=== PATIENT | female | born 1950 | race Caucasian/White ===

== ENCOUNTER 2018-09-15 10:05 | Emergency (ER) | payer MEDICARE, SELFPAY ==
[2018-09-15 10:14] VITALS: BP 125/70; PULSE 77; RESP 16; TEMP 36.6; O2SAT 98
--- NOTE | 2018-09-15 10:24 | W.ED.GENAD ---
Discharge Plan Discharge Details Chief Complaint: Nausea/Vomit/Diar Primary Care Provider: Allison Morgan ED Provider: Jony Pina Home Meds and New Rx's Prescriptions: New Cepacol Sorethroat-Cough 5-7.5 mg lozenge 1 fracisco PO Q4H PRN (Reason: cough) Qty: 16 RF: 3 benzonatate [Tessalon Perles] 100 mg capsule 100 mg PO TID PRN (Reason: cough) Qty: 21 RF: 1 Continued triamcinolone acetonide 15 GM cream 15 gm Topical PRN RF: 0 albuterol sulfate [ProAir HFA] 200 PUFF HFA aerosol inhaler 1 puff Inhalation PRN PRNRF: 0 ropinirole [Requip] 0.5 MG tablet 3 mg PO HS RF: 0 ibandronate [Boniva] 150 MG tablet 1 cap PO DIRECTED RF: 0 fluticasone propion-salmeterol [Advair Diskus] 1 EACH blister with device 1 puff Inhalation BID RF: 0 ranitidine HCl [Zantac] 150 MG tablet 150 mg PO BID RF: 0 hyoscyamine sulfate 0.125 mg Tablet 1 tab PO Q6H PRNRF: 0 ferrous sulfate 325 mg (65 mg iron) Tablet 1 tab PO DAILY RF: 0 fluoxetine 20 mg Tablet 1 tab PO DAILY RF: 0 esomeprazole magnesium 40 mg Capsule,Delayed Release(Dr/Ec) 1 cap PO BID RF: 0 oxybutynin chloride 5 mg Tablet Extended Release 24hr 1 tab PO DAILY RF: 0 clobetasol 0.05 % Ointment 1 applic topical DAILY RF: 0 Discharge Instructions Additional Instructions: Please follow-up with Allison Morgan in clinic for recheck in the next 1-2 weeks time. Continue regular medications. May continue Tessalon 3 times daily as needed for cough. Please begin a trial of Cepacol lozenges as needed for cough. May use Benadryl 25 mg at bedtime to aid in sleep. Return if you develop a fever, increased coughing or difficulty breathing, or any other acute concern. Medical Decision Making 68yof presents from home with complaint of 2 mo's intermittent nausea & cough. She is primarily concerned about the spasmodic cough which is been persistent over 6-8 weeks time. She has not had fever, chills, production of sputum. Is minimally improved with her home inhaler [place] ARGENTINA Morgan [place] [facility] [place] Devi Rosa. History of GERD, IBS and functional bowel disorder. Records reviewed including colonoscopy July 31, 2018 normal with the exception of diverticulosis. GERD most recently controlled with Nexium 40 mg twice daily and Zantac 300 mg nightly. Recent trial of antispasmodic Levsin. Medication trials include MiraLAX as needed and Metamucil. She has had unremarkable EGD in the past and unremarkable Olmos pH study in 2018. Patients most recent medication trial with minimal improvement with tessalon and reglan. Stopped the latter due to side effects. Arrives with normal vital signs. She really is mostly concerned about the persistence of her cough. Does not appear to be infectious. Screening chest x-ray obtained without acute findings. Patient given inhaled saline nebulizer. I will add Cepacol lozenges and trial Benadryl at night. Given her history of GERD I would avoid systemic steroids at this time. She is to follow-up with primary care at [facility]. She understands return precautions. HPI General Mode of arrival: ambulatory. Date/Time Provider Initiated Documentation: 09/15/18 10:06. Limitations to Documentation: no limitations. History of Present Illness 68 year old F presents to the emergency department with the chief complaint of 2 mo's cough and nausea, Quality is described as other, Patient reports no radiation. Patient started experiencing this month(s) and it has been intermittent. No relieving factors improve symptom(s), No exacerbating factors reported . Patient did receive the following treatments prior to arrival, other (tessalon/reglan - stopped reglan due to side effects) Related Data Home Medications Medication Instructions Recorded Confirmed albuterol sulfate [ProAir HFA] 1 puff INHALATION PRN PRN 12/10/12 09/15/18 ropinirole [Requip] 3 mg PO HS 09/18/13 02/04/17 triamcinolone acetonide 15 gm TOPICAL PRN script 01/25/14 09/15/18 ibandronate [Boniva] 1 cap PO DIRECTED 12/04/15 09/15/18 fluticasone propion-salmeterol 1 puff INHALATION BID 02/04/17 09/15/18 [Advair Diskus] ranitidine HCl [Zantac] 150 mg PO BID 02/04/17 09/15/18 benzonatate [Tessalon Perles] 100 mg PO TID PRN #21 cap 09/15/18 clobetasol 1 applic TOPICAL DAILY 09/15/18 09/15/18 dextromethorphan-benzocaine 1 fracisco PO Q4H PRN #16 each 09/15/18 [Cepacol Sorethroat-Cough] esomeprazole magnesium 1 cap PO BID 09/15/18 09/15/18 ferrous sulfate 1 tab PO DAILY 09/15/18 09/15/18 fluoxetine 1 tab PO DAILY 09/15/18 09/15/18 hyoscyamine sulfate 1 tab PO Q6H PRN 09/15/18 09/15/18 oxybutynin chloride 1 tab PO DAILY 09/15/18 09/15/18 Previous Rx's Medication Instructions Recorded benzonatate [Tessalon Perles] 100 mg PO TID PRN #21 cap 09/15/18 dextromethorphan-benzocaine 1 fracisco PO Q4H PRN #16 each 09/15/18 [Cepacol Sorethroat-Cough] Allergies Allergy/AdvReac Type Severity Reaction Status Date / Time codeine [Codeine] AdvReac Intermediate Nausea, Unverified 09/15/18 10:19 Vomiting General Stated Complaint: Nausea/Vomit/Diar YULI: 3 Review of Systems Review of Systems 8 systems reviewed and otherwise neg PFSH Medical History Arthritis Asthma GERD (gastroesophageal reflux disease) Hyperlipidemia Osteopenia Surgical History Cholecystectomy Extraction of cataract eye surgery Social History Smoking and Tabacco status: Never Exam Narrative Exam Narrative: GEN: awake, alert, oriented 3. Pleasant, well groomed, interactive. HEAD: Normocephalic, atraumatic ENT: Mucous membranes moist, oropharynx unremarkable, External ear exam unremarkable EYES: PERRL, EOMI NECK: Full ROM, no GIOVANA, no menigismus CHEST/RESP: Nontender, clear to auscultation bilateral, no wheeze/rhonchi/rales CARDIOVASCULAR: RRR, no murmur, rub dana. 2+ Rad pulse bilateral ABDOMEN: Soft, nontender, no mass. +Bowel sounds EXT: Full ROM, no edema, no rash Neuro: Grossly normal neurologic exam, conversant, interactive. Psych: Speech fluent, thoughts congruent, affect normal Course Vital Signs Temperature 36.6 C 09/15/18 10:14 Pulse 77 09/15/18 10:14 Respiratory Rate 16 09/15/18 10:14 Blood Pressure 125/70 09/15/18 10:14 Pulse Oximetry 98 09/15/18 10:14 Temperature 36.6 C 09/15/18 10:14 Temperature Source Temporal Artery Scan 09/15/18 10:14 Pulse 77 09/15/18 10:14 Respiratory Rate 16 09/15/18 10:14 Blood Pressure 125/70 09/15/18 10:14 Blood Pressure Position Sitting 09/15/18 10:14 Pulse Oximetry 98 09/15/18 10:14 Oxygen Delivery Method Room Air 09/15/18 10:14 Oxygen Flow Rate 0 09/15/18 10:14 Pain Level 0 09/15/18 10:14
--- NOTE | 2018-09-15 10:27 | ED.GENADUL_ITS ---
Discharge Plan Discharge Details Chief Complaint: Nausea/Vomit/Diar Primary Care Provider: Allison Morgan ED Provider: Jony Pina Home Meds and New Rx's Prescriptions: New Cepacol Sorethroat-Cough 5-7.5 mg lozenge 1 fracisco PO Q4H PRN (Reason: cough) Qty: 16 RF: 3 benzonatate [Tessalon Perles] 100 mg capsule 100 mg PO TID PRN (Reason: cough) Qty: 21 RF: 1 Continued triamcinolone acetonide 15 GM cream 15 gm Topical PRN RF: 0 albuterol sulfate [ProAir HFA] 200 PUFF HFA aerosol inhaler 1 puff Inhalation PRN PRNRF: 0 ropinirole [Requip] 0.5 MG tablet 3 mg PO HS RF: 0 ibandronate [Boniva] 150 MG tablet 1 cap PO DIRECTED RF: 0 fluticasone propion-salmeterol [Advair Diskus] 1 EACH blister with device 1 puff Inhalation BID RF: 0 ranitidine HCl [Zantac] 150 MG tablet 150 mg PO BID RF: 0 hyoscyamine sulfate 0.125 mg Tablet 1 tab PO Q6H PRNRF: 0 ferrous sulfate 325 mg (65 mg iron) Tablet 1 tab PO DAILY RF: 0 fluoxetine 20 mg Tablet 1 tab PO DAILY RF: 0 esomeprazole magnesium 40 mg Capsule,Delayed Release(Dr/Ec) 1 cap PO BID RF: 0 oxybutynin chloride 5 mg Tablet Extended Release 24hr 1 tab PO DAILY RF: 0 clobetasol 0.05 % Ointment 1 applic topical DAILY RF: 0 Discharge Instructions Additional Instructions: Please follow-up with Allison Morgan in clinic for recheck in the next 1-2 weeks time. Continue regular medications. May continue Tessalon 3 times daily as needed for cough. Please begin a trial of Cepacol lozenges as needed for cough. May use Benadryl 25 mg at bedtime to aid in sleep. Return if you develop a fever, increased coughing or difficulty breathing, or any other acute concern. Medical Decision Making 68yof presents from home with complaint of 2 mo's intermittent nausea & cough. She is primarily concerned about the spasmodic cough which is been persistent over 6-8 weeks time. She has not had fever, chills, production of sputum. Is minimally improved with her home inhaler Followed by ARGENTINA Morgan at [facility] [place] Dr. Devi Rosa. History of GERD, IBS and functional bowel disorder. Records reviewed including colonoscopy July 31, 2018 normal with the exception of diverticulosis. GERD most recently controlled with Nexium 40 mg twice daily and Zantac 300 mg nightly. Recent trial of antispasmodic Levsin. Medication trials include MiraLAX as needed and Metamucil. She has had unremarkable EGD in the past and unremarkable Olmos pH study in 2018. Patients most recent medication trial with minimal improvement with tessalon and reglan. Stopped the latter due to side effects. Arrives with normal vital signs. She really is mostly concerned about the persistence of her cough. Does not appear to be infectious. Screening chest x- ray obtained without acute findings. Patient given inhaled saline nebulizer. I will add Cepacol lozenges and trial Benadryl at night. Given her history of GERD I would avoid systemic steroids at this time. She is to follow-up with primary care at [facility]. She understands return precautions. HPI General Mode of arrival: ambulatory . Date/Time Provider Initiated Documentation: 09/15/18 10:06 . Limitations to Documentation: no limitations . History of Present Illness 68 year old F presents to the emergency department with the chief complaint of 2 mo's cough and nausea, Quality is described as other, Patient reports no radiation. Patient started experiencing this month(s) and it has been intermittent. No relieving factors improve symptom(s), No exacerbating factors reported . Patient did receive the following treatments prior to arrival, other (tessalon/reglan - stopped reglan due to side effects) Related Data Home Medications Medication Instructions Recorded Confirmed albuterol sulfate [ProAir HFA] 1 puff INHALATION PRN PRN 12/10/12 09/15/18 ropinirole [Requip] 3 mg PO HS 09/18/13 02/04/17 triamcinolone acetonide 15 gm TOPICAL PRN script 01/25/14 09/15/18 ibandronate [Boniva] 1 cap PO DIRECTED 12/04/15 09/15/18 fluticasone propion-salmeterol 1 puff INHALATION BID 02/04/17 09/15/18 [Advair Diskus] ranitidine HCl [Zantac] 150 mg PO BID 02/04/17 09/15/18 benzonatate [Tessalon Perles] 100 mg PO TID PRN #21 cap 09/15/18 clobetasol 1 applic TOPICAL DAILY 09/15/18 09/15/18 dextromethorphan-benzocaine 1 fracisco PO Q4H PRN #16 each 09/15/18 [Cepacol Sorethroat-Cough] esomeprazole magnesium 1 cap PO BID 09/15/18 09/15/18 ferrous sulfate 1 tab PO DAILY 09/15/18 09/15/18 fluoxetine 1 tab PO DAILY 09/15/18 09/15/18 hyoscyamine sulfate 1 tab PO Q6H PRN 09/15/18 09/15/18 oxybutynin chloride 1 tab PO DAILY 09/15/18 09/15/18 Previous Rx's Medication Instructions Recorded benzonatate [Tessalon Perles] 100 mg PO TID PRN #21 cap 09/15/18 dextromethorphan-benzocaine 1 fracisco PO Q4H PRN #16 each 09/15/18 [Cepacol Sorethroat-Cough] Allergies Allergy/AdvReac Type Severity Reaction Status Date / Time codeine [Codeine] AdvReac Intermediate Nausea, Unverified 09/15/18 10:19 Vomiting General Stated Complaint: Nausea/Vomit/Diar YULI: 3 Review of Systems Review of Systems 8 systems reviewed and otherwise neg PFSH Medical History Arthritis Asthma GERD (gastroesophageal reflux disease) Hyperlipidemia Osteopenia Surgical History Cholecystectomy Extraction of cataract eye surgery Social History Smoking and Tabacco status: Never Exam Narrative Exam Narrative: GEN: awake, alert, oriented 3. Pleasant, well groomed, interactive. HEAD: Normocephalic, atraumatic ENT: Mucous membranes moist, oropharynx unremarkable, External ear exam unremarkable EYES: PERRL, EOMI NECK: Full ROM, no GIOVANA, no menigismus CHEST/RESP: Nontender, clear to auscultation bilateral, no wheeze/rhonchi/rales CARDIOVASCULAR: RRR, no murmur, rub dana. 2+ Rad pulse bilateral ABDOMEN: Soft, nontender, no mass. +Bowel sounds EXT: Full ROM, no edema, no rash Neuro: Grossly normal neurologic exam, conversant, interactive. Psych: Speech fluent, thoughts congruent, affect normal Course Vital Signs Temperature 36.6 C 09/15/18 10:14 Pulse 77 09/15/18 10:14 Respiratory Rate 16 09/15/18 10:14 Blood Pressure 125/70 09/15/18 10:14 Pulse Oximetry 98 09/15/18 10:14 Temperature 36.6 C 09/15/18 10:14 Temperature Source Temporal Artery Scan 09/15/18 10:14 Pulse 77 09/15/18 10:14 Respiratory Rate 16 09/15/18 10:14 Blood Pressure 125/70 09/15/18 10:14 Blood Pressure Position Sitting 09/15/18 10:14 Pulse Oximetry 98 09/15/18 10:14 Oxygen Delivery Method Room Air 09/15/18 10:14 Oxygen Flow Rate 0 09/15/18 10:14 Pain Level 0 09/15/18 10:14
--- NOTE | 2018-09-15 10:47 | DI.RAD_ITS ---
SYMPTOMS/DIAGNOSIS: PERSISTENT COUGH X 2 MONTHS PA AND LATERAL CHEST: Comparison 05/05/16. The heart is normal in size. The lungs are clear. The mediastinal structures and pleura appear intact. CONCLUSION: Normal chest.
[2018-09-15] MEDS: Benzonatate 100 MG CAP 200 MG PO (11:25)
--- NOTE | 2018-09-15 11:44 | NUR.NOTE ---
Return from xray at 1140. Up to BR, normal void per patient. Dr Pina in to review plans for pending dischargeNursing Note:
[2018-09-15 11:55] VITALS: BP 125/70; PULSE 94; RESP 15; TEMP 36.8; O2SAT 94
== END 2018-09-15 11:56 | disposition home or self-care (01) ==
PROVIDERS: Emergency Provider Emergency Medicine; PCP Nurse Practitioner
DX: R05 Cough (principal); R11.0 Nausea
CPT/HCPCS: 99283; 71046

== ENCOUNTER 2018-12-12 12:18 | Emergency (ER) | payer MEDICARE, SELFPAY ==
[2018-12-12 12:22] VITALS: BP 126/64; PULSE 79; RESP 18; TEMP 36.3; O2SAT 96
--- NOTE | 2018-12-12 13:16 | W.ED.GENAD ---
Discharge Plan Disposition Patient Disposition: HOME Condition: Good Discharge Details Chief Complaint: RashLesion Clinical Impression: Cellulitis of leg without foot, right Primary Care Provider: Allison Morgan ED Provider: Beny Chinchilla Home Meds and New Rx's Prescriptions: New cephalexin [Keflex] 500 mg capsule 500 mg PO QID 7 Days Qty: 28 RF: 0 Continued albuterol sulfate [ProAir HFA] 200 PUFF HFA aerosol inhaler 1 puff Inhalation PRN PRNRF: 0 ropinirole [Requip] 0.5 MG tablet 3 mg PO HS RF: 0 ibandronate [Boniva] 150 MG tablet 1 cap PO DIRECTED RF: 0 fluticasone propion-salmeterol [Advair Diskus] 1 EACH blister with device 1 puff Inhalation BID RF: 0 ranitidine HCl [Zantac] 150 MG tablet 150 mg PO BID RF: 0 ferrous sulfate 325 mg (65 mg iron) Tablet 1 tab PO DAILY RF: 0 fluoxetine 20 mg Tablet 1 tab PO DAILY RF: 0 esomeprazole magnesium 40 mg Capsule,Delayed Release(Dr/Ec) 1 cap PO BID RF: 0 oxybutynin chloride 5 mg Tablet Extended Release 24hr 1 tab PO DAILY RF: 0 Cepacol Sorethroat-Cough 5-7.5 mg lozenge 1 fracisco PO Q4H PRN (Reason: cough) Qty: 16 RF: 3 Medical Decision Making No constitutional symptoms, lesion most consistent with cellulitis. No calf tenderness or leg swelling to suspect DVT. No joint involvement, no recent trauma to suspect fracture, dislocation, joint injury PTC\\\etc. HPI Patient presents with red tender area right anterior lower leg x1.5 days. No fever, chills, lethargy, arthralgias, joint swelling, calf pain, history of DVT or PE. No recent immobilization or trauma/surgery. No history of recurrent skin infections. No recent strenuous exercise or injury which patient can account for to attribute for current symptoms. General Date/Time Provider Initiated Documentation: 12/12/18 13:13. Related Data Home Medications Medication Instructions Recorded Confirmed albuterol sulfate [ProAir HFA] 1 puff INHALATION PRN PRN 12/10/12 12/12/18 ropinirole [Requip] 3 mg PO HS 09/18/13 12/12/18 ibandronate [Boniva] 1 cap PO DIRECTED 12/04/15 12/12/18 fluticasone propion-salmeterol 1 puff INHALATION BID 02/04/17 12/12/18 [Advair Diskus] ranitidine HCl [Zantac] 150 mg PO BID 02/04/17 12/12/18 Cepacol Sorethroat-Cough 1 fracisco PO Q4H PRN #16 each 09/15/18 12/12/18 esomeprazole magnesium 1 cap PO BID 09/15/18 12/12/18 ferrous sulfate 1 tab PO DAILY 09/15/18 12/12/18 fluoxetine 1 tab PO DAILY 09/15/18 12/12/18 oxybutynin chloride 1 tab PO DAILY 09/15/18 12/12/18 cephalexin [Keflex] 500 mg PO QID 7 Days #28 cap 12/12/18 Previous Rx's Medication Instructions Recorded Cepacol Sorethroat-Cough 1 fracisco PO Q4H PRN #16 each 09/15/18 cephalexin [Keflex] 500 mg PO QID 7 Days #28 cap 12/12/18 Allergies Allergy/AdvReac Type Severity Reaction Status Date / Time codeine [Codeine] AdvReac Intermediate Nausea, Unverified 09/15/18 10:19 Vomiting General Stated Complaint: RashLesion YULI: 5 Review of Systems Constitutional Denies chills, Denies fatigue, Denies fever(s) and Denies lethargy Eyes Denies loss of vision ENT Denies nasal congestion and Denies sore throat Cardiovascular Denies chest pain and Denies dyspnea Respiratory Denies cough and Denies dyspnea Gastrointestinal Denies abdominal pain, Denies nausea and Denies vomiting Musculoskeletal Denies back pain, Denies muscle weakness and Denies numbness Integumentary/Breasts Denies rash Neurologic Denies focal weakness, Denies loss of vision and Denies numbness Endocrine Denies fatigue Hematologic/Lymphatic Denies easy bruising [facility] Medical History Arthritis Asthma GERD (gastroesophageal reflux disease) Hyperlipidemia Osteopenia Surgical History Cholecystectomy Extraction of cataract eye surgery Social History Smoking/Tobacco Use Status: Never Alcohol Intake: never Drug use: Never Substance use type: does not use Do you feel safe in your relationship?: Yes Exam Const General: cooperative and comfortable HENMT Head: normal to inspection Ears: hearing grossly normal bilaterally Mouth: moist mucous membranes Eyes Conjunctivae: conjunctivae normal Sclera: sclerae normal EOM: EOM intact bilaterally Neck Neck: trachea midline Resp Effort & Inspection: normal respiratory effort and able to speak in complete sentences Auscultation: clear to auscultation bilaterally Cardio Rate: regular rate Rhythm: regular rhythm Heart Sounds: no murmurs Skin Full body images: 1. 12 cm x 2 cm erythematous tender warm patch, no blistering, no induration, no central clearing Neuro General: alert, awake, tone normal and moves all extremities Speech: speech normal Gait: normal gait Extrem General: normal to inspection Psych Appearance: grossly normal Mental Status: mental status grossly normal Course Vital Signs Temperature 36.3 C L 12/12/18 12:22 Pulse 79 12/12/18 12:22 Respiratory Rate 18 12/12/18 12:22 Blood Pressure 126/64 12/12/18 12:22 Pulse Oximetry 96 12/12/18 12:22 Temperature 36.3 C L 12/12/18 12:22 Temperature Source Temporal Artery Scan 12/12/18 12:22 Pulse 79 12/12/18 12:22 Respiratory Rate 18 12/12/18 12:22 Respiratory Effort 12/12/18 12:22 Blood Pressure 126/64 12/12/18 12:22 Blood Pressure Position Sitting 12/12/18 12:22 Pulse Oximetry 96 12/12/18 12:22 Oxygen Delivery Method Room Air 12/12/18 12:22 Oxygen Flow Rate 0 12/12/18 12:22
== END 2018-12-12 13:38 | disposition home or self-care (01) ==
PROVIDERS: Emergency Provider Physician Assistant Medical; PCP Nurse Practitioner
DX: L03.115 Cellulitis of right lower limb (principal)
CPT/HCPCS: 99283

== ENCOUNTER 2019-01-06 19:48 | Emergency (ER) | payer MEDICARE, SELFPAY ==
[2019-01-06 19:50] VITALS: BP 126/70; PULSE 84; RESP 16; TEMP 36.3; O2SAT 96
[2019-01-06 20:07] LABS: Bilirubin Negative (Negative); Blood Large (Negative); Clarity Cloudy (Clear); Glucose Negative (Negative); Ketones 15 mg/dL (Negative); Leukocyte Esterase Large (Negative); Nitrite Negative (Negative); Urobilinogen 0.2 EU/dL (Up TO 0.2); pH 6.5 (5-8)
[2019-01-06 20:16] LABS: Bacteria Many HPF (Negative); C & S Indicated? Yes
--- NOTE | 2019-01-06 20:16 | ED.GENADUL_ITS ---
Discharge Plan Disposition Patient Disposition: HOME Condition: Good Discharge Details Chief Complaint: Urinary Clinical Impression: UTI (urinary tract infection) Primary Care Provider: Allison Morgan ED Provider: David Leigh Walker Meds and New Rx's Prescriptions: New sulfamethoxazole-trimethoprim [Bactrim DS] 800-160 mg tablet 1 tab PO BID Qty: 12 RF: 0 ondansetron 4 mg tablet,disintegrating 4 mg PO TID-QID PRN (Reason: nausea and vomiting) Qty: 10 RF: 0 Continued albuterol sulfate [ProAir HFA] 200 PUFF HFA aerosol inhaler 1 puff Inhalation PRN PRNRF: 0 ropinirole [Requip] 0.5 MG tablet 3 mg PO HS RF: 0 ibandronate [Boniva] 150 MG tablet 1 cap PO DIRECTED RF: 0 fluticasone propion-salmeterol [Advair Diskus] 1 EACH blister with device 1 puff Inhalation BID RF: 0 ranitidine HCl [Zantac] 150 MG tablet 150 mg PO BID RF: 0 ferrous sulfate 325 mg (65 mg iron) Tablet 1 tab PO DAILY RF: 0 fluoxetine 20 mg Tablet 1 tab PO DAILY RF: 0 esomeprazole magnesium 40 mg Capsule,Delayed Release(Dr/Ec) 1 cap PO BID RF: 0 oxybutynin chloride 5 mg Tablet Extended Release 24hr 1 tab PO DAILY RF: 0 phenazopyridine 100 mg tablet 100 mg PO TID RF: 0 Discharge Instructions Instructions: Urinary Tract Infection in Women (ED) Additional Instructions: The urine does appear infected again. CT scan reveals no kidney stone. Because you were just recently on an antibiotic, we will treat for 1 week. You may take the Pyridium for 2 days. You may use the ondansetron as needed for nausea/vomiting. Follow-up with your primary care at the end of next week to be sure your urine infection has cleared. Return to ED if you develop fever, chills, abdominal pain, persistent vomiting, back or flank pain. Referrals: Allison Morgan [Primary Care Provider] - Discharge Data Discharge Date/Time-TO BE ENTERED AT DEPARTURE: 01/06/19 20:04 Medical Decision Making Patient presenting with urinary complaints. She looks well. She has no fever. She has normal vitals. She has no CVAT but is complaining of lower back d iscomfort right greater than left. Urine is positive for blood and leukocyte esterase. On micro it is reported too many to count red cells and white cells as well as rober-like bacteria. Urine culture from [facility] which was done last month was E. coli pretty much sensitive to everything except amoxicillin and Augmentin. Because of her complaint of back pain with recurrent symptoms so quickly from treatment of UTI, I did elect to get a stone study. This is negative with no evidence of stone. We will treat patient as UTI, however, given recent treatment with antibiotics, we will go ahead and treat with Bactrim for 1 week. She has Pyridium from previous infection that she may take. This did cause nausea last time, so I will also give her Zofran. We will have her follow-up with primary care next week when antibiotic is completed to be sure infection is cleared. Return to ED for fever, chills, abdominal pain, vomiting,\flank pain. Medical Records Medical records reviewed: Yes I reviewed the patient's medical records. Imaging Data Radiologic Study: Imaging: CT Scan Radiologist's impression: EXAM: CT Abdomen and Pelvis Without Contrast EXAM DATE/TIME: 01/06/2019 8:52 PM CLINICAL HISTORY: 68 years old, female; Abdominal pain; Prior surgery; Surgery date: 6+ months; Surgery type: Gallbladder surgery years ago. ; Patient HX: Right sided flank pain x3 hours ago, with UTI. No recent kidney stones no gross hematuria. TECHNIQUE: Imaging protocol: Axial computed tomography images of the abdomen and pelvis without contrast. Coronal and sagittal reformatted images were created and reviewed. Radiation optimization: All CT scans at this facility use at least one of these dose optimization techniques: automated exposure control; mA and/or kV adjustment per patient size (includes targeted exams where dose is matched to clinical indication); or iterative reconstruction. COMPARISON: CT ABD PELVIS WITH CONTRAST 12/05/2015 12:44 AM FINDINGS: Mediastinum: Small hiatal hernia. Liver: Normal. No mass. Gallbladder and bile ducts: Status post cholecystectomy. Pancreas: Normal. No ductal dilation. Spleen: Incidental note made of accessory splenic ossicle. Adrenals: Normal. No mass. Kidneys and ureters: Left renal cyst. Stomach and bowel: Gastric distention noted with fluid material. Appendix: Appendix well seen, within normal limits. Intraperitoneal space: Normal. No free air. No significant fluid collection. Vasculature: Mild atherosclerotic change present in the vasculature. Lymph nodes: Normal. No enlarged lymph nodes. Bladder: Bladder not well distended. Reproductive: Uterine fibroid. Bones/joints: No acute fracture. No dislocation. Soft tissues: Unremarkable. IMPRESSION: No acute abnormality seen to account for symptoms. COMMENT: Preliminary interpretation is based on receipt of 312 image(s). A final report will be issued subsequently. Dictated and Authenticated by: Cheryl Castillo MD. Lab Data Lab results reviewed: Yes I reviewed the patient's lab results. HPI General Mode of arrival: ambulatory . Date/Time Provider Initiated Documentation: 01/06/19 20:03 . Limitations to Documentation: no limitations . Information obtained by: patient, RN notes reviewed and old records reviewed . HPI Narrative: Patient presents to ED with complaints of urinary urgency, frequency, dysuria. Patient was treated for UTI that was diagnosed on the . She was given Keflex. Symptoms did seem to resolve. Today's symptoms have returned. She has urgency, frequency, dysuria. She denies fevers or chills. She denies abdominal pain, nausea, vomiting. She has some low back pain but it seems to be bilateral. She denies flank pain. She denies colic. Related Data Home Medications Medication Instructions Recorded Confirmed albuterol sulfate [ProAir HFA] 1 puff INHALATION PRN PRN 12/10/12 01/06/19 ropinirole [Requip] 3 mg PO HS 09/18/13 01/06/19 ibandronate [Boniva] 1 cap PO DIRECTED 12/04/15 01/06/19 fluticasone propion-salmeterol 1 puff INHALATION BID 02/04/17 01/06/19 [Advair Diskus] ranitidine HCl [Zantac] 150 mg PO BID 02/04/17 01/06/19 esomeprazole magnesium 1 cap PO BID 09/15/18 01/06/19 ferrous sulfate 1 tab PO DAILY 09/15/18 01/06/19 fluoxetine 1 tab PO DAILY 09/15/18 01/06/19 oxybutynin chloride 1 tab PO DAILY 09/15/18 01/06/19 ondansetron 4 mg PO TID-QID PRN #10 tab 01/06/19 phenazopyridine 100 mg PO TID 01/06/19 01/06/19 sulfamethoxazole-trimethoprim 1 tab PO BID #12 tab 01/06/19 [Bactrim DS] Previous Rx's Medication Instructions Recorded ondansetron 4 mg PO TID-QID PRN #10 tab 01/06/19 sulfamethoxazole-trimethoprim 1 tab PO BID #12 tab 01/06/19 [Bactrim DS] Allergies Allergy/AdvReac Type Severity Reaction Status Date / Time codeine [Codeine] AdvReac Intermediate Nausea, Unverified 01/06/19 19:55 Vomiting General Stated Complaint: Urinary YULI: 4 Review of Systems Review of Systems As documented in HPI otherwise negative as below. Const: no fever, chills, weakness Resp: no cough, SOB, pleuritic pain CV: no CP, diaphoresis, edema, syncope GI: no abdominal pain, nausea, vomiting, diarrhea Neuro: no headache, numbness, focal weakness, confusion PFSH Medical History UTI (urinary tract infection) (Acute) Arthritis (Chronic) Asthma (Chronic) GERD (gastroesophageal reflux disease) (Chronic) Hyperlipidemia (Chronic) Osteopenia (Chronic) Surgical History Cholecystectomy (Chronic) eye surgery (Chronic) Extraction of cataract (Inactive) Social History Smoking/Tobacco Use Status: Never Alcohol Intake: never Drug use: Never Substance use type: does not use Do you feel safe in your relationship?: Yes Additional Social history: pt is not alone to assess privately Exam Narrative Exam Narrative: Vitals: Afebrile with normal vitals. Const: WDWN elderly female in NAD. HEENT: NC/AT. Normal facial exam. Eyes: Normal conjunctiva and sclera. Neck: Supple. Trachea midline. Lungs: Normal respiratory effort. Lungs are clear. Cor: RRR without murmur/gallop. Good radial pulses. GI: Soft. NT/ND. No guarding or rebound. Back: No CVAT. Neuro: A+O x 3. CN grossly in tact. Good strength and no focal deficit. Ext: No C/C/E. No deformity or tenderness. Skin: Warm and dry without rash. Course Vital Signs Temperature 97.3 F L 01/06/19 19:50 Pulse 84 01/06/19 19:50 Respiratory Rate 16 01/06/19 19:50 Blood Pressure 126/70 01/06/19 19:50 Pulse Oximetry 96 01/06/19 19:50 Temperature 97.3 F L 01/06/19 19:50 Temperature Source Skin 01/06/19 19:50 Pulse 84 01/06/19 19:50 Respiratory Rate 16 01/06/19 19:50 Respiratory Effort Non-Labored 01/06/19 19:53 Blood Pressure 126/70 01/06/19 19:50 Pulse Oximetry 96 01/06/19 19:50 Pain Level 8 01/06/19 19:56 Lab/Test Results Lab/Test Results: Laboratory Tests Range/Units 01/06/19 20:00 Urine Color (Yellow) Yellow Urine Clarity (Clear) Cloudy Urine pH (5-8) 6.5 Ur Specific [place] (1.005-1.025) 1.020 Urine Protein (Negative) mg/dL 30 H Urine Ketones (Negative) mg/dL 15 H Urine Blood (Negative) Large H Urine Nitrite (Negative) Negative Urine Bilirubin (Negative) Negative Urine Urobilinogen (Up TO 0.2) EU/dL 0.2 Ur Leukocyte Esterase (Negative) Large H Urine Glucose (Negative) mg/dL Negative
--- NOTE | 2019-01-06 20:51 | DI.CT_ITS ---
SYMPTOM/DIAGNOSIS: BACK PAIN WITH UTI, EVAL FOR STONE NONCONTRAST CT ABDOMEN AND PELVIS: Comparison is made with 05 Dec 2015. The patient is status post cholecystectomy. There is no biliary dilatation. The spleen, pancreas, adrenals and right kidney are unremarkable. There is a small low density area in the mid left kidney consistent with a cyst, seen on the previous exam. There is no urinary tract calculus. The urinary bladder is unremarkable and mildly distended. The uterus shows a few fibroids. The ovaries are normal in size. There is no free air, free fluid or bowel dilatation. The appendix appears normal. The aorta is normal in diameter. IMPRESSION: No evidence of urinary tract calculi, hydronephrosis or other acute abnormality.
--- NOTE | 2019-01-06 21:31 | DI.VRAD_ITS ---
EXAM: CT Abdomen and Pelvis Without Contrast EXAM DATE/TIME: 01/06/2019 8:52 PM CLINICAL HISTORY: 68 years old, female; Abdominal pain; Prior surgery; Surgery date: 6+ months; Surgery type: Gallbladder surgery years ago. ; Patient HX: Right sided flank pain x3 hours ago, with UTI. No recent kidney stones no gross hematuria. TECHNIQUE: Imaging protocol: Axial computed tomography images of the abdomen and pelvis without contrast. Coronal and sagittal reformatted images were created and reviewed. Radiation optimization: All CT scans at this facility use at least one of these dose optimization techniques: automated exposure control; mA and/or kV adjustment per patient size (includes targeted exams where dose is matched to clinical indication); or iterative reconstruction. COMPARISON: CT ABD PELVIS WITH CONTRAST 12/05/2015 12:44 AM FINDINGS: Mediastinum: Small hiatal hernia. Liver: Normal. No mass. Gallbladder and bile ducts: Status post cholecystectomy. Pancreas: Normal. No ductal dilation. Spleen: Incidental note made of accessory splenic ossicle. Adrenals: Normal. No mass. Kidneys and ureters: Left renal cyst. Stomach and bowel: Gastric distention noted with fluid material. Appendix: Appendix well seen, within normal limits. Intraperitoneal space: Normal. No free air. No significant fluid collection. Vasculature: Mild atherosclerotic change present in the vasculature. Lymph nodes: Normal. No enlarged lymph nodes. Bladder: Bladder not well distended. Reproductive: Uterine fibroid. Bones/joints: No acute fracture. No dislocation. Soft tissues: Unremarkable. IMPRESSION: No acute abnormality seen to account for symptoms. COMMENT: Preliminary interpretation is based on receipt of 312 image(s). A final report will be issued subsequently. Dictated and Authenticated by: Cheryl Castillo MD. Ordering:PAUL Hernandez MD
[2019-01-06] MEDS: Ondansetron O.D.T. 4 MG TABEF PO ×2 (21:57)
[2019-01-06] MEDS: Sulfameth/Trimeth DS TAB 1 TAB PO ×2 (21:58→21:59)
[2019-01-06 22:01] VITALS: BP 127/66; PULSE 82; RESP 16; O2SAT 95
== END 2019-01-06 20:04 | disposition home or self-care (01) ==
PROVIDERS: Emergency Provider Emergency Medicine; PCP Nurse Practitioner
DX: N39.0 Urinary tract infection, site not specified (principal); R10.31 Right lower quadrant pain; R11.0 Nausea; Z87.440 Personal history of urinary (tract) infections
CPT/HCPCS: 87077; 99284; 74176; 81003; 81015; 87086; 87186

== ENCOUNTER 2019-12-18 18:45 | Emergency (ER) | payer MEDICARE, SELFPAY ==
[2019-12-18 18:56] VITALS: BP 143/71; PULSE 73; RESP 16; TEMP 36.7; O2SAT 98
--- NOTE | 2019-12-18 19:00 | DI.CT_ITS ---
EXAM: CT CERVICAL SPINE WO CLINICAL HISTORY: Fall, neck pain. TECHNIQUE: Imaging Protocol: Axial computed tomography images with coronal and sagittal reformatted images were created and reviewed CONTRAST MATERIAL: Intravenous: Omnipaque 350 Contrast volume:structured data in ml Contrast route:I V - Oral: yes / no COMPARISON: CT HEAD AND CSPINE W/O CONTRAST from 12/04/2015 FINDINGS: Bones: No fracture or dislocations are seen. The alignment of the cervical spine is normal including the cervicovertebral junction and cervicothoracic junction. Degenerative disc changes and facet degenerative changes are seen. Soft Tissues: The soft tissues of the neck are unremarkable. No large disk herniations are identified . No pneumothorax is seen at the lung apices. IMPRESSION: Degenerative changes. No acute abnormality.. RADIATION DOSE DELIVERED: 290.07mGy.cm Total DLP DATA REPOSITORY: All CT scans at this facility are submitted to the National Radiology Data Registry (NRDR) Dose Index Registry (DIR) with the [employer] (ACR). RADIATION OPTIMIZATION: All CT scans at this facility use at least one of these dose optimization te chniques: automated exposure control; mA and/or kV adjustment per patient size (includes targeted exa ms where dose is matched to clinical indication); or iterative reconstruction.
[2019-12-18 19:33] LABS: Abs Immature Grans 0.07 k/cumm (0.0-0.09); Absolute Basophil Count 0.07 k/cumm (0.0-0.2); Absolute Eosinophil Count 0.66 k/cumm (0.0-0.7); Absolute Lymphocyte Count 2.59 k/cumm (1.2-3.4); Absolute Monocyte Count 1.62 k/cumm (0.11-0.7); Basophils % 0.6; Eosinophils % 5.8; HCT 40.8 % (36.0-46.0); HGB 13.7 g/dL (12.0-15.5); Immature Grans % 0.6 %; Lymphocytes % 22.9; Mean Corp. HGB Concentration 33.6 g/dL (32.0-36.0); Mean Corpuscular Hemoglobin 29.7 pg (27.0-33.0); Mean Corpuscular Volume 88.5 fL (80-95); Mean Platelet Volume 10.1 fL (8.0-11.0); Monocytes % 14.3; Neutrophils % 55.8; Platelet Count 331 x1000/uL (130-400); RBC 4.61 m/cumm (4.00-5.20); RBC Distribution Width 12.9 % (11.7-14.6)
[2019-12-18 19:34] LABS: Absolute Neutrophil Count 6.31 k/cumm (1.2-6.7)
[2019-12-18 19:47] LABS: Diff Comment Agrees w/ Instrument
[2019-12-18 19:48] LABS: ALT 47 U/L (14-59); AST 20 U/L (15-37); Albumin 3.4 g/dL (3.4-5.0); Alkaline Phosphatase 94 U/L (46-116); Anion Gap 8.7 mmol/L (3-11); BUN 20 mg/dL (7-18); Bilirubin, Total 0.5 mg/dL (0.2-1.0); CO2 26.3 mmol/L (21.0-32.0); CREATININE 1.02 mg/dL (0.55-1.02); Chloride 106 mmol/L (98-107); Estimated GFR 53.42 (mL/min/1.73m2); Glucose 117 mg/dL (74-106); Potassium 3.7 mmol/L (3.5-5.1); RBC Morphology Normal; Sodium 141 mmol/L (136-145); Total Protein 6.6 g/dL (6.4-8.2)
[2019-12-18 19:49] LABS: Troponin I < 0.05 ng/mL (<0.06)
--- NOTE | 2019-12-18 19:49 | NUR.NOTE ---
Nursing Note: cervical collar applied at 1900 per provider request. Ice pack also applied to left neck.
--- NOTE | 2019-12-18 19:57 | ED.GENADUL_ITS ---
Discharge Plan Disposition Patient Disposition: HOME Condition: Stable Discharge Details Chief Complaint: Nk/Back Pain Clinical Impression: Neck pain Primary Care Provider: Allison Morgan ED Provider: Thong Patricia Home Meds and New Rx's Prescriptions: New cyclobenzaprine 5 mg tablet 5 mg PO TID PRN (Reason: muscle spasm) Qty: 10 RF: 0 Continued albuterol sulfate [ProAir HFA] 200 PUFF HFA aerosol inhaler 1 puff Inhalation PRN PRNRF: 0 ropinirole [Requip] 0.5 MG tablet 3 mg PO HS RF: 0 ibandronate [Boniva] 150 MG tablet 1 cap PO DIRECTED RF: 0 fluticasone propion-salmeterol [Advair Diskus] 1 EACH blister with device 1 puff Inhalation BID RF: 0 ranitidine HCl [Zantac] 150 MG tablet 150 mg PO BID RF: 0 ferrous sulfate 325 mg (65 mg iron) Tablet 1 tab PO DAILY RF: 0 fluoxetine 20 mg Tablet 1 tab PO DAILY RF: 0 esomeprazole magnesium 40 mg Capsule,Delayed Release(Dr/Ec) 1 cap PO BID RF: 0 oxybutynin chloride 5 mg Tablet Extended Release 24hr 1 tab PO DAILY RF: 0 Discharge Instructions Instructions: Neck Pain (ED) Additional Instructions: At this time your blood work, EKG, CT imaging of your neck all reveal no obvious emergent process. Cool and/or warm compresses every 2 hours for 20 minutes. Gentle stretching as tolerated. Flexeril as directed, may cause drowsiness. Ovul-eho-tjysxph medications such as Tylenol and/or Motrin as directed for discomfort. Please watch for new or worsening symptoms and return to the ER for any concerns. I do recommend following up with your primary care provider on Friday as already scheduled. If symptoms persist additional medication may be required or possible outpatient physical therapy. Medical Decision Making This is a 69-year-old female with a history of arthritis, asthma, GERD, hyperlipidemia. She presents with a couple day history of left-sided and posterior neck pain. The pain is worse with movement. It is not described as a searing or burning pain. She denies any radiation of her pain. Pain is worse now today after falling and striking her head. Clinically she appears well, nontoxic. She does have muscular reproducible discomfort to palpation, worse with ipsilateral movement. She has diffuse discomfort to the lateral posterior aspect but no midline bony point tenderness. No obvious head trauma. I do believe given her fall and increased pain, placing her into a c-collar and obtaining CT imaging of her C-spine is perfectly reasonable. Do not believe that a CTA is indicated as I believe that a carotid dissection is extremely low suspicion. Given the symptoms have been present for the past couple of days, I believe that a CBC, CMP, EKG, single troponin is reasonable for cardiac rule out although again extremely low suspicion. Patient is agreeable to this. Patient placed in a c-collar. Initial laboratory values reveal a WBC of 11.3 hemoglobin 13.7 hematocrit 40.8 platelet 331. Electrolytes unremarkable. Creatinine 1.02, estimated GFR 53.42. Troponin is less than 0.05. Patient requests medication for discomfort, reports that the c-collar has made symptoms worse. She was given p.o. Motrin. CT resulted with no evidence of acute abnormality, CT removed. Patient reports that the c-collar made her discomfort worse. She was given IV Toradol and Valium. Upon reevaluation she reports some relief of her symptoms although not resolved completely. She appears well, nontoxic. She remains neurologically intact. Discussed our options, she reports that she has follow- up with her primary care provider on Friday and would like to be discharged. She will take [id number] Tylenol and/or Motrin as directed for her discomfort and I will provide her a short-term prescription for Flexeril. We discussed the importance of gentle stretching, cool and/or warm compresses, and upon reevaluation on Friday if no improvement then additional studies may be indicated, even outpatient physical therapy. Patient comfortable this plan and has no additional questions or concerns. Medical Records Medical records reviewed: Yes I reviewed the patient's medical records. Imaging Data Radiologic Study: Attestation: I personally reviewed and interpreted this imaging study as follows: Imaging: CT Scan Radiologist's impression: Cervical spine and head CT without contrast read by virtual radiology as no evidence of acute bony abnormality. Diffused degenerative disc and facet disease. Lab Data Lab results reviewed: Yes I reviewed the patient's lab results. Lab results narrative: Laboratory Tests Range/Units 12/18/19 12/18/19 19:25 19:25 WBC (4.4-10.8) k/cumm 11.30 H RBC (4.00-5.20) m/cumm 4.61 Hgb (12.0-15.5) g/dL 13.7 Hct (36.0-46.0) % 40.8 MCV (80-95) fL 88.5 MCH (27.0-33.0) pg 29.7 MCHC (32.0-36.0) g/dL 33.6 RDW (11.7-14.6) % 12.9 Plt Count (130-400) x1000/uL 331 MPV (8.0-11.0) fL 10.1 Immature Gran % % 0.6 Neutrophils % 55.8 Lymphocytes % 22.9 Monocytes % 14.3 Eosinophils % 5.8 Basophils % 0.6 Absolute Neutrophils (1.2-6.7) k/cumm 6.31 Absolute Lymphocytes (1.2-3.4) k/cumm 2.59 Absolute Monocytes (0.11-0.7) k/cumm 1.62 H Absolute Eosinophils (0.0-0.7) k/cumm 0.66 Absolute Basophils (0.0-0.2) k/cumm 0.07 Differential Comment Agrees w/ instrument RBC Morphology Normal Sodium (136-145) mmol/L 141 Potassium (3.5-5.1) mmol/L 3.7 Chloride (98-107) mmol/L 106 Carbon Dioxide (21.0-32.0) mmol/L 26.3 Anion Gap (3-11) mmol/L 8.7 BUN (7-18) mg/dL 20 H Creatinine (0.55-1.02) mg/dL 1.02 Estimated GFR/1.73 m2 (mL/min/1.73m2) 53.42 Glucose (74-106) mg/dL 117 H Calcium (8.5-10.1) mg/dL 9.0 Total Bilirubin (0.2-1.0) mg/dL 0.5 AST (15-37) U/L 20 ALT (14-59) U/L 47 Alkaline Phosphatase (46-116) U/L 94 Troponin I (<0.06) ng/mL < 0.05 Total Protein (6.4-8.2) g/dL 6.6 Albumin (3.4-5.0) g/dL 3.4 ECG Data Attestation: I personally reviewed and interpreted this ECG (s) as follows: Interpretation: EKG performed at 1917, reviewed and interpreted with Dr. Lua. Sinus rhythm, ventricular rate of 75. No STEMI HPI General Mode of arrival: ambulatory . Date/Time Provider Initiated Documentation: 12/18/19 18:56 . Limitations to Documentation: no limitations . Information obtained by: patient . HPI Narrative: This is a 69-year-old female with a history of GERD, hyperlipidemia, osteopenia, asthma presenting to the ER with mild left-sided/posterior neck pain that is been ongoing for the past 2-3 days. She denies any obvious initial trauma but reports that it felt like a pulled muscle, thought as though she may have overdone it. She took hfqk-qmw-[id number] medication with some moderate relief. She woke up this morning feeling as though she slept awkwardly and had increased neck discomfort. Around dinner tonight she was walking her dog, had a mechanical fall, falling backward. Denies any LOC. She now reports increased neck discomfort as well as posterior head discomfort. Pain is moderate at rest, increases with movement. She denies any radiation of the pain into her chest, down her arm, shoulder, into her back. She denies any chest pain, shortness of breath whatsoever. She denies numbness, tingling, weakness, abdominal pain, nausea, vomiting. Related Data Home Medications Medication Instructions Recorded Confirmed albuterol sulfate [ProAir HFA] 1 puff INHALATION PRN PRN 12/10/12 12/18/19 ropinirole [Requip] 3 mg PO HS 09/18/13 12/18/19 ibandronate [Boniva] 1 cap PO DIRECTED 12/04/15 12/18/19 fluticasone propion-salmeterol 1 puff INHALATION BID 02/04/17 12/18/19 [Advair Diskus] ranitidine HCl [Zantac] 150 mg PO BID 02/04/17 12/18/19 esomeprazole magnesium 1 cap PO BID 09/15/18 12/18/19 ferrous sulfate 1 tab PO DAILY 09/15/18 12/18/19 fluoxetine 1 tab PO DAILY 09/15/18 12/18/19 oxybutynin chloride 1 tab PO DAILY 09/15/18 12/18/19 cyclobenzaprine 5 mg PO TID PRN #10 tab 12/18/19 Previous Rx's Medication Instructions Recorded cyclobenzaprine 5 mg PO TID PRN #10 tab 12/18/19 Allergies Allergy/AdvReac Type Severity Reaction Status Date / Time codeine [Codeine] AdvReac Intermediate Nausea, Unverified 12/18/19 21:17 Vomiting General Stated Complaint: Nk/Back Pain YULI: 4 Review of Systems Constitutional Constitutional: Denies fatigue, Denies fever(s), Reports headache(s) and Denies weakness Eyes Eyes: Denies change in vision ENT Ears, Nose, Mouth, and Throat: Reports headache(s) and Reports neck pain Cardiovascular Cardiovascular: Denies chest pain and Denies dyspnea Respiratory Respiratory: Denies cough and Denies dyspnea Gastrointestinal Gastrointestinal: Denies abdominal pain, Denies nausea and Denies vomiting Genitourinary Genitourinary: Denies dysuria Musculoskeletal Musculoskeletal: Reports neck pain, Denies numbness and Denies tingling Integumentary/Breasts Skin/Breast: Denies rash Neurologic Neurologic: Reports headache(s), Denies numbness, Denies tingling and Denies weakness Endocrine Endocrine: Denies fatigue PFSH Medical History Arthritis (Chronic) Asthma (Chronic) GERD (gastroesophageal reflux disease) (Chronic) Hyperlipidemia (Chronic) Osteopenia (Chronic) UTI (urinary tract infection) (Acute) Surgical History Cholecystectomy (Chronic) Extraction of cataract (Inactive) eye surgery (Chronic) macular surgery and cataracts Social History Smoking/Tobacco Use Status: Never Alcohol Intake: never Drug use: Never Substance use type: does not use Do you feel safe at home: Yes Do you feel safe in your relationship?: Yes Exam Const General: cooperative, healthy appearing, comfortable and no acute distress Orientation: alert, awake and oriented x3 HENMT Head: normal to inspection, normocephalic and atraumatic Mouth: moist mucous membranes Eyes Conjunctivae: conjunctivae normal Neck Neck: normal visual inspection, full ROM, no lymphadenopathy, no meningeal signs, trachea midline, supple, tender (Left paravertebral and sternocleidomastoid) and other (Increases discomfort with ipsilateral movement) Chest Chest: normal inspection of the chest and normal palpation of entire chest wall Resp Effort & Inspection: normal respiratory effort and able to speak in complete sentences Auscultation: clear to auscultation bilaterally Cardio Rate: regular rate Rhythm: regular rhythm GI Palpation: soft, no pulsatile masses and nontender Back/Spine/Pelvis Back: No back tenderness Skin General skin exam: no rashes or lesions noted Neuro General: patient alert, patient awake, moves all extremities and no focal motor deficits Cranial Nerves: CN's II-XI intact bilaterally Cognition: normal cognition Speech: speech normal Gait: normal gait Motor: muscle tone normal throughout and strength 5/5 throughout Sensory Exam: no sensory deficits noted Extrem General: normal to inspection, full ROM, capillary refill normal, no pedal edema and no calf tenderness Psych Appearance: grossly normal Mental Status: mental status grossly normal Course Vital Signs Vital signs: Vital Signs Temperature 36.7 C 12/18/19 18:56 Pulse 73 12/18/19 18:56 Respiratory Rate 16 12/18/19 18:56 Blood Pressure 143/71 H 12/18/19 18:56 Pulse Oximetry 98 12/18/19 18:56 Temperature 36.7 C 12/18/19 18:56 Temperature Source Tympanic 12/18/19 18:56 Pulse 73 12/18/19 18:56 Respiratory Rate 16 12/18/19 18:56 Respiratory Effort Non-Labored 12/18/19 18:58 Blood Pressure 143/71 H 12/18/19 18:56 Blood Pressure Position Sitting 12/18/19 18:56 Pulse Oximetry 98 12/18/19 18:56 Oxygen Delivery Method Room Air 12/18/19 18:56 Oxygen Flow Rate 0 12/18/19 18:56 Pain Level 7 12/18/19 18:56 Lab/Test Results Lab/Test Results: Laboratory Tests Range/Units 12/18/19 12/18/19 19:25 19:25 WBC (4.4-10.8) k/cumm 11.30 H RBC (4.00-5.20) m/cumm 4.61 Hgb (12.0-15.5) g/dL 13.7 Hct (36.0-46.0) % 40.8 MCV (80-95) fL 88.5 MCH (27.0-33.0) pg 29.7 MCHC (32.0-36.0) g/dL 33.6 RDW (11.7-14.6) % 12.9 Plt Count (130-400) x1000/uL 331 MPV (8.0-11.0) fL 10.1 Immature Gran % % 0.6 Neutrophils % 55.8 Lymphocytes % 22.9 Monocytes % 14.3 Eosinophils % 5.8 Basophils % 0.6 Absolute Neutrophils (1.2-6.7) k/cumm 6.31 Absolute Lymphocytes (1.2-3.4) k/cumm 2.59 Absolute Monocytes (0.11-0.7) k/cumm 1.62 H Absolute Eosinophils (0.0-0.7) k/cumm 0.66 Absolute Basophils (0.0-0.2) k/cumm 0.07 Differential Comment Agrees w/ instrument RBC Morphology Normal Sodium (136-145) mmol/L 141 Potassium (3.5-5.1) mmol/L 3.7 Chloride (98-107) mmol/L 106 Carbon Dioxide (21.0-32.0) mmol/L 26.3 Anion Gap (3-11) mmol/L 8.7 BUN (7-18) mg/dL 20 H Creatinine (0.55-1.02) mg/dL 1.02 Estimated GFR/1.73 m2 (mL/min/1.73m2) 53.42 Glucose (74-106) mg/dL 117 H Calcium (8.5-10.1) mg/dL 9.0 Total Bilirubin (0.2-1.0) mg/dL 0.5 AST (15-37) U/L 20 ALT (14-59) U/L 47 Alkaline Phosphatase (46-116) U/L 94 Troponin I (<0.06) ng/mL < 0.05 Total Protein (6.4-8.2) g/dL 6.6 Albumin (3.4-5.0) g/dL 3.4
[2019-12-18] MEDS: Ibuprofen 800 MG TAB PO (20:00)
--- NOTE | 2019-12-18 20:52 | DI.VRAD_ITS ---
PROCEDURE INFORMATION: Exam: CT Cervical Spine Without Contrast Exam date and time: 12/18/2019 7:10 PM Age: 69 years old Clinical indication: Pain and injury or trauma; Initial encounter; Blunt trauma; Patient HX: Fall, neck pain TECHNIQUE: Imaging protocol: Computed tomography images of the cervical spine without contrast. COMPARISON: CT HEAD AND CSPINE W/O CONTRAST 12/04/2015 9:34 PM FINDINGS: Diffuse degenerative disc and facet disease. No focal subluxation. No fracture is present. No radiopaque foreign body is identified. Parasinous soft tissues unremarkable. Lung apices within normal limits. IMPRESSION: No evidence of acute bony abnormality. Dictated and Authenticated by: Jonas Nino MD. Ordering:ARTHUR Benito MD
[2019-12-18] MEDS: diazePAM 10 MG/2 ML SYR 5 MG IVP (21:24)
[2019-12-18] MEDS: Ketorolac 15 MG/ML VIAL IM (21:25)
[2019-12-18 22:13] VITALS: BP 123/72; PULSE 69; RESP 17; TEMP 36.8; O2SAT 95
[2019-12-18 22:35] VITALS: BP 123/72; PULSE 69; RESP 17; TEMP 36.8; O2SAT 95
== END 2019-12-18 22:35 | disposition home or self-care (01) ==
PROVIDERS: Emergency Provider Physician Assistant; PCP Nurse Practitioner
DX: M54.2 Cervicalgia (principal); W19.XXXA Unspecified fall, initial encounter; Y93.K1 Activity, walking an animal
CPT/HCPCS: 36415; 80053; 93005; 96372; 96374; 99285; 72125; 84484; 85025; 93010; 99284; J1885; J3360; L0172

== ENCOUNTER 2021-12-27 20:07 | Observation (INO) | payer MEDICARE, SELFPAY ==
[2021-12-27] VITALS (34 sets, daily range): BP systolic 96–124; BP diastolic 53–87; PULSE 57–92; RESP 12–29; TEMP 36.8; O2SAT 94–98
--- NOTE | 2021-12-27 20:00 | RT.EKG_ITS ---
APPROVED REPORT Exam: Resting ECG Reason for Exam: syncopal episode Patient Location: E HR:76 bpm ECG Measurements Heart Rate 76 AXIS WY 158 P 47 QRSd 81 QRS 18 QT 399 T 17 QTc 451 Conclusion Sinus rhythm...normal P axis, V-rate 60- 99
--- NOTE | 2021-12-27 20:15 | DI.CT_ITS ---
Exam(s) CT HEAD WO EXAM: CT HEAD WO CLINICAL HISTORY: headache, syncope. TECHNIQUE: Imaging Protocol: Axial computed tomography images with coronal and sagittal reformatted images were created and reviewed COMPARISON: CT HEAD AND CSPINE W/O CONTRAST from 12/04/2015 FINDINGS: Ventricles and Extra axial spaces: Normal in size and morphology for the patient's age. Hemorrhage: None. Cerebral parenchyma: No acute territorial infarct. Midline shift: None. Brainstem/Cerebellum: Normal. Calvarium: Normal. Visualized Paranasal sinuses/Mastoids: Clear. Soft Tissues: There may be a small scalp hematoma overlying the posterior right parietal bone. IMPRESSION: No acute intracranial process. RADIATION DOSE DELIVERED: 686.52mGy.cm Total DLP DATA REPOSITORY: All CT scans at this facility are submitted to the National Radiology Data Registry (NRDR) Dose Index Registry (DIR) with the [employer] ([employer]). RADIATION OPTIMIZATION: All CT scans at this facility use at least one of these dose optimization te chniques: automated exposure control; mA and/or kV adjustment per patient size (includes targeted exa ms where dose is matched to clinical indication); or iterative reconstruction.
--- NOTE | 2021-12-27 20:15 | DI.CT_ITS ---
Exam(s) CT ABDOMEN PELVIS WO EXAM: CT ABDOMEN PELVIS WO CLINICAL HISTORY: RLQ pain, syncope. TECHNIQUE: Imaging Protocol: Axial computed tomography images with coronal and sagittal reformatted images were created and reviewed. COMPARISON: No exams were available for comparison FINDINGS: ABDOMEN: Lung Bases: Normal where visualized. There is a small hiatal hernia. Liver: Normal density. No measurable mass. Gallbladder and biliary tract: Status post cholecystectomy. No biliary ductal dilatation. Pancreas: Normal density, no abnormal calcifications or inflammatory process. Spleen: Normal. Kidneys: Normal size, contour and axis.No radiodense stones or obstructive uropathy. There is a stabl e left renal cyst. Adrenal glands: No mass is seen. Lymph nodes: Within normal limits. Abdominal Aorta: Abdominal portion non-dilated. Atherosclerosis. PELVIS: Bladder:Symmetric distention, no gross wall thickening. Bowel: There is no evidence of bowel obstruction. There is mild wall thickening seen in the ascendin g colon and proximal transverse colon. No evidence of appendicitis. There is a large amount of stoo l in the colon but no bowel wall thickening. Peritoneal cavity: No ascites, collection or mesenteric inflammatory response. No free air. Reproductive organs: Within normal limits. Bones: Within normal limits. Soft Tissues: Within normal limits. IMPRESSION: Possible are mild inflammatory infectious colitis involving the ascending and proximal transverse col ons. RADIATION DOSE DELIVERED: 845.42mGy.cm Total DLP DATA REPOSITORY: All CT scans at this facility are submitted to the National Radiology Data Registry (NRDR) Dose Index Registry (DIR) with the [employer] ([employer]). RADIATION OPTIMIZATION: All CT scans at this facility use at least one of these dose optimization te chniques: automated exposure control; mA and/or kV adjustment per patient size (includes targeted exa ms where dose is matched to clinical indication); or iterative reconstruction.
--- NOTE | 2021-12-27 20:22 | DI.RAD_ITS ---
Exam(s) XR CHEST 1V IN DI DEPT EXAM: XR CHEST 1V IN DI DEPT CLINICAL HISTORY: syncope TECHNIQUE: 2D digital imaging was performed of the chest. One image was obtained. An AP view was ob tained. COMPARISON: CR PORTABLE CHEST ONE VIEW from 05/05/2016 FINDINGS: MEDIASTINUM: Normal. The tracheal deviation appears stable compared to prior examinations particularl y examination from 05/05/2016. HEART: Normal. PULMONARY VASCULATURE: Normal. LUNGS: Clear. PLEURAL SPACE: No pleural effusion or pneumothorax. BONE:Within normal limits for the patient's age. OTHER FINDINGS:Normal. IMPRESSION: No acute pulmonary findings. DATA REPOSITORY: RADIATION DOSE DELIVERED:
--- NOTE | 2021-12-27 20:28 | W.ED.GENAD ---
Discharge Plan Disposition Patient Disposition: [facility] INPATIENT Condition: Stable Discharge Details Clinical Impression: AMS (altered mental status) Admit Date/Time: 12/27/21 23:36 Admit Provider: Nathan Isaac Attending Provider: Nathan Isaac Primary Care Provider: Allison Morgan ED Provider: Deya Chu Discharge Data Discharge Date/Time-TO BE ENTERED AT DEPARTURE: 12/28/21 04:03 Medical Decision Making Patient initially described a story of a syncopal event, however upon arrival of her he does report possible seizure-like activity without tonic-clonic activity which lasted approximately 1 minute She was confused per her after the event but was able to answer some questions Upon arrival in the emergency department she had fluid speech was cognitively intact with a nonfocal neurological exam, tired in appearance CT of her head does not show acute abnormality Chest x-ray did not show acute abnormality per radiology interpretation my review Diagnostic labs are within normal limits, very mild hypokalemia at 3.4, mag within normal limits Denies any illicit drug use and does not appear to be under the influence of any mood altering substances Denies any new medications or history of similar symptoms in the past I did order CT abdomen and pelvis that she did have some abdominal discomfort and her initial presentation concerning Think she benefit from overnight admission for observation given her alteration in mental status with subsequent resolution of symptoms and upon reassessment, she alert and oriented and is at her cognitive baseline per her , patient is conversant and appropriate with nonfocal neurological exam Dr. Isaac will admit patient for observation status at this time She was given a loading dose Keppra 500 mg IV She is full CODE STATUS, confirmed Medical Records Medical records reviewed: Yes I reviewed the patient's medical records. Lab Data Lab results reviewed: Yes I reviewed the patient's lab results. HPI General Date/Time Provider Initiated Documentation: 12/27/21 20:11. HPI Narrative: This 71-year-old female with history of COPD presents with report of syncope versus seizure with alteration mental status. Patient reportedly was watching TV when she experienced some nausea followed by a syncopal event or alteration in mental status. Has been states that she was unresponsive for approximately a minute. There is some tremulousness but denies obvious seizure-like activity. She was alert and oriented when she awoke. She denies any shortness of breath or chest pain prior to episode. She states she had an episode approximately 2 years ago but was not assessed at that time. She denies any known seizure history. She denies any any known injuries. She has no pain complaints at this time. She denies any specifically denies any chest pain or calf pain or swelling. Denies prior history of coagulopathy. Denies any falls or injuries. Feels weak and tired at this time. Related Data Home Medications Medication Instructions Recorded Confirmed albuterol sulfate 90 mcg/actuation 1 puff inhalation PRN PRN 12/10/12 12/28/21 aerosol inhaler (ProAir HFA) fluticasone 250 mcg-salmeterol 50 1 puff inhalation BID 02/04/17 12/28/21 mcg/dose blistr powdr for inhalation (Advair Diskus) esomeprazole magnesium 40 mg 1 cap PO BID 09/15/18 12/28/21 capsule,delayed release fluoxetine 20 mg tablet 1 tab PO DAILY 09/15/18 12/28/21 atorvastatin 20 mg tablet 20 mg PO DAILY 12/28/21 12/28/21 baclofen 10 mg tablet 10 mg PO BID 12/28/21 12/29/21 famotidine 40 mg tablet 40 mg PO BID 12/28/21 12/28/21 ropinirole 1 mg tablet 3 tab PO HS 12/29/21 12/29/21 solifenacin 5 mg tablet 2 tab PO DAILY 12/29/21 12/29/21 tolterodine 2 mg tablet 1 tab PO BID 12/29/21 12/29/21 Allergies Allergy/AdvReac Type Severity Reaction Status Date / Time codeine [Codeine] AdvReac Intermediate Nausea, Unverified 12/18/19 21:17 Vomiting General Stated Complaint: Seizure YULI: 2 Review of Systems All systems reviewed & are unremarkable except as noted in HPI and below PFSH All Active Problems (Updated 12/30/21 @ 00:03 by JUSTYN ANDERSON) Abnormal abdominal CT scan (Acute) Convulsive syncope (Acute) Depression (Chronic) Restless leg syndrome (Chronic) Seizure (Acute) Medical History (Updated 12/30/21 @ 00:03 by JUSTYN ANDERSON) Arthritis Asthma GERD (gastroesophageal reflux disease) Hyperlipidemia Osteopenia UTI (urinary tract infection) Surgical History Cholecystectomy Extraction of cataract eye surgery macular surgery and cataracts Social History Smoking/Tobacco Use Status: Never Smoking risk assessment performed?: Yes Alcohol Intake: never Drug use: Never Substance use type: does not use Do you feel safe at home: Yes Do you feel safe in your relationship?: Yes Exam Const General: cooperative and no acute distress HENMT Head: normal to inspection Other: Moist mucous membranes, no hemotympanum No evidence of intraoral trauma Eyes Pupils: PERRL Resp Effort & Inspection: normal respiratory effort Auscultation: clear to auscultation bilaterally Cardio Rate: regular rate Rhythm: regular rhythm Heart Sounds: no murmurs GI Inspection: normal to inspection Auscultation: normal bowel sounds Skin Other: Pallor Neuro General: patient alert, patient oriented x3 and CN's II-XI intact bilaterally Cranial Nerves: CN's II-XI intact bilaterally and tongue midline Cognition: normal cognition Speech: other (slowed speech) Motor: strength 5/5 throughout Sensory Exam: no sensory deficits noted Other: Negative pronator drift, negative [id number] Extrem General: normal to inspection Other: Distal pulses intact Course Vital Signs Vital signs: Vital Signs Temperature 36.8 C 12/27/21 20:08 Pulse 76 12/27/21 20:08 Respiratory Rate 16 12/27/21 20:08 Blood Pressure 124/58 L 12/27/21 20:08 Pulse Oximetry 97 12/27/21 20:08 Temperature 36.8 C 12/27/21 20:08 Temperature Source Oral 12/27/21 20:08 Pulse 76 12/27/21 20:08 Respiratory Rate 16 12/27/21 20:08 Respiratory Effort 12/27/21 20:16 Respiratory Depth Normal 12/27/21 20:16 Respiratory Pattern Normal 12/27/21 20:16 Blood Pressure 124/58 L 12/27/21 20:08 Blood Pressure Position Supine 12/27/21 20:08 Pulse Oximetry 97 12/27/21 20:08 Oxygen Delivery Method Room Air 12/27/21 20:08 Oxygen Flow Rate 0 12/27/21 20:08 Pain Level 0 12/27/21 20:08 PAWSS Have you Been Recently Intoxicated or Drunk Within the Last 30 days?: No Have you Ever Experienced Previous Episodes of Alcohol Withdrawal?: No Have you ever Experienced Withdrawal Seizures?: No Have you ever Experienced Delirium Tremens(DT)s?: No Have you ever undergone Alcohol Rehabilitation Treatment (i.e, inpt ot outpatient treatment programs)?: No Have you ever Experienced Blackouts?: No Have you ever Combined Alcohol with other Downers within the last 90 days?: No Have you ever Combined Alcohol with any other Substance of Abuse during the last 90 days?: No Positive Blood Alcohol level on Presentation? [PCS.BAL]: No Evidence of Increased Autonomic Activity (i.e. HR>120, tremor, sweating, agitation, nausea)?: No Result: 0
[2021-12-27 20:54] LABS: Abs Immature Grans 0.07 10^3/uL (0.0-0.06); Absolute Eosinophil Count 0.33 10^3/uL (0.0-0.7); Absolute Lymphocyte Count 2.57 10^3/uL (1.2-3.4); Absolute Monocyte Count 1.56 10^3/uL (0.1-0.8); Absolute Neutrophil Count 5.73 10^3/uL (1.2-6.7); Eosinophils % 3.2; HCT 38.9 % (36.0-46.0); HGB 13.4 g/dL (11.2-15.7); Immature Grans % 0.7; Lymphocytes % 24.8; MCH 30.5 pg (27.0-33.0); MCHC 34.4 % (32.0-36.0); MCV 88 fL (80-95); MPV 10.7 fL (8.0-11.0); Monocytes % 15.1; Neutrophils % 55.2; Platelet Count 271 10^3/uL (130-400); RDW 12.5 % (11.7-14.6); WBC 10.36 10^3/uL (4.4-10.8)
[2021-12-27 21:03] LABS: ALT 41 U/L (14-59); AST 22 U/L (15-37); Albumin 3.4 g/dL (3.4-5.0); Alkaline Phosphatase 80 U/L (46-116); Anion Gap 8.3 mmol/L (3-11); BUN 17 mg/dL (7-18); Bilirubin, Total 0.5 mg/dL (0.2-1.0); CO2 25.7 mmol/L (21.0-32.0); CREATININE 0.9 mg/dL (0.55-1.02); Calcium 8.6 mg/dL (8.5-10.1); Chloride 103 mmol/L (98-107); Glucose 122 mg/dL (74-106); Lipase 39 U/L (73-393); Potassium 3.4 mmol/L (3.5-5.1); Sodium 137 mmol/L (136-145); Total Protein 6.3 g/dL (6.4-8.2); Troponin I < 50 ng/L (<or=60)
[2021-12-27] MEDS: Lactated Ringers 1,000 ML 1000 ML IV (21:08)
[2021-12-27 21:20] LABS: Diff Comment Diff Reviewed; FREE T4 0.89 ng/dL (0.76-1.46); RBC Morphology Normal
[2021-12-27 21:29] LABS: Bilirubin Negative (Negative); Blood Negative (Negative); Clarity Clear (Clear); Glucose Negative (Negative); Ketones Negative (Negative); Leukocyte Esterase Negative (Negative); Nitrite Negative (Negative); Specific Gravity >= 1.030 (1.005-1.025); Urobilinogen 0.2 EU/dL (Up TO 0.2); pH 5.5 (5-8)
--- NOTE | 2021-12-27 22:32 | DI.VRAD_ITS ---
PROCEDURE INFORMATION: Exam: CT Head Without Contrast Exam date and time: 12/27/2021 9:51 PM Age: 71 years old Clinical indication: Syncope and collapse TECHNIQUE: Imaging protocol: Computed tomography of the head without contrast. Radiation optimization: All CT scans at this facility use at least one of these dose optimization techniques: automated exposure control; mA and/or kV adjustment per patient size (includes targeted exams where dose is matched to clinical indication); or iterative reconstruction. COMPARISON: CT HEAD AND CSPINE W/O CONTRAST 12/04/2015 9:34 PM FINDINGS: Brain: There is no significant cerebral atrophy present. There is no significant white matter disease present. There is no evidence of intracranial hemorrhage. There is no evidence of acute intracranial injury or other pathologic process. Cerebral ventricles: The ventricular system is normal in caliber and are seen in the midline. Paranasal sinuses: There is no evidence of fluid levels, mucoperiosteal thickening, or opacification to suggest acute or chronic sinusitis. Mastoid air cells: Sclerosis and soft tissue density seen within the mastoid air cells consistent with chronic or remote mastoiditis. No evidence of air-fluid levels to suggest acute mastoiditis. The mastoid aircells are normal. Orbital cavities: There is no evidence of retro-bulbar hemorrhage. There is no evidence of globe or lens injury. Bones/joints: The orbits are normal without evidence of fracture. The bony cranium shows no evidence of injury or other acute pathologic processes. Soft tissues: There is probable small scalp hematoma present on image 81 series 7 within the posterior parietal region. Other findings: There is no evidence of an acute ischemic event. No evidence of an acute intracranial abnormality. IMPRESSION: 1. There is probable small scalp hematoma present on image 81 series 7 within the posterior parietal region. 2. No evidence of an acute intracranial abnormality. Dictated and Authenticated by: Isaiah Su MD. Ordering:YOLANDA Flak MD
[2021-12-27 23:13] LABS: Magnesium 2.3 mg/dL (1.8-2.4)
--- NOTE | 2021-12-27 23:32 | HPE_ITS ---
Date of service: 12/27/21 Time of Service: 23:32 Assessment and Plan Assessment and plan (1) Seizure: Start date: 12/27/21 Status: Acute Assessment and plan: This is a 71-year-old lady who had a possible seizure at home and prolonged altered mental status after her event. She was wanting to get up to go the bathroom with a full bladder and this could have been a vasovagal event though she appears to have a prolonged episode of altered mental status. She appeared postictal to the ED physician. This cleared before coming to the medical surgical floor. Patient will have MRI and neurological consultation having been given a loading dose of Keppra with this to be determined whether she continues on treatment for possible seizure disorder. Hopefully EEG can be accomplished. She is at baseline presently. (2) Restless leg syndrome: Status: Chronic Assessment and plan: Continue outpatient medical therapy. (3) Depression: Status: Chronic Assessment and plan: Continue outpatient medical therapy. History of Present Illness History of Present Illness Chief Complaint: Possible seizure Narrative: This is a 71-year-old female patient who was brought to the emergency room after her witnessed a possible seizure-like activity at home which was not tonic-clonic but lasted for a minute with the patient confused after the event. She was sitting in her chair and had some symptoms of nausea and felt that that she needed to urinate. The ED physician reported that the patient did go to the bathroom but did not urinate and was found confused which lasted until she came to the ED when the patient was became more familiar with her surroundings. She does not have any incontinence of urine or stool. It is possible she was having vagal symptoms with a full bladder but she did not urinate or lose her bladder control. Because of her alteration mental status and possibility of seizure activity with imaging unrevealing other than some abnormal chest x-ray and CT of the abdomen findings that were not pertinent to her presentation, the patient was admitted after being loaded with Keppra 1000 mg IV. Hopefully the patient can be seen by neurology and MRI of the brain can be accomplished to further assess her episode. She has of history of head trauma recently. She appears to have no focal neurological complaints. Review of Systems Narrative: 13 point review of systems otherwise unrevealing or stable. Patient lives with her and is functioning well at home. [facility] All Active Problems (Updated 12/28/21 @ 20:32 by Nathan Isaac) Discharge planning issues (Acute) DVT prophylaxis (Acute) Convulsive syncope (Acute) Depression (Chronic) Restless leg syndrome (Chronic) Seizure (Acute) Medical History (Updated 12/28/21 @ 20:32 by Nathan Isaac) Arthritis Asthma GERD (gastroesophageal reflux disease) Hyperlipidemia Osteopenia UTI (urinary tract infection) Surgical History Cholecystectomy Extraction of cataract eye surgery macular surgery and cataracts Social History Smoking/Tobacco Use Status: Never Smoking risk assessment performed?: Yes Alcohol Intake: never Drug use: Never Substance use type: does not use Do you feel safe at home: Yes Do you feel safe in your relationship?: Yes Meds Allergies and Home Medications Allergies Allergy/AdvReac Type Severity Reaction Status Date / Time codeine [Codeine] AdvReac Intermediate Nausea, Unverified 12/18/19 21:17 Vomiting Home Medications Medication Instructions Recorded Confirmed Type albuterol sulfate 90 mcg/actuation 1 puff inhalation PRN PRN 12/10/12 12/28/21 History aerosol inhaler (ProAir HFA) ropinirole 0.5 mg tablet (Requip) 3 mg PO HS 09/18/13 12/28/21 History fluticasone 250 mcg-salmeterol 50 1 puff inhalation BID 02/04/17 12/28/21 History mcg/dose blistr powdr for inhalation (Advair Diskus) esomeprazole magnesium 40 mg 1 cap PO BID 09/15/18 12/28/21 History capsule,delayed release fluoxetine 20 mg tablet 1 tab PO DAILY 09/15/18 12/28/21 History cyclobenzaprine 5 mg tablet 5 mg PO TID PRN muscle spasm #10 12/18/19 12/28/21 Rx tabs atorvastatin 20 mg tablet 20 mg PO DAILY 12/28/21 12/28/21 History baclofen 10 mg tablet 10 mg 12/28/21 History famotidine 40 mg tablet 40 mg PO BID 12/28/21 12/28/21 History Exam Narrative Exam Narrative: General: Patient appears appropriate for age, alert and oriented to person, pl du and time. She is in no acute distress. She is lying in bed with the head at a 45 degree angle. HEENT: Normocephalic, eyes with pupils equal and reactive to light symmetrically, extraocular movement intact and sclera anicteric. Oropharynx with moist mucosa. Neck: Supple without JVD or bruits. Back: Kyphotic with no CVA tenderness. Lungs: Fair aeration with bronchovesicular breath sounds diffusely and no focalizing rales or rhonchi. No expiratory wheeze. Heart: Regular rate and rhythm with no appreciable murmur or gallop. Breast: Exam deferred. Abdomen: Scaphoid contour, soft and nontender to palpation with no palpable hepatosplenomegaly. No guarding or rebound. Bowel sounds positive in all quadrants. Genitalia/rectal: Exam deferred. Extremities: Without clubbing, cyanosis or pitting edema. Skin: Pale, warm and dry with no rashes. Fair turgor. Neuro: Cranial nerves II through XII grossly intact, no focalizing motor deficits and no tremor. Psych: Normal affect and mood, no abnormal thought processes manifested. Remote and recent memory appear to be grossly intact. Patient does not have recollection of her event or being in the bathroom. She remembers being in her chair and then in the ED. Results Imaging Imaging Studies: Exam: CT Head Without Contrast Exam date and time: 12/27/2021 9:51 PM Age: 71 years old Clinical indication: Syncope and collapse TECHNIQUE: Imaging protocol: Computed tomography of the head without contrast. Radiation optimization: All CT scans at this facility use at least one of these dose optimization techniques: automated exposure control; mA and/or kV adjustment per patient size (includes targeted exams where dose is matched to clinical indication); or iterative reconstruction. COMPARISON: CT HEAD AND CSPINE W/O CONTRAST 12/04/2015 9:34 PM FINDINGS: Brain: There is no significant cerebral atrophy present. There is no significant white matter disease present. There is no evidence of intracranial hemorrhage. There is no evidence of acute intracranial injury or other pathologic process. Cerebral ventricles: The ventricular system is normal in caliber and are seen in the midline. Paranasal sinuses: There is no evidence of fluid levels, mucoperiosteal thickening, or opacification to suggest acute or chronic sinusitis. Mastoid air cells: Sclerosis and soft tissue density seen within the mastoid air cells consistent with chronic or remote mastoiditis. No evidence of air-fluid levels to suggest acute mastoiditis. The mastoid aircells are normal. Orbital cavities: There is no evidence of retro-bulbar hemorrhage. There is no evidence of globe or lens injury. Bones/joints: The orbits are normal without evidence of fracture. The bony cranium shows no evidence of injury or other acute pathologic processes. Soft tissues: There is probable small scalp hematoma present on image 81 series 7 within the posterior parietal region. Other findings: There is no evidence of an acute ischemic event. No evidence of an acute intracranial abnormality. IMPRESSION: 1. There is probable small scalp hematoma present on image 81 series 7 within the posterior parietal region. 2. No evidence of an acute intracranial abnormality. Dictated and Authenticated by: Isaiah Su MD. Exam: CT Abdomen And Pelvis Without Contrast Exam date and time: 12/27/2021 9:53 PM Age: 71 years old Clinical indication: Other: Syncope; Abdominal pain; Generalized; Additional info: Syncope, abd pain TECHNIQUE: Imaging protocol: Computed tomography of the abdomen and pelvis without contrast. Radiation optimization: All CT scans at this facility use at least one of these dose optimization techniques: automated exposure control; mA and/or kV adjustment per patient size (includes targeted exams where dose is matched to clinical indication); or iterative reconstruction. COMPARISON: CT renal colic wo 01/06/2019 9:05 PM FINDINGS: Heart: Diminished attenuation of the cardiac chambers in comparison to the myocardium which can be seen with anemia. Correlate clinically. No coronary artery calcifications. Liver: There is diffuse decrease in hepatic parenchymal density, consistent with mild fatty infiltration. No mass. Gallbladder and bile ducts: The patient is status post cholecystectomy. No biliary ductal dilatation. Pancreas: Normal. No ductal dilation. Spleen: Normal. No splenomegaly. Adrenal glands: Normal. No mass. Kidneys and ureters: Simple 1.5 cm cyst in interpolar left kidney. No hydronephrosis. Stomach and bowel: Minimal gastric distension. No dilated loops of small bowel. Distal sigmoid and rectal portions of colon minimally distended with stool. Colon otherwise normal in caliber. At least minimal colonic wall thickening is demonstrated in distal ascending and proximal transverse portions and there is fat stranding about distal ascending colon. There is a large amount of stool in the colon. Appendix: No evidence of appendicitis. Intraperitoneal space: Unremarkable. No free air. No significant fluid collection. Vasculature: Unremarkable. No abdominal aortic aneurysm. Lymph nodes: Unremarkable. No enlarged lymph nodes. Urinary bladder: Unremarkable as visualized. Reproductive: Unremarkable as visualized. Bones/joints: The spine demonstrates mild degenerative changes at multiple levels. Soft tissues: Unremarkable. IMPRESSION: 1. Possible localized colitis involving ascending and transverse portions. 2. There is a large amount of stool in the colon. 3. Anemia suspected. Dictated and Authenticated by: Michael Silvestre MD. Exam: XR Chest Exam date and time: 12/27/2021 9:59 PM Age: 71 years old Clinical indication: Other: Syncope TECHNIQUE: Imaging protocol: Radiologic exam of the chest. Views: 1 view. COMPARISON: CR XR CHEST 2V PA LATERAL 09/15/2018 11:25 AM FINDINGS: Lungs: Tracheal deviation to the right at level of transverse aorta is more pronounced. No consolidation. Pleural spaces: Unremarkable. No pleural effusion. No pneumothorax. Heart/Mediastinum: Unremarkable. No cardiomegaly. Bones/joints: Degenerative changes. IMPRESSION: Tracheal deviation to the right is more pronounced in may be entirely due to uncoiling and dilatation of thoracic aorta. Other etiologies cannot be excluded contributing to the abnormality. Consider further evaluation with CT of the chest. Dictated and Authenticated by: Michael Silvestre MD. Labs Result diagrams: 12/28/21 06:28 12/28/21 06:28 Labs: Laboratory Results - last 24 hr 12/27/21 12/27/21 12/27/21 20:30 20:30 20:30 WBC 10.36 RBC 4.40 Hgb 13.4 Hct 38.9 MCV 88 MCH 30.5 MCHC 34.4 RDW 12.5 Plt Count 271 MPV 10.7 Immature Gran % 0.7 Neutrophils % 55.2 Lymphocytes % 24.8 Monocytes % 15.1 Eosinophils % 3.2 Basophils % 1.0 Nucleated RBC % 0.0 Absolute Neutrophils 5.73 Absolute Lymphocytes 2.57 Absolute Monocytes 1.56 H Absolute Eosinophils 0.33 Absolute Basophils 0.10 RBC Morphology Normal Sodium 137 Potassium 3.4 L Chloride 103 Carbon Dioxide 25.7 Anion Gap 8.3 BUN 17 Creatinine 0.9 Estimated GFR/1.73 m2 >= 60.00 Glucose 122 H Calcium 8.6 Magnesium 2.3 Total Bilirubin 0.5 AST 22 ALT 41 Alkaline Phosphatase 80 Troponin I < 50 Total Protein 6.3 L Albumin 3.4 Lipase 39 TSH 6.10 H Free T4 0.89 Urine Color Urine Clarity Urine pH Ur Specific [place] Urine Protein Urine Ketones Urine Blood Urine Nitrite Urine Bilirubin Urine Urobilinogen Ur Leukocyte Esterase Urine Glucose 12/27/21 21:20 WBC RBC Hgb Hct MCV MCH MCHC RDW Plt Count MPV Immature Gran % Neutrophils % Lymphocytes % Monocytes % Eosinophils % Basophils % Nucleated RBC % Absolute Neutrophils Absolute Lymphocytes Absolute Monocytes Absolute Eosinophils Absolute Basophils RBC Morphology Sodium Potassium Chloride Carbon Dioxide Anion Gap BUN Creatinine Estimated GFR/1.73 m2 Glucose Calcium Magnesium Total Bilirubin AST ALT Alkaline Phosphatase Troponin I Total Protein Albumin Lipase TSH Free T4 Urine Color Yellow Urine Clarity Clear Urine pH 5.5 Ur Specific [place] >= 1.030 H Urine Protein Negative Urine Ketones Negative Urine Blood Negative Urine Nitrite Negative Urine Bilirubin Negative Urine Urobilinogen 0.2 Ur Leukocyte Esterase Negative Urine Glucose Negative Last Vital Signs Temp 36.8 C 12/27/21 20:08 Pulse 57 L 12/27/21 23:22 Resp 17 12/27/21 23:22 BP 119/69 12/27/21 23:22 Pulse Ox 98 12/27/21 23:22 PAWSS Have you Been Recently Intoxicated or Drunk Within the Last 30 days?: No Have you Ever Experienced Previous Episodes of Alcohol Withdrawal?: No Have you ever Experienced Withdrawal Seizures?: No Have you ever Experienced Delirium Tremens(DT)s?: No Have you ever undergone Alcohol Rehabilitation Treatment (i.e, inpt ot ou tpatient treatment programs)?: No Have you ever Experienced Blackouts?: No Have you ever Combined Alcohol with other Downers within the last 90 days?: No Have you ever Combined Alcohol with any other Substance of Abuse during the last 90 days?: No Positive Blood Alcohol level on Presentation? [PCS.BAL]: No Evidence of Increased Autonomic Activity (i.e. HR>120, tremor, sweating, agitation, nausea)?: No Result: 0
--- NOTE | 2021-12-27 23:43 | DI.VRAD_ITS ---
PROCEDURE INFORMATION: Exam: CT Abdomen And Pelvis Without Contrast Exam date and time: 12/27/2021 9:53 PM Age: 71 years old Clinical indication: Other: Syncope; Abdominal pain; Generalized; Additional info: Syncope, abd pain TECHNIQUE: Imaging protocol: Computed tomography of the abdomen and pelvis without contrast. Radiation optimization: All CT scans at this facility use at least one of these dose optimization techniques: automated exposure control; mA and/or kV adjustment per patient size (includes targeted exams where dose is matched to clinical indication); or iterative reconstruction. COMPARISON: CT renal colic wo 01/06/2019 9:05 PM FINDINGS: Heart: Diminished attenuation of the cardiac chambers in comparison to the myocardium which can be seen with anemia. Correlate clinically. No coronary artery calcifications. Liver: There is diffuse decrease in hepatic parenchymal density, consistent with mild fatty infiltration. No mass. Gallbladder and bile ducts: The patient is status post cholecystectomy. No biliary ductal dilatation. Pancreas: Normal. No ductal dilation. Spleen: Normal. No splenomegaly. Adrenal glands: Normal. No mass. Kidneys and ureters: Simple 1.5 cm cyst in interpolar left kidney. No hydronephrosis. Stomach and bowel: Minimal gastric distension. No dilated loops of small bowel. Distal sigmoid and rectal portions of colon minimally distended with stool. Colon otherwise normal in caliber. At least minimal colonic wall thickening is demonstrated in distal ascending and proximal transverse portions and there is fat stranding about distal ascending colon. There is a large amount of stool in the colon. Appendix: No evidence of appendicitis. Intraperitoneal space: Unremarkable. No free air. No significant fluid collection. Vasculature: Unremarkable. No abdominal aortic aneurysm. Lymph nodes: Unremarkable. No enlarged lymph nodes. Urinary bladder: Unremarkable as visualized. Reproductive: Unremarkable as visualized. Bones/joints: The spine demonstrates mild degenerative changes at multiple levels. Soft tissues: Unremarkable. IMPRESSION: 1. Possible localized colitis involving ascending and transverse portions. 2. There is a large amount of stool in the colon. 3. Anemia suspected. Dictated and Authenticated by: Michael Silvestre MD. Ordering:YOLANDA Falk MD
--- NOTE | 2021-12-27 23:45 | DI.VRAD_ITS ---
PROCEDURE INFORMATION: Exam: XR Chest Exam date and time: 12/27/2021 9:59 PM Age: 71 years old Clinical indication: Other: Syncope TECHNIQUE: Imaging protocol: Radiologic exam of the chest. Views: 1 view. COMPARISON: CR XR CHEST 2V PA LATERAL 09/15/2018 11:25 AM FINDINGS: Lungs: Tracheal deviation to the right at level of transverse aorta is more pronounced. No consolidation. Pleural spaces: Unremarkable. No pleural effusion. No pneumothorax. Heart/Mediastinum: Unremarkable. No cardiomegaly. Bones/joints: Degenerative changes. IMPRESSION: Tracheal deviation to the right is more pronounced in may be entirely due to uncoiling and dilatation of thoracic aorta. Other etiologies cannot be excluded contributing to the abnormality. Consider further evaluation with CT of the chest. Dictated and Authenticated by: Michael Silvestre MD. Ordering:YOLANDA Falk MD
[2021-12-27 23:52] LABS: Source Nasal/Nares
[2021-12-28] VITALS (8 sets, daily range): BP systolic 102–119; BP diastolic 65–76; PULSE 54–71; RESP 12–16; TEMP 35.6–37.3; O2SAT 96–97
--- NOTE | 2021-12-28 | DI.MRI_ITS ---
Exam(s) MR BRAIN WO/W EXAM: MR BRAIN WO/W CLINICAL HISTORY: ?seizure TECHNIQUE: Multiplanar multisequence MRI of the brain was performed. CONTRAST MATERIAL: IV Contrast: 12 mL of Dotarem contrast administered. COMPARISON: CT CT HEAD WO from 12/27/2021 FINDINGS: VENTRICLES AND EXTRA AXIAL SPACES: Normal in size and morphology for the patient's age. HEMORRHAGE: None. CEREBRAL PARENCHYMA: No focus of restricted diffusion to suggest acute infarct. No space-occupying le pato identified. There are few foci of hyperintense signal in the white matter likely reflecting smal l vessel ischemic disease. MIDLINE SHIFT: None. BRAINSTEM/CEREBELLUM: Normal. CALVARIUM: Normal. ENHANCEMENT: No suspicious enhancement identified. VISUALIZED PARANASAL SINUSES/MASTOIDS: Clear. [employer] [place]: Normal flow void. PITUITARY GLAND: Unremarkable. OTHER FINDINGS: IMPRESSION: 1. No evidence of an intracranial mass, enhancing lesion or acute infarct. 2. A few foci of hyperintense signal seen in the white matter likely reflecting small vessel ischemic disease. DATA REPOSITORY:
--- NOTE | 2021-12-28 00:02 | ED.PROG_ITS ---
Date of service: 12/28/21 Time of Service: 00:[address] abd/pelvis and xray of the chest reports returned after provider left, ct abd/pelvis shows possible colitis and xray shows right tracheal deviation. She denies dyspnea, chest pain or abdominal pain now or diarrhea. Discussed with hospitalist who is going to hold on further imaging at this point until day radiologist reads images. Discharge Plan Disposition Patient Disposition: [facility] INPATIENT Discharge Details Clinical Impression: AMS (altered mental status) Primary Care Provider: Allison Morgan ED Provider: Deya Chu Home Meds and New Rx's Prescriptions: No Action albuterol sulfate [ProAir HFA] 200 PUFF HFA aerosol inhaler 1 puff Inhalation PRN PRN ropinirole [Requip] 0.5 MG tablet 3 mg PO HS ibandronate [Boniva] 150 MG tablet 1 cap PO DIRECTED Label Comments: MONTHLY fluticasone propion-salmeterol [Advair Diskus] 1 EACH blister with device 1 puff Inhalation BID ranitidine HCl [Zantac] 150 MG tablet 150 mg PO BID ferrous sulfate 325 mg (65 mg iron) Tablet 1 tab PO DAILY fluoxetine 20 mg Tablet 1 tab PO DAILY esomeprazole magnesium 40 mg Capsule,Delayed Release(Dr/Ec) 1 cap PO BID oxybutynin chloride 5 mg Tablet Extended Release 24hr 1 tab PO DAILY cyclobenzaprine 5 mg tablet 5 mg PO TID PRN (Reason: muscle spasm) Qty: 10 0RF
[2021-12-28 00:10] LABS: Troponin I < 50 ng/L (<or=60)
[2021-12-28 00:42] LABS: COVID-19 PCR Negative (Negative)
[2021-12-28] MEDS: levETIRAcetam 500 MG in Normal Saline 100 ML 400 MG IVPB (03:28)
--- OUTSIDE RECORDS SUMMARY | 2021-12-28 04:07 | XMS_ITS | Encounter Summary ---
:1950 Author Organization [facility] Address 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 [address] [facility] [place] [place] [address] [place] [address] Referral ID Status Reason Start Date Expiration Date Visits V isits Requested Authorized [id number] Closed Evaluate and 01/03/2021 07/02/2021 10 10 Treat Reason for Visit Reason Comments Back Pain x 2 weeks, left lower back Encounter Details Date Type Department Care Team Description 01/03/2021 Office Visit Internal Medicine at [facility] trochanter[address] Azael Link MD pain syndrome of left [address] [facility] [place] [address] GENERAL INTERNAL [phone] [place] [id number] Social History Tobacco Use Types Packs/Day Years Used Date Never Smoker Smokeless Tobacco: Never Used Alcohol Use Standard Drinks/Week Comments Yes 0 (1 standard drink = 0.6 oz pure alcoho l) wine 2 times a month Alcohol Habits Answer Date Recorded How often do you have a drink containing alcohol? Not asked How many drinks containing alcohol do you have on Not asked a typical day when you are drinking? How often do you have six or more drinks on one Not asked occasion? Comment: wine 2 times a month 10/13/2020 Sex Assigned at Date Recorded Not on file documented as of this encounter Last Filed Vital Signs Vital Sign Reading Time Taken Comments Blood Pressure 116/67 01/03/2021 1:17 PM EDT Pulse 80 01/03/2021 1:17 PM EDT Temperature - - Respiratory Rate 14 01/03/2021 1:17 PM EDT Oxygen Saturation 99% 01/03/2021 1:17 PM EDT Inhaled Oxygen Concentration - - Weight 58.1 kg (128 lb) 01/03/2021 1:17 PM EDT Height 154.9 cm (5' 0.98) 01/03/2021 1:17 PM EDT repor reta Body Mass Index 24.2 01/03/2021 1:17 PM EDT documented in this encounter Patient Instructions Patient InstructionsAzael Beard MD - 01/03/2021 1:30 PM EDT Images from the original note were not included. Please work with physical therapy to address your symptoms, and the exercises below may be helpful as well. Please let us know if your pain is not improving within 1-2 weeks. Patient Education Trochanteric Bursitis: Exercises Introduction Here are some examples of exercises for you to try. The exercises may be suggested for a condition or for rehabilitation. Start each exercise slowly. Ease off the exercises if you start to have pain. You will be told when to start these exercises and which ones will work best for you. How to do the exercises Hamstring wall stretch 1. Lie on your back in a doorway, with your good leg through the open door. 2. Slide your affected leg up the wall to straighten your knee. You should feel a gentle stretch down the back of your leg. 3. Hold the stretch for at least 1 minute to begin. Then try to lengthen the time you hold the stretch to as long as 6 minutes. 4. Repeat 2 to 4 times. 5. If you do not have a place to do this exercise in a doorway, there is another way to do it: 6. Lie on your back, and bend the knee of your affected leg. 7. Loop a towel under the ball and toes of that foot, and hold the ends of the towel in your hands. 8. Straighten your knee, and slowly pull back on the towel. You should feel a gentle stretch down the back of your leg. 9. Hold the stretch for 15 to 30 seconds. Or even better, hold the stretch for 1 minute if you can. 10. Repeat 2 to 4 times. 1. Do not arch your back. 2. Do not bend either knee. 3. Keep one heel touching the floor and the other heel touching the wall. Do not point your toes. Straight-leg raises to the outside 1. Lie on your side, with your affected leg on top. 2. Tighten the front thigh muscles of your top leg to keep your knee straight. 3. Keep your hip and your leg straight in line with the rest of your body, and keep your knee pointing forward. Do not drop your hip back. 4. Lift your top leg straight up toward the ceiling, about 12 inches off the floor. Hold for about 6seconds, then slowly lower your leg. 5. Repeat 8 to 12 times. Clamshell 1. Lie on your side, with your affected leg on top and your head propped on a pillow. Keep your feetand knees together and your knees bent. 2. Raise your top knee, but keep your feet together. Do not let your hips roll back. Your legs should open up like a clamshell. 3. Hold for 6 seconds. 4. Slowly lower your knee back down. Rest for 10 seconds. 5. Repeat 8 to 12 times. Standing quadriceps stretch 1. If you are not steady on your feet, hold on to a chair, counter, or wall. You can also lie on your stomach or your side to do this exercise. 2. Bend the knee of the leg you want to stretch, and reach behind you to grab the front of your footor ankle with the hand on the same side. For example, if you are stretching your right leg, use yourright hand. 3. Keeping your knees next to each other, pull your foot toward your buttock until you feel a gentlestretch across the front of your hip and down the front of your thigh. Your knee should be pointed directly to the ground, and not out to the side. 4. Hold the stretch for 15 to 30 seconds. 5. Repeat 2 to 4 times. Piriformis stretch 1. Lie on your back with your legs straight. 2. Lift your affected leg and bend your knee. With your opposite hand, reach across your body, and then gently pull your knee toward your opposite shoulder. 3. Hold the stretch for 15 to 30 seconds. 4. Repeat 2 to 4 times. Double [id number] 1. Lie on your back with your knees bent and your feet flat on the floor. You can put a small pillowunder your head and neck if it is more comfortable. 2. Bring both knees to your chest. 3. Keep your lower back pressed to the floor. Hold for 15 to 30 seconds. 4. Relax, and lower your knees to the starting position. 5. Repeat 2 to 4 times. Follow-up care is a camacho part of your treatment and safety. Be sure to make and go to all appointments, and call your doctor if you are having problems. It's also a good idea to know your test results and keep a list of the medicines you take. Where can you learn more? Visit our Mobile[employer] information library at [email or web address] You can also view health information on [employer], your personal patient account. Log in or sign up today. Enter N503 in the search box to learn more about Trochanteric Bursitis: Exercises. Current as of: May 22, 2020?Content Version: 12.9 ?? [id number] [employer]. Care instructions adapted under license by [facility]. If you have questions about a medical condition or this instruction, always ask your healthcare professional. [employer] disclaims any warranty or liability for your use of this information. documented in this encounter Progress Notes Lorri Moran MD - 01/03/2021 1:30 PM EDT I have seen the patient in person and reviewed the resident's above history and I agree with the details as written. The assessment and plan were formulated in discussion with me and I agree with them as documented. Pertinent History: Pt is a 70 yo female who presents with lateral hip pain which has been progressively getting worse. 4/10 at rest, but can increase to 10/10. Greatest with pressure (lying on that side at night), changing from sitting to standing position. No change with activity. No improvement withibuprofen. No radiation. No f/c/sweats, + fatigue. Similar issue in the past and received an injection. Pertinent Exam: 116/67 80, No spinal tenderness. Tender in an area extending from lateral pelvic brim inferiorly to and including the greater trochanter with the greatest area of pain just below the pelvic brim. There is full ROM at hip with minimal pain with abduction and adduction across body. Strength is intact. Major issues addressed: L Lateral hip pain c/w trochanteric pain syndrome extending beyond the bursaitself. We considered injection, but given pain superior to bursa decided to focus on PT. If no improvement consider XRAY to r/o bony abnormality or injection. Azael Beard MD - 01/03/2021 1:30 PM EDT Images from the original note were not included. Subjective: Patient ID: Elida Montez is a 70 y.o. female. HPI Chief Complaint Patient presents with ??? Back Pain x 2 weeks, left lower back Mrs. Montez is a 70yo F h/o neck pain, lumbar radiculopathy and incidental renal mass, presenting with 2 weeks of left lateral hip pain localized superior to the greater trochanter. Pain was initiallymild, and thought maybe she strained it, but it has progressed to be more severe so she is here hoping for some pain relief. Pain is like a tear. She denies radiation, denies numbness/tingling/weakness in LLE. Relieved withrest, aggravated with sitting for a while, getting up from sitting position, as well as bending overat the hip, and can be up to 10/10 pain. 4/10 pain while sitting at rest. Not relieved by ibuprofen or tylenol. She reports being more fatigued lately but denies fevers, chills, weight loss. Cant lay on that side without severe pain, wakes her up at night when she puts pressure on that side. She reports she has a history of similar pain on lateral hip that was relieved with steroid injection. Also reports history of shoulder bursitis. 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 She denies other concerns at this time. Objective: BP 116/67 (BP Location (NBP): Left arm, Patient Position: Sitting, BP Cuff Sizes: Adult (25-34 cm)) Pulse 80 Resp 14 Ht 154.9 cm (5' 0.98) Comment: reported Wt 58.1 kg (128 lb) SpO2 99% BMI 24.20 kg/m?? Patient reported measures: Pain: Physical Health: Fall: PHQ-9 QUESTIONNAIRE SCORE ONLY (AMB) 11/03/2017 PHQ - 9 Score (Clinic) 3 (Minimal Depression) Some recent data might be hidden Wt Readings from Last 3 Encounters: 01/03/21 58.1 kg (128 lb) 11/23/20 56.2 kg (124 lb) 10/13/20 56.2 kg (124 lb) Physical Exam Constitutional: Appearance: Normal appearance. HENT: Head: Normocephalic and atraumatic. Musculoskeletal: Left hip: Tenderness present. No deformity, lacerations or crepitus. Normal range of motion. Normalstrength. Legs: Comments: Strength symmetrical. Pain reproduced on DAVIE Negative straight leg raise Neurological: General: No focal deficit present. Mental Status: She is alert and oriented to person, place, and time. Psychiatric: Mood and Affect: Mood normal. Behavior: Behavior normal. Judgment: Judgment normal. Assessment and Plan: Mrs. Montez is a 70yo F h/o radiculopathy who presents with acute left lateral hip pain consistent with greater trochanteric pain syndrome. No preceding trauma, no red flag symptoms, no radiation of her pain. Reviewed prior repeat imaging of kidney mass showing no growth over 2 years so unlikely to represent mets. #Greater trochanteric pain syndrome -PT referral sent to [place] -Provided pt handout on exercises for GTPS and advised to avoid activities that aggravate pain -Considered steroid injection, though her pain is not localized to the bursa, so benefit unclear -She will let us know if she does not improve over the next 1-2 weeks, at which point we could consider imaging and/or steroid injection. documented in this encounter Plan of Treatment Scheduled Referrals Name Type Priority Associated Diagnoses Order S chedule Referral to Outpatient Referral Routine Greater trochanteric Ordered: Physical Therapy pain syndrome of left lower extremity documented as of this encounter Visit Diagnoses Diagnosis Greater trochanteric pain syndrome of le ft lower extremity documented in this encounter Care Teams Last Turner Relationship Specialty Start Date End Date Allison Granados APRN PCP - General 04/22/14 06/27/[address] [facility] [address] [place] [address] documented as of this encounter
--- OUTSIDE RECORDS SUMMARY | 2021-12-28 04:07 | XMS_ITS | Encounter Summary ---
:1950 Author Organization [facility] [place] [address] Care Team Providers Name Role Phone Allison Granados APRN Primary Care Provider [phone] Reason for Visit Reason Onset Date Comments Medication Refill 12/28/2020 Encounter Details Date Type Department Care Team Description 12/28/2020 Refill Internal Medicine at [place] Allison Murphy, [facility] DR Gutierrez [facility] [place] [address] RD [phone] [place], [place] [address] (Wo rk) Social History Tobacco Use Types Packs/Day Years [...] on file documented as of this encounter Plan of Treatment Not on filedocumented as of this encounter Visit Diagnoses Not on filedocumented in this encounter Care Teams Cdl A Driver Relationship Specialty Start Date End Date Allison Granados APRN PCP - General 04/22/14 06/27/[address] [facility] [place] [address] documented as of this encounter
--- OUTSIDE RECORDS SUMMARY | 2021-12-28 04:07 | XMS_ITS | Clinical Summary ---
:1950 Author Organization [facility] [place] [address] Care Team Providers Name Role Phone Kerwin Pineda Primary Care Provider Allergies Active Allergy Reactions Severity Noted Date Comments Codeine Nausea And Vomiting 03/04/2014 Unclassified Drug 09/04/2018 Seasonal Medications Medication Sig Dispensed Refills Start Date End Date Status hyoscyamine (LEVSIN) Take 1 tablet by 30 tablet 5 03/06/2018 Active 0.125 mg mouth every 6 TabletIndications: LLQ hours as needed abdominal pain for Cramping. albuteroL (Ventolin Inhale 2 puffs 1 Inhaler 3 10/26/2020 Active HFA) 90 mcg/actuation into the lungs HFA Aerosol Inhaler every 6 hours as needed for Wheezing. Use with spacer atorvastatin (Lipitor) Take 1 tablet by 90 tablet 3 11/23/2020 Active 20 mg Tablet mouth daily. fluticasone propionate 1 spray by Each 16 g 12 12/28/2020 Active (FLONASE) 50 Nare route mcg/actuation [place], daily. Suspension UNABLE TO FIND Take 1 capsule by mouth daily. Neuriva Plus 0 Active Probiotic powder ascorbic acid, vitamin Take 500 mg by 0 Active C, (VITAMIN C) 500 mg mouth daily. Tablet, Chewable famotidine (Pepcid) 40 Take 1 tablet by 180 tablet 3 1 Active mg Tablet mouth 2 times daily. fluticasone Inhale 1 puff 1 each 12 06/13/2021 Act noel propion-salmeteroL into the lungs (ADVAIR) 500-50 every 12 hours. mcg/dose Disk with DeviceIndications: Mild intermittent asthma, unspecified whether complicated baclofen (Lioresal) 10 Take 1 tablet by 180 tablet 3 2 Active mg Tablet mouth 2 times daily. esomeprazole (NexIUM) Take 1 capsule 180 capsule 3 08/03/2021 Active 40 mg Capsule, Delayed by mouth 2 times Release(E.C.) daily. cyclobenzaprine Take 1 tablet by 14 tablet 0 09/13/2021 Active (Flexeril) 10 mg mouth nightly as TabletIndications: needed for Acute right-sided low Muscle spasms. back pain without sciatica solifenacin (VESICARE) Take 2 tablets 180 tablet 3 09/19/2021 Active 5 mg by mouth daily. TabletIndications: Urinary frequency tolterodine (DETROL) 2 Take 1 tablet by 180 tablet 3 2 Active mg Tablet mouth 2 times daily. rOPINIRole (Requip) 1 Take 3 tablets 270 tablet 3 10/26/2021 Active mg Tablet by mouth nightly. FLUoxetine (PROzac) 20 Take 1 tablet by 90 tablet 3 10/26/2021 Active mg Tablet mouth daily. Active Problems Problem Noted Date Shabana infection, esophageal 03/25/2019 Hiatal hernia 03/25/2019 Gastroesophageal reflux 08/26/2016 Elevated TSH 08/15/2016 Overview: - possible Hashimotto's, recommended at least yearly TSH checks. IBS (irritable bowel syndrome) 11/03/2015 Urinary frequency 11/03/2015 Restless leg syndrome 01/24/2015 Overview: - doing well on requip. Iron stores were low, will replace Low ferritin level 01/24/2015 Age-related osteoporosis without current pathological fracture 10/05/2014 Pain in limb (LEG) 07/14/2014 Overview: Bilateral radiates UP from soles to back Asthma 05/03/2014 Health care maintenance 05/03/2014 Overview: Pap- last done 08/03/10 Colonoscopy- done 12/29/08 Mammogram- 11/12/12 Tdap- 09/16/08 Pneumovax- 08/12/2006, 09/15/13 Prevnar- 10/05/14 Neck pain 04/21/2014 Renal mass 03/23/2014 Radiculopathy of lumbar region 03/04/2014 Encounters Date Type Specialty Care Team Description 10/26/2021 Refill Internal Medicine Nathan Peguero MD from Last 3 Months Immunizations Name Administration Dates Next Due Influenza PF, Split (High Dose) 05/14/2021, 04/04/2016, 04/07 Influenza Vaccine PF, Quadrivalent 04/25/2017, 04/06/2012 Influenza Vaccine, Quadrivalent, 04/13/2020 Adjuvanted Influenza, Trivalent, Adjuvanted 05/27/2019, 05/18/2018 Moderna Covid-19 (Provider Network Mgr) Vaccine 100mcg 06/08/2021, 2020, 08/31/2020 Pneumococcal Conjugate (13 Valent) 10/05/2014 Pneumococcal Polyvalent 23 09/15/2013 Td Vaccine, Absorbed, PF, Adult 10/09/2018 Tdap Vaccine 09/16/2008 Zoster Vaccine, Live 10/05/2012 Family History Medical History Relation Comments Hypertension Brother Coronary Artery Disease Father age 67 Cancer Maternal Aunt 1 Cancer Maternal Aunt 2 Esophageal Cancer Maternal Grandfather Coronary Artery Disease Maternal Grandmother Asthma Mother Cerebrovascular Accident Mother Coronary Artery Disease Mother Gallbladder Disease Mother Hyperlipidemia Mother Lung Cancer Paternal Uncle Other Sister myasthenia gravis Type 2 Diabetes Neg Hx Relation Status Comments Brother Father Maternal Aunt 1 Maternal Aunt 2 Maternal Grandfather Maternal Grandmother Mother Paternal Uncle Sister Social History Tobacco Use Types Packs/Day Years [...] Assigned at Date Recorded Not on file Last Filed Vital Signs Vital Sign Reading Time Taken Comments Blood Pressure 115/66 09/13/2021 10:31 AM EST Pulse 61 09/13/2021 10:31 AM EST Temperature 37 ??C (98.6 ??F) 06/13/2021 8:58 AM EST Respiratory Rate 14 01/03/2021 1:17 PM EDT Oxygen Saturation 100% 09/13/2021 10:31 AM EST Inhaled Oxygen Concentration - - Weight 60.8 kg (134 lb) 09/13/2021 10:31 AM EST Height 153.3 cm (5' 0.35) 09/13/2021 10:31 AM EST repo rted Body Mass Index 25.86 09/13/2021 10:31 AM EST Plan of Treatment Health Maintenance Due Date Last Done Comments Zoster vaccine (2 of 3) 11/30/2012 10/05/2012 Covid-19 Vaccine (4 - Booster for 10/07/2021 06/08/2021, , Moderna series) 08/31/2020 Breast Cancer screening 03/02/2023 03/02/2021, 04/25/2017, 03/06/2015, Additional history exists Colonoscopy 07/31/2028 07/31/2018, 07/31/2018, 12/29/2008 (Report in [facility]) Tetanus vaccine 10/09/2028 10/09/2018, 09/16/2008 Tdap adult Completed 09/16/2008 Pneumoccocal Vaccine: 65+ Completed 10/05/2014, 09/15/2013 Hepatitis C Screening Completed 11/24/2014 Bone Density Scan Completed 05/25/2018, 10/06/2014 Influenza (Flu) vaccine Completed 05/14/2021, 04/13/2020, 05/27/2019, Additional history exists Insurance Payer Benefit Plan / Subscriber ID Effective Phone Address T ype Group Dates MEDICARE MEDICARE PART A [id number] 2013-Prese [phone] [facility] [id number] AETNA MEDICARE AETNA MEDICARE [id number] 2014-Pres [address] [address] [place] [address] Advance Directives Documents on File Type Date Recorded Patient Group Home Supervisor Explanati on Advance Directives and 08/15/2020 9:01 AM ADVANCED DIRECTIVE Living Will Care Teams Exchange Specialist Relationship Specialty Start Date End Date Kerwin Pineda PA PCP - General Internal Medicine 06/28/21 [facility] [place] [address]
--- OUTSIDE RECORDS SUMMARY | 2021-12-28 04:07 | XMS_ITS | Encounter Summary ---
:1950 Author Organization [facility] Address [address] [place] [address] Care Team Providers Name Role Phone RobertaAllison shannon Koffi CM Primary Care Provider [phone] Reason for Visit Reason Comments Follow-up Stomach problems - ongoing Other Red and painful line along l ower abdomen Encounter Details Date Type Department Care Team Description 11/23/2020 Office Visit Internal Medicine at [facility] [place]; [facility] W, SOILA Elevated cholesterol [address] [place] [address] GENERAL INTERNAL [phone] [place], [place] [address] (Wo rk) Social History Tobacco [...] Sign Reading Time Taken Comments Blood Pressure 113/57 11/23/2020 1:45 PM EDT Pulse 62 11/23/2020 1:45 PM EDT Temperature 36.8 ??C (98.2 ??F) 11/23/2020 1:45 PM EDT Respiratory Rate - - Oxygen Saturation 99% 11/23/2020 1:45 PM EDT Inhaled Oxygen - - Concentration Weight 56.2 kg (124 lb) 11/23/2020 1:45 PM EDT Height 154.9 cm (5' 1) 11/23/2020 1:45 PM Approx - pat ient EDT reported Body Mass Index 23.43 11/23/2020 1:45 PM EDT documented in this encounter Progress Notes Any Julienne M - 11/23/2020 2:00 PM EDT Images from the original note were not included. PCP: Allison Granados APRN Chief Complaint Patient presents with ??? Follow-up Stomach problems - ongoing ??? Other Red and painful line along lower abdomen SUBJECTIVE: Elida Montez is a 70 y.o. female who presents for follow up on GERD and an abdominal skin concern. She has a past medical history of asthma, GERD, osteoporosis, restless leg syndrome, elevated TSH, and hiatal hernia. 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 GERD: She has been taking esomeprazole 40 mg BID and famotidine 40 mg BID for GERD and does not feelshe has had improvement in her symptoms. She is vomiting small amounts of food a few times per week and is having indigestion every day. She is a creature of habit and tends to eat the same foods anddrinks and is unable to identify triggers. She has not been able to see GI yet because the provider only sees patients one morning per week and she cannot find someone to fill in for her at work. Asthma: She feels her asthma is well-controlled since she started Advair BID for prevention. She uses her albuterol rescue inhaler PRN for acute symptoms, having to use it 2-3 days per week. She rarelyneeds to use the albuterol more than one time in one day. She has rare SOB with exertion. Triggers are freshly cut grass, smoke, pollen. Colitis: She has been having diarrhea/constipation with colitis recently. Metamucil is usually beneficial for her and she just restarted this regimen and believes she will feel better soon. : She has been having urge incontinence and oxybutynin was decreased at her last visit to 2 mg daily. She does not feel the decreased dose has changed her symptoms. She was also having dry mouth, which is also not improved on the lower dose. Skin: She is concerned about a painful skin irritation on her lower abdomen that is painful to the touch. This started three days ago and she has been putting Vaseline on it but that has not helped. Depression: she is stable on fluoxetine 20 mg, which was added after her mother and she was having situational depression. She states she was struggling with strong reactions to her family and this has subsided. Her son was in a motorcycle accident in [place] and she recently travelled tosee him as he was hospitalized due to injuries from the accident. She received both COVID vaccines and did not have s/e Cholesterol: Recent lipid panel shows elevated total cholesterol and LDL cholesterol. The 10-year ASCVD risk score (Og PATTI Jr., et al., 2013) is: 9.9% Values used to calculate the score: Age: 70 years Sex: Female Is Non- : No Diabetic: No Tobacco smoker: No Systolic Blood Pressure: 113 mmHg Is BP treated: No HDL Cholesterol: 47 mg/dL Total Cholesterol: 249 mg/dL Review of Systems Constitutional: Negative. Negative for activity change, fatigue and unexpected weight change. HENT: Positive for postnasal drip and trouble swallowing. Negative for sore throat and voice change.Dental problem: has dentures. Eyes: Positive for visual disturbance. Negative for pain. Cardiovascular: Negative. Gastrointestinal: Positive for constipation, diarrhea, nausea and vomiting. Genitourinary: Negative for decreased urine volume, frequency, vaginal discharge and vaginal pain. Musculoskeletal: Positive for myalgias (she has been working on the garage). Neurological: Positive for headaches. Psychiatric/Behavioral: Positive for dysphoric mood. Allergies Allergen Reactions ??? Codeine Nausea And Vomiting ??? Unable To Find [Unclassified Drug] Seasonal Current Outpatient Medications Medication Sig Dispense Refill ??? rOPINIRole (Requip) 1 mg Tablet Take 3 tablets by mouth nightly. 270 tablet 3 ??? FLUoxetine (PROzac) 20 mg Tablet Take 1 tablet by mouth daily. 90 tablet 3 ??? albuteroL (Ventolin HFA) 90 mcg/actuation HFA Aerosol Inhaler Inhale 2 puffs into the lungs every 6 hours as needed for Wheezing. Use with spacer 1 Inhaler 3 ??? oxybutynin XL (Ditropan-XL) 5 mg Tablet Extended Rel 24 hr Take 2 tablets by mouth daily. 180 tablet 3 ??? baclofen (Lioresal) 10 mg Tablet Take 1 tablet by mouth 2 times daily. 180 tablet 3 ??? esomeprazole (NexIUM) 40 mg Capsule, Delayed Release(E.C.) Take 1 capsule by mouth 2 times daily. 180 capsule 3 ??? famotidine (Pepcid) 40 mg Tablet Take 1 tablet by mouth 2 times daily. 180 tablet 3 ??? cyclobenzaprine (Flexeril) 10 mg Tablet Take 1 tablet by mouth 3 times daily as needed for Muscle spasms. 30 tablet 0 ??? fluticasone propion-salmeteroL (Advair Diskus) 250-50 mcg/dose Disk with Device Inhale 1 puff into the lungs 2 times daily. 3 Inhaler 3 ??? fluticasone propionate (FLONASE) 50 mcg/actuation [place], Suspension 1 spray by Each Nare route daily. 16 g 12 ??? hyoscyamine (LEVSIN) 0.125 mg Tablet Take 1 tablet by mouth every 6 hours as needed for Cramping. 30 tablet 5 No current facility-administered medications for this visit. Patient Active Problem List Diagnosis Code ??? Radiculopathy of lumbar region M54.16 ??? Renal mass N28.89 ??? Neck pain M54.2 ??? Asthma J45.909 ??? Health care maintenance Z00.00 ??? Pain in limb (LEG) M79.609 ??? Age-related osteoporosis without current pathological fracture M81.0 ??? Restless leg syndrome G25.81 ??? Low ferritin level R79.0 ??? IBS (irritable bowel syndrome) K58.9 ??? Urinary frequency R35.0 ??? Elevated TSH R79.89 ??? Gastroesophageal reflux K21.9 ??? Shabana infection, esophageal B37.81 ??? Hiatal hernia K44.9 OBJECTIVE: Vitals: 11/23/20 1345 BP: 113/57 BP Location (NBP): Left arm Patient Position: Sitting BP Cuff Sizes: Adult (25-34 cm) Pulse: 62 Temp: 36.8 ??C (98.2 ??F) TempSrc: Temporal SpO2: 99% Weight: 56.2 kg (124 lb) Height: 154.9 cm (5' 1) PHYSICAL EXAM: Physical Exam Vitals reviewed. Constitutional: Appearance: Normal appearance. She is well-developed, well-groomed and normal weight. HENT: Head: Normocephalic and atraumatic. Cardiovascular: Rate and Rhythm: Normal rate and regular rhythm. Pulses: Normal pulses. Heart sounds: Normal heart sounds. Pulmonary: Effort: Pulmonary effort is normal. Breath sounds: Normal breath sounds. Abdominal: General: Abdomen is flat. Musculoskeletal: Right lower leg: No edema. Left lower leg: No edema. Skin: General: Skin is warm and dry. Findings: Rash present. Neurological: Mental Status: She is alert and oriented to person, place, and time. Psychiatric: Behavior: Behavior is cooperative. ASSESSMENT & PLAN: Elida was seen today for GERD follow-up and skin concern. Diagnoses and all orders for this visit: Intertrigo Thin longitudinal reddened irritation on abdomen is suspected to be intertrigo in early stage. Recommendations provided to keep the lower abdomen dry, including using a rolled washcloth to keep the skin from folding. Rx as noted by Allison Granados APRN Elevated cholesterol - atorvastatin (Lipitor) 20 mg Tablet; Take 1 tablet by mouth daily. 10-year ASCVD risk score completed and result is greater than 7.5 and therefore cholesterol controlling medication is recommended. Other orders - oxybutynin XL (Ditropan-XL) 5 mg Tablet Extended Rel 24 hr; Take 1 tablet by mouth daily. She has been on oxybutynin XL 10 mg without increasing symptoms. Will decrease to 5 mg to provide the least necessary dose required for her. If she has an increase in symptoms, she should call the office. - level 2 mask and goggles were worn during the entire visit and gloves were worn during physical exam. Allison Granados APRN - 11/23/2020 2:00 PM EDT Images from the original note were not included. PCP: Allison Granados APRN Chief Complaint Patient presents with ??? Follow-up Stomach problems - ongoing ??? Other Red and painful line along lower abdomen SUBJECTIVE: Elida Montez is a 70 y.o. female who presents for ongoing GERD. She is eating and drinking the same things. She has increased acid reflux after eating and occasional vomiting. Her asthma is doing fine. She is using albuterol more with allergies. She did restart metamucil for increased IBS and it ishelping. She has been under a lot of stress with her son who had a motorcycle accident recently. HLD- she is willing to start statin. The 10-year ASCVD risk score (Ogjack ARMSTRONG Jr., et al., 2013) is: 9.9% Values used to calculate the score: Age: 70 years Sex: Female Is Non- : No Diabetic: No Tobacco smoker: No Systolic Blood Pressure: 113 mmHg Is BP treated: No HDL Cholesterol: 47 mg/dL Total Cholesterol: 249 mg/dL Review of Systems Constitutional: Negative for fever. Cardiovascular: Negative for chest pain and palpitations. Gastrointestinal: Positive for abdominal pain (GERD). Psychiatric/Behavioral: The patient is nervous/anxious. Allergies Allergen Reactions ??? Codeine Nausea And Vomiting ??? Unable To Find [Unclassified Drug] Seasonal Current Outpatient Medications Medication Sig Dispense Refill ??? rOPINIRole (Requip) 1 mg Tablet Take 3 tablets by mouth nightly. 270 tablet 3 ??? FLUoxetine (PROzac) 20 mg Tablet Take 1 tablet by mouth daily. 90 tablet 3 ??? albuteroL (Ventolin HFA) 90 mcg/actuation HFA Aerosol Inhaler Inhale 2 puffs into the lungs every 6 hours as needed for Wheezing. Use with spacer 1 Inhaler 3 ??? oxybutynin XL (Ditropan-XL) 5 mg Tablet Extended Rel 24 hr Take 2 tablets by mouth daily. 180 tablet 3 ??? baclofen (Lioresal) 10 mg Tablet Take 1 tablet by mouth 2 times daily. 180 tablet 3 ??? esomeprazole (NexIUM) 40 mg Capsule, Delayed Release(E.C.) Take 1 capsule by mouth 2 times daily. 180 capsule 3 ??? famotidine (Pepcid) 40 mg Tablet Take 1 tablet by mouth 2 times daily. 180 tablet 3 ??? cyclobenzaprine (Flexeril) 10 mg Tablet Take 1 tablet by mouth 3 times daily as needed for Muscle spasms. 30 tablet 0 ??? fluticasone propion-salmeteroL (Advair Diskus) 250-50 mcg/dose Disk with Device Inhale 1 puff into the lungs 2 times daily. 3 Inhaler 3 ??? fluticasone propionate (FLONASE) 50 mcg/actuation [place], Suspension 1 spray by Each Nare route daily. 16 g 12 ??? hyoscyamine (LEVSIN) 0.125 mg Tablet Take 1 tablet by mouth every 6 hours as needed for Cramping. 30 tablet 5 No current facility-administered medications for this visit. Patient Active Problem List Diagnosis Code ??? Radiculopathy of lumbar region M54.16 ??? Renal mass N28.89 ??? Neck pain M54.2 ??? Asthma J45.909 ??? Health care maintenance Z00.00 ??? Pain in limb (LEG) M79.609 ??? Age-related osteoporosis without current pathological fracture M81.0 ??? Restless leg syndrome G25.81 ??? Low ferritin level R79.0 ??? IBS (irritable bowel syndrome) K58.9 ??? Urinary frequency R35.0 ??? Elevated TSH R79.89 ??? Gastroesophageal reflux K21.9 ??? Shabana infection, esophageal B37.81 ??? Hiatal hernia K44.9 OBJECTIVE: Vitals: 11/23/20 1345 BP: 113/57 BP Location (NBP): Left arm Patient Position: Sitting BP Cuff Sizes: Adult (25-34 cm) Pulse: 62 Temp: 36.8 ??C (98.2 ??F) TempSrc: Temporal SpO2: 99% Weight: 56.2 kg (124 lb) Height: 154.9 cm (5' 1) PHYSICAL EXAM: Physical Exam Vitals reviewed. Constitutional: General: She is not in acute distress. Appearance: She is well-developed. HENT: Head: Normocephalic and atraumatic. Eyes: General: No scleral icterus. Conjunctiva/sclera: Conjunctivae normal. Cardiovascular: Rate and Rhythm: Normal rate and regular rhythm. Heart sounds: Normal heart sounds. No murmur heard. Pulmonary: Effort: Pulmonary effort is normal. Breath sounds: Normal breath sounds. No wheezing or rales. Chest: Chest wall: No tenderness. Skin: General: Skin is warm and dry. Neurological: Mental Status: She is alert and oriented to person, place, and time. Psychiatric: Behavior: Behavior normal. Thought Content: Thought content normal. Judgment: Judgment normal. ASSESSMENT & PLAN: Elida was seen today for follow-up and other. Diagnoses and all orders for this visit: Intertrigo Elevated cholesterol - reviewed the prior labs and recommended starting statin. She is in agreement with the plan. - atorvastatin (Lipitor) 20 mg Tablet; Take 1 tablet by mouth daily. OAB - will decrease dose to 5 mg daily and see how she does with it. - oxybutynin XL (Ditropan-XL) 5 mg Tablet Extended Rel 24 hr; Take 1 tablet by mouth daily. RLS- doing well on requip GERD- ongoing chronic problem for her. Continue on nexium and pepcid Intertrigo - will treat with clotrimazole cream - level 2 mask, and face shield were worn during the entire visit and gloves were worn during physical exam. documented in this encounter Plan of Treatment Not on filedocumented as of this encounter Visit Diagnoses Diagnosis Intertrigo Other specified erythematous condition Elevated cholesterol Pure hypercholesterolemia documented in this encounter Care Teams Transfer Engineer Relationship Specialty Start Date End Date Allison Granados APRN PCP - General 04/22/14 06/27/[address] [facility] [address] [place] [address] documented as of this encounter
--- OUTSIDE RECORDS SUMMARY | 2021-12-28 04:07 | XMS_ITS | Encounter Summary ---
:1950 Author Organization [facility] [place] [address] Care Team Providers Name Role Phone Allison Granados APRN Primary Care Provider [phone] Reason for Visit Reason Comments Triage Covid 19 test Encounter Details Date Type Department Care Team Description 03/01/2020 Telephone Public Health Avi Sparrow [facility]ria [facility] (Covid 19 test) [place] [address] Social History Tobacco Use Types Packs/Day Years Used Date Never Smoker Smokeless Tobacco: Never Used Alcohol Use Standard Drinks/Week Comments Yes 0 (1 standard drink = 0.6 oz pure alcoho l) 1 glass of wine/month Alcohol Habits Answer Date Recorded How often do you have a drink containing alcohol? Not asked How many drinks containing alcohol do you have on Not asked a typical day when you are drinking? How often do you have six or more drinks on one Not asked occasion? Comment: 1 glass of wine/month 04/02/2017 Sex Assigned at Date Recorded Not on file documented as of this encounter Miscellaneous Notes Telephone Encounter - Avi Buenrostro RN - 03/01/2020 12:00 PM EDT High Threat Infection Intake Questions Nurse Triage Assessment Review of Pertinent Systems & Pertinent positive/negative findings (e.g. Skin, Neurological, Respiratory, Cardiac, GI, , and Musculoskeletal):Received call from Primary Care to schedule Covid testing for sore throat, cough, wheeze, chest tightness When did your symptoms start? 02/23 People with any of these acute symptoms may have COVID-19: Detail of symptoms: Cough: Yes, productive: no, purulent sputum: no, blood no Shortness of Breath: No Fever: No Check all that apply: [] Fatigue [] Muscle or Body Aches [] Headache [] New loss of taste or smell [] Sore Throat [x] Congestion or runny nose [] Nausea or vomiting [] Diarrhea Pediatrics: [] Retractions/belly breathing [] Skin/Lip color changes [] Wheezing [] Stridor [] Eating/Drinking normally [] Voiding normally Employee or household member at [employer]? no Have you been in contact with anyone suspected or confirmed to have COVID-19 in the past 14 days? No Any travel in the past 14 days? No If so, Where: n/a Date of departure: Date of Return: TESTING CRITERIA: Asymptomatic patients: Criteria for testing- member of or healthcare worker at a custodial/halfway, group home facility or terminal operations supervisor care facility (LTCF), and all first responders. Pre procedural patients requiring admission or determined high risk by provider. * patient or employee returning to college/boarding school, airline travel requirement, or camp participation. Symptomatic Patients: People with COVID-19 have had a wide range of symptoms reported - ranging from mild symptoms to severe illness. Symptoms may appear 2-14 days after exposure to the virus. Consider testing if these symptoms cannot otherwise be explained. Plan/Disposition: If ordering test, ordering PCP: Allison Granados Date, time and location of test: 03/01 1235 If sending for testing ask the following: First test for Covid-19: yes If not first covid test: date of previous test, type of test (molecular, antigen, antibody, or unknown), and result of previous test: n/a Employed in healthcare: no Symptomatic as defined by CDC: yes Resides in congregate care setting: no : no Name of Triage Guideline/Protocol used: Utilized High Threat Infection Screening for Covid 19 Hotline as directed by incident command and infectious disease based on CDC guidelines, [facility] of Health and Human Services, and [facility] policy. Patient/Responsible alliance party voices an understanding of advice: yes Patient/Responsible alliance party intends to comply with actions/disposition: yes All Patients - If YES to exposure and NO to symptoms - Proceed with Quarantine Instructions If NO to symptoms/exposure - Proceed with Nurse Triage - Proceed with appropriate instructions based on Triage protocol If YES to symptoms - Proceed with testing protocol - Proceed with Isolation instructions Important instructions for patient when scheduling for testing: -No dogs allowed in car unless in kennel or behind gated section, due to risk to the clinical staff. -Follow quarantine/isolation instructions (pamphlets available to hand out at testing location Education/Instructions: Isolation Instructions: 1. Stay home from work, school, and away from other public places. If you must go out, avoid using any kind of public transportation, ridesharing, or taxis. 2. Monitor your symptoms carefully. If your symptoms get worse, call your healthcare provider immediately. 3. Get rest and stay hydrated. 4. If you have a medical appointment, call the healthcare provider ahead of time and tell them that you have or may have COVID-19. 5. For medical emergencies, call 911 and notify the dispatch personnel that you have or may have COVID-19. 6. Cover your cough and sneezes. 7. Wash your hands often with soap and water for at least 20 seconds or clean your hands with an alcohol-based hand tierce filler that contains at least 60% alcohol. 8. As much as possible, stay in a specific room and away from other people in your home. Also, you should use a separate bathroom, if available. If you need to be around other people in or outside of the home, wear a facemask. 9. Avoid sharing personal items with other people in your household, like dishes, towels, and bedding 10. Clean all surfaces that are touched often, like counters, tabletops, and doorknobs. Use household cleaning sprays or wipes according to the label instructions. 11. You can use acetaminophen or ibuprofen as directed for fever. Emergency Warning Signs: If you develop emergency warning signs for COVID-19 get medical attention immediately. Emergency warning signs include: ??? Difficulty breathing or shortness of breath ??? Persistent pain or pressure in the chest ??? New confusion or inability to arouse ??? Bluish lips or face This list is not all inclusive. Please consult your medical provider for any other symptoms that aresevere or concerning. Helpful definitions Close contact is described as: Being within approximately 6 feet (2 meters) of a COVID-19 case for a prolonged period of time; close contact can occur while caring for, living with, visiting, or sharing healthcare waiting area or room with a COVID-19 case. OR Having direct Contact with infectious secretions of a COVID-19 case (e.g., being coughed on) Fever Definition: 100.0 F or higher Additional information: ??? Recommend CDC website for helpful information on self-care and quarantine at home o https://www.cdc.gov/ and choose more information on Covid-19 *May test at [facility] only. 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
--- OUTSIDE RECORDS SUMMARY | 2021-12-28 04:07 | XMS_ITS | Encounter Summary ---
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
--- OUTSIDE RECORDS SUMMARY | 2021-12-28 04:07 | XMS_ITS | Encounter Summary ---
:1950 Author Organization [facility] [place] [address] Care Team Providers Name Role Phone Kerwin Pineda Primary Care Provider Reason for Visit Reason Onset Date Comments Medication Refill 09/21/2021 Encounter Details Date Type Department Care Team Description 09/21/2021 Refill Internal Medicine at [place] Kerwin Bajwa PA Urinary frequency [facility] DR Gutierrez [facility] [place] [address] [place] [address] [phone] Social History Tobacco Use Types Packs/Day Years [...] this encounter Miscellaneous Notes Telephone Encounter - Corin Benoit RN - 09/25/2021 1:38 PM EDTSummary: [facility] B and are trying to fill it again todayooke the problem is not with th prescription, but with the supply chain. They have been unable to get the Vesicare in. They have the prescription.and are trying to order it again today. Telephone Encounter - Laura Zuniga - 09/25/2021 12:58 PM EDT Patient has been out of medication for over a week and needs her new prescription soon as possible. Telephone Encounter - Sasha Zuniga - 09/21/2021 10:14 AM EDT Patient called in for refill of vesicare. Patient stated pharmacy has in stock just waiting for to sign off on. 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
--- OUTSIDE RECORDS SUMMARY | 2021-12-28 04:07 | XMS_ITS | Encounter Summary ---
:1950 Author Organization [facility] [place] [address] Care Team Providers Name Role Phone Allison Granados APRN Primary Care Provider [phone] Encounter Details Date Type Department Care Team Description 10/13/2020 Hospital Encounter Gastroenterology at [place] [facility] [place] [address] [facility] [phone] DR GASTROENTEROLOGY [place], [place] [address] (Wo rk) Social History Tobacco [...] Sign Reading Time Taken Comments Blood Pressure 106/62 10/13/2020 2:10 PM EDT Pulse 82 10/13/2020 1:35 PM EDT Temperature 36.6 ??C (97.9 ??F) 10/13/2020 11:59 AM EDT Respiratory Rate 17 10/13/2020 2:10 PM EDT Oxygen Saturation 95% 10/13/2020 2:10 PM EDT Inhaled Oxygen Concentration - - Weight 56.2 kg (124 lb) 10/13/2020 11:59 AM EDT Height 154.9 cm (5' 1) 10/13/2020 11:59 AM EDT Body Mass Index 23.43 10/13/2020 11:59 AM EDT documented in this encounter Discharge Instructions Discharge InstructionsJuan Najera RN - 10/13/2020 1:44 PM EDT Upper GI Endoscopy: What to Expect at Home Your Recovery You will be able to go home after your doctor or nurse checks to make sure you are not having any problems. You may have to stay overnight if you had treatment during the test. You may have a sore throat for a day or two after the test. This care sheet gives you a general idea about what to expect after the test. How can you care for yourself at home? Activity Rest when you feel tired. ?? You can do your normal activities when it feels okay to do so. Diet ?? Follow your doctor's directions for eating. ?? Unless your doctor has told you not to, drink plenty of fluids. This helps to replace the fluidsthat were lost during the prep. ?? Do not drink alcohol. Medicines ?? Your doctor will tell you if and when you can restart your medicines. He or she will also give you instructions about taking any new medicines. ?? If you take blood thinners, such as warfarin (Coumadin), clopidogrel (Plavix), or aspirin, be sure to talk to your doctor. He or she will tell you if and when to start taking those medicines again.Make sure that you understand exactly what your doctor wants you to do. ?? If polyps were removed or a biopsy was done during the test, your doctor may tell you not to take aspirin or other anti-inflammatory medicines for a few days. These include ibuprofen (Advil, Motrin) and naproxen (Aleve). ?? If you have a sore throat the day after the procedure, use an shrg-niq-zdkpieg spray to numb yourthroat. Sucking on throat lozenges and gargling with warm salt water may also help relieve your symptoms. Other instructions ?? For your safety, do not drive or operate machinery until the medicine wears off and you can think clearly. Your doctor may tell you not to drive or operate machinery until the day after your test. ?? Do not sign legal documents or make major decisions until the medicine wears off and you can think clearly. The anesthesia can make it hard for you to fully understand what you are agreeing to. Additional Information for Sedation Patients For patients who received sedation: ?? You may have received medications before and/or during your procedure which effects your judgement and reaction time. ?? Do not drive, operate machinery, drink alcoholic beverages or make important decisions for 24 hours. ?? Be careful on stairs as you may be unsteady on your feet. ?? You may eat a regular diet as tolerated. ?? Do not smoke if you are alone. ?? IV site: Slight redness or tenderness is normal, you can use a warm compress if you would like. If tenderness and/or redness increase or if foul drainage occurs, please contact your Doctor. Please call [phone] before 8pm Mon-Fri with problems, questions or concerns. If you call after 8pm or on weekends, call the Hospital at [phone] and ask to speak to the Admitting Interviewer price economist and the glass furnace operator will contact that person for you. When should you call for help? Call [phone] anytime you think you may need emergency care. For example, call if: ?? You passed out (lost consciousness). ?? You pass maroon or bloody stools. ?? You have trouble breathing. Call your doctor now or seek immediate medical care if: ?? You have pain that does not get better after you take pain medicine. ?? You are sick to your stomach or cannot drink fluids. ?? You have new or worse belly pain. ?? You have blood in your stools. ?? You have a fever. ?? You cannot pass stools or gas. Watch closely for changes in your health, and be sure to contact your doctor if you have any problems. Where can you learn more? [email or web address] View your After Visit Summary and more online at [email or web address] If you would like to provide feedback about your hospital experience, please call the Office of Patient and Family Relations at . If you have received this After Visit Summary in error, please immediately return it in person to the department, or notify the [facility] Privacy Office by calling toll free at between the hours of 8AM and 5PM to arrange for our retrieval of the documents at no cost to you. Content Version: 12.2 ?? [id number] [employer]. Care instructions adapted under license by [facility]. If you have questions about a medical condition or this instruction, always ask your healthcare professional. [employer] disclaims any warranty or liability for your use of this information. documented in this encounter Medications at Time of Discharge Medication Sig Dispensed Refills Start Date End Date hyoscyamine (LEVSIN) 0.125 Take 1 tablet by 30 tablet 5 mg TabletIndications: LLQ mouth every 6 abdominal pain hours as needed for Cramping. oxybutynin XL Take 2 tablets by 180 tablet 3 08/07/202011/05 (Ditropan-XL) 5 mg Tablet mouth daily. Extended Rel 24 hr baclofen (Lioresal) 10 mg Take 1 tablet by 180 tablet 3 07/0708/03/2021 Tablet mouth 2 times daily. esomeprazole (NexIUM) 40 Take 1 capsule by 180 capsule 3 04/202008/03/2021 mg Capsule, Delayed mouth 2 times Release(E.C.) daily. albuteroL (Ventolin HFA) Inhale 2 puffs 1 Inhaler 3 020 10/26/2020 90 mcg/actuation HFA into the lungs Aerosol Inhaler every 6 hours as needed for Wheezing. Use with spacer famotidine (Pepcid) 40 mg Take 1 tablet by 180 tablet 3 04/0705/17/2021 Tablet mouth 2 times daily. cyclobenzaprine (Flexeril) Take 1 tablet by 30 tablet 0 09/13/2021 10 mg Tablet mouth 3 times daily as needed for Muscle spasms. rOPINIRole (Requip) 1 mg Take 3 tablets by 270 tablet 3 10/0610/26/2020 Tablet mouth nightly. fluticasone Inhale 1 puff 3 Inhaler 3 10/29/2019 12/28/2020 propion-salmeteroL (Advair into the lungs 2 Diskus) 250-50 mcg/dose times daily. Disk with Device FLUoxetine (PROzac) 20 mg Take 1 tablet by 90 tablet 3 10/0610/26/2020 Tablet mouth daily. fluticasone propionate 1 spray by Each 16 g 12 01/29/20 19 12/28/2020 (FLONASE) 50 mcg/actuation Nare route daily. [place], Suspension documented as of this encounter H&P Notes Amarilys Pérez MD - 10/13/2020 1:16 PM EDT Patient Name: Elida Montez Patient Age: 70 y.o. Birthdate: 1950 Admit date: 10/13/2020 Attending Physician: Juancarlos Talbot MD Gastroenterology and Hepatology Pre-Procedure History and Physical Exam Procedure: EGD: Indication: GERD Patient Active Problem List Diagnosis Code ??? [...] infection, esophageal B37.81 ??? Hiatal hernia K44.9 EXAM: HEENT: Airway examined, oropharynx clear Mallampati Score: II (soft palate, uvula, fauces visible) LUNGS: Clear to auscultation HEART: Regular rate and rhythm, normal S1, S2 ABDOMEN: Normal bowel sounds, soft, non tender, non distended, A/P Proceed with the planned endoscopic procedure. ASA 2 - Patient with mild systemic disease with no functional limitations Sedation Plan: moderate (conscious sedation) Risks and benefits of the procedure explained to the patient. Consent signed. documented in this encounter Plan of Treatment Not on filedocumented as of this encounter Procedures Procedure Name Priority Date/Time Associated Diagnosis Comme nts SPECIMEN TO Routine 10/13/2020 1:33 PM Results f or this PATHOLOGY EDT procedure are i n the results section. SURGICAL PATHOLOGY Routine 10/13/2020 1:30 PM Res ults for this REPORT EDT procedure are i n the results section. EGD WITH BIOPSY 10/13/2020 1:14 PM History of GERD and (WRVU 2.49) EDT eosinophilic esophagitis, symptoms have not improved in 2 months, last egd 2018. UPPER GI ENDOSCOPY Routine 10/13/2020 12:53 Resul ts for this PM EDT procedure are i n the results section. documented in this encounter Results Specimen to Pathology (10/13/2020 1:33 PM EDT) Specimen Anatomical Collection Method Collection Time Receive d Time (Source) Location / / Volume Laterality AP Specimen 10/13/2020 1:33 PM 1:33 EDT PM EDT Narrative [facility] - 10/13/2020 1:33 PM EDT Specimen requisition ordered. ??Separate Pathology report to follow Amarilys Pérez MD PATHOLOGY/CYTOLOGY ORDERABLE S Performing Organization Address City/State/ZIP [place] [address] Surgical Pathology Report (10/13/2020 1:30 PM EDT) Component Value Ref Test Analysis Performed At [facility] Range Method Time Signature Surgical [id number] ? Location: 4T; EA11; A [facility] Report The signing pathologist has (i) examined the relevant preparation(s) for the [facility] specimen(s) and (ii) rendered or confirmed the diagnosis(es) . HOSPITAL LABORATORY . ?Surgic al Pathology DIAGNOSIS Esophagus, ??biopsy: - Squamous mucosa negative for diagnostic abnormality. Electronically signed by: ?Dawit Garcia MD Verified: ??10/19/2020 14:52 ??Pathologist Performed at: ??-[place] [facility], [place], [place] SPECIMEN(S) SUBMITTED A - esophagus, biopsy (Multiple) CLINICAL INFORMATION Dysphagia SPECIMEN PROCESSING A - Labeled/Fixative: Esophagus, formalin. Quantity/Size: Fragments, 0.2-0.3 cm. Tissue Description: Soft, zepeda-white tissues. Sections/Processing: Submitted en toto ??in 1 cassette labeled A1. ??pps Specimen (Source) Anatomical Collection Method Collection Time Re ceived Time Location / / Volume Laterality 10/13/2020 1:30 PM EDT Amarilys Pérez MD PATHOLOGY/CYTOLOGY ORDERABLE S Performing Organization Address City/State/ZIP [place] [address] [facility] [address] UPPER GI ENDOSCOPY (10/13/2020 12:53 PM EDT) Component Value Ref Test Analysis Performed At [facility] gist Range Method Time Signature UPPER GI [facility]ATION ENDOSCOPY Endoscopy Procedure Date: 10/13/2020 12:53 PM ? Patient Name: Elida Montez ? Date of : 1950 ? Age: 70 ? Order #: [id number] ? Instrument Name: [id number] ? Procedure: ? Upper GI endoscopy Indications: ? Dysphagia, Heartburn Providers: ? Amarilys Pérez MD, Darien Broderick ? Adrianne Chan MD: ?Allison Granados Medicines: ? Midazolam 2 mg IV, Fentanyl 100 ? micrograms IV, Benzocaine spr ay Complications: ? No immediate complications. Procedure: ? Pre-Anesthesia Assessment: ? - Prior to the procedure, a H istory ? and Physical was performed, a nd ? patient medications and aller gies ? were reviewed. The patient's ? tolerance of previous anesthe terrell was ? also reviewed. The risks and benefits ? of the procedure and the jose tion ? options and risks were discus sed with ? the patient. All questions we re ? answered, and informed consen t was ? obtained. Prior Anticoagulant s: The ? patient has taken no previous ? anticoagulant or antiplatelet agents. ? ASA Grade Assessment: II - A patient ? with mild systemic disease. A fter ? reviewing the risks and benef its, the ? patient was deemed in satisfa ctory ? condition to undergo the proc edure. ? The procedure, indications, b enefits, ? risks and alternatives were e xplained ? to the patient. Specifically ? discussed were potential ? complications including, but not ? limited to, bleeding, perfora tion, ? infection, missing a cancer, and ? adverse medication reactions. The ? Endoscope was introduced thro ugh the ? mouth, and advanced to the se cond ? part of duodenum. The patient ? tolerated the procedure well. The ? upper GI endoscopy was accomp lished ? without difficulty. The patie nt ? tolerated the procedure well. ? Findings: ? Esophagogastric landmarks were identified: the Z-line ? was found at 35 cm, the upper extent of the gastric ? folds was found at 36 cm and the site of hiatal ? narrowing was found at 36 cm from the incisors. ? The examined esophagus was normal. Biopsies were ? taken with a cold forceps for histology. Estimated ? blood loss: none. ? The entire examined stomach was normal. ? The examined duodenum was normal. ? Moderate Sedation: ? I was present during the intraservice time as ? documented by the sedation RN. Impression: ?- Esophagogastric landmarks ? identified. ? - Normal esophagus. Biopsied. ? - Normal stomach. ? - Normal examined duodenum. Recommendation: ?- Await pathology results. ? - Return to referring physici an. ? Attending Participation: ? I personally performed the entire procedure. ? Amarilys Pérez MD Amarilys Pérez MD 10/13/2020 1:35:35 PM This report has been signed electronically. Number of Addenda: 0 Note Initiated On: 10/13/2020 12:53 PM Specimen (Source) Anatomical Collection Method Collection Time Re ceived Time Location / / Volume Laterality 10/13/2020 12:53 PM EDT Allison Granados VEGETABLE HARVEST MACHINE OPERATOR GENERAL SURGICAL ORDERABLES Performing Organization Address City/State/ZIP Code Phon e Number [facility] documented in this encounter Visit Diagnoses Not on filedocumented in this encounter Administered Medications Inactive Administered Medications - up to 3 most recent administrations Medication Order MAR Action Action Date Dose Rate Site lactated ringers infusion New Bag 10/13/2020 12:12 PM 100 mL/hr 100 mL/hr 100 mL/hr, Intravenous, EDT CONTINUOUS, Starting on Fri10/13/20 at 1215, Until Fri10/13/20 at 1420, Endoscopy (Day of Procedure) documented in this encounter Active and Recently Administered Medications Times are shown in EDT. Continuous Medication Order 10/11/2020 10/12/2020 10/13/2020 lactated ringers infusion (CANCELED) 1212 (New Bag - Provider: Candie Houston RN) 100 mL/hr, at 100 mL/hr, Intravenous, CO NTINUOUS, Starting Fri10/13/20 at 1215, Until Fri10/13/20 at 1420, Endo (Day of Procedure) PRN Medication Order 10/11/2020 10/12/2020 10/13/2020 benzocaine (Hurricane One) Mucosal spray 20% (restricted to ginger-procedural use) (CANCELED) 1324 (Given - Provid er: Darien Chan RN) ONCE PRN, Starting Fri10/13/20 at 1324, U ntil Fri10/13/20 at 1647, Intra-Operative (Intra-Procedure) fentaNYL (pf) (50 mcg/mL) multi-dose injection (CANCELED) 1320 (Given - Provider: Darien Chan, JENI)1323 (Given - Provider: Darien Chan RN) ONCE PRN, Starting Fri10/13/20 at 1320, U ntil Fri10/13/20 at 1647, Intra-Operative (Intra-Procedure), Routine midazolam (pf) (Versed) (1 mg/mL) multi-dose injection (CANCELED ) 1323 (Given - Provider: Darien Chan, RN)1420 (Given - Provider: Darien Chan, JENI) ONCE PRN, Starting Fri10/13/20 at 1420, U ntil Fri10/13/20 at 1647, Intra-Operative (Intra-Procedure), Routine documented in this encounter Care Teams Configuration Developer Relationship Specialty Start Date End Date Allison Granados APRN PCP - General 04/22/14 06/27/[address] [facility] [address] [place] [address] documented as of this encounter
--- OUTSIDE RECORDS SUMMARY | 2021-12-28 04:07 | XMS_ITS | Encounter Summary ---
:1950 Author Organization [facility] [place] [address] Care Team Providers Name Role Phone Allison Granados APRN Primary Care Provider [phone] Reason for Visit Reason Onset Date Comments Triage 03/01/2020 Encounter Details Date Type Department Care Team Description 03/01/2020 Telephone Internal Medicine at [facility] JamilaandiVíctor Triage [address] [place] [address] Social History Tobacco Use Types Packs/Day Years [...] this encounter Miscellaneous Notes Telephone Encounter - Pilar Vo RN - 03/01/2020 11:49 AM EDT Phoned [facility], provided verbal order for testing from Allison Telephone Encounter - Pilar Vo RN - 03/01/2020 11:30 AM EDT Caller:patient Learning Needs Assessment Reviewed: No Subjective Patient presents with: Triage Objective/Assessment Symptom onset: past week Location: n/a Duration: n/a Characteristics: symptoms started with a sore throat, over past week patient has developed a cough, tightness in her chest, and a wheeze, no travel or exposure to persons dx or suspected of having covid Aggravating factors: none noted Relieving factors: uses her inhaler, no positive effect noted, tried robitussin with no positive effect Pertinent Past Medical History: Past Medical History: Diagnosis Date ??? Asthma ??? GERD (gastroesophageal reflux disease) Plan Intervention/Plan/ Follow Up: Waiting for permission to order covid testing from PCP, pt prefers to have testing at [facility] to get results back quicker Telephone Encounter - Víctor Sims - 03/01/2020 10:53 AM EDT Message: Pt calling states she has been coughing and wheezing a little tightness in her chest. Please call pt back Ask caller their first and last name and relationship to the patient: Elida Best time to call back: any Ok to leave a message: yes Ok to send [facility] message: n Offered Appointment: gladys GARVIN/Nurse/Color Room Attendant contacted via: Message: y Call: n Pager: n documented in this encounter Plan of Treatment Not on filedocumented as of this encounter Visit Diagnoses Not on filedocumented in this encounter Care Teams Freight Adjuster Relationship Specialty Start Date End Date Allison Granados APRN PCP - General 04/22/14 06/27/21 [facility] [address] R[address] [facility] [address] documented as of this encounter
--- OUTSIDE RECORDS SUMMARY | 2021-12-28 04:07 | XMS_ITS | Encounter Summary ---
:1950 Author Organization [facility] Address [place] [id number] Care Team Providers Name Role Phone Kerwin Pineda Primary Care Provider Reason for Visit Reason Onset Date Comments Medication Refill 09/19/2021 Encounter Details Date Type Department Care Team Description 09/19/2021 Refill Internal Medicine at [place] Kerwin Bajwa PA Urinary frequency [facility] DR Gutierrez [facility] [place] [address] [place] [address] [phone] Social History Tobacco Use Types Packs/Day Years [...] this encounter Miscellaneous Notes Telephone Encounter - Katherine Jarvis - 09/19/2021 2:41 PM EDT Patient stated she is out of medication. Patient stated she would also like this written as dispensing 60 tablets instead of 30 tablets for a 30 day supply instead of 15. Please call to advise. documented in this encounter Plan of Treatment Not on filedocumented as of this encounter Visit Diagnoses Diagnosis Urinary frequency documented in this encounter Care Teams Biomedical Equipment Tech Relationship Specialty Start Date End Date Kerwin Pineda PA PCP - General Internal Medicine 06/28/[address] [facility] [place] [address] documented as of this encounter
--- OUTSIDE RECORDS SUMMARY | 2021-12-28 04:07 | XMS_ITS | Encounter Summary ---
:1950 Author Organization [facility] [address] Care Team Providers Name Role Phone Allison Hector APRN Primary Care Provider [phone] Encounter Details Date Type Department Care Team Description 08/11/2020 Hospital Encounter Ultrasound at [facility] [place] Allison Hector History of thyroid [facility] SOILA Rain nodule [facility] [id number] GENERAL INTERNAL [phone] [place], [place] [address] Social History Tobacco Use Types Packs/Day Years [...] on file documented as of this encounter Medications at Time of Discharge [...] 12/28/2020 (FLONASE) 50 mcg/actuation Nare route daily. [place], Suspension documented as of this encounter Plan of Treatment Not on filedocumented as of this encounter Procedures Procedure Name Priority Date/Time Associated Diagnosis Comme nts US THYROID SOFT Routine 08/11/2020 1:13 PM History of thyroid Results for this TISSUE EST nodule procedure are i n the results section. documented in this encounter Results US Thyroid Soft Tissue (08/11/2020 1:13 PM EST) Anatomical Region Laterality Modality Pelvis Ultrasound Specimen (Source) Anatomical Collection Method Collection Time Re ceived Time Location / / Volume Laterality 08/11/2020 1:13 PM EST Impressions 08/11/2020 1:26 PM EST [employer] TI- RADS Thyroid Nodule Criteria TR1 Score (0 points) - Benign (No FNA) TR2 Score (2 points) - Not suspicious ( No FNA) TR3 Score (3 points) - Mildly suspiciou s (FNA if > 2.5 cm, Follow if > 1.5 cm) TR4 Score (4-6 points) - Moderately jose ramon picious (FNA if > 1.5 cm, Follow if > 1 cm) TR5 Score (7 points or more) - Highly s uspicious (FNA if ??> 1 cm, Follow if > 0.5 cm) Follow up ultrasound recommendations as suming no growth are as follows: TR3: At 1,3 and 5 years TR4: At 1,2,3 and 5 years TR5: At 1,2,3,4,5 years Imaging can stop at 5 years if there is no change in size, as stability over that time span reliably indicates that a nodule has a benign behavior Biopsy of no more than 2 nodules with t he most suspicious criteria is recommended (not necessarily the largest). ??Journal of [employer] 2017;14:587-595 Right Nodule #2 TI-RADS score: 3. Due to size under 1.5 cm, no specific follow-up recommendation. All of the remaining nodules are less t salazar 1 cm in long axis, below TI-Rads scoring threshold, no aggressive features, no specific follow-up recomme ndations. ? Marco Farrell, Staff Peng villegas Electronically Signed Final Report ?? 01:25 pm Narrative 08/11/2020 1:26 PM EST Thyroid ? (Signed Final 08/11/2020 01:25 pm) PATIENT INFO: ID #: ? [id number] ?: ??[birth year] (69 yrs)(F) Name: ? ELIDA iLnk ALLEGRA ?Visit Date: 08/11/2020 01:13 pm PERFORMED BY: Performed By: ? Angel Lloyd RDMS Attending: ?Bud DARDEN, Giuliano schwartz Referred By: ?ALLISON HECTOR Location: ? [place] SERVICE(S) PROVIDED: ??LIZET JOHNS - [id number] INDICATIONS: ??history thyroid nodule, recommended r epeat ??u/s, last was in 2018. COMPARISON: Ultrasound: Thyroid 08/20/17 RIGHT LOBE: ??Date ? L(cm) ? AP(cm) ? TV(cm) ??08/11/20 ? 3.1 ? 1.7 ?1.6 ??08/20/ ? 3.7 ? 1.5 ?1.5 ??16 ? 3.5 ? 1.7 ?1.8 -------- Lesions: -------- ??# ?Date ?Location ?Description ??1 ?08/11/20 ?Mid Lobe ?Solid or almost completely ? solid (2) Hyperechoic or ? isoechoic (1) Wider-than- ? tall (0) Smooth (0 points) ? None or large comet tail ? artifacts (0) ??1 ?18 ?Mid Lobe ?Solid or almost completely ? solid (2) Hyperechoic or ? isoechoic (1) Wider-than- ? tall (0) Smooth (0 points) ? None or large comet tail ? artifacts (0) ??1 ?12/05/16 ?Mid Lobe ?Iso- to hypoechoic, well ? circumscribed, peripheral ? vascularity ??2 ?02/05/21 ?Superior Lobe ? Solid or almost completely ? solid (2), Hyperechoic or ? isoechoic (1), Wider-than- ? tall (0), ill-defined (0 ? points) None or large ? comet tail artifacts (0), ??2 ?06/10/16 ?Upper pole ?Hypoechoic, solid, non ? vascular, no ca++ -------- Lesions: -------- ??# ?? Date ? L(cm) ? AP(cm) ? TV(cm) ?Vol(ml) ?% Chg ??1 ?? 08/11/20 ?? 0.7 ? 0.5 ?0.6 ? 0.0951 ??1 ?? 08/20/17 ?? 0.7 ? 0.6 ?0.6 ? 0.1 ??1 ?? 06/10/16 ?? 0.5 ? 0.5 ?0.6 ??2 ?? 08/11/20 ?? 1.4 ? 0.5 ?0.7 ? 0.2813 ??2 ?? 06/10/16 ?? 1.1 ? 0.8 ?0.8 Comment: ?Multiple nodules seen lar gest 2 measured. LEFT LOBE: ??Date ? L(cm) ? AP(cm) ? TV(cm) ??08/11/20 ? 3.4 ? 1.9 ?1.7 ??08/20/17 ? 3.6 ? 1.8 ?1.5 ??06/10/16 ? 3.1 ? 1.9 ?1.5 -------- Lesions: -------- ??# ?Date ?Location ?Description ??1 ?08/11/20 ?Mid Lobe ?Solid or almost completely ? solid (2), Hyperechoic or ? isoechoic (1), Wider-than- ? tall (0), Smooth (0 points), ? None or large comet tail ? artifacts (0), ??1 ?02/14/18 ?Mid Lobe ?Mixed cystic and solid (1) ? Hyperechoic or isoechoic ? (1) Omfzh-dkfz-ktyi (0) ? Smooth (0 points) None or ? large comet tail artifacts (0) ??1 ?12/05/16 ?Mid Lobe ?Well-circumscribed, solid ? with cystic components, ? peripheral vascularity ??2 ?02/05/21 ?Inferior Lobe ? Spongiform (0), ? Hyperechoic or isoechoic ? (1), Vmmmg-rexu-mxhk (0), ? Smooth (0 points), None ? or large comet tail artifacts ? (0), ??2 ?02/14/18 ?Mid Lobe ?Solid or almost completely ? solid (2) Very hypoechoic ? (3) Cihpu-bhvr-oeuv (0) ? Smooth (0 points) None or ? large comet tail artifacts (0) ??2 ?06/10/16 ?Lower Lobe ?Sponge like, vascular ??3 ?06/10/16 ?Lower Lobe ?Hypoechoic -------- Lesions: -------- ??# ?? Date ? L(cm) ? AP(cm) ? TV(cm) ?Vol(ml) ?% Chg ??1 ?? 08/11/20 ?? 1.3 ? 1.2 ?1.2 ? 0.9803 ??1 ?? 08/20/17 ?? 1.4 ? 1.1 ?1.1 ? 0.9 ??1 ?? 06/10/16 ?? 1.4 ? 1.0 ?1.5 ??2 ?? 08/11/20 ?? 0.5 ? 0.3 ?0.4 ? 0.0325 ??2 ?? 08/20/17 ?? 0.5 ? 0.4 ?0.4 ??2 ?? 06/10/16 ?? 0.5 ? 0.3 ?0.4 ??3 ?? 06/10/16 ?? 0.5 ? 0.3 ?0.6 Comment: ?Multiple nodules seen lar gest 2 measured. -------- ISTHMUS: -------- Measurement: ?0.3 ??cm Comment: ?Normal texture LYMPH NODES: Lateral neck: ??Examination of bilatera l levels II an V does not reveal any masses or morphologically ab normal lymph nodes. Procedure Note Marco Farrell MD - 08/11/2020Format ting of this note might be different from the original. Thyroid (Signed Final 08/11/2020 01:25 pm) PATIENT INFO: ID #: [id number] : [birth year] (69 y rs)(F) Name: ELIDA DINH Visit Date: 08/11 01:13 pm PERFORMED BY: Performed By: Angel Lloyd RDMS Attending: Marco Farrell MD Referred By: ALLISON HECTOR Location: [place] SERVICE(S) PROVIDED: [employer] - TI-RADS - [id number] INDICATIONS: history thyroid nodule, recommended rep [facility] u/s, last was in 2017. COMPARISON: Ultrasound: Thyroid 08/20/17 RIGHT LOBE: Date L(cm) AP(cm) TV(cm) 08/11/20 3.1 1.7 1.6 08/20/17 3.7 1.5 1.5 06/10/16 3.5 1.7 1.8 -------- Lesions: -------- # Date Location Description 1 08/11/20 Mid Lobe Solid or almost com pletely solid (2) Hyperechoic or isoechoic (1) Wider-than- tall (0) Smooth (0 points) None or large comet tail artifacts (0) 1 08/20/17 Mid Lobe Solid or almost com pletely solid (2) Hyperechoic or isoechoic (1) Wider-than- tall (0) Smooth (0 points) None or large comet tail artifacts (0) 1 06/10/16 Mid Lobe Iso- to hypoechoic, well circumscribed, peripheral vascularity 2 08/11/20 Superior Lobe Solid or almos t completely solid (2), Hyperechoic or isoechoic (1), Wider-than- tall (0), ill-defined (0 points) None or large comet tail artifacts (0), 2 06/10/16 Upper pole Hypoechoic, solid , non vascular, no ca++ -------- Lesions: -------- # Date L(cm) AP(cm) TV(cm) Vol(ml) % Ch g 1 08/11/20 0.7 0.5 0.6 0.0951 1 08/20/17 0.7 0.6 0.6 0.1 1 06/10/16 0.5 0.5 0.6 2 08/11/20 1.4 0.5 0.7 0.2813 2 06/10/16 1.1 0.8 0.8 Comment: Multiple nodules seen largest 2 measured. LEFT LOBE: Date L(cm) AP(cm) TV(cm) 08/11/20 3.4 1.9 1.7 08/20/17 3.6 1.8 1.5 06/10/16 3.1 1.9 1.5 -------- Lesions: -------- # Date Location Description 1 08/11/20 Mid Lobe Solid or almost com pletely solid (2), Hyperechoic or isoechoic (1), Wider-than- tall (0), Smooth (0 points), None or large comet tail artifacts (0), 1 08/20/17 Mid Lobe Mixed cystic and so lid (1) Hyperechoic or isoechoic (1) Zqmlm-ckfe-rgbn (0) Smooth (0 points) None or large comet tail artifacts (0) 1 06/10/16 Mid Lobe Well-circumscribed, solid with cystic components, peripheral vascularity 2 08/11/20 Inferior Lobe Spongiform (0) , Hyperechoic or isoechoic (1), Gfqnb-rvru-vfbi (0), Smooth (0 points), None or large comet tail artifacts (0), 2 08/20/17 Mid Lobe Solid or almost com pletely solid (2) Very hypoechoic (3) Aoutz-sldd-dwxq (0) Smooth (0 points) None or large comet tail artifacts (0) 2 06/10/16 Lower Lobe Sponge like, vasc ular 3 06/10/16 Lower Lobe Hypoechoic -------- Lesions: -------- # Date L(cm) AP(cm) TV(cm) Vol(ml) % Ch g 1 08/11/20 1.3 1.2 1.2 0.9803 1 08/20/17 1.4 1.1 1.1 0.9 1 06/10/16 1.4 1.0 1.5 2 08/11/20 0.5 0.3 0.4 0.0325 2 08/20/17 0.5 0.4 0.4 2 06/10/16 0.5 0.3 0.4 3 06/10/16 0.5 0.3 0.6 Comment: Multiple nodules seen largest 2 measured. -------- ISTHMUS: -------- Measurement: 0.3 cm Comment: Normal texture LYMPH NODES: Lateral neck: Examination of bilateral levels II an V does not reveal any masses or morphologically ab normal lymph nodes. IMPRESSION [employer] TI- RADS Thyroid Nodule Criteria TR1 Score (0 points) - Benign (No FNA) TR2 Score (2 points) - Not suspicious ( No FNA) TR3 Score (3 points) - Mildly suspiciou s (FNA if > 2.5 cm, Follow if > 1.5 cm) TR4 Score (4-6 points) - Moderately jose ramon picious (FNA if > 1.5 cm, Follow if > 1 cm) TR5 Score (7 points or more) - Highly s uspicious (FNA if > 1 cm, Follow if > 0.5 cm) Follow up ultrasound recommendations as suming no growth are as follows: TR3: At 1,3 and 5 years TR4: At 1,2,3 and 5 years TR5: At 1,2,3,4,5 years Imaging can stop at 5 years if there is no change in size, as stability over that time span reliably indicates that a nodule has a benign behavior Biopsy of no more than 2 nodules with t he most suspicious criteria is recommended (not necessarily the largest). [employer] of [employer] 2017;14:587-595 Right Nodule #2 TI-RADS score: 3. Due to size under 1.5 cm, no specific follow-up recommendation. All of the remaining nodules are less t salazar 1 cm in long axis, below TI-Rads scoring threshold, no aggressive features, no specific follow-up recomme ndations. Marco Farrell, Staff Physician Electronically Signed Final Report 08/11 01:25 pm Allison Hector APRN IMG US GEN ORDERABLES documented in this encounter Visit Diagnoses Diagnosis History of thyroid nodule Personal history of other endocrine, met abolic, and immunity disorders documented in this encounter Care Teams Senior Microsoft Net Developer Relationship Specialty Start Date End Date Allison Hector APRN PCP - General 04/22/14 06/27/[address] [facility] [place] [address] documented as of this encounter
--- OUTSIDE RECORDS SUMMARY | 2021-12-28 04:07 | XMS_ITS | Encounter Summary ---
:1950 Author Organization [place] [address] Care Team Providers Name Role Phone Allison Granados APRN Primary Care Provider [phone] Encounter Details Date Type Department Care Team Description 08/22/2020 Telephone Gastroenterology at [facility] Carol Ann Calvillo, [place] [phone] Social History Tobacco Use Types Packs/Day [...] this encounter Miscellaneous Notes Telephone Encounter - Carol Ann Calvillo - 08/22/2020 8:17 AM EST Elida Link Tc [id number] Diagnosis/Indication: History of GERD and eosinophilic esophagitis, symptoms have not improved in 2 months, last egd 2019. 1. Do you take any Blood Thinners? No 2. Do you have a Pacemaker or Defibrillator device? No 3. Are you a diabetic? No 4. Do you have any Allergies to Eggs, Latex or Medications? Yes: In chart 5. Do you take any Oral Iron Supplements (Including multi-vitamins)? No 6. Do you have a history of three or more abdominal surgeries? No 7. Have you had a problem with sedation or anesthesia? No 8. Do you have a c-pap machine or oxygen tank? Neither 9. Do you take prescription narcotic pain medications, including suboxone or methodone? No 10. Do you have a preference regarding the gender of your provider? No Preference 11. Is there any other information you would like to give us to aid in scheduling? No 12. Say to patient: You must have a responsible democrat who will drive you to your procedure, stay on campus for the entire duration of your procedure, and drive you home from your procedure? *Please Verify the height and weight, and adjust if height and/or weight have changed* Estimated body mass index is 24.59 kg/m?? as calculated from the following: Height as of 08/07/20: 153.7 cm (5' 0.5). Weight as of 08/07/20: 58.1 kg (128 lb). *Delete if not needed* Height: 5'1 Weight: 128 BMI: 24.59 Age:69 y.o. documented in this encounter Plan of Treatment Not on filedocumented as of this encounter Visit Diagnoses Not on filedocumented in this encounter Care Teams Financial Advisor Relationship Specialty Start Date End Date Allison Granados APRN PCP - General 04/22/14 06/27/[address] [facility] [address] ROD INTERNAL [facility] [place] [address] documented as of this encounter
--- OUTSIDE RECORDS SUMMARY | 2021-12-28 04:07 | XMS_ITS | Encounter Summary ---
:1950 Author Organization [facility] [place] [address] Care Team Providers Name Role Phone Kerwin Pineda Primary Care Provider Reason for Visit Reason Onset Date Comments Medication Refill 10/26/2021 Encounter Details Date Type Department Care Team Description 10/26/2021 Refill Internal Medicine at [place] Nathan Peguero MD [facility] DR Gutierrez [facility] [place] [address] RD [phone] [place], [place] [address] (Wo rk) Social History Tobacco [...] on filedocumented in this encounter Care Teams Feather Washer Relationship Specialty Start Date End Date Kerwin Pineda PA PCP - General Internal Medicine 06/28/21 [facility] [place] [address] documented as of this encounter
--- OUTSIDE RECORDS SUMMARY | 2021-12-28 04:07 | XMS_ITS | Encounter Summary ---
:1950 Author Organization [facility] [address] Care Team Providers Name Role Phone Allison Granados APRN Primary Care Provider [phone] Reason for Visit Reason Onset Date Comments Medication Problem 10/29/2019 Encounter Details Date Type Department Care Team Description 10/29[facility] [address] [place] [address] Social History Tobacco Use Types [...] this encounter Miscellaneous Notes Telephone Encounter - Allison Granados APRN - 10/29/2019 4:43 PM EDT I am fine with the change. Telephone Encounter - Poly Wood - 10/29/2019 4:12 PM EDT Pharmacy or caller: [facility] Medication: FLUoxetine (PROzac) 20 mg Tablet Message: [facility] is calling they would like to prescribe the capsule instead of the tablet as it is a lot less expensive. Please advise Did you contact your pharmacy?: n/a documented in this encounter Plan of Treatment Not on filedocumented as of this encounter Visit Diagnoses Not on filedocumented in this encounter Care Teams Silk Weaver Relationship Specialty Start Date End Date Allison Granados APRN PCP - General 04/22/14 06/27/[address] [facility] [place] [address] documented as of this encounter
--- OUTSIDE RECORDS SUMMARY | 2021-12-28 04:07 | XMS_ITS | Encounter Summary ---
:1950 Author Organization [place] [address] Care Team Providers Name Role Phone Kerwin Pineda Primary Care Provider Reason for Referral Physical Therapy (Routine) - Closed Specialty Diagnoses / Procedures Referred By Contact Refer red To Contact Physical Therapy Diagnoses Acute right-sided low back pain without sciatica Kerwin Pineda, Physi amina Therapy, CANDELARIO [facility] [address] [facility] INTERNAL MEDICINE [address] [address] Referral ID Status Reason Start Date Expiration Date Visits V isits Requested Authorized [id number] Closed Evaluate and 09/13/2021 03/12/2022 10 10 Treat Reason for Visit Reason Comments Back Pain Low back pain, for over a we ek Encounter Details Date Type Department Care Team Description 09/13/2021 Office Visit Internal Medicine at Kerwin Pineda [place] right-sided low [address] CANDELARIO Koch back pain without [address] [facility] sciatica [address] Lawson [facility] INTERNAL MEDICINE [phone] [place], [place] [address] Social History Tobacco Use Types [...] Pulse 61 09/13/2021 10:31 AM EST Temperature - - Respiratory Rate - - Oxygen Saturation 100% 09/13/2021 10:31 AM EST Inhaled Oxygen Concentration - - Weight 60.8 kg (134 lb) 09/13/2021 10:31 AM EST Height 153.3 cm (5' 0.35) 09/13/2021 10:31 AM EST repo rted Body Mass Index 25.86 09/13/2021 10:31 AM EST documented in this encounter Progress Notes Kerwin Pineda PA - 09/13/2021 10:20 AM EST Elida Montez is here today to discuss: Chief Complaint Patient presents with ??? Back Pain Low back pain, for over a week Reports sudden LBP about 1 week ago. Does not recall what she was doing or when it was but denies any injury, trauma, or falls. LOP is currently 5/10 at rest, but a 10/10 with movement, especially standing from seating position.Pain localized to right sided lumbar area, just above iliac crest. No LE weakness or pain. Does report intermittent tingling throughout right legs x several weeks. She has tried topical lidocaine, OTC pain pills unsure if aspirin or Tylenol. Takes ibuprofen 400mg qhs prn for left thumb arthritis. She has a chronic LBP with 2014 YULI at left L4-L5. DEXA in 2018 with T score -2.4. Does not take any supplemental Ca or Vit D. Has been on Nexium 40mg bid plus Pepcid 40mg bid for at least 5 years. Tolerated Flexeril in the past for cervical pain, which resolved with PT. Patient Active Problem List Diagnosis Date Noted ??? Asthma 05/03/2014 ??? Renal mass 03/23/2014 ??? Restless leg syndrome 01/24/2015 ??? Low ferritin level 01/24/2015 ??? Age-related osteoporosis without current pathological fracture 10/05/2014 ??? Health care maintenance 05/03/2014 ??? Pain in limb (LEG) 07/14/2014 ??? Neck pain 04/21/2014 ??? Radiculopathy of lumbar region 03/04/2014 ??? Shabana infection, esophageal 03/25/2019 ??? Hiatal hernia 03/25/2019 ??? Gastroesophageal reflux 08/26/2016 ??? Elevated TSH 08/15/2016 ??? IBS (irritable bowel syndrome) 11/03/2015 ??? Urinary frequency 11/03/2015 Medications 06/13/21 0931 Medication Sig Taking? baclofen (Lioresal) 10 mg Tablet Take 1 tablet by mouth 2 times daily. Yes esomeprazole (NexIUM) 40 mg Capsule, Delayed Release(E.C.) Take 1 capsule by mouth 2 times daily. Yes fluticasone propion-salmeteroL (ADVAIR) 500-50 mcg/dose Disk with Device Inhale 1 puff into the lungs every 12 hours. Yes solifenacin (VESICARE) 5 mg Tablet Take 2 tablets by mouth daily. Yes famotidine (Pepcid) 40 mg Tablet Take 1 tablet by mouth 2 times daily. Yes UNABLE TO FIND Take 1 capsule by mouth daily. Neuriva Plus Probiotic powder Yes ascorbic acid, vitamin C, (VITAMIN C) 500 mg Tablet, Chewable Take 500 mg by mouth daily. Yes fluticasone propionate (FLONASE) 50 mcg/actuation [place], Suspension 1 spray by Each Nare route daily. Yes atorvastatin (Lipitor) 20 mg Tablet Take 1 tablet by mouth daily. Yes rOPINIRole (Requip) 1 mg Tablet Take 3 tablets by mouth nightly. Yes FLUoxetine (PROzac) 20 mg Tablet Take 1 tablet by mouth daily. Yes albuteroL (Ventolin HFA) 90 mcg/actuation HFA Aerosol Inhaler Inhale 2 puffs into the lungs every 6 hours as needed for Wheezing. Use with spacer Yes cyclobenzaprine (Flexeril) 10 mg Tablet Take 1 tablet by mouth 3 times daily as needed for Muscle spasms. Yes hyoscyamine (LEVSIN) 0.125 mg Tablet Take 1 tablet by mouth every 6 hours as needed for Cramping. Yes PE BP 115/66 (BP Location (NBP): Left arm, Patient Position: Sitting, BP Cuff Sizes: Adult (25-34 cm)) Pulse 61 Ht 153.3 cm (5' 0.35) Comment: reported Wt 60.8 kg (134 lb) SpO2 100% BMI 25.86 kg/m?? Gen: pleasant and comfortable. Speech is articulate. Heart: RRR, no MRG Chest: CTAB, no wheezes MSK: paraspinal muscle tenderness on right lumbar area superior to iliac crest, no significant bony tenderness. Ext: No pedal edema Neuro: CN II - XII intact Gait: no assistive device. Adequate clearance of feet during swing phase, stable balance on level surfaces and with change of direction. Lab Results Component Value Date WBC 7.4 08/07/2020 HGB 14.4 08/07/2020 HCT 45.0 08/07/2020 MCV 91.5 08/07/2020 PLATELET 290 08/07/2020 Chemistry Component Value Date/Time NA 139 08/07/2020 1018 K 4.3 08/07/2020 1018 CL 105 08/07/2020 1018 CO2 28 08/07/2020 1018 BUN 15 08/07/2020 1018 CREATININE 0.66 (L) 08/07/2020 1018 Component Value Date/Time CALCIUM 9.1 08/07/2020 1018 ALKPHOS 97 08/07/2020 1018 AST 26 08/07/2020 1018 ALT 34 (H) 08/07/2020 1018 BILITOT 0.9 08/07/2020 1018 Lab Results Component Value Date CHLPL 249 08/07/2020 HDL 47 08/07/2020 CHOLHDL 5.3 08/07/2020 TRIG 136 08/07/2020 LDLCHOL 175 08/07/2020 Lab Results Component Value Date TSH 1.66 08/07/2020 ASSESSMENT/PLAN I discussed the following diagnosis/diagnoses and differential diagnoses in detail with Ms. Montez,including treatment options and she agrees with the plan outlined below. All chronic problems listedin H&P are stable unless otherwise noted below. 1. Acute right-sided low back pain without sciatica - There is a concern for OP considering last DEXA Tscore -2.4 and pt is on high dose PPI plus high dose H2 x 5+ yrs, however compression fracture seems unlikely given the area of pain. Will r/o compression fx with XR and refer to PT if negative. - XR Lumbar Spine 2 Or 3 Views (Generic); Future - Referral to Physical Therapy - cyclobenzaprine (Flexeril) 10 mg Tablet; Take 1 tablet by mouth nightly as needed for Muscle spasms. Dispense: 14 tablet; Refill: 0 - Ms. Montez was given the necessary information on her condition and instructed to return to clinic if symptoms continue or worsen and to follow-up with CANDELARIO Oswald for chronic management as needed. - An After Visit Summary was either printed and given to the patient or provided via the patient portal at the patient's request. No future appointments. documented in this encounter Plan of Treatment Scheduled Referrals Name Type Priority Associated Diagnoses Order S chedule Referral to Outpatient Referral Routine Acute right-sided Ord ered: Physical Therapy low back pain 09/13/2021 without sciatica documented as of this encounter Results XR Lumbar Spine 2 Or 3 Views (Generic) (09/13/2021 12:13 PM EST) Anatomical Region Laterality Modality L-spine N/A Digital Radiography Specimen (Source) Anatomical Location Collection Method / Collectio n Time Received Time / Laterality Volume Impressions 09/13/2021 2:28 PM EST No focal vertebral body height loss. Minimal degenerative disc disease of the lower lumbar spine. Facet arthropathy of the lower lumbar spine. I have personally reviewed the image(s) and the resident's interpretation and agree with the findings, Julienne Linda MD at 09/13/2021 2:28 PM Thank you for letting us participate in the care of this patient. ??If you are a health care provider and have any questi ons regarding this report, please contact the number below. ??For patients who have questions please contact the health nurse healthcare manager that requested your imaging first. ? Narrative 09/13/2021 2:28 PM EST EXAMINATION: XR LUMBAR SPINE 2 OR 3 VIEWS (GENERIC) CLINICAL HISTORY: acute right sided lumb ar pain, last T-score -2.4 (as entered by ordering provider in the order requis ition) TECHNIQUE: AP and lateral views of the lumbar spine COMPARISON: MR L-spine 03/18/2014 FINDINGS: There are 5 nonrib bearing vertebral bod ies with small ribs arising from T12. 3 mm anterolisthesis of L5 on S1. Vertebra l body heights are maintained. Minimal disc height loss at L4-5 and L5-S1 is si milar when compared to 2014. Lumbar lordosis is maintained. Facet arthropath y at L4-5 and L5-S1. Neural foramina are preserved. Partially visualized anterior bridging o steophyte at T10-T11. Vascular calcifications. Moderate amount of stool burden. Surgical clips in the right upper quadrant. Procedure Note Julienne Linda MD - 09/13/2021Formattin g of this note might be different from the original. EXAMINATION: XR LUMBAR SPINE 2 OR 3 VIEW S (GENERIC) CLINICAL HISTORY: acute right sided lumb ar pain, last T-score -2.4 (as entered by ordering provider in the order requis ition) TECHNIQUE: AP and lateral views of the lumbar spine COMPARISON: MR L-spine 03/18/2014 FINDINGS: There are 5 nonrib bearing vertebral bod ies with small ribs arising from T12. 3 mm anterolisthesis of L5 on S1. Vertebra l body heights are maintained. Minimal disc height loss at L4-5 and L5-S1 is si milar when compared to 2014. Lumbar lordosis is maintained. Facet arthropath y at L4-5 and L5-S1. Neural foramina are preserved. Partially visualized anterior bridging o steophyte at T10-T11. Vascular calcifications. Moderate amount of stool burden. Surgical clips in the right upper quadrant. IMPRESSION No focal vertebral body height loss. Min imal degenerative disc disease of the lower lumbar spine. Facet arthropathy of the lower lumbar spine. I have personally reviewed the image(s) and the resident's interpretation and agree with the findings, Julienne Linda MD at 09/13/2021 2:28 PM Thank you for letting us participate in the care of this patient. If you are a health care provider and have any questi ons regarding this report, please contact the number below. For patients w ho have questions please contact the health nurse healthcare manager that requested your imaging first. Rodolfo Lucia MD IMG DX ORDERABLES documented in this encounter Visit Diagnoses Diagnosis Acute right-sided low back pain without sciatica Acute right-sided low back pain without sciatica documented in this encounter Care Teams Senior Medical Technologist Relationship Specialty Start Date End Date Kerwin Pineda PA PCP - General Internal Medicine 06/28/[address] [facility] [place] [place] [address] documented as of this encounter
--- OUTSIDE RECORDS SUMMARY | 2021-12-28 04:07 | XMS_ITS | Encounter Summary ---
:1950 Author Organization [facility] [place] [address] Care Team Providers Name Role Phone Allison Granados APRN Primary Care Provider [phone] Encounter Details Date Type Department Care Team Description 03/01/2020 Public [facility] Public [facility] COVID-[place] [address] Social History Tobacco Use Types Packs/Day [...] Name Priority Date/Time Associated Diagnosis Comme nts COVID-19 PCR STAT 03/01/2020 3:03 PM COVID-19 ruled out Res ults for this EDT procedure are i n the results section . documented in this encounter Results COVID-19 PCR (03/01/2020 3:03 PM EDT) [facility] Method Time Signature SARS-CoV-2 Not Detected Not Detected [facility] Comment: This result should be interpreted in com bination with the clinical observations, patient history and epidem iological information. For testing of asymptomatic individuals, assay performa nce characteristics and clinical utility have not been evaluated. Testing for SARS-CoV-2 (Severe acute respiratory syndrome coronavirus 2, form erly known as 2019 novel coronavirus or 2019-nCoV) to aid in the diagnosis of CO VID-19 is performed using the [employer] RealTime SARS-CoV-2 as authorized by the FDA Emergency Use Authorization (EUA). This EUA assay is intended for In-vitro Diagnostic (IVD) use with respiratory specimens such as nasopharyngeal swabs c ollected from individuals during the acute phase of infection. This assay is performed based on the instructions for use provided by the [employer] and additional guidance provided by CDC and FDA. Testing is performed in the [facility] within the Department of Path ology and Laboratory Medicine at [facility], cert ified under the Clinical Laboratory Improvement Amendments of 1988 (CLIA), 4 2 U.S.C. section 263a, to perform high complexity tests. Assay performance has been verified according to clinical laboratory regulatory requirements. Test results are provided above. A resul t of Not Detected indicates that the viral RNA target is not present but does not preclude SARS-CoV-2 infection. False negative results may occur if a sp ecimen is improperly collected, transported or handled; if amplification inhibitors are present; or if inadequate numbers of viral particles ar e present in the specimen. A result of Detected suggests a current or recent infection and the patient is presumed to be infected. As required or requested by public health authorities, positive specimens may be sent for additional rajani ting. Positive and negative predictive values for this test are highly dependen t on disease prevalence. A result of Invalid indicates that neither the vir al RNA targets nor the internal control target was detected. An invalid result s uggests the presence of inhibitors. Recollection is recommended in the case of an invalid result. CDC COVID-19 criteria for testing on hum an specimens and clinical management guidance information are available at th e CDC Coronavirus Disease 2019 (COVID-19) webpage under Information fo r Healthcare Professionals (https://www.cdc.gov/coronavirus/2019-nc ov/hcp/index.html) Additional information about this and ot her EUA tests can be found in provider and patient fact sheets at the following FDA website: https://www.fda.gov/medical-devices/btevywnqf-liwcocklbt-ozgbznd-devices/emergen xu-eax-fpatkycqfwgdjw#lxhsa64bvc SARS-Cov-2 RNA Source [employer] Sw[employer] [facility] Specimen (Source) Anatomical Collection Method Collection Time Re ceived Time Location / / Volume Laterality Nasopharyngeal swab 03/01/2020 3:03 03/01 (specimen) PM EDT 3:03 PM EDT Comment: Symptoms->Fever / Respiratory S ymptoms Resulting Agency Comment Spec In Lab Allison Granados APRN MICROBIOLOGY - GENERAL ORDER SOURAV Performing Organization Address City/State/[place] [address] documented in this encounter Visit Diagnoses Diagnosis COVID-19 ruled out documented in this encounter Care Teams Expense Clerk Relationship Specialty Start Date End Date Allison Granados APRN PCP - General 04/22/14 06/27/[address] [facility] [address] [place] [address] documented as of this encounter
--- OUTSIDE RECORDS SUMMARY | 2021-12-28 04:07 | XMS_ITS | Encounter Summary ---
:1950 Author Organization [facility] [place] [address] Care Team Providers Name Role Phone Allison Granados APRN Primary Care Provider [phone] Encounter Details Date Type Department Care Team Description 09/23/2019 Orders Only Internal Medicine at [place] RobertaCarl shannon, Road CERTIFIED MEDICATION AIDE [address] [facility] [place] [address] [facility] [address] [phone] [place], [place] [address] (Wo rk) Social History Tobacco [...] on filedocumented in this encounter Care Teams Burner Operator Relationship Specialty Start Date End Date Allison Granados APRN PCP - General 04/22/14 06/27/[address] [facility] [address] [place] [address] documented as of this encounter
--- OUTSIDE RECORDS SUMMARY | 2021-12-28 04:07 | XMS_ITS | Encounter Summary ---
:1950 Author Organization [facility] [place] [address] Care Team Providers Name Role Phone Kerwin Pineda Primary Care Provider Reason for Visit Reason Onset Date Comments Prior Authorization 09/21/2021 Solifenacin Succinat e 5MG tablets Encounter Details Date Type Department Care Team Description 09/21/2021 Telephone Internal Medicine at Jeannette Springer CMA Diana or Authorization [facility] (Solifenacin Succinate [address] [facility] 5MG ta blets/) [place], [place] [id number] Social History Tobacco Use Types Packs/Day Years [...] this encounter Miscellaneous Notes Telephone Encounter - Jeannette Springer CMA - 09/21/2021 8:07 AM EDT Medication Prior Authorization for Primary Care Approved: Solifenacin Succinate 5MG tablets Start Date: 08/22/2021 End Date: 09/21/2022 Case/Reference #: [id number] See Approval Letter in scanned documents. Additional Notes: Telephone Encounter - Jeannette Springer CMA - 09/21/2021 8:00 AM EDT Medication Prior Authorization Request received via: Pharmacy Patient: Elida Montez Patient : 1950 Insurance Company: [employer] Sent via: [employer] Ereves: [id number] Physician: CANDELARIO Oswald Medication Requested: solifenacin (VESICARE) 5 mg Tablet Frequency/Sig: take 2 tablets by mouth daily Disp: 180 Refills: 3 Currently taking: yes If yes, how lon06/2021 Diagnosis for this medication: Urinary frequency (R35.0) Prior medications trialed in this patient: Medication: oxybutynin Approx Dates: [id number] Outcome/Adverse Reactions: inadequate response Medication: mirabegron Approx Dates: 2015 Outcome/Adverse Reactions: inadequate response Additional Notes: documented in this encounter Plan of Treatment Not on filedocumented as of this encounter Visit Diagnoses Not on filedocumented in this encounter Care Teams Refueling Ramp Supervisor Relationship Specialty Start Date End Date Kerwin Pineda PA PCP - General Internal Medicine 06/28/21 [facility] [place] [address] documented as of this encounter
--- OUTSIDE RECORDS SUMMARY | 2021-12-28 04:07 | XMS_ITS | Encounter Summary ---
:1950 Author Organization [facility] [place] [address] Care Team Providers Name Role Phone Allison Granados APRN Primary Care Provider [phone] Reason for Visit Reason Onset Date Comments Results 03/02/2020 Encounter Details Date Type Department Care Team Description 03/02/2020 Telephone [facility] Lida Mckeon, [place] [address] Social History Tobacco Use Types Packs/Day [...] this encounter Miscellaneous Notes Telephone Encounter - Lida Grissom RN - 03/02/2020 8:23 AM EDT Telephone call to pt to inform pt of NEGATIVE Covid-19 test results. Pt verbalizes understanding and will contact healthcare provider if any concerns or requires furthercare. documented in this encounter Plan of Treatment Not on filedocumented as of this encounter Visit Diagnoses Not on filedocumented in this encounter Care Teams Tare Worker Relationship Specialty Start Date End Date Allison Granados APRN PCP - General 04/22/14 06/27/[address] [facility] [address] [place] [address] documented as of this encounter
--- OUTSIDE RECORDS SUMMARY | 2021-12-28 04:07 | XMS_ITS | Encounter Summary ---
:1950 Author Organization [facility] Address [address] [place] [address] Care Team Providers Name Role Phone Allison Granados APRN Primary Care Provider [phone] Reason for Visit Reason Comments Follow-up New concern - pain in right axillary area - chintan when she lays down at night Encounter Details Date Type Department Care Team Description 02/28/2021 Office Visit Internal Medicine Allison Granados tenderness in female; at [address] SOILA Rain Restless leg syndrome; [address] [facility] Gastroesophage al reflux disease, unspecified whether esophagitis present [place] [address] GENERAL INTERNAL [phone] [facility] [place], [place] [address] Social History Tobacco Use Types [...] Sign Reading Time Taken Comments Blood Pressure 104/56 02/28/2021 10:49 AM EDT Pulse 83 02/28/2021 10:49 AM EDT Temperature 36.8 ??C (98.3 ??F) 02/28/2021 10:49 AM EDT Respiratory Rate - - Oxygen Saturation 98% 02/28/2021 10:49 AM EDT Inhaled Oxygen - - Concentration Weight 59.1 kg (130 lb 3.2 02/28/2021 10:49 oz) AM EDT Height 154.9 cm (5' 1) 02/28/2021 10:49 approx - patie nt AM EDT reported Body Mass Index 24.6 02/28/2021 10:49 AM EDT documented in this encounter Progress Notes Allison Granados APRN - 02/28/2021 11:00 AM EDT Images from the original note were not included. PCP: Allison Granados APRN Chief Complaint Patient presents with ??? Follow-up New concern - pain in right axillary area - chintan when she lays down at night SUBJECTIVE: Elida Montez is a 70 y.o. female who presents for pain in her right arm pit lateral breast. She reports that she noticed a pain with lying on her right side or when she presses on the area. She is not aware of any injury to the area. She denies any breast changes, no breast discharge or skin lesions. - she has noticed more sweats. She will wake with hair sweaty. She does have AC. She has not had anyunexplained weight loss. GERD- it has its moments. She reports that she will vomit at times. She will have intermittent vomiting she will feel alright. She was seen by Dr. Rosa in the past. She is on nexium and famotidine. Colitis- it has its moments RLS- doing well on requip. Sometimes she has to take them earlier in the day, but they work for her. Mood- doing alright on the prozac. Review of Systems Constitutional: Positive for diaphoresis. Negative for chills and fever. Allergies Allergen Reactions ??? Codeine Nausea And Vomiting ??? Unable To Find [Unclassified Drug] Seasonal Current Outpatient Medications Medication Sig Dispense Refill ??? UNABLE TO FIND Take 1 capsule by mouth daily. Neuriva Plus Probiotic powder ??? ascorbic acid, vitamin C, (VITAMIN C) 500 mg Tablet, Chewable Take 500 mg by mouth daily. ??? fluticasone propionate (FLONASE) 50 mcg/actuation [place], Suspension 1 spray by Each Nare route daily. 16 g 12 ??? fluticasone propion-salmeteroL (Advair Diskus) 250-50 mcg/dose Disk with Device Inhale 1 puff into the lungs 2 times daily. 3 Inhaler 3 ??? atorvastatin (Lipitor) 20 mg Tablet Take 1 tablet by mouth daily. 90 tablet 3 ??? oxybutynin XL (Ditropan-XL) 5 mg Tablet Extended Rel 24 hr Take 1 tablet by mouth daily. 180 tablet 3 ??? rOPINIRole (Requip) 1 mg Tablet Take 3 tablets by mouth nightly. 270 tablet 3 ??? FLUoxetine (PROzac) 20 mg Tablet Take 1 tablet by mouth daily. 90 tablet 3 ??? albuteroL (Ventolin HFA) 90 mcg/actuation HFA Aerosol Inhaler Inhale 2 puffs into the lungs every 6 hours as needed for Wheezing. Use with spacer 1 Inhaler 3 ??? baclofen (Lioresal) 10 mg Tablet [...] for Muscle spasms. 30 tablet 0 ??? hyoscyamine (LEVSIN) 0.125 mg Tablet Take [...] B37.81 ??? Hiatal hernia K44.9 OBJECTIVE: Vitals: 02/28/21 1049 BP: 104/56 BP Location (NBP): Left arm Patient Position: Sitting BP Cuff Sizes: Adult (25-34 cm) Pulse: 83 Temp: 36.8 ??C (98.3 ??F) TempSrc: Oral SpO2: 98% Weight: 59.1 kg (130 lb 3.2 oz) Height: 154.9 cm (5' 1) PHYSICAL EXAM: Physical Exam Constitutional: Appearance: She is well-developed. HENT: Head: Normocephalic and atraumatic. Eyes: General: No scleral icterus. Conjunctiva/sclera: Conjunctivae normal. Pulmonary: Effort: Pulmonary effort is normal. Chest: Breasts: No discharge from either breast. Breasts are symmetrical. Right: Tenderness present. Left: Tenderness present. Skin: General: Skin is warm and dry. Neurological: Mental Status: She is alert and oriented to person, place, and time. Psychiatric: Behavior: Behavior normal. Thought Content: Thought content normal. Judgment: Judgment normal. ASSESSMENT & PLAN: Elida was seen today for follow-up . Diagnoses and all orders for this visit: Breast tenderness in female - Mammo Diagnostic CAD and Ernesto Bilateral; Future - US Breast Limited Bilat; Future Restless leg syndrome - doing well, continue on requip Gastroesophageal reflux disease, unspecified whether esophagitis present - continue on current medications, recommend follow up with GI if continues documented in this encounter Plan of Treatment Not on filedocumented as of this encounter Results US Breast Limited Bilat (03/02/2021 9:40 AM EDT) Anatomical Region Laterality Modality Breast Bilateral Mammography Specimen (Source) Anatomical Location Collection Method / Collectio n Time Received Time / Laterality Volume Impressions 03/02/2021 9:54 AM EDT No mammographic or directed ultrasound evidence of malignancy with attention to the 2 areas of focal tenderness in the r ight breast. Incidental benign simple cyst left upper outer quadrant. Advise c linical follow-up and continue annual mammographic screening. BI-RADS Category 2: Benign Findings * ??Regular screening mammograms startin g between age 40 and 50 reduces the risk of from breast cancer. * ??All screening tests have both risks and benefits. These risks and benefits should be assessed for each individual p atient through discussion with their provider to determine their preferred br east cancer screening schedule. * ??Women should report any breast johnson es to a health care provider right away. * ??Some women, because of their family history, a genetic tendency, or other factors, should be screened with annual breast MRI as well as with mammograms. (The number of women who fall into this category is very small). Patients and health care providers should discuss the history of each patient to decide if earlier screening and/or breast MRI are appropriate. * ??Screening should continue as long as a woman is in good health and is expected to live 10 years or longer. * ??Screening mammography may not detect 10-15% of breast cancers. Thank you for letting us participate in the care of this patient. ??If you are a health care provider and have any questi ons regarding this report, please contact the number below. ??For patients who have questions please contact the health personal care home administrator that requested your imaging first. ? Electronically signed by: Shirin johns MD, [facility] ([phone]), at 03/02/2021 9:54 AM Narrative 03/02/2021 9:54 AM EDT EXAMINATION: MAMMO DIAGNOSTIC CAD AND ERNESTO BILATERAL, US ??BREAST LIMITED BILATERAL CLINICAL HISTORY: Tenderness in right br east, on exam she had focal tenderness at 4 oclock about 3 cm from nipple on le ft side. TECHNIQUE: CC and MLO views were obtained of each b reast. 2-D and 3- D tomosynthesis images were obtained. Computer aided detection was used. Directed ultrasound was performed bilaterally. Additional diagno stic imaging was performed of the right lower inner quadrant using spot compress ion CC and spot compression true lateral views. COMPARISON: This study was compared with prior image s. FINDINGS: The breasts are heterogeneously dense, w hich may obscure small masses. There is a circumscribed mass in the left upper o uter quadrant middle third measuring 1.2 cm. Diffuse bilateral calcifications are identified. There is no developing asymmetry. Bilateral ultrasound: Directed ultrasoun d of the right breast 4:00 radian 3 cm from the nipple and 6:00 radian 1 cm fro m the nipple demonstrate no evidence of discrete solid lesion, abnormal acoustic al shadowing, or cyst. Directed ultrasound of the mammographic lesion in the left upper outer quadrant depicts an anechoic well-circumscribed mass with posterior enhancement consistent with a benign simple cyst. This is at the 1:00 radian 5 cm from the nipple measuring 0.9 cm. Allison Granados APRN [place] MAMMO ORDERABLES Mammo Diagnostic CAD and Ernesto Bilateral (03/02/2021 9:05 AM EDT) Anatomical Region Laterality Modality Breast Bilateral Mammography Specimen (Source) Anatomical Location Collection Method / Collectio n Time Received Time / Laterality Volume Impressions 03/02/2021 9:54 AM EDT No mammographic or directed ultrasound evidence of malignancy with attention to the 2 areas of focal tenderness in the r ight breast. Incidental benign simple cyst left upper outer quadrant. Advise c linical follow-up and continue annual mammographic screening. BI-RADS Category 2: Benign Findings * ??Regular screening mammograms startin g between age 40 and 50 reduces the risk of from breast cancer. * ??All screening tests have both risks and benefits. These risks and benefits should be assessed for each individual p atient through discussion with their provider to determine their preferred br east cancer screening schedule. * ??Women should report any breast johnson es to a health care provider right away. * ??Some women, because of their family history, a genetic tendency, or other factors, should be screened with annual breast MRI as well as with mammograms. (The number of women who fall into this category is very small). Patients and health care providers should discuss the history of each patient to decide if earlier screening and/or breast MRI are appropriate. * ??Screening should continue as long as a woman is in good health and is expected to live 10 years or longer. * ??Screening mammography may not detect 10-15% of breast cancers. Thank you for letting us participate in the care of this patient. ??If you are a health care provider and have any questi ons regarding this report, please contact the number below. ??For patients who have questions please contact the health personal care home administrator that requested your imaging first. ? Electronically signed by: Shirin johns MD, [facility] ([phone]), at 03/02/2021 9:54 AM Narrative 03/02/2021 9:54 AM EDT EXAMINATION: MAMMO DIAGNOSTIC CAD AND ERNESTO BILATERAL, US ??BREAST LIMITED BILATERAL CLINICAL HISTORY: Tenderness in right br east, on exam she had focal tenderness at 4 oclock about 3 cm from nipple on le ft side. TECHNIQUE: CC and MLO views were obtained of each b reast. 2-D and 3- D tomosynthesis images were obtained. Computer aided detection was used. Directed ultrasound was performed bilaterally. Additional diagno stic imaging was performed of the right lower inner quadrant using spot compress ion CC and spot compression true lateral views. COMPARISON: This study was compared with prior image s. FINDINGS: The breasts are heterogeneously dense, w hich may obscure small masses. There is a circumscribed mass in the left upper o uter quadrant middle third measuring 1.2 cm. Diffuse bilateral calcifications are identified. There is no developing asymmetry. Bilateral ultrasound: Directed ultrasoun d of the right breast 4:00 radian 3 cm from the nipple and 6:00 radian 1 cm fro m the nipple demonstrate no evidence of discrete solid lesion, abnormal acoustic al shadowing, or cyst. Directed ultrasound of the mammographic lesion in the left upper outer quadrant depicts an anechoic well-circumscribed mass with posterior enhancement consistent with a benign simple cyst. This is at the 1:00 radian 5 cm from the nipple measuring 0.9 cm. Allison Granados APRN IMG MAMMO ORDERABLES documented in this encounter Visit Diagnoses Diagnosis Breast tenderness in female Mastodynia Restless leg syndrome Restless legs syndrome (RLS) Gastroesophageal reflux disease, unspeci fied whether esophagitis present Breast tenderness in female Mastodynia Breast tenderness in female Mastodynia documented in this encounter Care Teams [employer] Relationship Specialty Start Date End Date Allison Granados, SOILA PCP - General 04/22/14 06/27/[address] [facility] [place] [address] documented as of this encounter
--- OUTSIDE RECORDS SUMMARY | 2021-12-28 04:07 | XMS_ITS | Encounter Summary ---
:1950 Author Organization [facility] Address [address] [place] [address] Care Team Providers Name Role Phone Allison Granados APRN Primary Care Provider [phone] Reason for Referral Physical Therapy (Routine) - Closed Specialty Diagnoses / Procedures Referred By Contact Refer red To Contact Diagnoses Cervical strain, acute, subsequent encounter Alilson Granados Physical [facility], [facility] [address] [facility] [place] [address] [place] [address] Referral ID Status Reason Start Date Expiration Date Visits V isits Requested Authorized [id number] Closed Evaluate and 12/20/2019 06/17/2020 10 10 Treat Reason for Visit Reason Comments Gastroesophageal Reflux F/u on Gerd and restless leg s. Neck issue. Encounter Details Date Type Department Care Team Description 12/20/2019 Office Visit Internal Medicine at Allison Granados rain of neck muscle, initial encounter; Renny Rain APRN Cervical strain, acute, subsequent encou nter [address] [place] [address] GENERAL INTERNAL [phone] [place] [address] (Wo rk) Social History Tobacco Use [...] Sign Reading Time Taken Comments Blood Pressure 126/69 12/20/2019 1:25 PM EDT Pulse 60 12/20/2019 1:25 PM EDT Temperature 36.7 ??C (98.1 ??F) 12/20/2019 1:25 PM EDT Respiratory Rate 18 12/20/2019 1:25 PM EDT Oxygen Saturation 100% 12/20/2019 1:25 PM EDT Inhaled Oxygen Concentration - - Weight 59 kg (130 lb) 12/20/2019 1:25 PM EDT Height - - Body Mass Index 25.18 09/02/2019 8:49 AM EST documented in this encounter Patient Instructions Patient InstructionsAllison Granados APRN - 12/20/2019 1:30 PM EDT Images from the original note were not included. For the neck pain, I recommend tylenol 1000 mg every 8 hours. I recommend heat to the area for 15 minutes at a time 2-3 times per day. Patient Education Neck Strain: Care Instructions Your Care Instructions You have strained the muscles and ligaments in your neck. A sudden, awkward movement can strain the neck. This often occurs with falls or car accidents or during certain sports. Everyday activities like working on a computer or sleeping can also cause neck strain if they force you to hold your neck inan awkward position for a long time. It is common for neck pain to get worse for a day or two after an injury, but it should start to feel better after that. You may have more pain and stiffness for several days before it gets better. This is expected. It may take a few weeks or longer for it to heal completely. Good home treatment can help you get better faster and avoid future neck problems. Follow-up care is a camacho part of your treatment and safety. Be sure to make and go to all appointments, and call your doctor if you are having problems. It's also a good idea to know your test results and keep a list of the medicines you take. How can you care for yourself at home? ?? If you were given a neck brace (cervical collar) to limit neck motion, wear it as instructed for as many days as your doctor tells you to. Do not wear it longer than you were told to. Wearing a brace for too long can make neck stiffness worse and weaken the neck muscles. ?? You can try using heat or ice to see if it helps. ? Try using a heating pad on a low or medium setting for 15 to 20 minutes every 2 to 3 hours. Try a warm shower in place of one session with the heating pad. You can also buy single-use heat wraps thatlast up to 8 hours. ? You can also try an ice pack for 10 to 15 minutes every 2 to 3 hours. ?? Take pain medicines exactly as directed. ? If the doctor gave you a prescription medicine for pain, take it as prescribed. ? If you are not taking a prescription pain medicine, ask your doctor if you can take an fjts-suw-qylizzw medicine. ?? Gently rub the area to relieve pain and help with blood flow. Do not massage the area if it hurtsto do so. ?? Do not do anything that makes the pain worse. Take it easy for a couple of days. You can do your usual activities if they do not hurt your neck or put it at risk for more stress or injury. ?? Try sleeping on a special neck pillow. Place it under your neck, not under your head. Placing a tightly rolled-up towel under your neck while you sleep will also work. If you use a neck pillow or rolled towel, do not use your regular pillow at the same time. ?? To prevent future neck pain, do exercises to stretch and strengthen your neck and back. Learn howto use good posture, safe lifting techniques, and proper body mechanics. When should you call for help? [id number] anytime you think you may need emergency care. For example, call if: ?? You are unable to move an arm or a leg at all. Call your doctor now or seek immediate medical care if: ?? You have new or worse symptoms in your arms, legs, chest, belly, or buttocks. Symptoms may include: ? Numbness or tingling. ? Weakness. ? Pain. ?? You lose bladder or bowel control. Watch closely for changes in your health, and be sure to contact your doctor if: ?? You are not getting better as expected. Where can you learn more? Visit our [employer] information library at [email or web address] You can also view health information on [employer], your personal patient account. Log in or sign up today. Enter M253 in the search box to learn more about Neck Strain: Care Instructions. Current as of: September 06, 2019?Content Version: 12.5 ?? [employer]. Care instructions adapted under license by [facility]. If you have questions about a medical condition or this instruction, always ask your healthcare professional. [employer] disclaims any warranty or liability for your use of this information. Patient Education Neck Strain or Sprain: Rehab Exercises Introduction Here are some examples of exercises for you to try. The exercises may be suggested for a condition or for rehabilitation. Start each exercise slowly. Ease off the exercises if you start to have pain. You will be told when to start these exercises and which ones will work best for you. How to do the exercises Neck rotation 1. Sit in a firm chair, or stand up straight. 2. Keeping your chin level, turn your head to the right, and hold for 15 to 30 seconds. 3. Turn your head to the left and hold for 15 to 30 seconds. 4. Repeat 2 to 4 times to each side. Neck stretches 1. Look straight ahead, and tip your right ear to your right shoulder. Do not let your left shoulderrise up as you tip your head to the right. 2. Hold for 15 to 30 seconds. 3. Tilt your head to the left. Do not let your right shoulder rise up as you tip your head to the left. 4. Hold for 15 to 30 seconds. 5. Repeat 2 to 4 times to each side. Forward neck flexion 1. Sit in a firm chair, or stand up straight. 2. Bend your head forward. 3. Hold for 15 to 30 seconds. 4. Repeat 2 to 4 times. Lateral (side) bend strengthening 1. With your right hand, place your first two fingers on your right sikhism. 2. Start to bend your head to the side while using gentle pressure from your fingers to keep your head from bending. 3. Hold for about 6 seconds. 4. Repeat 8 to 12 times. 5. Switch hands and repeat the same exercise on your left side. Forward bend strengthening 1. Place your first two fingers of either hand on your forehead. 2. Start to bend your head forward while using gentle pressure from your fingers to keep your head from bending. 3. Hold for about 6 seconds. 4. Repeat 8 to 12 times. Neutral position strengthening 1. Using one hand, place your fingertips on the back of your head at the top of your neck. 2. Start to bend your head backward while using gentle pressure from your fingers to keep your head from bending. 3. Hold for about 6 seconds. 4. Repeat 8 to 12 times. Chin tuck 1. Lie on the floor with a rolled-up towel under your neck. Your head should be touching the floor. 2. Slowly bring your chin toward your chest. 3. Hold for a count of 6, and then relax for up to 10 seconds. 4. Repeat 8 to 12 times. Follow-up care is a camacho part of your treatment and safety. Be sure to make and go to all appointments, and call your doctor if you are having problems. It's also a good idea to know your test results and keep a list of the medicines you take. Where can you learn more? Visit our health information library at [email or web address] You can also view health information on Ye[employer], your personal patient account. Log in or sign up today. Enter M679 in the search box to learn more about Neck Strain or Sprain: Rehab Exercises. Current as of: September 06, 2019?Content Version: 12.5 ?? [employer]. Care instructions adapted under license by [facility]. If you have questions about a medical condition or this instruction, always ask your healthcare professional. [employer] disclaims any warranty or liability for your use of this information. documented in this encounter Progress Notes Allison Granados APRN - 12/20/2019 1:30 PM EDT PCP: Allison Granados APRN Chief Complaint Patient presents with ??? Gastroesophageal Reflux F/u on Gerd and restless legs. Neck issue. SUBJECTIVE: Elida Montez is a 69 y.o. female with history of asthma, anxiety, RLS, IBS, and GERD who presentsfor follow up on RLS and GERD. She also has a question about ongoing neck pain. Neck pain- started about a week ago. She was seen at [facility] on 12/18/2019 for ongoing radiating neck pain on the left side. She reports that it hurts to move her neck up or down or side to side. No known injury or trauma. She reports that she had CT done in the ED and it was negative. She did fall at home, but that was after the pain had already been bad. She has been taking the flexeril that she was given in the ED and that did not seem to help. No radiation of symptoms down his arm. She has tried iceand heat to the area. It is not getting better. Leg pain- along achilles and will go to bottom of her foot. She thinks that it will make her RLS in that leg worse. She has not tried treatment. Not worse with getting out of a chair or walking around. Review of Systems Constitutional: Negative for chills and fever. Respiratory: Positive for cough (chronic, related to allergies). Negative for shortness of breath. Cardiovascular: Negative for chest pain and palpitations. Musculoskeletal: Positive for myalgias and neck pain. Negative for gait problem. Allergies Allergen Reactions ??? Codeine Nausea And Vomiting ??? Unable To Find [Unclassified Drug] Seasonal Current Outpatient Medications Medication Sig Dispense Refill ??? rOPINIRole (Requip) 1 mg Tablet Take 3 tablets by mouth nightly. 270 tablet 3 ??? fluticasone propion-salmeteroL (Advair Diskus) 250-50 mcg/dose Disk with Device Inhale 1 puff into the lungs 2 times daily. 3 Inhaler 3 ??? FLUoxetine (PROzac) 20 mg Tablet Take 1 tablet by mouth daily. 90 tablet 3 ??? albuterol (Ventolin HFA) 90 mcg/actuation HFA Aerosol Inhaler Inhale 2 puffs into the lungs every 6 hours as needed for Wheezing. Use with spacer 1 Inhaler 3 ??? famotidine (Pepcid) 40 mg Tablet Take 1 tablet by mouth 2 times daily. (Patient taking differently: Take 40 mg by mouth daily.) 60 tablet 3 ??? baclofen (LIORESAL) 10 mg Tablet Take 1 tablet by mouth 2 times daily. 180 tablet 3 ??? oxybutynin (DITROPAN-XL) 5 mg Tablet Extended Rel 24 hr Take 2 tablets by mouth daily. 180 tablet 3 ??? fluticasone propionate (FLONASE) 50 mcg/actuation Willard, Suspension 1 spray by Each Nare route [...] B37.81 ??? Hiatal hernia K44.9 OBJECTIVE: Vitals: 12/20/19 1325 BP: 126/69 BP Location (NBP): Left arm Patient Position: Sitting BP Cuff Sizes: Adult (25-34 cm) Pulse: 60 Resp: 18 Temp: 36.7 ??C (98.1 ??F) TempSrc: Temporal SpO2: 100% Weight: 59 kg (130 lb) PHYSICAL EXAM: Physical Exam Vitals signs reviewed. Constitutional: General: She is not in acute distress. Appearance: She is well-developed. HENT: Head: Normocephalic and atraumatic. Eyes: Conjunctiva/sclera: Conjunctivae normal. Cardiovascular: Rate and Rhythm: Normal rate and regular rhythm. Heart sounds: Normal heart sounds. No murmur. Pulmonary: Effort: Pulmonary effort is normal. Breath sounds: Normal breath sounds. No wheezing or rales. Chest: Chest wall: No tenderness. Musculoskeletal: Cervical back: She exhibits decreased range of motion, tenderness and pain. She exhibits no bony tenderness. Left lower leg: She exhibits no tenderness, no bony tenderness and no swelling. Comments: No achilles tenderness or bursa tenderness. Skin: General: Skin is warm and dry. Neurological: Mental Status: She is alert and oriented to person, place, and time. Psychiatric: Behavior: Behavior normal. Thought Content: Thought content normal. Judgment: Judgment normal. ASSESSMENT & PLAN: Elida was seen today for gastroesophageal reflux. Diagnoses and all orders for this visit: Strain of neck muscle, initial encounter - referral to PT Cervical strain, acute, subsequent encounter - Referral to Physical Therapy - cyclobenzaprine (Flexeril) 10 mg Tablet; Take 1 tablet by mouth 3 times daily as needed for Musclespasms. - for the leg pain, discussed stretching and exercises. documented in this encounter Plan of Treatment Scheduled Referrals Name Type Priority Associated Diagnoses Order S chedule Referral to Outpatient Referral Routine Cervical strain, Orde red: Physical Therapy acute, subsequent 2019 encounter documented as of this encounter Visit Diagnoses Diagnosis Strain of neck muscle, initial encounter documented in this encounter Care Teams Community Service Coordinator Relationship Specialty Start Date End Date Allison Granados APRN PCP - General 04/22/14 06/27/21 [facility] [place] [address] documented as of this encounter
--- OUTSIDE RECORDS SUMMARY | 2021-12-28 04:07 | XMS_ITS | Encounter Summary ---
:1950 Author Organization [facility] [place] [address] Care Team Providers Name Role Phone Allison Granados APRN Primary Care Provider [phone] Reason for Visit Reason Comments Annual Wellness Visit Other runny nose and sneezing, ? d ue to allergies or her asthma Encounter Details Date Type Department Care Team Description 06/13/2021 Office Visit Internal Medicine at [facility] for annual wellness exam in Medicare patient; Renny Teague APRN Age-related osteoporosis without current pathological fracture; [address] [facility] Gastroesophage al reflux disease, unspecified whether esophagitis present; [facility] Mild intermittent asthma, unspecified wh ether complicated; [place] [address] GERIATRIC Urinary frequency [phone] [place], [place] [id number] Social History Tobacco Use Types Packs/Day Years [...] Sign Reading Time Taken Comments Blood Pressure 122/73 06/13/2021 8:58 AM EST Pulse 66 06/13/2021 8:58 AM EST Temperature 37 ??C (98.6 ??F) 06/13/2021 8:58 AM EST Respiratory Rate - - Oxygen Saturation 100% 06/13/2021 8:58 AM EST Inhaled Oxygen Concentration - - Weight 60.1 kg (132 lb 9.6 oz) 06/13/2021 8:58 AM EST Height 153.3 cm (5' 0.35) 06/13/2021 8:58 AM EST Body Mass Index 25.59 06/13/2021 8:58 AM EST documented in this encounter Patient Instructions Patient InstructionsHelen Tatum APRN - 06/13/2021 9:00 AM EST It as good to meet you! Today we discussed changing two medicines - Advair for your asthma/breathing - starting a new dose of the medicine. Same instructions - one pufftwice a day. Make sure to rinse your mouth afterward at least if not brusing! And then for urinary frequency/dribbling - STOP the Ditropan (oxybutnin). Start the Vesicare tablet the next day. Let me know how it's helping after about two to three weeks. documented in this encounter Progress Notes Helen Tatum APRN - 06/13/2021 9:00 AM EST MEDICARE ANNUAL WELLNESS VISIT Ms. Elida Montez, a 70 y.o. female, presents today for a Medicare Annual Wellness Visit. CURRENT PROVIDERS & SUPPLIERS REGULARLY INVOLVED IN PROVIDING MEDICAL CARE Patient Care Team: Allison Granados APRN (Inactive) as PCP - General [x] Ms. Montez did not identify any Suppliers of Medical Equipment. Patient seen today as interim PCP, with several concerns discussed as follow: Left breast - cyst is still painful to touch, but not waking up in pain with it. Sleep is disturbed - 5 hours of sleep a night. Been like this for a long time. Has as a hard time staying asleep, denies frequent urination at night. R thumb - pain with movement, is still able to do her needlecraft GERD - not vomiting as much. Pressure in middle of chest x months, but she thinks this is related toher asthma acting up. Asthma - using Advair daily as prescribed. Going outside seems to trigger feeling more SOB, is usingalbuterol daily and has been for months. Agrees to increase in Advair to see if this helps overall symptoms. Urinary leakage - with walking, sneezing. Oxybutnin doesn't really help. Constipation - takes Miralax TID and this seems to control it. Family hx - mom with osteoporosis. 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 Her client lives with Elida in her home. Likes to quilt, is very good. PROBLEM LIST, MEDICAL, SURGICAL & FAMILY HISTORY Patient Active Problem List Diagnosis Code ??? [...] infection, esophageal B37.81 ??? Hiatal hernia K44.9 Past Medical History: Diagnosis Date ??? Asthma ??? GERD (gastroesophageal reflux disease) Past Surgical History: Procedure Laterality Date ??? CATARACT REMOVAL ??? CHOLECYSTECTOMY, LAPAROSCOPIC ??? EYE SURGERY macular hole ??? PRO COLONOSCOPY, DIAGNOSTIC N/A 07/31/2018 COLONOSCOPY, DIAGNOSTIC performed by Isaiah Cee MD at [facility] ??? PRO UPPER GI ENDOSCOPY, BIOPSY N/A 03/02/2019 EGD WITH BIOPSY (WRVU 2.49) performed by Tariq Lindo MD at [facility] ??? PRO UPPER GI ENDOSCOPY, BIOPSY N/A 10/13/2020 EGD WITH BIOPSY (WRVU 2.49) performed by Amarilys Pérez MD at [facility] ??? PRO UPPER GI ENDOSCOPY, DIAGNOSTIC N/A 12/25/2015 EGD, UPPER GI ENDOSCOPY performed by Jeff Schneider MD at [facility] ??? TONSILLECTOMY AND ADENOIDECTOMY Family History Relation Problem Age of Onset ??? Brother Hypertension ??? Father Coronary Artery Disease age 67 ??? Maternal Aunt Cancer ??? Maternal Aunt Cancer ??? Maternal Grandfather Esophageal Cancer ??? Maternal Grandmother Coronary Artery Disease ??? Mother Asthma Cerebrovascular Accident Coronary Artery Disease Gallbladder Disease Hyperlipidemia ??? Neg Hx Type 2 Diabetes ??? Paternal Uncle Lung Cancer ??? Sister Other myasthenia gravis MEDICATIONS, SUPPLEMENTS & ALLERGIES Medications 06/13/21 0931 Medication Sig Taking? famotidine (Pepcid) 40 mg Tablet Take 1 tablet by mouth 2 times daily. Yes UNABLE TO FIND Take 1 capsule by mouth daily. Neuriva Plus Probiotic powder Yes ascorbic acid, vitamin C, (VITAMIN C) 500 mg Tablet, Chewable Take 500 mg by mouth daily. Yes fluticasone propionate (FLONASE) 50 mcg/actuation [place], Suspension 1 spray by Each Nare route [...] needed for Wheezing. Use with spacer Yes baclofen (Lioresal) 10 mg Tablet Take 1 tablet by mouth 2 times daily. Yes esomeprazole (NexIUM) 40 mg Capsule, Delayed Release(E.C.) Take 1 capsule by mouth 2 times daily. Yes cyclobenzaprine (Flexeril) 10 mg Tablet Take 1 tablet by mouth 3 times daily as needed for Muscle spasms. Yes hyoscyamine (LEVSIN) 0.125 mg Tablet Take 1 tablet by mouth every 6 hours as needed for Cramping. Yes fluticasone propion-salmeteroL (ADVAIR) 500-50 mcg/dose Disk with Device Inhale 1 puff into the lungs every 12 hours. solifenacin (VESICARE) 5 mg Tablet Take 2 tablets by mouth daily. Allergies Allergen Reactions ??? Codeine Nausea And Vomiting ??? Unable To Find [Unclassified Drug] Seasonal [x] Ms. Montez did not identify any supplements, including calcium and vitamins. ADVANCE DIRECTIVES Advance Directives (Y or N): Y HEALTH RISK ASSESSMENT (HRA) myD-H Annual Wellness Visit Responses 06/13/2021 Health in general Good Quality of life Very Good Physical health Good Mental health Good Satisfaction with social activities Very Good Ability to carry out social activities Very Good Ability to carry out physical activities Completely Bothered by emotional problems Rarely Rate of fatigue Moderate Rate of pain 4 PROMIS-10 Physical Health Score 44.9 PROMIS-10 Mental Health Score 50.8 Hearing Loss Yes Activity - low level (Bathing, Dressing, Eating, Mobility, Using toilet, Grooming) No, I do not havedifficulty with these activities Activity - high level (Laundry, Housekeeping, Banking, Shopping, Use phone, Food Prep, Transportation, Taking meds) No, I do not have difficulty with these activities Fallen in last year No Difficulties with balance or walking No Injured as a result of a fall No Walkways free of cords/clutter Yes Smoke detectors in house Yes Difficulty walking 1/4 mile No or some difficulties Difficulty climbing a flight of stairs No or some difficulties Involuntarily lost > 10 pounds No Feel everything is an effort/could not get going Rarely or sometimes (2 times or less/week) Physical activity level Regular physical activity (at least 2-4 hours per week) Disability Score (FiND) 0 (Robust) Little interest or pleasure Not at all Down, depressed, hopeless Not at all Feel lonely or isolated Rarely Have money for everyday living Yes Confident in managing health problems Very confident Confident filling medical forms Extremely Medication finances No Smoking Status Never Drinking frequency Monthly or less Drinks per day 0 drinks 6+ drinks on one occasion Never Audit-C Score 1 (Low Risk) 10 mins of vigorous physical activity 7 days Time spent on vigorous physical activity 30 minutes 10 mins of moderate physical activity - Time spent on moderate physical activity 30 minutes Eat Fruit 1 - 3 times per day Eat Vegetables 1 - 3 times per day Wear Seatbelt Always Tooth or Mouth Problems No Urinary Incontinence Yes Sexually active Yes Live Alone No School Some college or technical school Employment Status Currently working Hours per week 40 or more hours Combined Household Income $20,000 to less than $25,000 # People Supported 3 Who is taking survey I am (patient) VITAL SIGNS Visit Vitals BP 122/73 (BP Location (NBP): Left arm, Patient Position: Sitting, BP Cuff Sizes: Adult (25-34 cm)) Pulse 66 Temp 37 ??C (98.6 ??F) (Oral) Ht 153.3 cm (5' 0.35) Wt 60.1 kg (132 lb 9.6 oz) SpO2 100% BMI 25.59 kg/m?? PHYSICAL: General: Alert, Ox person,situation, place, time female in NAD, appropriately groomed and dressed. HEENT: AT/NC. EOMI, sclerae clear and free of exudate. No lymphadenopathy. MMM, edentulous. No lesions. HEART: RRR, no murmurs/rubs. LUNGS: Good inspiratory effort, no rales/crackles. Lungs sounds clear. Abdomen: Soft, NT, +BS : Deferred. Extremities: No edema. Able to [id number] in <3 seconds. Skin: soft, moist, intact. Left auricle of ear with 1 cm round lesion, fluctuant, most like burn. Psych: Calm and cooperative. NEURO: RETAIL SERVICE REPRESENTATIVE 2-12 grossly intact, no tremor DEPRESSION SCREENING PHQ9 Questionnaires Data (Clinic and Pt Entered): last 4 values of depression scores No flowsheet data found. PHQ-9 QUESTIONNAIRE SCORE ONLY (Clinic) 10/30/2015 11/03/2015 12/13/2015 11/03/2017 PHQ - 9 Score (Clinic) 0 (No Depression) 0 (No Depression) 0 (No Depression) 3 (Minimal Depression) Some recent data might be hidden * A score of 5 or greater indicates a need for referral. MOBILITY ASSESSMENT [x] Ms. Montez did not identify any mobility issues in the Health Risk Assessment. [] Ms. Montez did identify a mobility issues in the Health Risk Assessment. HEARING ASSESSMENT [x] Ms. Montez passed the whisper voice test or finger rub test. [] Ms. Montez did not pass the whisper voice test of finger rub test. MENTAL STATUS ASSESSMENT - did not assess, good fount of distant and recent history with insight into medical and social/psychological needs with low suspicion for cognitive impairment. SCREENING SCHEDULE & IMMUNIZATIONS Health Maintenance Topic Date Due ??? Zoster vaccine (2 of 3) 11/30/2012 ??? Breast Cancer screening 03/02/2023 ??? Colonoscopy 07/31/2028 ??? Tetanus vaccine 10/09/2028 ??? Pneumo vaccine (65+) Completed ??? Bone Density Scan Completed ??? Hepatitis C Screening Completed ??? Influenza (Flu) vaccine Completed ??? Covid-19 Vaccine Completed ??? Tdap adult Completed Popular services typically covered by Medicare Part B for patients 65 and older (may be more frequent in high risk patients) Vaccinations Hepatitis B (series) Influenza (yearly) Pneumococcal (one of each) Screening Abdominal Aortic Aneurysm* Alcohol misuse* Bone density (q 2 years)* Cardiovascular - Lipids (q 5 years) Cardiovascular - Behavioral therapy (q year) Cervical & vaginal cancer (women q 2 years) Colorectal cancer - Colonoscopy (q 10 years) Depression (q year) Diabetes (q 6 months)*^ Diabetes self-management training*^ Hep C - [id number] (once) HIV (once)* Lung cancer (q year)* Mammograms (q year) Nutritional therapy services* Obesity screening & counseling - BMI > 30* Prostate-Specific Antigen (q year) Sexually transmitted infections (q year)* Tobacco use cessation counseling (8 visits / 12 months) https://www.medicare.gov/coverage/zpqemxtrrp-jgn-unbcufdyq-services.html * Restrictions may apply ^ Part B deductible and 20% co-pay may apply Ms. Montez was seen today for a Medicare Annual Wellness Visit. In conclusion, we discussed the followin. Encounter for annual wellness exam in Medicare patient see above for Wellness comments. 2. Age-related osteoporosis without current pathological fracture - discussed needing to repeat DXA in October 2021. Completed Boniva in 10/2019, last DX 05/2018 on chart review. 3. Gastroesophageal reflux disease, unspecified whether esophagitis present - hx of hiatal hernia, needs to continue on PPI. 4. Mild intermittent asthma, unspecified whether complicated - will Increase Advair to high dose. Ifineffective, would repeat PFT and perhaps pulm referral. - fluticasone propion-salmeteroL (ADVAIR) 500-50 mcg/dose Disk with Device; Inhale 1 puff into the lungs every 12 hours. Dispense: 1 each; Refill: 12 5. Urinary frequency - will do trial of Vesicare, stop oxybutnin. Patient agreed to plan, update in a month. - solifenacin (VESICARE) 5 mg Tablet; Take 2 tablets by mouth daily. Dispense: 30 tablet; Refill: 3 ? [x] A copy of the Risk Factors and Personalized Health Advice, Assessment and Plan and Health Maintenance List was copied to the patient's After Visit Summary. documented in this encounter Plan of Treatment Not on filedocumented as of this encounter Visit Diagnoses Diagnosis Encounter for annual wellness exam in [place] [facility] patient Age-related osteoporosis without current pathological fracture Senile osteoporosis Gastroesophageal reflux disease, unspeci fied whether esophagitis present Mild intermittent asthma, unspecified wh ether complicated Urinary frequency documented in this encounter Care Teams Flat Lock Operator Relationship Specialty Start Date End Date Allison Garnados APRN PCP - General 04/22/14 06/27/[address] [facility] [address] [place] [address] documented as of this encounter
--- OUTSIDE RECORDS SUMMARY | 2021-12-28 04:07 | XMS_ITS | Encounter Summary ---
:1950 Author Organization [facility] [place] [address] Care Team Providers Name Role Phone Allison Granados APRN Primary Care Provider [phone] Encounter Details Date Type Department Care Team Description 03/02/2021 [place] [facility] [place] Granados Breast tenderness [facility] [place] Rain in female [address] [place], [place] [address] GENERAL INTERNAL [phone] [place], [place] [address] Social History Tobacco Use Types [...] Sig Dispensed Refills Start Date End Date UNABLE TO FIND Take 1 capsule by mouth daily. Neuriva Plus 0 Probiotic powder ascorbic acid, vitamin C, Take 500 mg by 0 (VITAMIN C) 500 mg mouth daily. Tablet, Chewable fluticasone propionate 1 spray by Each 16 g 12 12/29/19 21 (FLONASE) 50 Nare route daily. mcg/actuation [place], Suspension atorvastatin (Lipitor) 20 Take 1 tablet by 90 tablet 3 11/05 mg Tablet mouth daily. albuteroL (Ventolin HFA) Inhale 2 puffs 1 Inhaler 3 021 90 mcg/actuation HFA into the lungs Aerosol Inhaler every 6 hours as needed for Wheezing. Use with spacer hyoscyamine (LEVSIN) Take 1 tablet by 30 tablet 5 8 0.125 mg mouth every 6 TabletIndications: LLQ hours as needed abdominal pain for Cramping. fluticasone Inhale 1 puff into 3 Inhaler 3 12/28/202006/13 propion-salmeteroL the lungs 2 times (Advair Diskus) 250-50 daily. mcg/dose Disk with Device oxybutynin XL Take 1 tablet by 180 tablet 3 11/23/202006/13 (Ditropan-XL) 5 mg Tablet mouth daily. Extended Rel 24 hr rOPINIRole (Requip) 1 mg Take 3 tablets by 270 tablet 3 10/0610/26/2021 Tablet mouth nightly. FLUoxetine (PROzac) 20 mg Take 1 tablet by 90 tablet 3 10/0610/26/2021 Tablet mouth daily. baclofen (Lioresal) 10 mg Take 1 tablet by 180 tablet 3 07/0708/03/2021 Tablet mouth 2 times daily. esomeprazole (NexIUM) 40 Take 1 capsule by 180 capsule 3 04/202008/03/2021 mg Capsule, Delayed mouth 2 times Release(E.C.) daily. famotidine (Pepcid) 40 mg Take 1 tablet by 180 tablet 3 04/0705/17/2021 Tablet mouth 2 times daily. cyclobenzaprine Take 1 tablet by 30 tablet 0 12/20/201904/2022 (Flexeril) 10 mg Tablet mouth 3 times daily as needed for Muscle spasms. documented as of this encounter Plan of Treatment Not on filedocumented as of this encounter Procedures Procedure Name Priority Date/Time Associated Diagnosis Comme nts MAMMO BREAST US Routine 03/02/2021 9:40 AM Breast tenderness i n Results for this LIMITED BILATERAL EDT female procedure are in the results section. documented in this encounter Results US Breast Limited Bilat [...] with their provider to determine their preferred [facility] cancer screening schedule. * ??Women should report [...] who have questions please contact the health residential caregiver that requested your imaging first. ? Narrative 03/02/2021 9:54 AM EDT EXAMINATION: MAMMO DIAGNOSTIC CAD AND JIHAN BILATERAL, US ??BREAST LIMITED BILATERAL CLINICAL HISTORY: [...] Diagnoses Diagnosis Breast tenderness in female Mastodynia documented in this encounter Care Teams Conveyor Feeder Relationship Specialty Start Date End Date Allison Granados APRN PCP - General 04/22/14 06/27/21 [facility] [place] [address] documented as of this encounter
--- OUTSIDE RECORDS SUMMARY | 2021-12-28 04:07 | XMS_ITS | Encounter Summary ---
:1950 Author Organization [facility] [place] [address] Care Team Providers Name Role Phone Kerwin Pineda Primary Care Provider Reason for Visit Reason Onset Date Comments Medication Refill 01/25/2021 Encounter Details Date Type Department Care Team Description 01/25/2021 Refill Internal Medicine at [facility] [address] Gutierrez [place] [facility] [place] [address] RD [phone] [place], [place] [address] (Wo rk) Social History Tobacco [...] on filedocumented in this encounter Care Teams Drafter Geological Relationship Specialty Start Date End Date Kerwin Pineda PA PCP - General Internal Medicine 06/28/21 [facility] [place] [address] documented as of this encounter
--- OUTSIDE RECORDS SUMMARY | 2021-12-28 04:07 | XMS_ITS | Encounter Summary ---
:1950 Author Organization [facility] [place] [address] Care Team Providers Name Role Phone Allison Granados APRN Primary Care Provider [phone] Reason for Visit Reason Onset Date Comments Medication Refill 04/29/2020 Encounter Details Date Type Department Care Team Description 04/29/2020 Refill Internal Medicine at [place] Allison Murphy, CORE SETTER [address] [facility] DR Gutierrez [facility] [place] [address] RD [phone] [place], [place] [address] (Wo rk) Social History Tobacco [...] on filedocumented in this encounter Care Teams Industrial Tractor Driver Relationship Specialty Start Date End Date Allison Granados, SOILA PCP - General 04/22/14 06/27/[address] [facility] [address] [place] [address] documented as of this encounter
--- OUTSIDE RECORDS SUMMARY | 2021-12-28 04:07 | XMS_ITS | Encounter Summary ---
:1950 Author Organization [facility] [place] [address] Care Team Providers Name Role Phone Allison Hector APRN Primary Care Provider [phone] Reason for Referral Consultation (Routine) - Closed Specialty Diagnoses / Procedures Referred By Contact Refer red To Contact Gastroenterology Diagnoses Gastroesophageal reflux disease, unspecified whether esophagitis present Allison Hector [facility] Endoscopy [address] [place], [place] [phone] [facility] [place] [address] Referral ID Status Reason Start Date Expiration Date Visits V isits Requested Authorized [id number] Closed Test Only 08/07/2020 08/07/2021 1 1 Reason for Visit Reason Comments Other Dry throat with occasional r eally thick mucus that she coughs up; no improvement in acid reflux/a silvina indigestion Encounter Details Date Type Department Care Team Description 08/07/2020 Office Visit Internal Medicine Allison Hector oesophageal reflux disease, unspecified whether esophagitis present; at [facility] SOILA Rain Low ferritin level; [address] [facility] Elevated TSH; [facility] History of thyroid nodule; [place] [address] GENERAL INTERNAL Restless leg syndrome; [phone] Screening for diabetes mellitus; [place], [place] [address] Screening cholesterol level Social History Tobacco Use Types Packs/Day Years [...] Sign Reading Time Taken Comments Blood Pressure 126/59 08/07/2020 9:05 AM EST Pulse 51 08/07/2020 9:05 AM EST Temperature 36.3 ??C (97.3 ??F) 08/07/2020 9:05 AM EST Respiratory Rate - - Oxygen Saturation 100% 08/07/2020 9:05 AM EST Inhaled Oxygen - - Concentration Weight 58.1 kg (128 lb) 08/07/2020 9:05 AM EST Height 153.7 cm (5' 0.5) 08/07/2020 9:05 AM approx - p atient EST reported Body Mass Index 24.59 08/07/2020 9:05 AM EST documented in this encounter Patient Instructions Patient InstructionsLaAllison jackson APRN - 08/07/2020 9:30 AM EST Thank you for visiting the [facility] today. Here's a summary of what we discussed : - please decrease oxybutynin to 10 mg daily from 15 mg daily to see if the dry mouth improves. documented in this encounter Progress Notes Allison Hector APRN - 08/07/2020 9:30 AM EST PCP: Allison Hector APRN Chief Complaint Patient presents with ??? Other Dry throat with occasional really thick mucus that she coughs up; no improvement in acid reflux/acid indigestion SUBJECTIVE: Elida Dinh is a 69 y.o. female who presents for follow up on GERD and food getting stuck in herthroat. She reports that about twice a week she feels that food gets stuck in her upper esophagus. She gets lots of indegestion, and at times it feels worse and she will vomit. It is not always after eating. She was treated for eosinophilic esophagitis after her last visit and she did not feel that ithelps. She will cough at times and have thick mucus. She has had dry mouth as well. Review of Systems Constitutional: Negative for chills and fever. HENT: Positive for trouble swallowing. Respiratory: Negative for cough and shortness of breath. Gastrointestinal: Positive for abdominal distention and abdominal pain. Allergies Allergen Reactions ??? Codeine Nausea And Vomiting ??? Unable To Find [Unclassified Drug] Seasonal Current Outpatient Medications Medication Sig Dispense Refill ??? baclofen (Lioresal) 10 mg Tablet Take 1 tablet by mouth 2 times daily. 180 tablet 3 ??? esomeprazole (NexIUM) 40 mg Capsule, Delayed Release(E.C.) Take 1 capsule by mouth 2 times daily. 180 capsule 3 ??? albuteroL (Ventolin HFA) 90 mcg/actuation HFA Aerosol Inhaler Inhale 2 puffs into the lungs every 6 hours as needed for Wheezing. Use with spacer 1 Inhaler 3 ??? oxybutynin XL (Ditropan-XL) 5 mg Tablet Extended Rel 24 hr Take 3 tablets by mouth daily. 180 tablet 3 ??? famotidine (Pepcid) 40 mg Tablet Take 1 tablet by mouth 2 times daily. 180 tablet 3 ??? cyclobenzaprine (Flexeril) 10 mg Tablet Take 1 tablet by mouth 3 times daily as needed for Muscle spasms. 30 tablet 0 ??? rOPINIRole (Requip) 1 mg Tablet Take 3 tablets by mouth nightly. 270 tablet 3 ??? fluticasone propion-salmeteroL (Advair Diskus) 250-50 mcg/dose Disk with Device Inhale 1 puff into the lungs 2 times daily. 3 Inhaler 3 ??? FLUoxetine (PROzac) 20 mg Tablet Take 1 tablet by mouth daily. 90 tablet 3 ??? fluticasone propionate (FLONASE) 50 mcg/actuation [place], Suspension 1 spray by Each Nare route [...] B37.81 ??? Hiatal hernia K44.9 OBJECTIVE: Vitals: 08/07/20 0905 BP: 126/59 BP Location (NBP): Left arm Patient Position: Sitting BP Cuff Sizes: Adult (25-34 cm) Pulse: 51 Temp: 36.3 ??C (97.3 ??F) TempSrc: Oral SpO2: 100% Weight: 58.1 kg (128 lb) Height: 153.7 cm (5' 0.5) PHYSICAL EXAM: Physical Exam Constitutional: Appearance: She is well-developed. HENT: Head: Normocephalic and atraumatic. Eyes: Conjunctiva/sclera: Conjunctivae normal. Cardiovascular: Rate and Rhythm: Normal rate and regular rhythm. Heart sounds: Normal heart sounds. Pulmonary: Effort: Pulmonary effort is normal. Breath sounds: Normal breath sounds. Abdominal: General: Bowel sounds are normal. There is no distension. Palpations: Abdomen is soft. There is no mass. Tenderness: There is no abdominal tenderness. There is no guarding or rebound. Skin: General: Skin is warm and dry. Findings: No rash. Psychiatric: Behavior: Behavior normal. Thought Content: Thought content normal. Judgment: Judgment normal. ASSESSMENT & PLAN: Elida was seen today for other. Diagnoses and all orders for this visit: Gastroesophageal reflux disease, unspecified whether esophagitis present - REFERRAL TO ENDOSCOPY PROCEDURE - difficulty with swallowing at times. Will do repeat endoscopy and continue on PPI at this time. Low ferritin level - Ferritin; Future - Ferritin Elevated TSH - TSH; Future - TSH History of thyroid nodule - US Thyroid Soft Tissue; Future - TSH; Future - TSH - review of chart shows that she is due for repeat u/s, will check labs today as well. Restless leg syndrome - CBC (with Diff); Future - Vitamin B12; Future - Ferritin; Future - Ferritin - Vitamin B12 - CBC (with Diff) - Hemogram - Differential, Automated - will recheck labs today, continue on requip Screening for diabetes mellitus - CMP w/fasting Glucose; Future - CMP w/fasting Glucose Screening cholesterol level - Lipid Panel (Reflex Direct LDL); Future - Lipid Panel (Reflex Direct LDL) Other orders- she was having some dry mouth, will have her decrease ditropan to see if symptoms improve - oxybutynin XL (Ditropan-XL) 5 mg Tablet Extended Rel 24 hr; Take 2 tablets by mouth daily. - level 2 mask, and face shield were worn during the entire visit and gloves were worn during physical exam. documented in this encounter Plan of Treatment Scheduled Referrals Name Type Priority Associated Diagnoses Order S chedule REFERRAL TO Outpatient Routine Gastroesophageal reflux Orde red: ENDOSCOPY Referral disease, unspecified 021 PROCEDURE whether esophagitis present documented as of this encounter Procedures Procedure Name Priority Date/Time Associated Diagnosis Comme nts HC FERRITIN, SERUM Routine 08/07/2020 4:55 PM Restless leg Res ults for this EST syndrome procedure are in Low ferritin level the resul ts section. HC VITAMIN B12 SERUM Routine 08/07/2020 4:55 PM Restless leg R esults for this EST syndrome procedure are i n the results section. CMP W/FASTING GLUCOSE Routine 08/07/2020 10:18 Screening for R esults for this AM EST diabetes mellitus procedure are in the results section. HEMOGRAM Routine 08/07/2020 10:18 Restless leg Results for this AM EST syndrome procedure are i n the results section. DIFFERENTIAL, Routine 08/07/2020 10:18 Restless leg Results fo r this AUTOMATED AM EST syndrome procedure are i n the results section. HC CBC,PLT & AUTO Routine 08/07/2020 10:18 Restless leg DIFF AM EST syndrome HC VENIPUNCTURE Routine 08/07/2020 10:18 Elevated TSH Results for this AM EST History of thyroid procedure are in nodule the results section. LIPID PANEL (REFLEX Routine 08/07/2020 10:18 Screening Resu lts for this DIRECT LDL) AM EST cholesterol level procedure are in the results section. documented in this encounter Results US Thyroid Soft Tissue (08/11/2020 1:13 PM EST) Anatomical Region Laterality Modality Pelvis Ultrasound Specimen (Source) Anatomical Collection Method Collection Time Re ceived Time Location / / Volume Laterality 08/11/2020 1:13 PM EST Impressions 08/11/2020 1:26 PM EST [employer] TI- RADS Thyroid Nodule [...] recommended (not necessarily the largest). ??Journal of [employer] 2017;14:587-595 Right Nodule [...] 01:25 pm) PATIENT INFO: ID #: ? [id number] ?: ??[birth year] (69 yrs)(F) Name: ? ELIDA Link ALLEGRA ?Visit Date: 08/11/2020 01:13 pm PERFORMED BY: Performed By: ? Angel Lloyd RDMS Attending: ?Giuliano Farrell MD Referred By: ?ALLISON HECTOR Location: ? [place] SERVICE(S) PROVIDED: ??UTHYRD - TI-RADS - [id number] ?[id number] INDICATIONS: ??history thyroid nodule, recommended r epeat ??u/s, last was in 2018. COMPARISON: Ultrasound: Thyroid 08/20/17 RIGHT LOBE: ??Date ? L(cm) ? AP(cm) ? TV(cm) ??08/11/20 ? 3.1 ? 1.7 ?1.6 ??08/20/17 ? 3.7 ? 1.5 ?1.5 ??06/10/16 ? 3.5 ? 1.7 ?1.8 -------- Lesions: -------- ??# ?Date ?Location ?Description ??1 ?08/11/20 ?Mid Lobe ?Solid or almost completely ? solid (2) Hyperechoic or ? isoechoic (1) Wider-than- ? tall (0) Smooth (0 points) ? None or large comet tail ? artifacts (0) ??1 ?02/14/18 ?Mid Lobe ?Solid or almost completely ? solid (2) Hyperechoic or ? isoechoic (1) Wider-than- ? tall (0) Smooth (0 points) ? None or large comet tail ? artifacts (0) ??1 ?12/05/16 ?Mid Lobe ?Iso- to hypoechoic, well ? circumscribed, peripheral ? vascularity ??2 ?08/11/20 ?Superior Lobe ? Solid or almost completely [...] (1) ? Hyperechoic or isoechoic ? (1) Ggprp-jsai-trpm (0) ? Smooth (0 points) None or ? large comet tail artifacts (0) ??1 ?12/05/16 ?Mid Lobe ?Well-circumscribed, solid ? with cystic components, ? peripheral vascularity ??2 ?02//21 ?Inferior Lobe ? Spongiform (0), ? Hyperechoic or isoechoic ? (1), Wbila-woih-fupz (0), ? Smooth (0 points), None ? or large comet tail artifacts ? (0), ??2 ?02/14/18 ?Mid Lobe ?Solid or almost completely ? solid (2) Very hypoechoic ? (3) Ecomf-gkyy-kqzl (0) ? Smooth (0 points) None or [...] 08/11/2020 01:25 pm) PATIENT INFO: ID #: [id number] : [birth year] (69 y rs)(F) Name: ELIDA DINH Visit Date: 08/11 01:13 pm PERFORMED BY: Performed By: Angel Lloyd RDMS Attending: Marco Farrell MD Referred By: ALLISON HECTOR Location: [place] SERVICE(S) PROVIDED: UTHYRD - TI-RADS - [id number] INDICATIONS: history thyroid nodule, recommended rep eat u/s, last was in 2017. COMPARISON: Ultrasound: [...] so lid (1) Hyperechoic or isoechoic (1) Wxzzx-vzlr-zwlu (0) Smooth (0 points) None or large comet tail artifacts (0) 1 06/10/16 Mid Lobe Well-circumscribed, solid with cystic components, peripheral vascularity 2 08/11/20 Inferior Lobe Spongiform (0) , Hyperechoic or isoechoic (1), Ktact-kfjc-kglw (0), Smooth (0 points), None or large comet tail artifacts (0), 2 08/20/17 Mid Lobe Solid or almost com pletely solid (2) Very hypoechoic (3) Lwbef-nchj-gbmi (0) Smooth (0 points) None or large [...] or morphologically ab normal lymph nodes. IMPRESSION [employer] TI- RADS Thyroid Nodule [...] recommended (not necessarily the largest). Journal [employer] 2017;14:587-595 Right Nodule [...] Allison Hector APRN IMG US GEN ORDERABLES Ferritin (08/07/2020 4:55 PM EST) athologist Signature Ferritin 249 30 - 400 [facility] ng/mL [facility] Comment: Pediatric reference ranges not verified at [facility], interpret with caution. Reference ranges for females greater celine n 50 years of age approach values for men, i.e., 30-400 ng/mL. Specimen Anatomical Collection Method Collection Time Receive d Time (Source) Location / / Volume Laterality Blood specimen 08/07/2020 4:55 PM 021 7:09 (specimen) EST PM EST Resulting Agency Comment Spec In Lab Allison Hector APRN CHEMISTRY ORDERABLES Performing Organization Address City/[facility]/ZIP Code Phon e Number [address] Vitamin B12 (08/07/2020 4:55 PM EST) P athologist Signature Vitamin B-12 463 232 - 1,245 [facility] Specimen Anatomical Collection Method Collection Time Receive d Time (Source) Location / / Volume Laterality Blood specimen 08/07/2020 4:55 PM 021 7:09 (specimen) EST PM EST Resulting Agency Comment Spec In Lab Allison Hector APRN CHEMISTRY ORDERABLES Performing Organization Address City/[facility]/ZIP [facility] [place] Ph[place] Number [address] (ABNORMAL) Differential, Automated (08/07/2020 10:18 AM EST) Patholo gist Method Time Signature Neutrophils % 46.8 % [facility] LABORATORY Neutr Abs (ANC) 3.46 1.70 - [facility] 6.10 [facility] x10(3)/[facility] LABORATORY Lymphocytes % 30.8 % [facility]ORY Lymphocytes Abs 2.3 0.9 - 3.2 [facility] x10(3)/[facility] LABORATORY Monocytes % 13.3 % [facility] LABOR[facility]ORY Monocyte Abs 1.0 (H) 0.3 - 0.9 [facility] x10(3)/[facility] LABORATORY Eosinophils % 7.2 % [facility] LABORATORY Eosinophils Abs 0.5 (H) 0.0 - 0.4 [facility] x10(3)/[facility] LABORATORY Basophils % 1.4 % [facility] Basophils Abs 0.1 0.0 - 0.1 [facility] x10(3)/[facility] LABORATORY Immature Gran % 0.50 % [facility] Comment: Immature granulocytes(IG's)percentage an d absolute count will include metamyelocytes, myelocytes, and promyelo cytes. Blood smears from CBCs yielding IG's will be scanned manually for concor dance. If this scan disagrees with the automated IG or if promyelocytes are not ed, a manual differential will be performed. Zena Gran Abs 0.04 0.00 - 0.04 x10(3)/[facility] MAR Y [facility] LABORATORY Specimen Anatomical Collection Method Collection Time Receive d Time (Source) Location / / Volume Laterality Blood specimen 08/07/2020 10:18 7:08 (specimen) AM EST PM EST Resulting Agency Comment Spec In Lab Allison Hector APRN HEMATOLOGY ORDERABLES Performing Organization Address City/State/ZIP [place] [address] Hemogram (08/07/2020 10:18 AM EST) P athologist Signature WBC 7.4 4.0 - 9.5 [facility] x10(3)/[facility] LABORATORY RBC 4.92 4.00 - [place] CORKY 5.21 [facility] x10(6)/[facility] LABORATORY Hemoglobin 14.4 11.7 - [facility] 15.5 gm/dL [facility] Hematocrit 45.0 35.7 - [facility] CORKY 45.8 % [facility] LABORATORY MCV 91.5 82.6 - [facility] 94.4 [facility] LABORATORY MCH 29.3 27.1 - [place] 32.0 pg [facility] MCHC 32.0 31.7 - [facility] 35.0 gm/dL [facility] Platelets 290 145 - 357 [facility] x10(3)/[facility] RDWSD 44.4 37.0 - [facility] CORKY 46.0 [facility] RDWCV 13.2 11.5 - [facility] CORKY 14.1 % [facility] LABORATORY MPV 10.6 7.6 - 12.9 [facility] LABORATORY nRBC % Auto 0.0 % [facility] LABORATORY nRBC Abs Auto 0.000 0.000 - [facility] 0.000 [facility] x10(3)/[facility] LABORATORY Specimen Anatomical Collection Method Collection Time Receive d Time (Source) Location / / Volume Laterality Blood specimen 08/07/2020 10:18 1 7:08 (specimen) AM EST PM EST Resulting Agency Comment Spec In Lab Allison Hector [place] HEMATOLOGY ORDERABLES Performing Organization Address City/[facility]/ZIP Code Phon e Number [address] TSH (08/07/2020 10:18 AM EST) P athologist Signature TSH 1.66 0.27 - 4.20 [facility] mcIU/mL [facility] Specimen Anatomical Collection Method Collection Time Receive d Time (Source) Location / / Volume Laterality Blood specimen 08/07/2020 10:18 1 7:08 (specimen) AM EST PM EST Resulting Agency Comment Spec In Lab Allison Rain Roberta [place] CHEMISTRY ORDERABLES Performing Organization Address City/[facility]/ZIP Code Phon e Number [address] Lipid Panel (Reflex Direct LDL) (08/07/2020 10:18 AM EST) P athologist Signature Chol, Total 249 mg/dL [facility] Comment: Lower Risk: <200 mg/dL Average Risk: 200-239 mg/dL Higher Risk: >xb=903 mg/dL Triglycerides 136 mg/dL [facility] Comment: Average Risk/Lower Risk: <150 mg/dL Borderline High Risk: 150-199 mg/dL High Risk: 200-499 mg/dL Very High Risk: >tf=740 mg/dL HDL 47 mg/dL [facility] Comment: Males: ?? Higher Risk: <40 mg/dL Females: ?? HIgher Risk: <50 mg/dL LDL Cholesterol 175 mg/dL [facility] Comment: Lowest Risk: <100 mg/dL Lower Risk: 100-129 mg/dL Borderline High Risk: 130-159 mg/dL High Risk: 160-189 mg/dL Very High Risk: >ck=873 mg/dL Chol/HDL Ratio 5.3 ratio [facility] Lipid Interpretation See Note [facility] Comment: Lipid management should be guided by a p atient? s ASCVD risk, goals and preferences. ACC/AHA Guidelines recommend high intens ity statin if clinical ASCVD or LDL greater than or equal to 190 mg/dL. [email or web address] Adults aged 40-75 with LDL 70-189 mg/dL should have their 10 year ASCVD risk estimated with the ACC/AHA ASCVD risk es timator http://tools.acc.org/GXBQM-Zkul-Mozwmqwn r/ Statin should be discussed if risk great er than or equal to 7.5% in non-diabetics. With diabetes, moderate i ntensity statin is recommended if risk less than 7.5%, high intensity if risk g reater than or equal to 7.5%. Annual lipid monitoring on statins is no t necessary. Evaluate secondary causes of Triglycerid es greater than 500 mg/dL or LDL greater than 190 mg/dL: See table 6 of A CC/AHA Guideline. Lifestyle modification is a critical com ponent of ASCVD risk reduction. Specimen Anatomical Collection Method Collection Time Receive d Time (Source) Location / / Volume Laterality Blood specimen 08/07/2020 10:18 7:08 (specimen) AM EST PM EST Resulting Agency Comment Spec In Lab Allison Hector APRN CHEMISTRY ORDERABLES Performing Organization Address City/State/ZIP [place] [address] (ABNORMAL) CMP w/fasting Glucose (08/07/2020 10:18 AM EST) athologist Signature Glucose 94 65 - 99 [facility] Fasting mg/dL [facility] Comment: ?Fasting* Glucose Interpretive C riteria Normal ?65-99 mg/dL Impaired Fasting glucose ?100-125 mg/dL Consistent with Diabetes Mellitus ? >or= 126 mg/dL *Fasting is defined as no caloric intake for at least 8 hours In the absence of unequivocal hypergly cemia a plasma glucose value of >or= 126 mg/dL should be repeated on a subseq uent day. Diagnosis and Classification of Diabetes Mellitus, Position Statement from the [place] [employer]. ??Diabete s Care, Volume 33, Supplement 1, Jul 2009 BUN 15 8 - 18 mg/dL [facility] Creatinine 0.66 (L) 0.70 - 1.20 mg/dL [facility] Sodium 139 135 - 145 mmol/L [facility] Potassium 4.3 3.5 - 5.0 mmol/L [facility] Comment: Please note: ??Patients with WBC >100,00 0 may have falsely elevated Potassium levels. ??For accurate Potassium quantif ication in these patients send serum separator tube (gold top) for subsequent determinations. ??Contact the Clinical Chemistry Laboratory if there are any qu estions. Chloride 105 98 - 107 mmol/L [facility] CO2 28 22 - 31 mmol/L [facility] Anion Gap 6 5 - 15 mmol/L [facility] Calcium 9.1 8.5 - 10.5 mg/dL [facility] Total Protein 6.8 6.1 - 8.0 gm/dL [facility] Albumin 4.6 3.2 - 5.2 gm/dL [facility] AST 26 0 - 30 unit/L [facility] ALT 34 (H) 0 - 30 unit/L [facility] Alk Phos 97 35 - 105 unit/L [facility] Total Bilirubin 0.9 0.2 - 1.3 mg/dL [facility] Estimated GFR 89 >=60 mL/min/1.73 m?? [facility] Comment: This patient? s estimated glomerular filtration rate (eGFR) is between 89 mL/min/1.73 m2 (patients with less muscl e mass) and 103 mL/min/1.73 m2 (patients with more muscle mass) as dete rmined by the CKD-EPI equation. Assessment of eGFR is not appropriate wh en creatinine concentrations are rapidly changing. For clinical decisions where creatinine clearance will affect therapy, a 24-hour urine creatinine kristian maxime may be advised. Assignment of CKD stage 1 ? 5 for patients with an eGFR near the transition point between stages may be based on cli nical assessment of muscle mass and symptoms in addition to eGFR. Specimen Anatomical Collection Method Collection Time Receive d Time (Source) Location / / Volume Laterality Blood specimen 08/07/2020 10:18 7:08 (specimen) AM EST PM EST Resulting Agency Comment Spec In Lab Allison Hector APRN CHEMISTRY ORDERABLES Performing Organization Address City/State/ZIP [place] [address] documented in this encounter Visit Diagnoses Diagnosis Gastroesophageal reflux disease, unspeci fied whether esophagitis present Low ferritin level Other nonspecific findings on examinatio n of blood Elevated TSH Other abnormal blood chemistry History of thyroid nodule Personal history of other endocrine, met abolic, and immunity disorders Restless leg syndrome Restless legs syndrome (RLS) Screening for diabetes mellitus Screening cholesterol level Screening for lipoid disorders History of thyroid nodule Personal history of other endocrine, met abolic, and immunity disorders documented in this encounter Care Teams Hand Washer Relationship Specialty Start Date End Date Allison Hector APRN PCP - General 04/22/14 06/27/[address] [facility] [address] [place] [address] documented as of this encounter
--- OUTSIDE RECORDS SUMMARY | 2021-12-28 04:07 | XMS_ITS | Encounter Summary ---
:1950 Author Organization [place] [address] Care Team Providers Name Role Phone Allison Granados APRN Primary Care Provider Reason for Referral Consultation (Routine) - Closed Specialty Diagnoses / Procedures Referred By Contact Refer red To Contact Gastroenterology Diagnoses Gastroesophageal reflux disease, unspecified whether esophagitis present Allison Granados [facility] 4t CIVIL ENGINEERING SPECIALIST [facility] INTERNAL [place], [place] [phone] [facility] [place] [address] Referral ID Status Reason Start Date Expiration Date Visits V isits Requested Authorized [id number] Closed Test Only 06/05/2020 06/05/2021 1 1 Reason for Visit Reason Comments Annual Wellness Visit Same concerns as always (art hritic pain has been getting worse) Encounter Details Date Type Department Care Team Description 06/05/2020 Office Visit Internal Medicine Allison Granados Medic are annual wellness visit, subsequent (Primary Dx); at [address] [place] Encounter for screening mammogram for br east cancer; [facility] [place] [facility] reflux disease, unspecified whether esophagitis present; [facility] [place] [address] GENERAL INTERNAL [phone] [place], [place] [address] Social History Tobacco Use Types Packs/Day [...] Sign Reading Time Taken Comments Blood Pressure 123/75 06/05/2020 9:49 AM EST Pulse 60 06/05/2020 9:49 AM EST Temperature 36.1 ??C (97 ??F) 06/05/2020 9:49 AM EST Respiratory Rate - - Oxygen Saturation 99% 06/05/2020 9:49 AM EST Inhaled Oxygen Concentration - - Weight 59.5 kg (131 lb 3.2 oz) 06/05/2020 9:49 AM EST Height 152.9 cm (5' 0.2) 06/05/2020 9:49 AM EST Body Mass Index 25.46 06/05/2020 9:49 AM EST documented in this encounter Progress Notes Katy Conrad Y - 06/05/2020 10:00 AM EST Established Patient Visit Internal Medicine - [facility] Subjective: Elida Montez is a pleasant 69 y.o. female who presents for her annual wellness exam. Elida statesthat she has been struggling more recently with GERD and regurgitation of her food. She states that she sometimes has a single episode of vomiting immediately after eating, but that this can occur after any food. She denies noticing blood in her vomit, and states that the contents appears to be what she just consumed. She does not notice bad breath or regurgitation of old food contents. She denies any burning or pain, but often feels as though she is gagging. She also describes some difficulty swallowing, occasional globus, and feeling as though food is getting stuck in upper throat, which causes her to choke. She also describes an occasional cough that appears to be worse at night. At present, she is taking famotidine and alkaseltzer for these symptoms, but only experiences some relief. Elida notes episodes abdominal pain that occur a few times a week and last anywhere from 1-2 hours, consistent with her history of IBS. She experiences some relief with bowel movements (both constipation and diarrhea) or taking hyoscyamine if necessary. She also notes that her asthma seems to be worse this year, and notes that she takes her home advairand uses albuterol as needed. However, she has recently needed to use albuterol a few times per day and requires a refill. She also states that her long-standing incontinence has been worse over the past few months. She experiences loss of urine ears pad when she coughs, sneezes, or walks, and also describes feeling urgency. She states that she now requires daily use of a pad, which was not previously the case. She takes oxybutynin twice per day as prescribed, but feels that it is not providing as much relief. Review of Systems: (Pertinent positives indicated with a +) Gen - no fevers, no chills, no sweats, no weight loss, +fatigue Eyes - no new vision changes HEENT - as documented above Neck - right sided swelling in submandibular area Heart - no chest pain nor palpitations Lungs - , no hemoptysis, nor pleuritic pain GI - as documented above - no dysuria, +worsening incontinence Skin - no rashes, no itching, no hives, nor suspicious lesions Past Medical History: Past Medical History: Diagnosis Date ??? Asthma ??? GERD (gastroesophageal reflux disease) Medications Reviewed and Updated: Current Outpatient Medications: ??? famotidine (Pepcid) 40 mg Tablet, Take 1 tablet by mouth 2 times daily., Disp: 180 tablet, Rfl: 3 ??? cyclobenzaprine (Flexeril) 10 mg Tablet, Take 1 tablet by mouth 3 times daily as needed for Muscle spasms., Disp: 30 tablet, Rfl: 0 ??? rOPINIRole (Requip) 1 mg Tablet, Take 3 tablets by mouth nightly., Disp: 270 tablet, Rfl: 3 ??? fluticasone propion-salmeteroL (Advair Diskus) 250-50 mcg/dose Disk with Device, Inhale 1 puff into the lungs 2 times daily., Disp: 3 Inhaler, Rfl: 3 ??? FLUoxetine (PROzac) 20 mg Tablet, Take 1 tablet by mouth daily., Disp: 90 tablet, Rfl: 3 ??? albuterol (Ventolin HFA) 90 mcg/actuation HFA Aerosol Inhaler, Inhale 2 puffs into the lungs every 6 hours as needed for Wheezing. Use with spacer, Disp: 1 Inhaler, Rfl: 3 ??? baclofen (LIORESAL) 10 mg Tablet, Take 1 tablet by mouth 2 times daily., Disp: 180 tablet, Rfl: 3 ??? oxybutynin (DITROPAN-XL) 5 mg Tablet Extended Rel 24 hr, Take 2 tablets by mouth daily., Disp: 180 tablet, Rfl: 3 ??? fluticasone propionate (FLONASE) 50 mcg/actuation [place], Suspension, 1 spray by Each Nare route daily., Disp: 16 g, Rfl: 12 ??? hyoscyamine (LEVSIN) 0.125 mg Tablet, Take 1 tablet by mouth every 6 hours as needed for Cramping., Disp: 30 tablet, Rfl: 5 Allergies: Allergies Allergen Reactions ??? Codeine Nausea And Vomiting ??? Unable To Find [Unclassified Drug] Seasonal Family History: Family History Problem Relation Age of Onset ??? Cerebrovascular Accident Mother ??? Coronary Artery Disease Mother ??? Asthma Mother ??? Gallbladder Disease Mother ??? Hyperlipidemia Mother ??? Coronary Artery Disease Father age 67 ??? Hypertension Brother ??? Cancer Maternal Aunt ??? Coronary Artery Disease Maternal Grandmother ??? Other Sister myasthenia gravis ??? Lung Cancer Paternal Uncle ??? Cancer Maternal Aunt ??? Esophageal Cancer Maternal Grandfather ??? Type 2 Diabetes Neg Hx Social History: Social History Tobacco Use ??? Smoking status: Never Smoker ??? Smokeless tobacco: Never Used Substance Use Topics ??? Alcohol use: Yes Comment: 1 glass of wine/month ??? Drug use: No Social History Social History Narrative She lives with her . Son and granddaughter lives next door. 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 She has a sister with history of Myasthenia Gravis. She lives in [place], [place]. Objective: BP 123/75 (BP Location (NBP): Left arm, Patient Position: Sitting, BP Cuff Sizes: Adult (25-34 cm)) Pulse 60 Temp 36.1 ??C (97 ??F) (Temporal) Ht 152.9 cm (5' 0.2) Wt 59.5 kg (131 lb 3.2 oz) SpO2 99% BMI 25.46 kg/m?? Wt Readings from Last 3 Encounters: 06/05/20 59.5 kg (131 lb 3.2 oz) 12/20/19 59 kg (130 lb) 09/02/19 56.2 kg (123 lb 14.4 oz) Physical Examination General - No acute distress, alert, cooperative,conversing without difficulty, appears stated age Skin - Warm and dry, without lesions or rashes Head - normocephalic, atraumatic Ears - No pain with external palpation of the ears. Ext canals clear, no lesions, discharge, or masses. TM landmarks well-visualized. Nose - No sinus tenderness to palpation. Oropharynx - Moist and pink mucous membranes. No oral lesions. Posterior pharynx showed no exudate, no erythema. Lymphadenopathy - No cervical or supraclavicular lymphadenopathy. Lungs - Clear to auscultation, without wheezes, rales, rhonchi, or dullness. Heart - RR, S1,S2, no murmur, gallop or rub. No S3, S4. Abdomen/GI - Soft, no lesions. Normoactive bowel sounds. Mild tenderness to palpation of periumbilical and RUQ area. No hsm or masses. Extremities - No clubbing, cyanosis or edema. 5/5 strength in upper and lower extremities. Labs and Other Studies: Lab Results Component Value Date WBC 7.6 07/14/2019 HGB 14.4 07/14/2019 HCT 43.5 07/14/2019 MCV 90.6 07/14/2019 PLATELET 282 07/14/2019 Lab Results Component Value Date NA 138 07/14/2019 K 4.3 07/14/2019 CL 104 07/14/2019 CO2 21 (L) 07/14/2019 BUN 18 07/14/2019 CREATININE 0.69 (L) 07/14/2019 GLUCOSE 81 07/14/2019 GLUCFASTING 93 05/13/2016 CALCIUM 8.9 07/14/2019 ESTGFR 88 07/14/2019 No results found for: HA1C Invalid input(s): THYROIDSTIMULATINGHORMONE Lipid Panel Lab Results Component Value Date CHLPL 195 05/13/2016 HDL 46 05/13/2016 CHOLHDL 4.2 05/13/2016 TRIG 94 05/13/2016 LDLCHOL 130 (H) 05/13/2016 Assessment & Plan: Elida Montez is a very pleasant 69 y.o. female who returns to clinic today. We prioritized and discussed the following issues: #Asthma -- Continue advair + albuterol (refill ordered) -- Return to clinic in 2 months to reassess symptom control with consideration of adding Spiriva #GERD --Add Nexium --Continue famotidine --EGD + follow up with Dr. Rosa in gastroenterology #IBS --Continue hyoscyamine as need #Incontinence --Increase oxybutynin to 15 mg daily # Healthcare Maintenance: --MMG ordered Health Maintenance Summary Breast Cancer screening Overdue 04/25/2019 Done 04/25/2017 MAMMO DIGITAL BILATERAL SCREENING WITH CAD AND TOMOSYNTHESIS Patient has more history with this topic... Advance Directive Overdue 09/12/2003 Zoster vaccine Postponed 05/27/2021 Originally 11/30/2012. Patient Declined Done 10/05/2012 Imm Admin: Zoster Vaccine, Live Tetanus vaccine Next Due 10/09/2028 Done 10/09/2018 Imm Admin: Td Vaccine, Absorbed, PF, Adult Patient has more history with this topic... Colonoscopy Next Due 07/31/2028 Done 07/31/2018 COLONOSCOPY Patient has more history with this topic... Tdap adult This plan is no longer active. Done 09/16/2008 Imm Admin: Tdap Vaccine Pneumo vaccine (65+) This plan is no longer active. Done 10/05/2014 Imm Admin: Pneumococcal Conjugate (13 Valent) Patient has more history with this topic... Hepatitis C Screening This plan is no longer active. Done 11/24/2014 HEPATITIS C ANTIBODY Hepatitis C Ab Bone Density Scan This plan is no longer active. Done 05/25/2018 DXA CENTRAL-SPINE, HIP, AND/OR WHOLE BODY (GENERIC) Patient has more history with this topic... Influenza (Flu) vaccine This plan is no longer active. Done 04/13/2020 Imm Admin: Influenza Vaccine, Quadrivalent, Adjuvanted Patient has more history with this topic... Katy Conrad Medical Student RobertaAllison, CIVIL ENGINEERING SPECIALIST - 06/05/2020 10:00 AM EST Subjective: Patient ID: Elida Montez is a 69 y.o. female presents today for annual wellness exam. Self assessment of Health Status: She reports that she is doing well. Hernia- in her Right upper abdomen. She will get intermittent pain. It can be quite bothersome for her. GERD- she will have occasional vomiting after food. It occur just after eating and she will get abdominal cramping associated with it. She reports that sometimes it can even be soup. She will usually only have one episode. She denies any blood in the vomit. She has not noticed that certain foods bother it. She denies any burning or pain. She will at time choke and gag on her food. She is on pepcid. She does have an occasional cough at night. She will also use casey seltzers at time. She has history of IBS and will get occasional abdominal pain. It is improved with bowel movements or taking the levsin. Asthma- she has advair and albuterol. It seems a little worse this year. She has to use the albuterol daily now. She feels that it is more than her baseline. RLS- she is on requip 3 mg nightly; doing alright on the requip and that helps . Anxiety- she is on prozac. Urinary incontinence- she has been on oxybutynin and it is not working as well. She has needed to wear a pad every day. She has a lot of stress incontinence. Other providers: Dr. Rosa, Suppliers: none Memory issues (mini-cog score no cocnern): no Advanced directives: Health Risk Assessment (HRA): (all responses reviewed including blank responses) Annual Wellness Visit Responses: myD-H Annual Wellness Visit Responses 06/05/2020 Health in general Good Quality of life Very Good Physical health Good Mental health Good Satisfaction with social activities Good Ability to carry out social activities Very Good Ability to carry out physical activities Completely Bothered by emotional problems Never Rate of fatigue Moderate Rate of pain [...] Injured as a result of a fall - Walkways free of cords/clutter Yes Smoke detectors [...] Not at all Feel lonely or isolated Never Have money for everyday living Yes Confident in managing health problems Very confident Confident filling medical forms Extremely Medication finances No Smoking Status Never Drinking frequency Monthly or less Drinks per day 0 drinks 6+ drinks on one occasion - Audit-C Score Incomplete 10 mins of vigorous physical activity 7 days Time spent on vigorous physical activity 40 minutes 10 mins of moderate physical activity 7 days Time spent on moderate physical activity 30 minutes Eat Fruit 1 - 3 times per day Eat Vegetables 1 - 3 times per day Wear Seatbelt Always Tooth or Mouth Problems No Urinary Incontinence Yes Sexually active Yes Live Alone No School Some college or technical school Employment Status Currently working Hours per week 40 or more hours Combined Household Income $25,000 to less than $35,000 # People Supported 3 Who is taking survey I am (patient) Past/Family/Social History/Medications and Allergies reviewed and/or documented below. (If using opioids or at risk for OUD, the benefits of using other, non-opioid pain therapies was discussed.) Objective: BP 123/75 (BP Location (NBP): Left arm, Patient Position: Sitting, BP Cuff Sizes: Adult (25-34 cm)) Pulse 60 Temp 36.1 ??C (97 ??F) (Temporal) Ht 152.9 cm (5' 0.2) Wt 59.5 kg (131 lb 3.2 oz) SpO2 99% BMI 25.46 kg/m?? Wt Readings from Last 3 Encounters: 06/05/20 59.5 kg (131 lb 3.2 oz) 12/20/19 59 kg (130 lb) 09/02/19 56.2 kg (123 lb 14.4 oz) Hearing assessment (whisper test, rubbing fingers); normal with masks on Physical Exam Vitals signs reviewed. Constitutional: Appearance: She is well-developed. HENT: Head: Normocephalic and atraumatic. Right Ear: Tympanic membrane, ear canal and external ear normal. Left Ear: Tympanic membrane, ear canal and external ear normal. Eyes: General: Right eye: No discharge. Left eye: No discharge. Conjunctiva/sclera: Conjunctivae normal. Pupils: Pupils are equal, round, and reactive to light. Neck: Musculoskeletal: Normal range of motion and neck supple. Thyroid: No thyromegaly. Cardiovascular: Rate and Rhythm: Normal rate and regular rhythm. Heart sounds: Normal heart sounds. No murmur. No friction rub. Pulmonary: Effort: Pulmonary effort is normal. Breath sounds: Normal breath sounds. No wheezing or rales. Chest: Chest wall: No tenderness. Abdominal: General: Bowel sounds are normal. There is no distension. Palpations: Abdomen is soft. There is no mass. Tenderness: There is no abdominal tenderness. There is no guarding or rebound. Musculoskeletal: Normal range of motion. Lymphadenopathy: Cervical: No cervical adenopathy. Skin: General: Skin is warm and dry. Findings: No rash. Neurological: Mental Status: She is alert and oriented to person, place, and time. Cranial Nerves: No cranial nerve deficit. Coordination: Coordination normal. Deep Tendon Reflexes: Reflexes normal. Psychiatric: Behavior: Behavior normal. Thought Content: Thought content normal. Judgment: Judgment normal. Assessment and Plan: Assessment/Plan: Elida was seen today for annual wellness visit. Diagnoses and all orders for this visit: Medicare annual wellness visit, subsequent - pleasant 69 year old female doing well overall. Encounter for screening mammogram for breast cancer - Mammo Screening Cad and Ernesto Bilateral; Future Gastroesophageal reflux disease, unspecified whether esophagitis present - Referral to Gastroenterology - will have her get EGD with ongoing symptoms and follow up with Dr. Rosa. - esomeprazole (NexIUM) 40 mg Capsule, Delayed Release(E.C.); Take 1 capsule by mouth 2 times daily. Restless leg syndrome - controlled with medications Other orders - albuteroL (Ventolin HFA) 90 mcg/actuation HFA Aerosol Inhaler; Inhale 2 puffs into the lungs every6 hours as needed for Wheezing. Use with spacer Urinary incontinence- will increase to 3 tablets daily to see if helps. - oxybutynin XL (Ditropan-XL) 5 mg Tablet Extended Rel 24 hr; Take 3 tablets by mouth daily. Ms. Montez was seen today for exam. In conclusion, we discussed the followin. SCREENING SCHEDULE & IMMUNIZATIONS - Health Maintenance Topic Date Due ??? Advance Directive 09/12/2003 ??? Breast Cancer screening 04/25/2019 ??? Zoster vaccine (2 of 3) 05/27/2021 (Originally 11/30/2012) ??? Colonoscopy 07/31/2028 ??? Tetanus vaccine 10/09/2028 ??? Pneumo vaccine (65+) Completed ??? Bone Density Scan Completed ??? Hepatitis C Screening Completed ??? Influenza (Flu) vaccine Completed ??? Tdap adult Completed 2. RISK FACTORS (including any positives from HRA) and 3. PERSONALIZED HEALTH ADVICE - [x] A copy of the Risk Factors and Personalized Health Advice and Health Maintenance List was copiedto the patient's After Visit Summary. documented in this encounter Plan of Treatment Scheduled Referrals Name Type Priority Associated Diagnoses Order S chedule Referral to Outpatient Routine Gastroesophageal Ordered: Gastroenterology Referral reflux disease, 06/05/20 20 unspecified whether esophagitis present documented as of this encounter Visit Diagnoses Diagnosis Medicare annual wellness visit, subseque nt - Primary Routine general medical examination at a health care facility Encounter for screening mammogram for br east cancer Gastroesophageal reflux disease, unspeci fied whether esophagitis present Restless leg syndrome Restless legs syndrome (RLS) documented in this encounter Care Teams Radio Division Lieutenant Relationship Specialty Start Date End Date Allison Granados APRN PCP - General 04/22/14 06/27/[address] [facility] [address] GENERAL INTERNAL [address] [place] [address] documented as of this encounter
--- OUTSIDE RECORDS SUMMARY | 2021-12-28 04:07 | XMS_ITS | Encounter Summary ---
:1950 Author Organization [facility] [place] [address] Care Team Providers Name Role Phone Allison Granados APRN Primary Care Provider [phone] Reason for Visit Reason Comments Gastroesophageal Reflux Encounter Details Date Type Department Care Team Description 10/15/2019 TH Visit Internal Medicine Allison Granados oesophageal reflux disease, esophagitis presence not specified; (TeleHealth) at [facility] [place] Monie infection, esophageal [address] [address] GENERAL INTERNAL [phone] [facility], [place] [address] Social History Tobacco Use Types [...] on file documented as of this encounter Progress Notes Allison Granados APRN - 10/15/2019 8:00 AM EDT PCP: Allison Granados APRN Chief Complaint Patient presents with ??? Gastroesophageal Reflux TELEPHONE VISIT- Given the ongoing COVID-19 public [facility] emergency, this visit was done as a Telephone visit. The patient gave verbal consent for the visit. The exam findings were based on the telephone conversation with the patient during the visit. Total Time: 25 minutes SUBJECTIVE: Elida Montez is a 69 y.o. female who has this visit scheduled as follow up. She was last seen in August and she was having ongoing stomach pain, nausea and vomiting with eating. She had been on zantac and nexium. She was treated last fall for esophageal monie infection with nystatin orally. We changed it to fluconazole and her symptoms had improved as of last month. RLS- she has started to notice more in the early afternoon. GERD- had to switch to famotidine, and it did help. She did the course of the fluconazole and felt alot better. She reports that with switch to the famotidine it is worse again. Asthma- She is doing the advair and flonase. She is rinsing her mouth out after taking it. Osteoporosis- on boniva, due to complete course in October 2019 Review of Systems Constitutional: Negative for chills and fever. Respiratory: Positive for cough (with her esophageal problems. ) and shortness of breath. Cardiovascular: Negative for chest pain, palpitations and leg swelling. Allergies Allergen Reactions ??? Codeine Nausea And Vomiting ??? Unable To Find [Unclassified Drug] Seasonal Current Outpatient Medications Medication Sig Dispense Refill ??? famotidine (Pepcid) 40 mg Tablet Take 1 tablet by mouth 2 times daily. 60 tablet 3 ??? fluconazole (Diflucan) 100 mg Tablet Take 1 tablet by mouth daily. 200 mg the first day and [id number] mg daily for another 9 days. 11 tablet 0 ??? baclofen (LIORESAL) 10 mg Tablet Take 1 tablet by mouth 2 times daily. 180 tablet 3 ??? oxybutynin (DITROPAN-XL) 5 mg Tablet Extended Rel 24 hr Take 2 tablets by mouth daily. 180 tablet 3 ??? esomeprazole (NEXIUM) 40 mg Capsule, Delayed Release(E.C.) Take 1 capsule by mouth 2 times daily(before meals). 180 capsule 3 ??? albuterol (VENTOLIN HFA) 90 mcg/actuation HFA Aerosol Inhaler Inhale 2 puffs into the lungs every 6 hours as needed for Wheezing. Use with spacer 54 Inhaler 3 ??? fluticasone propionate (FLONASE) 50 mcg/actuation [place], Suspension 1 spray by Each Nare route daily. 16 g 12 ??? ferrous sulfate 325 mg (65 mg iron) Tablet, Delayed Release (E.C.) Take 1 tablet by mouth daily.90 tablet 3 ??? rOPINIRole (REQUIP) 1 mg Tablet Take 3 tablets by mouth nightly. 270 tablet 3 ??? fluticasone-salmeterol (ADVAIR DISKUS) 250-50 mcg/dose Disk with Device Inhale 1 puff into the lungs 2 times daily. 3 Inhaler 3 ??? FLUoxetine (PROZAC) 20 mg Tablet Take 1 tablet by mouth daily. 90 tablet 3 ??? hyoscyamine (LEVSIN) 0.125 mg Tablet Take 1 tablet by mouth every 6 hours as needed for Cramping. 30 tablet 5 ??? clobetasol (TEMOVATE) 0.05 % Ointment Apply scant amount topically to vulva daily as instructed until next appointment in 6-8 weeks. 15 g 0 No current facility-administered medications for this visit. [...] TSH R79.89 ??? Gastroesophageal reflux K21.9 ??? Monie infection, esophageal B37.81 ??? Hiatal hernia K44.9 OBJECTIVE: There were no vitals filed for this visit. PHYSICAL EXAM: Physical Exam Neurological: Mental Status: She is alert. Psychiatric: Mood and Affect: Mood normal. Thought Content: Thought content normal. ASSESSMENT & PLAN: Elida was seen today for gastroesophageal reflux. Diagnoses and all orders for this visit: Gastroesophageal reflux disease, esophagitis presence not specified - unclear if worsening symptoms are related to the GERd getting worse because of change to famotidine from ranitidine or if the esophageal monie is returning. - she will try to get famotidine 40 mg BID and see if insurance covers it. If it does not, then willstop med and see if there is worsening of symptoms. If symptoms are worse or not improving on 40 mg BID, will restart the fluconazole - she is in agreement with the plan RLS- she will trial taking medication earlier. I did warn that it may wear off during the night. Shewill monitor her symptoms. - f/u in about 2 months with in clinic visit and labs. Monie infection, esophageal Other orders - famotidine (Pepcid) 40 mg Tablet; Take 1 tablet by mouth 2 times daily. documented in this encounter Plan of Treatment Not on filedocumented as of this encounter Visit Diagnoses Diagnosis Gastroesophageal reflux disease, esophag itis presence not specified Monie infection, esophageal Candidiasis of the esophagus documented in this encounter Care Teams Desizing Machine Operator Head End Relationship Specialty Start Date End Date Allison Granados APRN PCP - General 04/22/14 06/27/[address] [facility] [place] [address] documented as of this encounter
--- OUTSIDE RECORDS SUMMARY | 2021-12-28 04:07 | XMS_ITS | Encounter Summary ---
:1950 Author Organization [facility] [place] [address] Care Team Providers Name Role Phone Kerwin Pineda Primary Care Provider Reason for Visit Reason Onset Date Comments Medication Refill 08/03/2021 Encounter Details Date Type Department Care Team Description 08/03/2021 Refill Internal Medicine at [place] Kerwin Bajwa PA [facility] DR Gutierrez [facility] [place] [address] [place] [address] [phone] (Wo rk) Social History Tobacco Use Types [...] on filedocumented in this encounter Care Teams Loom Cleaner Relationship Specialty Start Date End Date Kerwin Pineda PA PCP - General Internal Medicine 06/28/21 [facility] [place] [address] documented as of this encounter
--- OUTSIDE RECORDS SUMMARY | 2021-12-28 04:07 | XMS_ITS | Encounter Summary ---
:1950 Author Organization [facility] [place] [address] Care Team Providers Name Role Phone Allison Granados APRN Primary Care Provider [phone] Encounter Details Date Type Department Care Team Description 01/01/2021 Telephone Internal Medicine at [facility] Nguyen Le[address] [place] [address] Social History Tobacco Use Types [...] this encounter Miscellaneous Notes Telephone Encounter - Nguyen Lehman - 01/01/2021 11:51 AM EDT Appointment on 02-23-21 with Roberta has been bumped. Left Message for patient to call back to reschedule. Please transfer patient to exit office secretary to aid in scheduling no PSC can schedule yes, please documented in this encounter Plan of Treatment Not on filedocumented as of this encounter Visit Diagnoses Not on filedocumented in this encounter Care Teams Java Jsf Developer Relationship Specialty Start Date End Date Allison Granados APRN PCP - General 04/22/14 06/27/[address] [facility] [address] [place]OD [place] [address] documented as of this encounter
--- OUTSIDE RECORDS SUMMARY | 2021-12-28 04:07 | XMS_ITS | Encounter Summary ---
:1950 Author Organization [place] [address] Care Team Providers Name Role Phone Allison Granados APRN Primary Care Provider [phone] Reason for Visit Reason Onset Date Comments Medication Refill 07/20/2020 Encounter Details Date Type Department Care Team Description 07/20/2020 Refill Internal Medicine at [place] Lucio Montes De Oca MD [facility] DR Gutierrez [facility] Cass shiva [facility] [place] [address] RD [phone] [place], [place] [address] (Wo rk) Social History Tobacco [...] on filedocumented in this encounter Care Teams Rod Piler Relationship Specialty Start Date End Date Allison Granados APRN PCP - General 04/22/14 06/27/[address] [facility] [place] [address] documented as of this encounter
--- OUTSIDE RECORDS SUMMARY | 2021-12-28 04:07 | XMS_ITS | Encounter Summary ---
:1950 Author Organization [facility] [address] Care Team Providers Name Role Phone Kerwin Pineda Primary Care Provider Reason for Visit Reason Onset Date Comments Medication Refill 05/17/2021 Encounter Details Date Type Department Care Team Description 05/17/2021 Refill Internal Medicine at [facility], [facility] DR Gutierrez [facility] [place] [address] RD [phone] [place], [place] [address] (Wo rk) Social History Tobacco [...] on filedocumented in this encounter Care Teams Log Check Scaler Relationship Specialty Start Date End Date Kerwin Pnieda PA PCP - General Internal Medicine 06/28/21 [facility] [place] [address] documented as of this encounter
--- OUTSIDE RECORDS SUMMARY | 2021-12-28 04:07 | XMS_ITS | Encounter Summary ---
:1950 Author Organization [facility] [address] Care Team Providers Name Role Phone Kerwin Pineda Primary Care Provider Reason for Visit Reason Onset Date Comments Medication Refill 10/29/2019 Encounter Details Date Type Department Care Team Description 10/29/2019 Refill Internal Medicine at [facility], [facility] DR Gutierrez [facility] [place] [address] RD [phone] [place], [place] [address] (Wo rk) Social History Tobacco [...] on filedocumented in this encounter Care Teams Health Coach Relationship Specialty Start Date End Date Kerwin Pineda PA PCP - General Internal Medicine 06/28/21 [facility] [place] [address] documented as of this encounter
--- OUTSIDE RECORDS SUMMARY | 2021-12-28 04:07 | XMS_ITS | Encounter Summary ---
:1950 Author Organization [facility] [address] Care Team Providers Name Role Phone Allison Granados APRN Primary Care Provider [phone] Encounter Details Date Type Department Care Team Description 10/13/2020 [place] [facility] [place] Amarilys Pérez, EGD WITH BIOPSY ([facility] Marilyn espinal MD 2.49) [place] [address] [facility] [phone] [place], [place] [address] Social History Tobacco Use Types [...] Sign Reading Time Taken Comments Blood Pressure 128/76 10/13/2020 1:30 PM EDT Pulse 70 10/13/2020 1:30 PM EDT Temperature 36.6 ??C (97.9 ??F) 10/13/2020 11:59 AM EDT Respiratory Rate 17 10/13/2020 1:30 PM EDT Oxygen Saturation 96% 10/13/2020 1:30 PM EDT Inhaled Oxygen Concentration - - [...] the day after the procedure, use an qhhd-ckk-uhlauts spray to numb yourthroat. Sucking on throat [...] occurs, please contact your Doctor. Please call [phone] before 8pm Mon-Fri with problems, questions or concerns. If you call after 8pm or on weekends, call the Hospital at [phone] and ask to speak to the Pharmacy Intake Coordinator industrial organizational psychologist and the substation operator helper will contact that person for you. When should you call for help? Call [phone] anytime you think you may need emergency [...] After Visit Summary and more online at [email or web address] If you would like to provide [...] cost to you. Content Version: 12.2 ?? [id number] [employer]. Care instructions adapted under license by [facility]. If you have questions about a medical condition or this instruction, always ask your healthcare professional. [employer] disclaims any warranty or liability for your [...] 12/28/2020 (FLONASE) 50 mcg/actuation Nare route daily. Fleming, Suspension documented as of this encounter H&P [...] 1:33 PM 1:33 EDT PM EDT Narrative [facility] - 10/13/2020 1:33 PM EDT Specimen requisition ordered. ??Separate Pathology report to follow Amarilys Pérez MD PATHOLOGY/CYTOLOGY ORDERABLE S Performing Organization Address City/State/[place] [address] Surgical Pathology Report (10/13/2020 1:30 PM EDT) Component Value Ref Test Analysis Performed At [facility] gist Range Method Time Signature Surgical [id number] ? Location: 4T; EA11; [facility] Report The signing pathologist has (i) examined the relevant preparation(s) for the MEMORIAL specimen(s) and (ii) rendered or confirmed the diagnosis(es) . HOSPITAL LABORATORY . ?Surgic al Pathology DIAGNOSIS Esophagus, ??biopsy: - Squamous mucosa negative for diagnostic abnormality. Electronically signed by: ?Dawit Garcia MD Verified: ??10/19/2020 14:52 ??Pathologist Performed at: ??-[facility] Dept. [place]ology, [place], [place] SPECIMEN(S) SUBMITTED A - esophagus, biopsy [...] Organization Address City/State/[place] [address] [facility] [address] UPPER GI ENDOSCOPY (10/13/2020 12:53 PM EDT) Component Value Ref Test Analysis Performed At [facility] gist Range Method Time Signature UPPER GI [facility] ENDOSCOPY Endoscopy Procedure Date: 10/13/2020 12:53 PM ? Patient Name: [place] Montez ? Date of : 1950 ? Age: 70 ? Order #: [id number] ? Instrument Name: [id number] ? Procedure: ? Upper GI endoscopy Indications: ? Dysphagia, Heartburn Providers: ? Amarilys Pérez MD, Darien Broderick ? Adrianne Chan MD: ?Allison Grnaados Medicines: ? Midazolam 2 mg IV, Fentanyl [...] Laterality 10/13/2020 12:53 PM EDT Allison Granados PARTITION ASSEMBLY MACHINE OPERATOR GENERAL SURGICAL ORDERABLES Performing Organization Address City/State/ZIP Code Phon e Number [place] documented in this encounter Visit Diagnoses Not on filedocumented in this encounter Administered Medications Inactive Administered Medications - up to 3 most recent administrations Medication Order MAR Action Action Date Dose Rate Site benzocaine (Hurricane One) Given 10/13/2020 1:24 PM EDT 1 spray Mucosal spray 20% (restricted to ginger-procedural use) ONCE PRN, Starting on Fri10/13/20 at 1324, Until Fri10/13/20 at 1647, Intra-Operative (Intra-Procedure) fentaNYL (pf) (50 mcg/mL) multi-dose Given 10/13/2020 1:23 PM ED T 50 mcg injection ONCE PRN, Starting on Fri10/13/20 at 1320, Until Fri10/13/20 at 1647, Intra-Operative (Intra-Procedure), Routine Given 10/13/2020 1:20 PM EDT 50 mcg lactated ringers infusion New Bag 10/13/2020 12:12 PM EDT 100 mL/hr 100 mL/hr 100 mL/hr, Intravenous, CONTINUOUS, Starting on Fri10/13/20 at 1215, Until Fri10/13/20 at 1420, Endoscopy (Day of Procedure) midazolam (pf) (Versed) (1 mg/mL) multi-dose Given 10/13/2020 2: 20 PM EDT 1 mg injection ONCE PRN, Starting on Fri10/13/20 at 1420, Until Fri10/13/20 at 1647, Intra-Operative (Intra-Procedure), Routine Given 10/13/2020 1:23 PM EDT 1 mg documented in this encounter Active and Recently [...] injection (CANCELED) 1320 (Given - Provider: Darien Chan RN)1323 (Given - Provider: Darien Chan RN) ONCE PRN, Starting Fri10/13/20 at 1320, U ntil Fri10/13/20 at 1647, Intra-Operative (Intra-Procedure), Routine midazolam (pf) (Versed) (1 mg/mL) multi-dose injection (CANCELED ) 1323 (Given - Provider: Darien Chan RN)1420 (Given - Provider: Dairen Chan RN) ONCE PRN, Starting Fri10/13/20 at 1420, U ntil Fri10/13/20 at 1647, Intra-Operative (Intra-Procedure), Routine documented in this encounter Care Teams Plant Taxonomy Teacher Relationship Specialty Start Date End Date Allison Granados APRN PCP - General 04/22/14 06/27/[address] [facility] [place] [address] documented as of this encounter
--- OUTSIDE RECORDS SUMMARY | 2021-12-28 04:07 | XMS_ITS | Encounter Summary ---
:1950 Author Organization [facility] [place] [address] Care Team Providers Name Role Phone Kerwin Pineda Primary Care Provider Encounter Details Date Type Department Care Team Description 09/13/2021 Hospital Encounter [place] [facility] Rodolfo Lucia Acute right-sided [facility] Dr Tiny MD low back pain [facility] sciatic a [id number] [place] [phone] [place] [address] Social History Tobacco Use Types Packs/Day Years [...] Sig Dispensed Refills Start Date End Date cyclobenzaprine Take 1 tablet by 14 tablet 0 09/13/2021 (Flexeril) 10 mg mouth nightly as TabletIndications: Acute needed for Muscle right-sided low back pain spasms. without sciatica baclofen (Lioresal) 10 mg Take 1 tablet by 180 tablet 3 07/08 Tablet mouth 2 times daily. esomeprazole (NexIUM) 40 Take 1 capsule by 180 capsule 3 mg Capsule, Delayed mouth 2 times Release(E.C.) daily. fluticasone Inhale 1 puff into 1 each 12 06/13/2021 propion-salmeteroL the lungs every 12 (ADVAIR) 500-50 mcg/dose hours. Disk with DeviceIndications: Mild intermittent asthma, unspecified whether complicated famotidine (Pepcid) 40 mg Take 1 tablet by 180 tablet 3 05/07 Tablet mouth 2 times daily. UNABLE TO FIND Take 1 capsule by mouth daily. Neuriva Plus 0 Probiotic powder ascorbic acid, vitamin C, Take 500 mg by 0 (VITAMIN C) 500 mg mouth daily. Tablet, Chewable fluticasone propionate 1 spray by Each 16 g 12 12/29/19 21 (FLONASE) 50 Nare route daily. mcg/actuation [place], Suspension atorvastatin (Lipitor) 20 Take 1 tablet [...] hours as needed abdominal pain for Cramping. solifenacin (VESICARE) 5 Take 2 tablets by 30 tablet 3 02/202109/19/2021 mg TabletIndications: mouth daily. Urinary frequency rOPINIRole (Requip) 1 mg Take 3 tablets by 270 tablet 3 10/0610/26/2021 Tablet mouth nightly. FLUoxetine (PROzac) 20 mg Take 1 tablet by 90 tablet 3 10/0610/26/2021 Tablet mouth daily. documented as of this encounter Plan of Treatment Not on filedocumented as of this encounter Procedures Procedure Name Priority Date/Time Associated Diagnosis Comme nts XR LUMBAR SPINE 2 Routine 09/13/2021 12:13 PM Acute right-side d Results for this OR 3 VIEWS EST low back pain procedure are in without sciatica the results section. documented in this encounter Results XR Lumbar Spine 2 [...] questions please contact the health personal care worker that requested your imaging first. ? Narrative [...] L5-S1 is si milar when compared to 2013. Lumbar lordosis is maintained. Facet arthropath y [...] L5-S1 is si milar when compared to 2013. Lumbar lordosis is maintained. Facet arthropath y [...] ho have questions please contact the health personal care worker that requested your imaging first. Electronically signed by: Nikolay Da Silva, [facility] ([phone]), at 09/13/2021 2:28 PM Rodolfo Lucia MD IMG DX ORDERABLES documented in this encounter Visit Diagnoses Diagnosis Acute right-sided low back pain without sciatica documented in this encounter Care Teams Precision Lens Centerer And Edger Relationship Specialty Start Date End Date Kerwin Pineda PA PCP - General Internal Medicine 06/28/21 [facility] [place] [address] documented as of this encounter
--- OUTSIDE RECORDS SUMMARY | 2021-12-28 04:07 | XMS_ITS | Encounter Summary ---
:1950 Author Organization [facility] [place] [address] Care Team Providers Name Role Phone Allison Granados APRN Primary Care Provider [phone] Reason for Visit Reason Onset Date Comments Prior Authorization 10/16/2020 Oxybutynin Chloride ER 5mg tablets Encounter Details Date Type Department Care Team Description 10/16/2020 Telephone Internal Medicine at Jeannette [place] CMA Diana or Authorization [facility] (Oxybutynin Chloride ER [address] [facility] 5mg ta blets) [place], [place] [id number] Social History Tobacco Use Types Packs/Day Years [...] Telephone Encounter - Jeannette [place] CMA - 10/16/2020 8:10 AM EDT Received PA request for this medication, however this medication is covered under patient insurance.PA no longer needed Medication Prior Authorization for Primary [place] [address] Request received via: CMM Patient: [place] Monte[place] Patient : 1950 Insurance Company: [employer] Sent via: CM Reeves: [id number] Physician: Allison Granados APRN NPI: [id number] Medication Requested: oxybutynin XL (Ditropan-XL) 5 mg Tablet Extended Rel 24 hr Frequency/Sig: Take 2 tablets by mouth daily Disp: 180 Refills: 3 Currently taking: yes If yes, how lon11/2015 Diagnosis for this medication: Urge incontinence (N39.41) Prior medications trialed in this patient: Additional Notes: documented in this encounter Plan of Treatment Not on filedocumented as of this encounter Visit Diagnoses Not on filedocumented in this encounter Care Teams Alkylation Operator Relationship Specialty Start Date End Date Allison Granados APRN PCP - General 04/22/14 06/27/21 [facility] [address] [place]OD [place] [address] documented as of this encounter
--- OUTSIDE RECORDS SUMMARY | 2021-12-28 04:07 | XMS_ITS | Encounter Summary ---
:1950 Author Organization [facility] [place] [address] Care Team Providers Name Role Phone Allison Granados APRN Primary Care Provider [phone] Encounter Details Date Type Department Care Team Description 03/02/2021 Hospital Encounter Mammography at [facility] Allison Granados Breast tenderness [facility] SOILA Rain in female [address] [place], [place] CENTER [address] GENERAL INTERNAL [phone] MED[place], [place] [address] Social History Tobacco Use Types [...] 21 (FLONASE) 50 Nare route daily. mcg/actuation [place], Suspension atorvastatin (Lipitor) 20 Take 1 tablet [...] encounter Procedures Procedure Name Priority Date/Time Associated Comments Diagnosis MAMMO DIAGNOSTIC CAD Routine 03/02/2021 9:05 AM Breast tendern ess Results for this AND ERNESTO BILATERAL EDT in female procedure are in the results section. documented in this encounter Results Mammo Diagnostic CAD and Ernesto Bilateral (03/02/2021 [...] with their provider to determine their preferred [facility] cancer screening schedule. * ??Women [...] who have questions please contact the health physician primary care sports medicine that requested your imaging first. ? Narrative [...] Mastodynia documented in this encounter Care Teams Form Setter Metal Road Forms Relationship Specialty Start Date End Date Allison Granados APRN PCP - General 04/22/14 06/27/[address] [facility] [place] [address] documented as of this encounter
--- OUTSIDE RECORDS SUMMARY | 2021-12-28 04:08 | XMS_ITS | Encounter Summary ---
:1950 Author Organization [place] [address] Care Team Providers Name Role Phone Allison Granados APRN Primary Care Provider [phone] Reason for Visit Reason Comments Other Encounter Details Date Type Department Care Team Description 01/11/2019 Telephone Internal Medicine at [facility] Frances Rodriguez Other [address] [place] [address] Social History Tobacco Use Types Packs/Day [...] Telephone Encounter - [place] Vo RN - 01/11/2019 1:09 PM EDT Phoned patient, stated this weekend was tough with nausea, stomach ache, and burning with urination,is feeling better today, has abx until Friday, will reach out to clinic if sx start to worsen Telephone Encounter - Frances Rodriguez - 01/11/2019 8:19 AM EDT Message: Patient calling stating that she is calling to let Allison Granados APRN know how she isdoing after her antibiotics were changed for her bladder infection. Patient says that this past weekend Was bad but feels better this morning Ask caller their first and last name and relationship to the patient: Elida Montez - Patient Best time to call back: any Ok to leave a message: yes Ok to send my- message: no Offered Appointment: MA/Nurse/Pateros contacted via: Message: yes Call: no Pager: no documented in this encounter Plan of Treatment Not on filedocumented as of this encounter Visit Diagnoses Not on filedocumented in this encounter Care Teams De Alcoholizer Relationship Specialty Start Date End Date Allison Granados APRN PCP - General 04/22/14 06/27/21 [facility] [address] [place] [address] documented as of this encounter
--- OUTSIDE RECORDS SUMMARY | 2021-12-28 04:08 | XMS_ITS | Encounter Summary ---
:1950 Author Organization [facility] [place] [address] Care Team Providers Name Role Phone Kerwin Pineda Primary Care Provider Reason for Visit Reason Onset Date Comments Medication Refill 05/26/2019 Encounter Details Date Type Department Care Team Description 05/26/2019 Refill [facility] Allison , [facility] DR Gutierrez [facility] [place] [address] RD [phone] [place], [place] [address] (Wo rk) Social History Tobacco [...] on filedocumented in this encounter Care Teams Wetland Scientist Relationship Specialty Start Date End Date Kerwin Pineda PA PCP - General Internal Medicine 06/28/21 [facility] [place] [address] documented as of this encounter
--- OUTSIDE RECORDS SUMMARY | 2021-12-28 04:08 | XMS_ITS | Encounter Summary ---
:1950 Author Organization [facility] [place] [address] Care Team Providers Name Role Phone Allison Granados APRN Primary Care Provider [phone] Reason for Visit Reason Comments Emesis After eating. Encounter Details Date Type Department Care Team Description 08/26/2019 Office Visit Internal Medicine Allison Granados da infection, esophageal (Primary Dx); at [facility] SOILA Rain Gastroesophageal reflux disease, esophag itis presence not specified [address] [place] [address] [place] [address] GENERAL INTERNAL [phone] [place], [place] [address] Social History Tobacco Use Types [...] Sign Reading Time Taken Comments Blood Pressure 125/68 08/26/2019 3:07 PM EST Pulse 61 08/26/2019 3:07 PM EST Temperature 36.7 ??C (98.1 ??F) 08/26/2019 3:07 PM EST Respiratory Rate 16 08/26/2019 3:07 PM EST Oxygen Saturation 98% 08/26/2019 3:07 PM EST Inhaled Oxygen Concentration - - Weight 56.5 kg (124 lb 9.6 oz) 08/26/2019 3:07 PM EST Height 153.5 cm (5' 0.43) 08/26/2019 3:07 PM EST Body Mass Index 23.99 08/26/2019 3:07 PM EST documented in this encounter Progress Notes Allison Granados APRN - 08/26/2019 3:30 PM EST PCP: Allison Granados APRN Chief Complaint Patient presents with ??? Emesis After eating. SUBJECTIVE: Elida Montez is a 68 y.o. female who presents for ongoing stomach pain and nausea and vomiting after eating. She has long history of GI promblems, and is on zantac and nexium. Her last endoscopy wasin February of 2019. She is followed by Dr. Rosa in GI and was last seen in April of 2019. A 4mo f/u was recommended. - She reports that for the last few weeks she has been vomiting. She is not eating much at a time. It does not matter what she eats. She will get stomach pain in the morning on an empty stomach. She feels that she is having GERD symptoms again. She is on the nexium and ranitidine. Wt Readings from Last 3 Encounters: 08/26/19 56.5 kg (124 lb 9.6 oz) 07/14/19 56.9 kg (125 lb 6.4 oz) 05/27/19 58 kg (127 lb 12.8 oz) Review of Systems Constitutional: Positive for fatigue. Negative for chills and fever. HENT: Positive for ear pain (the other day, not today) and sore throat. Negative for trouble swallowing. Respiratory: Negative for cough and shortness of breath. Gastrointestinal: Positive for abdominal distention, abdominal pain, diarrhea (on occasion), nausea and vomiting. Negative for blood in stool. Allergies Allergen Reactions ??? Codeine Nausea And Vomiting ??? Unable To Find [Unclassified Drug] Seasonal Current Outpatient Medications Medication Sig Dispense Refill ??? baclofen (LIORESAL) 10 mg Tablet Take 1 tablet by mouth 2 times daily. 180 tablet 3 ??? oxybutynin (DITROPAN-XL) 5 mg Tablet Extended Rel 24 hr Take 2 tablets by mouth daily. 180 tablet 3 ??? esomeprazole (NEXIUM) 40 mg Capsule, Delayed Release(E.C.) Take 1 capsule by mouth 2 times daily(before meals). 180 capsule 3 ??? ranitidine (ZANTAC) 150 mg Capsule Take 2 capsules by mouth 2 times daily. Take after breakfast and before bed. 180 capsule 3 ??? albuterol (VENTOLIN HFA) 90 mcg/actuation HFA Aerosol Inhaler Inhale 2 puffs into the lungs every 6 hours as needed for Wheezing. Use with spacer 54 Inhaler 3 ??? nystatin (MYCOSTATIN) 100,000 unit/mL Suspension Take 5 mLs by mouth 4 times daily. Swish and swallow. Continue for 48 hours after resolution symptoms or up to 7-14 days 473 mL 2 ??? fluticasone propionate (FLONASE) 50 mcg/actuation [place], Suspension 1 spray by Each Nare route daily. 16 g 12 ??? ferrous sulfate 325 mg (65 mg iron) Tablet, Delayed Release (E.C.) Take 1 tablet by mouth daily.90 tablet 3 ??? ibandronate (BONIVA) 150 mg Tablet Take 1 tablet by mouth every 30 days. Take in AM with full glass of water, on an empty stomach. Do not lie down for 30 min. 3 tablet 3 ??? rOPINIRole (REQUIP) 1 mg [...] B37.81 ??? Hiatal hernia K44.9 OBJECTIVE: Vitals: 08/26/19 1507 BP: 125/68 BP Location (NBP): Left arm Patient Position: Sitting BP Cuff Sizes: Adult (25-34 cm) Pulse: 61 Resp: 16 Temp: 36.7 ??C (98.1 ??F) TempSrc: Oral SpO2: 98% Weight: 56.5 kg (124 lb 9.6 oz) Height: 153.5 cm (5' 0.43) PHYSICAL EXAM: Physical Exam Vitals signs reviewed. Constitutional: Appearance: She is well-developed. HENT: Head: Normocephalic and atraumatic. Eyes: General: No scleral icterus. Conjunctiva/sclera: Conjunctivae normal. Pulmonary: Effort: Pulmonary effort is normal. Abdominal: Tenderness: There is abdominal tenderness. Skin: General: Skin is warm and dry. Neurological: Mental Status: She is alert and oriented to person, place, and time. Psychiatric: Behavior: Behavior normal. Thought Content: Thought content normal. Judgment: Judgment normal. ASSESSMENT & PLAN: Elida was seen today for emesis. Diagnoses and all orders for this visit: Shabana infection, esophageal Gastroesophageal reflux disease, esophagitis presence not specified - given ongoing symptoms, and that she did not have resolution after treatment with nystatin, will do fluconazole to see if symptoms improved. She feels symptoms in her esophagus more than stomach. - f/u with GI in about a week. - fluconazole (Diflucan) 100 mg Tablet; Take 1 tablet by mouth daily. 200 mg the first day and then 100 mg daily for another 9 days. documented in this encounter Plan of Treatment Not on filedocumented as of this encounter Visit Diagnoses Diagnosis Shabana infection, esophageal - Primary Candidiasis of the esophagus Gastroesophageal reflux disease, esophag itis presence not specified documented in this encounter Care Teams City Comptroller Relationship Specialty Start Date End Date Allison Granados APRN PCP - General 04/22/14 06/27/21 [facility] [place] [address] documented as of this encounter
--- OUTSIDE RECORDS SUMMARY | 2021-12-28 04:08 | XMS_ITS | Encounter Summary ---
:1950 Author Organization [facility] [place] [address] Care Team Providers Name Role Phone Allison Granados APRN Primary Care Provider [phone] Encounter Details Date Type Department Care Team Description 12/28/2018 Telephone Internal Medicine at [facility] Pilar Vo, RN [address] [place] [address] Social History Tobacco Use Types [...] this encounter Miscellaneous Notes Telephone Encounter - Weslye Vo, RN - 12/28/2018 8:49 AM EDT Phoned patient, relayed message, she stated she is feeling better, symptoms of UTI are gone, states her stomach is a little upset, will watch to see how she feels and get in touch with clinic if worsens Telephone Encounter - Wesley Vo, RN - 12/28/2018 8:49 AM EDT ----- Message from Zayda Vanegas MD sent at 12/28/2018 7:58 AM EDT ----- Please let Elida know that her urine grew E coli, and is sensitive to Bactrim. I hope she's feeling better! Thanks ----- Message ----- From: Esteban, Lab In [facility] Sent: 12/26/2018 3:34 PM To: Zayda Vanegas MD documented in this encounter Plan of Treatment Not on filedocumented as of this encounter Visit Diagnoses Not on filedocumented in this encounter Care Teams [employer] District Supervisor Relationship Specialty Start Date End Date Allison Granados APRN PCP - General 04/22/14 06/27/[address] [facility] [place] [address] documented as of this encounter
--- OUTSIDE RECORDS SUMMARY | 2021-12-28 04:08 | XMS_ITS | Encounter Summary ---
:1950 Author Organization [facility] [place] [address] Care Team Providers Name Role Phone Allison Granados APRN Primary Care Provider [phone] Encounter Details Date Type Department Care Team Description 03/02/2019 Hospital Encounter Gastroenterology at [facility] Tariq Lindo, [facility] [place] [address] [facility] [phone] [facility] [place], [place] [address] Social History Tobacco Use Types [...] Sign Reading Time Taken Comments Blood Pressure 119/63 03/02/2019 6:40 PM EDT Pulse 106 03/02/2019 6:15 PM EDT Temperature 36.5 ??C (97.7 ??F) 03/02/2019 3:53 PM EDT Respiratory Rate 18 03/02/2019 6:40 PM EDT Oxygen Saturation 93% 03/02/2019 6:40 PM EDT Inhaled Oxygen Concentration - - Weight 53.5 kg (118 lb) 03/02/2019 3:53 PM EDT Height 152.4 cm (5') 03/02/2019 3:53 PM EDT Body Mass Index 23.05 03/02/2019 3:53 PM EDT documented in this encounter Discharge Instructions Discharge InstructionsJackie Renner RN - 03/02/2019 6:29 PM EDT Images from the original note were not included. Upper GI Endoscopy: What to Expect at Home Your Recovery After you have an endoscopy, you will stay at the hospital or clinic for 1 to 2 hours. This will allow the medicine to wear off. You will be able to go home [...] you care for yourself at home? Activity ?? Rest as much as you need to after you go home. ?? You should be able to go back to your usual activities the day after the test. Diet ?? Follow your doctor's directions for eating after the test. ?? Drink plenty of fluids (unless your doctor has told you not to). Medications ?? If you have a sore throat the day after the test, use an [id number] spray to numb your throat. Follow-up care is a camacho part of your treatment and safety. Be sure to make and go to all appointments, and call your doctor if you are having problems. It's also a good idea to know your test results and keep a list of the medicines you take. When should you call for help? Call 911 anytime you think you may need emergency care. For example, call if: ? You passed out (loses consciousness). ? You have trouble breathing. ? You pass maroon or bloody stools. ??Call your doctor now or seek immediate medical care if: ? You have pain that does not get better after your take pain medicine. ? You have new or worse belly pain. ? You have blood in your stools. ? You are sick to your stomach and cannot keep fluids down. ? You have a fever. ? You cannot pass stools or gas. ??Watch closely for changes in your health, and be sure to contact your doctor if: ? Your throat still hurts after a day or two. ? You do not get better as expected. Where can you learn more? Visit our health information library at [email or web address]. You can also view health information on [employer], your personal patient account. Log in or sign up today. Enter J454 in the search box to learn more about Upper GI Endoscopy: What to Expect at Home. Current as of: May 13, 2018 Content Version: 12.1 ?? [id number] delicious. Care instructions adapted under license by [facility]. If you have questions about a medical condition or this instruction, always ask your healthcare professional. [employer] disclaims any warranty or liability for your use of this information. Please call [phone] before 8pm Mon-Fri with problems, questions or concerns. If you call after 8pm or on weekends, call the Hospital at [phone] and ask to speak to the Electron Beam Machine Welder Setter regional rehabilitation director and the wood drill operator will contact that person for you. documented in this encounter Medications at Time of Discharge Medication Sig Dispensed Refills Start Date End Date hyoscyamine (LEVSIN) Take 1 tablet by 30 tablet 5 8 0.125 mg mouth every 6 hours TabletIndications: LLQ as needed for abdominal pain Cramping. fluticasone propionate 1 spray by Each 16 g 12 01/29/20 19 12/28/2020 (FLONASE) 50 Nare route daily. mcg/actuation [place], Suspension ferrous sulfate 325 mg Take 1 tablet by 90 tablet 3 019 12/20/2019 (65 mg iron) Tablet, mouth daily. Delayed Release (E.C.) ibandronate (BONIVA) 150 Take 1 tablet by 3 tablet 3 11/1010/15/2019 mg Tablet mouth every 30 days. Take in AM with full glass of water, on an empty stomach. Do not lie down for 30 min. rOPINIRole (REQUIP) 1 mg Take 3 tablets by 270 tablet 3 08/201810/29/2019 Tablet mouth nightly. fluticasone-salmeterol Inhale 1 puff into 3 Inhaler 3 10/1210/29/2019 (ADVAIR DISKUS) 250-50 the lungs 2 times mcg/dose Disk with daily. Device FLUoxetine (PROZAC) 20 Take 1 tablet by 90 tablet 3 019 10/29/2019 mg Tablet mouth daily. ranitidine (ZANTAC) 150 Take 1 capsule by 180 capsule 3 08/0804/15/2019 mg Capsule mouth 2 times daily. Take before dinner every night. oxybutynin (DITROPAN-XL) Take 1 tablet by 90 tablet 3 07/1405/27/2019 5 mg Tablet Extended Rel mouth daily. 24 hr VENTOLIN HFA 90 INHALE TWO PUFFS BY 18 Inhaler 3 04/13/2018 04/10/2019 mcg/actuation HFA MOUTH EVERY 6 HOURS Aerosol Inhaler NEEDED FOR WHEEZING. USE WITH SPACER esomeprazole (NEXIUM) 40 Take 1 capsule by 180 capsule 3 02/201804/10/2019 mg Capsule, Delayed mouth 2 times daily Release(E.C.)Indications (before meals). : Gastroesophageal reflux disease, esophagitis presence not specified clobetasol (TEMOVATE) Apply scant amount 15 g 0 201612/20/2019 0.05 % Ointment topically to vulva daily as instructed until next appointment in 6-8 weeks. documented as of this encounter H&P Notes Tariq Lindo MD - 03/02/2019 4:14 PM EDT Gastroenterology and Hepatology Pre-Procedure History and Physical Exam Procedure: EGD: Indication: Persistent nausea, and epigastric pain Patient Active Problem List Diagnosis Code ??? [...] Elevated TSH R79.89 ??? Gastroesophageal reflux K21.9 EXAM: HEENT: Airway examined, oropharynx clear Mallampati [...] Associated Diagnosis Comme nts SPECIMEN TO Routine 03/02/2019 6:15 PM Results f or this PATHOLOGY EDT procedure are i n the results section. SPECIMEN TO Routine 03/02/2019 6:15 PM Results f or this PATHOLOGY EDT procedure are i n the results section. SPECIMEN TO Routine 03/02/2019 6:15 PM Results f or this PATHOLOGY EDT procedure are i n the results section. SURGICAL PATHOLOGY Routine 03/02/2019 6:10 PM Res ults for this REPORT EDT procedure are i n the results section. EGD WITH BIOPSY 03/02/2019 5:52 PM dyspepsia / acid (WRVU 2.49) EDT reflux proclear UPPER GI ENDOSCOPY Routine 03/02/2019 5:47 PM Res ults for this EDT procedure are i n the results section. documented in this encounter Results Specimen to Pathology (03/02/2019 6:15 PM EDT) Specimen Anatomical Collection Method Collection Time Receive d Time (Source) Location / / Volume Laterality AP Specimen 03/02/2019 6:15 PM 9 6:44 EDT PM EDT Narrative [facility] - 03/02/2019 6:44 PM EDT Specimen requisition ordered. ??Separate Pathology report to follow Resulting Agency Comment Spec In Lab L Julio Lindo MD PATHOLOGY/CYTOLOGY ORDERABLE S Performing Organization Address [facility]/[place] [address] Specimen to Pathology (03/02/2019 6:15 PM EDT) Specimen Anatomical Collection Method Collection Time Receive d Time (Source) Location / / Volume Laterality AP Specimen 03/02/2019 6:15 PM 9 6:44 EDT PM EDT Narrative [facility] - 03/02/2019 6:44 PM EDT Specimen requisition ordered. ??Separate Pathology report to follow Resulting Agency Comment Spec In Lab L Julio Lindo MD PATHOLOGY/CYTOLOGY ORDERABLE S Performing Organization Address [facility] [place] [address] Specimen to Pathology (03/02/2019 6:15 PM EDT) Specimen Anatomical Collection Method Collection Time Receive d Time (Source) Location / / Volume Laterality AP Specimen 03/02/2019 6:15 PM 9 6:44 EDT PM EDT Narrative [facility] - 03/02/2019 6:44 PM EDT Specimen requisition ordered. ??Separate Pathology report to follow Resulting Agency Comment Spec In Lab L Julio Lindo MD PATHOLOGY/CYTOLOGY ORDERABLE S Performing Organization Address City/[facility] [place] [address] Surgical Pathology Report (03/02/2019 6:10 PM EDT) Component Value Ref Test Analysis Performed At Patholo gist Range Method Time Signature Surgical [id number] ? Location: 4T; EA10; A DIXIE Pathology CORKY Report The signing pathologist has (i) examined the relevant preparation(s) for the [facility] specimen(s) and (ii) rendered or confirmed the diagnosis(es) . HOSPITAL LABORATORY . ?Surgic al Pathology DIAGNOSIS A - Distal esophagus, ?? biopsy: Esophageal squamous mucosa within normal limits. B - Proximal esophagus, ?? biopsy: Esophageal squamous mucosa with bacterial and fu ngal colonization in detached squamous cells. GMS and PAS stains are posit noel for fungal hyphae and spores, consistent with Shabana organism. C - Gastric fundus, ??polypectomy: Gastric fundic gland polyp with foveolar hyperplasia. Electronically signed by: ??Blanka Branham MD Verified: ??03/09/2019 ?Pathologist Performed at: ??-[facility] Dept. of Pathology, [place], [place] ADDITIONAL STUDIES GMS and PAS stains CLINICAL INFORMATION Specimen Submitted: A - Distal esophagus B - Proximal esophagus C - Polyp gastric fundus Clinical History and Diagnosis: 68 year-old female, history of dyspepsia and dysphagia SPECIMEN PROCESSING A - Labeled/Fixative: Distal esophagus, formalin. Quantity/Size: Four, ranging from 0.2-0.5 cm. Tissue Description: Soft, zepeda-pink and translucent tissues. Sections/Processing: Submitted en toto ??in 1 cassette labeled A1. B - Labeled/Fixative: Proximal esophagus, formalin. Quantity/Size: Five, ranging from 0.3-0.6 cm. Tissue Description: Soft, zepeda-red and translucent tissues. Sections/Processing: Submitted en toto ??in 1 cassette labeled B1. C - Labeled/Fixative: Polyp gastric fundus, formalin. Quantity/Size: Three, ranging from 0.2-0.5 cm. Tissue Description: Soft, zepeda-pink and hemorrhagic polypoid tissue. Sections/Processing: Submitted en toto ??in 1 cassette labeled C1. ??apb Specimen (Source) Anatomical Collection Method Collection Time Re ceived Time Location / / Volume Laterality 03/02/2019 6:10 PM EDT L Julio Lindo MD PATHOLOGY/CYTOLOGY ORDERABLE S Performing Organization Address City/State/[place]IP [place] [address] UPPER GI ENDOSCOPY (03/02/2019 5:47 PM EDT) Component Value Ref Test Analysis Performed At [facility] Range Method Time Signature UPPER GI [facility] ENDOSCOPY Endoscopy Procedure Date: 03/02/2019 5:47 PM ? Patient Name: Elida Montez ? Date of : 1950 ? Age: 68 ? Order #: [id number] ? Instrument Name: [id number] ? Procedure: ? Upper GI endoscopy Indications: ? Dyspepsia, Dysphagia Providers: ? Laura Lindo MD, Olga Sharif ? Pamela Valle, ? Retail Security Professional Referring MD: ?Devi Amaya ? MD Shelley Medicines: ? Midazolam 3 mg IV, Fentanyl 100 ? micrograms IV Complications: ? No immediate complications. Procedure: ? Pre-Anesthesia Assessment: ? - Prior to the procedure, a H istory ? and Physical was performed, a nd ? patient medications and aller gies ? were reviewed. The patient is ? competent. The risks and bene fits of ? the procedure and the sedatio n ? options and risks were discus sed with ? the patient. All questions we re ? answered and informed consent was ? obtained. Patient identificat ion and ? proposed procedure were verif ied by ? the physician in the pre-proc edure ? area in the endoscopy suite. Mental ? Status Examination: alert and ? oriented. Airway Examination: normal ? oropharyngeal airway and neck ? mobility. Respiratory Examina tion: ? clear to auscultation. CV ? Examination: normal. ASA Grad e ? Assessment: II - A patient wi th mild ? systemic disease. After revie wing the ? risks and benefits, the patie nt was ? deemed in satisfactory condit ion to ? undergo the procedure. The an esthesia ? plan was to use moderate jose tion / ? analgesia (conscious sedation ). ? Immediately prior to administ ration ? of medications, the patient w as ? re-assessed for adequacy to r eceive ? sedatives. The heart rate, ? respiratory rate, oxygen satu rations, ? blood pressure, adequacy of p ulmonary ? ventilation, and response to care ? were monitored throughout the ? procedure. The physical statu s of the ? patient was re-assessed after the ? procedure. ? The procedure, indications, b enefits, ? risks and alternatives were e xplained ? to the patient. Specifically ? discussed were potential ? complications including, but not ? limited to, bleeding, perfora tion, ? infection, missing a cancer, and ? adverse medication reactions. The ? Endoscope was introduced thro [facility] the ? mouth, and advanced to the ird part ? of duodenum. The patient tole rated ? the procedure well. The upper GI ? endoscopy was accomplished wi out ? difficulty. ? Findings: ? A 2 cm hiatal hernia was found. The proximal extent ? of the gastric folds (end of tubular esophagus) was ? 35 cm from the incisors. The hiatal narrowing was 37 ? cm from the incisors. The Z-line was 35 cm from the ? incisors. Biopsies were obtained from the proximal ? and distal esophagus with cold forceps for histology ? to rule out eosinophilic esophagitis. ? A single 4 mm sessile polyp was found in the gastric ? fundus. The polyp was removed with a cold biopsy ? forceps. Resection and retrieval were complete. ? The examined duodenum was normal. ? Moderate Sedation: ? I was present during the intraservice time as ? documented by the sedation RN. Impression: ?- Etiology for pain and dysphagia not ? seen on this exam. ? - Small hiatal hernia. ? - Biopsies taken to evaluate for ? eosinophilic esophagitis. ? - A single gastric polyp. Res ected ? and retrieved. ? - Normal examined duodenum. Recommendation: ?- Await pathology. ? - Follow-up with Ms. Granados and ? Shelley. ? Attending Participation: ? I personally performed the entire procedure. ? L. Julio Lindo MD 03/02/2019 6:22:03 PM Number of Addenda: 0 Note Initiated On: 03/02/2019 5:47 PM Specimen (Source) Anatomical Collection Method Collection Time Re ceived Time Location / / Volume Laterality 03/02/2019 5:47 PM EDT Allison Granados DYNAMOMETER REPAIRER GENERAL SURGICAL ORDERABLES Performing Organization Address City/State/ZIP Code Phon e Number [employer] documented in this encounter Visit Diagnoses Not on filedocumented in this encounter Active and Recently Administered Medications Times are shown in EDT. PRN Medication Order 02/28/2019 03/01/2019 03/02/2019 fentaNYL 50 mcg/mL multi-dose injection (CANCELED) 1753 (Given - Provider: Olga Valle, RN)1757 (Given - Provider: Olga Valle, RN)180 (Given - Provider: Olga Valle, RN) ONCE PRN, Starting Fri03/02/19 at 1754, Until Fri03/02/19 at 2054, Intra- Operative (Intra-Procedure), Routine midazolam (PF) (VERSED) multi-dose injection (CANCELED) 1753 (Given - Provider: Olga Valle RN)1757 (Given - Provider: Olga Valle, RN)1802 (Given - Provider: Olga Valle, RN) ONCE PRN, Starting Fri03/02/19 at 1754, Until Fri03/02/19 at 2054, Intra- Operative (Intra-Procedure), Routine documented in this encounter Care Teams Forest Officer Relationship Specialty Start Date End Date Allison Granados APRN PCP - General 04/22/14 06/27/[address] [facility] [address] [place] [address] documented as of this encounter
--- OUTSIDE RECORDS SUMMARY | 2021-12-28 04:08 | XMS_ITS | Encounter Summary ---
:1950 Author Organization [facility] Address [address] [place] [address] Care Team Providers Name Role Phone Roberta, Allison Rain APRN Primary Care Provider [phone] Reason for Visit Reason Comments URI for 2 weeks Cough coughing up green and yellow mucus Shortness of Breath Other chest feels tight Arm Pain on and off yesterday and thi s a.m. 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 sinusitis [address] [place] [address] GENERAL INTERNAL [phone] [place], [place] [address] (Wo rk) Social History Tobacco [...] Sign Reading Time Taken Comments Blood Pressure 117/62 08/04/2018 9:26 AM EST Pulse 70 08/04/2018 9:26 AM EST Temperature 36.6 ??C (97.9 ??F) 08/04/2018 9:26 AM EST Respiratory Rate - - Oxygen Saturation 99% 08/04/2018 9:26 AM EST Inhaled Oxygen Concentration - - Weight 53.5 kg (118 lb) 08/04/2018 9:26 AM EST Height 165.1 cm (5' 5) 08/04/2018 9:26 AM EST reported Body Mass Index 19.64 08/04/2018 9:26 AM EST documented in this encounter Progress Notes Allison Granados APRN - 08/04/2018 9:30 AM EST PCP: Allison Granados APRN Chief Complaint Patient presents with ??? URI for 2 weeks ??? Cough coughing up green and yellow mucus ??? Shortness of Breath ??? Other chest feels tight ??? Arm Pain on and off yesterday and this a.m. SUBJECTIVE: Elida Montez is a 67 y.o. female who presents for URI for about 2 weeks. She has been coughing upa lot of yellow sputum. She has chest tightness with taking deep breath and has sinus congestion. She has been using her inhalers every day and the do help. Review of Systems Constitutional: Positive for fatigue. Negative for chills, diaphoresis and fever. HENT: Positive for congestion, ear pain, rhinorrhea, sinus pressure and voice change. Negative for sore throat. Respiratory: Positive for cough and shortness of breath. Negative for wheezing. Cardiovascular: Negative for chest pain and palpitations. Gastrointestinal: Negative for abdominal pain, diarrhea and vomiting. Skin: Negative for rash. Neurological: Negative for light-headedness and headaches. Hematological: Negative for adenopathy. Allergies Allergen Reactions ??? Codeine Nausea And Vomiting Current Outpatient Medications Medication Sig Dispense Refill ??? oxybutynin (DITROPAN-XL) 5 mg Tablet Extended Rel 24 hr Take 1 tablet by mouth daily. 90 tablet 3 ??? VENTOLIN HFA 90 mcg/actuation HFA Aerosol Inhaler INHALE TWO PUFFS BY MOUTH EVERY 6 HOURS NEEDED FOR WHEEZING. USE WITH SPACER 18 Inhaler 3 ??? esomeprazole (NEXIUM) 40 mg Capsule, Delayed Release(E.C.) Take 1 capsule by mouth 2 times daily(before meals). 180 capsule 3 ??? FLUoxetine (PROZAC) 20 mg Tablet Take 1 tablet by mouth daily. 90 tablet 1 ??? hyoscyamine (LEVSIN) 0.125 mg Tablet Take 1 tablet by mouth every 6 hours as needed for Cramping. 30 tablet 5 ??? rOPINIRole (REQUIP) 1 mg Tablet Take 3 tablets by mouth nightly. 180 tablet 3 ??? ibandronate (BONIVA) 150 mg Tablet TAKE ONE TABLET BY MOUTH EVERY 30 DAYS , TAKE IN THE MORNING WITH A FULL GLASS OF WATER ON AN EMPTY STOMACH, DO NOT LIE DOWN FOR 30 MINUTES 3 tablet 3 ??? fluticasone-salmeterol (ADVAIR DISKUS) 250-50 mcg/dose Disk with Device Inhale 1 puff into the lungs 2 times daily. 3 Inhaler 3 ??? UNABLE TO FIND Over the counter, Simethicone 125mg. antigas softgels PRN ??? ranitidine (ZANTAC) 150 mg Capsule Take 1 capsule by mouth 2 times daily. Take before dinner every night. (Patient taking differently: Take 150 mg by mouth nightly. Take before dinner every night.)180 capsule 3 ??? triamcinolone (KENALOG) 0.1 % Ointment Apply scant amount topically to affected area daily untilsymptoms resolve. Then decrease to every other day, then 1-2 times/ week. 15 g 0 ??? clobetasol (TEMOVATE) 0.05 % Ointment Apply scant amount topically to vulva daily as instructed until next appointment in 6-8 weeks. 15 g 0 ??? ferrous sulfate 325 mg (65 mg iron) Tablet, Delayed Release (E.C.) Take 1 tablet by mouth daily.(Patient not taking: Reported on 08/04/2018) 90 tablet 3 No current facility-administered medications for this visit. [...] Elevated TSH R79.89 ??? Gastroesophageal reflux K21.9 OBJECTIVE: Vitals: 08/04/18 0926 BP: 117/62 BP Location (NBP): Right arm Patient Position: Sitting BP Cuff Sizes: Adult (25-34 cm) Pulse: 70 Temp: 36.6 ??C (97.9 ??F) TempSrc: Oral SpO2: 99% Weight: 53.5 kg (118 lb) Height: 165.1 cm (5' 5) PF: 260 L/min PHYSICAL EXAM: Physical Exam Constitutional: She is oriented to person, place, and time. She appears well- developed and well-nourished. HENT: Head: Normocephalic and atraumatic. Right Ear: Tympanic membrane, external ear and ear canal normal. Left Ear: Tympanic membrane, external ear and ear canal normal. Nose: Right sinus exhibits maxillary sinus tenderness. Right sinus exhibits no frontal sinus tenderness. Left sinus exhibits no maxillary sinus tenderness and no frontal sinus tenderness. Mouth/Throat: Oropharynx is clear and moist. Eyes: Pupils are equal, round, and reactive to light. Conjunctivae are normal. Cardiovascular: Normal rate, regular rhythm and normal heart sounds. Pulmonary/Chest: Effort normal and breath sounds normal. No respiratory distress. She has no wheezes. She has no rales. Lymphadenopathy: She has no cervical adenopathy. Neurological: She is alert and oriented to person, place, and time. Skin: Skin is warm and dry. Psychiatric: She has a normal mood and affect. ASSESSMENT & PLAN: Elida was seen today for uri, cough, shortness of breath, other and arm pain. Diagnoses and all orders for this visit: Acute bacterial sinusitis - amoxicillin-clavulanate (AUGMENTIN) 875-125 mg Tablet; Take 1 tablet by mouth 2 times daily for 7 days. - continue with inhalers every 4 hours as needed for asthma exacerbation as well. documented in this encounter Plan of Treatment Not on filedocumented as of this encounter Visit Diagnoses Diagnosis Acute bacterial sinusitis Acute sinusitis, unspecified documented in this encounter Care Teams Warehouse Engineer Relationship Specialty Start Date End Date Allison Granados APRN PCP - General 04/22/14 06/27/21 [facility] [address] [place] [address] documented as of this encounter
--- OUTSIDE RECORDS SUMMARY | 2021-12-28 04:08 | XMS_ITS | Encounter Summary ---
:1950 Author Organization [facility] Address [address] [place] [address] Care Team Providers Name Role Phone Allison Granados ACCOUNTING POLICY CONSULTANT Primary Care Provider [phone] Reason for Visit Reason Comments Cough ED followup Encounter Details Date Type Department Care Team Description 11/02/2018 Office Visit Internal Medicine at RobertaAllison, Cough, persistent [address] ACCOUNTING POLICY CONSULTANT [address] [place] [address] GENERAL INTERNAL [phone] [place], [place] [address] (Wo rk) Social History Tobacco [...] Sign Reading Time Taken Comments Blood Pressure 115/68 11/02/2018 10:48 AM EDT Pulse 64 11/02/2018 10:48 AM EDT Temperature 36.8 ??C (98.2 ??F) 11/02/2018 10:48 AM EDT Respiratory Rate - - Oxygen Saturation 99% 11/02/2018 10:48 AM EDT Inhaled Oxygen Concentration - - Weight - - Height 152.4 cm (5') 11/02/2018 10:48 AM EDT reported Body Mass Index - - documented in this encounter Progress Notes Allison Granados APRN - 11/02/2018 11:00 AM EDT PCP: Allison Granados APRN Chief Complaint Patient presents with ??? Cough ED followup SUBJECTIVE: Elida Montez is a 68 y.o. female who presents for follow up on her cough. She reports that the cough had gotten better and then the allergies made it worse again. Hand tremors - still comes and goes. She is trying not to notice it. She reports that she has not lost strentgth in her hands. Wt Readings from Last 3 Encounters: 10/09/18 54.2 kg (119 lb 6.4 oz) 09/25/18 51.7 kg (114 lb) 09/04/18 52.3 kg (115 lb 3.2 oz) Review of Systems Constitutional: Negative for activity change, fatigue and fever. Respiratory: Negative for cough, chest tightness and shortness of breath. Cardiovascular: Negative for chest pain, palpitations and leg swelling. Neurological: Negative for dizziness, light-headedness and headaches. Allergies Allergen Reactions ??? Codeine Nausea And Vomiting ??? Unable To Find [Unclassified Drug] Seasonal Current Outpatient Medications Medication Sig Dispense Refill ??? fluticasone-salmeterol (ADVAIR DISKUS) 250-50 mcg/dose Disk with Device Inhale 1 puff into the lungs 2 times daily. 3 Inhaler 3 ??? FLUoxetine (PROZAC) 20 mg Tablet Take 1 tablet by mouth daily. 90 tablet 3 ??? ranitidine (ZANTAC) 150 mg Capsule Take 1 capsule by mouth 2 times daily. Take before dinner every night. 180 capsule 3 ??? oxybutynin (DITROPAN-XL) 5 mg Tablet [...] times daily(before meals). 180 capsule 3 ??? hyoscyamine (LEVSIN) 0.125 mg Tablet [...] FOR 30 MINUTES 3 tablet 3 ??? UNABLE TO FIND Over the counter, Simethicone 125mg. antigas softgels PRN ??? ferrous sulfate 325 mg (65 mg iron) Tablet, Delayed Release (E.C.) Take 1 tablet by mouth daily.90 tablet 3 ??? triamcinolone (KENALOG) 0.1 % Ointment Apply scant amount topically to affected area daily untilsymptoms resolve. Then decrease to every other day, then 1-2 times/ week. 15 g 0 ??? clobetasol (TEMOVATE) 0.05 % Ointment Apply scant amount topically to vulva daily as instructed until next appointment in 6-8 weeks. 15 g 0 ??? azithromycin (ZITHROMAX) 250 mg Tablet Day 1: Take 2 tablets daily, Day 2 - 5: Take one tablet daily (Patient not taking: Reported on 11/02/2018) 6 tablet 0 ??? benzonatate (TESSALON) 100 mg Capsule Take 1 capsule by mouth 3 times daily as needed for Cough.(Patient not taking: Reported on 11/02/2018) 30 tablet 0 No current facility-administered medications for this [...] R79.89 ??? Gastroesophageal reflux K21.9 OBJECTIVE: Vitals: 11/02/18 1048 BP: 115/68 BP Location (NBP): Left arm Patient Position: Sitting BP Cuff Sizes: Adult (25-34 cm) Pulse: 64 Temp: 36.8 ??C (98.2 ??F) TempSrc: Oral SpO2: 99% Height: 152.4 cm (5') PHYSICAL EXAM: Physical Exam Constitutional: She is oriented to person, place, and time. She appears well- developed and well-nourished. No distress. HENT: Head: Normocephalic and atraumatic. Eyes: Conjunctivae are normal. Cardiovascular: Normal rate, regular rhythm and normal heart sounds. No murmur heard. Pulmonary/Chest: Effort normal and breath sounds normal. She has no wheezes. She has no rales. She exhibits no tenderness. Neurological: She is alert and oriented to person, place, and time. Skin: Skin is warm and dry. Psychiatric: She has a normal mood and affect. Her behavior is normal. Judgment and thought content normal. Vitals reviewed. ASSESSMENT & PLAN: Elida was seen today for cough. Diagnoses and all orders for this visit: Cough, persistent - improved, doing well at this time. documented in this encounter Plan of Treatment Not on filedocumented as of this encounter Visit Diagnoses Diagnosis Cough, persistent Cough documented in this encounter Care Teams Air Conditioning Technician Relationship Specialty Start Date End Date Allison Granados APRN PCP - General 04/22/14 06/27/[address] [facility] [address] [place] [address] documented as of this encounter
--- OUTSIDE RECORDS SUMMARY | 2021-12-28 04:08 | XMS_ITS | Encounter Summary ---
:1950 Author Organization [facility] [place] [address] Care Team Providers Name Role Phone Allison Granados APRN Primary Care Provider [phone] Reason for Visit Reason Onset Date Comments Triage 07/12/2019 Encounter Details Date Type Department Care Team Description 07/12/2019 [facility]phone [facility] Triage [address] [place] [address] Social History Tobacco Use Types [...] this encounter Miscellaneous Notes Telephone Encounter - Meche Schmitz RN - 07/12/2019 9:27 AM EST Elida states that she is very tired and my stomach's been bothering me too. She denies fever, nausea, vomiting. She has no problem waiting until Friday to see VL. Scheduled at 11:15 07/14/19 Telephone Encounter - Julienne Morales - 07/12/2019 8:53 AM EST Message: Pt called stating she is fatigued and is not feeling well and would like to be seen today or tomorrow by Allison Granados APRN only. This agent was unable to find an appt with pcp until Friday. Please call pt back to discuss symptoms. Ask caller their first and last name and relationship to the patient: Pt Best time to call back: any Ok to leave a message: yes Ok to send my- message: no Offered Appointment: MA/Nurse/[place] contacted via: Message: y Call: n Pager: n documented in this encounter Plan of Treatment Not on filedocumented as of this encounter Visit Diagnoses Not on filedocumented in this encounter Care Teams Bulk Sealer Operator Relationship Specialty Start Date End Date Allison Granados APRN PCP - General 04/22/14 06/27/21 [facility] [address] [place] [address] documented as of this encounter
--- OUTSIDE RECORDS SUMMARY | 2021-12-28 04:08 | XMS_ITS | Encounter Summary ---
:1950 Author Organization [facility] [place] [address] Care Team Providers Name Role Phone Allison Granados APRN Primary Care Provider [phone] Reason for Referral Diagnostic Test (Routine) - Closed Specialty Diagnoses / Procedures Referred By Contact Refer red To Contact Radiology Diagnoses New daily persistent headache Darien Woodruff DO [facility] Rad Ct Scan Procedures CT Head wo Contrast (Generic) [facility] [address] Doty [address] [address] Referral ID Status Reason Start Date Expiration Date Visits V isits Requested Authorized [id number] Closed Specialty 06/17/2018 06/17/2019 1 1 Service Requested Reason for Visit Diagnostic Test (Routine) - Closed Specialty Diagnoses / Procedures Referred By Contact Refer red To Contact Radiology Diagnoses New daily persistent headache Darien Woodruff DO [facility] Rad Ct Scan Procedures CT Head wo Contrast (Generic) [facility] [address] Doty [address] [address] Referral ID Status Reason Start Date Expiration Date Visits V isits Requested Authorized [id number] Closed Specialty 06/17/2018 06/17/2019 1 1 Service Requested Encounter Details Date Type Department Care Team Description 06/19/[address] Scan at [facility] Lorri Moran, New daily persistent [address] [facility] [address] [facility] [id number] GENERAL INTERNAL [phone] MED-LYME [place], [place] [address] Social History Tobacco Use Types [...] LLQ as needed for abdominal pain Cramping. VENTOLIN HFA 90 INHALE TWO PUFFS BY 18 Inhaler 3 04/13/2018 04/10/2019 mcg/actuation HFA MOUTH EVERY 6 HOURS Aerosol Inhaler NEEDED FOR WHEEZING. USE WITH SPACER esomeprazole (NEXIUM) 40 Take 1 capsule by 180 capsule 3 02/201804/10/2019 mg Capsule, Delayed mouth 2 times daily Release(E.C.)Indications (before meals). : Gastroesophageal reflux disease, esophagitis presence not specified FLUoxetine (PROZAC) 20 Take 1 tablet by 90 tablet 1 018 10/12/2018 mg Tablet mouth daily. rOPINIRole (REQUIP) 1 mg Take 3 tablets by 180 tablet 3 02/0511/05/2018 Tablet mouth nightly. ibandronate (BONIVA) 150 TAKE ONE TABLET BY 3 tablet 3 11/10/2018 mg Tablet MOUTH EVERY 30 DAYS , TAKE IN THE MORNING WITH A FULL GLASS OF WATER ON AN EMPTY STOMACH, DO NOT LIE DOWN FOR 30 MINUTES fluticasone-salmeterol Inhale 1 puff into 3 Inhaler 3 09/2910/12/2018 (ADVAIR DISKUS) 250-50 the lungs 2 times mcg/dose Disk with daily. Device UNABLE TO FIND Over the counter, 0 Simethicone 125mg. antigas softgels PRN oxybutynin (DITROPAN-XL) Take 1 tablet by 90 tablet 3 07/0807/14/2018 5 mg Tablet Extended Rel mouth daily. 24 hr ferrous sulfate 325 mg Take 1 tablet by 90 tablet 3 017 01/05/2019 (65 mg iron) Tablet, mouth daily. Delayed Release (E.C.) ranitidine (ZANTAC) 150 Take 1 capsule by 180 capsule 3 06/0609/02/2018 mg Capsule mouth 2 times daily. Take before dinner every night. triamcinolone (KENALOG) Apply scant amount 15 g 0 09/0 11/201612/25/2018 0.1 % Ointment topically to affected area daily until symptoms resolve. Then decrease to every other day, then 1-2 times/ week. clobetasol (TEMOVATE) Apply scant amount 15 g 0 201612/20/2019 0.05 % Ointment topically to vulva daily as instructed until next appointment in 6-8 weeks. documented as of this encounter Plan of Treatment Not on filedocumented as of this encounter Procedures Procedure Name Priority Date/Time Associated Diagnosis Comme nts CT HEAD WO CONTRAST Routine 06/19/2018 8:25 AM New daily persi stent Results for this (GENERIC) EST headache procedure are i n the results section. documented in this encounter Results CT Head wo Contrast (Generic) (06/19/2018 8:25 AM EST) Anatomical Region Laterality Modality Head Computed Tomography Specimen (Source) Anatomical Location Collection Method / Collectio n Time Received Time / Laterality Volume Impressions 06/19/2018 10:40 AM EST No hemorrhage or other acute intracranial abnormalities. I have personally reviewed the image(s) and the residents interpretation and agree with the findings, Quita Guerrier at 06/19/2018 10:40 AM Narrative 06/19/2018 10:40 AM EST EXAMINATION: CT HEAD WO CONTRAST (GENERIC) CLINICAL HISTORY: 67 yr old female with new persistant and severe occipital head pain s/p a recent fall with trauma to th e occiptal region TECHNIQUE: CT head performed without intravenous co ntrast administration. COMPARISON: MRI brain 05/06/2003 FINDINGS: No mass, hemorrhage, acute infarction. N ormal gross-white differentiation. Normal ventricles. Imaged portions of the Sinuses are clear . Normal osseous and soft tissue structures. Procedure Note Quita Guerrier MD - 06/19/2018Formatt ing of this note might be different from the original. EXAMINATION: CT HEAD WO CONTRAST (GENERI C) CLINICAL HISTORY: 67 yr old female with new persistant and severe occipital head pain s/p a recent fall with trauma to th e occiptal region TECHNIQUE: CT head performed without intravenous co ntrast administration. COMPARISON: MRI brain 05/06/2003 FINDINGS: No mass, hemorrhage, acute infarction. N ormal gross-white differentiation. Normal ventricles. Imaged portions of the Sinuses are clear . Normal osseous and soft tissue structures. IMPRESSION No hemorrhage or other acute intracrania l abnormalities. I have personally reviewed the image(s) and the residents interpretation and agree with the findings, Quita Guerrier at 06/19/2018 10:40 AM Lorri Moran MD IMG CT ORDERABLES documented in this encounter Visit Diagnoses Diagnosis New daily persistent headache documented in this encounter Care Teams Sales Project Coordinator Relationship Specialty Start Date End Date Allison Granados APRN PCP - General 04/22/14 06/27/[address] [facility] [address] ROD INTERNAL [facility] [facility] [place] [address] documented as of this encounter
--- OUTSIDE RECORDS SUMMARY | 2021-12-28 04:08 | XMS_ITS | Encounter Summary ---
:1950 Author Organization [facility] Address [address] [place] [address] Care Team Providers Name Role Phone Allison Granados SOILA Primary Care Provider [phone] Reason for Visit Reason Comments Fatigue BEEN FEELING VERY TIRED Encounter Details Date Type Department Care Team Description 07/14/2019 Office Visit Internal Medicine at Roberta Allison Fa larryue, unspecified [address], SOILA type (Primary Dx) [address] [place] [address] GENERAL INTERNAL [phone] MED-[place], [place] [address] (Wo rk) Social History Tobacco [...] Sign Reading Time Taken Comments Blood Pressure 119/66 07/14/2019 11:22 AM EST Pulse 57 07/14/2019 11:22 AM EST Temperature 36.9 ??C (98.4 ??F) 07/14/2019 11:22 AM EST Respiratory Rate - - Oxygen Saturation 99% 07/14/2019 11:22 AM EST Inhaled Oxygen Concentration - - Weight 56.9 kg (125 lb 6.4 oz) 07/14/2019 11:22 AM EST Height 153.3 cm (5' 0.35) 07/14/2019 11:22 AM EST REPO RTED Body Mass Index 24.2 07/14/2019 11:22 AM EST documented in this encounter Progress Notes Allison Granados APRN - 07/14/2019 11:30 AM EST PCP: Allison Granados APRN Chief Complaint Patient presents with ??? Fatigue BEEN FEELING VERY TIRED SUBJECTIVE: Elida Montez is a 68 y.o. female who presents for fatigue and tiredness that has been ongoing. She is waking up in the night. She has a lot of stomach issues that wake her up. Wt Readings from Last 3 Encounters: 07/14/19 56.9 kg (125 lb 6.4 oz) 05/27/19 58 kg (127 lb 12.8 oz) 04/15/19 57.3 kg (126 lb 6.4 oz) Review of Systems Constitutional: Positive for fatigue. Negative for chills, diaphoresis and fever. HENT: Negative for rhinorrhea, sinus pressure, sinus pain, sore throat and voice change. Respiratory: Positive for cough and chest tightness (asthma). Negative for shortness of breath. Gastrointestinal: Positive for abdominal distention, abdominal pain (worse recently) and nausea. Negative for diarrhea and vomiting. Neurological: Positive for headaches (occasional but not worse). Negative for dizziness, weakness and light-headedness. Allergies Allergen Reactions ??? Codeine Nausea And [...] 2 ??? fluticasone propionate (FLONASE) 50 mcg/actuation [place], Suspension 1 spray by Each Nare route [...] B37.81 ??? Hiatal hernia K44.9 OBJECTIVE: Vitals: 07/14/19 1122 BP: 119/66 BP Location (NBP): Left arm Patient Position: Sitting BP Cuff Sizes: Adult (25-34 cm) Pulse: 57 Temp: 36.9 ??C (98.4 ??F) TempSrc: Oral SpO2: 99% Weight: 56.9 kg (125 lb 6.4 oz) Height: 153.3 cm (5' 0.35) PHYSICAL EXAM: Physical Exam Vitals signs reviewed. [...] & PLAN: Elida was seen today for fatigue. Diagnoses and all orders for this visit: Fatigue, unspecified type - CBC (with Diff); Future - Comprehensive metabolic panel (non-fasting); Future - Lactate Dehydrogenase; Future - TSH; Future - TSH - Lactate Dehydrogenase - Comprehensive metabolic panel (non-fasting) - CBC (with Diff) - Hemogram - Differential, Automated - will do labs to look for underlying cause of fatigue. If negative, will not recommend further testing at this time. documented in this encounter Plan of Treatment Not on filedocumented as of this encounter Procedures Procedure Name Priority Date/Time Associated Comments Diagnosis HEMOGRAM Routine 07/14/2019 12:06 Fatigue, Results for this PM EST unspecified type procedure a re in the results section. DIFFERENTIAL, Routine 07/14/2019 12:06 Fatigue, Results fo r this AUTOMATED PM EST unspecified type procedure a re in the results section. HC CBC,PLT & AUTO DIFF Routine 07/14/2019 12:06 Fatigue, PM EST unspecified type HC VENIPUNCTURE Routine 07/14/2019 12:06 Fatigue, Results for this PM EST unspecified type procedure a re in the results section. HC LACTIC Routine 07/14/2019 12:06 Fatigue, Results for this DEHYDROGENASE PM EST unspecified type procedure are in the results section. COMPREHENSIVE Routine 07/14/2019 12:06 Fatigue, Results fo r this METABOLIC PANEL PM EST unspecified type procedur e are in (NON-FASTING) the results section. documented in this encounter Results (ABNORMAL) Differential, Automated (07/14/2019 12:06 PM EST) [facility] gist Method Time Signature Neutrophils % 54.1 % [facility] Neutr Abs (ANC) 4.12 1.70 - [facility] 6.10 [facility] x10(3)/[facility] LABORATORY Lymphocytes % 23.6 % [facility] Lymphocytes Abs 1.8 0.9 - 3.2 [facility] x10(3)/[facility] LABORATORY Monocytes % 15.2 % [facility] Monocyte Abs 1.2 (H) 0.3 - 0.9 [facility] x10(3)/[facility] LABORATORY Eosinophils % 4.9 % [facility] Eosinophils Abs 0.4 0.0 - 0.4 [facility] x10(3)/[facility] LABORATORY Basophils % 1.4 % [facility] Basophils Abs 0.1 0.0 - 0.1 [facility] x10(3)/[facility] LABORATORY Immature Gran % 0.80 % [facility] Comment: Immature granulocytes(IG's)percentage an d absolute count will include metamyelocytes, myelocytes, and promyelo cytes. Blood smears from CBCs yielding IG's will be scanned manually for jeanne wolff. If this scan disagrees with the automated IG or if promyelocytes are not ed, a manual differential will be performed. Zena Gran Abs 0.06 (H) 0.00 - 0.04 x10(3)/[facility] LABORATORY Specimen Anatomical Collection Method Collection Time Receive d Time (Source) Location / / Volume Laterality Blood specimen 07/14/2019 12:06 0 7:36 (specimen) PM EST PM EST Resulting Agency Comment Spec In Lab Allison Granados LAND DEGRADATION ANALYST HEMATOLOGY ORDERABLES Performing Organization Address City/State/[place] [address] Hemogram (07/14/2019 12:06 PM EST) P athologist Signature WBC 7.6 4.0 - 9.5 [facility] x10(3)/[facility] LABORATORY RBC 4.80 4.00 - [facility] 5.21 [facility] x10(6)/[facility] LABORATORY Hemoglobin 14.4 11.7 - [facility] 15.5 gm/dL [facility] LABORATORY Hematocrit 43.5 35.7 - [facility] 45.8 % [facility]AT[facility] MCV 90.6 82.6 - [facility]4 [facility] MCH 30.0 27.1 - [facility] 32.0 pg [facility] LABORATORY MCHC 33.1 31.7 - [facility] 35.0 gm/dL [facility] Platelets 282 145 - 357 [facility] x10(3)/[facility] LABORATORY RDWSD 41.5 37.0 - [facility] 46.0 [facility] LABORATORY RDWCV 12.5 11.5 - [facility] 14.1 % [facility] LABORATORY MPV 10.5 7.6 - 12.9 [facility] LABORATORY nRBC % Auto 0.0 % [facility] nRBC Abs Auto 0.000 0.000 - [facility] 0.000 [facility] x10(3)/[facility] LABORATORY Specimen Anatomical Collection Method Collection Time Receive d Time (Source) Location / / Volume Laterality Blood specimen 07/14/2019 12:06 0 7:36 (specimen) PM EST PM EST Resulting Agency Comment Spec In Lab Allison Granados APRN HEMATOLOGY ORDERABLES Performing Organization Address City/[facility]/[place] [address] TSH (07/14/2019 12:06 PM EST) P athologist Signature TSH 2.08 0.27 - 4.20 [facility] mcIU/mL [facility] Specimen Anatomical Collection Method Collection Time Receive d Time (Source) Location / / Volume Laterality Blood specimen 07/14/2019 12:06 0 8:06 (specimen) PM EST PM EST Resulting Agency Comment Spec In Lab Allison Granados APRN CHEMISTRY ORDERABLES Performing Organization Address City/[facility]/[place] [address] Lactate Dehydrogenase (07/14/2019 12:06 PM EST) athologist Signature LDH 182 110 - 220 [facility] unit/L [facility] Specimen Anatomical Collection Method Collection Time Receive d Time (Source) Location / / Volume Laterality Blood specimen 07/14/2019 12:06 0 8:06 (specimen) PM EST PM EST Resulting Agency Comment Spec In Lab Allison Granados APRN CHEMISTRY ORDERABLES Performing Organization Address City/[facility]/ZIP [facility] [place] [address] (ABNORMAL) Comprehensive metabolic panel (non-fasting) (07/14/2019 12:06 PM EST) athologist Signature Glucose Lvl 81 65 - 199 [facility] mg/dL [facility] Comment: Diabetes: >=200 mg/dL plus symp toms BUN 18 8 - 18 mg/dL [facility] Creatinine 0.69 (L) 0.70 - 1.20 mg/dL [facility] Sodium 138 135 - 145 mmol/L [facility] Potassium 4.3 3.5 - 5.0 mmol/L [facility] Comment: Please note: ??Patients with WBC >100,00 0 may have falsely elevated Potassium levels. ??For accurate Potassium quantif ication in these patients send serum separator tube (gold top) for subsequent determinations. ??Contact the Clinical Chemistry Laboratory if there are any qu estions. Chloride 104 98 - 107 mmol/L [facility] CO2 21 (L) 22 - 31 mmol/L [facility] Anion Gap 13 5 - 15 mmol/L [facility] Calcium 8.9 8.5 - 10.5 mg/dL [facility] Total Protein 6.8 6.1 - 8.0 gm/dL [facility] Albumin 4.3 3.2 - 5.2 gm/dL [facility] AST 18 0 - 30 unit/L [facility] ALT 22 0 - 30 unit/L [facility] Alk Phos 66 35 - 105 unit/L [facility] Total Bilirubin 0.9 0.2 - 1.3 mg/dL [facility] Estimated GFR 88 >=60 mL/min/1.73 m?? [facility] Comment: The eGFR was calculated using the CKD-EP I equation. As with all creatinine based estimates of kidney function, eGFR values calculated with the CKD-EPI equation are not accurate in patients wi th acute kidney failure, extremes of body mass or the acutely ill. http://[employer]/[facility] [place] eGFR 102 >=60 mL/min/1.73 m?? [facility] Comment: The eGFR was calculated using the CKD-EP I equation. As with all creatinine based estimates of kidney function, eGFR values calculated with the CKD-EPI equation are not accurate in patients wi th acute kidney failure, extremes of body mass or the acutely ill. http://[employer]/[facility] [place] Specimen Anatomical Collection Method Collection Time Receive d Time (Source) Location / / Volume Laterality Blood specimen 07/14/2019 12:06 0 8:06 (specimen) PM EST PM EST Resulting Agency Comment Spec In Lab Allison Granados APRN CHEMISTRY ORDERABLES Performing Organization Address City/State/[place] [address] documented in this encounter Visit Diagnoses Diagnosis Fatigue, unspecified type - Primary documented in this encounter Care Teams Job Change Crew Member Relationship Specialty Start Date End Date Allison Granados APRN PCP - General 04/22/14 06/27/[address] [facility] [place] [address] documented as of this encounter
--- OUTSIDE RECORDS SUMMARY | 2021-12-28 04:08 | XMS_ITS | Encounter Summary ---
:1950 Author Organization [facility] [place] [address] Care Team Providers Name Role Phone Allison Granados APRN Primary Care Provider [phone] Encounter Details Date Type Department Care Team Description 06/24/2018 Telephone Cardiology Darien Woodruff DO [facility] [place] [address] GENERAL INTERNAL MEDICINE [phone] [place], [place] [address] (Wo rk) Social History Tobacco [...] this encounter Miscellaneous Notes Telephone Encounter - Darien Woodruff DO - 06/24/2018 1:37 PM EST Discussed imaging results with patient today. She reports that DAVIS have slowly improved and that she denies any DAVIS at all today. Will continue to watch for now and she will call the clinic if anything changes. Darien Woodruff DO 06/24/18 1:38 PM documented in this encounter Plan of Treatment Not on filedocumented as of this encounter Visit Diagnoses Not on filedocumented in this encounter Care Teams Upholstery Repairer Relationship Specialty Start Date End Date Allison Granados, WORKPLACE TRAINER AND ASSESSOR PCP - General 04/22/14 06/27/21 [facility] [place] [address] documented as of this encounter
--- OUTSIDE RECORDS SUMMARY | 2021-12-28 04:08 | XMS_ITS | Encounter Summary ---
:1950 Author Organization [facility] [place] [address] Care Team Providers Name Role Phone Allison Granados APRN Primary Care Provider [phone] Reason for Visit Reason Onset Date Comments Prior Authorization 10/12/2018 FLUoxetine HCl 20MG tablets Encounter Details Date Type Department Care Team Description 10/12/2018 Telephone Internal Medicine at Doris Villarreal Pr ior Authorization [facility] (FLUoxetine HCl 20MG [address] tablets) [place] [address] Social History Tobacco Use Types Packs/Day Years [...] this encounter Miscellaneous Notes Telephone Encounter - Doris Villarreal CMA - 10/13/2018 12:47 PM EDT Medication Prior Authorization for Primary Care Approved: Fluoxetine Start Date: 10/12/18 End Date: 10/13/2019 Case/Reference #: [id number] Telephone Encounter - Doris Villarreal CMA - 10/12/2018 2:59 PM EDT Medication Prior Authorization for Primary [place] [address] Request received via: Whatever Patient: Elida Montez Patient : 1950 Subscriber Insurance: [employer] Phone #: Sent via: Whatever Reeves/Fax#: [id number] Physician: Allison Granados APRN Medication Requested: FLUoxetine (PROZAC) 20 mg Tablet Frequency/Sig: Take 1 tablet by mouth daily. Disp.: 90 Refills: 3 Currently taking: yes If yes, how lon Diagnosis for this medication: Adjustment disorder with mixed anxiety and depressed mood F43.23 Prior medications trialed in this patient: Medication: amitriptyline 10 mg Approx Dates: 2014 Outcome/Adverse Reactions: inadequate response Additional Information: documented in this encounter Plan of Treatment Not on filedocumented as of this encounter Visit Diagnoses Not on filedocumented in this encounter Care Teams Tire Trimmer Hand Relationship Specialty Start Date End Date Allison Granados APRN PCP - General 04/22/14 06/27/[address] [facility] [address] [place] [address] documented as of this encounter
--- OUTSIDE RECORDS SUMMARY | 2021-12-28 04:08 | XMS_ITS | Encounter Summary ---
:1950 Author Organization [facility] [place] [address] Care Team Providers Name Role Phone Allison Granados APRN Primary Care Provider [phone] Reason for Visit Reason Onset Date Comments Other 12/24/2018 Encounter Details Date Type Department Care Team Description 12/24/2018 Telephone Internal Medicine at [facility] CarmenJulienne Other [address] [place] [id number] Social History Tobacco Use Types Packs/Day [...] this encounter Miscellaneous Notes Telephone Encounter - CarmenEthel genaonory Henry - 12/24/2018 4:02 PM EDT Message: Pt called stating she had sent a myD-H message earlier about possibly having a UTI. Pt stated she has scheduled an appt for tomorrow at 1:45. Please call pt with any questions. Ask caller their first and last name and relationship to the patient: Pt Best time to call back: any Ok to leave a message: yes Ok to send my- message: no Offered Appointment: MA/Nurse contacted via: Message: y Call: n Pager: n documented in this encounter Plan of Treatment Not on filedocumented as of this encounter Visit Diagnoses Not on filedocumented in this encounter Care Teams Granular Operator Relationship Specialty Start Date End Date Allison Granados APRN PCP - General 04/22/14 06/27/21 [facility] [place] [address] documented as of this encounter
--- OUTSIDE RECORDS SUMMARY | 2021-12-28 04:08 | XMS_ITS | Encounter Summary ---
:1950 Author Organization [facility] [place] [address] Care Team Providers Name Role Phone Allison Granados APRN Primary Care Provider [phone] Reason for Referral Diagnostic Test (Routine) - Closed Specialty Diagnoses / Procedures Referred By Contact Refer red To Contact Radiology Diagnoses New daily persistent headache Darien Woodruff DO [facility] Rad Ct Scan Procedures CT Head wo Contrast (Generic) [facility] [place] [address] [place] [address] Referral ID Status Reason Start Date Expiration Date Visits V isits Requested Authorized [id number] Closed Specialty 06/17/2018 06/17/2019 1 1 Service Requested Reason for Visit Reason Comments Hip Pain Hip, head, and neck pain. Encounter Details Date Type Department Care Team Description 06/17/2018 Office Visit Internal Medicine at Darien Woodruff Trochanteric bursitis of right hip; Renny Franks, New daily persistent headache [address] [place] [address] GENERAL INTERNAL [phone] [place] [address] (Wo rk) Social History Tobacco Use Types [...] Sign Reading Time Taken Comments Blood Pressure 116/61 06/17/2018 2:18 PM EST Pulse 68 06/17/2018 2:18 PM EST Temperature 36.9 ??C (98.4 ??F) 06/17/2018 2:18 PM EST Respiratory Rate 16 06/17/2018 2:18 PM EST Oxygen Saturation 99% 06/17/2018 2:18 PM EST Inhaled Oxygen Concentration - - Weight 53.5 kg (118 lb) 06/17/2018 2:18 PM EST Height - - Body Mass Index 22.6 05/18/2018 8:18 AM EST documented in this encounter Patient Instructions Patient InstructionsDarien Woodruff DO - 06/17/2018 2:30 PM EST Images from the original note were not included. Patient Education Trochanteric Bursitis: Exercises Your Care Instructions Here are some examples of typical rehabilitation exercises for your condition. Start each exercise slowly. Ease off the exercise if you start to have pain. Your doctor or physical therapist will tell you when you can start these exercises and which ones will work best for you. How to do the exercises Hamstring wall stretch 1. Lie on your back in a doorway, with your good leg through the open door. 2. Slide your affected leg up the wall to straighten your knee. You should feel a gentle stretch down the back of your leg. 1. Do not arch your back. 2. Do not bend either knee. 3. Keep one heel touching the floor and the other heel touching the wall. Do not point your toes. 3. Hold the stretch for at least [...] can. 10. Repeat 2 to 4 times. Straight-leg raises to the outside 1. Lie [...] 4. Repeat 2 to 4 times. Double [id number] 1. Lie on your back with your [...] more? Visit our health information library at [email or web address]. You can also view health information on [employer], your personal patient account. Log in or sign up today. Enter N503 in the search box to learn more about Trochanteric Bursitis: Exercises. Current as of: June 04, 2017 Content Version: 11.7 ?? [id number] [employer]. Care instructions adapted under license by [employer] [facility]. If you have questions about a medical condition or this instruction, always ask your healthcare professional. [employer] disclaims any warranty or liability for your use of this information. Patient Education Iliotibial Band Syndrome: Exercises Your Care Instructions Here are some examples of typical rehabilitation exercises for your condition. Start each exercise slowly. Ease off the exercise if you start to have pain. Your doctor or physical therapist will tell you when you can start these exercises and which ones will work best for you. How to do the exercises Iliotibial band stretch 11. Lean sideways against a wall. If you are not steady on your feet, hold on to a chair or counter. 12. Stand on the leg with the affected hip, with that leg close to the wall. Then cross your other leg in front of it. 13. Let your affected hip drop out to the side of your body and against the wall. Then lean away from your affected hip until you feel a stretch. 14. Hold the stretch for 15 to 30 seconds. 15. Repeat 2 to 4 times. Piriformis stretch 6. Lie on your back with your legs straight. 7. Lift your affected leg and bend your knee. With your opposite hand, reach across your body, and then gently pull your knee toward your opposite shoulder. 8. Hold the stretch for 15 to 30 seconds. 9. Repeat 2 to 4 times. Hamstring wall stretch 6. Lie on your back in a doorway, with your good leg through the open door. 7. Slide your affected leg up the wall to straighten your knee. You should feel a gentle stretch down the back of your leg. 1. Do not arch your back. 2. Do not bend either knee. 3. Keep one heel touching the floor and the other heel touching the wall. Do not point your toes. 8. Hold the stretch for at least 1 minute to begin. Then try to lengthen the time you hold the stretch to as long as 6 minutes. 9. Repeat 2 to 4 times. 10. If you do not have a place to do this exercise in a doorway, there is another way to do it: 11. Lie on your back, and bend the knee of your affected leg. 12. Loop a towel under the ball and toes of that foot, and hold the ends of the towel in your hands. 13. Straighten your knee, and slowly pull back on the towel. You should feel a gentle stretch down the back of your leg. 14. Hold the stretch for 15 to 30 seconds. Or even better, hold the stretch for 1 minute if you can. 15. Repeat 2 to 4 times. Follow-up care [...] more? Visit our health information library at [email or web address]. You can also view health information on [employer], your personal patient account. Log in or sign up today. Enter P252 in the search box to learn more about Iliotibial Band Syndrome: Exercises. Current as of: June 04, 2017 Content Version: 11.7 ?? [id number] [employer]. Care instructions adapted under license by [facility]. If you have questions about a medical condition or this instruction, always ask your healthcare professional. [employer] disclaims any warranty or liability for your use of this information. documented in this encounter Progress Notes Dairen Woodruff DO - 06/17/2018 2:30 PM EST ESTABLISHED PATIENT VISIT I. HISTORY a. Reason(s) for Visit: Elida Montez 67 y.o. female who presents today due to complaint(s) of: Chief Complaint Patient presents with ??? Hip Pain Hip, head, and neck pain. b. History of Present Illness: Elida Montez is a 67 yr old female with a PMHx significant for chronic lumbar and neck pain, osteoporosis, RLS, IBS who presents for acute visit complaining of hip pain and head pain. Hip pain: - chronic issue that has acutely worsened - point tenderness on the lateral aspect of the leg near the hip joint that radiates down to about midway on the lateral aspect - she reports that it has been keeping her up at night - she takes about 400 mg of aleve everyday - reports that he has had a shot in the hip before with good relief Head pain: - occipital head pain, not a headache - has been going on for months, but worsened recently, and now she experiences it almost everyday - hard to describe the pain, but she has intermittent bursts of pretty severe pain - did have a fall about 8-10months ago and had a bump in that same region that resolved - only thing that seems to help the pain is when she pushes on it with her hand, but she denies any tenderness in the area c. Review of Systems: Constitutional - no fevers, chills, night sweats, change in appetite, weight loss or gain, fatigue HEENT - No headaches, no difficulty swallowing, changes in hearing/vision, no nasal congestion/postnasal drip Respiratory - no SOB, orthopnea, PND, wheeze, cough Cardiovascular - no CP, palpitations, edema Gastrointestinal - No abdominal pain, nausea, vomiting, GERD, constipation, diarrhea, blood in stool - no new difficulty urinating, incontinence, dysuria, frequency or urgency Musculoskeletal - no new weakness, arthralgias, myalgias or gait disturbance Skin - no new rashes d. PMH Patient Active Problem List Diagnosis ??? Asthma ??? Renal mass ??? Restless leg syndrome - doing well on requip. Iron stores were low, will replace ??? Low ferritin level ??? Age-related osteoporosis without current pathological fracture ??? Health care maintenance Pap- last done 08/03/10 Colonoscopy- done 12/29/08 Mammogram- 11/12/12 Tdap- 09/16/08 Pneumovax- 08/12/2006, 09/15/13 Prevnar- 10/05/14 ??? Pain in limb (LEG) Bilateral radiates UP from soles to back ??? Neck pain ??? Radiculopathy of lumbar region ??? Gastroesophageal reflux ??? Elevated TSH - possible Hashimotto's, recommended at least yearly TSH checks. ??? IBS (irritable bowel syndrome) ??? Urinary frequency Soc: Social History Tobacco Use ??? Smoking status: Never Smoker ??? Smokeless tobacco: Never Used Substance Use Topics ??? Alcohol use: Yes Comment: 1 glass of wine/month II. PHYSICAL EXAM: BP 116/61 (BP Location (NBP): Left arm, Patient Position: Sitting, BP Cuff Sizes: Adult (25-34 cm)) Pulse 68 Temp 36.9 ??C (98.4 ??F) (Oral) Resp 16 Wt 53.5 kg (118 lb) SpO2 99% BMI 22.60 kg/m?? General - No acute distress, conversing without difficulty. HEENT - NCAT, oropharynx nonerythematous and without lesions. No tenderness to palpation of the occipital region, or cervical spine Eyes - PERRLA, EOMI. No scleral icterus Neck - No lymphadenopathy, supple, no masses Lungs - Clear to auscultation B/L, no wheezing, crackles or rhonci. Heart - RRR, normal S1/S2, no murmur, gallop or rub. Abdomen/GI - Soft, nontender, normal active bowel sounds, neg hsm or masses. Extremities - No clubbing, cyanosis or edema. Pulses intact. Neuro- AAOx3, CN2-12 grossly intact b/l, muscle strength in biceps, triceps, deltoids, hands, hips, quads intact b/l, 2/4 patellar DTRs b/l III. ASSESSMENT/PLAN:Elida Montez 67 y.o. female presenting with hip and head pain. Hip pain is concerning for right trochanteric bursitis with point tenderness to palpation in the region. Now s/p injection to the point of maximum tenderness, with patient reporting some relief in her symptoms afterthe procedure. Patient also likely has a component of right IT band tendinitis as a cause of some ofher pain. Also encouraged and gave the some exercises and stretches to perform targeting these issues. The patients other primary concern of occipital headaches does raise some red flags. She has never had headaches in the past and now presents with worsening, persistent daily headaches s/p a traumatic fall with hitting her head months ago. She also reports that the pain is so bad that it sometimes wakes her a night. These symptoms are alarming enough to warrant imaging to rule out intracranial processes, such as a chronic subdural hematoma. With order a CT head w/o contrast today. 1. Trochanteric bursitis of right hip - s/p methylPREDNISolone acetate (DEPO-Medrol) injection 40 mg; Inject 1 mL into the articular spaceonce. - encouraged exercises and conservative therapies 2. New daily persistent headache - CT Head wo Contrast (Generic); Future Meds reconciled Darien Woodruff DO 06/17/18 6:49 PM Lorri Moran MD - 06/17/2018 2:30 PM EST I have seen the patient and reviewed the resident's above history and I agree with the details as written. The assessment and plan were formulated in discussion with me and I agree with them as documented. Pertinent History: Pt is a 67 yo female with h/o restless leg, neck pain and osteoporosis. Here today with 1. R Hip pain - radiates down the lateral leg. Keeps her up at night. Using 400 mg of aleve. Has gotten shot in the past that has helped in the past. 2. Head pain - x many months, acutely worse. Now occurring almost everyday. back of head, radiates up back of head. Pressure seems to help. No new neurologic symptoms. No change in visions or hearing. Fell in her bathroom, hitting back of head. This was about 8 months ago but she doesn't know if that is when Pertinent Exam: 116/61 Normal neuro exam per Dr. Woodruff. Discreet tenderness over the greater trochanter and extending down lateral leg PROCEDURE NOTE: The patient was informed of the benefits from injection as well as the risks which include, but are not limited to, increased pain, infection, bleeding, increase in blood sugars, and steroid flare. After verbal consent, a time-out was conducted just before the start of the procedure to verify the correct patient and procedure, procedure location, and all relevant critical information. The R greater trochanter was cleansed using povidone-iodine swabs x 3. Using a 21-gauge needle the lateral R hip wasentered and 40mg of depomedrol and 2 ml of lidocaine was injected without complication. Pt had improvement of the pain and tolerated the procedure well. Post injection instructions were discussed. Major issues addressed: Head pain - unusual, do worry about chronic sub dural so will proceed with CT scan of head. Trochanteric bursitis - s/p injection. Given instructions for exercise program. documented in this encounter Plan of Treatment Not on filedocumented as of this encounter Results CT Head wo Contrast [...] documented in this encounter Visit Diagnoses Diagnosis Trochanteric bursitis of right hip Enthesopathy of hip region New daily persistent headache New daily persistent headache documented in this encounter Administered Medications Inactive Administered Medications - up to 3 most recent administrations Medication Order MAR Action Action Date Dose Rate Site methylPREDNISolone acetate Given 06/17/2018 4:24 PM EST 40 mg (DEPO-Medrol) injection 40 mg 40 mg, Intra-articular, ONCE, 1 dose, On Fri06/17/18 at 1645, Routine documented in this encounter Care Teams Foot And Ankle Surgeon Relationship Specialty Start Date End Date Allison Granados APRN PCP - General 04/22/14 06/27/[address] [facility] [place] [address] documented as of this encounter
--- OUTSIDE RECORDS SUMMARY | 2021-12-28 04:08 | XMS_ITS | Encounter Summary ---
:1950 Author Organization [facility] Address [address] [place] [address] Care Team Providers Name Role Phone Allison Granados APRN Primary Care Provider [phone] Reason for Visit Reason Comments Asthma followup Encounter Details Date Type Department Care Team Description 10/09/2018 Office Visit Internal Medicine at Allison Granados ld intermittent asthma, unspecified whether complicated; Renny Rain APRN Tremor [address] [address] GENERAL INTERNAL [phone] [place], [place] [address] Social History Tobacco Use Types [...] Sign Reading Time Taken Comments Blood Pressure 114/66 10/09/2018 7:50 AM EDT Pulse 62 10/09/2018 7:50 AM EDT Temperature - - Respiratory Rate - - Oxygen Saturation 99% 10/09/2018 7:50 AM EDT Inhaled Oxygen Concentration - - Weight 54.2 kg (119 lb 6.4 oz) 10/09/2018 7:50 AM EDT Height 152.4 cm (5') 10/09/2018 7:50 AM EDT reported Body Mass Index 23.32 10/09/2018 7:50 AM EDT documented in this encounter Progress Notes Allison Granados APRN - 10/09/2018 8:00 AM EDT PCP: Allison Granados APRN Chief Complaint Patient presents with ??? Asthma followup SUBJECTIVE: Elida Montez is a 68 y.o. female who presents for follow up on asthma. She reports that the breathing is better and she is not needing the rescue inhaler anymore. She has a little more energy as well. Tremor- her has noticed it when she is on the computer. She notices it in both hands and it lasts for short period of time and then resolves on own. Review of Systems Constitutional: Negative for activity change, fatigue and fever. Respiratory: Negative for cough, chest tightness and shortness of breath. Cardiovascular: Negative for chest pain, palpitations and leg swelling. Neurological: Positive for headaches. Negative for dizziness and light-headedness. Allergies Allergen Reactions ??? Codeine Nausea And Vomiting ??? Unable To Find [Unclassified Drug] Seasonal Current Outpatient Medications Medication Sig Dispense Refill ??? ranitidine (ZANTAC) 150 mg Capsule Take [...] tablet daily (Patient not taking: Reported on 10/09/2018) 6 tablet 0 ??? metoclopramide (REGLAN) 5 mg Tablet Take 1 tablet by mouth 4 times daily. Take with meals and atbedtime. (Patient not taking: Reported on 10/09/2018) 50 tablet 1 ??? benzonatate (TESSALON) 100 mg Capsule Take 1 capsule by mouth 3 times daily as needed for Cough.(Patient not taking: Reported on 10/09/2018) 30 tablet 0 No current facility-administered medications [...] R79.89 ??? Gastroesophageal reflux K21.9 OBJECTIVE: Vitals: 10/09/18 0750 BP: 114/66 BP Location (NBP): Left arm Patient Position: Sitting BP Cuff Sizes: Adult (25-34 cm) Pulse: 62 SpO2: 99% Weight: 54.2 kg (119 lb 6.4 oz) Height: 152.4 cm (5') PF: 250 L/min PHYSICAL EXAM: Physical Exam Constitutional: She [...] and oriented to person, place, and time. She has normal strength. No cranial nerve deficit or sensory deficit. Coordination and gait normal. No cog wheeling noted. Skin: Skin is warm and dry. Psychiatric: She has a normal mood and affect. Her behavior is normal. Judgment and thought content normal. Vitals reviewed. ASSESSMENT & PLAN: Elida was seen today for asthma. Diagnoses and all orders for this visit: Mild intermittent asthma, unspecified whether complicated - doing much better, will have her continue with the advair and albuterol prn Tremor - unable to reproduce in office no other symptoms. She will monitor for the next month and document when it occurs. Will discuss at her f/u in november. Other orders - Td vaccine preservative free greater than or equal to 7yo IM documented in this encounter Plan of Treatment Not on filedocumented as of this encounter Visit Diagnoses Diagnosis Mild intermittent asthma, unspecified wh ether complicated Tremor Abnormal involuntary movements documented in this encounter Care Teams Learning Consultant Relationship Specialty Start Date End Date Allison Granados, SOILA PCP - General 04/22/14 06/27/[address] [facility] [address] [place] [address] documented as of this encounter
--- OUTSIDE RECORDS SUMMARY | 2021-12-28 04:08 | XMS_ITS | Encounter Summary ---
:1950 Author Organization [facility] [place] [address] Care Team Providers Name Role Phone Allison Granados APRN Primary Care Provider [phone] Encounter Details Date Type Department Care Team Description 07/31/2018 Hospital Encounter Gastroenterology at [facility] Isaiah Cee, [facility] [place] [address] [facility] [phone] [facility] [place] [place] [address] Social History Tobacco Use Types [...] Sign Reading Time Taken Comments Blood Pressure 101/61 07/31/2018 10:30 AM EST Pulse 78 07/31/2018 10:00 AM EST Temperature 38.9 ??C (102.1 ??F) 07/31/2018 10:20 AM EST Respiratory Rate 16 07/31/2018 10:10 AM EST Oxygen Saturation 94% 07/31/2018 10:30 AM EST Inhaled Oxygen Concentration - - Weight 53.1 kg (117 lb) 07/31/2018 8:45 AM EST Height 153.7 cm (5' 0.5) 07/31/2018 8:45 AM EST Body Mass Index 22.47 07/31/2018 8:45 AM EST documented in this encounter Discharge Instructions Discharge InstructionsLucy Bojorquez RN - 07/31/2018 10:13 AM EST Colonoscopy What to expect after the procedure You may feel a little more gassy or bloated than usual. This is normal. You should expect the return of normal bowel function in the 2 to 3 days. Activity Because of the sedation that you received your judgement and reaction time are effected ?? Go home and rest quietly for the remainder of the day. You may resume your normal activities tomorrow. ?? Change from one position to the next slowly. You may lose your balance unexpectedly ?? Be careful on stairs, as you may be unsteady on your feet FOR THE NEXT 24 HRS ?? DO NOT DRIVE OR OPERATE ANY MACHINERY ?? DO NOT DRINK ALCOHOLIC BEVERAGES ?? DO NOT SIGN LEGAL DOCUMENTS ?? If you are a smoker: DO NOT SMOKE WHILE YOU ARE ALONE Diet ?? Start by eating small portions of foods that ordinarily will not upset your stomach . Avoid gas producing foods for the next few days ?? Be gentle with what you choose to start with ?? Drink plenty of fluids ( unless your doctor has told you not to). IV SITE-- slight redness, or tenderness is normal. You can use warm compresses if you become concerned. If the tenderness +/or redness increases or foul drainage and a red streak occurs, please contact your PCP immediately When shoud you call for help? Call 911 anytime you think you may need emergency care. For example If you pass out ( loss of consciousness) If you pass maroon or bloody stools If you have severe belly pain Call your doctor now or seek immediate medical care If your stools are black and tarlike If your stools have streaks of blood, but you did not have a biopsy or any polyps removed If you have belly pain, or your belly is swollen and firm If you vomit If you have a fever If you are very dizzy Watch closely for changes in your health, and be sure to contact your doctor if you have any problems Your doctor will let you know when you will need your next colonoscopy. The results of your test andyour risk for colorectal cancer will help your doctor decide how often you need to be checked. Friday-Friday Same Day Endo [phone] 7a-8p Otherwise contact [phone] and ask to speak to the lead game designer director of convention services Follow up care is a camacho part of your treatment and safety. Be sure to make and go to all appointments, and call your doctor if you are having problems. Discharge instructions reviewed with patient who expresses understanding documented in this encounter Medications at Time of Discharge Medication Sig Dispensed Refills Start Date End Date hyoscyamine (LEVSIN) Take 1 tablet by 30 tablet 5 8 0.125 mg mouth every 6 hours TabletIndications: LLQ as needed for abdominal pain Cramping. oxybutynin (DITROPAN-XL) Take 1 tablet by 90 [...] counter, 0 Simethicone 125mg. antigas softgels PRN ferrous sulfate 325 mg Take 1 tablet by 90 tablet 3 017 01/05/2019 (65 mg iron) Tablet, mouth daily. Delayed Release (E.C.) ranitidine (ZANTAC) 150 Take 1 capsule by 180 capsule 3 06/0609/02/2018 mg Capsule mouth 2 times daily. Take before dinner every night. triamcinolone (KENALOG) Apply scant amount 15 g 0 11/201612/25/2018 0.1 % Ointment topically to affected area daily until symptoms resolve. Then decrease to every other day, then 1-2 times/ week. clobetasol (TEMOVATE) Apply scant amount 15 g 0 201612/20/2019 0.05 % Ointment topically to vulva daily as instructed until next appointment in 6-8 weeks. documented as of this encounter H&P Notes Isaiah Cee MD - 07/31/2018 9:32 AM EST Gastroenterology and Hepatology Pre-Procedure History and Physical Exam Procedure: Colonoscopy: Indication: screen Patient Active Problem List Diagnosis Code ??? [...] Procedure Name Priority Date/Time Associated Comments Diagnosis COLONOSCOPY, 07/31/2018 9:17 AM crc screening DIAGNOSTIC EST COLONOSCOPY Routine 07/31/2018 9:13 AM Results f or this EST procedure are i n the results section. documented in this encounter Results COLONOSCOPY (07/31/2018 9:13 AM EST) [facility] Method Time Signature COLONOSCOPY [facility] PROVATION Endoscopy Procedure Date: 07/31/2018 9:13 AM ? Patient Name: Elida Montez ? Date of : 1950 ? Age: 67 ? Order #: [id number] ? Instrument Name: [id number] ? Procedure: ? Colonoscopy Indications: ? Screening for colorectal malignant ? neoplasm Providers: ? Isaiah Cee MD, Mary Grace Sotelo, ? Sharon Justin, ? Alliance Director Referring MD: ?Allison Granados Medicines: ? Midazolam 4 mg IV, Fentanyl 200 ? micrograms IV Complications: ? No immediate complications. Procedure: ? The procedure, indications, benefi ts, ? risks and alternatives were e xplained ? to the patient. Specifically ? discussed were potential ? complications including, but not ? limited to, bleeding, perfora tion, ? infection, missing a cancer, and ? adverse medication reactions. The ? patient was placed in the lef t ? lateral decubitus position, a nd a ? digital rectal exam was perfo rmed. ? The Colonoscope was inserted in the ? anus and under direct visuali zation, ? advanced to the terminal ileu m. ? Careful inspection was made a s the ? colonoscope was withdrawn. Th e ? colonoscopy was performed wit riya ? difficulty. The patient roselyn ated the ? procedure well. The quality o f the ? bowel preparation was evaluat ed using ? the BBPS ([place] Bowel Prepar ation ? Scale) with scores of: Right Colon = ? 3, Transverse Colon = 3 and L eft ? Colon = 3 (entire mucosa seen well ? with no residual staining, sm all ? fragments of stool or opaque liquid). ? The total BBPS score equals 9 . Scope ? withdrawal time was 10 minute s. ? Findings: ? The perianal and digital rectal examinations were ? normal. ? A few small-mouthed diverticula were found in the ? sigmoid colon. ? The terminal ileum appeared normal. ? Internal hemorrhoids were found during retroflexion. ? The hemorrhoids were small. ? Moderate Sedation: ? I was present during the intraservice time as ? documented by the sedation RN. Impression: ?- Diverticulosis in the sigmoid co chela. ? - The examined portion of the ileum ? was normal. ? - Internal hemorrhoids. ? - No specimens collected. Recommendation: ?- Repeat colonoscopy in 10 years for ? surveillance. ? Attending Participation: ? I personally performed the entire procedure. ? Isaiah Cee MD 07/31/2018 10:11:49 AM This report has been signed electronically. Number of Addenda: 0 Note Initiated On: 07/31/2018 9:13 AM Specimen (Source) Anatomical Collection Method Collection Time Re ceived Time Location / / Volume Laterality 07/31/2018 9:13 AM EST Allison Granados BOTANY PROFESSOR GENERAL SURGICAL ORDERABLES Performing Organization Address City/State/ZIP Code Phon e Number PROVATION documented in this encounter Visit Diagnoses Not on filedocumented in this encounter Administered Medications Inactive Administered Medications - up to 3 most recent administrations Medication Order MAR Action Action Date Dose Rate Site lactated Ringers infusion New Bag 07/31/2018 9:08 AM EST 100 mL/hr 100 mL/hr 100 mL/hr, Intravenous, CONTINUOUS, Starting on Fri07/31/18 at 0900, Until Fri07/31/18 at 1051, Endoscopy (Day of Procedure) documented in this encounter Active and Recently Administered Medications Times are shown in EST. Continuous Medication Order 07/29/2018 07/30/2018 07/31/2018 lactated Ringers infusion (CANCELED) 0908 (New Bag - Provider: Sanjuanita Thrasher RN) 100 mL/hr, at 100 mL/hr, Intravenous, CO NTINUOUS, Starting Fri07/31/18 at 0900, Until Fri07/31/18 at 1051, Endo (Day of Procedure) PRN Medication Order 07/29/2018 07/30/2018 07/31/2018 fentaNYL 50 mcg/mL multi-dose injection (CANCELED) 0935 (Given - Provider: Mary Grace Sotelo RN)0938 (Given - Provider: Mary Grace Sotelo RN)0945 (Given - Provider: Mary Grace Sotelo RN)0949 (Given - Provider: Mary Grace Sotelo RN)0952 (Given - Provider: Mary rGace Sotelo RN) ONCE PRN, Starting Fri07/31/18 at 0935, Until Fri07/31/18 at 1259, Intra- Operative (Intra-Procedure), Routine midazolam (PF) (VERSED) multi-dose injection (CANCELED) 0935 (Given - Provider: Mary Grace Sotelo RN)0938 (Given - Provider: Mary Grace Sotelo RN)0945 (Given - Provider: Mary Grace Sotelo RN)0948 (Given - Provider: Mary Grace Sotelo RN)0953 (Given - Provider: Mary Grace Sotelo RN) ONCE PRN, Starting Fri07/31/18 at 0935, Until Fri07/31/18 at 1259, Intra- Operative (Intra-Procedure), Routine documented in this encounter Care Teams Tricot Knitting Machine Operator Relationship Specialty Start Date End Date Allison Granados APRN PCP - General 04/22/14 06/27/[address] [facility] [address] [place] [address] documented as of this encounter
--- OUTSIDE RECORDS SUMMARY | 2021-12-28 04:08 | XMS_ITS | Encounter Summary ---
:1950 Author Organization [facility] [place] [address] Care Team Providers Name Role Phone Allison Granados APRN Primary Care Provider [phone] Reason for Visit Reason Onset Date Comments Medication Refill 01/05/2019 Encounter Details Date Type Department Care Team Description 01/05/2019 Refill Internal Medicine at [place] Allison Murphy [facility] DR Gutierrez [facility] [place] [address] RD [phone] [place], [place] [address] (Wo rk) Social History Tobacco [...] on filedocumented in this encounter Care Teams Master Coastal Waters Relationship Specialty Start Date End Date Allison Granados, SOILA PCP - General 04/22/14 06/27/21 [facility] [address] [place] [address] documented as of this encounter
--- OUTSIDE RECORDS SUMMARY | 2021-12-28 04:08 | XMS_ITS | Encounter Summary ---
:1950 Author Organization [facility] [place] [address] Care Team Providers Name Role Phone Allison Granados APRN Primary Care Provider [phone] Reason for Visit Reason Onset Date Comments Prior Authorization 05/28/2019 Oxybutynin Encounter Details Date Type Department Care Team Description 05/28/2019 Telephone Internal Medicine at Doris Villarreal Pr ior Authorization [facility] (Oxybutynin) [address] [place], [place] [id number] Social History Tobacco Use Types Packs/Day Years [...] Telephone Encounter - Doris Villarreal CMA - 05/28/2019 8:30 AM EST Medication Prior Authorization for Primary [place] [address] Approved: Oxybutynin Start Date: 05/28/19 End Date: 05/27/2020 Case/Reference #: [id number] See Approval Letter in scanned documents. Telephone Encounter - Doris Villarreal CMA - 05/28/2019 7:39 AM EST Medication Prior Authorization for Primary [place] [address] Request received via: CM Patient: Elida Montez Patient : 1950 Insurance Company: [email or web address] Sent via: [facility] Reeves: [id number] Physician: Allison Granados APRN Medication Requested: oxybutynin (DITROPAN-XL) 5 mg Tablet Extended Rel 24 hr Frequency/Sig: Take 2 tablets by mouth daily. Disp: 180 Refills: 3 Currently taking: yes If yes, how lon Diagnosis for this medication: Urinary frequency R35.0 documented in this encounter Plan of Treatment Not on filedocumented as of this encounter Visit Diagnoses Not on filedocumented in this encounter Care Teams Wafer Cutter Relationship Specialty Start Date End Date Allison Granados APRN PCP - General 04/22/14 06/27/21 [facility] [address] ROD INTERNAL [place] [address] documented as of this encounter
--- OUTSIDE RECORDS SUMMARY | 2021-12-28 04:08 | XMS_ITS | Encounter Summary ---
:1950 Author Organization [facility] [place] [address] Care Team Providers Name Role Phone Allison Granados APRN Primary Care Provider [phone] Encounter Details Date Type Department Care Team Description 02/24/2019 Telephone Gastroenterology at [facility] [place] [address] Social History Tobacco Use Types Packs/Day [...] this encounter Miscellaneous Notes Telephone Encounter - Jo Ann Cordova - 02/24/2019 10:35 AM EDT Julissa Montez [id number] Diagnosis: dyspepsia / acid reflux 1. Have you ever had an EGD before? [] YES [] NO If Yes, Date of Last EGD: 12/25/2015 If yes, did you have any problems with the procedure? [] YES [x] NO Explain: What type of sedation was used: IV sedation 2. Do you take any Blood Thinners? [] YES [x] NO If Yes, type: 3. Do you have a Pacemaker or Defibrillator device? [] YES [x] NO If Yes send [employer] message to [employer] DEVICE CHECK 4. Are you a diabetic? [] YES [x] NO If yes, controlled by meds or diet? 5. Do you have any Allergies to Eggs, Latex or Medications? [] YES [x] NO If Yes, what: 6. Do you take any Oral Iron Supplements (Including multi vitamins)? [x] YES [] NO 7. Do you have a history of three or more abdominal surgeries? [] YES [x] NO 8. Have you had a problem with sedation or anesthesia? [] YES [x] NO 9. Do you have a c-pap machine or oxygen tank? [] C-PAP [] Oxygen [x] NO 10. Do you take prescription narcotic pain medications? [] YES [x] NO 11. You must have a responsible democrat stay at the facility during your procedure and drive you home? [x] YES 12. Is there any other information you would like to give us to aid in scheduling? See case Height: Weight: BMI: ____ Age:68 y.o. documented in this encounter Plan of Treatment Not on filedocumented as of this encounter Visit Diagnoses Not on filedocumented in this encounter Care Teams Bioinformatics Analyst Relationship Specialty Start Date End Date Allison Granados APRN PCP - General 04/22/14 06/27/21 [facility] [place] [address] documented as of this encounter
--- OUTSIDE RECORDS SUMMARY | 2021-12-28 04:08 | XMS_ITS | Encounter Summary ---
:1950 Author Organization [facility] Address [address] [address] Care Team Providers Name Role Phone Allison Granados APRN Primary Care Provider [phone] Reason for Visit Reason Comments Cough Several months/ chest feels tight some pain Encounter Details Date Type Department Care Team Description 09/25/2018 Office Visit Internal Medicine at Allison Granados derate persistent [facility] WSOILA asthma with acute [address] [facility] [address] [place] [address] GENERAL INTERNAL [phone] [place], [place] [address] Social History Tobacco Use Types [...] Sign Reading Time Taken Comments Blood Pressure 123/66 09/25/2018 1:15 PM EDT Pulse 83 09/25/2018 1:15 PM EDT Temperature 36.7 ??C (98.1 ??F) 09/25/2018 1:15 PM EDT Respiratory Rate - - Oxygen Saturation 97% 09/25/2018 1:15 PM EDT Inhaled Oxygen Concentration - - Weight 51.7 kg (114 lb) 09/25/2018 1:15 PM EDT Height 152.4 cm (5') 09/25/2018 1:15 PM EDT Body Mass Index 22.26 09/25/2018 1:15 PM EDT documented in this encounter Progress Notes Allison Granados APRN - 09/25/2018 1:30 PM EDT PCP: Allison Granados APRN Chief Complaint Patient presents with ??? Cough Several months/ chest feels tight some pain SUBJECTIVE: Elida Montez is a 68 y.o. female who presents for chronic cough that has been ongoing for severalmonths and for chest tightness. Her reports that the cough is worse at night and that at times she starts to feel better andthen gets worse again. Today is the first day that she has been wheezing. She feels that most of hersymptoms are in her chest. Review of Systems Constitutional: Negative for chills and fatigue. HENT: Positive for congestion. Negative for ear pain, rhinorrhea, sinus pressure and sore throat. Respiratory: Positive for cough, chest tightness, shortness of breath and wheezing. Cardiovascular: Negative for chest pain and palpitations. Gastrointestinal: Positive for nausea. Negative for abdominal pain, diarrhea and vomiting. Skin: Negative for rash. Wt Readings from Last 3 Encounters: 09/25/18 51.7 kg (114 lb) 09/04/18 52.3 kg (115 lb 3.2 oz) 08/19/18 53.8 kg (118 lb 9.6 oz) Allergies Allergen Reactions ??? Codeine Nausea And Vomiting ??? Unable To Find [Unclassified Drug] Seasonal Current Outpatient Medications Medication Sig Dispense Refill ??? metoclopramide (REGLAN) 5 mg Tablet Take 1 tablet by mouth 4 times daily. Take with meals and atbedtime. 50 tablet 1 ??? ranitidine (ZANTAC) 150 mg Capsule Take 1 capsule by mouth 2 times daily. Take before dinner every night. 180 capsule 3 ??? benzonatate (TESSALON) 100 mg Capsule Take 1 capsule by mouth 3 times daily as needed for Cough.30 tablet 0 ??? oxybutynin (DITROPAN-XL) 5 mg Tablet Extended [...] R79.89 ??? Gastroesophageal reflux K21.9 OBJECTIVE: Vitals: 09/25/18 1315 BP: 123/66 Pulse: 83 Temp: 36.7 ??C (98.1 ??F) TempSrc: Oral SpO2: 97% Weight: 51.7 kg (114 lb) Height: 152.4 cm (5') PHYSICAL EXAM: Physical Exam Constitutional: She is oriented to person, place, and time. She appears well- developed and well-nourished. No distress. HENT: Head: Normocephalic and atraumatic. Eyes: Conjunctivae are normal. Cardiovascular: Normal rate, regular rhythm and normal heart sounds. No murmur heard. Pulmonary/Chest: Effort normal. She has wheezes. She has no rales. She exhibits no tenderness. Genitourinary: Rectal exam shows guaiac positive stool. Neurological: She is alert and oriented to person, place, and time. Skin: Skin is warm and dry. Psychiatric: She has a normal mood and affect. Her behavior is normal. Judgment and thought content normal. Vitals reviewed. ASSESSMENT & PLAN: Elida was seen today for cough. Diagnoses and all orders for this visit: Moderate persistent asthma with acute exacerbation - albuterol (PROVENTIL) nebulizer solution 2.5 mg - will give neb treatment in clinic today and treat with zpak and with prednisone - will have follow up in about 10-14 days for chronic cough. Consider PFTs and Chest CT if not improving. documented in this encounter Plan of Treatment Not on filedocumented as of this encounter Visit Diagnoses Diagnosis Moderate persistent asthma with acute ex acerbation documented in this encounter Administered Medications Inactive Administered Medications - up to 3 most recent administrations Medication Order MAR Action Action Date Dose Rate Site albuterol (PROVENTIL) nebulizer Given 09/25/2018 1:36 PM EDT 2.5 mg solution 2.5 mg 2.5 mg, Nebulization, ONCE, 1 dose, On Fri09/25/18 at 1400, Routine documented in this encounter Care Teams Production Broacher Relationship Specialty Start Date End Date Allison Granados, RESOURCE CONSERVATION MANAGER PCP - General 04/22/14 06/27/[address] [facility] [place] [address] documented as of this encounter
--- OUTSIDE RECORDS SUMMARY | 2021-12-28 04:08 | XMS_ITS | Encounter Summary ---
:1950 Author Organization [facility] [place] [address] Care Team Providers Name Role Phone Roberta Allison Rain APRN Primary Care Provider [phone] Reason for Visit Reason Onset Date Comments Medication Refill 04/10/2019 Encounter Details Date Type Department Care Team Description 04/10/2019 Refill Gastroenterology at [facility], Gastroesophageal reflux [facility] Marilyn Henry [place], [place] [address] [facility] presence not specified [phone] [place] [address] Social History Tobacco Use Types Packs/Day Years [...] specified documented in this encounter Care Teams Technical Director Relationship Specialty Start Date End Date Allison Granados APRN PCP - General 04/22/14 06/27/21 [facility] [address] ROD INTERNAL [facility] [place] [address] documented as of this encounter
--- OUTSIDE RECORDS SUMMARY | 2021-12-28 04:08 | XMS_ITS | Encounter Summary ---
:1950 Author Organization [facility] [place] [address] Care Team Providers Name Role Phone Allison Granados APRN Primary Care Provider [phone] Encounter Details Date Type Department Care Team Description 04/15/2019 Office Visit Gastroenterology at [facility] [place], Gastroesophageal reflux dise ase, esophagitis presence not specified; One [facility] Marilyn Henry MD Nausea without vomiting; [place] [address] One [facility] Dysphagia, unspecified type [phone] [place] [address] Social History Tobacco Use Types Packs/Day Years [...] Sign Reading Time Taken Comments Blood Pressure 123/65 04/15/2019 10:40 AM EDT Pulse 64 04/15/2019 10:40 AM EDT Temperature - - Respiratory Rate - - Oxygen Saturation - - Inhaled Oxygen Concentration - - Weight 57.3 kg (126 lb 6.4 oz) 04/15/2019 10:40 AM EDT Height 152.4 cm (5') 04/15/2019 10:40 AM EDT Body Mass Index 24.69 04/15/2019 10:40 AM EDT documented in this encounter Patient Instructions Patient InstructionsDevi Rosa MD - 04/15/2019 10:30 AM EDT Thank you for coming in to see me today. I would like to help improve your feelings of acid reflux. Here is the plan we developed together: 1. Baclofen 5 mg twice daily with meals for presumed non-acid reflux. You should try this for at least 4 weeks and we can increase the dose to 10 mg twice daily if needed.??Potential side effects couldinclude somnolence, headache, dizziness, fatigue and ??weakness. ?? 2. Continue Nexium 40 mg twice daily, before breakfast and before dinner. 3. Increase ranitidine 300 mg to twice daily, after breakfast and before bed. 4. We can consider doing further testing: ph/impedance testing while on medications. 5. Return to see me in 4 month. documented in this encounter Progress Notes Devi Rosa MD - 04/15/2019 10:30 AM EDT Gastroenterology & Hepatology Follow-up Note Patient Active Problem List Diagnosis Code ??? [...] infection, esophageal B37.81 ??? Hiatal hernia K44.9 LAST VISIT: 09/04/2018 HISTORY OF PRESENT ILLNESS Elida Montez is a 68 y.o. female with??GERD, functional bowel disorder predominantly constipation, and h/o vomiting/regurgitation who presents for follow-up visit. At her visit 7 months ago, we discussed: Continue nexium 40 mg BID Continue zantac 300 mg QHS. Trial of metochlopramide 5 mg QAC, QHS x 1 month. Continue Miralax every morning. Continue Levsin as needed. If persistent vomiting or associated epigastric pain, consider EGD. RTC 6-9 months unless vomiting worsens. Interval history: She tried metochlopramide but this was limited by leg pains. Currently: She has going reflux with regurgitation of fluid up into throat that feels like pressure.No burning. Ivory seltzer and gingerale help. Sleeping poorly due to symptoms, got a new inclined pillow. Has daily breakthrough symptoms. Occasional dysphagia, no food impactions. Being treated for esophageal candidiasis. Gained a little weight. Occasional vomiting, about 1/x month. Taking Miralax, moves bowels easily once per day. Asthma under control. Medication trials: Nexium 40 mg BID??- no improvement in dysphagia, controls GERD Zantac??300 mg QHS - no??improvement??in dysphagia, controls GERD Miralax PRN - helped constipation Metamucil - results in once daily BM Reglan 5 mg QAC, QHS - caused leg pain ?? Testing: Colonoscopy in 2008 was normal. EGD 12/2015 - normal, z line 35 cm Stress echo 02/2016 normal Cardiac enzymes 08/2016 negative HREM showed 100% failed swallow 09/2017 - ineffective esophageal motility [place] pH study on meds 09/2017 - minimal acid exposure, no symptoms [place] pH study off meds 11/2017 - pathologic acid reflux, assoc between regurgitation and acid??reflux??events in supine position CT A/P 01/23/18 no sigmoid diverticulosis or diverticulitis Colonoscopy 07/2018 - diverticulosis, otherwise normal EGD 02/2019 - hiatal hernia, gastric polyp, monie, no EoE Abd US 04/2019 - normal liver, s/p felipe MEDICATIONS Current Outpatient Medications on File Prior to Visit Medication Sig Dispense Refill ??? albuterol (VENTOLIN HFA) 90 mcg/actuation HFA [...] 2 ??? fluticasone propionate (FLONASE) 50 mcg/actuation [place], Suspension 1 spray by Each Nare route [...] by mouth daily. 90 tablet 3 ??? esomeprazole (NEXIUM) 40 mg [...] 15 g 0 No current facility-administered medications on file prior to visit. Medical, surgical, family, and social histories reviewed. Medications and allergies reviewed. PHYSICAL EXAM: There were no vitals filed for this visit. Wt Readings from Last 3 Encounters: 03/25/19 57.4 kg (126 lb 9.6 oz) 03/02/19 53.5 kg (118 lb) 01/28/19 55.3 kg (122 lb) GEN: Thin, alert, cooperative. Pleasant. In NAD HEENT: No oropharyngeal lesions. Neck supple. No masses. Thyroid symmetric LUNGS: CTAB CARD: RRR without m/g/r ABD: Non-distended. Active BS. Soft. Benign. No masses. No HSM. EXT: No C/C/E NEURO: Grossly intact ASSESSMENT AND PLAN Elida Montez is a 68 y.o. with??GERD, functional bowel disorder predominantly constipation, and h/o vomiting/regurgitation who presents for follow-up of her symptoms. She has ongoing, daily, breakthrough sensation of regurgitation and pressure in her throat despite twice daily Nexium and H2 blockerat night. I do wonder about non-acic reflux contributing. Of note, she has had HREM with ineffectiveesophageal motility precluding surgery (miryam fundoplication). We discussed the following recommendations that were printed out for the patient: 1. Trial of baclofen 5 mg twice daily with meals for presumed non-acid reflux. You should try this for at least 4 weeks and we can increase the dose to 10 mg twice daily if needed.??Potential side effects could include somnolence, headache, dizziness, fatigue and ??weakness. ??Please let us know if this is something you would like to try. 2. Continue Nexium 40 mg BID (before breakfast and before dinner) 3. Increase ranitidine 300 mg to BID (after breakfast and at bedtime) 4. If not improvement, recommend Ph/impedance while on medications 5. Consider trial of Gaviscon and TCA for visceral hypersensitivity and functional heartburn. 6. Continue MIralax once daily. 7. Return 4 months. All of the patient's questions were answered. Devi Rosa MD high speed operator Section of Gastroenterology [place] [address] documented in this encounter Plan of Treatment Not on filedocumented as of this encounter Visit Diagnoses Diagnosis Gastroesophageal reflux disease, esophag itis presence not specified Nausea without vomiting Dysphagia, unspecified type documented in this encounter Care Teams Blunger Machine Operator Relationship Specialty Start Date End Date Allison Granados APRN PCP - General 04/22/14 06/27/[address] [facility] [place] [address] documented as of this encounter
--- OUTSIDE RECORDS SUMMARY | 2021-12-28 04:08 | XMS_ITS | Encounter Summary ---
:1950 Author Organization [facility] [place] [address] Care Team Providers Name Role Phone Allison Granados APRN Primary Care Provider [phone] Encounter Details Date Type Department Care Team Description 08/19/2018 Telephone Internal Medicine at [facility] Meche Schmitz RN [address] [place] [id number] Social History Tobacco Use Types Packs/Day [...] Telephone Encounter - Meche Schmitz RN - 08/19/2018 10:21 AM EST I called and spoke to Elida after reading her F?rsat Bu F?rsat message. She reports having started to feel better after antibiotics, but cough has returned. Now, she reports vomiting up phlegm and cough and wheezing persist. I explained that I recommend that she come in so her lungs can be evaluated. [place], but has agreed to this POC. documented in this encounter Plan of Treatment Not on filedocumented as of this encounter Visit Diagnoses Not on filedocumented in this encounter Care Teams Body Shop Manager Relationship Specialty Start Date End Date Allison Granados, EDUCATIONAL COORDINATOR PCP - General 04/22/14 06/27/[address] [facility] [place] [address] documented as of this encounter
--- OUTSIDE RECORDS SUMMARY | 2021-12-28 04:08 | XMS_ITS | Encounter Summary ---
:1950 Author Organization [facility] [place] [address] Care Team Providers Name Role Phone Allison Granados APRN Primary Care Provider [phone] Reason for Referral Consultation (Routine) - Closed Specialty Diagnoses / Procedures Referred By Contact Refer red To Contact Gastroenterology Diagnoses Globus sensation Allison Grandaos, [facility] 4t BINDERY MACHINE TENDER [place], [place] [phone] [place] [address] Referral ID Status Reason Start Date Expiration Date Visits V isits Requested Authorized [id number] Closed Test Only 01/28/2019 01/28/2020 1 1 Reason for Visit Reason Comments Other alot of phlegm and mucus in throat at night , feels like it is stuck in her throat Dizziness has had episodes of feeling very dizzy Wrist Pain right wrist Encounter Details Date Type Department Care Team Description 01/28/2019 Office Visit Internal Medicine at Allison Granados, Globus sensation [address] BINDERY MACHINE TENDER [address] [facility] [place] [address] [phone] [place] [address] (Wo rk) Social History Tobacco Use [...] Sign Reading Time Taken Comments Blood Pressure 124/73 01/28/2019 1:59 PM EDT Pulse 75 01/28/2019 1:59 PM EDT Temperature - - Respiratory Rate - - Oxygen Saturation - - Inhaled Oxygen Concentration - - Weight 55.3 kg (122 lb) 01/28/2019 1:47 PM EDT Height 152.4 cm (5') 01/28/2019 1:47 PM EDT reported Body Mass Index 23.83 01/28/2019 1:47 PM EDT documented in this encounter Progress Devorah Pham - 01/28/2019 2:00 PM EDT HPI: Elida Montez is a 68 y.o. female presenting with worsening sensation of stuff stuck in my throat. This has been true at baseline for some time but has acutely worsened over the past few days. The sensation is worse at night and has made lying flat difficult but has a similar feeling to lesser degree during th day. She sometimes has difficulty swallowing but says it is not impacting her ability to eat and has not had any weight loss. She does not avoid any foods and has not choked on any foods or had any regurgitation. When she does swallow (saliva or food) she gets a globus sensation, and feels like things get stuck. No chest pain, or burning. No sensation reflux. Continuing to take ranitidine and esomeprazole. She denies a stuffy nose or postnasal drip. No ear pain or fullness, no sinus pain or pressure, and no sore throat. Had endoscopy in 2016 that was normal. Had esophageal manometry in 2018 showing normal LES but abnormal motility in the body of the esophagus. 100% of swallows were failed meeting criteria for absent contractility, which is a major disorder for peristalsis. The differential includes connective tissue (including scleroderma) and systemic diseases (including diabetes, myxedema, and multiple sclerosis). Even with a normal IRP, achalasia still needs to be considered. Had a 24 hr pH impedence study which was pathologic for acid reflux. The SAP was significant for regurgitation indicating that this symptom is secondary to acid reflux events. Physical: BP 124/73 (BP Location (NBP): Right arm, Patient Position: Standing, BP Cuff Sizes: Adult (25-34 cm)) Pulse 75 Ht 152.4 cm (5') Comment: reported Wt 55.3 kg (122 lb) BMI 23.83 kg/m?? HEENT: Nares: pink without inflammation, or discharge. Throat: no erythema, no exudates. Neck: no palpable lymphadenopathy, tenderness to palpation along mid anterior cervical chains bilaterally. Cardiac: RRR, no murmurs rubs or gallops Resp: clear to auscultation bilaterally. No wheezing, crackles or rhonchi Assessment and Plan: Elida Montez is a 68 y.o. with history of known GERD and esophageal dysmotility presents with complaints of several days of worsening globus likely secondary to rhinitis and postnasal drip. Althoughendoscopy was normal in 2016, given her age and history of GERD and allergies would benefit from endoscopy to rule out stricture, eosinophilic esophagitis, or obstructive mass. -Encouraged use of saline nasal spray or Mary Kate pot -Flonase - Referral to GI for EGD *This visit was performed under the supervision of Allison Pink [facility] Medical Student Allison Granados APRN - 01/28/2019 2:00 PM EDT PCP: Allison Granados APRN Chief Complaint Patient presents with ??? Other alot of phlegm and mucus in throat at night , feels like it is stuck in her throat ??? Dizziness has had episodes of feeling very dizzy ??? Wrist Pain right wrist SUBJECTIVE: Elida Montez is a 68 y.o. female who presents for a lot of phlegm and mucous in her throat. She feels that there is a sensation of something stuck in her throat. She feels it is worse at night and it sometimes makes it feel like it is difficult to swallow. She denies any PND, or ear pain or fullness. She has had EGD done in 2016. She has had ph study that was negative. Review of Systems Constitutional: Negative for activity change, fatigue and fever. HENT: Positive for trouble swallowing (sensation). Negative for congestion, postnasal drip, rhinorrhea, sinus pressure and sore throat. Respiratory: Negative for cough, chest tightness and shortness of breath. Cardiovascular: Negative for chest pain, palpitations and leg swelling. Gastrointestinal: Negative for abdominal distention, abdominal pain, nausea and vomiting. Neurological: Negative for dizziness, light-headedness and headaches. Allergies Allergen Reactions ??? Codeine Nausea And Vomiting ??? Unable To Find [Unclassified Drug] Seasonal Current Outpatient Medications Medication Sig Dispense Refill ??? ferrous sulfate 325 mg (65 mg [...] instructed until next appointment in 6-8 weeks. (Patient not taking: Reported on 01/28/2019) 15 g 0 No current facility-administered medications [...] R79.89 ??? Gastroesophageal reflux K21.9 OBJECTIVE: Vitals: 01/28/19 1347 01/28/19 1356 01/28/19 1359 BP: 129/70 129/74 124/73 BP Location (NBP): Right arm Right arm Right arm Patient Position: Lying Standing Standing BP Cuff Sizes: Adult (25-34 cm) Adult (25-34 cm) Adult (25-34 cm) Pulse: 68 77 75 Weight: 55.3 kg (122 lb) Height: 152.4 cm (5') PHYSICAL EXAM: Physical Exam Constitutional: She is oriented to person, place, and time. She appears well- developed and well-nourished. HENT: Head: Normocephalic and atraumatic. Right Ear: Tympanic membrane, external ear and ear canal normal. Left Ear: Tympanic membrane, external ear and ear canal normal. Nose: Nose normal. Right sinus exhibits no maxillary sinus tenderness and no frontal sinus tenderness. Left sinus exhibits [...] & PLAN: Elida was seen today for other, dizziness and wrist pain. Diagnoses and all orders for this visit: Globus sensation - Referral to Gastroenterology - concern for stricture or esphagitis, will do egd for further evaluation. Recommend trial of flonase as well to see if that will help her symptoms. - she is to continue on nexium and ranitidine. Other orders - fluticasone propionate (FLONASE) 50 mcg/actuation [place], Suspension; 1 spray by Each Nare route daily. documented in this encounter Plan of Treatment Scheduled Referrals Name Type Priority Associated Order Schedule Diagnoses Referral to Outpatient Routine Globus sensation Ordered: Gastroenterology Referral 01/28/2019 documented as of this encounter Visit Diagnoses Diagnosis Globus sensation Gastrointestinal malfunction arising fro m mental factors documented in this encounter Care Teams Ball Assembler Relationship Specialty Start Date End Date Allison Granados APRN PCP - General 04/22/14 06/27/[address] [facility] [place] [address] documented as of this encounter
--- OUTSIDE RECORDS SUMMARY | 2021-12-28 04:08 | XMS_ITS | Encounter Summary ---
:1950 Author Organization [facility] [place] [address] Care Team Providers Name Role Phone Allison Granados APRN Primary Care Provider [phone] Encounter Details Date Type Department Care Team Description 09/02/2019 Office Visit Gastroenterology at [facility], Gastroesophageal reflux dise ase, esophagitis presence not specified; One [facility] Marilyn Henry MD Monie esophagitis; [place] [address] One [facility] Constipation, unspecified co nstipation type [phone] [place] [address] Social History Tobacco Use Types Packs/Day Years [...] Sign Reading Time Taken Comments Blood Pressure 122/71 09/02/2019 8:49 AM EST Pulse 56 09/02/2019 8:49 AM EST Temperature - - Respiratory Rate - - Oxygen Saturation - - Inhaled Oxygen Concentration - - Weight 56.2 kg (123 lb 14.4 oz) 09/02/2019 8:49 AM EST Height 153 cm (5' 0.25) 09/02/2019 8:49 AM EST Body Mass Index 24 09/02/2019 8:49 AM EST documented in this encounter Patient Instructions Patient InstructionsDevi Rosa MD - 09/02/2019 8:30 AM EST Thank you for coming in to see me today. I think you are doing very well. Here is the plan we developed together: Nexium 40 mg twice daily. Ranitidine 300 mg twice daily. Baclofen 10 mg twice daily. Metamucil two teaspoons at night. Hyosyacmine as needed. Defer impedance testing - will order if symptoms recur. Consider trial of Gaviscon and TCA for visceral hypersensitivity and functional heartburn. Return to clinic in 6 months. documented in this encounter Progress Notes Devi Rosa MD - 09/02/2019 8:30 AM EST Gastroenterology & Hepatology Follow-up Note Patient Active [...] B37.81 ??? Hiatal hernia K44.9 LAST VISIT: 04/24/2019 HISTORY OF PRESENT ILLNESS Elida Montez is a 68 y.o. female who with??GERD, functional bowel disorder predominantly constipation, and h/o vomiting/regurgitation who presents for follow-up visit. At her last visit, she was having breakthrough sensation of regurgitation and pressure in her throat despite twice daily Nexium andH2 chato at night. I wondered about non-acic reflux contributing. Of note, she has had HREM with ineffective esophageal motility precluding surgery (miryam fundoplication). We discussed: 1. Trial of baclofen 5 mg twice [...] MIralax once daily. 7. Return 4 months. The last three weeks, she was having increased regurgitation of half of her food associated chest pain. She was given a 9 day prescription for fluconazole and feels much better already. H/o monie on EGD in 02/2019. Taking baclofen 10 mg BID. Thinks this made a big difference overall sicne her last visit with me. No side effects. Had a day of constipation that responded to Metamucil - 2 teaspoons at night. Miralax didn't help. Some minor transient cramping with BMs that resolves spontaneously. Using levsin very infrequently. Medication trials: Nexium 40 mg BID??- no improvement in dysphagia, controls GERD Zantac??300 mg QHS - no??improvement??in dysphagia, controls GERD Miralax PRN -??helped constipation Metamucil - results in once daily BM Reglan 5 mg QAC, QHS - caused leg pain Fluconazole - helped regurgitation and esophageal symptoms a lot Baclofen 10 mg BID - helped a lot ?? Testing: Colonoscopy in 2008 was normal. [...] US 04/2019 - normal liver, s/p felipe ?? MEDICATIONS Current Outpatient Medications on File Prior to Visit Medication Sig Dispense Refill ??? fluconazole (Diflucan) 100 mg Tablet Take 1 tablet by mouth daily. 200 mg the first day and ozdn201 mg daily for another 9 days. 11 [...] 2 ??? fluticasone propionate (FLONASE) 50 mcg/actuation [place], Suspension 1 spray by Each Nare route [...] reviewed. Medications and allergies reviewed. PHYSICAL EXAM: Most Recent Vitals: 09/02/19 0849 BP: 122/71 Pulse: 56 Wt Readings from Last 3 Encounters: 09/02/19 56.2 kg (123 lb 14.4 oz) 08/26/19 56.5 kg (124 lb 9.6 oz) 07/14/19 56.9 kg (125 lb 6.4 oz) GEN: Alert, cooperative. Pleasant. In NAD EXT: No C/C/E NEURO: Grossly intact ASSESSMENT AND PLAN Elida Montez is a 68 y.o. with??GERD, functional bowel disorder predominantly constipation, h/o cnadida esophagitis and h/o vomiting/regurgitation who presents for follow-up visit. She is doing verywell overall with recent course of empiric fluconazole and increased dose of baclofen. We discussed the following recommendations that were printed out for the patient: Continue Nexium 40 mg twice daily. Continue Ranitidine 300 mg twice daily. Continue Baclofen 10 mg twice daily. Metamucil two teaspoons at night. Hold Miralax. Hyosyacmine as needed. Defer impedance testing - will order if esophageal symptoms recur (can do without clinic visit) and consider repeat EGD as well. Consider trial of Gaviscon and TCA for visceral hypersensitivity and functional heartburn. Return to clinic in 6 months. All of the patient's questions were answered. Devi Rosa MD speech pathology supervisor Section of Gastroenterology [place] [address] documented in this encounter Plan of Treatment Not on filedocumented as of this encounter Visit Diagnoses Diagnosis Gastroesophageal reflux disease, esophag itis presence not specified Monie esophagitis Candidiasis of the esophagus Constipation, unspecified constipation t ype documented in this encounter Care Teams Network Support Manager Relationship Specialty Start Date End Date Allison Granados, SOILA PCP - General 04/22/14 06/27/[address] [facility] [address] ROD INTERNAL [facility] [place] [address] documented as of this encounter
--- OUTSIDE RECORDS SUMMARY | 2021-12-28 04:08 | XMS_ITS | Encounter Summary ---
:1950 Author Organization [facility] Address [place] [address] Care Team Providers Name Role Phone Allison Granados APRN Primary Care Provider [phone] Reason for Visit Reason Comments Emesis mucus only Cough Encounter Details Date Type Department Care Team Description 08/19/2018 Office Visit Internal Medicine at [facility] upper quadrant pain; Renny Franks MD Chest pain, unspecified type; [address] [facility] Cough, [place] [address] GENERAL INTERNAL [phone] MEDICINE [place] [id number] (Wo rk) Social History Tobacco Use Types [...] Sign Reading Time Taken Comments Blood Pressure 110/68 08/19/2018 1:36 PM EST Pulse 83 08/19/2018 1:36 PM EST Temperature 36.6 ??C (97.8 ??F) 08/19/2018 1:36 PM EST Respiratory Rate - - Oxygen Saturation 98% 08/19/2018 1:36 PM EST Inhaled Oxygen Concentration - - Weight 53.8 kg (118 lb 9.6 oz) 08/19/2018 1:36 PM EST Height 165.1 cm (5' 5) 08/19/2018 1:36 PM EST Body Mass Index 19.74 08/19/2018 1:36 PM EST documented in this encounter Patient Instructions Patient InstructionsTere Salazar MD - 08/19/2018 2:00 PM EST - We will check your labs today and I will get back to you if there are any notable problems - You can treat you abdominal symptoms with Pepto-Bismol, akil tea, other agents you might find helpful - I called in Tessalon Pearles to help with your cough. You can take these with Robitussin or NyQuil - Please call or go to the ED if you have fevers with or without chills/body aches, and any worsening or concerning symptoms documented in this encounter Progress Notes Tere Salazar MD - 08/19/2018 2:00 PM EST ESTABLISHED PATIENT VISIT I. HISTORY a. Reason(s) for Visit: Elida Montez 67 y.o. female with a history of asthma who presents today due to complaint(s) of: Chief Complaint Patient presents with ??? Emesis mucus only ??? Cough b. History of Present Illness: She was first seen for her symptoms 08/04/2018. At that time, she had two weeks of URI symptoms preceding her visit with cough productive of yellow sputum, sinus pressure, shortness of breath, and chesttightness. She was given a 7-day course of Augmentin and continued her home inhalers. She reports feeling a little better after completing antibiotics (around 2/4), but then things wentcrazy a few days later. Her cough got worse than it was to begin with. Last night, she developed pains all across her belly with gas. She also vomited up what looks like mucus - yellowish brown, white- twice last night without blood, bile, or food; this was not preceded by nausea but she felt like the sputum was choking the back of her throat. There was nothing else in the vomitus. She is taking Robitussin and NyQuil for the cough, but this hasn't been much help. She also has chest discomfort fromepigastrium upward without sensation of burning or reflux. This feels a little different than her reflux pain in that its more annoying. She has sicks contacts at home - her had the same cough but is doing better. No other major exposures. Of note she had a colonoscopy 07/2018 significant for diverticulosis. cDavie ROS (positives in bold): Constitutional - fevers, chills (T 97F), body aches, fatigue Cardiovascular - chest pain, palpitations, angina Respiratory - SOB, EDWARDS, wheeze, cough, sputum production HEENT - diffculty swallowing, hearing, ears plugged (worse on right), sore throat, nasal congestion or postnasal drip Gastrointestinal - abdominal pain, gas, nausea, vomiting, GERD, constipation, diarrhea, blood in stool, dark tarry stools Genitourinary - urinary frequency, urgency, burning, hematuria Musculoskeletal - joint swelling or redness Integument - rashes Neurological - headaches, vision changes d. PMH Patient Active Problem List Diagnosis [...] glass of wine/month II. PHYSICAL EXAM: BP 110/68 Pulse 83 Temp 36.6 ??C (97.8 ??F) (Oral) Ht 165.1 cm (5' 5) Wt 53.8 kg (118 lb 9.6 oz) SpO2 98% BMI 19.74 kg/m?? General: alert, oriented, in no acute distress, fatigued-appearing but not toxic HEENNT: atraumatic, normocephalic, sclera non-icteric, conjunctiva pink, PERRL, EOMI, canals clear, TMs with normal light reflex, no rhinorrhea, neck supple without LAD, oropharynx clear without exudate, moist mucous membranes Cardiovascular: RRR, normal S1/S2, no murmurs/rubs/gallps Lungs: chest symmetric, normal effort, CTABL Abdomen: +BS, soft, non-distended, no organomegaly, no rebound or guarding, mild TTP in left upper quadrant Extremities: no ROBERTO EKG: sinus rhythm without signs of acute ischemic changes III. ASSESSMENT/PLAN:Elida Montez 67 y.o. female presenting with epigastric abdominal pain, vomiting, and cough. It is unclear if all these symptoms are related or if the GI symptoms and cough are separate issues. Differential includes viral illness, peptic ulcer disease, diverticulitis, cardiac ischemia. EKG not concerning for an acute process. We will start with labs and treat symptoms while following closely. Diagnoses and all orders for this visit: Left upper quadrant pain - CBC - Complete metabolic panel - Pepto-Bismol or other soothing agent - Rest, fluids - Discussed return precautions - Will check in by phone on Friday Cough, persistent - Tessalon Pearles - Continue Robitussin or NyQuil Zayda Vanegas MD - 08/19/2018 2:00 PM EST The case was discussed at the time of the visit or immediately after the visit. The assessment and plan were formulated in discussion with me and I agree with them as documented. I have reviewed the history, physical exam, assessment and plan with the resident. Major issues discussed today: 67 year old woman with a history of asthma, osteoporosis, GERD, IBS, and RLS, here for evaluation of cough and vomiting. Seen in clinic on 08/04 with a cough, sinus pressure, dyspnea and chest tightness--this was thought to represent a combined asthma exacerbation and bacterial pneumonia, and she was prescribed a 7-day course of Augmentin. She reports that the Augmentin resulted in good improvement in symptoms; however, in the last few days she has developed a recurrent cough, as well as new non-bloody emesis (occurring twice in the last day), in addition to new epigastric discomfort, new increased flatulence and new R ear fullness. No associated fevers, night sweats, diarrhea, blood in stools, tenesmus, or weight loss. Colonoscopy performed at the end of July was unremarkable with the exception of diverticulosis, with a plan to repeat in 10 years. No sick contacts beyond her , who had a cough similar to hers at the end of July. Vitals: 08/19/18 1336 BP: 110/68 Pulse: 83 Temp: 36.6 ??C (97.8 ??F) TempSrc: Oral SpO2: 98% Weight: 53.8 kg (118 lb 9.6 oz) Height: 165.1 cm (5' 5) Per Dr Salazar, non-toxic but mildly fatigued appearing elderly woman in no acute distress Unremarkable HEENT, cardiac and pulmonary exams Abdominal exam notable for mild TTP in the LUQ without associated rigidity, rebound or guarding, +normal active bowel sounds, no appreciated masses or hepatosplenomegaly Plan: New epigastric discomfort and vomiting of unclear etiology--differential diagnosis is broad and includes viral illness, PUD, cardiac etiology. EKG today without obvious ischemic changes, not appreciably changed from prior. Will obtain CBC and CMP to further evaluate. Otherwise, encourage fluids,rest, bland diet, use of PeptoBismol as needed and benzonatate for cough suppression. Dr Salazar will check in by phone on Friday (in 48 hours) to assess whether symptoms are improving. documented in this encounter Plan of Treatment Not on filedocumented as of this encounter Procedures Procedure Name Priority Date/Time Associated Comments Diagnosis EKG 12-LEAD Routine 08/19/2018 4:24 PM Chest pain, Results f or this EST unspecified type procedure a re in the results section. HEMOGRAM Routine 08/19/2018 3:46 PM Left upper quadrant Re sults for this EST pain procedure are in Cough, persistent the result s section. DIFFERENTIAL, Routine 08/19/2018 3:46 PM Left upper quadrant R esults for this AUTOMATED EST pain procedure are in Cough, persistent the result s section. CBC (WITH DIFF) Routine 08/19/2018 3:46 PM Left upper quadrant EST pain Cough, persistent COMPREHENSIVE Routine 08/19/2018 3:46 PM Left upper quadrant R esults for this METABOLIC PANEL EST pain procedure ar e in (NON-FASTING) the results section. documented in this encounter Results EKG 12 Lead (08/19/2018 4:24 PM EST) [facility] StyleUp Method Time Signature Ventricular rate 71 BPM MUSE SYSTEM Atrial Rate 71 BPM MUSE SYSTEM P-R Interval 128 ms MUSE SYSTEM QRS Duration 76 ms MUSE SYSTEM Q-T Interval 398 ms MUSE SYSTEM QTC Calculated 432 ms MUSE SYSTEM (Bezet) Calculated P [place] 50 degrees MUSE SYSTEM Calculated R [place] 23 degrees MUSE SYSTEM Calculated T [place] 22 degrees MUSE SYSTEM INTERPRETATION Normal sinus rhythm MUSE SYSTEM Normal ECG No previous ECGs available Confirmed by MD TORRES, TRAV ([id number]) on 08/20/2018 8:36:32 AM Specimen Anatomical Collection Method Collection Time Receive d Time (Source) Location / / Volume Laterality 08/19/2018 4:24 PM 9 8:36 EST AM EST Zayda Vanegas MD ECG ORDERABLES Performing Organization Address City/State/ZIP Code Phon e Number MUSE SYSTEM (ABNORMAL) Differential, Automated (08/19/2018 3:46 PM EST) [facility] StyleUp Method Time Signature Neutrophils % 60.7 % [facility] Neutr Abs (ANC) 4.58 1.70 - [facility] 6.10 [facility] x10(3)/[facility] LABORATORY Lymphocytes % 15.4 % [facility] Lymphocytes Abs 1.2 0.9 - 3.2 [facility] x10(3)/[facility] LABORATORY Monocytes % 18.6 % [facility] Monocyte Abs 1.4 (H) 0.3 - 0.9 [facility] x10(3)/[facility] LABORATORY Eosinophils % 3.2 % [facility] Eosinophils Abs 0.2 0.0 - 0.4 [facility] x10(3)/[facility]ORATORY Basophils % 1.3 % [facility] Basophils Abs 0.1 0.0 - 0.1 [facility] x10(3)/[facility] LABORATORY Immature Gran % 0.80 % [facility] Comment: Immature granulocytes(IG's)percentage an d absolute count will include metamyelocytes, myelocytes, and promyelo cytes. Blood smears from CBCs yielding IG's will be scanned manually for concor dance. If this scan disagrees with the automated IG or if promyelocytes are not ed, a manual differential will be performed. Zena Gran Abs 0.06 (H) 0.00 - 0.04 x10(3)/[facility] LABORATORY Specimen Anatomical Collection Method Collection Time Receive d Time (Source) Location / / Volume Laterality Blood specimen 08/19/2018 3:46 PM 019 7:04 (specimen) EST PM EST Resulting Agency Comment Spec In Lab [facility] MD HEMATOLOGY ORDERABLES Performing Organization Address City/State/[place] [address] (ABNORMAL) Hemogram (08/19/2018 3:46 PM EST) Analysis Performed At Patho logist Time Signature WBC 7.5 4.0 - 9.5 [facility] x10(3)/[facility] LABORATORY RBC 5.04 4.00 - [facility] 5.21 [facility] x10(6)/[facility] LABORATORY Hemoglobin 15.1 11.7 - [facility] 15.5 gm/dL [facility] Hematocrit 45.9 (H) 35.7 - [facility] 45.8 % [facility] MCV 91.1 82.6 - [facility] 94.4 [facility] LABORATORY MCH 30.0 27.1 - [facility] 32.0 pg [facility] MCHC 32.9 31.7 - [facility] 35.0 gm/dL [facility] Platelets 335 145 - 357 [facility] x10(3)/[facility] LABORATORY RDWSD 44.1 37.0 - DIXIE CORKY 46.0 [facility] LABORATORY RDWCV 13.1 11.5 - [facility] 14.1 % [facility] MPV 10.3 7.6 - 12.9 [facility] LABORATORY nRBC % Auto 0.0 % [facility] nRBC Abs Auto 0.000 0.000 - [facility] 0.000 [facility] x10(3)/[facility] LABORATORY Specimen Anatomical Collection Method Collection Time Receive d Time (Source) Location / / Volume Laterality Blood specimen 08/19/2018 3:46 PM 019 7:04 (specimen) EST PM EST Resulting Agency Comment Spec In Lab Tere Salazar MD HEMATOLOGY ORDERABLES Performing Organization Address City/State/[place] [address] (ABNORMAL) Comprehensive metabolic panel (non-fasting) (08/19/2018 3:46 PM EST) P athologist Signature Glucose Lvl 91 65 - 199 [facility] mg/dL [facility] Comment: Diabetes: >=200 mg/dL plus symp toms BUN 14 8 - 18 mg/dL [facility] Creatinine 0.66 (L) 0.70 - 1.20 mg/dL [facility] Sodium 143 135 - 145 mmol/L [facility] Potassium 4.3 3.5 - 5.0 mmol/L [facility] Comment: Please note: ??Patients with WBC >100,00 0 may have falsely elevated Potassium levels. ??For accurate Potassium quantif ication in these patients send serum separator tube (gold top) for subsequent determinations. ??Contact the Clinical Chemistry Laboratory if there are any qu estions. Chloride 105 98 - 107 mmol/L [facility] CO2 25 22 - 31 mmol/L [facility] Anion Gap 13 5 - 15 mmol/L [facility] Calcium 9.1 8.5 - 10.5 mg/dL [facility] Total Protein 7.4 6.1 - 8.0 gm/dL [facility] Albumin 4.5 3.2 - 5.2 gm/dL [facility] AST 25 0 - 30 unit/L [facility] ALT 28 0 - 30 unit/L [facility] Alk Phos 79 40 - 104 unit/L [facility] Total Bilirubin 0.5 0.2 - 1.3 mg/dL [facility] Estimated GFR 90 >=60 mL/min/1.73 m?? [facility] Comment: The eGFR was calculated using the CKD-EP I equation. As with all creatinine based estimates of kidney function, eGFR values calculated with the CKD-EPI equation are not accurate in patients wi th acute kidney failure, extremes of body mass or the acutely ill. [email or web address] eGFR 104 >=60 mL/min/1.73 m?? [facility] Comment: The eGFR was calculated using the CKD-EP I equation. As with all creatinine based estimates of kidney function, eGFR values calculated with the CKD-EPI equation are not accurate in patients wi th acute kidney failure, extremes of body mass or the acutely ill. [email or web address] Specimen Anatomical Collection Method Collection Time Receive d Time (Source) Location / / Volume Laterality Blood specimen 08/19/2018 3:46 PM 019 7:04 (specimen) EST PM EST Resulting Agency Comment Spec In Lab Zayda Vanegas MD CHEMISTRY ORDERABLES Performing Organization Address City/State/[place] [address] documented in this encounter Visit Diagnoses Diagnosis Left upper quadrant pain Abdominal pain, left upper quadrant Chest pain, unspecified type Cough, persistent Cough documented in this encounter Care Teams Television Maintenance Man Relationship Specialty Start Date End Date Allison Granados APRN PCP - General 04/22/14 06/27/21 [facility] [address] [place] [place] [address] documented as of this encounter
--- OUTSIDE RECORDS SUMMARY | 2021-12-28 04:08 | XMS_ITS | Encounter Summary ---
:1950 Author Organization [facility] Address [facility] [place] [address] Care Team Providers Name Role Phone Allison Granados APRN Primary Care Provider [phone] Reason for Visit Reason Comments Dysuria started yesterday Encounter Details Date Type Department Care Team Description 12/25/2018 Office Visit Internal Medicine at [place], Eliecer Zuleta; Renny Teague MD Acute cystitis with hematuria [address] [address] [place] [address] [place] [address] [phone] Social History Tobacco Use Types Packs/Day Years [...] Sign Reading Time Taken Comments Blood Pressure 111/63 12/25/2018 1:36 PM EDT Pulse 93 12/25/2018 1:36 PM EDT Temperature 37.5 ??C (99.5 ??F) 12/25/2018 1:36 PM EDT Respiratory Rate - - Oxygen Saturation 98% 12/25/2018 1:36 PM EDT Inhaled Oxygen Concentration - - Weight 54.2 kg (119 lb 6.4 oz) 12/25/2018 1:36 PM EDT Height 152.4 cm (5') 12/25/2018 1:36 PM EDT reported Body Mass Index 23.32 12/25/2018 1:36 PM EDT documented in this encounter Patient Instructions Patient InstructionsCulvZayda johns MD - 12/25/2018 2:00 PM EDT Images from the original note were not included. Urine culture sent to confirm the infection--if the antibiotic does not cover your particular infection, we will call you Friday and send a new prescription Bactrim and pyridium sent to your pharmacy Seek urgent re-evaluation if you develop new fevers, chills or flank pain that would suggest inadequate treatment and spread to the kidneys Patient Education Urinary Tract Infection in Women: Care Instructions Your Care Instructions A urinary tract infection, or UTI, is a general term for an infection anywhere between the kidneys and the urethra (where urine comes out). Most UTIs are bladder infections. They often cause pain or burning when you urinate. UTIs are caused by bacteria and can be cured with antibiotics. Be sure to complete your treatment sothat the infection goes away. Follow-up care is a camacho part of your treatment and safety. Be sure to make and go to all appointments, and call your doctor if you are having problems. It's also a good idea to know your test results and keep a list of the medicines you take. How can you care for yourself at home? ?? Take your antibiotics as directed. Do not stop taking them just because you feel better. You needto take the full course of antibiotics. ?? Drink extra water and other fluids for the next day or two. This may help wash out the bacteria that are causing the infection. (If you have kidney, heart, or liver disease and have to limit fluids,talk with your doctor before you increase your fluid intake.) ?? Avoid drinks that are carbonated or have caffeine. They can irritate the bladder. ?? Urinate often. Try to empty your bladder each time. ?? To relieve pain, take a hot bath or lay a heating pad set on low over your lower belly or genitalarea. Never go to sleep with a heating pad in place. To prevent UTIs ?? Drink plenty of water each day. This helps you urinate often, which clears bacteria from your system. (If you have kidney, heart, or liver disease and have to limit fluids, talk with your doctor before you increase your fluid intake.) ?? Urinate when you need to. ?? Urinate right after you have sex. ?? Change sanitary pads often. ?? Avoid douches, bubble baths, feminine hygiene sprays, and other feminine hygiene products that have deodorants. ?? After going to the bathroom, wipe from front to back. When should you call for help? Call your doctor now or seek immediate medical care if: ? Symptoms such as fever, chills, nausea, or vomiting get worse or appear for the first time. ? You have new pain in your back just below your rib cage. This is called flank pain. ? There is new blood or pus in your urine. ? You have any problems with your antibiotic medicine. ??Watch closely for changes in your health, and be sure to contact your doctor if: ? You are not getting better after taking an antibiotic for 2 days. ? Your symptoms go away but then come back. Where can you learn more? Visit our health information library at [email or web address]. You can also view health information on [email or web address], your personal patient account. Log in or sign up today. Enter K848 in the search box to learn more about Urinary Tract Infection in Women: Care Instructions. Current as of: June 24, 2018 Content Version: 12.1 ?? [id number] [employer]. Care instructions adapted under license by [facility]. If you have questions about a medical condition or this instruction, always ask your healthcare professional. [employer] disclaims any warranty or liability for your use of this information. documented in this encounter Progress Notes Zayda Vanegas MD - 12/25/2018 2:00 PM EDT ESTABLISHED PATIENT - ACUTE VISIT Chief Complaint Patient presents with ??? Dysuria started yesterday Elida Montez is a 68 y.o. female patient of [facility] with a history of asthma, GERD, IBS, RLS and osteoporosis who presents for acute visit with concern for UTI. She reports that yesterday she noted pain with urination, along with associated urgency, frequency. She is not sure if she noted scant blood in her urine yesterday. No fevers or chills, night sweats, fatigue or back pain. She reports her last UTI was many years ago. No history of nephrolithiasis. Chart review reveals normal renal function. No known drug allergies. POC UA in clinic today is positive for leukocytes, protein, nitrite and blood. ROS: Constitutional - no fevers, chills, fatigue Gastrointestinal - +suprapubic pressure, no nausea or vomiting Skin - no new rashes Current Outpatient Medications on File Prior to Visit Medication Sig Dispense Refill ??? ibandronate (BONIVA) 150 mg Tablet Take [...] needed for Cramping. 30 tablet 5 ??? ferrous sulfate 325 mg (65 mg iron) Tablet, Delayed Release (E.C.) Take 1 tablet by mouth daily.90 tablet 3 ??? clobetasol (TEMOVATE) 0.05 % Ointment Apply scant amount topically to vulva daily as instructed until next appointment in 6-8 weeks. 15 g 0 ??? [DISCONTINUED] azithromycin (ZITHROMAX) 250 mg Tablet Day 1: Take 2 tablets daily, Day 2 - 5: Take one tablet daily (Patient not taking: Reported on 12/25/2018) 6 tablet 0 ??? [DISCONTINUED] benzonatate (TESSALON) 100 mg Capsule Take 1 capsule by mouth 3 times daily as needed for Cough. (Patient not taking: Reported on 12/25/2018) 30 tablet 0 ??? [DISCONTINUED] UNABLE TO FIND Over the counter, Simethicone 125mg. antigas softgels PRN ??? [DISCONTINUED] triamcinolone (KENALOG) 0.1 % Ointment Apply scant amount topically to affected area daily until symptoms resolve. Then decrease to every other day, then 1-2 times/ week. (Patient not taking: Reported on 12/25/2018) 15 g 0 No current facility-administered medications on file prior to visit. Patient Active Problem List Diagnosis Code [...] Elevated TSH R79.89 ??? Gastroesophageal reflux K21.9 Physical Exam: Vitals: 12/25/18 1336 BP: 111/63 Pulse: 93 Temp: 37.5 ??C (99.5 ??F) TempSrc: Oral SpO2: 98% Weight: 54.2 kg (119 lb 6.4 oz) Height: 152.4 cm (5') General: Pleasant, conversant, well-appearing elderly woman in no acute distress HEENT: NC/AT, EOMI, PERRL, sclera anicteric, MMM Abd: Soft, non-distended, normal active bowel sounds, no appreciated masses or hepatosplenomegaly, +mild suprapubic tenderness to deep palpation Back: No CVA tenderness Ext: Warm, well-perfused, no edema Neuro: Alert and oriented x 4, CN II - XII grossly intact, no focal deficits Assessment and Plan: Elida Montez is a 68 y.o. female patient of Allison Granados with a history of asthma, GERD, IBS, RLS and osteoporosis who presents for acute visit with concern for UTI, after developing dysuria, urgency, frequency and suprapubic fullness yesterday, without associated fevers, chills, night sweats, fatigue or flank pain. Exam today is notable for mild suprapubic tenderness without CVA tenderness, andPOC UA is consistent with UTI. We agreed to treat empirically with a 3-day course of Bactrim, and will await urine cultures to confirm adequate antibiotic coverage. She was agreeable to a prescription for pyridium for symptom relief. An educational handout on UTIs was provided, and return precautions were discussed--she will seek urgent re-evaluation if she develops new fevers, chills, persistent urinary symptoms, or new flank pain despite antibiotic therapy. Follow up with PCP Allison Granados as needed. documented in this encounter Miscellaneous Notes Addendum Note - Zayda Vanegas MD - 12/25/2018 2:00 PM EDT Addended by: ZAYDA VANEGAS on: 12/25/2018 02:02 PM Modules accepted: Level of Service documented in this encounter Plan of Treatment Not on filedocumented as of this encounter Procedures Procedure Name Priority Date/Time Associated Diagnosis Comme nts URINE CULTURE Routine 12/25/2018 2:02 PM Dysuria Results for this EDT procedure are i n the results section. POCT URINE DIPSTICK Routine 12/25/2018 1:35 PM Dysuria Re sults for this EDT procedure are i n the results section. documented in this encounter Results (ABNORMAL) Urine culture Clean Catch Urine (12/25/2018 2:02 PM EDT) [facility] Method Time Signature Urine Culture 50,000-99,000 DIXIE cfu/ml [facility] (A) [facility] Organism Escherichia DIXIE coli (A) [facility] Specimen (Source) Anatomical Collection Method Collection Time Re ceived Time Location / / Volume Laterality Urine specimen 12/25/2018 2:02 12/25/2018 7:05 obtained by clean PM EDT PM EDT catch procedure (specimen) Resulting Agency Comment Spec In Lab Organism Antibiotic Method Susceptibility Escherichia coli Amikacin [facility] METHOD Sensitive Escherichia coli Ampicillin [facility] METHOD Resistant Escherichia coli Ampicillin + Sulbactam [facility] METHOD Interme diate Escherichia coli Aztreonam [facility] METHOD Sensitive Escherichia coli Cefazolin [facility] METHOD Sensitive Escherichia coli Cefepime [facility]CROSCAN METHOD <=4: Sensitive Escherichia coli Ceftazidime [facility]CROS[facility] METHOD <=1: Sensitive Escherichia coli Ceftriaxone [facility] METHOD Sensitive Escherichia coli Cefuroxime [facility]CR[facility] METHOD Sensitive Escherichia coli Ciprofloxacin [facility] METHOD Sensitive Escherichia coli Ertapenem [facility] METHOD Sensitive Escherichia coli Gentamicin [facility] METHOD Sensitive Escherichia coli Levofloxacin [facility] METHOD Sensitive Escherichia coli Meropenem [facility]CR[facility] METHOD <=1: Sensitive Escherichia coli Nitrofurantoin [facility] METHOD Sensitive Escherichia coli Piperacillin/Tazobactam [facility] METHOD <=16: Sensitive Escherichia coli Tetracycline MICROS[facility] METHOD Sensitive Escherichia coli Tobramycin [facility] METHOD Sensitive Escherichia coli Trimethoprim/Sulfa [facility] METHOD Sensitive Zayda Vanegas MD MICROBIOLOGY - GENERAL ORDER SOURAV Performing Organization Address City/State/[place] [address] POCT urine dipstick (12/25/2018 1:35 PM EDT) [facility] Method Time Signature POC Sp Mcbain 1.010 1.002 - 1.030 POC pH, UA 6 5.0 - 8.5 POC Leuk, UA ++ Negative - Negative POC Nitrite, pos Negative - UA Negative POC Protein, 30 Negative - UA Negative mg/dL POC Glucose, norm Normal - UA Normal mg/dL POC Ketone, UA neg Negative - Negative POC Urobil, UA norm 0.2 - 1.0 mg/dL POC Bili, UA neg Negative - Negative POC Blood, UA about 50 Negative - Negative aaron/uL Specimen (Source) Anatomical Collection Method Collection Time Re ceived Time Location / / Volume Laterality 12/25/2018 1:35 PM EDT Zayda Vanegas MD POINT OF CARE TEST ORDERABLE S documented in this encounter Visit Diagnoses Diagnosis Dysuria Acute cystitis with hematuria Acute cystitis documented in this encounter Care Teams Bag Bailer Relationship Specialty Start Date End Date Allison Granados APRN PCP - General 04/22/14 06/27/[address] [facility] [place] [address] documented as of this encounter
--- OUTSIDE RECORDS SUMMARY | 2021-12-28 04:08 | XMS_ITS | Encounter Summary ---
:1950 Author Organization [facility] [place] [address] Care Team Providers Name Role Phone Allison Hector APRN Primary Care Provider [phone] Encounter Details Date Type Department Care Team Description 04/08/2019 Hospital Encounter Ultrasound at [facility] Allison Hector, [place] [address] [facility], [place] [address] (Wo rk) Social History Tobacco [...] LLQ as needed for abdominal pain Cramping. nystatin (MYCOSTATIN) Take 5 mLs by mouth 473 mL 2 03/2510/15/2019 100,000 unit/mL 4 times daily. Suspension Swish and swallow. Continue for 48 hours after resolution symptoms or up to 7-14 days fluticasone propionate 1 spray by Each 16 g 12 01/29/20 19 12/28/2020 (FLONASE) 50 Nare route daily. mcg/actuation Webster, Suspension ferrous sulfate 325 mg Take 1 [...] Priority Date/Time Associated Diagnosis Comme nts US ABDOMEN LIMITED Routine 04/08/2019 8:31 AM RUQ pain Res ults for this EDT procedure are i n the results section. documented in this encounter Results US Abdomen Limited (04/08/2019 8:31 AM EDT) Anatomical Region Laterality Modality Abdomen Ultrasound Specimen (Source) Anatomical Collection Method Collection Time Re ceived Time Location / / Volume Laterality 04/08/2019 8:32 AM EDT Impressions 04/08/2019 8:49 AM EDT 1. The liver is normal in size and echo genicity. No focal hepatic mass is seen. 2. Patient is status post cholecystecto my. No biliary ductal dilatation. Thank you for letting us participate in the care of this patient. For questions regarding this report, please contact t he number below. Electronically signed by: Isaiah ramirez [facility] [place] ([phone]), at 8:41 AM ? Isaiah Conn, Staff Physician Electronically Signed Final Report ?? 08:48 am Narrative 04/08/2019 8:49 AM EDT Abdominal ? (Signed Final 04/08/2019 08:48 am) PATIENT INFO: ID #: ? [id number] ?: ??[birth year] (68 yrs) Name: ? JAGRUTITiny DINH ?Visit Date: 04/08/2019 08:32 am PERFORMED BY: Performed By: ? Angel Lloyd RDMS Attending: ?Senia DARDEN, Eric Faust Referred By: ?ALLISON HECTOR Location: ? [place] SERVICE(S) PROVIDED: ??UABDLIM - Abdominal Limited Survey [place] ? [id number] ??Organ or Quadrant - [id number] INDICATIONS: ??ruq pain, palpable liver COMPARISON: Ultrasound: Abdomen Limited 11/24/14, C T - Abdomen Pelvis 01/23/18 ------ LIVER: ------ Right Lobe Length: ?? 14.1 ?? cm Echogenicity/Echotexture: ?? Normal Portal Veins: ?Hepatopetal Comment: ?No focal mass seen. GALLBLADDER: Comment: ?Surgically Absent BILIARY TRACT: Intrahepatic Ducts: ?? Normal Extrahepatic Ducts: ?? Normal Common Duct Size: ? 4.0 ? mm --------- PANCREAS: --------- Head: ? Poorly visua lized due to overlying bowel Tail: ? Not visualiz ed, obscured by overlying ? bowel Body: ? Poorly visua lized due to overlying bowel RIGHT KIDNEY: Size (cm) ?L: ??9.8 Cortical Thickness: ?Normal Cortical Echogenicity: ?? Normal Hydronephrosis: ?No sonogr aphic evidence Comment: ?Lower pole partially obsc ured by bowel gas ------ AORTA: ------ Measurements (cm): Proximal ? AP: ?? 2.5 Comment: ?Normal in caliber where v isualized. ---- IVC: ---- Normal in caliber where visualized. FLUID COLLECTIONS: No ascites in the imaged RUQ & RLQ. Procedure Note Isaiah Conn MD - 04/08/2019Format ting of this note might be different from the original. Abdominal (Signed Final 04/08/2019 08:4 8 am) PATIENT INFO: ID #: [id number] : [birth year] (68 y rs) Name: JAGRUTI DINH Visit Date: 04/08 08:32 am PERFORMED BY: Performed By: Angel Lloyd RDMS Attending: Isaiah Conn MD Referred By: ALLISON HECTOR Location: [place] SERVICE(S) PROVIDED: UABDLIM - Abdominal Limited Survey [facility] [address] Organ or Quadrant - [id number] INDICATIONS: ruq pain, palpable liver COMPARISON: Ultrasound: Abdomen Limited 11/24/14, C T - Abdomen Pelvis 01/23/18 ------ LIVER: ------ Right Lobe Length: 14.1 cm Echogenicity/Echotexture: Normal Portal Veins: Hepatopetal Comment: No focal mass seen. GALLBLADDER: Comment: Surgically Absent BILIARY TRACT: Intrahepatic Ducts: Normal Extrahepatic Ducts: Normal Common Duct Size: 4.0 mm --------- PANCREAS: --------- Head: Poorly visualized due to overlyin g bowel Tail: Not visualized, obscured by overl pedro bowel Body: Poorly visualized due to overlyin g bowel RIGHT KIDNEY: Size (cm) L: 9.8 Cortical Thickness: Normal Cortical Echogenicity: Normal Hydronephrosis: No sonographic evidence Comment: Lower pole partially obscured by bowel gas ------ AORTA: ------ Measurements (cm): Proximal AP: 2.5 Comment: Normal in caliber where visual ized. ---- IVC: ---- Normal in caliber where visualized. FLUID COLLECTIONS: No ascites in the imaged RUQ & RLQ. IMPRESSION 1. The liver is normal in size and echo genicity. No focal hepatic mass is seen. 2. Patient is status post cholecystecto my. No biliary ductal dilatation. Thank you for letting us participate in the care of this patient. For questions regarding this report, please contact ashley cherry number below. Electronically signed by: Isaiah ramirez, [facility] [place] ([phone]), at 8:41 AM Isaiah Conn, Staff Physician Electronically Signed Final Report 04/08 08:48 am Allison Hector APRN IMG US GEN ORDERABLES documented in this encounter Visit Diagnoses Diagnosis RUQ pain Abdominal pain, right upper quadrant documented in this encounter Care Teams Bakery Decorator Relationship Specialty Start Date End Date Allison Hector APRN PCP - General 04/22/14 06/27/[address] [facility] [place] [address] documented as of this encounter
--- OUTSIDE RECORDS SUMMARY | 2021-12-28 04:08 | XMS_ITS | Encounter Summary ---
:1950 Author Organization [facility] [place] [address] Care Team Providers Name Role Phone Allison Granados APRN Primary Care Provider [phone] Encounter Details Date Type Department Care Team Description 07/31/2018 Surgery [place] [facility] Isaiah Cee, COLONOSCOPY, [facility] Marilyn [place] [address] [facility] [phone] DR GASTROENTEROLOGY [place], [place] [address] Social History Tobacco Use Types [...] to be checked. Friday-Friday Same Day Endo [phone] Otherwise contact [phone] and ask to speak to the hearing specialist household personal assistant Follow up care is a camacho part [...] TAKE ONE TABLET BY 3 tablet 3 05/ 11/10/2018 mg Tablet MOUTH EVERY 30 DAYS [...] encounter Results COLONOSCOPY (07/31/2018 9:13 AM EST) [facility] Method Time Signature COLONOSCOPY [facility] Endoscopy Procedure Date: 07/31/2018 9:13 AM ? Patient Name: Elida Montez ? Date of : 1950 ? Age: 67 ? Order #: [id number] ? Instrument Name: [id number] ? Procedure: ? Colonoscopy Indications: ? Screening for colorectal malignant ? neoplasm Providers: ? Isaiah Cee MD, Mary Grace Sotelo, ? Sharon Justin, ? Night Guard Referring MD: ?Allison Granados Medicines: ? Midazolam [...] was evaluat ed using ? the BBPS ([place] Bowel Prepar ation ? Scale) with scores [...] Laterality 07/31/2018 9:13 AM EST Allison Granados [facility] ORDERABLES Performing Organization Address City/State/ZIP Code Phon e Number [place] documented in this encounter Visit Diagnoses Not on filedocumented in this encounter Administered Medications Inactive Administered Medications - up to 3 most recent administrations Medication Order MAR Action Action Date Dose Rate Site fentaNYL 50 mcg/mL multi-dose Given 07/31/2018 9:52 AM EST 25 mc g injection ONCE PRN, Starting on Fri07/31/18 at 0935, Until Fri07/31/18 at 1259, Intra-Operative (Intra-Procedure), Routine Given 07/31/2018 9:49 AM EST 25 mcg Given 07/31/2018 9:45 AM EST 50 mcg lactated Ringers infusion New Bag 07/31/2018 9:08 AM EST 100 mL/hr 100 mL/hr 100 mL/hr, Intravenous, CONTINUOUS, Starting on Fri07/31/18 at 0900, Until Fri07/31/18 at 1051, Endoscopy (Day of Procedure) midazolam (PF) (VERSED) multi-dose injec tion Given 07/31/2018 9:53 AM EST 0.5 mg ONCE PRN, Starting on Fri07/31/18 at 0935, Until Fri07/31/18 at 1259, Intra-Operative (Intra-Procedure), Routine Given 07/31/2018 9:48 AM EST 0.5 mg Given 07/31/2018 9:45 AM EST 1 mg documented in this encounter Active [...] Grace Sotelo RN)0952 (Given - Provider: Mary Grace Sotelo RN) [...] Routine documented in this encounter Care Teams Spiral Binder Relationship Specialty Start Date End Date Allison Granados APRN PCP - General 04/22/14 06/27/[address] [facility] [address] [place] [address] documented as of this encounter
--- OUTSIDE RECORDS SUMMARY | 2021-12-28 04:08 | XMS_ITS | Encounter Summary ---
:1950 Author Organization [facility] [place] [address] Care Team Providers Name Role Phone Allison Granados APRN Primary Care Provider [phone] Reason for Visit Reason Onset Date Comments Medication Refill 09/02/2018 Encounter Details Date Type Department Care Team Description 09/02/2018 Refill Internal Medicine at [place] Allison Murphy [facility] DR Gutierrez [facility] [place] [address] RD [phone] [place], [place] [address] (Wo rk) Social History Tobacco [...] on filedocumented in this encounter Care Teams Lpn Home Health Relationship Specialty Start Date End Date Allison Granados, SOILA PCP - General 04/22/14 06/27/21 [facility] [address] [place] [address] documented as of this encounter
--- OUTSIDE RECORDS SUMMARY | 2021-12-28 04:08 | XMS_ITS | Encounter Summary ---
:1950 Author Organization [facility] [place] [address] Care Team Providers Name Role Phone Allison Granados APRN Primary Care Provider [phone] Reason for Visit Reason Onset Date Comments Triage 08/23/2019 Encounter Details Date Type Department Care Team Description 08/23/2019 Telephone Internal Medicine at [facility] Mirta Nancy Triage [address] [place] [address] Social History Tobacco Use Types [...] Telephone Encounter - Pilar Vo RN - 08/23/2019 8:58 AM EST Caller: patient Learning Needs Assessment Reviewed: No Subjective Abdominal pain Objective/Assessment Symptom onset: few weeks ago Location: LLQ Duration: occurs almost daily, lasts roughly 1/2 hour Characteristics: cramps either in morning or afternoon, usually once daily, can double her over in pain, goes away when she sits down and relaxes, located on LLQ, vomits after eating, roughly 10 minutes after eating, not every time, but thinks it is increasing in frequency, denies weight loss, is ableto keep liquids down, patient is having daily BM, normal stools, no distention, no pain with palpation, no rebound pain Aggravating factors: eating- uncertain if specific foods Relieving factors: resting Timin minutes after eating Severity: can double her over with pain Pertinent Past Medical History: Past Medical History: Diagnosis Date ??? Asthma ??? GERD (gastroesophageal reflux disease) Plan Intervention/Plan/ Follow Up: Pt scheduled to see Allison on Telephone Encounter - Nancy Kirby - 08/23/2019 8:33 AM EST Message: pt called to set up an appt with Charlie Akbar vomiting with stomach ain after she eats. I tried scheduling pt a SD, but she declined seeing someone other than Allison. Pt is scheduled for . Please call back to discuss symptoms and to see if pt should be seen sooner. Ask caller their first and last name and relationship to the patient: self Best time to call back: any Ok to leave a message: Ok to send [facility] message: Offered Appointment: MA/Nurse/Tutoring Manager contacted via: Message: y Call: n Pager: n documented in this encounter Plan of Treatment Not on filedocumented as of this encounter Visit Diagnoses Not on filedocumented in this encounter Care Teams Bulk Intake Worker Relationship Specialty Start Date End Date Allison Granados APRN PCP - General 04/22/14 06/27/[address] [facility] [address] [place] [address] documented as of this encounter
--- OUTSIDE RECORDS SUMMARY | 2021-12-28 04:08 | XMS_ITS | Encounter Summary ---
:1950 Author Organization [facility] [place] [address] Care Team Providers Name Role Phone Allison Granados APRN Primary Care Provider [phone] Reason for Visit Reason Onset Date Comments Medication Refill 11/10/2018 Encounter Details Date Type Department Care Team Description 11/10/2018 Refill Internal Medicine at [place] Allison Murphy [facility] DR Gutierrez [facility] [place] [address] RD [phone] [place], [place] [address] (Wo rk) Social History Tobacco [...] on filedocumented in this encounter Care Teams Hardness Tester Relationship Specialty Start Date End Date Allison Granados, SOILA PCP - General 04/22/14 06/27/21 [facility] [address] [place] [address] documented as of this encounter
--- OUTSIDE RECORDS SUMMARY | 2021-12-28 04:08 | XMS_ITS | Encounter Summary ---
:1950 Author Organization [facility] [place] [address] Care Team Providers Name Role Phone Allison Granados APRN Primary Care Provider [phone] Reason for Visit Reason Onset Date Comments Medication Refill 07/14/2018 Encounter Details Date Type Department Care Team Description 07/14/2018 Refill Obstetrics and Gynecology at [facility] Marilyn [facility] [place] [address] OBSTETRICS & GYNECOLOGY [phone] [place], [place] [address] (Wo rk) Social History Tobacco [...] on filedocumented in this encounter Care Teams Diamond Powder Technician Relationship Specialty Start Date End Date Allison Granados APRN PCP - General 04/22/14 06/27/[address] [facility] [place] [address] documented as of this encounter
--- OUTSIDE RECORDS SUMMARY | 2021-12-28 04:08 | XMS_ITS | Encounter Summary ---
:1950 Author Organization [facility] [place] [address] Care Team Providers Name Role Phone Allison Granados APRN Primary Care Provider [phone] Reason for Visit Reason Onset Date Comments Medication Refill 10/12/2018 Encounter Details Date Type Department Care Team Description 10/12/2018 Refill Internal Medicine at [place] Allison Murphy [facility] DR [facility]ierrez [facility] [place] [address] RD [phone] [place], [place] [address] (Wo rk) Social History Tobacco [...] on filedocumented in this encounter Care Teams Hr Business Partner Consultant Relationship Specialty Start Date End Date Allison Granados, SOILA PCP - General 04/22/14 06/27/21 [facility] [address] [place] [address] documented as of this encounter
--- OUTSIDE RECORDS SUMMARY | 2021-12-28 04:08 | XMS_ITS | Encounter Summary ---
:1950 Author Organization [facility] [place] [address] Care Team Providers Name Role Phone Allison Granados APRN Primary Care Provider [phone] Reason for Visit Reason Onset Date Comments Medication Refill 11/05/2018 Encounter Details Date Type Department Care Team Description 11/05/2018 Refill Internal Medicine at [place] Allison Murphy [facility] DR Gutierrez [facility] [place] [address] RD [phone] [place], [place] [address] (Wo rk) Social History Tobacco [...] on filedocumented in this encounter Care Teams Occupational Therapist Assistant Relationship Specialty Start Date End Date Allison Granados, SOILA PCP - General 04/22/14 06/27/[address] [facility] [address] [place] [address] documented as of this encounter
--- OUTSIDE RECORDS SUMMARY | 2021-12-28 04:08 | XMS_ITS | Encounter Summary ---
:1950 Author Organization [facility] [place] [address] Care Team Providers Name Role Phone Allison Granados APRN Primary Care Provider [phone] Reason for Visit Reason Onset Date Comments Appointment 01/08/2019 ER f/u Encounter Details Date Type Department Care Team Description 01/08/2019 Refill Internal Medicine at [facility] Kely Polo [address] [place], [place] [id number] Social History Tobacco Use Types Packs/Day Years [...] encounter Miscellaneous Notes Telephone Encounter - Corin Mclean RN - 01/08/2019 10:35 AM EDT Results reviewed with Allison. She changed antibiotic to Macrobid x 7 days. Patient informed. Orderpended. Advised to obtain OTC Azo for symptoms, and to call back Friday with update especially if she isn't feeling better and she agreed. Telephone Encounter - Corin Mclean RN - 01/08/2019 9:04 AM EDT Patient reports she went to [facility] ED for UTI sx. She had been experiencing pelvic pressure, fatigue, nausea/vomiting, fever. She states she was given scripts for Bactrim x 7 days, Pyridium, andzofran. Today she feels slightly better, but states the sx return unless she takes the pyridium. Shewas given 4 day supply of Bactrim due to insurance coverage plus 2 tabs at ED, total 5 days' worth of antibiotic. She has taken 4 doses thus far. She states the CT scan was negative for stones. She hasn't rechecked for fever today, but is sweating a lot and still feels slightly nauseous at times. Informed patient that this appeals writer will get results from ED visit and review with Allison this morning, and call her back with further instructions. TC to [facility] for ED notes and culture results. Telephone Encounter - Kely Polo - 01/08/2019 8:48 AM EDT Please call patient to discuss Emergency Room Follow Up Reason for the Emergency Room visit: UTI Name of the facility where patient was seen: [facility] Symptomatic now: Other information: Caller and Relationship (if other than patient): self Best time to call back: any Okay to leave a message: y Okay to send my- message: n Nurse contacted via: Message: y Call: n Pager: n documented in this encounter Plan of Treatment Not on filedocumented as of this encounter Visit Diagnoses Not on filedocumented in this encounter Care Teams Nuclear Control Room Operator Relationship Specialty Start Date End Date Roberta, Allison W, R[place] STAR PCP - General 04/22/14 06/27/21 [facility] [address] [place] [address] documented as of this encounter
--- OUTSIDE RECORDS SUMMARY | 2021-12-28 04:08 | XMS_ITS | Encounter Summary ---
:1950 Author Organization [place] [address] Care Team Providers Name Role Phone Allison Granados APRN Primary Care Provider [phone] Reason for Visit Reason Onset Date Comments Medication Refill 04/10/2019 Encounter Details Date Type Department Care Team Description 04/10/2019 Refill Internal Medicine at [place] Allison Murphy, [facility] DR Gutierrez [facility] [place] [address] RD [phone] [place], [place] [address] (Wo rk) Social History Tobacco [...] on filedocumented in this encounter Care Teams Brusher Hand Relationship Specialty Start Date End Date Allison Granados, SOILA PCP - General 04/22/14 06/27/[address] [facility] [address] [address] documented as of this encounter
--- OUTSIDE RECORDS SUMMARY | 2021-12-28 04:08 | XMS_ITS | Encounter Summary ---
:1950 Author Organization [place] [place] [address] Care Team Providers Name Role Phone Allison Granados APRN Primary Care Provider [phone] Encounter Details Date Type Department Care Team Description 08/21/2018 Telephone Internal Medicine at [place] Tere Nieves MD [facility] DR Gutierrez [facility] [place] [address] [phone] Social History Tobacco Use Types Packs/Day Years [...] this encounter Miscellaneous Notes Telephone Encounter - Tere Salazar MD - 08/21/2018 11:47 AM EST TC to patient to check in. Still has a cough but abdominal pain a little better without vomiting. Having soft BMs after eating. Offered an appointment, but she is planning on seeing GI earlier than previously scheduled. She will schedule with us if she has any questions or concerns. documented in this encounter Plan of Treatment Not on filedocumented as of this encounter Visit Diagnoses Not on filedocumented in this encounter Care Teams Diagrammer Relationship Specialty Start Date End Date Allison Granados, SOILA PCP - General 04/22/14 06/27/[address] [facility] [place] [address] documented as of this encounter
--- OUTSIDE RECORDS SUMMARY | 2021-12-28 04:08 | XMS_ITS | Encounter Summary ---
:1950 Author Organization [facility] [place] [address] Care Team Providers Name Role Phone Roberta Allison Rain APRN Primary Care Provider [phone] Encounter Details Date Type Department Care Team Description 09/04/2018 Office Visit [place] [facility] [place], Vomiting, intractability of vomiting not specified, presence of nausea not specified, unspecified vomiting type; [facility] Marilyn Henry MD Gastroesophageal reflux disease, esophag itis presence not specified; [place] [address] [facility] Constipation, unspecified co nstipation type [phone] [place] [address] Social History Tobacco Use Types Packs/Day Years [...] Sign Reading Time Taken Comments Blood Pressure 133/69 09/04/2018 10:51 AM EST Pulse 67 09/04/2018 10:51 AM EST Temperature - - Respiratory Rate - - Oxygen Saturation - - Inhaled Oxygen Concentration - - Weight 52.3 kg (115 lb 3.2 oz) 09/04/2018 10:51 AM EST Height 153.7 cm (5' 0.5) 09/04/2018 10:51 AM EST Body Mass Index 22.13 09/04/2018 10:51 AM EST documented in this encounter Patient Instructions Patient InstructionsDevi Rosa MD - 09/04/2018 11:00 AM EST Thank you for coming in to see me today. I think you have regurgitation related to possible slowing down of the stomach (gastroparesis), possibly related to your recent illness/cold. Here is the planwe developed together: Continue nexium 40 mg twice daily Continue zantact 300 mg at night Trial of metochlopramide 5 mg with meals and at bedtime (4 times per day) x 1-2 months. I counseled the patient on possible side effects including but not limited to allergic reaction, headache, tardive dyskinesia and other neurologic side effects especially while taking Prozac. Please stop taking if you develop any of these and to call me. Continue Miralax every morning. Continue Levsin as needed for the lower abdominal cramping. If you continue to have vomiting and any new pain in the upper stomach, we could consider a repeat endoscopy. ?? documented in this encounter Progress Notes Devi Rosa MD - 09/04/2018 11:00 AM EST Gastroenterology & Hepatology Follow-up Note [...] Elevated TSH R79.89 ??? Gastroesophageal reflux K21.9 LAST VISIT: 02/2018 HISTORY OF PRESENT ILLNESS Elida Montez is a 67 y.o. female with GERD and functional bowel disorder predominantly constipation who presents for follow-up visit to discuss new vomiting. At last visit her symptoms of GERD were not completely controlled on Nexium and Zantac. She was also having LLQ pain which I thought was due to spasming. Her constipation had improved with MiraLax. I recommended: 1. Trial of anti-spasmotic, Levsin PRN for LLQ cramping. 2. Take both doses of Zantac at bedtime 3. Screening colonoscopy next year Colonoscopy 07/31/2018 showed diverticulosis otherwise normal. Overall her GERD has been well controlled on Nexium 40 mg BID and Zantac 300 mg QHS such that she can lay flat at night. Since her colonoscopy, she has had more frequent vomiting. Sees food or yellow thick liquid. Happensafter walking the dog or while playing a game. Not usually nauseous. Will sit up straight in bed afterward. Happens 3-4 times per week. Had a head cold that started around the same time for which she received 7 days of Augmentin. Cold is better now. Heartburn and swallowing under control. Occasional globus sensation. Having regular BM with Miralax once daily. LLQ pain improves with Levsin. Only using once in a while Medication trials: Nexium 40 mg BID - no improvement in dysphagia Zantac 300 mg QHS - no improvement in dysphagia Miralax PRN - helped constipation Metamucil - results in once daily BM ?? Testing: Colonoscopy in 2008 was normal. EGD 12/2015 - normal, z line 35 cm Stress echo 02/2016 normal Cardiac enzymes 08/2016 negative HREM showed 100% failed swallow 09/2017 - ineffective esophageal motility [place] pH study on meds 09/2017 - minimal acid exposure, no symptoms [place] pH study off meds 11/2017 - pathologic acid reflux, assoc between regurgitation and acid refluxevents in supine position CT A/P 01/23/18 no sigmoid diverticulosis or diverticulitis Colonoscopy 07/2018 - diverticulosis, otherwise normal ?? MEDICATIONS Current Outpatient Medications on File Prior to Visit Medication Sig Dispense Refill ??? ranitidine (ZANTAC) [...] allergies reviewed. PHYSICAL EXAM: Most Recent Vitals: 09/04/18 1051 BP: 133/69 Pulse: 67 Wt Readings from Last 3 Encounters: 09/04/18 52.3 kg (115 lb 3.2 oz) 08/19/18 53.8 kg (118 lb 9.6 oz) 08/04/18 53.5 kg (118 lb) GEN: Alert, cooperative. Pleasant. In NAD HEENT: No oropharyngeal lesions. Neck supple. No masses. Thyroid symmetric LUNGS: CTAB CARD: RRR without m/g/r ABD: Non-distended. Active BS. Soft. Benign. No masses. No HSM. EXT: No C/C/E NEURO: Grossly intact RECENT LABS No results found for this or any previous visit (from the past 24 hour(s)). ASSESSMENT AND PLAN Elida Montez is a 67 y.o. with GERD, functional bowel disorder with constipation who presents forfollow-up. She has a new symptom of vomiting/regurgitation without nausea for the last month associated with a cold. I wonder if she had a viral gastroparesis complicating her baseline GERD. We discussed the following recommendations that were printed out for the patient: Continue nexium 40 mg BID Continue zantact 300 mg QHS. Trial of metochlopramide 5 mg QAC, QHS x 1 month. I counseled the patient on possible side effects including but not limited to allergic reaction, headache, tardive dyskinesia and other neurologic sideeffects especially while taking Prozan. She understands to stop taking if she develops any of these and to call me. Continue Miralax every morning. Continue Levsin as needed. If persistent vomiting or associated epigastric pain, consider EGD. RTC 6-9 months unless vomiting worsens. All of the patient's questions were answered. Devi Rosa MD psychiatry resident Section of Gastroenterology [place] [address] documented in this encounter Plan of Treatment Not on filedocumented as of this encounter Visit Diagnoses Diagnosis Vomiting, intractability of vomiting not specified, presence of nausea not specified, unspecified vomiting type Gastroesophageal reflux disease, esophag itis presence not specified Constipation, unspecified constipation t ype documented in this encounter Care Teams Project Developer Relationship Specialty Start Date End Date Allison Granados APRN PCP - General 04/22/14 06/27/21 [facility] [place] [address] documented as of this encounter
--- OUTSIDE RECORDS SUMMARY | 2021-12-28 04:08 | XMS_ITS | Encounter Summary ---
:1950 Author Organization [facility] Address [facility] [address] [place] [address] Care Team Providers Name Role Phone Roberta Allison Rain APRN Primary Care Provider [phone] Encounter Details Date Type Department Care Team Description 03/02/2019 Surgery Gastroenterology at [facility] Tariq Lindo, EGD WITH BIOPSY ([facility] Marilyn espinal MD 2.49) [place] [address] [facility] [phone] GASTROENTEROLOGY DEPT. [place], [place] [address] Social History Tobacco Use Types [...] Sign Reading Time Taken Comments Blood Pressure 134/71 03/02/2019 3:53 PM EDT Pulse 60 03/02/2019 3:53 PM EDT Temperature 36.5 ??C (97.7 ??F) 03/02/2019 3:53 PM EDT Respiratory Rate - - Oxygen Saturation 96% 03/02/2019 3:53 PM EDT Inhaled Oxygen Concentration - - [...] the day after the test, use an ebjz-caz-uesifgq spray to numb your throat. Follow-up care [...] Where can you learn more? Visit our [email or web address] information library at [email or web address]. You can also view health information on [employer], your personal patient account. Log in or sign up today. Enter J454 in the search box to learn more about Upper GI Endoscopy: What to Expect at Home. Current as of: May 13, 2018 Content Version: 12.1 ?? 8947-0078 SoundTag. Care instructions adapted under license by [facility]. If you have questions about a medical condition or this instruction, always ask your healthcare professional. [employer] disclaims any warranty or liability for your use of this information. Please call [phone] before 8pm Mon-Fri with problems, questions or concerns. If you call after 8pm or on weekends, call the Hospital at [phone] and ask to speak to the Escalator Service Mechanic manager operational and the electronic plotting system operator will contact that person for you. [...] 12/28/2020 (FLONASE) 50 Nare route daily. mcg/actuation [place], Suspension ferrous sulfate 325 mg Take 1 tablet by 90 tablet 3 07/02/2 019 12/20/2019 (65 mg iron) Tablet, mouth [...] PM 9 6:44 EDT PM EDT Narrative [facility] - 03/02/2019 6:44 PM EDT Specimen requisition ordered. ??Separate Pathology report to follow Resulting Agency Comment Spec In Lab L Julio Lindo MD PATHOLOGY/CYTOLOGY ORDERABLE S Performing Organization Address [facility]/[place]IP [place] [address] Specimen to Pathology (03/02/2019 6:15 PM EDT) Specimen Anatomical Collection Method Collection Time Receive d Time (Source) Location / / Volume Laterality AP Specimen 03/02/2019 6:15 PM 9 6:44 EDT PM EDT Narrative [facility] - 03/02/2019 6:44 PM EDT Specimen requisition ordered. ??Separate Pathology report to follow Resulting Agency Comment Spec In Lab L Julio Lindo MD PATHOLOGY/CYTOLOGY ORDERABLE S Performing Organization Address [facility] [place] [address] Specimen to Pathology (03/02/2019 6:15 PM EDT) Specimen Anatomical Collection Method Collection Time Receive d Time (Source) Location / / Volume Laterality AP Specimen 03/02/2019 6:15 PM 9 6:44 EDT PM EDT Narrative [facility] - 03/02/2019 6:44 PM EDT Specimen requisition ordered. ??Separate Pathology report to follow Resulting Agency Comment Spec In Lab L Julio Lindo MD PATHOLOGY/CYTOLOGY ORDERABLE S Performing Organization Address City/[facility]/ZIP [facility] [place] [address] Surgical Pathology Report (03/02/2019 6:10 PM EDT) Component Value Ref Test Analysis [facility] g[facility] Range Method Time Signature Surgical [id number] ? Location: 4T; EA10; [facility] Report The signing pathologist has (i) [...] Branham MD Verified: ??03/09/2019 ?Pathologist Performed at: ??-[facility] Dept. of Pathology, [place], [place] ADDITIONAL STUDIES GMS and PAS stains [...] Organization Address City/State/ZIP [place] [address] UPPER GI ENDOSCOPY (03/02/2019 5:47 PM EDT) Component Value Ref Test Analysis Performed At [facility] Range Method Time Signature UPPER GI [facility] ENDOSCOPY Endoscopy Procedure Date: 03/02/2019 5:47 PM ? Patient Name: Elida Montez ? Date of : 1950 ? Age: 68 ? Order #: [id number] ? Instrument Name: [id number] ? Procedure: ? Upper GI endoscopy Indications: ? Dyspepsia, Dysphagia Providers: ? Laura Lindo MD, Olga Sharif ? Pamela Valle, ? Marketing Communications Specialist Referring MD: ?Devi Amaya ? MD Shelley [...] reactions. The ? Endoscope was introduced thro [facility] the ? mouth, and advanced to the ird part ? of duodenum. The patient bradye rated ? the procedure well. The upper [...] ? - Follow-up with Ms. Granados and . ? Shelley. ? Attending Participation: ? I personally performed the entire procedure. ? L. Julio Lindo MD 03/02/2019 6:22:03 PM Number of Addenda: 0 Note Initiated On: 03/02/2019 5:47 PM Specimen (Source) Anatomical Collection Method Collection Time Re ceived Time Location / / Volume Laterality 03/02/2019 5:47 PM EDT Allison Granados PERFORMANCE ANALYST GENERAL SURGICAL ORDERABLES Performing Organization Address City/State/ZIP Code Phon e Number [employer] documented in this encounter Visit Diagnoses Not on filedocumented in this encounter Administered Medications Inactive Administered Medications - up to 3 most recent administrations Medication Order MAR Action Action Date Dose Rate Site fentaNYL 50 mcg/mL multi-dose Given 03/02/2019 6:03 PM EDT 25 mc g injection ONCE PRN, Starting on Fri03/02/19 at 1754, Until Fri03/02/19 at 2054, Intra-Operative (Intra-Procedure), Routine Given 03/02/2019 5:58 PM EDT 25 mcg Given 03/02/2019 5:54 PM EDT 50 mcg midazolam (PF) (VERSED) multi-dose injec tion Given 03/02/2019 6:03 PM EDT 1 mg ONCE PRN, Starting on Fri03/02/19 at 1754, Until Fri03/02/19 at 2054, Intra-Operative (Intra-Procedure), Routine Given 03/02/2019 5:58 PM EDT 1 mg Given 03/02/2019 5:54 PM EDT 1 mg documented in this encounter Active and Recently Administered Medications Times are shown in EDT. PRN Medication Order 02/28/2019 03/01/2019 03/02/2019 fentaNYL 50 mcg/mL multi-dose injection (CANCELED) 175 (Given - Provider: Olga Valle RN)1758 (Given - Provider: Olga Valle, RN)180 (Given - Provider: Olga Valle, RN) ONCE PRN, Starting Fri03/02/19 at 1754, Until Fri03/02/19 at 2054, Intra- Operative (Intra-Procedure), Routine midazolam (PF) (VERSED) multi-dose injection (CANCELED) 1753 (Given - Provider: Olga Valle, RN)1758 (Given - Provider: Olga Valle, RN)180 (Given - Provider: Olga Valle, RN) ONCE PRN, Starting Fri03/02/19 at 1754, Until Fri03/02/19 at 2054, Intra- Operative (Intra-Procedure), Routine documented in this encounter Care Teams Commissary Representative Relationship Specialty Start Date End Date Allison Granados, PERFORMANCE ANALYST PCP - General 04/22/14 06/27/[address] [facility] [address] ROD INTERNAL MED-[facility] [address] documented as of this encounter
--- OUTSIDE RECORDS SUMMARY | 2021-12-28 04:08 | XMS_ITS | Encounter Summary ---
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 INTERVENTIONIST Monie infection, esophageal; [address] [facility] Hiatal hernia; Highway DR Elevated TSH; [place] [address] GENERAL INTERNAL Low ferritin level; [phone] Thyroid nodule [place], [place] [address] (Wo rk) Social History Tobacco [...] Sign Reading Time Taken Comments Blood Pressure 130/74 03/25/2019 9:56 AM EDT Pulse 63 03/25/2019 9:56 AM EDT Temperature 36.6 ??C (97.8 ??F) 03/25/2019 9:51 AM EDT Respiratory Rate - - Oxygen Saturation 99% 03/25/2019 9:51 AM EDT Inhaled Oxygen Concentration - - Weight 57.4 kg (126 lb 9.6 oz) 03/25/2019 9:51 AM EDT Height 152.4 cm (5') 03/25/2019 9:51 AM EDT reported Body Mass Index 24.72 03/25/2019 9:51 AM EDT documented in this encounter Patient Instructions Patient InstructionsAllison Granados, SOILA - 03/25/2019 10:00 AM EDT Images from the original note were not included. Patient Education Hiatal Hernia: Care Instructions Your Care Instructions A hiatal hernia occurs when part of the stomach bulges into the chest cavity. A hiatal hernia may allow stomach acid and juices to back up into the esophagus (acid reflux). This can cause a feeling of burning, warmth, heat, or pain behind the breastbone. This feeling may often occur after you eat, soon after you lie down, or when you bend forward, and it may come and go. You also may have a sour taste in your mouth. These symptoms are commonly known as heartburn or reflux. Butnot all hiatal hernias cause symptoms. Follow-up care is a camacho part of your treatment and safety. Be sure to make and go to all appointments, and call your doctor if you are having problems. It's also a good idea to know your test results and keep a list of the medicines you take. How can you care for yourself at home? ?? Take your medicines exactly as prescribed. Call your doctor if you think you are having a problemwith your medicine. ?? Do not take aspirin or other nonsteroidal anti-inflammatory drugs (NSAIDs), such as ibuprofen (Advil, Motrin) or naproxen (Aleve), unless your doctor says it is okay. Ask your doctor what you can take for pain. ?? Your doctor may recommend cjwt-fww-cljehka medicine. For mild or occasional indigestion, antacidssuch as Tums, Gaviscon, Maalox, or Mylanta may help. Your doctor also may recommend lsyd-eko-jetyfmzledn reducers, such as famotidine (Pepcid AC), cimetidine (Tagamet HB), ranitidine (Zantac 75 and Zantac 150), or omeprazole (Prilosec). Read and follow all instructions on the label. If you use these medicines often, talk with your doctor. ?? Change your eating habits. ? It's best to eat several small meals instead of two or three large meals. ? After you eat, wait 2 to 3 hours before you lie down. Late-night snacks aren't a good idea. ? Chocolate, mint, and alcohol can make heartburn worse. They relax the valve between the esophagus and the stomach. ? Spicy foods, foods that have a lot of acid (like tomatoes and oranges), and coffee can make heartburn symptoms worse in some people. If your symptoms are worse after you eat a certain food, you may want to stop eating that food to see if your symptoms get better. ?? Do not smoke or chew tobacco. ?? If you get heartburn at night, raise the head of your bed 6 to 8 inches by putting the frame on blocks or placing a foam wedge under the head of your mattress. (Adding extra pillows does not work.) ?? Do not wear tight clothing around your middle. ?? Lose weight if you need to. Losing just 5 to 10 pounds can help. When should you call for help? Call your doctor now or seek immediate medical care if: ? You have new or worse belly pain. ? You are vomiting. ??Watch closely for changes in your health, and be sure to contact your doctor if: ? You have new or worse symptoms of indigestion. ? You have trouble or pain swallowing. ? You are losing weight. ? You do not get better as expected. Where can you learn more? Visit our health information library at [email or web address]. You can also view health information on [employer], your personal patient account. Log in or sign up today. Enter T074 in the search box to learn more about Hiatal Hernia: Care Instructions. Current as of: May 13, 2018 Content Version: 12.1 ?? 5034-1622 [employer]. Care instructions adapted under license by [facility]. If you have questions about a medical condition or this instruction, always ask your healthcare professional. [employer] disclaims any warranty or liability for your use of this information. documented in this encounter Progress Notes Allison Granados APRN - 03/25/2019 10:00 AM EDT PCP: Allison Granados APRN Chief Complaint Patient presents with ??? Other followup on her endoscopy ??? Abdominal Pain feels a tender bunch on right side ??? Cough just cannot get rid of it ??? Fatigue is not sleeping well, says indigestion wakes her up SUBJECTIVE: Elida Dinh is a 68 y.o. female who presents for ongoing asthma and cough an GERD symptoms. She would also like to review the results of her endoscopy report. She has been using inhalers and they have been helping the asthma. She is taking nexium for acid reflux but it is waking her at night. She has also had some ruq pain for awhile. She is s/p cholycestectomy. Pain to palpation of the area. - reviewed endoscopy report that showed polyp, hiatal hernia and biopsy showed esophageal monie. She does use advair and flonase. Review of Systems Constitutional: Positive for fatigue. Negative for chills and fever. Respiratory: Positive for cough and shortness of breath. Gastrointestinal: Positive for abdominal pain (RUQ). Negative for constipation, diarrhea, nausea andvomiting. Psychiatric/Behavioral: Positive for sleep disturbance. Allergies Allergen Reactions ??? Codeine Nausea And Vomiting ??? Unable To Find [Unclassified Drug] Seasonal Current Outpatient Medications Medication Sig Dispense Refill ??? fluticasone propionate (FLONASE) 50 mcg/actuation [place], Suspension 1 spray by Each Nare route [...] R79.89 ??? Gastroesophageal reflux K21.9 OBJECTIVE: Vitals: 03/25/19 0951 03/25/19 0956 BP: 141/67 130/74 BP Location (NBP): Right arm Right arm Patient Position: Sitting Sitting BP Cuff Sizes: Adult (25-34 cm) Adult (25-34 cm) Pulse: 66 63 Temp: 36.6 ??C (97.8 ??F) TempSrc: Oral SpO2: 99% Weight: 57.4 kg (126 lb 9.6 oz) Height: 152.4 cm (5') PHYSICAL EXAM: Physical [...] has no wheezes. She has no rales. Abdominal: Soft. Bowel sounds are normal. She exhibits mass (palpable liver). There is tenderness (RUQ). There is no rebound. No hernia. Lymphadenopathy: She has no cervical adenopathy. Neurological: She is alert and oriented to person, place, and time. Skin: Skin is warm and dry. Psychiatric: She has a normal mood and affect. ASSESSMENT & PLAN: Elida was seen today for other, abdominal pain, cough and fatigue. Diagnoses and all orders for this visit: RUQ pain - Comprehensive metabolic panel (non-fasting); Future - US Abdomen Limited; Future Monie infection, esophageal - will treat with nystatin givne RUQ tenderness. Do not want to start fluconazole unless lfts and u/s normal. If nystatin does not give improvement, then will change to fluconazole - nystatin (MYCOSTATIN) 100,000 unit/mL Suspension; Take 5 mLs by mouth 4 times daily. Swish and swallow. Continue for 48 hours after resolution symptoms or up to 7-14 days Hiatal hernia- discussed with patient, continue on nexium. Future Appointments Date Time Provider Department Center 04/15/2019 10:30 AM Devi Rosa MD [facility] GASTRO [facility] 05/21/2019 8:00 AM Allison Granados APRN [facility] documented in this encounter Miscellaneous Notes Addendum Note - Marlyn Rodrigues CCMA - 03/25/2019 10:00 AM EDT Addended by: MARLYN RODRIGUES on: 03/25/2019 10:50 AM Modules accepted: Orders documented in this encounter Plan of Treatment Not on filedocumented as of this encounter Procedures Procedure Name Priority Date/Time Associated Comments Diagnosis HC THYROID STIMULATING Routine 03/25/2019 11:11 Elevated TSH Results for this HORMONE, SERUM AM EDT Thyroid nodule procedure a re in the results section. COMPREHENSIVE Routine 03/25/2019 11:11 RUQ pain Results fo r this METABOLIC PANEL AM EDT procedure ar e in (NON-FASTING) the results [...] number below. Electronically signed by: Isaiah ramirez [facility] ([phone]), at 8:41 AM ? Isaiah Conn, Staff Physician Electronically Signed Final Report ?? 08:48 am Narrative 04/08/2019 8:49 AM EDT Abdominal ? (Signed Final 04/08/2019 08:48 am) PATIENT INFO: ID #: ? [id number] ?: ??[birth year] (68 yrs) Name: ? ELIDA DINH ?Visit Date: 04/08/2019 08:32 am PERFORMED BY: Performed By: ? Angel Lloyd RDMS Attending: ?Senia DARDEN, Eric Faust Referred By: ?ALLISON GRANADOS Location: ? [place] SERVICE(S) PROVIDED: ??UABDLIM - Abdominal Limited Survey Si ngmau ? [id number] ??Organ or Quadrant - [id number] INDICATIONS: ??ruq pain, palpable liver COMPARISON: Ultrasound: [...] 08:4 8 am) PATIENT INFO: ID #: [id number] : [birth year] (68 y rs) Name: ELIDA DINH Visit Date: 04/08 08:32 am PERFORMED BY: Performed By: Angel Lloyd RDMS Attending: Isaiah Conn MD Referred By: ALLISON GRANADOS Location: [place] SERVICE(S) PROVIDED: UABDLIM - Abdominal Limited Survey [place] [id number] Organ or Quadrant - [id number] INDICATIONS: ruq pain, palpable liver COMPARISON: Ultrasound: [...] number below. Electronically signed by: Isaiah ramirez [facility] ([phone]), at 8:41 AM Isaiah Conn, Staff Physician Electronically Signed Final Report 04/08 08:48 am Allison Granados APRN IMG US GEN ORDERABLES TSH (03/25/2019 11:11 AM EDT) athologist Signature TSH 1.66 0.27 - 4.20 DIXIE CORKY mcIU/mL [facility] Specimen Anatomical Collection Method Collection Time Receive d Time (Source) Location / / Volume Laterality Blood specimen 03/25/2019 11:11 9 (specimen) AM EDT 12:37 PM EDT Resulting Agency Comment Spec In Lab Allison Granados APRN CHEMISTRY ORDERABLES Performing Organization Address City/State/ZIP [place] [address] (ABNORMAL) Comprehensive metabolic panel (non-fasting) (03/25/2019 11:11 AM EDT) athologist Signature Glucose Lvl 101 65 - 199 [facility] Comment: Diabetes: >=200 mg/dL plus symp toms BUN 13 8 - 18 mg/dL [facility] Creatinine 0.69 (L) 0.70 - 1.20 mg/dL [facility] Sodium 143 135 - 145 mmol/L [facility] Potassium 4.4 3.5 - 5.0 mmol/L [facility] Comment: Please note: ??Patients with WBC >100,00 0 may have falsely elevated Potassium levels. ??For accurate Potassium quantif ication in these patients send serum separator tube (gold top) for subsequent determinations. ??Contact the Clinical Chemistry Laboratory if there are any qu estions. Chloride 106 98 - 107 mmol/L [facility] CO2 26 22 - 31 mmol/L [facility] Anion Gap 11 5 - 15 mmol/L [facility] Calcium 9.1 8.5 - 10.5 mg/dL [facility] Total Protein 6.8 6.1 - 8.0 gm/dL [facility] Albumin 4.1 3.2 - 5.2 gm/dL [facility] AST 19 0 - 30 unit/L [facility] ALT 21 0 - 30 unit/L [facility] Alk Phos 73 35 - 105 unit/L [facility] Total Bilirubin 0.5 0.2 - 1.3 mg/dL [facility] Estimated GFR 88 >=60 mL/min/1.73 m?? [facility] Comment: The eGFR was calculated using the CKD-EP I equation. As with all creatinine based estimates of kidney function, eGFR values calculated with the CKD-EPI equation are not accurate in patients wi th acute kidney failure, extremes of body mass or the acutely ill. http://TuManitas/DHnkf eGFR 102 >=60 mL/min/1.73 m?? [facility] Comment: The eGFR was calculated using the CKD-EP I equation. As with all creatinine based estimates of kidney function, eGFR values calculated with the CKD-EPI equation are not accurate in patients wi th acute kidney failure, extremes of body mass or the acutely ill. http://TuManitas/DHMCnkf Specimen Anatomical Collection Method Collection Time Receive d Time (Source) Location / / Volume Laterality Blood specimen 03/25/2019 11:11 9 (specimen) AM EDT 12:37 PM EDT Resulting Agency Comment Spec In Lab Allison Granados APRN CHEMISTRY ORDERABLES Performing Organization Address City/State/ZIP [place] [address] documented in this encounter Visit Diagnoses Diagnosis RUQ pain Abdominal pain, right upper quadrant Monie infection, esophageal Candidiasis of the esophagus Hiatal hernia Diaphragmatic hernia without mention of obstruction or gangrene Elevated TSH Other abnormal blood chemistry Low ferritin level Other nonspecific findings on examinatio n of blood Thyroid nodule Nontoxic uninodular goiter RUQ pain Abdominal pain, right upper quadrant documented in this encounter Care Teams Ice Hockey Coach Relationship Specialty Start Date End Date Allison Granados APRN PCP - General 04/22/14 06/27/21 [facility] [address] [place] [address] documented as of this encounter
--- OUTSIDE RECORDS SUMMARY | 2021-12-28 04:08 | XMS_ITS | Encounter Summary ---
:1950 Author Organization [facility] [place] [address] Care Team Providers Name Role Phone Allison Granados APRN Primary Care Provider Encounter Details Date Type Department Care Team Description 08/25/[address] [facility] Jarred Yo [facility] [place] [address] Social History Tobacco Use Types Packs/Day [...] this encounter Miscellaneous Notes Telephone Encounter - Jarred Yo RN - 08/25/2019 5:25 PM EST Laura pharmacist, from [facility] in [place], [place] calls the office leaving a message on the RN voicemail stating that [employer] will not cover Ranitidine after this fill so an alternative will need to be prescribed. Patient is currently taking two 150mg capsules twice daily. Forwarding to Dr. Rosa to review and prescribe. documented in this encounter Plan of Treatment Not on filedocumented as of this encounter Visit Diagnoses Not on filedocumented in this encounter Care Teams Trombone Slide Assembler Relationship Specialty Start Date End Date Allison Granados APRN PCP - General 04/22/14 06/27/[address] [facility] [address] [place] [address] documented as of this encounter
--- OUTSIDE RECORDS SUMMARY | 2021-12-28 04:08 | XMS_ITS | Encounter Summary ---
:1950 Author Organization [facility] Address [address] [place] [address] Care Team Providers Name Role Phone Allison Granados APRN Primary Care Provider [phone] Encounter Details Date Type Department Care Team Description 05/27/2019 Office Visit Internal Medicine Allison Granados Medic are annual wellness visit, subsequent (Primary Dx); at [facility] SOILA Rain Encounter for screening mammogram for br east cancer; [facility] Gastroesophage al reflux disease, esophagitis presence not specified; [facility] Elevated TSH; [place] [address] GENERAL INTERNAL Thyroid nodule; [phone] Low ferritin level [place], [place] [address] Social History Tobacco Use Types [...] Sign Reading Time Taken Comments Blood Pressure 121/67 05/27/2019 2:07 PM EST Pulse 66 05/27/2019 2:07 PM EST Temperature - - Respiratory Rate - - Oxygen Saturation 99% 05/27/2019 2:07 PM EST Inhaled Oxygen Concentration - - Weight 58 kg (127 lb 12.8 oz) 05/27/2019 2:07 PM EST Height 153.5 cm (5' 0.43) 05/27/2019 2:07 PM EST Body Mass Index 24.6 05/27/2019 2:07 PM EST documented in this encounter Progress Notes Allison Granados W, CREMATORY ATTENDANT - 05/27/2019 2:30 PM EST Subjective: Patient ID: Elida Montez is a 68 y.o. female presents today for annual wellness exam. Self assessment of Health Status: GERD- ongoing problem daily. She chest tightness assoc with GERD. She has had extensive cardiac workup in the past Memory- has been getting worse recently. She is forgetting to do things when she goes into a new room. RLS- meds help a lot IBS- well controlled Urinary leakage- she is on ditropan, but still needs pad for it Asthma- uses inhaler more than she used to. Hand arthritis- ongoing and getting somewhat worse. Other providers: Dr. Rosa (GI) Suppliers: none Memory issues (mini-cog score no concern): no Advanced directives: Has completed, needs to bring it in. Health Risk Assessment (HRA): (all responses reviewed including blank responses) Annual Wellness Visit Responses: myD-H Annual Wellness Visit Responses 05/27/2019 Health in general Good Quality of life Very Good Physical health Good Mental health Good Satisfaction with social activities Good Ability to carry out social activities Good Ability to carry out physical activities Completely Bothered by emotional problems Never Rate of fatigue Mild Rate of pain 0 -No Pain PROMIS-10 Physical Health Score 54.1 PROMIS-10 Mental Health Score 50.8 Hearing Loss Yes Activity - low level (Bathing, Dressing, Eating, Mobility, Using toilet, Grooming) I do not need anyhelp Activity - high level (Laundry, Housekeeping, Banking, Shopping, Use phone, Food Prep, Transportation, Taking meds) I do not need any help Fallen in last year Yes Difficulties with balance or walking No Injured [...] Risk) 10 mins of vigorous physical activity 4 days Time spent on vigorous physical activity 10 minutes 10 mins of moderate physical activity 7 days Time spent on moderate physical activity 20 minutes Eat Fruit 1 - 3 times per day Eat Vegetables 1 - 3 times per day Wear Seatbelt Always Tooth or Mouth Problems No Urinary Incontinence Yes Sexually active Yes Live Alone No School Some college or technical school Employment Status Other Hours per week - Combined Household Income $25,000 to less than $35,000 # People Supported 3 Who is taking survey I am (patient) Past/Family/Social History/Medications and Allergies reviewed and/or documented below. (If using opioids or at risk for OUD, the benefits of using other, non-opioid pain therapies was discussed.) Objective: BP 121/67 (BP Location (NBP): Left arm, Patient Position: Sitting, BP Cuff Sizes: Adult (25-34 cm)) Pulse 66 Ht 153.5 cm (5' 0.43) Wt 58 kg (127 lb 12.8 oz) SpO2 99% BMI 24.60 kg/m?? Patient reported measures: Pain:4 Physical Health:Good Fall: PHQ-9 QUESTIONNAIRE SCORE ONLY (AMB) 11/03/2017 PHQ - 9 Score (Clinic) 3 (Minimal Depression) Some recent data might be hidden Wt Readings from Last 3 Encounters: 05/27/19 58 kg (127 lb 12.8 oz) 04/15/19 57.3 kg (126 lb 6.4 oz) 03/25/19 57.4 kg (126 lb 9.6 oz) Hearing assessment (whisper test, rubbing fingers) Physical Exam Constitutional: She is oriented to person, place, and time. She appears well- developed and well-nourished. No distress. HENT: Head: Normocephalic and atraumatic. Right Ear: Tympanic membrane and external ear normal. Left Ear: Tympanic membrane and external ear normal. Mouth/Throat: Oropharynx is clear and moist and mucous membranes are normal. No oropharyngeal exudate. Eyes: Conjunctivae are normal. Right eye exhibits no discharge. Left eye exhibits no discharge. Neck: Neck supple. No thyromegaly present. Cardiovascular: Normal rate, regular rhythm and normal heart sounds. Exam reveals no friction rub. No murmur heard. Pulmonary/Chest: Effort normal. Abdominal: Soft. Bowel sounds are normal. She exhibits no distension and no mass. There is no tenderness. There is no rebound and no guarding. Musculoskeletal: Normal range of motion. Lymphadenopathy: She has no cervical adenopathy. Neurological: She is alert and oriented to person, place, and time. She displays normal reflexes. Nocranial nerve deficit. Skin: Skin is warm and dry. No rash noted. Psychiatric: She has a normal mood and affect. Her behavior is normal. Judgment and thought content normal. Vitals reviewed. Assessment and Plan: Assessment/Plan: Diagnoses and all orders for this visit: Medicare annual wellness visit, subsequent - flu vaccie today, will recheck labs. Discussed advance directives and mammogram Encounter for screening mammogram for breast cancer Gastroesophageal reflux disease, esophagitis presence not specified - baclofen (LIORESAL) 5 mg Tablet; Take 2 tablets by mouth 2 times daily (before meals). Elevated TSH - TSH; Future - TSH Thyroid nodule - TSH; Future - TSH Low ferritin level - Iron and TIBC; Future - CBC (with Diff); Future - Ferritin; Future - Ferritin - CBC (with Diff) - Iron and TIBC - Hemogram - Differential, Automated Other orders - FluAd Trivalent, Adjuvanted Vaccine,65+ - oxybutynin (DITROPAN-XL) 5 mg Tablet Extended Rel 24 hr; Take 2 tablets by mouth daily. Ms. Montez was seen today for exam. In conclusion, we discussed the followin. SCREENING SCHEDULE & IMMUNIZATIONS - Health Maintenance Topic Date Due ??? Breast Cancer Shared Decision Needed 1988 ??? Advance Directive 09/12/2003 ??? Zoster vaccine (2 of 3) 11/30/2012 ??? Influenza (Flu) vaccine (1 of 1 - Influenza standard series) 03/07/2019 ??? Breast Cancer screening 04/25/2019 ??? Colonoscopy 07/31/2028 ??? Tetanus vaccine 10/09/2028 ??? Pneumo vaccine (65+) Completed ??? Bone Density Scan Completed ??? Hepatitis C Screening Completed ??? Tdap adult Completed 2. RISK FACTORS (including any positives from HRA) and 3. PERSONALIZED HEALTH ADVICE - [x] A copy of the Risk Factors and Personalized Health Advice and Health Maintenance List was copiedto the patient's After Visit Summary. Meche Schmitz, JENI - 05/27/2019 2:30 PM EST Pt tolerated injection well. Comfort measure reviewed if arm aches later tonight or tomorrow. VIS provided. documented in this encounter Plan of Treatment Not on filedocumented as of this encounter Procedures Procedure Name Priority Date/Time Associated Comments Diagnosis HEMOGRAM Routine 05/27/2019 3:21 PM Low ferritin level Res ults for this EST procedure are i n the results section. DIFFERENTIAL, Routine 05/27/2019 3:21 PM Low ferritin level Re sults for this AUTOMATED EST procedure are i n the results section. HC IRON BINDING Routine 05/27/2019 3:21 PM Low ferritin level Results for this CAPACITY EST procedure are i n the results section. HC CBC,PLT & AUTO Routine 05/27/2019 3:21 PM Low ferritin leve l DIFF EST HC THYROID Routine 05/27/2019 3:21 PM Elevated TSH Results for this STIMULATING HORMONE, EST Thyroid nodule proce dure are in SERUM the results section. HC FERRITIN, SERUM Routine 05/27/2019 3:21 PM Low ferritin lev el Results for this EST procedure are i n the results section. documented in this encounter Results (ABNORMAL) Differential, Automated (05/27/2019 3:21 PM EST) Patholo gist Method Time Signature Neutrophils % 48.7 % [facility] Neutr Abs (ANC) 3.89 1.70 - [facility] 6.10 [facility] x10(3)/[facility] LABORATORY Lymphocytes % 28.9 % [facility] Lymphocytes Abs 2.3 0.9 - 3.2 [facility] x10(3)/[facility] LABORATORY Monocytes % 15.2 % [facility] Monocyte Abs 1.2 (H) 0.3 - 0.9 [facility] x10(3)/[facility] LABORATORY Eosinophils % 5.0 % [facility] Eosinophils Abs 0.4 0.0 - 0.4 [facility] x10(3)/[facility] LABORATORY Basophils % 1.4 % [facility] Basophils Abs 0.1 0.0 - 0.1 [facility] x10(3)/[facility] LABORATORY Immature Gran % 0.80 % [facility] Comment: Immature granulocytes(IG's)percentage an d absolute count will include metamyelocytes, myelocytes, and promyelo cytes. Blood smears from CBCs yielding IG's will be scanned manually for concor dance. If this scan disagrees with the automated IG or if promyelocytes are not ed, a manual differential will be performed. Zena Gran Abs 0.06 (H) 0.00 - 0.04 x10(3)/[facility] LABORATORY Specimen Anatomical Collection Method Collection Time Receive d Time (Source) Location / / Volume Laterality Blood specimen 05/27/2019 3:21 PM 019 6:48 (specimen) EST PM EST Resulting Agency Comment Spec In Lab Allison Granados APRN HEMATOLOGY ORDERABLES Performing Organization Address City/State/[place] [address] Hemogram (05/27/2019 3:21 PM EST) P athologist Signature WBC 8.0 4.0 - 9.5 [facility] x10(3)/[facility] LABORATORY RBC 4.80 4.00 - [facility] 5.21 [facility] x10(6)/[facility] LABORATORY Hemoglobin 14.2 11.7 - DIXIE CORKY 15.5 gm/dL [facility] Hematocrit 43.3 35.7 - D[place]IE SHARPCORKY 45.8 % [facility] MCV 90.2 82.6 - [facility] 94.4 [facility] LABORATORY MCH 29.6 27.1 - [place] SHARPCORKY 32.0 pg [facility] MCHC 32.8 31.7 - [place] CORKY 35.0 gm/dL [facility] Platelets 288 145 - 357 [facility] x10(3)/[facility] LABORATORY RDWSD 41.5 37.0 - [place] CORKY 46.0 [facility] LABORATORY RDWCV 12.5 11.5 - [facility] 14.1 % [facility] MPV 10.6 7.6 - 12.9 [facility] LABORATORY nRBC % Auto 0.0 % [facility] nRBC Abs Auto 0.000 0.000 - [place] CORKY 0.000 [facility] x10(3)/[facility] LABORATORY Specimen Anatomical Collection Method Collection Time Receive d Time (Source) Location / / Volume Laterality Blood specimen 05/27/2019 3:21 PM 019 6:48 (specimen) EST PM EST Resulting Agency Comment Spec In Lab Allison Granados APRN HEMATOLOGY ORDERABLES Performing Organization Address City/[facility]/ZIP Code Phon e Number [address] TSH (05/27/2019 3:21 PM EST) P athologist Signature TSH 2.40 0.27 - 4.20 DIXIE CORKY mcIU/mL [facility] Specimen Anatomical Collection Method Collection Time Receive d Time (Source) Location / / Volume Laterality Blood specimen 05/27/2019 3:21 PM 019 6:55 (specimen) EST PM EST Resulting Agency Comment Spec In Lab Allison Granados APRN CHEMISTRY ORDERABLES Performing Organization Address City/[facility]/[place] [address] Ferritin (05/27/2019 3:21 PM EST) athologist Signature Ferritin 211 30 - 400 DIXIE CORKY ng/mL [facility] Comment: Pediatric reference ranges not verified at [facility], interpret with caution. Reference ranges for females greater celine n 50 years of age approach values for men, i.e., 30-400 ng/mL. Specimen Anatomical Collection Method Collection Time Receive d Time (Source) Location / / Volume Laterality Blood specimen 05/27/2019 3:21 PM 019 6:56 (specimen) EST PM EST Resulting Agency Comment Spec In Lab Allison Granados APRN CHEMISTRY ORDERABLES Performing Organization Address City/State/ZIP Code Phon e Number [address] Iron and TIBC (05/27/2019 3:21 PM EST) athologist Signature Iron 85 30 - 150 [facility] mcg/dL [facility] TIBC 285 250 - 450 [facility] mcg/dL [facility] Iron Saturation 30 20 - 50 % [facility] Specimen Anatomical Collection Method Collection Time Receive d Time (Source) Location / / Volume Laterality Blood specimen 05/27/2019 3:21 PM 019 6:55 (specimen) EST PM EST Resulting Agency Comment Spec In Lab Allison Granados APRN CHEMISTRY ORDERABLES Performing Organization Address City/State/[place] [address] documented in this encounter Visit Diagnoses Diagnosis Medicare annual wellness visit, subseque nt - Primary Routine general medical examination at a health care facility Encounter for screening mammogram for br east cancer Gastroesophageal reflux disease, esophag itis presence not specified Elevated TSH Other abnormal blood chemistry Thyroid nodule Nontoxic uninodular goiter Low ferritin level Other nonspecific findings on examinatio n of blood documented in this encounter Care Teams Breast Buffer Relationship Specialty Start Date End Date Allison Granados APRN PCP - General 04/22/14 06/27/[address] [facility] [address] [place]OD [place] [address] documented as of this encounter
--- OUTSIDE RECORDS SUMMARY | 2021-12-28 04:08 | XMS_ITS | Encounter Summary ---
:1950 Author Organization [facility] [place] [address] Care Team Providers Name Role Phone Kerwin Pineda Primary Care Provider Reason for Visit Reason Comments Medication Refill Encounter Details Date Type Department Care Team Description 10/12/2018 Refill Internal Medicine at [facility] shannon, Allison W, OFFICE BOOKKEEPER [facility] Gutierrez [facility] [place] [address] RD [phone] [place], [place] [address] (Wo rk) Social History Tobacco [...] on filedocumented in this encounter Care Teams Pickers Material Handlers Relationship Specialty Start Date End Date Kerwin Pineda PA PCP - General Internal Medicine 06/28/21 [facility] [place] [address] documented as of this encounter
--- OUTSIDE RECORDS SUMMARY | 2021-12-28 04:09 | XMS_ITS | Encounter Summary ---
:1950 Author Organization [facility] Address [facility] [place] [address] Care Team Providers Name Role Phone Allison Granados APRN Primary Care Provider [phone] Reason for Visit Reason Comments Nail Problem just got really bad last nig ht. sore to walk, to the touch, did not sleep last night. Swollen. p ainful on the lateral side of big toe along with redness Encounter Details Date Type Department Care Team Description 11/03/2017 Office Visit Internal Medicine at Mikaela Lucia [facility] MD Tariq toe, left [facility] [address] [place] INTERNAL MEDICIN [place] [address] [place] [address] [phone] (Wo rk) Social History Tobacco Use Types [...] Sign Reading Time Taken Comments Blood Pressure 116/65 11/03/2017 11:16 AM EDT Pulse 70 11/03/2017 11:16 AM EDT Temperature 36.9 ??C (98.5 ??F) 11/03/2017 11:16 AM EDT Respiratory Rate 16 11/03/2017 11:16 AM EDT Oxygen Saturation 100% 11/03/2017 11:16 AM EDT Inhaled Oxygen Concentration - - Weight 51.7 kg (114 lb) 11/03/2017 11:16 AM EDT Height 155 cm (5' 1.02) 11/03/2017 11:16 AM EDT Body Mass Index 21.52 11/03/2017 11:16 AM EDT documented in this encounter Progress Notes Liseth Diaz MD - 11/03/2017 11:00 AM EDT The case was discussed at the time of the visit or immediately after the visit. The assessment and plan were formulated in discussion with me and I agree with them as documented. I have reviewed the history, physical exam, assessment and plan with the resident. Major issues discussed today: Left great toe pain, started yesterday, while walking, then noted redness and swelling when she walks Had clipped toenails a week ago Soaked in epsom salts PE left great toe erythema along the proximal aspect of the nail, not involving the joint, streakingseveral inches proximally, exquisitly tender Plan: Warm soaks, given streaking will treat with cephalexin 500 mg tid x 7 days I have seen and examined the patient and agree with the treatment plan Mikaela Lucia MD - 11/03/2017 11:00 AM EDT Subjective: Patient ID: Elida Montez is a 67 y.o. female. Chief Complaint: Toe Pain HPI: # Left Great Toe Pain: She complains of erythema and swelling of her left big toe that started yesterday evening. She started to notice some pain when she was walking around at work. She got home from work last night and she took off her shoes and noticed erythema and swelling of the left big toe. Shelast clipped her toenails 1 week ago. She has never had anything like this before. She has never hada hx of ingrown toenails. She soaked it last night in Epson Salts. She claims this did not help. Shehas not taken any oral pain medications as she has a gastric PH test later this week. She is not a smoker and is not diabetic. Review of Systems Constitutional: Negative for fatigue and fever. Cardiovascular: Negative for chest pain and leg swelling. Skin: Erythema and swelling of left big toe Neurological: Negative for weakness. Psychiatric/Behavioral: Negative for agitation. Objective: Visit Vitals ??? BP 116/65 (BP Location (NBP): Left arm, Patient Position: Sitting, BP Cuff Sizes: Adult (25-34 cm)) ??? Pulse 70 ??? Temp 36.9 ??C (98.5 ??F) (Oral) ??? Resp 16 ??? Ht 155 cm (5' 1.02) ??? Wt 51.7 kg (114 lb) ??? SpO2 100% ??? BMI 21.52 kg/m2 BP Readings from Last 3 Encounters: 11/03/17 116/65 08/19/17 113/60 08/15/17 114/64 Wt Readings from Last 3 Encounters: 11/03/17 51.7 kg (114 lb) 08/19/17 51 kg (112 lb 6.4 oz) 08/15/17 50.3 kg (111 lb) Medications 11/03/17 1116 Medication Sig Taking? fluticasone-salmeterol (ADVAIR DISKUS) 250-50 mcg/dose Disk with Device Inhale 1 puff into the lungs2 times daily. Yes UNABLE TO FIND Over the counter, Simethicone 125mg. antigas softgels PRN Yes oxybutynin (DITROPAN-XL) 5 mg Tablet Extended Rel 24 hr Take 1 tablet by mouth daily. Yes ferrous sulfate 325 mg (65 mg iron) Tablet, Delayed Release (E.C.) Take 1 tablet by mouth daily. Yes rOPINIRole (REQUIP) 0.5 mg Tablet Take 4 tablets by mouth nightly. Yes triamcinolone (KENALOG) 0.1 % Ointment Apply scant amount topically to affected area daily until symptoms resolve. Then decrease to every other day, then 1-2 times/ week. Yes FLUoxetine (PROZAC) 20 mg Tablet Take 1 tablet by mouth daily. Yes albuterol (PROVENTIL HFA;VENTOLIN HFA;PROAIR) 90 mcg/actuation HFA Aerosol Inhaler Inhale 2 puffs into the lungs as needed. Use with spacer Yes ibandronate (BONIVA) 150 mg Tablet Take 1 tablet by mouth every 30 days. Take in AM with full glass of water, on an empty stomach. Do not lie down for 30 min. Yes clobetasol (TEMOVATE) 0.05 % Ointment Apply scant amount topically to vulva daily as instructed until next appointment in 6-8 weeks. Yes ranitidine (ZANTAC) 150 mg Capsule Take 1 capsule by mouth 2 times daily. Take before dinner every night. Patient not taking: Reported on 11/03/2017 esomeprazole (NEXIUM) 40 mg Capsule, Delayed Release(E.C.) Take 1 capsule by mouth 2 times daily (before meals). Patient not taking: Reported on 11/03/2017 Physical Exam Constitutional: She is oriented to person, place, and time. She appears well- developed and well-nourished. HENT: Head: Normocephalic and atraumatic. Eyes: No scleral icterus. Pulmonary/Chest: Effort normal. Neurological: She is alert and oriented to person, place, and time. No cranial nerve deficit. Skin: Skin is warm. There is erythema. Left toe erythema and swelling beneath the line of the nail, somewhat fluctuant with a several cm streak spreading proximally Assessment and Plan: #Peronychia of Left Big Toe: Swelling that is evidence of an underlying abscess with a streak of erythema that is spreading proximally up the toe, towards her foot, there is concern that this is a spreading infection. -Keflex for 7 days -Continue soaking the foot with Epson salts in warm water -Continue to wear loose fitting shoes -Patient knows to call if her symptoms worsen or persist or if she were to develop any systemic signs/symptoms of an infection (ie fevers, chills, etc) documented in this encounter Plan of Treatment Not on filedocumented as of this encounter Visit Diagnoses Diagnosis Paronychia of great toe, left Onychia and paronychia of toe documented in this encounter Care Teams Seamer Operator Relationship Specialty Start Date End Date Allison Granados APRN PCP - General 04/22/14 06/27/21 [facility] [address] [place] [address] documented as of this encounter
--- OUTSIDE RECORDS SUMMARY | 2021-12-28 04:09 | XMS_ITS | Encounter Summary ---
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 [address] [facility] [address] [place] [address] [address] [phone] [place] [address] (Wo rk) Social History Tobacco Use Types [...] Sign Reading Time Taken Comments Blood Pressure 113/60 08/19/2017 10:20 AM EST Pulse 60 08/19/2017 10:20 AM EST Temperature 36.9 ??C (98.5 ??F) 08/19/2017 10:20 AM EST Respiratory Rate - - Oxygen Saturation 99% 08/19/2017 10:20 AM EST Inhaled Oxygen Concentration - - Weight 51 kg (112 lb 6.4 oz) 08/19/2017 10:20 AM EST Height 152.4 cm (5') 08/19/2017 10:20 AM EST reported Body Mass Index 21.95 08/19/2017 10:20 AM EST documented in this encounter Patient Instructions Patient InstructionsLaAllison jackson APRN - 08/19/2017 10:20 AM EST Thank you for visiting the [facility] today. Here's a summary of what we discussed : - Apply the triamcinolone cream to the affected genital area daily for about 2 weeks, and then decrease to twice a week for a couple of weeks. May try to decrease to weekly. If symptoms return, then can increase back to twice a week. You may continue to use the vaseline as needed. - for the back pain, I recommend stretching, heating pad for about 15 minutes at a time and tylenol or ibuprofen for the pain and discomfort. documented in this encounter Progress Notes Allison Hector APRN - 08/19/2017 10:20 AM EST PCP: Allison Hector APRN Chief Complaint Patient presents with ??? Back Pain low back pain for a week ??? Dysuria for a week ??? Other says vagina is very red and sore SUBJECTIVE: Elida Dinh is a 66 y.o. female who presents for back pain and pain with urination. She has someredness and vaginal irritation as well. She reports that the pain has been ongoing for about a week.She denies doing anything to her back. She reports that if she is lying in bed and trying to turn itis very painful. Vagina redness and irritation that started about a week ago. She reports that she has not been usingthe steroid, but has been using the vaseline, but it only helps for a short period of time. Review of Systems Constitutional: Positive for fever (low grade). Gastrointestinal: Negative for nausea. Allergies Allergen Reactions ??? Codeine Nausea And Vomiting Current Outpatient Prescriptions Medication Sig Dispense Refill ??? UNABLE TO FIND Over the counter, Simethicone 125mg. antigas softgels PRN ??? oxybutynin (DITROPAN-XL) 5 mg Tablet Extended Rel 24 hr Take 1 tablet by mouth daily. 90 tablet 3 ??? ferrous sulfate 325 mg (65 mg iron) Tablet, Delayed Release (E.C.) Take 1 tablet by mouth daily.90 tablet 3 ??? ranitidine (ZANTAC) 150 mg Capsule Take 1 capsule by mouth 2 times daily. Take before dinner every night. 180 capsule 3 ??? rOPINIRole (REQUIP) 0.5 mg Tablet Take 4 tablets by mouth nightly. 360 tablet 3 ??? esomeprazole (NEXIUM) 40 mg Capsule, Delayed Release(E.C.) Take 1 capsule by mouth 2 times daily(before meals). 60 capsule 12 ??? triamcinolone (KENALOG) 0.1 % Ointment Apply scant amount topically to affected area daily untilsymptoms resolve. Then decrease to every other day, then 1-2 times/ week. 15 g 0 ??? FLUoxetine (PROZAC) 20 mg Tablet Take 1 tablet by mouth daily. 90 tablet 3 ??? albuterol (PROVENTIL HFA;VENTOLIN HFA;PROAIR) 90 mcg/actuation HFA Aerosol Inhaler Inhale 2 puffs into the lungs as needed. Use with spacer 1 Inhaler 3 ??? ibandronate (BONIVA) 150 mg Tablet Take 1 tablet by mouth every 30 days. Take in AM with full glass of water, on an empty stomach. Do not lie down for 30 min. 1 tablet 12 ??? fluticasone-salmeterol (ADVAIR DISKUS) 250-50 mcg/dose Disk with Device Inhale 1 puff into the lungs 2 times daily. 3 Inhaler 3 ??? clobetasol (TEMOVATE) 0.05 % Ointment [...] ??? Pain in limb (LEG) M79.609 ??? Osteopenia M85.80 ??? Restless leg syndrome G25.81 ??? Low ferritin level R79.0 ??? IBS (irritable bowel syndrome) K58.9 ??? Urinary frequency R35.0 ??? Elevated TSH R94.6 ??? Gastroesophageal reflux K21.9 OBJECTIVE: Vitals: 08/19/17 1020 BP: 113/60 BP Location (NBP): Left arm Patient Position: Sitting BP Cuff Sizes: Adult (25-34 cm) Pulse: 60 Temp: 36.9 ??C (98.5 ??F) TempSrc: Oral SpO2: 99% Weight: 51 kg (112 lb 6.4 oz) Height: 152.4 cm (5') PHYSICAL EXAM: Physical Exam Constitutional: She is oriented to person, place, and time. She appears well- developed and well-nourished. HENT: Head: Normocephalic and atraumatic. Eyes: Conjunctivae are normal. No scleral icterus. Pulmonary/Chest: Effort normal. Genitourinary: Genitourinary Comments: [place] discoloration of vaginal opening. Neurological: She is alert and oriented to person, place, and time. Skin: Skin is warm and dry. Psychiatric: She has a normal mood and affect. Her behavior is normal. Judgment and thought content normal. ASSESSMENT & PLAN: Elida was seen today for back pain, dysuria and other. Diagnoses and all orders for this visit: Vulvar itching - discoloration, itching and discomfort. 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 Will have her restart the steroid cream to see if it will give her relief. Discussed that she may need to use 1-2 times a week to keep from reoccurrence of symptoms. Patient Instructions Thank you for visiting the [facility] today. Here's a summary of what we discussed : - Apply the triamcinolone cream to the affected genital area daily for about 2 weeks, and then decrease to twice a week for a couple of weeks. May try to decrease to weekly. If symptoms return, then can increase back to twice a week. You may continue to use the vaseline as needed. - for the back pain, I recommend stretching, heating pad for about 15 minutes at a time and tylenol or ibuprofen for the pain and discomfort. Dysuria - POCT urine dipstick; Future - POCT urine dipstick Thyroid nodule - US Thyroid Soft Tissue; Future documented in this encounter Plan of Treatment Not on filedocumented as of this encounter Procedures Procedure Name Priority Date/Time Associated Diagnosis Comme nts POCT URINE DIPSTICK Routine 08/19/2017 10:15 AM Dysuria R esults for this EST procedure are i n the results section. documented in this encounter Results US Thyroid Soft Tissue (08/20/2017 2:04 PM EST) Anatomical Region Laterality Modality Pelvis Ultrasound Specimen (Source) Anatomical Collection Method Collection Time Re ceived Time Location / / Volume Laterality 08/20/2017 1:58 PM EST Impressions 08/20/2017 2:50 PM EST ??Multinodular thyroid gland.Using the TiRADS ACR Criteria the following nodules were enrike luated:RIGHT LOBE:Nodule Number: 1Site: Medial mid l obeTiRADS: 3, greatest dimension 0.7 cm.Subtle par tially exophytic 6 mm nodule off the lateral mid right t hyroid glandcorresponds to that seen previousl y which measured a maximum of 11 mm. This hasde creased in size. This is a solid well-defined isoe choic nodule withoutcalcification. TiRads3.LEFT LOBE :Nodule Number: 1Site: Mid left lobeTiRADS: TR2 : Not suspicious. RECOMMENDATION: No FNA, stable.Nodule Number: 2Site: InferiorTi RADS: 4 though greatest dimension is 0.5 cm, stable.Mu lti nodular thyroid gland with stable nodules bilat erally that do not meet ACRcriteria for recommended follow -up based on size and/or imaging characteristics.Nev ertheless, follow to ensure stability in one to 2 years time may be helpful. TR1 Score (0 points)- Benign (N o FNA)TR2 Score (2 points)- Not suspicious (No FN A)TR3 Score (3 points)- Mildly suspicious (FNA if g reater than 2.5cm, Follow ifgreater than 1.5cm)TR4 Score (4-6 points)- Moderately suspicious (FNA if greater than 1.5cm, Followif greater than 1.0cm)TR5 Score (7 points or more)- Highly suspicious (FNA is gre ater than 1.0cm,Follow if greater than 0.5cm)Foll ow up ultrasound recommendations assuming no growth are as follows:TR3: At 1, 3 and 5 yearsTR4: At 1,2,3 and 5 yearsTR5: At 1,2,3,4,5 yearsImaging can stop at 5 years if there is no change in size, as stability overthat time span reliably indicates that a nod ule has a benign behaviorBiopsy of no more than 2 nodule s with the most suspicious criteria isrecommended (not necessarily the largest)Source: Journal of [employer] 2017;14:587-595.I hav e personally reviewed the image(s) and the residents interpretation andagree with the findings, Lyn Gamble at 08/20/2017 2:41 PM ?Lyn noel MD Electronically Signed Final Report ?? 02:49 pm Narrative 08/20/2017 2:50 PM EST Thyroid ? (Signed Final 08/20/2017 02:49 pm) PATIENT INFO: ID #: ? [id number] ?: ??[birth year] (66 yrs) Name: ? ELIDA DINH ?Visit Date: 08/20/2017 01:58 pm PERFORMED BY: Performed By: ? Gregory Madden RDMS Attending: ?Tye DARDEN, Lyn Sharif Resident: ? Mikayla DARDEN, Smita Referred By: ?ALLISON HECTOR Location: ? [facility] SERVICE(S) PROVIDED: ??UTHYRD - Thyroid - [id number] ?[id number] INDICATIONS: ??monitor thyroid nodule COMPARISON: Previous ultrasound : 06/10/16. RIGHT LOBE: ??Date ? L(cm) ?AP(cm) ?TV(cm) ??08/20/17 ? 3.7 ?1.5 ? 1.5 ??12/05/16 ? 3.5 ?1.7 ? 1.8 -------- Lesions: -------- ??# ?Date ?Location ?Description ??1 ?18 ?Mid Lobe ?Solid or almost completely ? solid (2) Hyperechoic or ? isoechoic (1) Wider-than- ? tall (0) Smooth (0 points) ? None or large comet tail ? artifacts (0) ??1 ?12/05/16 ?Mid Lobe ?Iso- to hypoechoic, well ? circumscribed, peripheral ? vascularity ??2 ?06/10/16 ?Upper pole ?Hypoechoic, solid, non ? vascular, no ca++ -------- Lesions: -------- ??# ?? Date ? L(cm) ? AP(cm) ?TV(cm) ?Vol(ml) ?? % Chg ??1 ?? 08/20/17 ?? 0.7 ? 0.6 ? 0.6 ? 0.1 ??1 ?? 06/10/16 ?? 0.5 ? 0.5 ? 0.6 ??2 ?? 06/10/16 ?? 1.1 ? 0.8 ? 0.8 Comment: ?Heterogeneous LEFT LOBE: ??Date ? L(cm) ?AP(cm) ?TV(cm) ??08/20/17 ? 3.6 ?1.8 ? 1.5 ??06/10/16 ? 3.1 ?1.9 ? 1.5 -------- Lesions: -------- ??# ?Date ?Location ?Description ??1 ?02/14/18 ?Mid Lobe ?Mixed cystic and solid (1) ? Hyperechoic or isoechoic ? (1) Ebhcr-ekms-tyhu (0) ? Smooth (0 points) None or ? large comet tail artifacts (0) ??1 ?12/05/16 ?Mid Lobe ?Well-circumscribed, solid ? with cystic components, ? peripheral vascularity ??2 ?02/14/18 ?Mid Lobe ?Solid or almost completely ? solid (2) Very hypoechoic ? (3) Bznbz-ocww-cfnt (0) ? Smooth (0 points) None or ? large comet tail artifacts (0) ??2 ?06/10/16 ?Lower Lobe ?Sponge like, vascular ??3 ?06/10/16 ?Lower Lobe ?Hypoechoic -------- Lesions: -------- ??# ?? Date ? L(cm) ? AP(cm) ?TV(cm) ?Vol(ml) ?? % Chg ??1 ?? 08/20/17 ?? 1.4 ? 1.1 ? 1.1 ? 0.9 ??1 ?? 06/10/16 ?? 1.4 ? 1.0 ? 1.5 ??2 ?? 08/20/17 ?? 0.5 ? 0.4 ? 0.4 ??2 ?? 06/10/16 ?? 0.5 ? 0.3 ? 0.4 ??3 ?? 06/10/16 ?? 0.5 ? 0.3 ? 0.6 Comment: ?Heterogeneous -------- ISTHMUS: -------- Measurement: ?0.3 ??cm Comment: ?Normal texture LYMPH NODES: Several small lymph nodes are noted adj acent and slightly posterior to the left lobes of the thyr oid. Procedure Note Lyn Gamble MD - 08/20/2017 Thyroid (Signed Final 08/20/2017 02:49 pm) PATIENT INFO: ID #: [id number] : [birth year] (66 y rs) Name: ELIDA DINH Visit Date: 08/20 01:58 pm PERFORMED BY: Performed By: Miriam Madden RDMS Attending: Lyn Gamble MD Resident: Smita Degroot MD Referred By: ALLISON HECTOR Location: [facility] SERVICE(S) PROVIDED: UTHYRD - Thyroid - [id number] INDICATIONS: monitor thyroid nodule COMPARISON: Previous ultrasound : 06/10/16. RIGHT LOBE: Date L(cm) AP(cm) TV(cm) 08/20/17 3.7 1.5 1.5 06/10/16 3.5 1.7 1.8 -------- Lesions: -------- # Date Location Description 1 08/20/17 Mid Lobe Solid or almost com pletely solid (2) Hyperechoic or isoechoic (1) Wider-than- tall (0) Smooth (0 points) None or large comet tail artifacts (0) 1 06/10/16 Mid Lobe Iso- to hypoechoic, well circumscribed, peripheral vascularity 2 06/10/16 Upper pole Hypoechoic, solid , non vascular, no ca++ -------- Lesions: -------- # Date L(cm) AP(cm) TV(cm) Vol(ml) % Ch g 1 08/20/17 0.7 0.6 0.6 0.1 1 06/10/16 0.5 0.5 0.6 2 06/10/16 1.1 0.8 0.8 Comment: Heterogeneous LEFT LOBE: Date L(cm) AP(cm) TV(cm) 08/20/17 3.6 1.8 1.5 06/10/16 3.1 1.9 1.5 -------- Lesions: -------- # Date Location Description 1 08/20/17 Mid Lobe Mixed cystic and so lid (1) Hyperechoic or isoechoic (1) Xmfvr-gmaj-vpqx (0) Smooth (0 points) None or large comet tail artifacts (0) 1 06/10/16 Mid Lobe Well-circumscribed, solid with cystic components, peripheral vascularity 2 08/20/17 Mid Lobe Solid or almost com pletely solid (2) Very hypoechoic (3) Zzphq-mkvy-dgnv (0) Smooth (0 points) None or large comet tail artifacts (0) 2 06/10/16 Lower Lobe Sponge like, vasc ular 3 06/10/16 Lower Lobe Hypoechoic -------- Lesions: -------- # Date L(cm) AP(cm) TV(cm) Vol(ml) % Ch g 1 08/20/17 1.4 1.1 1.1 0.9 1 06/10/16 1.4 1.0 1.5 2 08/20/17 0.5 0.4 0.4 2 06/10/16 0.5 0.3 0.4 3 06/10/16 0.5 0.3 0.6 Comment: Heterogeneous -------- ISTHMUS: -------- Measurement: 0.3 cm Comment: Normal texture LYMPH NODES: Several small lymph nodes are noted adj acent and slightly posterior to the left lobes of the thyr oid. IMPRESSION Multinodular thyroid gland.Using the Ti RADS ACR Criteria the following nodules were enrike luated:RIGHT LOBE:Nodule Number: 1Site: Medial mid l obeTiRADS: 3, greatest dimension 0.7 cm.Subtle par tially exophytic 6 mm nodule off the lateral mid right t hyroid glandcorresponds to that seen previousl y which measured a maximum of 11 mm. This hasde creased in size. This is a solid well-defined isoe choic nodule withoutcalcification. TiRads3.LEFT LOBE :Nodule Number: 1Site: Mid left lobeTiRADS: TR2 : Not suspicious. RECOMMENDATION: No FNA, stable.Nodule Number: 2Site: InferiorTi RADS: 4 though greatest dimension is 0.5 cm, stable.Mu lti nodular thyroid gland with stable nodules bilat erally that do not meet ACRcriteria for recommended follow -up based on size and/or imaging characteristics.Nev ertheless, follow to ensure stability in one to 2 years time may be helpful. TR1 Score (0 points)- Benign (N o FNA)TR2 Score (2 points)- Not suspicious (No FN A)TR3 Score (3 points)- Mildly suspicious (FNA if g reater than 2.5cm, Follow ifgreater than 1.5cm)TR4 Score (4-6 points)- Moderately suspicious (FNA if greater than 1.5cm, Followif greater than 1.0cm)TR5 Score (7 points or more)- Highly suspicious (FNA is gre ater than 1.0cm,Follow if greater than 0.5cm)Foll ow up ultrasound recommendations assuming no growth are as follows:TR3: At 1, 3 and 5 yearsTR4: At 1,2,3 and 5 yearsTR5: At 1,2,3,4,5 yearsImaging can stop at 5 years if there is no change in size, as stability overthat time span reliably indicates that a nod ule has a benign behaviorBiopsy of no more than 2 nodule s with the most suspicious criteria isrecommended (not necessarily the largest)Source: Journal of [employer] 2017;14:587-595.I hav e personally reviewed the image(s) and the residents interpretation andagree with the findings, Lyn Gamble at 08/20/2017 2:41 PM Lyn Gamble MD Electronically Signed Final Report 08/20 02:49 pm Allison Hector APRN IMG US GEN ORDERABLES POCT urine dipstick (08/19/2017 10:15 AM EST) P athologist Signature POC Sp [place] 1.005 1.002 - 1.030 POC pH, UA 7 5.0 - 8.5 POC Leuk, UA neg Negative - Negative POC Nitrite, neg Negative - UA Negative POC Protein, trace Negative - UA Negative mg/dL POC Glucose, norm Normal - UA Normal mg/dL POC Ketone, UA neg Negative - Negative POC Urobil, UA norm 0.2 - 1.0 mg/dL POC Bili, UA neg Negative - Negative POC Blood, UA neg Negative - Negative aaron/uL Specimen (Source) Anatomical Collection Method Collection Time Re ceived Time Location / / Volume Laterality 08/19/2017 10:15 AM EST Allison Hector APRN POINT OF CARE TEST ORDERABLE S documented in this encounter Visit Diagnoses Diagnosis Dysuria Thyroid nodule Nontoxic uninodular goiter Thyroid nodule Nontoxic uninodular goiter documented in this encounter Care Teams Asp Net Mvc Developer Relationship Specialty Start Date End Date Allison Hector APRN PCP - General 04/22/14 06/27/21 [facility] [address] [place] [address] documented as of this encounter
--- OUTSIDE RECORDS SUMMARY | 2021-12-28 04:09 | XMS_ITS | Encounter Summary ---
:1950 Author Organization [facility] [place] [address] Care Team Providers Name Role Phone Allison Hector APRN Primary Care Provider [phone] Reason for Visit Reason Onset Date Comments Medication Refill 12/26/2016 Encounter Details Date Type Department Care Team Description 12/27/2016 Refill Internal Medicine [place] [facility] [place] Allison Hector APRN [facility] [place] [address] GENERAL INTERNAL MED[address] [phone] [place], [place] [address] (Wo rk) Social History Tobacco Use Types Packs/Day Years Used Date Never Smoker Smokeless Tobacco: Never Used Alcohol Use Standard Drinks/Week Comments No 0 (1 standard drink = 0.6 oz pure alcoho l) Sex Assigned at Date Recorded Not on file documented as of this encounter Miscellaneous Notes Telephone Encounter - Hilda Olmos RN - 12/27/2016 8:53 AM EDT From: Elida Montez To: Allison Hector APRN Sent: 12/26/2016 7:01 PM EDT Subject: Medication Renewal Request Original authorizing provider: SOILA JOSHI would like a refill of the following medications: ranitidine (ZANTAC) 150 mg Capsule [ALLISON HECTOR APRN] Preferred pharmacy: [id number] Comment: documented in this encounter Plan of Treatment Not on filedocumented as of this encounter Visit Diagnoses Not on filedocumented in this encounter 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 [place] [address] documented as of this encounter
--- OUTSIDE RECORDS SUMMARY | 2021-12-28 04:09 | XMS_ITS | Encounter Summary ---
:1950 Author Organization [facility] [place] [address] Care Team Providers Name Role Phone Roberta Allison Rain APRN Primary Care Provider [phone] Reason for Visit Reason Onset Date Comments Medication Refill 04/11/2018 Encounter Details Date Type Department Care Team Description 04/13/2018 Refill Gastroenterology at [facility], Gastroesophageal reflux [facility] Marilyn Henry MD disease, [place] [address] One Medical presence not specified [phone] [place] [address] Social History Tobacco Use Types Packs/Day Years [...] this encounter Miscellaneous Notes Telephone Encounter - Liliam Rubio RN - 04/13/2018 1:46 PM EDT From: Elida Montez To: Devi Rosa MD Sent: 04/11/2018 4:32 PM EDT Subject: Medication Renewal Request Original authorizing provider: MD Elida Kay would like a refill of the following medications: esomeprazole (NEXIUM) 40 mg Capsule, Delayed Release(E.C.) [Devi Rosa MD] Preferred pharmacy: [facility] Comment: documented in this encounter Plan of Treatment Not on filedocumented as of this encounter Visit Diagnoses Diagnosis Gastroesophageal reflux disease, esophag itis presence not specified documented in this encounter Care Teams Bottle Hop Relationship Specialty Start Date End Date Allison Granados APRN PCP - General 04/22/14 06/27/[address] [facility] [address] R[address] INTERNAL [place] [address] documented as of this encounter
--- OUTSIDE RECORDS SUMMARY | 2021-12-28 04:09 | XMS_ITS | Encounter Summary ---
:1950 Author Organization [place] [address] Care Team Providers Name Role Phone Allison Granados APRN Primary Care Provider [phone] Reason for Referral Diagnostic Test (Routine) - Closed Specialty Diagnoses / Procedures Referred By Contact Refer red To Contact Radiology Diagnoses Lower abdominal pain Jeannette Campbell MD [facility] Rad Ct Scan Procedures CT Abdomen & Pelvis w Contrast [address] [phone] Phone: Referral ID Status Reason Start Date Expiration Date Visits V isits Requested Authorized [id number] Closed Specialty 01/22/2018 01/22/2019 1 1 Service Requested Reason for Visit Diagnostic Test (Routine) - Closed Specialty Diagnoses / Procedures Referred By Contact Refer red To Contact Radiology Diagnoses Lower abdominal pain Jeannette Campbell MD [facility] Rad Ct Scan Procedures CT Abdomen & Pelvis w Contrast [address] [phone] Phone: Referral ID Status Reason Start Date Expiration Date Visits V isits Requested Authorized [id number] Closed Specialty 01/22/2018 01/22/2019 1 1 Service Requested Encounter Details Date Type Department Care Team Description 01/23/[address] [place] [facility] [place] Jeannette Campbell MD [address] [place] [phone] Social History Tobacco Use Types Packs/Day Years [...] Sig Dispensed Refills Start Date End Date ciprofloxacin (CIPRO) Take 1 tablet by 20 tablet 0 01/23/20 18 02/01/2018 500 mg mouth 2 times daily TabletIndications: Lower for 10 days. abdominal pain metroNIDAZOLE (FLAGYL) Take 1 tablet by 30 tablet 0 018 02/01/2018 500 mg mouth 3 times daily TabletIndications: Lower for 10 days. abdominal pain albuterol 90 Inhale 2 puffs into 18 g 3 12/03/201702/2018 mcg/actuation HFA the lungs every 6 Aerosol Inhaler hours as needed for Wheezing. Use with spacer ibandronate (BONIVA) 150 TAKE ONE TABLET BY [...] times daily. Take before dinner every night. rOPINIRole (REQUIP) 0.5 Take 4 tablets by 360 tablet 3 05/1603/02/2018 mg Tablet mouth nightly. esomeprazole (NEXIUM) 40 Take 1 capsule by 60 capsule 12 03/0804/13/2018 mg Capsule, Delayed mouth 2 times daily Release(E.C.)Indications (before meals). : Gastroesophageal reflux disease, esophagitis presence not specified triamcinolone (KENALOG) Apply scant amount 15 g 0 11/201612/25/2018 0.1 % Ointment topically to affected area daily until symptoms resolve. Then decrease to every other day, then 1-2 times/ week. FLUoxetine (PROZAC) 20 Take 1 tablet by 90 tablet 3 017 04/01/2018 mg Tablet mouth daily. clobetasol (TEMOVATE) Apply scant amount 15 g 0 201612/20/2019 0.05 % Ointment topically to vulva daily as instructed until next appointment in 6-8 weeks. documented as of this encounter Plan of Treatment Not on filedocumented as of this encounter Procedures Procedure Name Priority Date/Time Associated Diagnosis Comme nts CT ABDOMEN AND Routine 01/23/2018 8:37 AM Lower abdominal pain Results for this PELVIS W CONTRAST EDT procedure are in the results section. documented in this encounter Results CT Abdomen & Pelvis w Contrast (01/23/2018 8:37 AM EDT) Anatomical Region Laterality Modality Abdomen, Pelvis Computed Tomography Specimen (Source) Anatomical Location Collection Method / Collectio n Time Received Time / Laterality Volume Impressions 01/23/2018 9:31 AM EDT No sigmoid diverticulosis or diverticulitis. ??No findings to explain left lower quadrant pain. Preliminary report signed by: MARCO ANTONIO CRAIG at 01/23/2018 9:17 AM I have personally reviewed the image(s) and the residents interpretation and agree with the findings, Ricky Fletcher ki at 01/23/2018 9:31 AM Narrative 01/23/2018 9:31 AM EDT EXAMINATION: ??CT ABDOMEN AND PELVIS W CONTRAST CLINICAL HISTORY: ??LLQ pain with change in bowel habits concerning for sigmoid diverticulitis TECHNIQUE: Helical CT of the abdomen and pelvis was performed following the intravenous administration of contrast. 66 cc of Omnipaque 350 was given. Oral contrast was administered. COMPARISON: ??CT abdomen dated 06/10/2016 . FINDINGS: No findings to explain left lo wer quadrant pain. Lower chest: Normal. Liver: Normal size and attenuation witho ut lesions. Bile ducts: Nondilated. Gallbladder: Surgically absent with surg ical clips in the gallbladder fossa. Pancreas: Normal attenuation without alfie dick dilatation. Spleen: Normal. Adrenals: Normal. Kidneys: Symmetrically enhanced. Normal in size. 15 mm low density focus in the midpole the left kidney is unchanged and represents a simple cyst. Other sub-6 mm low-density foci are unchanged inferi or to represent simple cyst. No hydronephrosis or nephrolithiasis. Vasculature: No aneurysms. Scattered abd ominal calcifications. Lymph Nodes: No enlarged lymph nodes. Bowel: No dilated small or large bowel. Redundant sigmoid colon. No diverticula. No bowel wall thickening. The terminal i leum is normal. The appendix is normal. No pericolonic fat stranding. Peritoneum and mesentery: No ascites, fr ee air, or loculated fluid collection. No mesenteric inflammation. Abdominal wall: Normal. Urinary Bladder: Normal. Reproductive organs: Normal. Osseous structures: Facet hypertrophic c hanges in the lower lumbar spine. No suspicious lesions. Procedure Note Ricky Alatorre MD - 01/23/2018For matting of this note might be different from the original. EXAMINATION: CT ABDOMEN AND PELVIS W CON TRAST CLINICAL HISTORY: LLQ pain with change i n bowel habits concerning for sigmoid diverticulitis TECHNIQUE: Helical CT of the abdomen and pelvis was performed following the intravenous administration of contrast. 66 cc of Omnipaque 350 was given. Oral contrast was administered. COMPARISON: CT abdomen dated 06/10/2016. FINDINGS: No findings to explain left lo wer quadrant pain. Lower chest: Normal. Liver: Normal size and attenuation witho ut lesions. Bile ducts: Nondilated. Gallbladder: Surgically absent with surg ical clips in the gallbladder fossa. Pancreas: Normal attenuation without alfie dick dilatation. Spleen: Normal. Adrenals: Normal. Kidneys: Symmetrically enhanced. Normal in size. 15 mm low density focus in the midpole the left kidney is unchanged and represents a simple cyst. Other sub-6 mm low-density foci are unchanged inferi or to represent simple cyst. No hydronephrosis or nephrolithiasis. Vasculature: No aneurysms. Scattered abd ominal calcifications. Lymph Nodes: No enlarged lymph nodes. Bowel: No dilated small or large bowel. Redundant sigmoid colon. No diverticula. No bowel wall thickening. The terminal i leum is normal. The appendix is normal. No pericolonic fat stranding. Peritoneum and mesentery: No ascites, fr ee air, or loculated fluid collection. No mesenteric inflammation. Abdominal wall: Normal. Urinary Bladder: Normal. Reproductive organs: Normal. Osseous structures: Facet hypertrophic c hanges in the lower lumbar spine. No suspicious lesions. IMPRESSION No sigmoid diverticulosis or diverticuli tis. No findings to explain left lower quadrant pain. Preliminary report signed by: MARCO ANTONIO CRAIG at 01/23/2018 9:17 AM I have personally reviewed the image(s) and the residents interpretation and agree with the findings, Ricky Fletcher ki at 01/23/2018 9:31 AM Jeannette Campbell MD IMG CT ORDERABLES documented in this encounter Visit Diagnoses Diagnosis Lower abdominal pain Abdominal pain, other specified site documented in this encounter Administered Medications Inactive Administered Medications - up to 3 most recent administrations Medication Order MAR Action Action Date Dose Rate Site iohexol (OMNIPAQUE) 350 mg/mL Given 01/23/2018 8:39 AM EDT 66 mL s solution 0-200 mL 0-200 mL, Intravenous, ONCE PRN, 1 dose, Starting on Fri01/23/18 at 0839, Until Fri01/23/18 at 0839, Per Protocol, Warning Vesicant/Irritant Medication , Radiology Contrast, Routine iohexol (OMNIPAQUE) 350 mg/mL solution 5 0 mL Given 01/23/2018 8:39 AM EDT 50 mLs 50 mL, Oral, ONCE PRN, 1 dose, Starting on Fri01/23/18 at 0839, Until Fri01/23/18 at 0839, Per Protocol, Warning Vesicant/Irritant Medication , Routine documented in this encounter Care Teams Exterior Door Installer Relationship Specialty Start Date End Date Allison Granados, RESEARCH CENTER DIRECTOR PCP - General 04/22/14 06/27/[address] [facility] [address] [place] [address] documented as of this encounter
--- OUTSIDE RECORDS SUMMARY | 2021-12-28 04:09 | XMS_ITS | Encounter Summary ---
:1950 Author Organization [facility] [place] [address] Care Team Providers Name Role Phone Roberta Allison Rain APRN Primary Care Provider [phone] Reason for Visit Reason Comments Follow-up Encounter Details Date Type Department Care Team Description 03/11/2017 Office Visit Obstetrics and Gynecology Remy Davis Vulvar [place] [facility] [place], [facility] [place] [phone] OBSTETRICS & [phone] GYNECOLOGY [place], [place] [address] (Wo rk) Social History Tobacco Use Types Packs/Day Years Used Date Never Smoker Smokeless Tobacco: Never Used Alcohol Use Standard Drinks/Week Comments No 0 (1 standard drink = 0.6 oz pure alcoho l) Sex Assigned at Date Recorded Not on file documented as of this encounter Last Filed Vital Signs Vital Sign Reading Time Taken Comments Blood Pressure 112/68 03/11/2017 8:28 AM EDT Pulse - - Temperature - - Respiratory Rate - - Oxygen Saturation - - Inhaled Oxygen Concentration - - Weight 53.5 kg (117 lb 14.4 oz) 03/11/2017 8:28 AM EDT Height - - Body Mass Index 22.28 02/10/2017 7:52 AM EDT documented in this encounter Progress Notes Perri Mckoy LPN - 03/11/2017 8:40 AM EDT Stopped clobetasol (pt states instructed not to use mcfp), very sore now with itching Marcella Davis CNM - 03/11/2017 8:40 AM EDT Department of Rn Resource Nurse Established Patient - Follow up visit PCP: SOILA Akbar Tc is a 66 y.o. year old woman who is here today for: follow up vulvar lesion She saw me initially on 07/19/16 for a complaint of a reddened sore vulvar lesion of one month duration and was found to have 2 small very shallow oval ulcerations/abrasions on the lower aspect of R inner labia minora. There were no other lesions or skin changes. Dr Wen was involved in examination and making plan of care. A biopsy was done which showed Vulvar lesion, right inner labium, biopsy: Epidermal acanthosis and hyperkeratosis with focus??of ulceration and inflammation, cannot exclude d-STEFF. The sections show epidermal acanthosis associated with hyperkeratosis and a focus of ulceration with surface fibrinopurulent exudate and acute and chronic inflammation. There is basal cell atypia associated with P53 basal cell nuclear immunoreactivity that is near contiguous. The possibility of d-STEFF (STEFF simplex) is not excluded. The PAS/fungal stain is negative. Early changes of lichen sclerosus are not excluded. I discussed biopsy results with Dr Wen who felt that d-STEFF not likely, and recommended the pt use clobetasol 0.05% ointment scant amt daily to affected area until reevaluation in 6-8 weeks. She was seen for follow up in 09/2016 and reported that her symptoms had completely resolved. Dr Wen recommended that she use clobetasol 2-3 times/ week for a month and then discontinue, follow up reevaluation in 6 mos, sooner prn. She is here for follow up today. She reports that she used the clobetasol ointment as directed. She had no symptoms but she began having mild itching/irritation again at the beginning of the summer. She was not having any soreness as was the case with previous symptoms. She says that the itching became more uncomfortable a month or so ago. She reports that it is annoying. She says it itches more if she scratches. She has not used any topical medications on this and does not use OTC products for it. She is postmenopausal and denies vaginal bleeding or spotting. No abdominal or pelvic pain or discomfort, no change in bowel function. No dysuria or other urinary complaints. No problems with incontinence. No abnormal vaginal discharge. 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 She uses oxybutynin for urgency incontinence, 5 mg works well for her. ?? Patient Active Problem List Diagnosis ??? Asthma ??? Renal mass ??? Restless leg syndrome - doing well on requip. Iron stores were low, will replace ??? Low ferritin level ??? Osteopenia ??? Health care maintenance Pap- last done 08/03/10 Colonoscopy- done 12/29/08 Mammogram- 11/12/12 Tdap- 09/16/08 Pneumovax- 08/12/2006, 09/15/13 Prevnar- 10/05/14 ??? Pain in limb (LEG) Bilateral radiates UP from soles to back ??? Neck pain ??? Radiculopathy of lumbar region ??? Gastroesophageal reflux ??? Elevated TSH - possible Hashimotto's, recommended at least yearly TSH checks. ??? IBS (irritable bowel syndrome) ??? Urinary frequency PMHx: per problem list and above Past Surgical History: Procedure Laterality Date ??? CATARACT REMOVAL ??? CHOLECYSTECTOMY, LAPAROSCOPIC ??? EYE SURGERY macular hole ??? PRO UPPER GI ENDOSCOPY, DIAGNOSTIC N/A 12/25/2015 EGD, UPPER GI ENDOSCOPY performed by Jeff Schneider MD at [facility] ENDOSCOPY ??? TONSILLECTOMY AND ADENOIDECTOMY SOCIAL/HEALTH RELATED HABITS: Social History Narrative She has a sister with history of Myasthenia Gravis. 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 Social History Substance Use Topics ??? Smoking status: Never Smoker ??? Smokeless tobacco: Never Used ??? Alcohol use No Current Outpatient Prescriptions on File Prior to Visit Medication Sig Dispense Refill ??? rOPINIRole (REQUIP) 0.5 mg Tablet Take 3 tablets by mouth nightly. 270 tablet 3 ??? esomeprazole (NEXIUM) 40 mg Capsule, Delayed Release(E.C.) Take 1 capsule by mouth daily. Take 30 minutes before dinner. 30 capsule 12 ??? ranitidine (ZANTAC) 150 mg Capsule Take 1 capsule by mouth 2 times daily. Take before dinner every night. 60 capsule 3 ??? albuterol (PROVENTIL HFA;VENTOLIN HFA;PROAIR) 90 [...] 2 times daily. 3 Inhaler 3 ??? oxybutynin (DITROPAN-XL) 5 mg Tablet [...] facility-administered medications on file prior to visit. Allergies Allergen Reactions ??? Codeine Nausea And Vomiting EXAM: problem focussed BP 112/68 Wt 53.5 kg (117 lb 14.4 oz) BMI 22.28 kg/m2 General: well appearing woman in NAD Pelvic exam: Vulva: Atrophic changes c/w postmenopausal status. There are hyperpigmentation changes on the inner labia bilaterally unchanged from previous exams. Labia minora present anteriorly, absent posteriorly on L, clitoral alvarez sl flattened, not mobile. No areas of erythema or ulceration. The area where biopsy was done in Jul is normal in appearance. There are very tiny spots of pale/white tissue noted on lower labia minora. There are no lesions, ulcerations, nodules, excoriation, fissuring, or other vulvar skin changes. Urethral meatus: wnl, BUS neg; atrophic changes c/w postmenopausal status. Impression: Postmenopausal woman with vulvar itching. 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 Dr Wen examined patient who felt that this could represent LS but it is not certain, and thereis no spot for a useful biopsy. She recommended topical triamcinolone 1% ointment, pt to use this daily until symptoms resolve, then decrease to every other day for a few weeks, then 1-2 times/week. Wereviewed how to use scant amt. Discussed avoidance of contact vulvar irritants. Handout on vulvar care guidelines given and reviewed. Yeast culture sent, will follow up and treat if indicated. Follow up: She is to [place] in 6 mos, coordinate with another visit to since she lives over an hour away. RV sooner if sx do not resolve or if they recur. She agrees with this plan. RV/call prn questions, concerns, problems. documented in this encounter Plan of Treatment Not on filedocumented as of this encounter Procedures Procedure Name Priority Date/Time Associated Diagnosis Comme nts YEAST CULTURE Routine 03/11/2017 9:30 AM Vulvar itching Result s for this EDT procedure are i n the results section . documented in this encounter Results Yeast culture Vaginal (03/11/2017 9:30 AM EDT) [facility] Method Time Signature Yeast Culture No Yeast [facility] LABORATORY Specimen Anatomical Collection Method Collection Time Receive d Time (Source) Location / / Volume Laterality Vaginal 03/11/2017 9:30 AM 7 EDT 11:48 AM EDT Resulting Agency Comment Spec In Lab River Perdomo MD MICROBIOLOGY - GENERAL ORDER SOURAV Performing Organization Address City/State/ZIP Code Phon e Number [place] [phone] documented in this encounter Visit Diagnoses Diagnosis Vulvar itching Pruritus of genital organs documented in this encounter Care Teams Log Grader Relationship Specialty Start Date End Date Allison Granados APRN PCP - General 04/22/14 06/27/[address] [facility] [place] [address] documented as of this encounter
--- OUTSIDE RECORDS SUMMARY | 2021-12-28 04:09 | XMS_ITS | Encounter Summary ---
:1950 Author Organization [facility] [place] [address] Care Team Providers Name Role Phone Allison Granados APRN Primary Care Provider [phone] Encounter Details Date Type Department Care Team Description 04/04/2017 Tele[place] [facility] [place] [phone] Social History Tobacco Use Types Packs/Day [...] this encounter Miscellaneous Notes Telephone Encounter - Prema Morales [facility] - 04/04/2017 3:37 PM EDT Medication Prior Authorization 4L Gastroenterology / [place] [address] Subscriber Insurance: [employer] Phone: Fax: Physician: Devi Rosa Return Pharmacy: Phone: Fax: Medication Requested: mirlax Strength: 17g Frequency: Daily as prn Disp.: 14 Refills: 5 Currently taking: yes Diagnosis for this medication: K59.09 ICD-10 code: Prior medications trialed in this patient: metamucil Medication: Outcome/Adverse Reactions: Decision: Denied because Not on formulary Listing Tracking number/Case number/Reference number: Effective date: Start: End: documented in this encounter Plan of Treatment Not on filedocumented as of this encounter Visit Diagnoses Not on filedocumented in this encounter Care Teams Coach Relationship Specialty Start Date End Date Allison Granados APRN PCP - General 04/22/14 06/27/[address] [facility] [address] [place] [address] documented as of this encounter
--- OUTSIDE RECORDS SUMMARY | 2021-12-28 04:09 | XMS_ITS | Encounter Summary ---
:1950 Author Organization [facility] [place] [address] Care Team Providers Name Role Phone Allison Granados APRN Primary Care Provider [phone] Reason for Visit Reason Comments GI Problem Consultation (Routine) - Closed Specialty Diagnoses / Procedures Referred By Contact Refer red To Contact Gastroenterology Diagnoses Gastroesophageal reflux disease without esophagitis Allison Granados [facility] Gastro 4l INSULATION EXTRUDER OPERATOR [facility] [place] [address] [place] [address] Referral ID Status Reason Start Date Expiration Date Visits V isits Requested Authorized [id number] Closed Specialty 02/10/2017 02/10/2018 1 1 Service Requested Encounter Details Date Type Department Care Team Description 04/02/2017 [place] [facility] [place], Gastroesophageal reflux dise ase, esophagitis presence not specified (Primary Dx); [facility] Marilyn Henry MD Chronic constipation; [place] [address] [facility] Functional bowel disorder [phone] [place] [place] [address] Social History Tobacco Use Types Packs/Day Years [...] Sign Reading Time Taken Comments Blood Pressure 123/72 04/02/2017 7:59 AM EDT Pulse 61 04/02/2017 7:59 AM EDT Temperature - - Respiratory Rate - - Oxygen Saturation - - Inhaled Oxygen Concentration - - Weight 54.1 kg (119 lb 3.2 oz) 04/02/2017 7:59 AM EDT Height 154.9 cm (5' 1) 04/02/2017 7:59 AM EDT Body Mass Index 22.52 04/02/2017 7:59 AM EDT documented in this encounter Patient Instructions Patient InstructionsDevi Rosa MD - 04/02/2017 8:00 AM EDT Thank you for coming in to see me today.I think you have bad night time acid reflux as well as some fluctuating constipation/diarrhea. Here is the plan we developed together: NIGHT-TIME CHEST PAIN . 1. Elevate HOB - recommend wedge pillow or bricks under head of bed. 2. Increase Nexium 40 mg twice daily, 30 minutes before breakfast and 30 minutes before dinner. 3. Continue Zantac (2 pills or 300 mg) at bedtime. 5. If no improvement after 4-6 weeks, we can obtain pH capsule testing with manometry. FLUCTUATING BOWEL HABITS - functional unlikely infection, inflammation, microscopic colitis 1. Add daily fiber supplement (goal is 25 gram/day or 1 teaspoon three times per day). 2. Drink plenty of fluid. 3. Miralax one packet per day if constipated. Please contact my office via [facility] in 4 weeks with update on status so we can decide if further testing is needed. documented in this encounter Progress Notes Devi Rosa MD - 04/02/2017 8:00 AM EDT Gastroenterology & Hepatology New Patient Consultation Note Ms. Elida Montez is a 66 y.o. female who presents to the section of Gastroenterology for consultation at the request of Dr. Allison Granados APRN for GERD and question of esophageal spasms. Patient Active Problem List Diagnosis Code ??? [...] Elevated TSH R94.6 ??? Gastroesophageal reflux K21.9 HISTORY OF PRESENT ILLNESS She describes discomfort refluxing up into chest causing chest pain and difficulty breathing for which she takes casey seltzer several times a week. Worst after bedtime. Started a year ago. She is taking Nexium 40 mg daily in the morning and zantac in the afternoon and before bed. Drinks one cup of coffee in the morning. Doesn't eat spicy food. Sleeps on two pillows. Some lower abdominal discomfort associated with nausea, improves with moving her bowels. Also fluctuating constipation (passing small hard balls, once every 3-4 days) to regular (soft, easyto pass) to diarrhea, no known food associations. Takes iron. No help with Metamucil. Was once told she had ulcerative colitis but subsequent doctor removed the diagnosis. Colonoscopy in 2008 was normal. EGD 12/2015 - normal, z line 35 cm Stress echo 02/2016 normal Cardiac enzymes 08/2016 negative Rare dysphagia. No weight loss, hematochezia, melena. Mother with diverticulitis, PUD. REVIEW OF SYSTEMS Notable for the gastrointestinal symptoms as described above. There has been no anorexia, fever, or unintended weight change; no red or painful eyes; no oral ulcers, chronic oral lesions, or chronic sore throat. No cough. There is no dysuria, urinary incontinence. + joint pains. There is no recent skin rash. The patient denies psychiatric problems. There are no neurologic symptoms or easy bruising orbleeding. PAST MEDICAL HISTORY: Past Medical History: Diagnosis Date ??? Asthma ??? GERD (gastroesophageal reflux disease) PAST SURGICAL HISTORY: Past Surgical History: Procedure Laterality Date ??? CATARACT REMOVAL ??? CHOLECYSTECTOMY, LAPAROSCOPIC ??? EYE SURGERY macular hole ??? PRO UPPER GI ENDOSCOPY, DIAGNOSTIC N/A 12/25/2015 EGD, UPPER GI ENDOSCOPY performed by Jeff Schneider MD at [facility] ENDOSCOPY ??? TONSILLECTOMY AND ADENOIDECTOMY MEDICATIONS: Current Outpatient Prescriptions Medication Sig Dispense Refill ??? triamcinolone (KENALOG) 0.1 % Ointment Apply scant amount topically to affected area daily untilsymptoms resolve. Then decrease to every other day, then 1-2 times/ week. 15 g 0 ??? FLUoxetine (PROZAC) 20 mg Tablet Take 1 tablet by mouth daily. 90 tablet 3 ??? rOPINIRole (REQUIP) 0.5 mg Tablet [...] in 6-8 weeks. 15 g 0 ??? oxybutynin (DITROPAN-XL) 5 mg Tablet Extended Rel 24 hr Take 1 tablet by mouth daily. 90 tablet 3 ??? ferrous sulfate 325 mg (65 mg iron) Tablet, Delayed Release (E.C.) Take 1 tablet by mouth daily.90 tablet 3 No current facility-administered medications for this visit. ALLERGIES/ADR Allergies Allergen Reactions ??? Codeine Nausea And Vomiting SOCIAL HISTORY: Social History Social History Narrative She lives with her . Son and granddaughter lives next door. 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 She has a sister with history of Myasthenia Gravis. She lives in [place], [place]. Social History Substance Use Topics ??? Smoking status: Never Smoker ??? Smokeless tobacco: Never Used ??? Alcohol use Yes Comment: 1 glass of wine/month FAMILY HISTORY: family history includes Asthma in her mother; Cancer in her maternal aunt and maternal aunt; Cerebrovascular Accident in her mother; Coronary Artery Disease in her father, maternal grandmother, and mother; Esophageal Cancer in her maternal grandfather; Gallbladder Disease in her mother; Hyperlipidemiain her mother; Hypertension in her brother; Lung Cancer in her paternal uncle; Other in her sister. There is no history of Type 2 Diabetes. There is no family history of inflammatory bowel disease, celiac disease, or colorectal cancer. There is no history of liver disease. PHYSICAL EXAMINATION: Most Recent Vitals: 04/02/17 0759 BP: 123/72 Pulse: 61 Wt Readings from Last 3 Encounters: 04/02/17 54.1 kg (119 lb 3.2 oz) 03/11/17 53.4 kg (117 lb 12.8 oz) 03/11/17 53.5 kg (117 lb 14.4 oz) Body mass index is 22.52 kg/(m^2). GEN: Thin, healthy-appearing in no acute distress. Appears stated age. Cooperate and answers questions appropriately. SKIN: No rashes or abnormal lesions. NECK: No adenopathy and no thyromegaly. HEENT: PERRL, EOMI, VISION MIXER and OP clear without ulceration or lesions. LUNGS: Clear to auscultation bilaterally. COR: Regular, normal S1 and S2 without murmurs ABD: Normal active bowel sounds. Soft and non-distended. No tenderness to deep palpation in all 4 quadrants. No organomegaly. EXT: No cyanosis, clubbing or edema. PSYCH: mood appropriate, good eye contact, normal interaction ADDITIONAL TESTING: Reviewed available labs, imaging and endoscopy results in [facility] as well as Scan Docs tab. IMPRESSION: Ms. Montez is a 66 yo F with GERD and years of irregular bowel habits who I am seeing for the firsttime. I suspect her episodes of chest pain are due to ongoing GERD, especially given the predominantnight time symptoms and improvement with antacids. In addition, she has fluctuating bowel habits with some lower abdominal discomfort that improves with defecation. Her symptoms fit a functional bowel picture rather than IBD, malignancy, infection, etc. We discussed the following recommendations that were printed out for the patient: RECOMMENDATIONS: NIGHT-TIME CHEST PAIN - sounds consistent with GERD, less likely GEETHA given the associated feeling ofreflux. 1. Education on GERD. 2. Elevate HOB - recommend wedge pillow or bricks under head of bed. 3. Increase Nexium 40 mg BID. 4. Change Zantac to 300 mg at bedtime. 5. If no improvement after 4 weeks, will obtain pH capsule testing with manometry for placement. FLUCTUATING BOWEL HABITS - functional unlikely infection, inflammation (IBD), microscopic colitis, malignancy 1. Add daily fiber supplement (goal is 25 gram/day or 1 teaspoon TID). 2. Drink plenty of fluid. 3. Miralax PRN. DISPO 1. Patient to contact my office via [facility] in 4 weeks with update on status. 2. RTC in 4 months. The patient was given my contact information and will call me with concerns or questions Devi Rosa MD, MS Wind Turbine Service Techniciansteam table worker Section of Gastroenterology [place] [address] [email or web address] documented in this encounter Plan of Treatment Not on filedocumented as of this encounter Visit Diagnoses Diagnosis Gastroesophageal reflux disease, esophag itis presence not specified - Primary Chronic constipation Unspecified constipation Functional bowel disorder Unspecified functional disorder of intes elizabeth documented in this encounter Care Teams Bearing Ring Assembler Relationship Specialty Start Date End Date Allison Granados, SOILA PCP - General 04/22/14 06/27/21 [facility] [address] ROD INTERNAL [facility] [place] [place] [address] documented as of this encounter
--- OUTSIDE RECORDS SUMMARY | 2021-12-28 04:09 | XMS_ITS | Encounter Summary ---
:1950 Author Organization [facility] [place] [address] Care Team Providers Name Role Phone Allison Hector APRN Primary Care Provider [phone] Reason for Visit Reason Onset Date Comments Medication Refill 11/20/2016 Encounter Details Date Type Department Care Team Description 11/21/2016 Refill Internal Medicine at [facility] Perri Alba RN [address] [place] [address] [id number] Social History Tobacco Use Types Packs/Day Years Used Date Never Smoker Smokeless Tobacco: Never Used Alcohol Use Standard Drinks/Week Comments No 0 (1 standard drink = 0.6 oz pure alcoho l) Sex Assigned at Date Recorded Not on file documented as of this encounter Miscellaneous Notes Telephone Encounter - Perri Alba RN - 11/21/2016 2:27 PM EDT From: Elida Nikolay Tc To: Allison Hector APRN Sent: 11/20/2016 1:31 PM EDT Subject: Medication Renewal Request Original authorizing provider: SOILA JOSHIDavie GibsonTc would like a refill of the following medications: ibandronate (BONIVA) 150 mg Tablet [ALLISON HECTOR APRN] Preferred pharmacy: [id number] [phone] [id number] Comment: documented in this encounter Plan of Treatment Not on filedocumented as of this encounter Visit Diagnoses Not on filedocumented in this encounter Care Teams Wire Preparation Machine Tender Relationship Specialty Start Date End Date Allison Hector APRN PCP - General 04/22/14 06/27/[address] [facility] [place] [address] documented as of this encounter
--- OUTSIDE RECORDS SUMMARY | 2021-12-28 04:09 | XMS_ITS | Encounter Summary ---
:1950 Author Organization [facility] [place] [address] Care Team Providers Name Role Phone Allison Granados APRN Primary Care Provider [phone] Encounter Details Date Type Department Care Team Description 01/23/2018 Telephone Internal Medicine at [place] Jeannette Campbell MD [address] [facility] [address] [place] [address] Social History Tobacco Use Types Packs/Day Years [...] encounter Miscellaneous Notes Telephone Encounter - Jeannette Campbell MD - 01/23/2018 10:39 AM EDT Called Ms. Montez to give results of CT ab/pelvis. No signs of diverticulitis. Recommended stoppingabx that had been started empirically last night before CT scan. Pain slightly better this am - today more in epigastric area. (Given this I think it's unlikely CT not catching true diverticulitis). Wediscussed that IBS can sometimes change in character and that this may be a presentation of IBS rather than some more severe pathology. Discussed return to medical care precautions - if fever, chills, severe n/v over the weekend to re-present. And then also discussed if symptoms persist to discuss again with either myself or PCP - as perhaps may benefit from anti-spasmodic IBS treatment. documented in this encounter Plan of Treatment Not on filedocumented as of this encounter Visit Diagnoses Not on filedocumented in this encounter Care Teams Silo Filler Relationship Specialty Start Date End Date Allison Granados APRN PCP - General 04/22/14 06/27/[address] [facility] [place] [address] documented as of this encounter
--- OUTSIDE RECORDS SUMMARY | 2021-12-28 04:09 | XMS_ITS | Encounter Summary ---
:1950 Author Organization [facility] Address [address] [place] [address] Care Team Providers Name Role Phone Allison Granados APRN Primary Care Provider [phone] Encounter Details Date Type Department Care Team Description 04/25/2017 Hospital Encounter Mamm[place] [facility] Allison Granados Encounter for [facility] SOILA Rain screening mammogram Drive [facility] for breast cancer [facility] [address] GENERAL INTERNAL [phone] [place], [place] [address] Social History Tobacco Use Types [...] Sig Dispensed Refills Start Date End Date esomeprazole (NEXIUM) 40 Take 1 capsule by 60 capsule 12 03/0804/13/2018 mg Capsule, Delayed mouth 2 times daily Release(E.C.)Indications: (before meals). Gastroesophageal reflux disease, esophagitis presence not specified polyethylene glycol Take 17 g by mouth 30 each 5 04/02/20 17 05/14/2017 (MIRALAX) 17 gram Powder daily as needed. in PacketIndications: Chronic constipation triamcinolone (KENALOG) Apply scant amount 15 g 0 11/201612/25/2018 0.1 % Ointment topically to affected area daily until symptoms resolve. Then decrease to every other day, then 1-2 times/ week. FLUoxetine (PROZAC) 20 mg Take 1 tablet by 90 tablet 3 11/201604/01/2018 Tablet mouth daily. rOPINIRole (REQUIP) 0.5 Take 3 tablets by 270 tablet 3 02/2405/16/2017 mg Tablet mouth nightly. ranitidine (ZANTAC) 150 Take 1 capsule by 60 capsule 3 02/1006/20/2017 mg Capsule mouth 2 times daily. Take before dinner every night. albuterol (PROVENTIL Inhale 2 puffs into 1 Inhaler 3 201612/03/2017 HFA;VENTOLIN HFA;PROAIR) the lungs as 90 mcg/actuation HFA needed. Use with Aerosol Inhaler spacer ibandronate (BONIVA) 150 Take 1 tablet by 1 tablet 12 11/2111/29/2017 mg Tablet mouth every 30 days. Take in AM with full glass of water, on an empty stomach. Do not lie down for 30 min. fluticasone-salmeterol Inhale 1 puff into 3 Inhaler 3 08/1309/29/2017 (ADVAIR DISKUS) 250-50 the lungs 2 times mcg/dose Disk with Device daily. clobetasol (TEMOVATE) Apply scant amount 15 g 0 201612/20/2019 0.05 % Ointment topically to vulva daily as instructed until next appointment in 6-8 weeks. oxybutynin (DITROPAN-XL) Take 1 tablet by 90 tablet 3 07/1907/08/2017 5 mg Tablet Extended Rel mouth daily. 24 hr ferrous sulfate 325 mg Take 1 tablet by 90 tablet 3 016 06/20/2017 (65 mg iron) Tablet, mouth daily. Delayed Release (E.C.) documented as of this encounter Plan of Treatment Not on filedocumented as of this encounter Procedures Procedure Name Priority Date/Time Associated Diagnosis Comme nts MAMMO SCREENING CAD Routine 04/25/2017 10:39 AM Encounter for Results for this AND ERNESTO BILATERAL EDT screening mammogram pr ocedure are in for breast cancer the result s section. documented in this encounter Results Mammo Screen CAD and Ernesto Bilat (Generic) (04/25/2017 10:39 AM EDT) Anatomical Region Laterality Modality Breast Bilateral Mammography Specimen (Source) Anatomical Location Collection Method / Collectio n Time Received Time / Laterality Volume Narrative 04/25/2017 11:15 AM EDT BILATERAL MAMMOGRAPHY REASON FOR EXAM: Screening TECHNIQUE: CC and MLO views were obtaine d of each breast using standard 2-D mammography as well as 3-D tomosynth esis. Computer aided detection was used. This is compared with prior images . FINDINGS: ??The breasts are heterogeneou sly dense, which may obscure small masses. There are no suspicious microcal cifications, masses, or areas of distortion. The pattern is stable. CONCLUSION: No mammographic evidence of malignancy. RECOMMENDATION: The [employer] [place] [employer] and The Society of Breast Imaging recommend annual screenin g beginning at age 40 for the general female population. Screening glen uld continue as long as a woman is in good health and is expected to live 1 0 more years or longer. All women should be familiar with the known benefi ts, limitations, and potential harms linked to breast cancer screening. They should also know how their breasts normally look and feel and repor t any breast changes to a health care provider right away. Some women - b ecause of their family history, a genetic tendency, or certain other facto rs - should be screened with MRIs along with mammograms. (The number of wo men who fall into this category is very small.) The patient and health care provider should discuss the patient history and decide if earlier sc reening and breast MRI are appropriate. A result letter has been sent to this pa jermain by the [facility]. BIRADS CATEGORY 1: NEGATIVE Allison Granados APRN IMG MAMMO ORDERABLES documented in this encounter Visit Diagnoses Diagnosis Encounter for screening mammogram for br east cancer documented in this encounter Care Teams Edi Programmer Analyst Relationship Specialty Start Date End Date Allison Granados, SOILA PCP - General 04/22/14 06/27/21 [facility] [place] [address] documented as of this encounter
--- OUTSIDE RECORDS SUMMARY | 2021-12-28 04:09 | XMS_ITS | Encounter Summary ---
:1950 Author Organization [facility] [place] [address] Care Team Providers Name Role Phone Allison Hector APRN Primary Care Provider [phone] Reason for Visit Reason Onset Date Comments Medication Refill 04/01/2018 Encounter Details Date Type Department Care Team Description 04/01/2018 Refill Internal Medicine at [facility] Zayda Spears [address] [id number] Social History Tobacco Use Types Packs/Day Years [...] this encounter Miscellaneous Notes Telephone Encounter - Zayda Spears CMA - 04/01/2018 8:48 AM EDT From: Elida Nikolay Tc To: Allison Hector APRN Sent: 04/01/2018 8:13 AM EDT Subject: Medication Renewal Request Original authorizing provider: SOILA JOSHI would like a refill of the following medications: FLUoxetine (PROZAC) 20 mg Tablet [ALLISON HECTOR APRN] Preferred pharmacy: [id number] Comment: documented in this encounter Plan of Treatment Not on filedocumented as of this encounter Visit Diagnoses Not on filedocumented in this encounter Care Teams Traffic Lieutenant Relationship Specialty Start Date End Date Allison Hector APRN PCP - General 04/22/14 06/27/[address] [facility] [address] [place] [address] documented as of this encounter
--- OUTSIDE RECORDS SUMMARY | 2021-12-28 04:09 | XMS_ITS | Encounter Summary ---
:1950 Author Organization [facility] Address [facility] [place] [address] Care Team Providers Name Role Phone Allison Granados APRN Primary Care Provider [phone] Encounter Details Date Type Department Care Team Description 09/17/2017 [place] [facility] [place]; [facility] Marilyn MILLER Gastroesophageal reflux dise ase, esophagitis presence not specified [place] [id number] Social History Tobacco Use Types Packs/Day Years [...] documented as of this encounter Progress Notes Corin Cortez RN - 09/17/2017 2:00 PM EDT At 1:56 Olmos capsule deployed and placed at 35cm from incisors without difficulty. Dr. Curtis Ruiz present for procedure. Study being performed on [id number] bid and Nexium 40mg q hs. First pH: 7.4 Patient tolerated well. Olmos teaching completed. Patient verbalized understanding of how to use the Olmos gang miner and willcall with any question/concern. documented in this encounter Plan of Treatment Not on filedocumented as of this encounter Visit Diagnoses Diagnosis Other chest pain Gastroesophageal reflux disease, esophag itis presence not specified documented in this encounter Care Teams Architectural Associate Relationship Specialty Start Date End Date Allison Granados, SOILA PCP - General 04/22/14 06/27/[address] [facility] [place] [address] documented as of this encounter
--- OUTSIDE RECORDS SUMMARY | 2021-12-28 04:09 | XMS_ITS | Encounter Summary ---
:1950 Author Organization [place] [address] Care Team Providers Name Role Phone Allison Granados APRN Primary Care Provider [phone] Encounter Details Date Type Department Care Team Description 02/16/2018 Orders Only Internal Medicine at [place] RobertaCarl, Road HEAD NURSE [address] [facility] [place] [address] [facility] [address] [phone] [place] [phone] (Wo rk) Social History Tobacco Use Types [...] on filedocumented in this encounter Care Teams Medication Nurse Relationship Specialty Start Date End Date Allison Granados APRN PCP - General 04/22/14 06/27/[address] [facility] [address] [place] [address] documented as of this encounter
--- OUTSIDE RECORDS SUMMARY | 2021-12-28 04:09 | XMS_ITS | Encounter Summary ---
:1950 Author Organization [facility] [place] [address] Care Team Providers Name Role Phone Allison Granados APRN Primary Care Provider [phone] Reason for Visit Reason Comments Follow-up Encounter Details Date Type Department Care Team Description 11/11/2017 Office Visit Internal Medicine Allison Granados oesophageal reflux disease, esophagitis presence not specified; at [facility] SOILA Rain Adjustment disorder with mixed anxiety a nd depressed mood [address] [place] [address] GENERAL INTERNAL [phone] [place], [place] [address] Social History Tobacco Use Types [...] Sign Reading Time Taken Comments Blood Pressure 109/60 11/11/2017 7:55 AM EDT Pulse 56 11/11/2017 7:55 AM EDT Temperature - - Respiratory Rate - - Oxygen Saturation 100% 11/11/2017 7:55 AM EDT Inhaled Oxygen Concentration - - Weight 51.9 kg (114 lb 6.4 oz) 11/11/2017 7:55 AM EDT Height 152.4 cm (5') 11/11/2017 7:55 AM EDT Body Mass Index 22.34 11/11/2017 7:55 AM EDT documented in this encounter Progress Notes Allison Granados APRN - 11/11/2017 8:00 AM EDT PCP: Allison Granados APRN Chief Complaint Patient presents with ??? Follow-up SUBJECTIVE: Elida Montez is a 67 y.o. female who presents for follow up. She has been off of the reflux medication for a month now. She has been sleeping in a recliner because of the reflux. She reports that ifit wakes her at night she has to go to the recliner and drink a glass of water. She reports that she is doing well other than feeling tired but has not been sleeping as much because of waking up a lot. - her legs has been doing well with the requip. She reports that it controls it well. Asthma- taking her advair and has her albuterol and it is good. GERD- has been followed by gasto, waiting to hear further plan. Review of Systems Allergies Allergen Reactions ??? Codeine Nausea And Vomiting Current Outpatient Prescriptions Medication Sig Dispense Refill ??? fluticasone-salmeterol (ADVAIR [...] for 30 min. 1 tablet 12 ??? clobetasol (TEMOVATE) 0.05 % Ointment Apply [...] R94.6 ??? Gastroesophageal reflux K21.9 OBJECTIVE: Vitals: 11/11/17 0755 BP: 109/60 Pulse: 56 SpO2: 100% Weight: 51.9 kg (114 lb 6.4 oz) Height: 152.4 cm (5') [...] reflux disease, esophagitis presence not specified - follow up with GI for results that confirm GERD Adjustment disorder with mixed anxiety and depressed mood - doing well, continue on current dose Restless Leg Syndrome - doing well at this time. documented in this encounter Plan of Treatment Not on filedocumented as of this encounter Visit Diagnoses Diagnosis Gastroesophageal reflux disease, esophag itis presence not specified Adjustment disorder with mixed anxiety a nd depressed mood documented in this encounter Care Teams Delicatessen Clerk Relationship Specialty Start Date End Date Allison Granados APRN PCP - General 04/22/14 06/27/21 [facility] [place] [address] documented as of this encounter
--- OUTSIDE RECORDS SUMMARY | 2021-12-28 04:09 | XMS_ITS | Encounter Summary ---
:1950 Author Organization [facility] [place] [address] Care Team Providers Name Role Phone Allison Granados APRN Primary Care Provider [phone] Reason for Visit Reason Onset Date Comments Medication Refill 07/05/2017 Encounter Details Date Type Department Care Team Description 07/08/2017 [facility] [place] [address] OBSTETRICS & GYNECOLOGY [phone] [place], [place] [address] (Wo rk) Social History Tobacco [...] this encounter Miscellaneous Notes Telephone Encounter - Shara Davis [facility] - 07/08/2017 10:03 AM EST From: Elida Montez To: Shara Davis CNM Sent: 07/05/2017 7:01 AM EST Subject: Medication Renewal Request Original authorizing provider: ROSEANNA BRODY would like a refill of the following medications: oxybutynin (DITROPAN-XL) 5 mg Tablet Extended Rel 24 hr [SHARA DAVIS CNM] [id number] Comment: documented in this encounter Plan of Treatment Not on filedocumented as of this encounter Visit Diagnoses Not on filedocumented in this encounter Care Teams Ship Yard Electrical Person Relationship Specialty Start Date End Date Allison Granados APRN PCP - General 04/22/14 06/27/[address] [facility] [address] [place] [address] documented as of this encounter
--- OUTSIDE RECORDS SUMMARY | 2021-12-28 04:09 | XMS_ITS | Encounter Summary ---
:1950 Author Organization [facility] [address] Care Team Providers Name Role Phone Allison Granados APRN Primary Care Provider [phone] Reason for Visit Reason Comments Medication Refill Encounter Details Date Type Department Care Team Description 11/29/2017 Refill Internal Medicine at [place] Allison Murphy, CONSTRUCTION PROJECT MANAGER Road [facility] [address] Gutierrez [facility] [place] [address] RD [phone] [place], [place] [address] (Wo rk) Social History Tobacco [...] on filedocumented in this encounter Care Teams Precision Assembler Relationship Specialty Start Date End Date Allison Granados APRN PCP - General 04/22/14 06/27/[address] [facility] [place] [address] documented as of this encounter
--- OUTSIDE RECORDS SUMMARY | 2021-12-28 04:09 | XMS_ITS | Encounter Summary ---
:1950 Author Organization [facility] Address [facility] [place] [address] Care Team Providers Name Role Phone Allison Granados APRN Primary Care Provider [phone] Reason for Visit Reason Comments Other 4 week followup on mood Encounter Details Date Type Department Care Team Description 03/11/2017 Office Visit Internal Medicine at [facility] Ad justment disorder [place] Ho Rain APRN with mixed anxiety [address] [facility] and depressed mood [place] [address] GENERAL INTERNAL [phone] [place], [place] [address] (Wo rk) Social History Tobacco Use Types Packs/Day Years Used Date Never Smoker Smokeless Tobacco: Never Used Alcohol Use Standard Drinks/Week Comments No 0 (1 standard drink = 0.6 oz pure alcoho l) Sex Assigned at Date Recorded Not on file documented as of this encounter Last Filed Vital Signs Vital Sign Reading Time Taken Comments Blood Pressure 120/66 03/11/2017 10:44 AM EDT Pulse 65 03/11/2017 10:44 AM EDT Temperature 36.9 ??C (98.5 ??F) 03/11/2017 10:44 AM EDT Respiratory Rate - - Oxygen Saturation 98% 03/11/2017 10:44 AM EDT Inhaled Oxygen Concentration - - Weight 53.4 kg (117 lb 12.8 oz) 03/11/2017 10:44 AM EDT Height 154.9 cm (5' 1) 03/11/2017 10:44 AM reported EDT Body Mass Index 22.26 03/11/2017 10:44 AM EDT documented in this encounter Progress Notes Allison Granados APRN - 03/11/2017 11:20 AM EDT PCP: Allison Granados APRN Chief Complaint Patient presents with ??? Other 4 week followup on mood SUBJECTIVE: Elida Montez is a 66 y.o. female who presents for follow up - she has noticed that she is not as irritable. No side effects from the medication. She reports that she takes it at night and that seems to work well for her. Review of Systems Constitutional: Negative for chills and fever. Psychiatric/Behavioral: Negative for dysphoric mood and self-injury. The patient is not nervous/anxious. Allergies Allergen Reactions ??? Codeine Nausea And Vomiting Current Outpatient Prescriptions Medication Sig Dispense Refill ??? triamcinolone (KENALOG) 0.1 % Ointment Apply scant amount topically to affected area daily untilsymptoms resolve. Then decrease to every other day, then 1-2 times/ week. 15 g 0 ??? rOPINIRole (REQUIP) 0.5 mg Tablet Take 3 tablets by mouth nightly. 270 tablet 3 ??? esomeprazole (NEXIUM) 40 mg Capsule, Delayed Release(E.C.) Take 1 capsule by mouth daily. Take 30 minutes before dinner. 30 capsule 12 ??? FLUoxetine (PROZAC) 20 mg Tablet Take 1 tablet by mouth daily. 30 tablet 12 ??? ranitidine (ZANTAC) 150 mg Capsule [...] 6-8 weeks. (Patient not taking: Reported on 03/11/2017) 15 g 0 ??? oxybutynin (DITROPAN-XL) 5 [...] R94.6 ??? Gastroesophageal reflux K21.9 OBJECTIVE: Vitals: 03/11/17 1044 BP: 120/66 BP Location (NBP): Left arm Patient Position: Sitting BP Cuff Sizes: Adult (25-34 cm) Pulse: 65 Temp: 36.9 ??C (98.5 ??F) TempSrc: Oral SpO2: 98% Weight: 53.4 kg (117 lb 12.8 oz) Height: 154.9 cm (5' 1) PHYSICAL EXAM: Physical Exam Constitutional: She is oriented to person, place, and time. She appears well- developed and well-nourished. No distress. HENT: Head: Normocephalic and atraumatic. Pulmonary/Chest: Effort normal. Neurological: She is alert and oriented to person, place, and time. Psychiatric: She has a normal mood and affect. Her speech is normal and behavior is normal. Judgmentand thought content normal. Cognition and memory are normal. Vitals reviewed. ASSESSMENT & PLAN: Elida was seen today for other. Diagnoses and all orders for this visit: Adjustment disorder with mixed anxiety and depressed mood - patient doing well. Will continue on his current dose of medications. - FLUoxetine (PROZAC) 20 mg Tablet; Take 1 tablet by mouth daily. documented in this encounter Plan of Treatment Not on filedocumented as of this encounter Visit Diagnoses Diagnosis Adjustment disorder with mixed anxiety a nd depressed mood documented in this encounter Care Teams Brazing Machine Operator Relationship Specialty Start Date End Date Allison Granados APRN PCP - General 04/22/14 06/27/21 [facility] [place] [address] documented as of this encounter
--- OUTSIDE RECORDS SUMMARY | 2021-12-28 04:09 | XMS_ITS | Encounter Summary ---
:1950 Author Organization [facility] [place] [address] Care Team Providers Name Role Phone Allison Granados APRN Primary Care Provider [phone] Reason for Visit Reason Comments Medication Refill Encounter Details Date Type Department Care Team Description 04/11/2018 Refill Internal Medicine at [place] Allison Murphy, DATABASE ADMINISTRATION MANAGER Road [facility] [address] Gutierrez [facility] [place] [address] RD [phone] [place], [place] [address] (Wo rk) Social History Tobacco [...] on filedocumented in this encounter Care Teams Manager Services Relationship Specialty Start Date End Date Allison Granados APRN PCP - General 04/22/14 06/27/[address] [facility] [address] [place] [address] documented as of this encounter
--- OUTSIDE RECORDS SUMMARY | 2021-12-28 04:09 | XMS_ITS | Encounter Summary ---
:1950 Author Organization [facility] [place] [address] Care Team Providers Name Role Phone Allison Granados APRN Primary Care Provider [phone] Reason for Visit Reason Onset Date Comments Medication Problem 01/30/2017 Pharmacy call Encounter Details Date Type Department Care Team Description 01/30/2017 Telephone Internal Medicine at [facility]wia Woodard Wy dication Problem [address] (Pharmacy call) [address] [place] [id number] Social History Tobacco Use Types Packs/Day Years Used Date Never Smoker Smokeless Tobacco: Never Used Alcohol Use Standard Drinks/Week Comments No 0 (1 standard drink = 0.6 oz pure alcoho l) Sex Assigned at Date Recorded Not on file documented as of this encounter Miscellaneous Notes Telephone Encounter - Corin Mclean RN - 01/30/2017 2:33 PM EDT Pharmacy referring to Proair. oCoper corrected the order to q4hr prn. Telephone Encounter - Sylwia Woodard - 01/30/2017 2:22 PM EDT Message: Pharmacy needs to medication directions to read every 4 to 6 hours as needed for insurance reasons. Please resend new directions. Caller and relationship (if other than patient-full name): Pharmacy Scott Best time to call back: any Ok to leave a message: [yes] Ok to send my- message: [] Offered Appointment: n Nurse contacted via: Message: y Call: n Pager: n documented in this encounter Plan of Treatment Not on filedocumented as of this encounter Visit Diagnoses Not on filedocumented in this encounter Care Teams Bedspread Cutter Relationship Specialty Start Date End Date Allison Granados APRN PCP - General 04/22/14 06/27/21 [facility] [address] [place] [address] documented as of this encounter
--- OUTSIDE RECORDS SUMMARY | 2021-12-28 04:09 | XMS_ITS | Encounter Summary ---
:1950 Author Organization [facility] Address [address] [place] [address] Care Team Providers Name Role Phone Allison Granados APRN Primary Care Provider [phone] Reason for Visit Reason Comments Annual Wellness Visit Encounter Details Date Type Department Care Team Description 05/14/2017 Office Visit Internal Medicine Allison Granados are annual wellness visit, subsequent (Primary Dx); at [facility] SOILA Rain Gastroesophageal reflux disease, esophag itis presence not specified; [address] [place] [address] MEDICAL Fatigue, unspe cified type; [facility] [address] Hypothyroidism, unspecified type; [place] [address] GENERAL INTERNAL Low ferritin [phone] [facility], [place] [address] Social History Tobacco Use Types [...] Sign Reading Time Taken Comments Blood Pressure 104/63 05/14/2017 7:56 AM EST Pulse 61 05/14/2017 7:56 AM EST Temperature - - Respiratory Rate - - Oxygen Saturation 98% 05/14/2017 7:56 AM EST Inhaled Oxygen Concentration - - Weight 53.1 kg (117 lb) 05/14/2017 7:56 AM EST Height 154.9 cm (5' 1) 05/14/2017 7:56 AM EST Body Mass Index 22.11 05/14/2017 7:56 AM EST documented in this encounter Patient Instructions Patient InstructionsLamalissaAllison shannon W, COMSEC MANAGER - 05/14/2017 8:35 AM EST Images from the original note were not included. Well Visit, Over 65: Care Instructions Your Care Instructions Physical exams can help you stay healthy. Your doctor has checked your overall health and may have suggested ways to take good care of yourself. He or she also may have recommended tests. At home, you can help prevent illness with healthy eating, regular exercise, and other steps. Follow-up care is a camacho part of your treatment and safety. Be sure to make and go to all appointments, and call your doctor if you are having problems. It's also a good idea to know your test results and keep a list of the medicines you take. How can you care for yourself at home? ?? Reach and stay at a healthy weight. This will lower your risk for many problems, such as obesity,diabetes, heart disease, and high blood pressure. ?? Get at least 30 minutes of exercise on most days of the week. Walking is a good choice. You also may want to do other activities, such as running, swimming, cycling, or playing tennis or team sports. ?? Do not smoke. Smoking can make health problems worse. If you need help quitting, talk to your doctor about stop-smoking programs and medicines. These can increase your chances of quitting for good. ?? Protect your skin from too much sun. When you're outdoors from 10 a.m. to 4 p.m., stay in the shade or cover up with clothing and a hat with a wide brim. Wear sunglasses that block UV rays. Even when it's cloudy, put broad-spectrum sunscreen (SPF 30 or higher) on any exposed skin. ?? See a dentist one or two times a year for checkups and to have your teeth cleaned. ?? Wear a seat belt in the car. ?? Limit alcohol to 2 drinks a day for men and 1 drink a day for women. Too much alcohol can cause health problems. Follow your doctor's advice about when to have certain tests. These tests can spot problems early. For men and women ?? Cholesterol. Your doctor will tell you how often to have this done based on your overall health and other things that can increase your risk for heart attack and stroke. ?? Blood pressure. Have your blood pressure checked during a routine doctor visit. Your doctor will tell you how often to check your blood pressure based on your age, your blood pressure results, and other factors. ?? Diabetes. Ask your doctor whether you should have tests for diabetes. ?? Vision. Experts recommend that you have yearly exams for glaucoma and other age-related eye problems. ?? Hearing. Tell your doctor if you notice any change in your hearing. You can have tests to find out how well you hear. ?? Colon cancer tests. Keep having colon cancer tests as your doctor recommends. You can have one ofseveral types of tests. ?? Heart attack and stroke risk. At least every 4 to 6 years, you should have your risk for heart attack and stroke assessed. Your doctor uses factors such as your age, blood pressure, cholesterol, andwhether you smoke or have diabetes to show what your risk for a heart attack or stroke is over the next 10 years. ?? Osteoporosis. Talk to your doctor about whether you should have a bone density test to find out whether you have thinning bones. Also ask your doctor about whether you should take calcium and vitamin D supplements. For women ?? Pap test and pelvic exam. You may no longer need a Pap test. Talk with your doctor about whether to stop or continue to have Pap tests. ?? Breast exam and mammogram. Ask how often you should have a mammogram, which is an X-ray of your breasts. A mammogram can spot breast cancer before it can be felt and when it is easiest to treat. ?? Thyroid disease. Talk to your doctor about whether to have your thyroid checked as part of a regular physical exam. Women have an increased chance of a thyroid problem. For men ?? Prostate exam. Talk to your doctor about whether you should have a blood test (called a PSA test)for prostate cancer. Experts disagree on whether men should have this test. Some experts recommend that you discuss the benefits and risks of the test with your doctor. ?? Abdominal aortic aneurysm. Ask your doctor whether you should have a test to check for an aneurysm. You may need a test if you ever smoked or if your parent, brother, sister, or child has had an aneurysm. When should you call for help? Watch closely for changes in your health, and be sure to contact your doctor if you have any problems or symptoms that concern you. Where can you learn more? Visit our health information library at http://[employer]opious [email or web address]. You can also view health information on [employer], your personal patient account. Log in or sign up today. Enter K859 in the search box to learn more about Well Visit, Over 65: Care Instructions. Current as of: November 15, 2016 Content Version: 11.4 ?? [id number] [employer]. Care instructions adapted under license by [facility]. If you have questions about a medical condition or this instruction, always ask your healthcare professional. [employer] disclaims any warranty or liability for your use of this information. documented in this encounter Progress Notes Allison Granados APRN - 05/14/2017 8:00 AM EST Ms. Elida Montez, a 66 y.o. female, presents today for a Medicare Annual Wellness Visit. Self assessment of Health Status: Fatigue- she has been more tired recently. She has been taking the iron tablets intermittently. She reports that she will get up and do her chores, and then she will feel tired in the afternoon. She feels that she wants to take a nap and will lay down and rest. She reports that it has been ongoing fora couple of months. RLS- has increased to 4 tablets nightly. She reports that the dose is increased. 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 She reports that it is not stressful and only 4 days per week. GERD- on zantac and nexium. She reports that it is better now on both medications. Constipation- Is taking digestive advantage OTC and that is helping with her bowels. Miralax did nothelp in the past. Review of Systems Constitutional: Negative for chills, fever and unexpected weight change. Respiratory: Positive for cough (uses inhaler in the morning, but not otherwise). Negative for shortness of breath. Cardiovascular: Positive for palpitations (on occasion, not new). Negative for chest pain. Gastrointestinal: Positive for constipation. Musculoskeletal: Negative for arthralgias. Neurological: Positive for headaches. Negative for dizziness and light-headedness. Other providers: none Suppliers: none Home Safety: ([place] and smoke detectors) yes Hearing difficulty: yes- sometimes difficulty hearing people; not concerned to need testing at this time. Memory issues (mini-cog score no concern at this time): no Advanced directives: has form, not complete. Health Risk Assessment (HRA): Annual Wellness Visit Responses: myD-H Annual Wellness Visit Responses 05/14/2017 Health in general Good Quality of life Good Physical health Good Mental health Good Satisfaction with social activities Good Ability to carry out social activities Good Ability to carry out physical activities Completely Bothered by emotional problems Rarely Rate of fatigue Severe Rate of pain 4 PROMIS-10 Physical Health Score 42.3 PROMIS-10 Mental Health Score 45.8 Activity - low level (Bathing, Dressing, Eating, Mobility, Using toilet, Grooming) No, I do not havedifficulty with these activities Activity - high level (Laundry, Housekeeping, Banking, Shopping, Use phone, Food Prep, Transportation, Taking meds) I do not need any help Fallen in last year No Difficulties with balance or walking No Little interest or pleasure Not at all [...] days Time spent on vigorous physical activity 90 minutes or more 10 mins of moderate physical activity 7 days Time spent on moderate physical activity 90 minutes or more Eat Fruit 3 - 5 times per week Eat Vegetables 1 - 3 times per day Eat Peanut Butter 1 - 3 times per day Eat Nuts and Seeds Never Eat Tuna or Other Dark Meat Fish 1 - 2 times per month Take Supplements Never Wear Seatbelt Always Tooth or Mouth Problems No Urinary Incontinence Yes Sexually active Yes Live Alone No School Some college or technical school Employment Status Currently working Hours per week Less than 20 hours Combined Household Income $15,000 to less than $20,000 # People Supported 2 Who is taking survey I am (patient) Past/Family/Social History/Medications and Allergies reviewed and/or documented below. BP 104/63 Pulse 61 Ht 154.9 cm (5' 1) Wt 53.1 kg (117 lb) SpO2 98% BMI 22.11 kg/m2 Patient reported measures: Pain:3 Physical Health:Good Fall: Wt Readings from Last 3 Encounters: 05/14/17 53.1 kg (117 lb) 04/02/17 54.1 kg (119 lb 3.2 oz) 03/11/17 53.4 kg (117 lb 12.8 oz) Hearing assessment (whisper test, rubbing fingers): normal Physical Exam Constitutional: She is oriented to [...] no distension and no mass. There is tenderness (epigastric had some pressure). There is no rebound and no guarding. Musculoskeletal: Normal range of motion. Lymphadenopathy: She has no cervical adenopathy. Neurological: She is alert and oriented to person, place, and time. Skin: Skin is warm and dry. No rash noted. Psychiatric: She has a normal mood and affect. Her behavior is normal. Judgment and thought content normal. Assessment/Plan: Ms. Montez was seen today for a Medicare Annual Wellness Visit. In conclusion, we discussed the following: Elida was seen today for annual wellness visit. Diagnoses and all orders for this visit: Medicare annual wellness visit, subsequent - will give copies of advance directive today. - she is having increased fatigue, will do labs to evaluate. She does have history of low ferritin levels in past, taking iron occasionally, will recheck. - no other associated symptoms, will have her monitor if labs are normal and let us know if she develops new or different symptoms. Patient in agreement with the plan. Gastroesophageal reflux disease, esophagitis presence not specified Fatigue, unspecified type - CBC (with Diff); Future - Iron and TIBC; Future - Ferritin; Future - Comprehensive metabolic panel (non-fasting); Future - CBC (with Diff) - Iron and TIBC - Ferritin - Comprehensive metabolic panel (non-fasting) - Hemogram - Differential, Automated Hypothyroidism, unspecified type - Iron and TIBC; Future - Ferritin; Future - TSH; Future - Iron and TIBC - Ferritin - TSH Low ferritin - Iron and TIBC; Future - Ferritin; Future - Iron and TIBC - Ferritin 1. SCREENING SCHEDULE & IMMUNIZATIONS - Health Maintenance Topic Date Due ??? Advance Directive 09/12/2003 ??? Tetanus vaccine 09/16/2018 ??? Colonoscopy 12/29/2018 ??? Breast Cancer Screening 04/25/2019 ??? Pneumo vaccine (65+) Completed ??? Bone Density,female 65+ Completed ??? Hepatitis C Screening Completed ??? Influenza (Flu) vaccine Completed ??? Tdap adult Completed ??? Zoster vaccine Completed 2. RISK FACTORS (including any positives from HRA) and 3. PERSONALIZED HEALTH ADVICE - [x] A copy of the Risk Factors and Personalized Health Advice and Health Maintenance List was copiedto the patient's After Visit Summary. documented in this encounter Plan of Treatment Not on filedocumented as of this encounter Procedures Procedure Name Priority Date/Time Associated Comments Diagnosis HEMOGRAM Routine 05/14/2017 8:45 AM Fatigue, Results f or this EST unspecified type procedure a re in the results section. DIFFERENTIAL, Routine 05/14/2017 8:45 AM Fatigue, Results for this AUTOMATED EST unspecified type procedure a re in the results section. IRON AND TIBC Routine 05/14/2017 8:45 AM Fatigue, Results for this EST unspecified type procedure are in Hypothyroidism, the results unspecified type section. Low ferritin CBC (WITH DIFF) Routine 05/14/2017 8:45 AM Fatigue, EST unspecified type TSH Routine 05/14/2017 8:45 AM Hypothyroidism, Result s for this EST unspecified type procedure a re in the results section. FERRITIN Routine 05/14/2017 8:45 AM Fatigue, Results f or this EST unspecified type procedure are in Hypothyroidism, the results unspecified type section. Low ferritin COMPREHENSIVE Routine 05/14/2017 8:45 AM Fatigue, Results for this METABOLIC PANEL EST unspecified type procedur e are in (NON-FASTING) the results section. documented in this encounter Results (ABNORMAL) Differential, Automated (05/14/2017 8:45 AM EST) [facility] gist Method Time Signature Neutrophils % 51.2 % [facility] Neutr Abs (ANC) 3.48 1.70 - [facility] 6.10 [facility] x10(3)/[facility] LABORATORY Lymphocytes % 27.7 % [facility] Lymphocytes Abs 1.9 0.9 - 3.2 [facility] x10(3)/[facility] LABORATORY Monocytes % 16.5 % [facility] Monocyte Abs 1.1 (H) 0.3 - 0.9 [facility] x10(3)/[facility] LABORATORY Eosinophils % 2.7 % [facility] Eosinophils Abs 0.2 0.0 - [address].4 [facility] x10(3)/[facility] LABORATORY Basophils % 1.5 % [facility] Basophils Abs 0.1 0.0 - [address] [facility] x10(3)/[facility] LABORATORY Immature Gran % 0.40 % [facility] Comment: Immature granulocytes(IG's)percentage an d absolute count will include metamyelocytes, myelocytes, and promyelo cytes. Blood smears from CBCs yielding IG's will be scanned manually for concor dance. If this scan disagrees with the automated IG or if promyelocytes are not ed, a manual differential will be performed. Zena Gran Abs 0.03 0.00 - 0.04 x10(3)/[facility] Specimen Anatomical Collection Method Collection Time Receive d Time (Source) Location / / Volume Laterality Blood specimen 05/14/2017 8:45 AM 017 1:04 (specimen) EST PM EST Resulting Agency Comment Spec In Lab Allison Granados APRN HEMATOLOGY ORDERABLES Performing Organization Address City/State/ZIP [place] [address] Hemogram (05/14/2017 8:45 AM EST) P athologist Signature WBC 6.8 4.0 - 9.5 [facility] x10(3)/[facility] LABORATORY RBC 4.97 4.00 - [facility] 5.21 [facility] x10(6)/[facility] LABORATORY Hemoglobin 14.7 11.7 - [facility] 15.5 gm/dL [facility] Hematocrit 44.6 35.7 - [facility] 45.8 % [facility] MCV 89.7 82.6 - [facility] 94.4 [facility] LABORATORY MCH 29.6 27.1 - [facility] 32.0 pg [facility] MCHC 33.0 31.7 - [facility] 35.0 gm/dL [facility] Platelets 308 145 - 357 [facility] x10(3)/[facility] LABORATORY RDWSD 42.7 37.0 - [facility] 46.0 [facility] LABORATORY RDWCV 13.0 11.5 - [facility] 14.1 % [facility] LABORATORY MPV 10.3 7.6 - 12.9 [facility] LABORATORY nRBC % Auto 0.0 % [facility] nRBC Abs Auto 0.000 0.000 - [facility] 0.000 [facility] x10(3)/[facility] LABORATORY Specimen Anatomical Collection Method Collection Time Receive d Time (Source) Location / / Volume Laterality Blood specimen 05/14/2017 8:45 AM 017 1:04 (specimen) EST PM EST Resulting Agency Comment Spec In Lab Allison Granados APRN HEMATOLOGY ORDERABLES Performing Organization Address City/State/ZIP Code Phon e Number [address] TSH (05/14/2017 8:45 AM EST) athologist Signature TSH 2.88 0.27 - 4.20 [facility] mlU/ML [facility] Specimen Anatomical Collection Method Collection Time Receive d Time (Source) Location / / Volume Laterality Blood specimen 05/14/2017 8:45 AM 017 1:04 (specimen) EST PM EST Resulting Agency Comment Spec In Lab Allison Granados APRN CHEMISTRY ORDERABLES Performing Organization Address City/[facility]/ZIP Code Phon e Number [address] (ABNORMAL) Comprehensive metabolic panel (non-fasting) (05/14/2017 8:45 AM EST) athologist Signature Glucose Lvl 91 65 - [address] [facility] mg/dL [facility] Comment: Diabetes: >=200 mg/dL plus symp toms BUN 18 8 - 18 mg/dL [facility] Creatinine 0.58 (L) 0.70 - 1.20 mg/dL [facility] Sodium 140 135 - 145 mmol/L [facility] Potassium 4.0 3.5 - 5.0 mmol/L [facility] Comment: Please note: ??Patients with WBC >100,00 0 may have falsely elevated Potassium levels. ??For accurate Potassium quantif ication in these patients send serum separator tube (gold top) for subsequent determinations. ??Contact the Clinical Chemistry Laboratory if there are any qu estions. Chloride 103 98 - 107 mmol/L [facility] CO2 25 22 - 31 mmol/L [facility] Anion Gap 12 5 - 15 mmol/L [facility] Calcium 8.7 8.5 - 10.5 mg/dL [facility] Total Protein 6.7 6.1 - 8.0 gm/dL [facility] Albumin 4.2 3.2 - 5.2 gm/dL [facility] AST 16 0 - 30 unit/L [facility] ALT 19 0 - 30 unit/L [facility] Alk Phos 60 40 - 104 unit/L [facility] Total Bilirubin 0.6 0.2 - 1.3 mg/dL [facility] Estimated GFR >60 >=60 [facility] Comment: The reported eGFR should be multiplied b y 1.2 for patients. The MDRD is not an appropriate measure o f renal function for patients with body mass extremes or in patients with acute kidney failure. http://Zencoder/DHnkdep http://Zencoder/[email or web address] PAWHUSKAnkf Specimen Anatomical Collection Method Collection Time Receive d Time (Source) Location / / Volume Laterality Blood specimen 05/14/2017 8:45 AM 017 1:04 (specimen) EST PM EST Resulting Agency Comment Spec In Lab Allison Rain Roberta CM CHEMISTRY ORDERABLES Performing Organization Address City/[facility]/ZIP Code Phon e Number [address] Ferritin (05/14/2017 8:45 AM EST) athologist Signature Ferritin 129 30 - 400 DIXIE CORKY ng/mL [facility] Comment: Pediatric reference ranges not verified at [facility], interpret with caution. Reference ranges for females greater celine n 50 years of age approach values for men, i.e., 30-400 ng/mL. Specimen Anatomical Collection Method Collection Time Receive d Time (Source) Location / / Volume Laterality Blood specimen 05/14/2017 8:45 AM 017 1:04 (specimen) EST PM EST Resulting Agency Comment Spec In Lab Allison Rain Lacasse COMSEC MANAGER CHEMISTRY ORDERABLES Performing Organization Address City/[facility]/ZIP Code Phon e Number [address] Iron and TIBC (05/14/2017 8:45 AM EST) athologist Signature Iron 91 30 - 150 DIXIE CORKY mcg/dL [facility] TIBC 280 250 - 450 [facility] mcg/dL [facility] Iron Saturation 32 20 - 50 % [facility] Specimen Anatomical Collection Method Collection Time Receive d Time (Source) Location / / Volume Laterality Blood specimen 05/14/2017 8:45 AM 017 1:04 (specimen) EST PM EST Resulting Agency Comment Spec In Lab Allison Granados APRN CHEMISTRY ORDERABLES Performing Organization Address City/State/ZIP [place] [address] documented in this encounter Visit Diagnoses Diagnosis Medicare annual wellness visit, subseque nt - Primary Routine general medical examination at a health care facility Gastroesophageal reflux disease, esophag itis presence not specified Fatigue, unspecified type Hypothyroidism, unspecified type Low ferritin Other nonspecific findings on examinatio n of blood documented in this encounter Care Teams Separator Operator [employer] Relationship Specialty Start Date End Date Allison Granados APRN PCP - General 04/22/14 06/27/[address] [facility] [address] [place] [address] documented as of this encounter
--- OUTSIDE RECORDS SUMMARY | 2021-12-28 04:09 | XMS_ITS | Encounter Summary ---
:1950 Author Organization [facility] [place] [address] Care Team Providers Name Role Phone Allison Granados APRN Primary Care Provider [phone] Reason for Visit Reason Onset Date Comments Medication Refill 05/16/2017 Encounter Details Date Type Department Care Team Description 05/16/2017 Refill Internal Medicine at [facility] Doris Nino [address] [place] [address] [id number] Social History Tobacco Use Types Packs/Day Years [...] encounter Miscellaneous Notes Telephone Encounter - Doris Nino - 05/16/2017 1:25 PM EST Patient states this is suppose to be for 4 tablets nightly.please send over documented in this encounter Plan of Treatment Not on filedocumented as of this encounter Visit Diagnoses Not on filedocumented in this encounter Care Teams Customs Appraiser Relationship Specialty Start Date End Date Allison Granados APRN PCP - General 04/22/14 06/27/[address] [facility] [address] R[facility] [place] [id number] documented as of this encounter
--- OUTSIDE RECORDS SUMMARY | 2021-12-28 04:09 | XMS_ITS | Encounter Summary ---
:1950 Author Organization [facility] Address [facility] [place] [address] Care Team Providers Name Role Phone Allison Granados APRN Primary Care Provider [phone] Reason for Visit Reason Comments Gastroesophageal Reflux was seen in ER for acid refl ex was given carafate suspension Encounter Details Date Type Department Care Team Description 08/30/2016 [facility] [address], SOILA unspecified joint [address] [facility] (Primary Dx) [place] [address] GENERAL INTERNAL [phone] [address] [place], [place] [address] (Wo rk) Social History Tobacco Use Types Packs/Day Years Used Date Never Smoker Smokeless Tobacco: Never Used Alcohol Use Standard Drinks/Week Comments No 0 (1 standard drink = 0.6 oz pure alcoho l) Sex Assigned at Date Recorded Not on file documented as of this encounter Last Filed Vital Signs Vital Sign Reading Time Taken Comments Blood Pressure 118/69 08/30/2016 9:29 AM EST Pulse 59 08/30/2016 9:29 AM EST Temperature - - Respiratory Rate - - Oxygen Saturation 99% 08/30/2016 9:29 AM EST Inhaled Oxygen Concentration - - Weight 53.8 kg (118 lb 9.6 oz) 08/30/2016 9:29 AM EST Height 154.9 cm (5' 1) 08/30/2016 9:29 AM EST Body Mass Index 22.41 08/30/2016 9:29 AM EST documented in this encounter Patient Instructions Patient InstructionsPayalAllison jackson, PROFESSIONAL DEVELOPMENT DIRECTOR - 08/30/2016 10:56 AM EST Images from the original note were not included. [facility] Trochanteric Bursitis: Exercises Your Care Instructions Here [...] stretch down the back of your leg. ?? Do not arch your back. ?? Do not bend either knee. ?? Keep one heel touching the floor and the other heel touching the wall. Do not point your toes. 3. Hold the stretch for at least 1 minute to begin. Then try to lengthen the time you hold the stretch to as long as 6 minutes. 4. Repeat 2 to 4 times. If you do not have a place to do this exercise in a doorway, there is another way to do it: 1. Lie on your back, and bend the knee of your affected leg. 2. Loop a towel under the ball and toes of that foot, and hold the ends of the towel in your hands. 3. Straighten your knee, and slowly pull back on the towel. You should feel a gentle stretch down the back of your leg. 4. Hold the stretch for 15 to 30 seconds. Or even better, hold the stretch for 1 minute if you can. 5. Repeat 2 to 4 times. Straight-leg raises [...] 4. Repeat 2 to 4 times. Double etsp-hj-[id number] 1. Lie on your back with your [...] more? Visit our health information library at [email or web address] You can also view health information on [employer], your personal patient account. Log in or sign up today. Enter N503 in the search box to learn more about Trochanteric Bursitis: Exercises. ?? [id number] [employer]. Care instructions adapted under license by [facility]. This care instruction is for use with your licensed healthcare professional. If you have questionsabout a medical condition or this instruction, always ask your healthcare professional. [employer] disclaims any warranty or liability for your use of this information. Content Version: 11.0.442119; Current as of: November 27, 2015 [facility] Rotator Cuff: Exercises Your Care Instructions Here are some examples of typical rehabilitation exercises for your condition. Start each exercise slowly. Ease off the exercise if you start to have pain. Your doctor or physical therapist will tell you when you can start these exercises and which ones will work best for you. How to do the exercises Pendulum swing Note: If you have pain in your back, do not do this exercise. 1. Hold on to a table or the back of a chair with your good arm. Then bend forward a little and let your sore arm hang straight down. This exercise does not use the arm muscles. Rather, use your legs and your hips to create movement that makes your arm swing freely. 2. Use the movement from your hips and legs to guide the slightly swinging arm back and forth like apendulum (or elephant trunk). Then guide it in circles that start small (about the size of a dinner plate). Make the circles a bit larger each day, as your pain allows. 3. Do this exercise for 5 minutes, 5 to 7 times each day. 4. As you have less pain, try bending over a little farther to do this exercise. This will increase the amount of movement at your shoulder. Posterior stretching exercise 6. Hold the elbow of your injured arm with your other hand. 7. Use your hand to pull your injured arm gently up and across your body. You will feel a gentle stretch across the back of your injured shoulder. 8. Hold for at least 15 to 30 seconds. Then slowly lower your arm. 9. Repeat 2 to 4 times. Up-the-back stretch Note: Your doctor or physical therapist may want you to wait to do this stretch until you have regained most of your range of motion and strength. You can do this stretch in different ways. Hold any ofthese stretches for at least 15 to 30 seconds. Repeat them 2 to 4 times. 6. Put your hand in your back pocket. Let it rest there to stretch your shoulder. 7. With your other hand, hold your injured arm (palm outward) behind your back by the wrist. Pull your arm up gently to stretch your shoulder. 8. Next, put a towel over your other shoulder. Put the hand of your injured arm behind your back. Now hold the back end of the towel. With the other hand, hold the front end of the towel in front of your body. Pull gently on the front end of the towel. This will bring your hand farther up your back tostretch your shoulder. Overhead stretch 6. Standing about an arm's length away, grasp onto a solid surface. You could use a countertop, a doorknob, or the back of a sturdy chair. 7. With your knees slightly bent, bend forward with your arms straight. Lower your upper body, and let your shoulders stretch. 8. As your shoulders are able to stretch farther, you may need to take a step or two backward. 9. Hold for at least 15 to 30 seconds. Then stand up and relax. If you had stepped back during your stretch, step forward so you can keep your hands on the solid surface. 10. Repeat 2 to 4 times. Shoulder flexion (lying down) Note: To make a wand for this exercise, use a piece of PVC pipe or a broom handle with the broom removed. Make the wand about a foot wider than your shoulders. 6. Lie on your back, holding a wand with both hands. Your palms should face down as you hold the wand. 7. Keeping your elbows straight, slowly raise your arms over your head. Raise them until you feel a stretch in your shoulders, upper back, and chest. 8. Hold for 15 to 30 seconds. 9. Repeat 2 to 4 times. Shoulder rotation (lying down) Note: To make a wand for this exercise, use a piece of PVC pipe or a broom handle with the broom removed. Make the wand about a foot wider than your shoulders. 5. Lie on your back. Hold a wand with both hands with your elbows bent and palms up. 6. Keep your elbows close to your body, and move the wand across your body toward the sore arm. 7. Hold for 8 to 12 seconds. 8. Repeat 2 to 4 times. Wall climbing (to the side) Note: Avoid any movement that is straight to your side, and be careful not to arch your back. Your arm should stay about 30 degrees to the front of your side. 6. Stand with your side to a wall so that your fingers can just touch it at an angle about 30 degrees toward the front of your body. 7. Walk the fingers of your injured arm up the wall as high as pain permits. Try not to shrug your shoulder up toward your ear as you move your arm up. 8. Hold that position for a count of at least 15 to 20. 9. Walk your fingers back down to the starting position. 10. Repeat at least 2 to 4 times. Try to reach higher each time. Wall climbing (to the front) Note: During this stretching exercise, be careful not to arch your back. 1. Face a wall, and stand so your fingers can just touch it. 2. Keeping your shoulder down, walk the fingers of your injured arm up the wall as high as pain permits. (Don't shrug your shoulder up toward your ear.) 3. Hold your arm in that position for at least 15 to 30 seconds. 4. Slowly walk your fingers back down to where you started. 5. Repeat at least 2 to 4 times. Try to reach higher each time. Shoulder blade squeeze 1. Stand with your arms at your sides, and squeeze your shoulder blades together. Do not raise your shoulders up as you squeeze. 2. Hold 6 seconds. 3. Repeat 8 to 12 times. Scapular exercise: Arm reach 1. Lie flat on your back. This exercise is a very slight motion that starts with your arms raised (elbows straight, arms straight). 2. From this position, reach higher toward the caity or ceiling. Keep your elbows straight. All motionshould be from your shoulder blade only. 3. Relax your arms back to where you started. 4. Repeat 8 to 12 times. Arm raise to the side Note: During this strengthening exercise, your arm should stay about 30 degrees to the front of yourside. 1. Slowly raise your injured arm to the side, with your thumb facing up. Raise your arm 60 degrees at the most (shoulder level is 90 degrees). 2. Hold the position for 3 to 5 seconds. Then lower your arm back to your side. If you need to, bring your good arm across your body and place it under the elbow as you lower your injured arm. Use your good arm to keep your injured arm from dropping down too fast. 3. Repeat 8 to 12 times. 4. When you first start out, don't hold any extra weight in your hand. As you get stronger, you may use a 1-pound to 2-pound dumbbell or a small can of food. Shoulder flexor and extensor exercise Note: These are isometric exercises. That means you contract your muscles without actually moving. ?? Push forward (flex): Stand facing a wall or doorjamb, about 6 inches or less back. Hold your injured arm against your body. Make a closed fist with your thumb on top. Then gently push your hand forward into the wall with about 25% to 50% of your strength. Don't let your body move backward as you push. Hold for about 6 seconds. Relax for a few seconds. Repeat 8 to 12 times. ?? Push backward (extend): Stand with your back flat against a wall. Your upper arm should be against the wall, with your elbow bent 90 degrees (your hand straight ahead). Push your elbow gently back against the wall with about 25% to 50% of your strength. Don't let your body move forward as you push.Hold for about 6 seconds. Relax for a few seconds. Repeat 8 to 12 times. Scapular exercise: Wall push-ups Note: This exercise is best done with your fingers somewhat turned out, rather than straight up and down. 1. Stand facing a wall, about 12 inches to [address] your hands on the wall at shoulder height. 3. Slowly bend your elbows and bring your face to the wall. Keep your back and hips straight. 4. Push back to where you started. 5. Repeat 8 to 12 times. 6. When you can do this exercise against a wall comfortably, you can try it against a counter. You can then slowly progress to the end of a couch, then to a sturdy chair, and finally to the floor. Scapular exercise: Retraction Note: For this exercise, you will need elastic exercise material, such as surgical tubing or Thera-Band. 1. Put the band around a solid object at about waist level. (A bedpost will work well.) Each hand should hold an end of the band. 2. With your elbows at your sides and bent to 90 degrees, pull the band back. Your shoulder blades should move toward each other. Then move your arms back where you started. 3. Repeat 8 to 12 times. 4. If you have good range of motion in your shoulders, try this exercise with your arms lifted out to the sides. Keep your elbows at a 90-degree angle. Raise the elastic band up to about shoulder level. Pull the band back to move your shoulder blades toward each other. Then move your arms back where you started. Internal rotator strengthening exercise 1. Start by tying a piece of elastic exercise material to a doorknob. You can use surgical tubing orThera-Band. 2. Stand or sit with your shoulder relaxed and your elbow bent 90 degrees. Your upper arm should rest comfortably against your side. Squeeze a rolled towel between your elbow and your body for comfort.This will help keep your arm at your side. 3. Hold one end of the elastic band in the hand of the painful arm. 4. Slowly rotate your forearm toward your body until it touches your belly. Slowly move it back to where you started. 5. Keep your elbow and upper arm firmly tucked against the towel roll or at your side. 6. Repeat 8 to 12 times. External rotator strengthening exercise 1. Start by tying a piece of elastic exercise material to a doorknob. You can use surgical tubing orThera-Band. (You may also hold one end of the band in each hand.) 2. Stand or sit with your shoulder relaxed and your elbow bent 90 degrees. Your upper arm should rest comfortably against your side. Squeeze a rolled towel between your elbow and your body for comfort.This will help keep your arm at your side. 3. Hold one end of the elastic band with the hand of the painful arm. 4. Start with your forearm across your belly. Slowly rotate the forearm out away from your body. Keep your elbow and upper arm tucked against the towel roll or the side of your body until you begin to feel tightness in your shoulder. Slowly move your arm back to where you started. 5. Repeat 8 to 12 times. Follow-up care [...] more? Visit our health information library at [email or web address] You can also view health information on [employer], your personal patient account. Log in or sign up today. Enter J005 in the search box to learn more about Rotator Cuff: Exercises. ?? [id number] [employer]. Care instructions adapted under license by [facility]. This care instruction is for use with your licensed healthcare professional. If you have questionsabout a medical condition or this instruction, always ask your healthcare professional. [employer] disclaims any warranty or liability for your use of this information. Content Version: 11.0.522287; Current as of: November 27, 2015 documented in this encounter Progress Notes Allison Granados APRN - 08/30/2016 9:40 AM EST PCP: Allison Granados APRN Chief Complaint Patient presents with ??? Gastroesophageal Reflux was seen in ER for acid reflex was given carafate suspension SUBJECTIVE: Elida Montez is a 65 y.o. female who presents for follow up for GERD. She was seen in the ER for chest pain at [facility]. Symptoms improved with GI cocktail. EKG was fine per report and cardiac enzymes were negative. - she did have an endoscopy in December of 2015 that was unremarkable. They started her on sucralfate inaddition the the nexium to treat the GERD symptoms. - she has had some pain in both shoulders and her lateral right him. She reports that it will ache in the anterior groin area. - she reports that she has felt nausea after eating. She reports that she has not been eating as much recently. She states that her stomach feels worse after she eats. - She reports that she was sleeping and it woke her up. She reports that usually when she has the severe pain it is in the evening, but does not wake her up. Review of Systems Constitutional: Negative for chills, fatigue and fever. Cardiovascular: Positive for chest pain (she has not had it since she was seen at ER. ). Neurological: Negative for dizziness and light-headedness. Allergies Allergen [...] minutes before dinner. 30 capsule 12 ??? albuterol (PROVENTIL HFA;VENTOLIN HFA;PROAIR) 90 mcg/actuation HFA Aerosol Inhaler Inhale 2 puffs into the lungs as needed. Use with spacer 1 Inhaler 3 ??? ferrous sulfate 325 mg (65 mg iron) Tablet, Delayed Release (E.C.) Take 1 tablet by mouth daily.90 tablet 3 ??? rOPINIRole (REQUIP) 0.5 mg Tablet TAKE THREE TABLETS BY MOUTH AT NIGHT 270 tablet 3 ??? ibandronate (BONIVA) 150 mg Tablet Take 1 tablet by mouth every 30 days. Take in AM with full glass of water, on an empty stomach. Do not lie down for 30 min. 1 tablet 12 ??? triamcinolone (KENALOG) 0.1 % Cream Apply 1 Application topically as needed. Topically around left 4th finger as needed. 30 g 3 No current facility-administered medications for this [...] R94.6 ??? Gastroesophageal reflux K21.9 OBJECTIVE: Vitals: 08/30/16 0929 BP: 118/69 Pulse: 59 SpO2: 99% Weight: 53.8 kg (118 lb 9.6 oz) Height: 154.9 cm (5' 1) PHYSICAL [...] Diagnoses and all orders for this visit: GERD - ER follow up - cause of her intermittent chest pain. Will add ranitidine to the PPI. - goal to to try to reduce break through GERD symptoms. - ranitidine (ZANTAC) 150 mg Capsule; Take 1 capsule by mouth daily. Take before dinner every night. - she has had an endoscopy within the last 12 months that was unremarkable. Arthralgia, unspecified joint - CRP, acute inflammation; Future - Sedimentation rate; Future - Rheumatoid factor, quant; Future - Cyclic Citrullinated Peptide; Future - CRP, acute inflammation - Rheumatoid factor, quant - Cyclic Citrullinated Peptide documented in this encounter Plan of Treatment Not on filedocumented as of this encounter Procedures Procedure Name Priority Date/Time Associated Comments Diagnosis CRP, ACUTE Routine 08/30/2016 10:47 Arthralgia, Results for this INFLAMMATION AM EST unspecified joint procedure are in the results section. ANTI-CYCLIC Routine 08/30/2016 10:47 Arthralgia, Results for this CITRULLINATED PEPTIDE AM EST unspecified joint p rocedure are in AB the results section. RHEUMATOID FACTOR, Routine 08/30/2016 10:47 Arthralgia, Resul ts for this QUANT AM EST unspecified joint procedure are in the results section. documented in this encounter Results Cyclic Citrullinated Peptide (08/30/2016 10:47 AM EST) athologist Signature Anti-Cyc Cit <8.0 <=17.0 [facility] Peptide unit/mL [facility] Specimen Anatomical Collection Method Collection Time Receive d Time (Source) Location / / Volume Laterality Blood specimen 08/30/2016 10:47 7 (specimen) AM EST 12:02 PM EST Resulting Agency Comment Spec In Lab Corin Montoya MD CHEMISTRY ORDERABLES Performing Organization Address City/State/ZIP Code Phon e Number [address] Rheumatoid factor, quant (08/30/2016 10:47 AM EST) athologist Signature RF <10 <=14 IU/mL [facility] Specimen Anatomical Collection Method Collection Time Receive d Time (Source) Location / / Volume Laterality Blood specimen 08/30/2016 10:47 7 (specimen) AM EST 12:02 PM EST Resulting Agency Comment Spec In Lab Corin Montoya MD IMMUNOLOGY ORDERABLES Performing Organization Address City/[facility]/ZIP Code Phon e Number [address] CRP, acute inflammation (08/30/2016 10:47 AM EST) athologist Signature CRP 1.9 <=4.9 mg/L [facility] Specimen Anatomical Collection Method Collection Time Receive d Time (Source) Location / / Volume Laterality Blood specimen 08/30/2016 10:47 7 (specimen) AM EST 12:02 PM EST Resulting Agency Comment Spec In Lab oCrin Montoya MD CHEMISTRY ORDERABLES Performing Organization Address City/State/[place] [address] documented in this encounter Visit Diagnoses Diagnosis Arthralgia, unspecified joint - Primary documented in this encounter Care Teams Carpenter Helper Relationship Specialty Start Date End Date Allison Granados APRN PCP - General 04/22/14 06/27/[address] [facility] [address] [place] [address] documented as of this encounter
--- OUTSIDE RECORDS SUMMARY | 2021-12-28 04:09 | XMS_ITS | Encounter Summary ---
:1950 Author Organization [facility] Address [address] [place] [address] Care Team Providers Name Role Phone Allison Granados APRN Primary Care Provider [phone] Reason for Visit Reason Comments Follow-up Encounter Details Date Type Department Care Team Description 08/15/2017 [place] [facility] [place], Gas pain (Primary Dx); [facility] Marilyn Henry MD Other chest pain; [place] [address] [facility] Gastroesophageal reflux dise ase, esophagitis presence not specified; [phone] [place] Constipation, unspecified [place] [address] Social History Tobacco Use Types Packs/Day Years [...] Sign Reading Time Taken Comments Blood Pressure 114/64 08/15/2017 8:57 AM EST Pulse 59 08/15/2017 8:57 AM EST Temperature - - Respiratory Rate - - Oxygen Saturation - - Inhaled Oxygen Concentration - - Weight 50.3 kg (111 lb) 08/15/2017 8:57 AM EST Height 152.4 cm (5') 08/15/2017 8:57 AM EST Body Mass Index 21.68 08/15/2017 8:57 AM EST documented in this encounter Patient Instructions Patient InstructionsDevi Rosa MD - 08/15/2017 9:00 AM EST Thank you for coming in to see me today. I think you are doing much better overall in terms of your acid reflux (GERD) and constipation. We are trying to improve your feeling of indigestion (upper gas pressure). Here is the plan we developed together: 1. Take simethicone - chew two tablets every 6 hours as needed for the feeling of indigestion/gas pressure - try simethicone. 2. If you are no better in 4 weeks, please return for the pH testing. If you are better then please cancel the PH testing in advance. 3. Continue Nexium 40 mg twice a day (30 minutes before breakfast and 30 minutes before dinner) and Zantac 300 mg at night. 4. Once your indigstion is better controlled, we can try to decrease your Nexium to 20 mg twice a day. 5. Continue Metamucil. Can also try Citrucel or Benefiber if you feel Metamucil is making you gassy. 6. Return to see me in the office in 6 months. documented in this encounter Progress Notes Devi Rosa MD - 08/15/2017 9:00 AM EST Patient Active Problem List Diagnosis Code ??? [...] Elevated TSH R94.6 ??? Gastroesophageal reflux K21.9 LAST VISIT: 04/02/2017 HISTORY OF PRESENT ILLNESS Elida Montez is a 66 y.o. female with GERD and functional bowel disorder predominantly constipation who presents for follow-up visit. Please see my previous notes for details of the patient's past history. At last visit, we discussed elevating HOB, increasing Nexium to 40 mg BID and Zantac 300 mg QHS for night time chest pain. We also discussed adding fiber, fluids and Miralax PRN for her fluctuating bowel habits. Today, she is doing well. She has rare night-time wakening that improves with alk seltzer or sittingup in a chair. Used to happen several times a week. She has elevated her HOB. She is no longer bothered by the night-time burning but is most bothered by a dull constant, gas-like pressure. This indigestion occurs in the morning or when walking the dog for hours. Sometimes improves with casey seltzerwhich makes her burp. Feels better after burping. She feels like it's gas. Happens 3-4 times per week. She drinks a little coffee. In terms of her bowels, her constipation has improved with metamucil which results in a BM once a day. She has no problems as long as she takes metamucil. Miralax one capful didn't do much above the metamucil and she doesn't feel the need for any other laxatives. Still has bouts of urgency followed bya quick formed BM followed by liquid with sense of complete sensation. No abdominal pain. No regular nausea, vomiting, early satiety. Rare stable dysphagia Medication trials: Nexium 40 mg BID Zantact 300 mg QHS Miralax PRN - not helpful Metamucil - results in once daily BM Testing: Colonoscopy in 2008 was normal. EGD 12/2015 - normal, z line 35 cm Stress echo 02/2016 normal Cardiac enzymes 08/2016 negative MEDICATIONS Current Outpatient Prescriptions on File Prior to Visit Medication Sig Dispense Refill ??? oxybutynin (DITROPAN-XL) [...] allergies reviewed. PHYSICAL EXAM: Most Recent Vitals: 08/15/17 0857 BP: 114/64 Pulse: 59 Wt Readings from Last 3 Encounters: 08/15/17 50.3 kg (111 lb) 05/14/17 53.1 kg (117 lb) 04/02/17 54.1 kg (119 lb 3.2 oz) GEN: Alert, cooperative. Pleasant. In NAD HEENT: No oropharyngeal lesions. Neck supple. No masses. Thyroid symmetric LUNGS: CTAB CARD: RRR without m/g/r ABD: Non-distended. Active BS. Soft. Benign. No masses. No HSM. EXT: No C/C/E NEURO: Grossly intact RECENT LABS No results found for this or any previous visit (from the past 24 hour(s)). ASSESSMENT AND PLAN Elida Montez is a 66 y.o. who presents for follow-up of GERD, constipation, and new feeling of upper pressure/indigestion. We discussed the following recommendations that were printed out for the patient: Indigestion/gas pressure - try simethicone - pH test/manometry. While I think this symptoms is unlikely to be due to refractory GERD, I think this test will be helpful in reassuring patient. Patient to cancel appt if she improves on simethicone. GERD - continue Nexium 40 mg BID and Zantac 300 mg QHS - once indigestion is better controlled, trial Nexium to 20 mg BID Fluctuating bowel habits - Metamucil - Stop Miralax To see PCP in November. RTC in 6 months. All of the patient's questions were answered. Devi Rosa MD Esthetician Makeup Artistregistered route associate Section of Gastroenterology [place] [address] documented in this encounter Plan of Treatment Not on filedocumented as of this encounter Visit Diagnoses Diagnosis Gas pain - Primary Flatulence, eructation, and gas pain Other chest pain Gastroesophageal reflux disease, esophag itis presence not specified Constipation, unspecified constipation t ype documented in this encounter Care Teams Radiator Specialist Relationship Specialty Start Date End Date Allison Granados APRN PCP - General 04/22/14 06/27/[address] [facility] [address] [place] [address] documented as of this encounter
--- OUTSIDE RECORDS SUMMARY | 2021-12-28 04:09 | XMS_ITS | Encounter Summary ---
:1950 Author Organization [facility] [place] [address] Care Team Providers Name Role Phone Allison Granados APRN Primary Care Provider [phone] Encounter Details Date Type Department Care Team Description 08/26/2016 External Results Internal Medicine at [place] [address] [place] [address] Social History Tobacco Use Types Packs/Day [...] Name Priority Date/Time Associated Diagnosis Comme nts TROPONIN Routine 08/23/2016 4:05 AM Results f or this EST procedure are i n the results section. EXTERNAL LAB CBC Routine 08/22/2016 11:50 PM Resu lts for this CMP THYROID RESULTS EST procedur e are in PANEL the results section. documented in this encounter Results (ABNORMAL) Troponin T (08/23/2016 4:05 AM EST) P athologist Signature Troponin-T 0.02 EXTERNAL LAB (External Lab) Specimen (Source) Anatomical Collection Method Collection Time Re ceived Time Location / / Volume Laterality Blood specimen 08/23/2016 4:05 AM (specimen) EST Narrative This result has an attachment that is no t available. Historical Provider CHEMISTRY ORDERABLES Performing Organization Address City/State/ZIP Code Phon e Number EXTERNAL LAB (ABNORMAL) CBC / CMP / Thyroid External Results (08/22/2016 11:50 PM EST) P athologist Signature WBC 8.09 EXTERNAL LAB (External Lab) RBC 4.44 4.00 - EXTERNAL LAB (External 5.20 Lab) Hemoglobin 13.6 12.0 - EXTERNAL LAB (External 16.0 Lab) Hematocrit 39.2 36.0 - EXTERNAL LAB (External 46.0 Lab) MCV 88.3 82.0 - EXTERNAL LAB (External 108.0 Lab) Platelets 243 EXTERNAL LAB (External Lab) Sodium 144 137 - 147 EXTERNAL LAB (External Lab) Potassium 4.0 3.4 - 5.3 EXTERNAL LAB (External Lab) Chloride 108 99 - 108 EXTERNAL LAB (EXTERNAL/A BN) Comment: ext ref range: 98 - 107 CO2 28 (External Lab) 22 - 29 EXTERNAL LAB BUN 17 (External Lab) EXTERNAL LAB Creatinine 0.70 (External Lab) EXTERNAL LAB Estimated GFR >60 (External Lab) EXTERNA L LAB Glucose Lvl 113 (EXTERNAL/ABN) EXTERNAL LAB Calcium 8.5 (External Lab) 8.7 - 10.7 EXTERNAL L AB Comment: ext ref range: 8.5 - 10.1 Magnesium 1.9 (External Lab) EXTERNAL LA B Anion Gap 8 (External Lab) EXTERNAL LAB Comment: 7.8 Troponin-T 0.02 (External Lab) EXTERNAL LAB Specimen (Source) Anatomical Collection Method Collection Time Re ceived Time Location / / Volume Laterality 08/22/2016 11:50 PM EST Narrative This result has an attachment that is no t available. Historical Provider POINT OF CARE TEST ORDERABLE S Performing Organization Address City/State/ZIP Code Phon e Number EXTERNAL LAB documented in this encounter Visit Diagnoses Not on filedocumented in this encounter Care Teams Senior Electrical Design Engineer Relationship Specialty Start Date End Date Allison Granados APRN PCP - General 04/22/14 06/27/21 [facility] [address] [facility] [facility] [address] documented as of this encounter
--- OUTSIDE RECORDS SUMMARY | 2021-12-28 04:09 | XMS_ITS | Encounter Summary ---
:1950 Author Organization [facility] [place] [address] Care Team Providers Name Role Phone Roberta Allison Rain APRN Primary Care Provider [phone] Reason for Referral Diagnostic Test (Routine) - Closed Specialty Diagnoses / Procedures Referred By Contact Refer red To Contact Radiology Diagnoses Lower abdominal pain Jeannette Campbell MD [facility] Rad Ct Scan Procedures CT Abdomen & Pelvis w Contrast [address] [phone] Phone: Referral ID Status Reason Start Date Expiration Date Visits V isits Requested Authorized [id number] Closed Specialty 01/22/2018 01/22/2019 1 1 Service Requested Reason for Visit Reason Comments Groin Pain Back pain. Does not think sh e has any urinary symptoms. Encounter Details Date Type Department Care Team Description 01/22/2018 Office Visit Internal Medicine at Shaka Campbell MD Lower abdominal pain [address] [facility] [address] [place] [address] Social History Tobacco Use Types Packs/Day Years [...] Sign Reading Time Taken Comments Blood Pressure 135/64 01/22/2018 2:43 PM EDT Pulse 66 01/22/2018 2:43 PM EDT Temperature 36.6 ??C (97.9 ??F) 01/22/2018 2:43 PM EDT Respiratory Rate 14 01/22/2018 2:43 PM EDT Oxygen Saturation 100% 01/22/2018 2:43 PM EDT Inhaled Oxygen Concentration - - Weight 52 kg (114 lb 9.6 oz) 01/22/2018 2:43 PM EDT Height - - Body Mass Index 22.38 11/11/2017 7:55 AM EDT documented in this encounter Progress Notes Jeannette Campbell MD - 01/22/2018 3:00 PM EDT Acute Visit for Established [place] Patient: Elida Montez is a 67 y.o. female with chief complaint of Chief Complaint Patient presents with ??? Groin Pain Back pain. Does not think she has any urinary symptoms. History of Present Illness: This is a 67-year-old female patient with asthma, osteopenia, IBS and GERD presenting today with left back and left lower abdominal pain that started yesterday. Low back pain bilaterally last two days, worse on left and this morning was okay and then fairly acutely developed left lower quadrant and pelvic pain that makes her want to bend over with pain. She has taken Aleve and Tylenol neither of which have had any effect on the pain. She does not think thatthe low back pain that is bilateral radiates to the front. She has IBS so chronically has alternating diarrhea and constipation but tends towards constipation. Her last bowel movement was a small bowelbowel movement this morning. She does not have any nausea or vomiting. She has no urinary symptoms. Review of systems: Ambulating okay No fevers No night sweats No surgeries to back or hip No trauma to back or hip Alternating constipation and diarrhea 2/2 IBS - last BM early this am, tends towards constipation Medications: Reviewed and updated (if necessary) in EHR Physical Exam: Vitals: 01/22/18 1443 BP: 135/64 BP Location (NBP): Left arm Patient Position: Sitting BP Cuff Sizes: Adult (25-34 cm) Pulse: 66 Resp: 14 Temp: 36.6 ??C (97.9 ??F) TempSrc: Oral SpO2: 100% Weight: 52 kg (114 lb 9.6 oz) Body mass index is 22.38 kg/(m^2). General: Pleasant and conversant in no acute distress. Eyes: EOMI. No scleral icterus. Noninjected. Oropharynx: moist mucous membranes, no erythema or exudate Neck: no lymphadenopathy or thyromegaly appreciated Abdomen/GI: Hyperactive bowel sounds, soft with mild diffuse tenderness in all quadrants but moderate TTP palpation on the LLQ, no rebound, slight voluntary guarding Extremities: No edema. Hip exam left: FROM, no pain or tenderness with active or passive movement, good adductor strength without pain Urine dip - all negative, normal Assessment and Plan: Elida was seen today for what was billed as groin/hip pain but what really is left lower quadrant pain for 2 days with exam findings consistent with the possibility of sigmoid diverticulitis. Will start empiric anbx and have her get CT scan as soon as possible. No signs of acute abdomen on exam today.Urine dip was normal Diagnoses and all orders for this visit: Lower abdominal pain - POCT urine dipstick - CT Abdomen & Pelvis w Contrast; Future - CBC (with Diff); Future - Comprehensive metabolic panel (non-fasting); Future - ciprofloxacin (CIPRO) 500 mg Tablet; Take 1 tablet by mouth 2 times daily for 10 days. - metroNIDAZOLE (FLAGYL) 500 mg Tablet; Take 1 tablet by mouth 3 times daily for 10 days. Jeannette Campbell MD 01/22/2018 documented in this encounter Plan of Treatment Not on filedocumented as of this encounter Procedures Procedure Name Priority Date/Time Associated Comments Diagnosis HEMOGRAM Routine 01/22/2018 3:50 PM Lower abdominal Result s for this EDT pain procedure are i n the results section. DIFFERENTIAL, Routine 01/22/2018 3:50 PM Lower abdominal Resul ts for this AUTOMATED EDT pain procedure are i n the results section. CBC (WITH DIFF) Routine 01/22/2018 3:50 PM Lower abdominal EDT pain COMPREHENSIVE Routine 01/22/2018 3:50 PM Lower abdominal Resul ts for this METABOLIC PANEL EDT pain procedure ar e in (NON-FASTING) the results section. POCT URINE DIPSTICK Routine 01/22/2018 3:00 PM Lower abdominal Results for this EDT pain procedure are i n the results section. [...] interpretation and agree with the findings, Ricky salas at 01/23/2018 9:31 AM Narrative 01/23/2018 9:31 [...] AM Jeannette Campbell MD IMG CT ORDERABLES (ABNORMAL) Differential, Automated (01/22/2018 3:50 PM EDT) [facility] Method Time Signature Neutrophils % 48.5 % [facility] Neutr Abs (ANC) 4.14 1.70 - [facility] 6.10 [facility] x10(3)/[facility] LABORATORY Lymphocytes % 34.2 % [facility] Lymphocytes Abs 2.9 0.9 - 3.2 [facility] x10(3)/[facility] LABORATORY Monocytes % 13.5 % [facility] Monocyte Abs 1.2 (H) 0.3 - 0.9 [facility] x10(3)/[facility] LABORATORY Eosinophils % 2.0 % [facility] Eosinophils Abs 0.2 0.0 - 0.4 [facility] x10(3)/[facility] LABORATORY Basophils % 1.2 % [facility] Basophils Abs 0.1 0.0 - 0.1 [facility] x10(3)/[facility] LABORATORY Immature Gran % 0.60 % [facility] Comment: Immature granulocytes(IG's)percentage an d absolute count will include metamyelocytes, myelocytes, and promyelo cytes. Blood smears from CBCs yielding IG's will be scanned manually for concor dance. If this scan disagrees with the automated IG or if promyelocytes are not ed, a manual differential will be performed. Zena Gran Abs 0.05 (H) 0.00 - 0.04 x10(3)/[facility] LABORATORY Specimen Anatomical Collection Method Collection Time Receive d Time (Source) Location / / Volume Laterality Blood specimen 01/22/2018 3:50 PM 018 6:47 (specimen) EDT PM EDT Resulting Agency Comment Spec In Lab Jeannette Campbell MD HEMATOLOGY ORDERABLES Performing Organization Address City/State/[place] [address] Hemogram (01/22/2018 3:50 PM EDT) P athologist Signature WBC 8.5 4.0 - 9.5 [facility] LABORATORY RBC 5.03 4.00 - [place] [place] 5.21 [facility] x10(6)/[facility] LABORATORY Hemoglobin 14.9 11.7 - [facility] 15.5 gm/dL [facility] Hematocrit 45.1 35.7 - [facility] 45.8 % [facility] MCV 89.7 82.6 - [facility] 94.4 [facility] LABORATORY MCH 29.6 27.1 - [place] [place] 32.0 pg [facility] MCHC 33.0 31.7 - [facility] [place] 35.0 gm/dL [facility] Platelets 284 145 - 357 [facility] x10(3)/[facility] LABORATORY RDWSD 42.6 37.0 - [place] 46.0 [facility] LABORATORY RDWCV 12.9 11.5 - [facility] CORKY 14.1 % [facility] MPV 10.6 7.6 - 12.9 [place] [facility] LABORATORY nRBC % Auto 0.0 % [facility] nRBC Abs Auto 0.000 0.000 - [facility] CORKY 0.000 [facility] x10(3)/[facility] LABORATORY Specimen Anatomical Collection Method Collection Time Receive d Time (Source) Location / / Volume Laterality Blood specimen 01/22/2018 3:50 PM 018 6:47 (specimen) EDT PM EDT Resulting Agency Comment Spec In Lab Jeannette Campbell MD HEMATOLOGY ORDERABLES Performing Organization Address City/[facility]/ZIP Code Phon e Number [place] [phone] (ABNORMAL) Comprehensive metabolic panel (non-fasting) (01/22/2018 3:50 PM EDT) athologist Signature Glucose Lvl 84 65 - 199 [facility] mg/dL [facility] Comment: Diabetes: >=200 mg/dL plus symp toms BUN 12 8 - 18 mg/dL [facility] Creatinine 0.61 (L) 0.70 - 1.20 mg/dL [facility] LABOR[facility] Sodium 140 135 - 145 mmol/L [facility] Potassium 4.2 3.5 - 5.0 mmol/L [facility] Comment: Please note: ??Patients with WBC >100,00 0 may have falsely elevated Potassium levels. ??For accurate Potassium quantif ication in these patients send serum separator tube (gold top) for subsequent determinations. ??Contact the Clinical Chemistry Laboratory if there are any qu estions. Chloride 101 98 - 107 mmol/L [facility] CO2 26 22 - 31 mmol/L [facility] Anion Gap 13 5 - 15 mmol/L [facility] Calcium 9.2 8.5 - 10.5 mg/dL [facility] Total Protein 6.8 6.1 - 8.0 gm/dL [facility] Albumin 4.3 3.2 - 5.2 gm/dL [facility] AST 16 0 - 30 unit/L [facility] ALT 21 0 - 30 unit/L [facility] Alk Phos 57 40 - 104 unit/L [facility] Total Bilirubin 0.7 0.2 - 1.3 mg/dL [facility] Estimated GFR 92 >=60 mL/min/1.73 m?? [facility] Comment: The eGFR was calculated using the CKD-EP I equation. As with all creatinine based estimates of kidney function, eGFR values calculated with the CKD-EPI equation are not accurate in patients wi th acute kidney failure, extremes of body mass or the acutely ill. http://UrbanIndo.Poacht App/DHnkdep http://ElasticBox/DHMCnkf eGFR 107 >=60 mL/min/1.73 m?? [facility] Comment: The eGFR was calculated using the CKD-EP I equation. As with all creatinine based estimates of kidney function, eGFR values calculated with the CKD-EPI equation are not accurate in patients wi th acute kidney failure, extremes of body mass or the acutely ill. http://ElasticBox/DHnkdep http://ElasticBox/DHMCnkf Specimen Anatomical Collection Method Collection Time Receive d Time (Source) Location / / Volume Laterality Blood specimen 01/22/2018 3:50 PM 018 6:46 (specimen) EDT PM EDT Resulting Agency Comment Spec In Lab Jeannette Campbell MD CHEMISTRY ORDERABLES Performing Organization Address City/State/[place] [address] POCT urine dipstick (01/22/2018 3:00 PM EDT) P athologist Signature POC Sp [place] 1.005 1.002 - 1.030 POC pH, UA 8 5.0 - 8.5 POC Leuk, UA neg Negative - Negative POC Nitrite, neg Negative - UA Negative POC Protein, neg Negative - UA Negative mg/dL POC Glucose, norm Normal - UA Normal mg/dL POC Ketone, UA neg Negative - Negative POC Urobil, UA norm 0.2 - 1.0 mg/dL POC Bili, UA neg Negative - Negative POC Blood, UA neg Negative - Negative aaron/uL Specimen (Source) Anatomical Collection Method Collection Time Re ceived Time Location / / Volume Laterality Urine specimen 01/22/2018 3:00 PM (specimen) EDT Jeannette Campbell MD POINT OF CARE TEST ORDERABLE S documented in this encounter Visit Diagnoses Diagnosis Lower abdominal pain Abdominal pain, other specified site Lower abdominal pain Abdominal pain, other specified site documented in this encounter Care Teams Hogshead Mat Assembler Relationship Specialty Start Date End Date Allison Granados APRN PCP - General 04/22/14 06/27/[address] [facility] [address] [place] [address] documented as of this encounter
--- OUTSIDE RECORDS SUMMARY | 2021-12-28 04:09 | XMS_ITS | Encounter Summary ---
:1950 Author Organization [facility] [place] [address] Care Team Providers Name Role Phone Allison Granados APRN Primary Care Provider [phone] Reason for Visit Reason Onset Date Comments Follow-up 08/23/2016 Encounter Details Date Type Department Care Team Description 08/23/2016 Telephone Internal Medicine at [facility] AngelikaLida Follow-up [address] [place] [address] Social History Tobacco Use Types Packs/Day Years Used Date Never Smoker Smokeless Tobacco: Never Used Alcohol Use Standard Drinks/Week Comments No 0 (1 standard drink = 0.6 oz pure alcoho l) Sex Assigned at Date Recorded Not on file documented as of this encounter Miscellaneous Notes Telephone Encounter - Corin Mclean RN - 08/23/2016 10:00 AM EST TC to patient. She states she has not started the sucralfate yet, will potato picker this morning, but states she has no pain this morning. Reviewed ED summary with patient and she v/u of orders. Scheduled with Allison on 08/30 for follow up. ED summary routed to Allison Telephone Encounter - Lida Carney - 08/23/2016 9:50 AM EST Please call patient to discuss Emergency Room Follow Up Symptoms: Chest Pain- Gastro Reflux Which ED: [facility] Records Sent: quick fax sent 08/23/16 Caller and Relationship (if other than patient): Self Best time to call back: any Okay to leave a message: y Okay to send my- message: n Nurse contacted via: Message: x Call: Pager: documented in this encounter Plan of Treatment Not on filedocumented as of this encounter Visit Diagnoses Not on filedocumented in this encounter Care Teams Arts Manager Relationship Specialty Start Date End Date Allison Granados APRN PCP - General 04/22/14 06/27/[address] [facility] [place] [address] documented as of this encounter
--- OUTSIDE RECORDS SUMMARY | 2021-12-28 04:09 | XMS_ITS | Encounter Summary ---
:1950 Author Organization [facility] [place] [address] Care Team Providers Name Role Phone Allison Granados APRN Primary Care Provider [phone] Reason for Referral Surgical (Routine) - Closed Specialty Diagnoses / Procedures Referred By Contact Refer red To Contact Gastroenterology Diagnoses Dyspepsia Dyspepsia Devi Rosa, [facility] Gastro 4t Procedures pH Impedance - 24 Hour IMP OFF meds - HREM done here 09/17/17 [place] [address] [place] [address] Fax: Referral ID Status Reason Start Date Expiration Date Visits V isits Requested Authorized [id number] Closed Consult, 09/26/2017 09/26/2018 1 1 Test & Treat Encounter Details Date Type Department Care Team Description 09/26/[address] [facility] Devi Rosa [facility] [place] [address] [facility] [phone] [place], [place] [address] (Wo rk) Social History Tobacco [...] this encounter Miscellaneous Notes Telephone Encounter - Devi Rosa MD - 09/26/2017 9:21 AM EDT Feels the same, with ongoing indigestion in middle of chest. Sometimes difficulty swallowing and sometimes no difficulty. Doesn't avoid any foods. Rare that foodgets stuck. Doesn't feel much improvement with Nexium or ranitidine. Reviewed recent study results: Manometry - ineffective esophageal motility [place] - no reflux events (probe too high or well acid suppressed). Suggested ambulatory impedance/pH off medications - advised her to stop Nexium and randitine. documented in this encounter Plan of Treatment Scheduled Orders Name Type Priority Associated Diagnoses Order S chedule pH Impedance - 24 Hour Procedures Routine Dyspepsia Order ed: 09/26/2017 documented as of this encounter Visit Diagnoses Diagnosis Dyspepsia Dyspepsia and other specified disorders of function of stomach documented in this encounter Care Teams Mixing Machine Operator Relationship Specialty Start Date End Date Allison Granados APRN PCP - General 04/22/14 06/27/[address] [facility] [address] ROD INTERNAL [place] [address] documented as of this encounter
--- OUTSIDE RECORDS SUMMARY | 2021-12-28 04:09 | XMS_ITS | Encounter Summary ---
:1950 Author Organization [facility] [place] [address] Care Team Providers Name Role Phone Allison Granados APRN Primary Care Provider [phone] Encounter Details Date Type Department Care Team Description 10/02/2017 Telephone Gastroenterology at [facility] Jarred Yo [facility] [place] [address] Social History Tobacco Use Types Packs/Day [...] Telephone Encounter - Jarred Yo RN - 10/02/2017 3:[address] Rosa: ? Does she think she is worse off Nexium? If so, she can resume and then stop before the impedance/PH test (whatever interval is usually recommended). Thanks, Devi Returned call to patient she thought that she might try some pepto. Asked patient to call the officeif she did decide to restart the omeprazole and reminder her that she would need to stop and be off for atleast 7 days prior to the impedance testing. Patient verbalized understanding and agreed with plan. Telephone Encounter - Jarred Yo RN - 10/02/2017 11:38 AM EDT Patient calls the office leaving a message on the RN voicemail stating, I have acid coming up intomy throat, stomach and chest pain. Returned call to patient. Dr. Rosa spoke with patient last 09/26/17 documentation in ED[facility]. Patient states that last night her stomach was bloated and full of gas, she took casey seltzer, but that did not help. Patient states that she ate light last night. Patient stated that she is scheduled for the impedance test on 11/05/2017. Made patient aware that this message will be forwarded to Dr. Rosa. documented in this encounter Plan of Treatment Not on filedocumented as of this encounter Visit Diagnoses Not on filedocumented in this encounter Care Teams Tar Heat Exchanger Cleaner Relationship Specialty Start Date End Date Allison Granados APRN PCP - General 04/22/14 06/27/[address] [facility] [place] [address] documented as of this encounter
--- OUTSIDE RECORDS SUMMARY | 2021-12-28 04:09 | XMS_ITS | Encounter Summary ---
:1950 Author Organization [facility] [place] [address] Care Team Providers Name Role Phone Allison Hector APRN Primary Care Provider [phone] Encounter Details Date Type Department Care Team Description 08/20/2017 Hospital Encounter Ultrasound at [facility] Allison Hector Thyroid nodule [facility], [place] [address] GENERAL INTERNAL [phone] MED-LY[place], [place] [address] (Wo rk) Social History Tobacco [...] Start Date End Date UNABLE TO FIND Over the counter, 0 [...] 3 017 04/01/2018 mg Tablet mouth daily. albuterol (PROVENTIL Inhale 2 puffs into 1 [...] 2 times mcg/dose Disk with daily. Device clobetasol (TEMOVATE) Apply scant amount 15 g 0 201612/20/2019 0.05 % Ointment topically to vulva daily as instructed until next appointment in 6-8 weeks. documented as of this encounter Plan of Treatment Not on filedocumented as of this encounter Procedures Procedure Name Priority Date/Time Associated Diagnosis Comme nts US THYROID SOFT Routine 08/20/2017 2:04 PM Thyroid nodule Resu lts for this TISSUE EST procedure are i n the results [...] isrecommended (not necessarily the largest)Source: [employer] 2017;14:587-595.I hav e personally reviewed the image(s) and the residents interpretation andagree with the findings, Lyn Gamble at 08/20/2017 2:41 PM ?Lyn noel MD Electronically Signed Final Report ?? 02:49 pm Narrative 08/20/2017 2:50 PM EST Thyroid ? (Signed Final 08/20/2017 02:49 pm) PATIENT INFO: ID #: ? [id number] ?: ??[birth year] (66 yrs) Name: ? JAGRUTI DINH ?Visit Date: 08/20/2017 01:58 pm PERFORMED BY: Performed By: ? Gregory Madden RDMS Attending: ?Tye DARDEN, Lyn Sharif Resident: ? Mikayla DARDEN, Smita Referred By: ?ALLISON HECTOR Location: ? [place] SERVICE(S) PROVIDED: ??UTHYRD - Thyroid - [id number] ?[id number] INDICATIONS: ??monitor thyroid nodule COMPARISON: Previous ultrasound : 06/10/16. RIGHT LOBE: ??Date ? L(cm) ?AP(cm) ?TV(cm) ??08/20/17 ? 3.7 ?1.5 ? 1.5 ??06/10/16 ? 3.5 ?1.7 ? 1.8 -------- Lesions: -------- ??# ?Date ?Location ?Description ??1 ?02/14/18 ?Mid Lobe ?Solid or almost completely ? solid (2) Hyperechoic or ? isoechoic (1) Wider-than- ? tall (0) Smooth (0 points) ? None or large comet tail ? artifacts (0) ??1 ?12/05/16 ?Mid Lobe ?Iso- to hypoechoic, well ? circumscribed, peripheral ? vascularity ??2 ?12/05/16 ?Upper pole ?Hypoechoic, solid, non ? vascular, [...] Lesions: -------- ??# ?Date ?Location ?Description ??1 ?08/20/17 ?Mid Lobe ?Mixed cystic and solid (1) ? Hyperechoic or isoechoic ? (1) Xrutq-xora-qvaw (0) ? Smooth (0 points) None or ? large comet tail artifacts (0) ??1 ?12/05/16 ?Mid Lobe ?Well-circumscribed, solid ? with cystic components, ? peripheral vascularity ??2 ?02/14/18 ?Mid Lobe ?Solid or almost completely ? solid (2) Very hypoechoic ? (3) Wxxlj-gepb-glec (0) ? Smooth (0 points) None or [...] 08/20/2017 02:49 pm) PATIENT INFO: ID #: [id number] : [birth year] (66 y rs) Name: JAGRUTI DINH Visit Date: 08/20 01:58 pm PERFORMED BY: Performed By: Miriam Madden RDMS Attending: Lyn Gamble MD Resident: Smita Degroot MD Referred By: ALLISON HECTOR Location: [place] SERVICE(S) PROVIDED: UTHYRD - Thyroid - [id number] INDICATIONS: monitor thyroid nodule COMPARISON: Previous ultrasound [...] so lid (1) Hyperechoic or isoechoic (1) Tivjb-pbnv-mhqr (0) Smooth (0 points) None or large comet tail artifacts (0) 1 06/10/16 Mid Lobe Well-circumscribed, solid with cystic components, peripheral vascularity 2 08/20/17 Mid Lobe Solid or almost com pletely solid (2) Very hypoechoic (3) Ibqeh-twqg-wlgo (0) Smooth (0 points) None or large [...] isrecommended (not necessarily the largest)Source: [employer] 2017;14:587-595.I hav e personally reviewed the image(s) and the residents interpretation andagree with the findings, Lyn Gamble at 08/20/2017 2:41 PM Lyn Gamble MD Electronically Signed Final Report 08/20 02:49 pm Allison Hector APRN IMG US GEN ORDERABLES documented in this encounter Visit Diagnoses Diagnosis Thyroid nodule Nontoxic uninodular goiter documented in this encounter Care Teams Supervisor Carpenters Relationship Specialty Start Date End Date Allison Hector APRN PCP - General 04/22/14 06/27/21 [facility] [place] [address] documented as of this encounter
--- OUTSIDE RECORDS SUMMARY | 2021-12-28 04:09 | XMS_ITS | Encounter Summary ---
:1950 Author Organization [facility] [place] [address] Care Team Providers Name Role Phone Allison Granados APRN Primary Care Provider [phone] Reason for Referral Diagnostic Test (Routine) - Closed Specialty Diagnoses / Procedures Referred By Contact Refer red To Contact Radiology Diagnoses Age-related osteoporosis without current pathological fracture Other osteoporosis without current pathological fracture Allison Granados [facility] Rad Xray Procedures DXA Central-Spine, Hip, And/Or Whole Body (Generic) RESEARCH AND DEVELOPMENT ENGINEER [address] [place] [id number] GENERAL INTERNAL Phone: [facility] [place] [address] Referral ID Status Reason Start Date Expiration Date Visits V isits Requested Authorized [id number] Closed Specialty 05/18/2018 05/18/2019 1 1 Service Requested Reason for Visit Reason Comments Annual Wellness Visit Encounter Details Date Type Department Care Team Description 05/18/2018 Office Visit Internal Medicine Allison Granados Medic are annual wellness visit, subsequent (Primary Dx); at [address] [facility] Rain Low ferritin level; [facility] Age-related os teoporosis without current pathological fracture; [facility] Elevated TSH; [place] [address] GENERAL INTERNAL Gastroesophageal reflux dise ase, esophagitis presence not specified; [phone] [facility] Restless leg syndrome; [place], [place] [address] Other osteoporosis without current patho logical fracture Social History Tobacco Use Types Packs/Day Years [...] Sign Reading Time Taken Comments Blood Pressure 124/66 05/18/2018 8:18 AM EST Pulse 69 05/18/2018 8:18 AM EST Temperature 36.6 ??C (97.8 ??F) 05/18/2018 8:18 AM EST Respiratory Rate - - Oxygen Saturation 98% 05/18/2018 8:18 AM EST Inhaled Oxygen Concentration - - Weight 52.9 kg (116 lb 9.6 oz) 05/18/2018 8:18 AM EST Height 153.9 cm (5' 0.59) 05/18/2018 8:18 AM EST Body Mass Index 22.33 05/18/2018 8:18 AM EST documented in this encounter Progress Notes Allison Granados, [facility] - 05/18/2018 8:30 AM EST Subjective: Patient ID: Elida Montez is a 67 y.o. female presents today for annual wellness exam. 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 She reports that someone is living with them who had a stroke and needs a lot of help. She has caregivers that come for respite care. RLS- on requip. SHe is taking 3 pills and that is helping. Low Ferritin- Lab Results Component Value Date FERRITIN 129 05/14/2017 IBS- followed by GI. GERD- on zantac and nexium. She is taking casey seltzer as needed for the stomach. She is followed byGI. Osteoporosis- T score of -2.9 in 2015. On Boniva, due for recheck of DEXA scan. Asthma- Advair and albuterol prn as needed. She has needed to use the albuterol most days. Other providers: Dr. Rosa, GI Suppliers: none Memory issues (mini-cog score No concern by evaluation): no Advanced directives: will give form today. Health Risk Assessment (HRA): (all responses reviewed including blank responses) Annual Wellness Visit Responses: myD-H Annual Wellness Visit Responses 05/18/2018 Health in general Good Quality of life Good Physical health Good Mental health Good Satisfaction with social activities Very Good Ability to carry out social activities Good Ability to carry out physical activities Completely Bothered by emotional problems Rarely Rate of fatigue Mild Rate of pain 0 -No Pain PROMIS-10 Physical Health Score 54.1 PROMIS-10 Mental Health Score 48.3 Hearing Loss Yes Activity - low level (Bathing, Dressing, Eating, Mobility, Using toilet, Grooming) - Activity - high level (Laundry, Housekeeping, Banking, Shopping, Use phone, Food Prep, Transportation, Taking meds) - Fallen in last year No Difficulties with [...] days Time spent on vigorous physical activity 20 minutes 10 mins of moderate physical activity 7 days Time spent on moderate physical activity 20 minutes Eat Fruit 1 - 3 times per day Eat Vegetables 1 - 3 times per day Eat Peanut Butter - Eat Nuts and Seeds - Eat Tuna or Other Dark Meat Fish - Take Supplements - Wear Seatbelt Always Tooth or Mouth Problems No Urinary Incontinence Yes Sexually active Yes Live Alone No School Some college or technical school Employment Status Currently working Hours per week Does not apply Combined Household Income $10,000 to less than $15,000 # People Supported 2 Who is taking survey I am (patient) Past/Family/Social History/Medications and Allergies reviewed and/or documented below. Review of Systems Constitutional: Negative for activity change, fatigue and fever. Respiratory: Negative for cough, chest tightness and shortness of breath. Cardiovascular: Negative for chest pain, palpitations and leg swelling. Gastrointestinal: Positive for abdominal pain (dyspepsia today). Neurological: Negative for dizziness, light-headedness and headaches. Objective: BP 124/66 (BP Location (NBP): Left arm, Patient Position: Sitting, BP Cuff Sizes: Adult (25-34 cm)) Pulse 69 Temp 36.6 ??C (97.8 ??F) (Oral) Ht 153.9 cm (5' 0.59) Wt 52.9 kg (116 lb 9.6 oz) SpO2 98% BMI 22.33 kg/m?? Patient reported measures: Pain:2 Physical Health:Good Fall: PHQ-9 QUESTIONNAIRE SCORE ONLY (AMB) 11/03/2017 PHQ - 9 Score (Clinic) 3 (Minimal Depression) Some recent data might be hidden Wt Readings from Last 3 Encounters: 05/18/18 52.9 kg (116 lb 9.6 oz) 03/06/18 53.2 kg (117 lb 4.8 oz) 01/22/18 52 kg (114 lb 9.6 oz) Hearing- no concern Physical Exam Constitutional: She is oriented to person, place, and time. She appears well- developed and well-nourished. No distress. HENT: Head: Normocephalic and atraumatic. Eyes: Conjunctivae are normal. Cardiovascular: Normal rate, regular rhythm and normal heart sounds. No murmur heard. Pulmonary/Chest: Effort normal and breath sounds normal. She has no wheezes. She has no rales. She exhibits no tenderness. Abdominal: Normal appearance and bowel sounds are normal. There is no splenomegaly or hepatomegaly. There is tenderness in the epigastric area. Neurological: She is alert and oriented to person, place, and time. Skin: Skin is warm and dry. Psychiatric: She has a normal mood and affect. Her behavior is normal. Judgment and thought content normal. Vitals reviewed. Assessment and Plan: Assessment/Plan: Elida was seen today for annual wellness visit. Diagnoses and all orders for this visit: Medicare annual wellness visit, subsequent - will check labs today given history of low ferritin and RLS (stable at this time) and elevated TSHin past - flu vaccine today and advance directive form given - follow up for chronic management in about 6 months - repeat dexa scan since not done since 2014. Low ferritin level - Ferritin; Future - Ferritin Age-related osteoporosis without current pathological fracture - TSH; Future - TSH Elevated TSH - TSH; Future - TSH Gastroesophageal reflux disease, esophagitis presence not specified - TSH; Future - TSH Restless leg syndrome - TSH; Future - TSH Other osteoporosis without current pathological fracture - TSH; Future - TSH Other orders - FluAd Trivalent, Adjuvanted Vaccine,65+ 1. SCREENING SCHEDULE & IMMUNIZATIONS - Health Maintenance Topic Date Due ??? Advance Directive 09/12/2003 ??? Zoster vaccine (2 of 3) 11/30/2012 ??? Influenza (Flu) vaccine (1 of 1 - Influenza standard series) 03/07/2018 ??? Tetanus vaccine 09/16/2018 ??? Colonoscopy 12/29/2018 [...] Name Priority Date/Time Associated Diagnosis Comme nts TSH Routine 05/18/2018 10:34 AM Other osteoporosis Re sults for this EST without current procedure ar e in pathological fra cture the results Elevated TSH section. Age-related osteoporosis without current pathological fracture Gastroesophageal reflux disease, esophagitis presence not specified Restless leg syndrome FERRITIN Routine 05/18/2018 10:34 AM Low ferritin level Re sults for this EST procedure are i n the results section. documented in this encounter Results DXA Central-Spine, Hip, And/Or Whole Body (Generic) (05/25/2018 9:17 AM EST) Anatomical Region Laterality Modality C-spine, Hip N/A Other Specimen (Source) Anatomical Location Collection Method / Collectio n Time Received Time / Laterality Volume Impressions 05/25/2018 10:09 AM EST Measurements satisfied the WHO classification for low bone mass or osteopenia. Measurements are near the threshold betw een osteopenia and osteoporosis. Lumbar spine bone mineral density has increased by 7% since 2014, while the left hip bone mineral density measurements have n ot significantly changed since 2014. DXA data sheets with BMD measurements an d plots are available in ERazmir under the imaging tab. Paper copies will be sent to providers without E- access. If you have received this report without th e data sheet and do not have access to Telx, please contact Radiology Transcrip tion at [phone] Friday thru Friday 8am-4pm. Narrative 05/25/2018 10:09 AM EST EXAMINATION: DXA CENTRAL-SPINE, HIP, AND/OR WHOLE BODY (GENERIC) CLINICAL HISTORY: 67-year-old postmenopa usal woman with history of osteoporosis on Boniva since about 2014 TECHNIQUE: Scans were acquired at the brandt mbar spine and left hip. COMPARISON: Previous scan: 10/06/2014. Bas abhi scan: 10/06/2014. Total spine: When compared with 10/06/2014, 7% increase in bone mineral density. Total hip: When compared with 10/06/2014, no signific ant change in bone mineral density. Measured increase in bone mineral densit y is not large enough to be confidently considered a true change in bone mineral density at 95% confidence. FINDINGS: Lowest T-score at a diagnostic region of interest: T-score: -2.4, SHAMAR: Lumbar spine, WHO di agnosis: Low bone mass or osteopenia. Procedure Note Buffy Mcmullen MD - 05/25/2018Formatting o f this note might be different from the original. EXAMINATION: DXA CENTRAL-SPINE, HIP, AND /OR WHOLE BODY (GENERIC) CLINICAL HISTORY: 67-year-old postmenopa usal woman with history of osteoporosis on Boniva since about 2014 TECHNIQUE: Scans were acquired at the brandt mbar spine and left hip. COMPARISON: Previous scan: 10/06/2014. Bas abhi scan: 10/06/2014. Total spine: When compared with 10/06/2014, 7% increase in bone mineral density. Total hip: When compared with 10/06/2014, no signific ant change in bone mineral density. Measured increase in bone mineral densit y is not large enough to be confidently considered a true change in bone mineral density at 95% confidence. FINDINGS: Lowest T-score at a diagnostic region of interest: T-score: -2.4, SHAMAR: Lumbar spine, WHO di agnosis: Low bone mass or osteopenia. IMPRESSION Measurements satisfied the WHO classific ation for low bone mass or osteopenia. Measurements are near the threshold betw een osteopenia and osteoporosis. Lumbar spine bone mineral density has increased by 7% since 2014, while the left hip bone mineral density measurements have n ot significantly changed since 2014. DXA data sheets with BMD measurements an d plots are available in E-DH under the imaging tab. Paper copies will be sent to providers without E-DH access. If you have received this report without th e data sheet and do not have access to E-, please contact Radiology Transcrip tion at [phone] Friday thru Friday 8am-4pm. Allison Granados APRN IMG DEXA ORDERABLES Ferritin (05/18/2018 10:34 AM EST) athologist Signature Ferritin 233 30 - 400 DIXIE CASPERCOCK ng/mL [facility] Comment: Pediatric reference ranges not verified at [facility], interpret with caution. Reference ranges for females greater celine n 50 years of age approach values for men, i.e., 30-400 ng/mL. Specimen Anatomical Collection Method Collection Time Receive d Time (Source) Location / / Volume Laterality Blood specimen 05/18/2018 10:34 8 (specimen) AM EST 11:49 AM EST Resulting Agency Comment Spec In Lab Allison Granados APRN CHEMISTRY ORDERABLES Performing Organization Address City/State/[place] [address] TSH (05/18/2018 10:34 AM EST) athologist Signature TSH 2.15 0.27 - 4.20 DIXIE SHARPCORKY mlU/ML [facility] Specimen Anatomical Collection Method Collection Time Receive d Time (Source) Location / / Volume Laterality Blood specimen 05/18/2018 10:34 8 (specimen) AM EST 11:49 AM EST Resulting Agency Comment Spec In Lab Allison Granados APRN CHEMISTRY ORDERABLES Performing Organization Address [place] [facility] [place] [address] documented in this encounter Visit Diagnoses Diagnosis Medicare annual wellness visit, subseque nt - Primary Routine general medical examination at a health care facility Low ferritin level Other nonspecific findings on examinatio n of blood Age-related osteoporosis without current pathological fracture Senile osteoporosis Elevated TSH Other abnormal blood chemistry Gastroesophageal reflux disease, esophag itis presence not specified Restless leg syndrome Restless legs syndrome (RLS) Other osteoporosis without current patho logical fracture Age-related osteoporosis without current pathological fracture Senile osteoporosis Other osteoporosis without current patho logical fracture documented in this encounter Care Teams Flute Polisher Relationship Specialty Start Date End Date Allison Granados APRN PCP - General 04/22/14 06/27/21 [facility] GENERAL [place] [address] [place] [address] documented as of this encounter
--- OUTSIDE RECORDS SUMMARY | 2021-12-28 04:09 | XMS_ITS | Encounter Summary ---
:1950 Author Organization [facility] Address [facility] [place] [address] Care Team Providers Name Role Phone Allison Granados APRN Primary Care Provider Reason for Visit Reason Comments Results saw endo and obgyn Encounter Details Date Type Department Care Team Description 08/13/2016 Office Visit Internal Medicine at Allison Granados tator cuff tendonitis, left (Primary Dx); Renny Rain APRN Rajendra's thyroiditis; [address] [facility] [place] [address] GENERAL INTERNAL [phone] [place] [id number] (Wo rk) Social History Tobacco Use Types Packs/Day Years Used Date Never Smoker Smokeless Tobacco: Never Used Alcohol Use Standard Drinks/Week Comments No 0 (1 standard drink = 0.6 oz pure alcoho l) Sex Assigned at Date Recorded Not on file documented as of this encounter Last Filed Vital Signs Vital Sign Reading Time Taken Comments Blood Pressure 120/64 08/13/2016 8:12 AM EST Pulse 62 08/13/2016 8:12 AM EST Temperature - - Respiratory Rate - - Oxygen Saturation 100% 08/13/2016 8:12 AM EST Inhaled Oxygen Concentration - - Weight 53.5 kg (118 lb) 08/13/2016 8:12 AM EST Height 154.9 cm (5' 1) 08/13/2016 8:12 AM EST Body Mass Index 22.3 08/13/2016 8:12 AM EST documented in this encounter Patient Instructions Patient InstructionsEstelaAllison mckenna, SOILA - 08/13/2016 8:49 AM EST Images from the original note were not included. [facility] Rotator Cuff Problems: Care Instructions Your Care Instructions The rotator cuff is a group of tendons and muscles around the shoulder that keeps the shoulder jointstable and allows you to raise and rotate your arm. Over time, daily wear and exercise can cause thetendons to rub on the bones of your shoulder. This is called impingement. This condition may cause the tendons to bruise, degenerate, or tear. In many people, these problems do not cause pain. When they do cause pain, you can use rest, physical therapy, ice and heat, and anti-inflammatory medicine to reduce pain and swelling. If you still have pain after trying these treatments, you and your doctor can discuss having a steroid injection or surgery. Follow-up care is a camacho part of your treatment and safety. Be sure to make and go to all appointments, and call your doctor if you are having problems. It's also a good idea to know your test results and keep a list of the medicines you take. How can you care for yourself at home? ?? Be safe with medicines. Read and follow all instructions on the label. ?? If the doctor gave you a prescription medicine for pain, take it as prescribed. ?? If you are not taking a prescription pain medicine, ask your doctor if you can take an knyd-wna-swcoqkf medicine. ?? Put ice or a cold pack on your shoulder for 10 to 20 minutes at a time. Try to do this every 1 to2 hours for the next 3 days (when you are awake). Put a thin cloth between the ice pack and your skin. ?? After 3 days, put a warm, wet towel on your shoulder. This is to relax the muscles and increase blood flow. While holding the towel on your shoulder, lean forward so your arm hangs freely, and gently swing your arm back and forth like a pendulum. You also can do this standing under a warm shower. ?? Follow your doctor's advice for physical therapy. When your doctor says it is okay, try these stretching exercises. Do them slowly to avoid injury. Put a warm, wet towel on your shoulder before exercising. Stop any exercise that increases pain. ?? Edbsm-mj-bdtlfm exercises. If it is not too painful, stretch your arm in four directions: across the body, up the back, to the side, and overhead. ?? Pendulum exercise. Lean forward and hold onto a table or the back of a chair with your good arm. Bend at the waist, letting the arm with the sore shoulder hang straight down. Swing your arm back andforth like a pendulum, then in circles that start small and slowly grow larger. This exercise does not use the arm muscles. Instead, use your legs and your hips to create movement that makes your arm swing freely. Try this for about 5 minutes, several times a day. ?? Wall climbing (to the side). Stand with your side to a wall so that your fingers can just touch it. Then turn so your body is turned slightly toward the wall. Walk the fingers of your injured arm upthe wall as high as pain permits. Try not to shrug your shoulder up toward your ear as you move yourarm up. Hold that position for a count of 15 to 30 seconds. Walk your fingers down to the starting position. Repeat 2 to 4 times, trying to reach higher each time. ?? Wall climbing (to the front). Face a wall, standing so your fingers can just touch it. Walk the fingers of your affected arm up the wall as high as pain permits. Try not to shrug your shoulder up toward your ear as you move your arm up. Hold that position for a count of 15 to 30 seconds. Slowly walk your fingers to the starting position. Repeat 2 to 4 times, trying to reach higher each time. ?? Rest your shoulder when you are not doing stretches and other exercises. Your doctor may tell youto wait for the pain to go away before doing exercises. Do not lift heavy bags of groceries, play sports, or do anything else that makes you twist or stress your shoulder. Avoid activities where you move your affected arm above your head. When should you call for help? Call your doctor now or seek immediate medical care if: ?? You have severe pain. ?? You cannot move your shoulder or arm. ?? You have tingling or numbness in your arm or hand. ?? Your arm or hand is cool or pale. Watch closely for changes in your health, and be sure to contact your doctor if: ?? Your pain gets worse. ?? You have new or worse swelling in your arm or hand. ?? You do not get better as expected. Where can you learn more? Visit our EARTHNET information library at [email or web address] You can also view health information on MogoTix, your personal patient account. Log in or sign up today. Enter E207 in the search box to learn more about Rotator Cuff Problems: Care Instructions. ?? [id number] Linkage. Care instructions adapted under license by [facility]. This care instruction is for use with your licensed healthcare professional. If you have questionsabout a medical condition or this instruction, always ask your healthcare professional. Linkage disclaims any warranty or liability for your use of this information. Content Version: 11.0.553300; Current as of: November 27, 2015 [facility] Rotator Cuff: Exercises Your Care Instructions [...] movement at your shoulder. Posterior stretching exercise 1. Hold the elbow of your injured arm with your other hand. 2. Use your hand to pull your injured arm gently up and across your body. You will feel a gentle stretch across the back of your injured shoulder. 3. Hold for at least 15 to 30 seconds. Then slowly lower your arm. 4. Repeat 2 to 4 times. Up-the-back stretch Note: Your doctor or physical therapist may want you to wait to do this stretch until you have regained most of your range of motion and strength. You can do this stretch in different ways. Hold any ofthese stretches for at least 15 to 30 seconds. Repeat them 2 to 4 times. 1. Put your hand in your back pocket. Let it rest there to stretch your shoulder. 2. With your other hand, hold your injured arm (palm outward) behind your back by the wrist. Pull your arm up gently to stretch your shoulder. 3. Next, put a towel over your other [...] your back tostretch your shoulder. Overhead stretch 1. Standing about an arm's length away, grasp onto a solid surface. You could use a countertop, a doorknob, or the back of a sturdy chair. 2. With your knees slightly bent, bend forward with your arms straight. Lower your upper body, and let your shoulders stretch. 3. As your shoulders are able to stretch farther, you may need to take a step or two backward. 4. Hold for at least 15 to 30 seconds. Then stand up and relax. If you had stepped back during your stretch, step forward so you can keep your hands on the solid surface. 5. Repeat 2 to 4 times. Shoulder flexion (lying down) Note: To make a wand for this exercise, use a piece of PVC pipe or a broom handle with the broom removed. Make the wand about a foot wider than your shoulders. 1. Lie on your back, holding a wand with both hands. Your palms should face down as you hold the wand. 2. Keeping your elbows straight, slowly raise your arms over your head. Raise them until you feel a stretch in your shoulders, upper back, and chest. 3. Hold for 15 to 30 seconds. 4. Repeat 2 to 4 times. Shoulder rotation (lying down) Note: To make a wand for this exercise, use a piece of PVC pipe or a broom handle with the broom removed. Make the wand about a foot wider than your shoulders. 1. Lie on your back. Hold a wand with both hands with your elbows bent and palms up. 2. Keep your elbows close to your body, and move the wand across your body toward the sore arm. 3. Hold for 8 to 12 seconds. 4. Repeat 2 to 4 times. Wall climbing (to the side) Note: Avoid any movement that is straight to your side, and be careful not to arch your back. Your arm should stay about 30 degrees to the front of your side. 1. Stand with your side to a wall so that your fingers can just touch it at an angle about 30 degrees toward the front of your body. 2. Walk the fingers of your injured arm up the wall as high as pain permits. Try not to shrug your shoulder up toward your ear as you move your arm up. 3. Hold that position for a count of at least 15 to 20. 4. Walk your fingers back down to the starting position. 5. Repeat at least 2 to 4 [...] Where can you learn more? Visit our EARTHNET information library at [email or web address] You can also view health information on MogoTix, your personal patient account. Log in or sign up today. Enter J005 in the search box to learn more about Rotator Cuff: Exercises. ?? [id number] Linkage. Care instructions adapted under license by [facility]. This care instruction is for use with your licensed healthcare professional. If you have questionsabout a medical condition or this instruction, always ask your healthcare professional. Linkage disclaims any warranty or liability for your use of this information. Content Version: 11.0.126015; Current as of: November 27, 2015 documented in this encounter Progress Notes Allison Granados APRN - 08/13/2016 8:20 AM EST Images from the original note were not included. PCP: Allison Granados APRN Chief Complaint Patient presents with ??? Results saw denny SUBJECTIVE: Elida Montez is a 65 y.o. female who presents for follow up for elevated TSH and to discuss shoulder pain. Shoulder left pain- she reports that the pain has been ongoing for about a month now. No known trauma or injury. She did have a fall a while ago, but did not hurt her shoulder. She notices it with her dog pulling on her arm. She reports that it is a sharp quick pain down her arm. No numbness or tingling. Pain is less then a minute. Chest pain- she took casey seltzer and it took about a 30 minutes it was better. She has been taking the nexium in the morning and that seems to help. Elevated TSH- she was seen by endocrinology and they have ordered Anti TPO and would like her to have lab done today. Plan to recheck TSH in 6 months and then at least yearly. Review of Systems Constitutional: Negative for chills and fever. Respiratory: Negative for cough and shortness of breath. Cardiovascular: Positive for chest pain (resolved after casey seltzer about 30 minutes) and palpitations (not new). Negative for leg swelling. Musculoskeletal: Positive for myalgias (down left arm with certain movement). Allergies Allergen Reactions ??? Codeine Nausea And Vomiting Current Outpatient Prescriptions Medication Sig Dispense Refill ??? clobetasol (TEMOVATE) 0.05 % Ointment Apply [...] Use with spacer 1 Inhaler 3 ??? rOPINIRole (REQUIP) 0.5 mg Tablet TAKE THREE TABLETS BY MOUTH AT NIGHT 270 tablet 3 ??? SYMBICORT 160-4.5 mcg/actuation HFA Aerosol Inhaler INHALE ONE PUFF BY MOUTH TWICE A DAY 10.2 Inhaler 12 ??? ibandronate (BONIVA) 150 mg Tablet Take 1 tablet by mouth every 30 days. Take in AM with full glass of water, on an empty stomach. Do not lie down for 30 min. 1 tablet 12 ??? triamcinolone (KENALOG) 0.1 % Cream Apply 1 Application topically as needed. Topically around left 4th finger as needed. 30 g 3 ??? levothyroxine (SYNTHROID) 50 mcg Tablet Take 1 tablet by mouth daily. (Patient not taking: Reported on 08/13/2016) 30 tablet 12 ??? ferrous sulfate 325 mg (65 mg iron) Tablet, Delayed Release (E.C.) Take 1 tablet by mouth daily.(Patient not taking: Reported on 08/09/2016) 90 tablet 3 No current facility-administered medications [...] bowel syndrome) K58.9 ??? Urinary frequency R35.0 OBJECTIVE: Vitals: 08/13/16 0812 BP: 120/64 Pulse: 62 SpO2: 100% Weight: 53.5 kg (118 lb) Height: 154.9 cm (5' 1) PHYSICAL EXAM: Physical Exam Constitutional: She is oriented to person, place, and time. She appears well- developed and well-nourished. HENT: Head: Normocephalic and atraumatic. Eyes: Conjunctivae are normal. No scleral icterus. Pulmonary/Chest: Effort normal. Musculoskeletal: Left shoulder: She exhibits decreased range of motion, tenderness, pain and decreased strength. Sheexhibits no bony tenderness, no swelling and no deformity. Arms: Pain with empty can test. Neurological: She is alert and oriented to person, place, and time. Skin: Skin is warm and dry. Psychiatric: She has a normal mood and affect. Her behavior is normal. Judgment and thought content normal. Vitals reviewed. ASSESSMENT & PLAN: Elida was seen today for results. Diagnoses and all orders for this visit: Shoulder pain, left - likely rotator cuff tenodonitis vs. Impingement. Discussed rest, ibuprofen and given exercises to try at home. She is to let us know if it does not get better, would recommend PT at that time. Rajendra's thyroiditis - Thyroid peroxidase antibody Other orders - fluticasone-salmeterol (ADVAIR DISKUS) 250-50 mcg/dose Disk with Device; Inhale 1 puff into the lungs 2 times daily. documented in this encounter Plan of Treatment Not on filedocumented as of this encounter Procedures Procedure Name Priority Date/Time Associated Diagnosis Comme nts THYROID PEROXIDASE STAT 08/13/2016 10:54 Rajendra's Resul ts for this ANTIBODY AM EST thyroiditis procedure are i n the results section. documented in this encounter Results (ABNORMAL) Thyroid peroxidase antibody (08/13/2016 10:54 AM EST) P athologist Signature Thyroperox Ab 697 (H) <=34 IU/mL [facility] Specimen Anatomical Collection Method Collection Time Receive d Time (Source) Location / / Volume Laterality Blood specimen 08/13/2016 10:54 7 1:23 (specimen) AM EST PM EST Resulting Agency Comment Spec In Lab Tova He MD IMMUNOLOGY ORDERABLES Performing Organization Address City/State/[place] [address] documented in this encounter Visit Diagnoses Diagnosis Rotator cuff tendonitis, left - Primary Rajendra's thyroiditis Chronic lymphocytic thyroiditis Elevated TSH Other abnormal blood chemistry documented in this encounter Care Teams Machine Leather Trimmer Relationship Specialty Start Date End Date Allison Granados APRN PCP - General 04/22/14 06/27/[address] [facility] [place] [address] documented as of this encounter
--- OUTSIDE RECORDS SUMMARY | 2021-12-28 04:09 | XMS_ITS | Encounter Summary ---
:1950 Author Organization [facility] [place] [address] Care Team Providers Name Role Phone Allison Granados APRN Primary Care Provider [phone] Encounter Details Date Type Department Care Team Description 09/19/2017 Telephone Gastroenterology at [facility] Corin Cortez [facility] [place] [address] Social History Tobacco Use Types Packs/Day [...] encounter Miscellaneous Notes Telephone Encounter - Corin Cortez RN - 09/19/2017 11:15 AM EDT Patient left message regarding HREM and Olmos done on 09/17/17 and subsequent stomach upset and nausea. Phone call returned to patient. Elida stated that she went to bed at 7:00pm on the evening of 09/17/17 because she was not feeling well. She has continued to feel unwell and reports nausea. She wanted to know if her symptoms were related to either of the procedures done on 09/17/17. Elida has no fever or chills, has had no sick contacts, has not vomited. She has a generalized feeling of not feeling well and nausea. We discussed that both the HREM and Olmos pH capsule procedures could cause throat irritation and feelings of pressure or having something stuck in the epigastric/chest area but nausea is not a typical side effect of either procedure. Elida is aware that the Olmos capsule can remain in place for longer than a week. She was instructed to call her PCP if her nausea continues or if she has new complaints. She knows she may call us with further concerns and has our contact information. She thanked me for the call. documented in this encounter Plan of Treatment Not on filedocumented as of this encounter Visit Diagnoses Not on filedocumented in this encounter Care Teams Cardiac Monitor Technician Relationship Specialty Start Date End Date Allison Granados APRN PCP - General 04/22/14 06/27/21 [facility] DR ROD INTERNAL [facility] [place] [address] documented as of this encounter
--- OUTSIDE RECORDS SUMMARY | 2021-12-28 04:09 | XMS_ITS | Encounter Summary ---
:1950 Author Organization [facility] [place] [address] Care Team Providers Name Role Phone Allison Granados APRN Primary Care Provider [phone] Encounter Details Date Type Department Care Team Description 09/17/2017 Tech Visit Gastroenterology at [facility] Amarilys Pérez, Non-cardiac chest [facility] [place] [address] [facility] [phone] [place], [place] [address] Social History Tobacco Use Types [...] documented as of this encounter Progress Notes Amarilys Pérez MD - 09/17/2017 4:00 PM EDT HIGH-RESOLUTION ESOPHAGEAL MANOMETRY Elida Monte[place] [address] [place] [address] : 1950 STUDY DATE: 09/17/2017 PROVIDER: Amarilys Pérez MD ([id number]) INDICATION Chest distress METHODS Stationary esophageal manometry was performed with the ManoScan ESO version 3.0 in a supervised setting after verbal consent and after topical anesthesia to the nares. This system uses 36 individual circumferential solid state sensors spaced 1 cm apart. The outer diameter of the probe is 4.2 mm. Length, resting pressure, pressure inversion point (PIP), and relaxation of the lower esophageal sphincter (LES) was measured. The high pressure zone of the upper esophageal sphincter (UES) was measured. Water swallows were provided after a 5-rk-4-minute accommodation period to assess LES function and function of the esophageal body. FINDINGS LES (lower esophageal sphincter) Distal border of LES identified at 42.2 cm. Proximal border of LES identified at 40 cm. Hiatal hernia present? Yes, 1.1 cm Basal pressure respiratory mean pressure 25 mmHg (normal = 15-34 mmHg). Residual mean pressure (integrated relaxation pressure - IRP) 9.2 mmHg (normal = <15 mmHg). BODY OF ESOPHAGUS Water Swallows: 10. Failed: 100%. Transmitted (peristaltic): 0%. Panesophageal pressurization: 0% Premature: 0% Rapid: 0% With large breaks: 50%. With small breaks: 0%. DCI (distal contractile integral): N/A mmHg-cm-s (normal is 450 to 5000 mmHg-cm-s). Contractile front velocity: N/A cm/s (normal is <9.0 cm/s). Intrabolus pressure (average maximum): N/A mmHg (normal is <17.0 mmHg). Distal latency: N/A UES (upper esophageal sphincter) Distal border of UES identified at 19.1 cm and extended to 16.4 cm. UES basal pressure 95 mmHg (normal = 34-104 mmHg). Residual pressure 7.5 mmHg (normal = <12 mmHg). IMPRESSION 1. Normal LES resting pressure. 2. Normal LES relaxation (IRP, integrated relaxation pressure). 3. Normal UES resting pressure. 4. Normal UES relaxation. 5. Abnormal motility in the body of the esophagus. 100% of swallows were failed meeting criteria forabsent contractility, which is a major disorder for peristalsis. The differential includes connective tissue (including scleroderma) and systemic diseases (including diabetes, myxedema, and multiple sclerosis). Even with a normal IRP, achalasia still needs to be considered. *Measurements and diagnostic criteria per Rexford 3.0 Classification. These findings assume that mechanical obstruction has been ruled out. Amarilys Pérez MD Section of Gastroenterology and Hepatology [facility] [place] [address] V: [phone] F: [phone] CC/EC: PCP documented in this encounter Plan of Treatment Not on filedocumented as of this encounter Visit Diagnoses Diagnosis Non-cardiac chest pain Other chest pain documented in this encounter Care Teams Mechanical Fitter Relationship Specialty Start Date End Date Allison Granados, STOKER MECHANIC PCP - General 04/22/14 06/27/[address] [facility] [address] ROD INTERNAL [facility] [place] [address] documented as of this encounter
--- OUTSIDE RECORDS SUMMARY | 2021-12-28 04:09 | XMS_ITS | Encounter Summary ---
:1950 Author Organization [facility] [place] [address] Care Team Providers Name Role Phone Allison Granados APRN Primary Care Provider Reason for Visit Surgical (Routine) - Closed Specialty Diagnoses / Procedures Referred By Contact Refer red To Contact Gastroenterology Diagnoses Dyspepsia Dyspepsia Devi Rosa, [facility] [place] 4t Procedures pH Impedance - 24 Hour IMP OFF meds - HREM done here 09/17/17 [place] [address] [place] [address] Fax: Referral ID Status Reason Start Date Expiration Date Visits V isits Requested Authorized [id number] Closed Consult, 09/26/2017 09/26/2018 1 1 Test & Treat Encounter Details Date Type Department Care Team Description 11/05/2017 Procedure visit [place] [facility] [place]astroesophageal reflux [facility] Marilyn MILLER disease, [place] [address] presence not specified [phone] Social History Tobacco Use Types Packs/Day Years [...] encounter Progress Notes Corin Cortez RN - 11/05/2017 10:00 AM EDT Impedance catheter placed in left naris with minimaldifficulty. Secured at 35cm at the left naris. Testing being performed off acid suppression, confirmed by patient. Impedance teaching performed. Patient verbalized understanding. documented in this encounter Plan of Treatment Scheduled Orders Name Type Priority Associated Diagnoses Order S chedule pH Impedance - 24 Hour Procedures Routine Dyspepsia Order ed: 09/26/2017 documented as of this encounter Visit Diagnoses Diagnosis Gastroesophageal reflux disease, esophag itis presence not specified documented in this encounter Care Teams Seed Trucker Relationship Specialty Start Date End Date Allison Granados APRN PCP - General 04/22/14 06/27/[address] [facility] [address] ROD INTERNAL [facility] [place] [address] documented as of this encounter
--- OUTSIDE RECORDS SUMMARY | 2021-12-28 04:09 | XMS_ITS | Encounter Summary ---
:1950 Author Organization [facility] [place] [address] Care Team Providers Name Role Phone Allison Granados APRN Primary Care Provider [phone] Encounter Details Date Type Department Care Team Description 09/22/2017 Tech Visit Gastroenterology at [facility] Amarilys Pérez Gastroesophageal reflux [facility] Marilyn Camacho [place], [place] [address] One Medical presence not specified [phone] [place] [address] Social History Tobacco Use Types Packs/Day Years [...] encounter Progress Notes Amarilys Pérez MD - 09/22/2017 4:00 PM EDT [id number] WIRELESS pH CAPSULE STUDY AFTER UPPER ENDOSCOPY Elida Montez [address] [facility] [id number] : 1950 STUDY DATE: 09/17/2017 PROVIDER: Amarilys Pérez MD ([id number]) INDICATION GERD Note that this study was performed on of medications used to treat acid reflux. METHODS After upper endoscopy where landmarks were visualized and measured, in a supervised setting, and after informed consent, a Olmos pH telemetry capsule was deployed orally and attached to the esophageal wall at 5 cm above the upper border of the LES. ??No complications were noted during this procedure. FINDINGS Visual inspection of the study shows fluctuations in pH values throughout the study consistent with a technically adequate study. DAY ONE Upright: 11 hours, 37 minutes Supine: 12 hours, 23 minutes Total Number of Reflux Episodes: 2 ? Upright Position: 2 ? Supine Position: 0 ? Reflux Episodes Longer than Five Minutes: 0 ? Upright: 0 ? Supine: ??0 ? Duration of Longest Episode: 0??minute(s) ? Total Distal Esophageal Acid Exposure Time: 0 hour, 0??minute(s). Percent of Total Recording Time: 0% Percent of Upright Recording Time: 0% Percent of Supine Recording Time: 0% Calculated DeMeester Score (normal values are up to 14.72) Day One Calculated DeMeester Score: 0.5 DAY TWO Upright: 13 hours, 58 minutes Supine: 10 hours, 02 minutes Total Number of Reflux Episodes: 0 ? Upright Position: 0 ? Supine Position: 0 ? Reflux Episodes Longer than Five Minutes: 0 ? Upright: 0 ? Supine: ??0 ? Duration of Longest Episode: 0 ??minute(s) ? Total Distal Esophageal Acid Exposure Time: 0 hour, 0??minute(s). Percent of Total Recording Time: 0% Percent of Upright Recording Time: 0% Percent of Supine Recording Time: 0% Calculated DeMeester Score (normal values are up to 14.72) Day One Calculated DeMeester Score: 0.3 Paucq-Qhxqn-Zsdn (Total) Fraction of Time with pH Less Than 4%: 0 Svuhl-Bripg-Kblu DeMeester Score (Total): 0.4 Day One Symptoms Association Probability (SAP) for Chest pain: 0 Regurgitation: 0 Day Two SAP for Heartburn: 0 Chest pain: 0 Regurgitation: 0 Dsaae-Zqnfc-Ofyw SAP for Heartburn: 0 Chest pain: 0 Regurgitation: 0 IMPRESSION This study was performed on acid suppression medication (Nexium 40 mg QHS and Ranitidine 150 mg BID). This study was negative for pathologic reflux. There was minimal acid exposure which either reflects adequate acid suppression through medication or placement of the probe to high above the GE junction. The SAP was negative for heartburn, chest pain, or regurgitation. NORMAL VALUES FOR WIRELESS pH CAPSULE STUDY 1. Total number of reflux episodes = less than 50. 2. Number of episodes longer than 5 minutes = less than 3. 3. Acid exposure time Total = less than 5.3% Upright = less than 6.3% Supine = less than 1.2%. SAP expresses the likelihood that a specific symptom, i.e., heartburn, regurgitation, chest pain, isassociated with acid reflux. ??By convention, SAP values greater than 95% are positive. Amarilys Pérez MD Section of Gastroenterology and Hepatology [facility] [place] [address] V: [phone] F: [phone] CC/EC: PCP documented in this encounter Plan of Treatment Not on filedocumented as of this encounter Visit Diagnoses Diagnosis Gastroesophageal reflux disease, esophag itis presence not specified documented in this encounter Care Teams Legal Support Assistant Relationship Specialty Start Date End Date Allison Granados APRN PCP - General 04/22/14 06/27/[address] [facility] [address] ROD INTERNAL [place] [id number] documented as of this encounter
--- OUTSIDE RECORDS SUMMARY | 2021-12-28 04:09 | XMS_ITS | Encounter Summary ---
:1950 Author Organization [facility] [place] [address] Care Team Providers Name Role Phone Allison Granados APRN Primary Care Provider [phone] Encounter Details Date Type Department Care Team Description 11/06/2017 Tech Visit Gastroenterology at [facility] Amarilys Pérez MD Dyspepsia [facility] [place] [address] [place] [address] [phone] (Wo rk) Social History Tobacco Use Types [...] encounter Progress Notes Amarilys Pérez MD - 11/06/2017 4:00 PM EDT [id number] IMPEDANCE AND pH STUDY STUDY DATE: 11/05/2017 PROVIDER:Amarilys Pérez MD ([id number]) INDICATION: Dyspepsia METHODS: The procedure was explained to the patient and verbal consent obtained. After topical anesthesia to the nose and oropharynx, a combination impedance-pH catheter ([id number]) was passed transnasally and positioned with the pH probe 5.0 cm above the upper border of the LES. Impedance sensor positions were located 3.0, 5.0, 7.0, 9.0, 15.0 and 17.0 cm above the LES. The catheter was secured and appropriate instruction was provided to the patient. No complications were noted. This studywas performed off acid suppressing medications. FINDINGS: I. STUDY DURATION Upright position 18 hours, 12 minute(s). Recumbent position 5 hours, 48 minute(s). II. ACID EXPOSURE Total number of acid reflux events: 67 Upright: 49 Supine: 18 Episodes Longer than Five Minutes: 3 Upright: 0 Supine: 3 Longest Episode: 34 minute(s), supine position Total Acid Exposure Time: 2 hour(s) and 0 minute(s) Which represents 9.0 % of total time 3.3 % of upright time 25.1 % of supine time The calculated DeMeester score was 46 which is above the upper limit of normal of 14.72. III. REFLUX EPISODES (Impedance) Acid: 13 Weakly acidic: 35 Non-acid: 0 Upright position Acid: 12 Weakly acidic: 34 Non-acid: 0 Recumbent position Acid: 1 Weakly acidic: 1 Non-acid: 0 The total number of reflux events was 47, which is below the accepted upper limits of normal of 73. IV. SYMPTOM ASSOCIATION The patient reported 3 episodes of chest pain, none were associated with reflux events (acid or noneacid), and the SAP was 0. The patient reported 30 episodes of regurgitation, 10 were associated withacid reflux events, none were associated with none acid reflux, and the SAP was 97.9. IMPRESSION This study was positive for pathologic acid reflux. The SAP was significant for regurgitation indicating that this symptom is secondary to acid reflux events. The SAP was not significant for chest painindicating that this symptom is not secondary to reflux events. However, the majority of acid eventswere in the supine position and the patient reports nocturnal chest pain, therefore clinical correlation is recommended. Amarilys Pérez MD Section of Gastroenterology and Hepatology [facility] [place] [address] V: [phone] F: [phone] CC/EC: PCP documented in this encounter Plan of Treatment Not on filedocumented as of this encounter Visit Diagnoses Diagnosis Dyspepsia Dyspepsia and other specified disorders of function of stomach documented in this encounter Care Teams Supervisor Type Disk Quality Control Relationship Specialty Start Date End Date Allison Granados APRN PCP - General 04/22/14 06/27/[address] [facility] [address] [place] [address] documented as of this encounter
--- OUTSIDE RECORDS SUMMARY | 2021-12-28 04:09 | XMS_ITS | Encounter Summary ---
:1950 Author Organization [facility] [place] [address] Care Team Providers Name Role Phone Allison Granados APRN Primary Care Provider [phone] Encounter Details Date Type Department Care Team Description 03/06/2018 Office Visit Gastroenterology at [facility] TABITHA Rosa abdominal pain (Primary Dx); [facility] Marilyn Henry MD Gastroesophageal reflux disease, esophag itis presence not specified; [place] [address] [facility] Esophageal dysmotility [phone] [place] [address] Social History Tobacco Use Types Packs/Day Years [...] Sign Reading Time Taken Comments Blood Pressure 118/68 03/06/2018 2:17 PM EDT Pulse 68 03/06/2018 2:17 PM EDT Temperature - - Respiratory Rate - - Oxygen Saturation - - Inhaled Oxygen Concentration - - Weight 53.2 kg (117 lb 4.8 oz) 03/06/2018 2:17 PM EDT Height 154.9 cm (5' 1) 03/06/2018 2:17 PM EDT Body Mass Index 22.16 03/06/2018 2:17 PM EDT documented in this encounter Patient Instructions Patient InstructionsDevi Rosa MD - 03/06/2018 2:30 PM EDT Thank you for coming in to see me today. I think you are doing pretty well, but I want to help you with your acid reflux and left sided pain. Here is the plan we developed together: 1. Take Levsin as needed for left sided cramping. You can use every 6 hours. 2. Take your Nexium 40 mg before breakfast and before dinner. 3. Take your zantac both pills at bedtime. 4. Continue Miralax once daily as you are. 5. Consider additional treatment for your reflux - double dose of Nexium or even adding an agent to help the stomach empty. If casey seltzer works, ok to use. 6. Your next colonoscopy is due in 2019. We can schedule that here with me. 7. Please call me at anytime if the reflux gets worse. documented in this encounter Progress Notes Devi Rosa MD - 03/06/2018 2:30 PM EDT Patient Active Problem List Diagnosis Code ??? [...] R79.89 ??? Gastroesophageal reflux K21.9 LAST VISIT: 08/15/2017 HISTORY OF PRESENT ILLNESS Elida Montez is a 67 y.o. female with GERD and functional bowel disorder predominantly constipation who presents for follow-up visit. At last visit we discussed GERD, fluctuating bowel habits and a new upper pressure/indigestion. I recommended: - try simethicone - pH test/manometry. While I think this symptoms is unlikely to be due to refractory GERD, I think this test will be helpful in reassuring patient. Patient to cancel appt if she improves on simethicone. - continue Nexium 40 mg BID and Zantac 300 mg QHS - once indigestion is better controlled, trial Nexium to 20 mg BID - Metamucil - Stop Miralax ?? HREM showed 100% failed swallows Currently patient reports episodes of LLQ abdominal pain for years that onset randomly and have beensevere enough to cause syncopal episodes. The pain improves somewhat with bowel movements and Tylenol and do not change when she eats. The pain has woken her up from sleep. The pain usually lasts untilshe has a BM but around 01/22/18 the pain lasted for a few days so the patient saw her PCP on 01/23/18. A CT A/P was performed which showed no sigmoid diverticulosis or diverticulitis. No findings to explain left lower quadrant pain. Patient also reports symptoms of GERD that occur from a few times per week to once per month. She takes Nexium 40 mg BID and Zantac at dinner and before bed. Her most recent episode occurred while she was driving but she reports having episodes at home as well. She takes Tums and [place] in addition to her PPI if the symptoms are more severe. Patient previously reported having constipation but has been taking MiraLax every morning and now has 1-4 soft BM daily. Patient reports some dysphagia to solid foods but this has not limited what she can eat. The dysphagia is unpredictable and patient states that she can have difficulty swallowing pills at times but then has no problems at other times. If food or pills become stuck the patient drinks water to help thempass. Medication trials: Nexium 40 mg BID - no improvement in dysphagia Zantac 300 mg QHS - no improvement in dysphagia Miralax PRN - not helpful Metamucil - [...] A/P 01/23/18 no sigmoid diverticulosis or diverticulitis MEDICATIONS Current Outpatient Prescriptions on File Prior to Visit Medication Sig Dispense Refill ??? rOPINIRole (REQUIP) 1 mg Tablet Take 3 tablets by mouth nightly. 180 tablet 3 ??? albuterol 90 mcg/actuation HFA Aerosol Inhaler Inhale 2 puffs into the lungs every 6 hours as needed for Wheezing. Use with spacer 18 g 3 ??? ibandronate (BONIVA) 150 mg Tablet [...] dinner every night. 180 capsule 3 ??? esomeprazole (NEXIUM) 40 mg Capsule, [...] by mouth daily. 90 tablet 3 ??? clobetasol (TEMOVATE) 0.05 % Ointment Apply scant amount topically to vulva daily as instructed until next appointment in 6-8 weeks. 15 g 0 No current facility-administered medications on file prior to visit. Medical, surgical, family, and social histories reviewed. Medications and allergies reviewed. PHYSICAL EXAM: Most Recent Vitals: 03/06/18 1417 BP: 118/68 Pulse: 68 Wt Readings from Last 3 Encounters: 03/06/18 53.2 kg (117 lb 4.8 oz) 01/22/18 52 kg (114 lb 9.6 oz) 11/11/17 51.9 kg (114 lb 6.4 oz) GEN: Alert, cooperative. Pleasant. [...] PLAN Elida Montez is a 67 y.o. who presents for follow-up of GERD and functional bowel disorder. Her GERD symptoms are not fully controlled with her doses of Nexium and Zantac. She is taking the Zantac at dinner time and before bed but would benefit from taking both doses of the Zantac prior to bed. Patient's LLQ abdominal pain is likely due to dysmotility and spasms of her colon as it occurs randomly and improves with bowel movements. More concerning etiologies such as diverticulitis have been ruled out with a CT scan. Her LLQ pain could be improved with hyoscyamine to reduce the spasms. Her constipation has resolved with MiraLax so we will continue to have her take this medication. Patient's last screening colonoscopy was 9 years ago so she will need a colonoscopy next year. We discussed the following recommendations that were printed out for the patient: 1. Trial of anti-spasmotic, Levsin PRN for LLQ cramping. 2. Take both doses of Zantac at bedtime 3. Screening colonoscopy next year All of the patient's questions were answered. Devi Rosa MD Haul Truck Driverappraiser art Section of Gastroenterology [place] [address] documented in this encounter Plan of Treatment Not on filedocumented as of this encounter Visit Diagnoses Diagnosis LLQ abdominal pain - Primary Abdominal pain, left lower quadrant Gastroesophageal reflux disease, esophag itis presence not specified Esophageal dysmotility Dyskinesia of esophagus documented in this encounter Care Teams Coverer Relationship Specialty Start Date End Date Allison Granados APRN PCP - General 04/22/14 06/27/21 [facility] [place] [address] documented as of this encounter
--- OUTSIDE RECORDS SUMMARY | 2021-12-28 04:09 | XMS_ITS | Encounter Summary ---
:1950 Author Organization [facility] [place] [address] Care Team Providers Name Role Phone Roberta Allison Rain APRN Primary Care Provider Reason for Visit Reason Comments Hip Pain Right hip and leg pain. Come s and goes. She states she usually takes her leg medication and it goes away, but last night it was constant all night. Encounter Details Date Type Department Care Team Description 01/30/2017 Office Visit Internal Medicine at [facility] diculopathy of lumbar [address], ADMINISTRATIVE SERVICES DIRECTOR region [address] [place] [address] GENERAL INTERNAL [phone] [place], [place] [address] Social History Tobacco Use Types Packs/Day Years Used Date Never Smoker Smokeless Tobacco: Never Used Alcohol Use Standard Drinks/Week Comments No 0 (1 standard drink = 0.6 oz pure alcoho l) Sex Assigned at Date Recorded Not on file documented as of this encounter Last Filed Vital Signs Vital Sign Reading Time Taken Comments Blood Pressure 112/67 01/30/2017 1:25 PM EDT Pulse 66 01/30/2017 1:25 PM EDT Temperature 37.1 ??C (98.7 ??F) 01/30/2017 1:25 PM EDT Respiratory Rate 14 01/30/2017 1:25 PM EDT Oxygen Saturation 99% 01/30/2017 1:25 PM EDT Inhaled Oxygen Concentration - - Weight 54.7 kg (120 lb 9.6 oz) 01/30/2017 1:25 PM EDT Height - - Body Mass Index 22.79 08/30/2016 9:29 AM EST documented in this encounter Progress Notes Allison Granados APRN - 01/30/2017 1:40 PM EDT Images from the original note were not included. PCP: Allison Granados APRN Chief Complaint Patient presents with ??? Hip Pain Right hip and leg pain. Comes and goes. She states she usually takes her leg medication and it goesaway, but last night it was constant all night. SUBJECTIVE: Elida Montez is a 66 y.o. female who presents for right hip and leg pain. She reports that usually the aleve and the requip take care of the pain, but it did not last night. She was up all night last night. She reports that the pain has been constant today. Mild pain to touch. Pain radiates down into her calf. No back pain. She lifted a few days ago, but not recently. Review of Systems Constitutional: Negative for chills and fever. Musculoskeletal: Positive for arthralgias and myalgias. Negative for back pain and gait problem. Neurological: Negative for weakness and numbness. Allergies Allergen Reactions ??? Codeine Nausea And Vomiting Current Outpatient Prescriptions Medication Sig Dispense Refill ??? ranitidine (ZANTAC) 150 mg Capsule Take 1 capsule by mouth daily. Take before dinner every night. 30 capsule 3 ??? ibandronate (BONIVA) 150 mg Tablet [...] MOUTH AT NIGHT 270 tablet 3 ??? triamcinolone (KENALOG) 0.1 % Cream Apply [...] R94.6 ??? Gastroesophageal reflux K21.9 OBJECTIVE: Vitals: 01/30/17 1325 BP: 112/67 Pulse: 66 Resp: 14 Temp: 37.1 ??C (98.7 ??F) TempSrc: Oral SpO2: 99% Weight: 54.7 kg (120 lb 9.6 oz) PHYSICAL EXAM: Physical Exam Constitutional: She is oriented to person, place, and time. HENT: Head: Normocephalic and atraumatic. Musculoskeletal: Right hip: She exhibits tenderness. She exhibits normal range of motion and normal strength. Lumbar back: She exhibits normal range of motion. Legs: Positive Right SLR. Neurological: She is alert and oriented to person, place, and time. She has normal strength. No sensory deficit. Gait normal. ASSESSMENT & PLAN: Elida was seen today for hip pain. Diagnoses and all orders for this visit: Radiculopathy of lumbar region - predniSONE (DELTASONE) 20 mg Tablet; Take 2 tablets by mouth daily for 5 days. - some symptoms of troch bursitis, but major complaint was leg pain worse with lying flat and improved with getting up and moving around. Worse when laid back down. + SLR radiate to buttocks. documented in this encounter Plan of Treatment Not on filedocumented as of this encounter Visit Diagnoses Diagnosis Radiculopathy of lumbar region Thoracic or lumbosacral neuritis or radi culitis, unspecified documented in this encounter Care Teams It Application Architect Relationship Specialty Start Date End Date Allison Granados APRN PCP - General 04/22/14 06/27/21 [facility] [address] [place] [address] documented as of this encounter
--- OUTSIDE RECORDS SUMMARY | 2021-12-28 04:09 | XMS_ITS | Encounter Summary ---
:1950 Author Organization [facility] [place] [address] Care Team Providers Name Role Phone Allison Granados APRN Primary Care Provider [phone] Reason for Referral Consultation (Routine) - Closed Specialty Diagnoses / Procedures Referred By Contact Refer red To Contact Gastroenterology Diagnoses Gastroesophageal reflux disease without esophagitis Allison Granados [facility] Gastro 4l MANAGER HEAVY DUTY [facility] GENERAL INTERNAL [place], [place] [address] [address] [place] [address] Referral ID Status Reason Start Date Expiration Date Visits V isits Requested Authorized [id number] Closed Specialty 02/10/2017 02/10/2018 1 1 Service Requested Reason for Visit Reason Comments Joint Pain followup Encounter Details Date Type Department Care Team Description 02/10/2017 Office Visit Internal Medicine Allison Granados oesophageal reflux disease without esophagitis; at [facility] SOILA Rain Adjustment disorder with mixed anxiety a nd depressed mood [address] [place] [address] GENERAL INTERNAL [phone] [address] [place], [place] [address] Social History Tobacco Use Types Packs/Day Years Used Date Never Smoker Smokeless Tobacco: Never Used Alcohol Use Standard Drinks/Week Comments No 0 (1 standard drink = 0.6 oz pure alcoho l) Sex Assigned at Date Recorded Not on file documented as of this encounter Last Filed Vital Signs Vital Sign Reading Time Taken Comments Blood Pressure 101/67 02/10/2017 7:52 AM EDT Pulse 75 02/10/2017 7:52 AM EDT Temperature - - Respiratory Rate - - Oxygen Saturation 99% 02/10/2017 7:52 AM EDT Inhaled Oxygen Concentration - - Weight 54.3 kg (119 lb 12.8 oz) 02/10/2017 7:52 AM EDT Height 154.9 cm (5' 1) 02/10/2017 7:52 AM EDT Body Mass Index 22.64 02/10/2017 7:52 AM EDT documented in this encounter Patient Instructions Patient InstructionsLaAllison jackson APRN - 02/10/2017 8:00 AM EDT 1.) Please start prozac, one tablet daily. 2.) increase Ranitidine to 1 tablet twice a day 3.) follow up in about a month 4.) GI will call you to set up an appointment documented in this encounter Progress Notes Allison Granados APRN - 02/10/2017 8:00 AM EDT PCP: Allison Granados APRN Chief Complaint Patient presents with ??? Joint Pain followup SUBJECTIVE: Elida Montez is a 66 y.o. female who presents for lumbar radiculopathy pain and on her chest pain. Lumbar radiculopathy- she reports that the prednisone helped. She has dull pain, but it is better. Chest pain - she has history of intermittent chest pain and has been seein in ED in past for it. Shehad stress echo and endoscopy last year. She reports that she was in ER on 02/03/17 for chest pain. She reports that she had severe mid chest pain. She was seen at [facility] and enzymes were negative. She hubert nexium and zantac and that does not seem to help prevent these episodes. She reports that she has had a lot of change in her voice and a lump sensation in her throat. Mood- she has felt irritable in the last few months. She reports difficulty sleeping, being restlessat times. Her mother of CMML at age 86. She was diagnosed less than 2 months prior to her passing away. Review of Systems Constitutional: Positive for fatigue. Negative for chills and fever. HENT: Positive for voice change. Respiratory: Positive for chest tightness. Negative for cough and shortness of breath. Cardiovascular: Negative for chest pain. Gastrointestinal: Positive for abdominal pain. Negative for diarrhea, nausea and vomiting. Psychiatric/Behavioral: Positive for dysphoric mood and sleep disturbance. Negative for self-injury and suicidal ideas. The patient is nervous/anxious. Allergies Allergen Reactions ??? Codeine Nausea And Vomiting Current Outpatient Prescriptions Medication Sig Dispense Refill ??? albuterol (PROVENTIL HFA;VENTOLIN HFA;PROAIR) 90 mcg/actuation HFA Aerosol Inhaler Inhale 2 puffs into the lungs as needed. Use with spacer 1 Inhaler 3 ??? ranitidine (ZANTAC) 150 mg Capsule [...] minutes before dinner. 30 capsule 12 ??? ferrous sulfate 325 mg (65 [...] R94.6 ??? Gastroesophageal reflux K21.9 OBJECTIVE: Vitals: 02/10/17 0752 BP: 101/67 Pulse: 75 SpO2: 99% Weight: 54.3 kg (119 lb 12.8 oz) Height: 154.9 cm (5' [...] wheezes. She has no rales. She exhibits tenderness (chest wall tenderness to palpation. ). Abdominal: Soft. Bowel sounds are normal. There is tenderness (mid-epigastric area). There is no rebound. Neurological: She is alert and oriented to person, place, and time. Skin: Skin is warm and dry. Psychiatric: She has a normal mood and affect. Her behavior is normal. Judgment and thought content normal. Vitals reviewed. ASSESSMENT & PLAN: Elida was seen today for joint pain. Diagnoses and all orders for this visit: Gastroesophageal reflux disease without esophagitis - Referral to Gastroenterology - ranitidine (ZANTAC) 150 mg Capsule; Take 1 capsule by mouth 2 times daily. Take before dinner every night. - will increase zantac to BID with nexium - patient still having episodes of chest discomfort even on nexium. Will refer to GI for further evaluation. ? If she is having esophageal spasms when she has the symptoms. Adjustment disorder with mixed anxiety and depressed mood - FLUoxetine (PROZAC) 20 mg Tablet; Take 1 tablet by mouth daily. - likely related to loss of her mother suddenly, will have her start prozac to see if will help withsymptoms. - f/u 4 weeks documented in this encounter Plan of Treatment Scheduled Referrals Name Type Priority Associated Diagnoses Order S chedule Referral to Outpatient Routine Gastroesophageal Ordered: Gastroenterology Referral reflux disease without 0 02/10/2017 esophagitis documented as of this encounter Visit Diagnoses Diagnosis Gastroesophageal reflux disease without esophagitis Esophageal reflux Adjustment disorder with mixed anxiety a nd depressed mood documented in this encounter Care Teams Elevated Work Platform Operator Relationship Specialty Start Date End Date Allison Granados APRN PCP - General 04/22/14 06/27/[address] [facility] [address] ROD INTERNAL [facility] [place] [place] [address] documented as of this encounter
--- OUTSIDE RECORDS SUMMARY | 2021-12-28 04:09 | XMS_ITS | Encounter Summary ---
:1950 Author Organization [facility] [place] [address] Care Team Providers Name Role Phone Allison Granados APRN Primary Care Provider [phone] Reason for Visit Reason Comments Follow-up Encounter Details Date Type Department Care Team Description 09/05/2016 Office Visit Obstetrics and Gynecology Remy Davis Vulvar lesion at [facility] A, [facility] [address] [facility] [place] [address] OBSTETRICS & [phone], [place] [address] (Wo rk) Social History Tobacco Use Types Packs/Day Years Used Date Never Smoker Smokeless Tobacco: Never Used Alcohol Use Standard Drinks/Week Comments No 0 (1 standard drink = 0.6 oz pure alcoho l) Sex Assigned at Date Recorded Not on file documented as of this encounter Last Filed Vital Signs Vital Sign Reading Time Taken Comments Blood Pressure 100/56 09/05/2016 7:50 AM EST Pulse - - Temperature - - Respiratory Rate - - Oxygen Saturation - - Inhaled Oxygen Concentration - - Weight - - Height - - Body Mass Index - - documented in this encounter Progress Notes Perri Mckoy LPN - 09/05/2016 8:00 AM EST all better Marcella Davis CNM - 09/05/2016 8:00 AM EST Department of Gas Station Supervisor Established Patient - Follow up visit PCP: SOILA Akbar Nikolay Montez is a 65 y.o. year old woman who is here today for: follow up vulvar lesion Ms Montez saw me on 07/19/16 for complaint of vulvar lesion of one month duration which was red and sore. She had been seen for similar symptoms in 04/2016. On exam she was found to have 2 small (2-3) mm very shallow oval ulcerations/abrasions on the lower aspect of R inner labia minora. There were no other lesions or skin changes. Dr Wen was involved in examination and making plan of care. A biopsy was done which came back showing DIAGNOSIS Vulvar lesion, right inner labium, biopsy: Epidermal acanthosis and hyperkeratosis with focus??of ulceration and inflammation, cannot exclude d-STEFF. DISCUSSION: The sections show epidermal acanthosis associated with [...] area until reevaluation in 6-8 weeks. She is here for reevaluation today. She has been using the clobetasol scant amt daily. She says thatthe lesions are completely gone and her symptoms are completely gone. She has no itching, burning, irritation or any other symptoms. She uses oxybutynin for urgency incontinence, had seen Torrey Valle NETWORK SYSTEMS ANALYST for this last year. Her dose had been increased to 10 mg but she said in Jul that the 10 mg tab did not seem to be absorbed and she was not getting benefit. She requested going back to 5 mg dose which I prescribed. She says today that the 5 mg works better for her, if she voids before going for a walk she is not having any problems. She has no complaints today. She is postmenopausal and denies vaginal bleeding or spotting. No abdominal or pelvic pain or discomfort, no change in bowel function. No dysuria or other urinary complaints. No abnormal vaginal discharge, no vulvovaginal itching, irritation, discomfort. 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 Hx abnormal paps: none Last pap: per pt she had paps to age 63, normal Hx STDs: none Her PMHx is significant for osteopenia, on boniva; renal mass with followup planned; low ferritin level on iron supplementation; RLS on requip; gerd; hypothyroid; chest pain s/p nl stress test, followed by PCP. Patient Active Problem List Diagnosis ??? Asthma [...] IBS (irritable bowel syndrome) ??? Urinary frequency No past medical history on file. Past Surgical History Procedure Laterality Date ??? Cholecystectomy, laparoscopic ??? Tonsillectomy and adenoidectomy ??? Cataract removal ??? Eye surgery macular hole ??? Pro upper gi endoscopy, diagnostic N/A 12/25/2015 EGD, UPPER GI ENDOSCOPY performed by Jeff Schneider MD at [facility] ENDOSCOPY SOCIAL/HEALTH RELATED HABITS: Social History Narrative She has a sister with history of Myasthenia Gravis. 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 Social History Substance Use Topics ??? Smoking status: Never Smoker ??? Smokeless tobacco: Never Used ??? Alcohol use No Current Outpatient Prescriptions on File Prior to Visit Medication Sig Dispense Refill ??? ranitidine (ZANTAC) 150 mg Capsule Take 1 capsule by mouth daily. Take before dinner every night. 30 capsule 3 ??? fluticasone-salmeterol (ADVAIR DISKUS) 250-50 mcg/dose [...] minutes before dinner. 30 capsule 12 ??? rOPINIRole (REQUIP) 0.5 mg Tablet TAKE [...] finger as needed. 30 g 3 ??? albuterol (PROVENTIL HFA;VENTOLIN HFA;PROAIR) 90 mcg/actuation HFA Aerosol Inhaler Inhale 2 puffs into the lungs as needed. Use with spacer (Patient not taking: Reported on 09/05/2016) 1 Inhaler 3 ??? ferrous sulfate 325 mg (65 mg iron) Tablet, Delayed Release (E.C.) Take 1 tablet by mouth daily.(Patient not taking: Reported on 09/05/2016) 90 tablet 3 No current facility-administered medications on file prior to visit. Allergies Allergen Reactions ??? Codeine Nausea And Vomiting EXAM: problem focussed BP 100/56 General: well appearing woman in NAD Vulva: Atrophic changes c/w postmenopausal status. Normal vulvar anatomy..There are hyperpigmentation changes on the inner labia bilaterally unchanged from last exam (see photo in scan doc), otherwise normal color and texture. On the area where she previously had ulceration on lower aspect of the R inner labia minora there are no lesions, ulceration or color changes. There are no lesions, ulcerations, nodules, excoriation, fissuring, white epithelium or other vulvar skin changes. Urethral meatus: wnl, BUS neg; atrophic changes c/w postmenopausal status. PLAN: Discussed pt and today's exam findings with Dr Wen. She is to use decrease clobetasol to 2-3 times/ week for a month, then discontinue. RV for reevaluation in 6 mos, sooner if she has any symptoms or notices any skin changes. She agrees with this plan. We also discussed that she is due for a mammogram which she gets here. She will make an appt for later this year. RV/call prn questions, concerns, problems. Marcella Davis CNM, MSN documented in this encounter Plan of Treatment Not on filedocumented as of this encounter Visit Diagnoses Diagnosis Vulvar lesion Other specified noninflammatory disorder of vulva and perineum documented in this encounter Care Teams Barge Worker Relationship Specialty Start Date End Date Allison Granados, SOILA PCP - General 04/22/14 06/27/[address] [facility] [place] [address] documented as of this encounter
--- OUTSIDE RECORDS SUMMARY | 2021-12-28 04:09 | XMS_ITS | Encounter Summary ---
:1950 Author Organization [facility] [place] [address] Care Team Providers Name Role Phone Allison Granados APRN Primary Care Provider [phone] Reason for Referral Diagnostic Test (Routine) - Closed Specialty Diagnoses / Procedures Referred By Contact Refer red To Contact Radiology Diagnoses Age-related osteoporosis without current pathological fracture Other osteoporosis without current pathological fracture Allison Granados [facility] Rad Xray Procedures DXA Central-Spine, Hip, And/Or Whole Body (Generic) NATIONAL SALES TRAINER [address] [place] [address] [place] [address] GENERAL INTERNAL Phone: [place] [address] Referral ID Status Reason Start Date Expiration Date Visits V isits Requested Authorized [id number] Closed Specialty 05/18/2018 05/18/2019 1 1 Service Requested Reason for Visit Diagnostic Test (Routine) - Closed Specialty Diagnoses / Procedures Referred By Contact Refer red To Contact Radiology Diagnoses Age-related osteoporosis without current pathological fracture Other osteoporosis without current pathological fracture Allison Granados [facility] Rad Xray Procedures DXA Central-Spine, Hip, And/Or Whole Body (Generic) NATIONAL SALES TRAINER [address] [place] [address] GENERAL INTERNAL Phone: [place] [address] Referral ID Status Reason Start Date Expiration Date Visits V isits Requested Authorized [id number] Closed Specialty 05/18/2018 05/18/2019 1 1 Service Requested Encounter Details Date Type Department Care Team Description 05/25/2018 Hospital Encounter XRay at [facility] RobertaAllison Age-related osteoporosis wit hout current pathological fracture; [address] Koffi APRN Other osteoporosis without current patho logical fracture [facility] [address] CENTER [phone] GENERAL INTERNAL [place], [place] [address] Social History Tobacco Use Types [...] Name Priority Date/Time Associated Diagnosis Comme nts DXA CENTRAL SPINE, Routine 05/25/2018 9:17 AM Age-related Res ults for this HIP, AND/OR WHOLE EST osteoporosis without pr ocedure are in BODY (GENERIC) current pathological the r esults fracture section. Other osteoporosis without current pathological fracture documented in this encounter Results DXA Central-Spine, [...] measurements an d plots are available in [employer] under the imaging tab. Paper copies will be sent to providers without E- access. If you have received this report without th e data sheet and do not have access to [employer], please contact Radiology Transcrip tion at [phone] Friday thru Friday 8am-4pm. Narrative 05/25/2018 10:09 AM EST EXAMINATION: DXA CENTRAL-SPINE, HIP, AND/OR WHOLE BODY (GENERIC) CLINICAL HISTORY: 67-year-old postmenopa usal woman with history of osteoporosis on Boniva since about 2014 TECHNIQUE[facility]. COMPARISON: Previous scan: [...] measurements an d plots are available in [employer] under the imaging tab. Paper copies will be sent to providers without [employer] access. If you have received this report without th e data sheet and do not have access to [employer] [facility]-, please contact Radiology Transcrip tion at [phone] Friday thru Friday 8am-4pm. Allison W Roberta NATIONAL SALES TRAINER IMG DEXA ORDERABLES documented in this encounter Visit Diagnoses Diagnosis Age-related osteoporosis without current pathological fracture Senile osteoporosis Other osteoporosis without current patho logical fracture documented in this encounter Care Teams Flat Breakdown Processor Relationship Specialty Start Date End Date Allison Granados APRN PCP - General 04/22/14 06/27/[address] [facility] [address] ROD INTERNAL [facility] [place] [address] documented as of this encounter
--- OUTSIDE RECORDS SUMMARY | 2021-12-28 04:09 | XMS_ITS | Encounter Summary ---
:1950 Author Organization [facility] [place] [address] Care Team Providers Name Role Phone Allison Granados APRN Primary Care Provider [phone] Encounter Details Date Type Department Care Team Description 08/22/2017 Telephone Internal Medicine at [place] Allison Murphy, LIBRARY MONITOR Road [facility] [address] Gutier[facility] [place] [address] [place] [address] [phone] (Wo rk) Social History Tobacco Use Types [...] Telephone Encounter - Allison Granados APRN - 08/22/2017 4:30 PM EST Called patient to discuss results of thyroid. They do recommend f/u in 1-2 year for stability. documented in this encounter Plan of Treatment Not on filedocumented as of this encounter Visit Diagnoses Not on filedocumented in this encounter Care Teams Customer Support Professional Relationship Specialty Start Date End Date Allison Granados APRN PCP - General 04/22/14 06/27/[address] [facility] [place] [address] documented as of this encounter
--- OUTSIDE RECORDS SUMMARY | 2021-12-28 04:09 | XMS_ITS | Encounter Summary ---
:1950 Author Organization [facility] [place] [address] Care Team Providers Name Role Phone Allison Granados APRN Primary Care Provider [phone] Reason for Visit Reason Onset Date Comments Medication Refill 02/24/2017 Encounter Details Date Type Department Care Team Description 02/24/2017 Refill Internal Medicine at [facility] Janice Nguyen [address] [place], [place] [id number] Social History Tobacco Use Types Packs/Day Years Used Date Never Smoker Smokeless Tobacco: Never Used Alcohol Use Standard Drinks/Week Comments No 0 (1 standard drink = 0.6 oz pure alcoho l) Sex Assigned at Date Recorded Not on file documented as of this encounter Miscellaneous Notes Telephone Encounter - Janice Nguyen - 02/24/2017 10:02 AM EDT Patient is out of medication and asking that we please call this in today. documented in this encounter Plan of Treatment Not on filedocumented as of this encounter Visit Diagnoses Not on filedocumented in this encounter Care Teams Franchise Development Manager Relationship Specialty Start Date End Date Allison Granados APRN PCP - General 04/22/14 06/27/21 [facility] GENERAL INTERNAL [place] [address] documented as of this encounter
--- OUTSIDE RECORDS SUMMARY | 2021-12-28 04:09 | XMS_ITS | Encounter Summary ---
:1950 Author Organization [facility] [place] [address] Care Team Providers Name Role Phone Allison Granados APRN Primary Care Provider [phone] Encounter Details Date Type Department Care Team Description 01/22/2018 Telephone Internal Medicine at [place] Pilar Vo, RN [address] [place] [address] Social History Tobacco Use Types [...] this encounter Miscellaneous Notes Telephone Encounter - Wesley Vo RN - 01/22/2018 9:43 AM EDT Caller: patient Learning Needs Assessment Reviewed: No Subjective L back pain, L groin pain Objective/Assessment Symptom onset: back pain started a few days ago, groin pain started yesterday Location: L back, L groin Duration: constant Characteristics: back pain feels as if she twisted wrong, groin pain kept patient in bed most of the day yesterday, pain is making her nauseous, a- febrile, denies and problems with urination or bowelmovements Aggravating factors: ambulation increases groin pain Relieving factors: rest Severity: 10/ with ambulation Past Medical History: Past Medical History: Diagnosis Date ??? Asthma ??? GERD (gastroesophageal reflux disease) Plan Intervention/Plan/ Follow Up: Appointment made today with Dr. Campbell at 3pm documented in this encounter Plan of Treatment Not on filedocumented as of this encounter Visit Diagnoses Not on filedocumented in this encounter Care Teams Gas Scrubber Operator Relationship Specialty Start Date End Date Allison Granados APRN PCP - General 04/22/14 06/27/[address] [facility] [address] ROD INTERNAL [facility] [place] [address] documented as of this encounter
--- OUTSIDE RECORDS SUMMARY | 2021-12-28 04:10 | XMS_ITS | Encounter Summary ---
:1950 Author Organization [facility] [place] [address] Care Team Providers Name Role Phone Roberta Allison Rain APRN Primary Care Provider [phone] Encounter Details Date Type Department Care Team Description 12/25/2015 Surgery Gastroenterology at [facility] Jeff Schneider EGD, UPPER GI [facility] Marilyn Camacho [place] [address] [facility] [phone] GASTROENTEROLOGY DEPT. [place], [place] [address] Social History Tobacco Use Types Packs/Day Years Used Date Never Smoker Smokeless Tobacco: Never Used Alcohol Use Standard Drinks/Week Comments No 0 (1 standard drink = 0.6 oz pure alcoho l) Sex Assigned at Date Recorded Not on file documented as of this encounter Last Filed Vital Signs Vital Sign Reading Time Taken Comments Blood Pressure 126/68 12/25/2015 8:00 AM EDT Pulse 84 12/25/2015 8:00 AM EDT Temperature - - Respiratory Rate 16 12/25/2015 8:00 AM EDT Oxygen Saturation 97% 12/25/2015 8:00 AM EDT Inhaled Oxygen Concentration - - Weight - - Height - - Body Mass Index - - documented in this encounter Discharge Instructions Discharge InstructionsJeJamee rowland RN - 12/25/2015 7:57 AM EDT UPPER GI ENDOSCOPY WHAT TO EXPECT AFTER THE PROCEDURE After the test you may feel a little more gassy or bloated than usual, this is normal. ACTIVITY Because of the sedation that you received Your judgement and reaction time are affected ?? Go home and rest quietly for the remainder of the day. You may resume your normal activities tomorrow. ?? Change from one position to the next slowly. You may lose your balance unexpectedly Be careful on stairs, as you may be unsteady on your feet. FOR THE NEXT 24 HRS ?? DO NOT DRIVE OR OPERATE ANY MACHINERY ?? DO NOT DRINK ALCOHOLIC BEVERAGES ?? DO NOT SIGN LEGAL DOCUMENTS ?? If you are a smoker: DO NOT SMOKE WHILE YOU ARE ALONE Diet ?? Start by eating small portions of foods that ordinarily will not upset your stomach. Be gentle with what you choose to start with. ?? Drink plenty of fluids ( unless otherwise told not to) Medications You may have a mild sore throat. Ice chips, popsicles, over the counter throat lozenges or spray may help numb your throat. This procedure should not cause a fever. IV SITE-- slight redness or tenderness is normal, you can use warm compresses if you get concerned.If the tenderness +/or redness increases or foul drainage and a red streak occurs, please contact your PCP immediately. WHEN SHOULD YOU CALL FOR HELP? Call 911 anytime you think that you need emergency care. For example, call if: You passed out (lost consciousness). You cough up blood. You vomit blood or what looks like coffee grounds. You pass maroon or very bloody stools. Call your healthcare provider or seek immediate medical attention if: You have trouble swallowing. You have belly pain. Your stools are black or tarlike or have streaks of blood. You are sick to your stomach or cannot keep fluids down. Watch closely for changes in your health, and be sure to contact your doctor IF Your throat still hurts after a day or two You do not get better as expected. Friday-Friday Same Day Endo [phone] 7a-8p Otherwise contact [phone] and ask to speak to the deep well contractor electronic prepress operator Follow-up care is a camacho part of your treatment and safety. Be sure to make and go to all appointments, and call your doctor if you are having problems. Instructions have been reviewed and patient expresses understanding documented in this encounter Medications at Time of Discharge Medication Sig Dispensed Refills Start Date End Date oxybutynin (DITROPAN-XL) Take 1 tablet by 30 tablet 3 12/0401/01/2016 10 mg Tablet Extended mouth daily. Rel 24 hrIndications: Urge incontinence SYMBICORT 160-4.5 INHALE ONE PUFF BY 10.2 Inhaler 12 11/09/19 16 08/13/2016 mcg/actuation HFA MOUTH TWICE A DAY Aerosol Inhaler ibandronate (BONIVA) 150 Take 1 tablet by 1 tablet 12 11/0111/21/2016 mg Tablet mouth every 30 days. Take in AM with full glass of water, on an empty stomach. Do not lie down for 30 min. omeprazole (PRILOSEC) 20 Take 1 capsule by 60 capsule 11 10/0607/19/2016 mg Capsule, Delayed mouth 2 times Release(E.C.)Indications daily (before : Gastroesophageal meals). reflux disease without esophagitis triamcinolone (KENALOG) Apply 1 30 g 3 10/30/2015 0 03/11/2017 0.1 % Cream Application topically as needed. Topically around left 4th finger as needed. rOPINIRole (REQUIP) 0.5 Take 3 tablets by 90 tablet 3 10/0802/21/2016 mg Tablet mouth nightly. albuterol (PROVENTIL Inhale 2 puffs 1 Inhaler 3 05/04/2015 04/29/2016 HFA;VENTOLIN HFA;PROAIR) into the lungs as 90 mcg/actuation HFA needed. Use with Aerosol Inhaler spacer ferrous sulfate 325 mg Take 1 tablet by 90 tablet 3 015 04/29/2016 (65 mg iron) Tablet, mouth daily. Delayed Release (E.C.) documented as of this encounter H&P Notes Jeff Schneider MD - 12/25/2015 7:31 AM EDT Gastroenterology and Hepatology Pre-Procedure History and Physical Exam Procedure: EGD: Indication: abdominal pain Patient Active Problem List Diagnosis Code ??? Radiculopathy of lumbar region M54.16 ??? Renal mass N28.89 ??? Neck pain M54.2 ??? Asthma J45.909 ??? Health care maintenance Z00.00 ??? Pain in limb (LEG) M79.609 ??? Osteopenia M85.80 ??? Restless leg syndrome G25.81 ??? Low ferritin level R79.0 ??? IBS (irritable bowel syndrome) K58.9 ??? Urinary frequency R35.0 EXAM: HEENT: Airway examined, oropharynx clear Mallampati Score: I (soft palate, uvula, fauces, tonsillar pillars visible) LUNGS: Clear to auscultation HEART: Regular rate and rhythm, normal S1, S2 ABDOMEN: Normal bowel sounds, soft, non tender, non distended, A/P Proceed with the planned endoscopic procedure. ASA 1 - Normal health patient Sedation Plan: moderate (conscious sedation) Risks and benefits of the procedure explained to the patient. Consent signed. documented in this encounter Plan of Treatment Not on filedocumented as of this encounter Procedures Procedure Name Priority Date/Time Associated Diagnosis Comme nts EGD, UPPER GI 12/25/2015 7:40 AM Dyspepsia ENDOSCOPY EDT IV SED UPPER GI ENDOSCOPY Routine 12/25/2015 7:25 AM Res ults for this EDT procedure are i n the results section. documented in this encounter Results UPPER GI ENDOSCOPY (12/25/2015 7:25 AM EDT) [facility] gist Method Time Signature UPPER GI [facility] ENDOSCOPY Endoscopy Patient Name: Elida Montez ? Procedure Date: 12/25/2015 7:25 AM ? Date of : 1950 ? Age: 65 ? Order #: [id number] ? Procedure: ? Upper GI endoscopy Indications: ? Abdominal pain Providers: ? Jeff Schneider MD, Janki Crews ? JENI Wayne, Juan Leonard MD: ?Allison Granados Medicines: ? Midazolam 3 mg IV, Fentanyl 100 ? micrograms IV Complications: ? No immediate complications. Procedure: ? Pre-Anesthesia Assessment: ? - Prior to the procedure, a H istory ? and Physical was performed, a nd ? patient medications, allergie s and ? sensitivities were reviewed. The ? patient's tolerance of previo us ? anesthesia was reviewed. ? - The risks and benefits of t he ? procedure and the sedation op tions ? and risks were discussed with the ? patient. All questions were a nswered ? and informed consent was obta ined. ? The procedure, indications, b enefits, ? [...] tolerated the procedure well. ? Findings: ? The examined esophagus was normal. ? The Z-line was regular and was found 35 cm from the ? incisors. ? The entire examined stomach was normal. ? The examined duodenum was normal. ? Impression: ?- Normal esophagus. ? - Z-line regular, 35 cm from the ? incisors. ? - Normal stomach. ? - Normal examined duodenum. ? - No specimens collected. Jeff Schneider MD 12/25/2015 7:52:11 AM Number of Addenda: 0 Note Initiated On: 12/25/2015 7:25 AM Specimen (Source) Anatomical Collection Method Collection Time Re ceived Time Location / / Volume Laterality 12/25/2015 7:25 AM EDT Allison Koffi Roberta [employer] GENERAL SURGICAL ORDERABLES Performing Organization Address City/State/ZIP Code Phon e Number [facility] documented in this encounter Visit Diagnoses Not on filedocumented in this encounter Administered Medications Inactive Administered Medications - up to 3 most recent administrations Medication Order MAR Action Action Date Dose Rate Site fentaNYL 50 mcg/mL multi-dose Given 12/25/2015 7:48 AM EDT 25 mc g injection ONCE PRN, Starting on 12/25/15 at 0742, Until Fri12/25/15 at 1023, Intra-Operative (Intra-Procedure), Routine Given 12/25/2015 7:45 AM EDT 25 mcg Given 12/25/2015 7:42 AM EDT 50 mcg midazolam (PF) (VERSED) 1 mg/mL multi-dose Given 12/25/2015 7:48 AM EDT 0.5 mg injection ONCE PRN, Starting on 12/25/15 at 0742, Until 12/25/15 at 1023, Intra-Operative (Intra-Procedure), Routine Given 12/25/2015 7:45 AM EDT 0.5 mg Given 12/25/2015 7:42 AM EDT 2 mg documented in this encounter Active and Recently Administered Medications Times are shown in EDT. PRN Medication Order 12/23/2015 12/24/2015 12/25/2015 fentaNYL 50 mcg/mL multi-dose injection (CANCELED) 0742 (Given - Provider: Janki Wayne, JENI)0745 (Given - Provider: Janki Wayne, JENI)0748 (Given - Provider: Janki Wayne RN) ONCE PRN, Starting 12/25/15 at 0742, Until 6/20/16 at 1023, Intra- Operative (Intra-Procedure), Routine midazolam (PF) (VERSED) 1 mg/mL multi-dose injection (CANCELED) 0742 (Given - Provider: Janki Wayne, JENI)0745 (Given - Provider: Janki Wayne, RN)0748 (Given - Provider: Janki Wayne, JENI) ONCE PRN, Starting Fri12/25/15 at 0742, Until Fri12/25/15 at 1023, Intra- Operative (Intra-Procedure), Routine documented in this encounter Care Teams Shingle Inspector Relationship Specialty Start Date End Date Allison Granados APRN PCP - General 04/22/14 06/27/[address] [facility] [place] [address] documented as of this encounter
--- OUTSIDE RECORDS SUMMARY | 2021-12-28 04:10 | XMS_ITS | Encounter Summary ---
:1950 Author Organization [facility] [place] [address] Care Team Providers Name Role Phone Roberta Allison Rain APRN Primary Care Provider [phone] Encounter Details Date Type Department Care Team Description 06/10/2016 Laboratory Appointment Lab 3L Dixie Sabino Hypothyroidism, [facility] [place] [id number] Social History Tobacco Use Types Packs/Day Years [...] Date/Time Associated Diagnosis Comme nts TSH Routine 06/10/2016 10:01 AM Hypothyroidism, Resul ts for this EST unspecified type procedure a re in the results section. documented in this encounter Results TSH (06/10/2016 10:01 AM EST) P athologist Signature TSH 3.23 0.27 - 4.20 DIXIE FRIED mcIU/mL [facility] Specimen Anatomical Collection Method Collection Time Receive d Time (Source) Location / / Volume Laterality Blood specimen 06/10/2016 10:01 6 (specimen) AM EST 10:09 AM EST Resulting Agency Comment Spec In Lab Lorri Moran MD CHEMISTRY ORDERABLES Performing Organization Address City/State/[place] [address] documented in this encounter Visit Diagnoses Diagnosis Hypothyroidism, unspecified type documented in this encounter Care Teams Chip Drier Relationship Specialty Start Date End Date Allison Granados, SOILA PCP - General 04/22/14 06/27/[address] [facility] [place] [address] [place] [address] documented as of this encounter
--- OUTSIDE RECORDS SUMMARY | 2021-12-28 04:10 | XMS_ITS | Encounter Summary ---
:1950 Author Organization [facility] [place] [address] Care Team Providers Name Role Phone Allison Granados APRN Primary Care Provider [phone] Reason for Visit Reason Onset Date Comments Follow-up 12/05/2015 ED Follow up Encounter Details Date Type Department Care Team Description 12/05/2015 Telephone Internal Medicine at Janice Nguyen ow-up (ED Follow up) [address] [address] Social History Tobacco Use Types Packs/Day Years Used Date Never Smoker Smokeless Tobacco: Never Used Alcohol Use Standard Drinks/Week Comments No 0 (1 standard drink = 0.6 oz pure alcoho l) Sex Assigned at Date Recorded Not on file documented as of this encounter Miscellaneous Notes Telephone Encounter - Brianna Vazquez RN - 12/05/2015 1:38 PM EDT Called patient back. She reports that she had severe abdominal pain yesterday afternoon and passed out while she was on the toilet. Fell and hit her head, no LOC. Her brought her to the [facility] ED. We do not have those notes yet, however, she reports that she had a head CT, abdominal CT, labwork, urine, EKG. States that only abnormal finding was an elevated white count. She feels fine today. I scheduled her to see Leta Granados next Friday. Meanwhile, I'll make sure we get the ED records. Addendum: ED notes received. Placed in Leta Granados's mail folder. Telephone Encounter - Janice Nguyen - 12/05/2015 12:55 PM EDT Please call patient to discuss Emergency Room Follow Up Symptoms: severe abdominal pain - passed out Which ED: [facility] Records Sent: PT states they sent them Caller and Relationship (if other than patient): Self Best time to call back: Before 2pm Okay to leave a message: Y Okay to send my- message: N Nurse contacted via: Message: X Call: Pager: documented in this encounter Plan of Treatment Not on filedocumented as of this encounter Visit Diagnoses Not on filedocumented in this encounter Care Teams Hospital Housekeeper Relationship Specialty Start Date End Date Allison Granados APRN PCP - General 04/22/14 06/27/[address] [facility] [place] [address] documented as of this encounter
--- OUTSIDE RECORDS SUMMARY | 2021-12-28 04:10 | XMS_ITS | Encounter Summary ---
:1950 Author Organization [facility] [place] [address] Care Team Providers Name Role Phone Allison Granados APRN Primary Care Provider [phone] Reason for Visit Reason Onset Date Comments Triage 10/23/2015 Encounter Details Date Type Department Care Team Description 10/23/2015 Telephone Internal Medicine at [facility] Deena Vora Triage [address] [place] [address] Social History Tobacco Use Types Packs/Day Years Used Date Never Smoker Smokeless Tobacco: Never Used Alcohol Use Standard Drinks/Week Comments No 0 (1 standard drink = 0.6 oz pure alcoho l) Sex Assigned at Date Recorded Not on file documented as of this encounter Miscellaneous Notes Telephone Encounter - Perri Alba RN - 10/23/2015 9:26 AM EDT Caller: Patient Learning Needs Assessment Reviewed: Yes Subjective Patient presents with: Triage Objective/Assessment Symptom onset:Abdominal pain starting yesterday morning (felt like full of gas) and then started vomiting last evening. Vomited times one only. No apparent blood. Did not eat anything yesterday. Did drink plenty of fluids. No fever/chills. Patient moved her bowels several times yesterday of formed stool. Today cont. Bloating and feeling like lots of gas. 5/10 right above the umbilicus. No traveling of the pain. Pain is a little better today. Doesn't feel like she wants to eat but no nausea. No lightheadedness/dizziness. Location: Duration: Characteristics:Continuous discomfort. No sharp pain. Aggravating factors:N/A Relieving factors:Not eating and resting. Pepto Bismol helped. Also took Ivory Finley and it may have been what made her sick she thinks. Timing: Severity:11/13 Pertinent Past Medical History:Irritable bowel syndrome. Plan Intervention/Plan/ Follow Up: Advised to call back directly if there are further questions, or if these symptoms fail to improve as anticipated or worsen. She has an appointment next week and will see how the next few days go. Telephone Encounter - Deena Montez - 10/23/2015 9:23 AM EDT Message: Pt called looking to have an appt for abdominal pain and vomiting. No appts were available.Pt was offered triage, but she denied. Caller and relationship (if other than patient-full name): Self documented in this encounter Plan of Treatment Not on filedocumented as of this encounter Visit Diagnoses Not on filedocumented in this encounter Care Teams Security Incident Handler Relationship Specialty Start Date End Date Allison Granados APRN PCP - General 04/22/14 06/27/21 [facility] [place] [address] documented as of this encounter
--- OUTSIDE RECORDS SUMMARY | 2021-12-28 04:10 | XMS_ITS | Encounter Summary ---
:1950 Author Organization [facility] [place] [address] Care Team Providers Name Role Phone Allison Granados [facility] Primary Care Provider [phone] Reason for Referral E-Consultation (Routine) - Specialty Diagnoses / Procedures Referred By Contact Refer red To Contact Endocrinology Diagnoses Thyroid nodule Allison Granados, Procedures eConsult to Endocrinology (Primary Care Use Only) [facility] GENERAL INTERNAL [facility] [place] [address] Referral ID Status Reason Start Date Expiration Date Visits V isits Requested Authorized [id number] 06/12/2016 06/12/2017 3 3 Encounter Details Date Type Department Care Team Description 06/12/2016 Telephone Internal Medicine at [place] Allison Murphy, [facility] DR Gutierrez [facility] [place] [address] [place] [address] [phone] (Wo rk) Social History Tobacco Use Types Packs/Day Years Used Date Never Smoker Smokeless Tobacco: Never Used Alcohol Use Standard Drinks/Week Comments No 0 (1 standard drink = 0.6 oz pure alcoho l) Sex Assigned at Date Recorded Not on file documented as of this encounter Miscellaneous Notes Telephone Encounter - Allison Granados APRN - 06/12/2016 2:04 PM EST Called patient to discuss results of her recent labs and imaging. documented in this encounter Plan of Treatment Not on filedocumented as of this encounter Visit Diagnoses Diagnosis Thyroid nodule - Primary Nontoxic uninodular goiter documented in this encounter Care Teams Supervisor [employer] Relationship Specialty Start Date End Date Allison Granados APRN PCP - General 04/22/14 06/27/[address] [facility] [address] [place] [address] documented as of this encounter
--- OUTSIDE RECORDS SUMMARY | 2021-12-28 04:10 | XMS_ITS | Encounter Summary ---
:1950 Author Organization [facility] [place] [address] Care Team Providers Name Role Phone Allison Granados APRN Primary Care Provider [phone] Encounter Details Date Type Department Care Team Description 12/05/2015 Orders Only Obstetrics and Gynecology Chuck Contreras, Urge incontinence at [facility] [place] [address] Social History Tobacco Use Types Packs/Day Years Used Date Never Smoker Smokeless Tobacco: Never Used Alcohol Use Standard Drinks/Week Comments No 0 (1 standard drink = 0.6 oz pure alcoho l) Sex Assigned at Date Recorded Not on file documented as of this encounter Plan of Treatment Not on filedocumented as of this encounter Visit Diagnoses Diagnosis Urge incontinence documented in this encounter Care Teams Internet Webmaster Relationship Specialty Start Date End Date Allison Granados APRN PCP - General 04/22/14 06/27/[address] [facility] [place] [address] documented as of this encounter
--- OUTSIDE RECORDS SUMMARY | 2021-12-28 04:10 | XMS_ITS | Encounter Summary ---
:1950 Author Organization [facility] [place] [address] Care Team Providers Name Role Phone Allison Granados APRN Primary Care Provider [phone] Reason for Visit Reason Onset Date Comments Results 08/28/2015 Encounter Details Date Type Department Care Team Description 08/28/2015 Telephone Internal Medicine at [facility] Sola Nicolas Results [address] [place], [place] [address] Social History Tobacco Use Types Packs/Day Years Used Date Never Smoker Smokeless Tobacco: Never Used Alcohol Use Standard Drinks/Week Comments No 0 (1 standard drink = 0.6 oz pure alcoho l) Sex Assigned at Date Recorded Not on file documented as of this encounter Miscellaneous Notes Telephone Encounter - Corin Mclean RN - 08/28/2015 3:52 PM EST TC to patient; xray results not found. Patient informed. TC to [facility] Radiology for results of CXR. Results received and given to Dr Montes De Oca. Patient informed of results, which are normal. Telephone Encounter - Sola Nicolas - 08/28/2015 2:21 PM EST Message: Pt would like to know if her x-rays from [facility] have made it to Allison Granados. Please callback. Caller and relationship (if other than patient-full name): Patient Best time to call back: until 4 Ok to leave a message: [ yes] Ok to send my- message: [] Offered Appointment: Nurse contacted via: Message: x Call: Pager: documented in this encounter Plan of Treatment Not on filedocumented as of this encounter Visit Diagnoses Not on filedocumented in this encounter Care Teams Eye Clinic Manager Relationship Specialty Start Date End Date Allison Granados APRN PCP - General 04/22/14 06/27/21 [facility] [address] [place] [address] documented as of this encounter
--- OUTSIDE RECORDS SUMMARY | 2021-12-28 04:10 | XMS_ITS | Encounter Summary ---
:1950 Author Organization [facility] [place] [address] Care Team Providers Name Role Phone Roberta Allison Rain APRN Primary Care Provider [phone] Encounter Details Date Type Department Care Team Description 06/10/2016 Orders Only Internal Medicine at [facility] thyroidism, [address] A, RN unspecified type [address] [place] [address] Social History Tobacco Use Types Packs/Day Years Used Date Never Smoker Smokeless Tobacco: Never Used Alcohol Use Standard Drinks/Week Comments No 0 (1 standard drink = 0.6 oz pure alcoho l) Sex Assigned at Date Recorded Not on file documented as of this encounter Plan of Treatment Not on filedocumented as of this encounter Results TSH (06/10/2016 10:01 AM EST) P athologist Signature TSH 3.23 0.27 - 4.20 [facility] Specimen Anatomical Collection Method Collection Time Receive d Time (Source) Location / / Volume Laterality Blood specimen 06/10/2016 10:01 6 (specimen) AM EST 10:09 AM EST Resulting Agency Comment Spec In Lab Lorri Moran MD CHEMISTRY ORDERABLES Performing Organization Address City/State/[place] [address] documented in this encounter Visit Diagnoses Diagnosis Hypothyroidism, unspecified type documented in this encounter Care Teams Bunch Breaker Relationship Specialty Start Date End Date Allison Granados APRN PCP - General 04/22/14 06/27/[address] [facility] [place] [address] documented as of this encounter
--- OUTSIDE RECORDS SUMMARY | 2021-12-28 04:10 | XMS_ITS | Encounter Summary ---
:1950 Author Organization [facility] [place] [address] Care Team Providers Name Role Phone Allison Hector APRN Primary Care Provider [phone] Encounter Details Date Type Department Care Team Description 06/10/2016 Hospital Encounter [place] [facility] [place] Engel Elevated TSH [facility] [place] [address] [facility] [place], [place] [address] (Wo rk) Social History Tobacco Use Types Packs/Day Years Used Date Never Smoker Smokeless Tobacco: Never Used Alcohol Use Standard Drinks/Week Comments No 0 (1 standard drink = 0.6 oz pure alcoho l) Sex Assigned at Date Recorded Not on file documented as of this encounter Medications at Time of Discharge Medication Sig Dispensed Refills Start Date End Date levothyroxine Take 1 tablet by 30 tablet 12 05/13/201608/13 (SYNTHROID) 50 mcg mouth daily. TabletIndications: Elevated TSH esomeprazole (NEXIUM) 40 Take 1 capsule by 30 capsule 12 01/201602/24/2017 mg Capsule, Delayed mouth daily. Take Release(E.C.) 30 minutes before dinner. albuterol (PROVENTIL Inhale 2 puffs 1 Inhaler 3 04/29/2016 01/30/2017 HFA;VENTOLIN HFA;PROAIR) into the lungs as 90 mcg/actuation HFA needed. Use with Aerosol Inhaler spacer ferrous sulfate 325 mg Take 1 tablet by 90 tablet 3 016 06/20/2017 (65 mg iron) Tablet, mouth daily. Delayed Release (E.C.) rOPINIRole (REQUIP) 0.5 TAKE THREE TABLETS 270 tablet 3 02/0402/24/2017 mg Tablet BY MOUTH AT NIGHT oxybutynin (DITROPAN-XL) Take 1 tablet by 90 tablet 3 12/3107/19/2016 10 mg Tablet Extended mouth daily. Rel 24 hr SYMBICORT 160-4.5 INHALE ONE PUFF BY 10.2 [...] Topically around left 4th finger as needed. documented as of this encounter Plan of Treatment Not on filedocumented as of this encounter Procedures Procedure Name Priority Date/Time Associated Diagnosis Comme nts US THYROID SOFT Routine 06/10/2016 9:10 AM Elevated TSH Result s for this TISSUE EST procedure are i n the results section. documented in this encounter Results US Thyroid Soft Tissue (06/10/2016 9:10 AM EST) Anatomical Region Laterality Modality Pelvis Ultrasound Specimen (Source) Anatomical Collection Method Collection Time Re ceived Time Location / / Volume Laterality 06/10/2016 9:10 AM EST Impressions 06/10/2016 10:17 AM EST ??Ultrasound Dictation: Bilateral thyroid nodules as described above. FNA could be considered for the largest nodule on each side. I have personally reviewed the image(s) and the residents interpretation and agree with the findings, Isaiah Conn at 06/10/2016 10:10 AM ? Isaiah ramirez MD Electronically Signed Final Report ?? 10:16 am Narrative 06/10/2016 10:17 AM EST Thyroid ?(Signed Final 06/10/2016 10:16 am) PATIENT INFO: ID #: ? [id number] ?: ??[birth year] (65 yrs) Name: ? ELIDA DINH ?Visit Date: 06/10/2016 09:10 am PERFORMED BY: Performed By: ? Angel Lloyd RDMS Attending: ?Senia DARDEN, Eric Faust Associate: ?Jim DARDEN, Vivi Crews Referred By: ?CORIN Villareal MD Secondary Phy.: ?? ALLISON Franks PRN Location: ? [facility] SERVICE(S) PROVIDED: ??UTHYRD - Thyroid - [id number] ?[id number] INDICATIONS: ??elevated TSH at outside hospital, inc reased ??fatigue RIGHT LOBE: ??Date ? L(cm) ?AP(cm) ?TV(cm) ??06/10/16 ? 3.5 ?1.7 ? 1.8 ??06/10/16 ? 1.1 ?0.8 -------- Lesions: -------- ??# ?Date ?Location ? Description ? L ? AP ? TV (cm) ??1 ?06/10/16 ?Mid Lobe ? I so- to ?0.5 ?0.5 ?0.6 ?hypoechoic, ?well ?circumscribed, ? peripheral ?vascularity ??# ?Date ?Location ? Description ? L ? AP ? TV (cm) ??2 ?06/10/16 ?Upper pole ?? Hy poechoic, ?1.1 ?0.8 ?0.8 ?solid, non ?vascular, no ?ca++ LEFT LOBE: ??Date ? L(cm) ?AP(cm) ?TV(cm) ??06/10/16 ? 3.1 ?1.9 ? 1.5 -------- Lesions: -------- ??# ?Date ?Location ? Description ? L ? AP ? TV (cm) ??1 ?06/10/16 ?Mid Lobe ? W ell- ?1.4 ?1.0 ?1.5 ?circumscribed, ? solid with ?cystic ?components, ?peripheral ?vascularity ??2 ?06/10/16 ?Lower Lobe ?? Sp onge like, ? 0.5 ?0.3 ?0.4 ?vascular ??3 ?06/10/16 ?Lower Lobe ?? Hy poechoic ? 0.5 ?0.3 ?0.6 -------- ISTHMUS: -------- Measurement: ?3.4 ? mm Comment: ?Normal texture LYMPH NODES: Multiple lymph nodes seen on the left, normal appearing, largest measuring 1.1 x 0.2 x 0.6 cm. S carlos node seen on right measuring 1.8 x 0.5 x 0.9 cm. Procedure Note Isaiah Conn MD - 06/10/2016Format ting of this note might be different from the original. Thyroid (Signed Final 06/10/2016 10:16 am) PATIENT INFO: ID #: [id number] : [birth year] (65 y rs) Name: ELIDA DINH Visit Date: 06/10 09:10 am PERFORMED BY: Performed By: Angel Lloyd RDMS Attending: Isaiah Conn MD Associate: Jim DARDEN, Jerry Crews Referred By: CORIN ENGEL MD Secondary Phy.: ALLISON HECTOR APRN Location: [facility] SERVICE(S) PROVIDED: UTHYRD - Thyroid - [id number] INDICATIONS: elevated TSH at [facility], incre ased fatigue RIGHT LOBE: Date L(cm) AP(cm) TV(cm) 06/10/16 3.5 1.7 1.8 06/10/16 1.1 0.8 -------- Lesions: -------- # Date Location Description L AP TV (cm ) 1 06/10/16 Mid Lobe Iso- to 0.5 0.5 0.6 hypoechoic, well circumscribed, peripheral vascularity # Date Location Description L AP TV (cm ) 2 06/10/16 Upper pole Hypoechoic, 1.1 0 .8 0.8 solid, non vascular, no ca++ LEFT LOBE: Date L(cm) AP(cm) TV(cm) 06/10/16 3.1 1.9 1.5 -------- Lesions: -------- # Date Location Description L AP TV (cm ) 1 06/10/16 Mid Lobe Well- 1.4 1.0 1.5 circumscribed, solid with cystic components, peripheral vascularity 2 06/10/16 Lower Lobe Sponge like, 0.5 0.3 0.4 vascular 3 06/10/16 Lower Lobe Hypoechoic 0.5 0. 3 0.6 -------- ISTHMUS: -------- Measurement: 3.4 mm Comment: Normal texture LYMPH NODES: Multiple lymph nodes seen on the left, normal appearing, largest measuring 1.1 x 0.2 x 0.6 cm. S carlos node seen on right measuring 1.8 x 0.5 x 0.9 cm. IMPRESSION Ultrasound Dictation: Bilateral thyroid nodules as described above. FNA could be considered for the largest nodule on each side. I have personally reviewed the image(s) and the residents interpretation and agree with the findings, Isaiah Conn at 06/10/2016 10:10 AM Isaiah Conn MD Electronically Signed Final Report 06/10 10:16 am Corin Engel MD IMG US GEN ORDERABLES documented in this encounter Visit Diagnoses Diagnosis Elevated TSH Other abnormal blood chemistry documented in this encounter Care Teams Tool Grinder Operator External Relationship Specialty Start Date End Date Allison Hector, NURSING SURGICAL SERVICES DIRECTOR PCP - General 04/22/14 06/27/[address] [facility] [address] ROD INTERNAL [facility] [place] [address] documented as of this encounter
--- OUTSIDE RECORDS SUMMARY | 2021-12-28 04:10 | XMS_ITS | Encounter Summary ---
:1950 Author Organization [facility] [place] [address] Care Team Providers Name Role Phone Allison Granados APRN Primary Care Provider [phone] Encounter Details Date Type Department Care Team Description 11/07/2015 Orders Only Obstetrics and Gynecology Chuck Contreras, [place] [address] Social History Tobacco Use Types Packs/Day Years Used Date Never Smoker Smokeless Tobacco: Never Used Alcohol Use Standard Drinks/Week Comments No 0 (1 standard drink = 0.6 oz pure alcoho l) Sex Assigned at Date Recorded Not on file documented as of this encounter Progress Notes Allison Contreras, JENI - 11/07/2015 2:01 PM EDT Insurance would not cover Mirabegron 25 mg, Oxybutynin XL 5 mg ordered per Liliam Valle VENDING STAND SUPERVISOR. If pt is tolerating side effects can increase to 10 mg per Liliam Valle VENDING STAND SUPERVISOR. documented in this encounter Plan of Treatment Not on filedocumented as of this encounter Visit Diagnoses Diagnosis Urge incontinence documented in this encounter Care Teams Manager Medicaid Relationship Specialty Start Date End Date Allison Granados APRN PCP - General 04/22/14 06/27/[address] [facility] [address] [facility] [place] [address] documented as of this encounter
--- OUTSIDE RECORDS SUMMARY | 2021-12-28 04:10 | XMS_ITS | Encounter Summary ---
:1950 Author Organization [facility] [place] [address] Care Team Providers Name Role Phone Allison Hector SAFETY ANALYST Primary Care Provider [phone] Reason for Referral Diagnostic Test (Emergency) - Closed Specialty Diagnoses / Procedures Referred By Contact Refer red To Contact Diagnoses Chest pain, unspecified type Allison Hector, [facility] Non-Inv Card Lab Procedures Echocardiogram Stress (Treadmill) SAFETY ANALYST [facility] [place] [address] GENERAL INTERNAL Phone: [place] [address] Referral ID Status Reason Start Date Expiration Date Visits V isits Requested Authorized [id number] Closed Specialty 01/31/2016 01/30/2017 1 1 Service Requested Reason for Visit Reason Comments Follow-up Hospital check. Pt reports n o concerns. Encounter Details Date Type Department Care Team Description 01/31/2016 Office Visit Internal Medicine at Allison Hector est pain, [address], SAFETY ANALYST unspecified type [address] [facility] (Primary Dx) [place] [address] GENERAL INTERNAL [phone] [place] [address] (Wo rk) Social History Tobacco Use Types Packs/Day Years Used Date Never Smoker Smokeless Tobacco: Never Used Alcohol Use Standard Drinks/Week Comments No 0 (1 standard drink = 0.6 oz pure alcoho l) Sex Assigned at Date Recorded Not on file documented as of this encounter Last Filed Vital Signs Vital Sign Reading Time Taken Comments Blood Pressure 111/66 01/31/2016 9:48 AM EDT Pulse 59 01/31/2016 9:48 AM EDT Temperature 36.7 ??C (98.1 ??F) 01/31/2016 9:48 AM EDT Respiratory Rate 14 01/31/2016 9:48 AM EDT Oxygen Saturation 99% 01/31/2016 9:48 AM EDT Inhaled Oxygen Concentration - - Weight 55.9 kg (123 lb 3.2 oz) 01/31/2016 9:48 AM EDT Height - - Body Mass Index 24.06 01/01/2016 9:42 AM EDT documented in this encounter Progress Notes Allison Hector APRN - 02/01/2016 7:42 AM EDT Labs normal. Sent to [place] to notify patient. Allison Hector APRN - 01/31/2016 10:00 AM EDT PCP: ALLISON HECTOR APRN Chief Complaint Patient presents with ??? Follow-up Hospital check. Pt reports no concerns. SUBJECTIVE: Elida Montez is a 65 y.o. female who presents for chest pain. She reports that the pain woke her up in the middle of the night. It resolved on its own after awhile. She shortness of breath, dizziness, and left arm pain. She said that she felt like she was going to pass out, she does not think that she did. She said that it was squeezing, like a Knot. No swelling in her feet. She went [facility] the ER at [facility] andwas ruled out for [place], we have report, but do not have copy of EKG. Patient states that she was givenpotassium, and that K was low, but report shows that it was only 3.4. She has not had repeat of the severe pain, but she has had intermittent pain on the left side since then, but not as severe, resolves on own without rest. Review of Systems Constitutional: Negative for chills and fever. Respiratory: Negative for cough and shortness of breath. Cardiovascular: Negative for chest pain (no further chest pain) and leg swelling. Allergies Allergen Reactions ??? Codeine Nausea And Vomiting Current Outpatient Prescriptions Medication Sig Dispense Refill ??? oxybutynin (DITROPAN-XL) 10 mg Tablet Extended Rel 24 hr Take 1 tablet by mouth daily. 90 tablet3 ??? SYMBICORT 160-4.5 mcg/actuation HFA Aerosol Inhaler INHALE ONE PUFF BY MOUTH TWICE A DAY 10.2 Inhaler 12 ??? ibandronate (BONIVA) 150 mg Tablet Take 1 tablet by mouth every 30 days. Take in AM with full glass of water, on an empty stomach. Do not lie down for 30 min. 1 tablet 12 ??? omeprazole (PRILOSEC) 20 mg Capsule, Delayed Release(E.C.) Take 1 capsule by mouth 2 times daily(before meals). 60 capsule 11 ??? triamcinolone (KENALOG) 0.1 % Cream Apply 1 Application topically as needed. Topically around left 4th finger as needed. 30 g 3 ??? rOPINIRole (REQUIP) 0.5 mg Tablet Take 3 tablets by mouth nightly. 90 tablet 3 ??? albuterol (PROVENTIL HFA;VENTOLIN HFA;PROAIR) 90 mcg/actuation HFA Aerosol Inhaler Inhale 2 puffs into the lungs as needed. Use with spacer 1 Inhaler 3 ??? ferrous sulfate 325 mg (65 mg iron) Tablet, Delayed Release (E.C.) Take 1 tablet by mouth daily.(Patient taking differently: Take 325 mg by mouth every other day.) 90 tablet 3 No current facility-administered medications [...] K58.9 ??? Urinary frequency R35.0 OBJECTIVE: Vitals: 01/31/16 0948 BP: 111/66 BP Location (NBP): Left arm Patient Position: Sitting BP Cuff Sizes: Adult (25-34 cm) Pulse: 59 Resp: 14 Temp: 36.7 ??C (98.1 ??F) TempSrc: Oral SpO2: 99% Weight: 55.9 kg (123 lb 3.2 oz) PHYSICAL EXAM: Physical Exam Constitutional: She [...] Diagnoses and all orders for this visit: Chest pain, unspecified type - Echocardiogram Stress (Treadmill); Future - Basic Metabolic Panel (non-fasting); Future - Basic Metabolic Panel (non-fasting) - no new episodes of chest pain, but do want to do stress test to rule out angina as cause of pain. Will do labs and order stress test. documented in this encounter Plan of Treatment Not on filedocumented as of this encounter Procedures Procedure Name Priority Date/Time Associated Diagnosis Comme nts BASIC METABOLIC Routine 01/31/2016 11:05 AM Chest pain, Resul ts for this PANEL (NON-FASTING) EDT unspecified type proc edure are in the results section. documented in this encounter Results STRESS ECHOCARDIOGRAM W LMTD SPECTRAL DOPP, COLOR DOPP (02/05/2016 9:22 AM EDT) P athologist Signature EF 65 [facility] Specimen (Source) Anatomical Location Collection Method / Collectio n Time Received Time / Laterality Volume 02/05/2016 Narrative [facility] - 02/05/2016 1:27 PM EDT Procedure: ?Stress Echocardiogram Patient: ?ALLEGRA Link ? (Age): 1950(65y) Med Rec#: ? [id number] ?Sex: ?F ? Site Loc: ? [facility] ?Ht / Wt: ??152.4(cm)/55.9( Pt. Loc: ?Echo Lab ?BSA: ?1.52 Study Date: ?? 02/05/2016 ?Pt. Type: Tape: ? Referring: Lorri Moran Referring: DARLENE Reading: Onesimo Kramer ([id number]) Senior Sharepoint Developer: Jesica Strickland Kiln Repairer: Laura Bear Interpreting Fellow: Jadon Griffin Diagnosis: *ICD-10-PCS Chest pain, unspecified (R0 7.9) CPT Codes: *Stress Echo (95858) *Color Doppler (70135) *Doppler LTD (06437) *ECG Interpretation (75474) Stage ? BP ?HR ? Rest ?126/78 ?64 ? Peak ?164/76 ?157 ? Recovery ?128/74 ?83 ? SUMMARY: 1. BASELINE: Normal global and segmental biventricular systolic function with an estimated left ventricular eject ion fraction of 65%. ??There is moderate (2+/4+) tricuspid regurgitation present. 2. STRESS: The patient achieved 9 METS a nd peak HR was 157 (103% MPHR). The study was terminated because of fati eryn. ??The patient did not express feelings of chest discomfort. ?? There were no significant ST segment changes. 3. ECHOCARDIOGRAPHIC FINDINGS: Global le ft ventricular systolic function appears hyperdynamic. ??There are no lef t ventricular segmental wall motion abnormalities. 4. IMPRESSION: There is no echocardiogra phic evidence of ischemia at this diagnostic level of stress. 5. Other echo and stress findings as not ed in report. Findings Rest: Left Ventricle: ? The left ventricle is probably normal in size. ?Basal septal hypertrophy is observ ed. ?There is no evidence of LVOT obstr uction. ?There is normal global left ventri cular systolic function. ??Ejection fraction is estimated to be 65%. ?There are no left ventricular segm ental wall motion abnormalities. Left Atrium: ? The left atrium is pr obably normal in size. Right Ventricle: ? Right ventricular chamber size, wall thickness, and systolic function are within normal limi ts. ?The estimated pulmonary artery sys tolic pressure is 23 mmHg. Right Atrium: ? The right atrium is probably normal in size. Aortic Valve: ? The aortic valve is tricuspid. ?The aortic valve leaflets are mild ly thickened. ?Systolic excursion of the aortic v alve is normal. ?There is no evidence of aortic jaymie ve stenosis. ?There is no evidence of aortic reg urgitation. Mitral Valve: ? The mitral valve jasmin flets are mildly thickened. ?There is mild (1+/4+) mitral regur gitation present. Tricuspid Valve: ? The tricuspid jaymie ve is probably normal. ?There is moderate (2+/4+) tricuspi d regurgitation present. Pericardium: ? The pericardium appea rs normal and there is no evidence of a pericardial effusion. Aorta: ? The aortic root is normal i n size. ?The ascending aorta is normal in s ize. Stress: ? EKG: normal sinus rhythm. ?EKG: Premature atrial contractions noted. ?The patient's oxygen saturation wa s ??98%. ?The patient is on no cardiac or bl ood pressure medications. Misc: ? Other echo and stress findin gs as noted in report. ?Stress echo, limited spectral Dopp ler, color Doppler and ECG interpretation performed. Findings Peak: Predicted Values:The patient achieved a maximum heart rate of 157 which is 103% of the maximum predicted heart r ate (153 beats/min). ??The target heart rate was achieved. Left Ventricle: ? Global left ventri cular systolic function appears hyperdynamic. ?There are no left ventricular segm ental wall motion abnormalities. Stress: ? Patient followed a Reg p rotocol. ?The patient exercised into stage 3 . ?The total exercise duration was:7: 53. ?The study was terminated because o f fatigue. ?The study was terminated because o f dyspnea. ?The patient did not express feelin gs of chest discomfort. ?The blood pressure response was no rmal. ?Exercise capacity was excellent. ?The patient achieved a level of 9 METS. ?There were frequent atrial prematu re contractions. ?There were rare ventricular premat ure beats. ?There were no significant ST segme nt changes. ?This was a negative electrocardiog raphic stress test for ischemia. ?EKG: sinus tachycardia. ?The patient's oxygen saturation wa s 98%. Findings Recovery: Stress: ? EKG: normal sinus rhythm. ?EKG: Premature atrial contractions noted. ?EKG: Premature ventricular contrac tions noted. ?EKG: SVTTwo 3-beat runs of SVT in early recovery. Chambers 2D ?Value ?Units (Range) ? Ao root diameter (2D2.7 ?cm (2.1 - 3.6) ? Ascending Ao ?3.1 ?cm (2 - 3.5) ? Diastolic/Systolic Function ?Value ?Units (Range) ? MV E-wave Vmax ?0.8 ?m/sec ? MV deceleration qswb655.3 ? msec ? MV A-wave Vmax ?0.8 ?m/sec ? MV E:A ratio ?1.1 ?ratio ? LV septal e' Vmax ?? 0.1 ?m/sec ? LV lateral e' Vmax ??0.1 ?m/sec ? LV E:e' septal ratio12 ? ratio ? LV E:e' lateral rati8.4 ?ratio ? Tricuspid Valve ?Value ?Units (Range) ? TR Vmax ? 2.4 ?m/sec ? TR peak gradient ?22.9 ? mmHg ? RVSP ?23 ? mmHg ? Wall Motion: Segment Name ?Rest ?Peak ? Base-Anteroseptal ?? Normal ?Normal ? Base-Anterior ? Normal ?Normal ? Base-Anterolateral ??Normal ?Normal ? Base-Posterolateral Normal ?Normal ? Base-Inferior ? Normal ?Normal ? Base-Inferoseptal ?? Normal ?Normal ? Mid-Anteroseptal ?Normal ?Normal ? Mid-Anterior ?Normal ?Normal ? Mid-Anterolateral ?? Normal ?Normal ? Mid-Posterolateral ??Normal ?Normal ? Mid-Inferior ?Normal ?Normal ? Mid-Inferoseptal ?Normal ?Normal ? [place]-Septal ? Normal ?Normal ? [place]-Anterior ? Normal ?Normal ? [place]-Lateral ?Normal ?Normal ? [place]-Inferior ? Normal ?Normal ? [place]-Tip ?Normal ?Normal ? This report has been electronically sign ed by: _ Onesimo Kramer MD ? 02/05/2016 1 3:27:00 Images reviewed and interpretation jason rodriguez [facility] Cardiac Ultrasound Laboratory Procedure Note Onesimo Kramer MD - 02/05/2016Format ting of this note might be different from the original. Procedure: Stress Echocardiogram Patient: ALLEGRA JIMENEZ(Age): [birth year]65y) Med Rec#: [id number] Sex: F Site Loc: [facility] Ht / Wt: 152.4(cm)/55.9( Pt. Loc: Echo Lab BSA: 1.52 Study Date: 02/05/2016 Pt. Type: Tape: Referring: Lorri Moran Referring: DARLENE Reading: Onesimo Kramer ([id number]) Senior Sharepoint Developer: Jesica Strickland Kiln Repairer: Laura Bear Interpreting Fellow: Jadon Griffin Diagnosis: *ICD-10-PCS Chest pain, unspecified (R0 7.9) CPT Codes: *Stress Echo (90411) *Color Doppler (24258) *Doppler LTD (60963) *ECG Interpretation (13503) Stage BP HR Rest 126/78 64 Peak 164/76 157 Recovery 128/74 83 SUMMARY: 1. BASELINE: Normal global and segmental biventricular systolic function with an estimated left ventricular eject ion fraction of 65%. There is moderate (2+/4+) tricuspid regurgitation present. 2. STRESS: The patient achieved 9 METS a nd peak HR was 157 (103% MPHR). The study was terminated because of fati eryn. The patient did not express feelings of chest discomfort. Th ere were no significant ST segment changes. 3. ECHOCARDIOGRAPHIC FINDINGS: Global le ft ventricular systolic function appears hyperdynamic. There are no left ventricular segmental wall motion abnormalities. 4. IMPRESSION: There is no echocardiogra phic evidence of ischemia at this diagnostic level of stress. 5. Other echo and stress findings as not ed in report. Findings Rest: Left Ventricle: The left ventricle is pr obably normal in size. Basal septal hypertrophy is observed. There is no evidence of LVOT obstructio n. There is normal global left ventricular systolic function. Ejection fraction is estimated to be 65%. There are no left ventricular segmental wall motion abnormalities. Left Atrium: The left atrium is probably normal in size. Right Ventricle: Right ventricular chamb er size, wall thickness, and systolic function are within normal limi ts. The estimated pulmonary artery systolic pressure is 23 mmHg. Right Atrium: The right atrium is probab ly normal in size. Aortic Valve: The aortic valve is tricus pid. The aortic valve leaflets are mildly th ickened. Systolic excursion of the aortic valve is normal. There is no evidence of aortic valve st enosis. There is no evidence of aortic regurgit ation. Mitral Valve: The mitral valve leaflets are mildly thickened. There is mild (1+/4+) mitral regurgitat ion present. Tricuspid Valve: The tricuspid valve is probably normal. There is moderate (2+/4+) tricuspid reg urgitation present. Pericardium: The pericardium appears nor mal and there is no evidence of a pericardial effusion. Aorta: The aortic root is normal in size . The ascending aorta is normal in size. Stress: EKG: normal sinus rhythm. EKG: Premature atrial contractions note d. The patient's oxygen saturation was 98% . The patient is on no cardiac or blood p ressure medications. Misc: Other echo and stress findings as noted in report. Stress echo, limited spectral Doppler, color Doppler and ECG interpretation performed. Findings Peak: Predicted Values:The patient achieved a maximum heart rate of 157 which is 103% of the maximum predicted heart r ate (153 beats/min). The target heart rate was achieved. Left Ventricle: Global left ventricular systolic function appears hyperdynamic. There are no left ventricular segmental wall motion abnormalities. Stress: Patient followed a Reg protoco l. The patient exercised into stage 3. The total exercise duration was:7:53. The study was terminated because of fat igue. The study was terminated because of dys pnea. The patient did not express feelings of chest discomfort. The blood pressure response was normal. Exercise capacity was excellent. The patient achieved a level of 9 METS. There were frequent atrial premature co ntractions. There were rare ventricular premature b eats. There were no significant ST segment ch anges. This was a negative electrocardiographi c stress test for ischemia. EKG: sinus tachycardia. The patient's oxygen saturation was 98% . Findings Recovery: Stress: EKG: normal sinus rhythm. EKG: Premature atrial contractions note d. EKG: Premature ventricular contractions noted. EKG: SVTTwo 3-beat runs of SVT in early recovery. Chambers 2D Value Units (Range) Ao root diameter (2D2.7 cm (2.1 - 3.6) Ascending Ao 3.1 cm (2 - 3.5) Diastolic/Systolic Function Value Units (Range) MV E-wave Vmax 0.8 m/sec MV deceleration tfqr556.3 msec MV A-wave Vmax 0.8 m/sec MV E:A ratio 1.1 ratio LV septal e' Vmax 0.1 m/sec LV lateral e' Vmax 0.1 m/sec LV E:e' septal ratio12 ratio LV E:e' lateral rati8.4 ratio Tricuspid Valve Value Units (Range) TR Vmax 2.4 m/sec TR peak gradient 22.9 mmHg RVSP 23 mmHg Wall Motion: Segment Name Rest Peak Base-Anteroseptal Normal Normal Base-Anterior Normal Normal Base-Anterolateral Normal Normal Base-Posterolateral Normal Normal Base-Inferior Normal Normal Base-Inferoseptal Normal Normal Mid-Anteroseptal Normal Normal Mid-Anterior Normal Normal Mid-Anterolateral Normal Normal Mid-Posterolateral Normal Normal Mid-Inferior Normal Normal Mid-Inferoseptal Normal Normal [place]-Septal Normal Normal [place]-Anterior Normal Normal [place]-Lateral Normal Normal [place]-Inferior Normal Normal [place]-Tip Normal Normal This report has been electronically sign ed by: _ Onesimo Kramer MD 02/05/2016 13:27:0 0 Images reviewed and interpretation verif ied [facility] Cardiac Ultrasound Laboratory Lorri Moran MD ECHO ORDERABLES Performing Organization Address City/State/ZIP Code Phon e Number [facility] Basic Metabolic Panel (non-fasting) (01/31/2016 11:05 AM EDT) P athologist Signature Glucose Lvl 85 65 - 199 [facility] mg/dL [facility] Comment: Diabetes: >=200 mg/dL plus symp toms BUN 18 8 - 18 mg/dL [facility] Creatinine 0.71 0.70 - 1.20 mg/dL [facility] Comment: Please note that the pediatric reference intervals supplied above were not validated at [facility]. Results from pediatri c patients should be interpreted in conjunction to the patient's age, height and muscle mass. Sodium 137 135 - 145 mmol/L [facility] Potassium 4.2 3.5 - 5.0 mmol/L [facility] Comment: Please note: ??Patients with WBC >100,00 0 may have falsely elevated Potassium levels. ??For accurate Potassium quantif ication in these patients send serum separator tube (gold top) for subsequent determinations. ??Contact the Clinical Chemistry Laboratory if there are any qu estions. Chloride 100 98 - 107 mmol/L [facility] CO2 22 22 - 31 mmol/L [facility] Anion Gap 15 5 - 15 mmol/L [facility] Calcium 9.0 8.5 - 10.5 mg/dL [facility] Estimated GFR >60 >=60 [facility] Comment: This estimated GFR (eGFR) value was calc ulated using the MDRD equation which has been validated on patients between t he ages of 18 and 70. The MDRD should not be used to assess kidney function in patients < 18 years of age or in patients with extremes of body mass, or in patients with acute kidney failure. This value should be multiplied by 1.2 f or patients. For further information please copy and past e the following links into your internet browser. [email or web address] Specimen Anatomical Collection Method Collection Time Receive d Time (Source) Location / / Volume Laterality Blood specimen 01/31/2016 11:05 6 7:19 (specimen) AM EDT PM EDT Resulting Agency Comment Spec In Lab Lorri Moran MD CHEMISTRY ORDERABLES Performing Organization Address City/State/ZIP [place] [address] documented in this encounter Visit Diagnoses Diagnosis Chest pain, unspecified type - Primary Chest pain, unspecified type documented in this encounter Care Teams Registered Public Health Nurse Relationship Specialty Start Date End Date Allison Hector APRN PCP - General 04/22/14 06/27/21 [facility] GENERAL INTERNAL [place] [address] documented as of this encounter
--- OUTSIDE RECORDS SUMMARY | 2021-12-28 04:10 | XMS_ITS | Encounter Summary ---
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 Nee ds refills. Encounter Details Date Type Department Care Team Description 10/30/2015 Office Visit Internal Medicine Allison Hector Acute abdomen; at [facility] SOILA Rain Gastroesophageal reflux disease without esophagitis [address] [place] [address] GENERAL INTERNAL [phone] [place], [place] [address] Social History Tobacco Use Types Packs/Day Years Used Date Never Smoker Smokeless Tobacco: Never Used Alcohol Use Standard Drinks/Week Comments No 0 (1 standard drink = 0.6 oz pure alcoho l) Sex Assigned at Date Recorded Not on file documented as of this encounter Last Filed Vital Signs Vital Sign Reading Time Taken Comments Blood Pressure 111/61 10/30/2015 8:00 AM EDT left arm Pulse 63 10/30/2015 8:00 AM EDT Temperature 36.7 ??C (98 ??F) 10/30/2015 8:00 AM EDT Respiratory Rate 16 10/30/2015 8:00 AM EDT Oxygen Saturation 97% 10/30/2015 8:00 AM EDT Inhaled Oxygen Concentration - - Weight 58.1 kg (128 lb) 10/30/2015 8:00 AM EDT Height - - Body Mass Index 24.38 08/17/2015 2:23 PM EST documented in this encounter Progress Notes Allison Hector APRN - 10/30/2015 8:02 AM EDT PCP: ALLISON HECTOR APRN Chief Complaint Patient presents with ??? Follow-up Abdominal pain is worse. Needs refills. SUBJECTIVE: Elida Montez is a 65 y.o. female who presents for follow up on the abdominal pain. She reports that it has gotten worse. - she was seen about 2.5 months ago for RUQ abdominal pain/ lower right chest discomfort. She was having tenderness to palpation at the time. - She reports that she had nausea and vomiting associated with the pain. She reports that she has continued to have the nausea for the last week. She reports that she has decreased appetite and does not want to eat. - She is not hungry, she feels that there is something in her throat. - She reports that she is still getting severe pain in RUQ that is not associated with whether she eats or not. She reports that she went on a retreat for 4 days and the pain was really Chest xray was done at outside hospital that was normal. - she had an abdominal CT done about 6 months ago. Review of Systems Constitutional: Negative for fever and chills. Gastrointestinal: Positive for nausea (last week), vomiting (last week), abdominal pain and diarrhea(intermittent). Negative for blood in stool. Allergies Allergen Reactions ??? Codeine Nausea And Vomiting Current Outpatient Prescriptions Medication Sig Dispense Refill ??? rOPINIRole (REQUIP) [...] tablet by mouth daily.90 tablet 3 ??? omeprazole (PRILOSEC) 20 mg Capsule, Delayed Release(E.C.) Take 1 capsule by mouth daily. 30 capsule 11 ??? Budesonide-Formoterol 160-4.5 mcg/actuation HFA Aerosol Inhaler Inhale 1 puff into the lungs 2 times daily. 1 Inhaler 12 ??? ibandronate (BONIVA) 150 mg Tablet Take 1 tablet by mouth every 30 days. Take in AM with full glass of water, on an empty stomach. Do not lie down for 30 min. 1 tablet 12 ??? triamcinolone (KENALOG) 0.1 % Cream Apply 1 Application topically as needed. No current facility-administered medications for this visit. Patient Active Problem List Diagnosis Code ??? Radiculopathy of lumbar region M54.16 ??? Renal mass N28.89 ??? Neck pain M54.2 ??? Asthma J45.909 ??? Health care maintenance Z00.00 ??? Pain in limb (LEG) M79.609 ??? Osteopenia M85.80 ??? Restless leg syndrome G25.81 ??? Low ferritin level R79.0 OBJECTIVE: Filed Vitals: 10/30/15 0800 BP: 111/61 Pulse: 63 Temp: 36.7 ??C (98 ??F) TempSrc: Oral Resp: 16 Weight: 58.06 kg (128 lb) SpO2: 97% PHYSICAL EXAM: Physical Exam Constitutional: She appears well-developed and well-nourished. HENT: Head: Normocephalic and atraumatic. Mouth/Throat: Oropharynx is clear and moist. Eyes: Conjunctivae are normal. Cardiovascular: Normal rate, regular rhythm and normal heart sounds. Pulmonary/Chest: Effort normal and breath sounds normal. Abdominal: Soft. Bowel sounds are normal. She exhibits distension (bloated). She exhibits no mass. There is tenderness (Generalized tenderness). There is no rebound and no guarding. Skin: Skin is warm and dry. No rash noted. Psychiatric: She has a normal mood and affect. Her behavior is normal. Judgment and thought content normal. ASSESSMENT & PLAN: Elida was seen today for follow-up . Diagnoses and all orders for this visit: Acute abdomen Orders: - POCT urine dipstick - CBC (with Diff); Future - Comprehensive metabolic panel (non-fasting); Future - Referral to Gastroenterology - CBC (with Diff) - Comprehensive metabolic panel (non-fasting) - Hemogram - Differential, Automated Gastroesophageal reflux disease without esophagitis Orders: - omeprazole (PRILOSEC) 20 mg Capsule, Delayed Release(E.C.); Take 1 capsule by mouth 2 times daily (before meals). documented in this encounter Plan of Treatment Scheduled Referrals Name Type Priority Associated Order Schedule Diagnoses Referral to Outpatient Routine Acute abdomen Ordered: Gastroenterology Referral 10/30/2015 documented as of this encounter Procedures Procedure Name Priority Date/Time Associated Comments Diagnosis HEMOGRAM Routine 10/30/2015 8:53 AM Acute abdomen Results for this EDT procedure are i n the results section. DIFFERENTIAL, Routine 10/30/2015 8:53 AM Acute abdomen Results for this AUTOMATED EDT procedure are i n the results section. CBC (WITH DIFF) Routine 10/30/2015 8:53 AM Acute abdomen EDT COMPREHENSIVE Routine 10/30/2015 8:53 AM Acute abdomen Results for this METABOLIC PANEL EDT procedure ar e in (NON-FASTING) the results section. POCT URINE DIPSTICK Routine 10/30/2015 8:05 AM Acute abdomen R esults for this EDT procedure are i n the results section. documented in this encounter Results (ABNORMAL) Differential, Automated (10/30/2015 8:53 AM EDT) [facility] Method Time Signature Neutrophils % 48.3 % [facility] Neutr Abs (ANC) 4.34 1.50 - [facility] 6.30 [facility] x10(3)/[facility] LABORATORY Lymphocytes % 30.1 % [facility] Lymphocytes Abs 2.7 1.0 - 3.6 [facility] x10(3)/[facility] LABORATORY Monocytes % 15.1 % [facility] Monocyte Abs 1.4 (H) 0.2 - 1.0 [facility] x10(3)/[facility] LABORATORY Eosinophils % 4.9 % [facility] Eosinophils Abs 0.4 0.0 - 0.5 [facility] x10(3)/[facility] LABORATORY Basophils % 0.9 % [facility] Basophils Abs 0.1 0.0 - 0.2 [facility] x10(3)/[facility] LABORATORY Immature Gran % 0.70 % [facility] Comment: Immature granulocytes(IG's)percentage an d absolute count will include metamyelocytes, myelocytes, and promyelo cytes. Blood smears from CBCs yielding IG's will be scanned manually for concor dance. If this scan disagrees with the automated IG or if promyelocytes are not ed, a manual differential will be performed. Zena Gran Abs 0.06 (H) 0.00 - 0.05 x10(3)/[facility] LABORATORY Specimen Anatomical Collection Method Collection Time Receive d Time (Source) Location / / Volume Laterality Blood specimen 10/30/2015 8:53 AM 016 (specimen) EDT 12:15 PM EDT Resulting Agency Comment Spec In Lab Lorri Moran MD HEMATOLOGY ORDERABLES Performing Organization Address City/State/[place] [address] Hemogram (10/30/2015 8:53 AM EDT) P athologist Signature WBC 9.0 4.0 - 10.0 [facility] x10(3)/[facility] LABORATORY RBC 5.10 3.93 - 5.22 [facility] x10(6)/[facility]ORY Hemoglobin 15.2 11.2 - 15.7 [facility] gm/dL [facility] Hematocrit 44.8 34.0 - 45.0 [facility] MCV 87.8 79.0 - 94.0 [facility] LABORATORY MCH 29.8 26.6 - 32.2 [facility] LABORATORY MCHC 33.9 32.0 - 36.5 [facility] gm/dL [facility] Platelets 317 145 - 370 [facility] x10(3)/[facility] LABORATORY RDWSD 42.6 35.0 - 46.0 [facility]ORY RDWCV 13.3 10.9 - 14.4 [facility] MPV 11.2 9.0 - 12.0 [facility] LABOR[facility]ORY Specimen Anatomical Collection Method Collection Time Receive d Time (Source) Location / / Volume Laterality Blood specimen 10/30/2015 8:53 AM 016 (specimen) EDT 12:15 PM EDT Resulting Agency Comment Spec In Lab Lorri Moran MD HEMATOLOGY ORDERABLES Performing Organization Address City/State/[place] [address] (ABNORMAL) Comprehensive metabolic panel (non-fasting) (10/30/2015 8:53 AM EDT) athologist Signature Glucose Lvl 90 65 - 199 [facility] mg/dL [facility] Comment: Diabetes: >=200 mg/dL plus symp toms BUN 13 8 - 18 mg/dL [facility] Creatinine 0.69 (L) 0.70 - 1.20 mg/dL [facility] Comment: Please note that the pediatric reference intervals supplied above were not validated at [facility]. Results from pediatri c patients should be interpreted in conjunction to the patient's age, height and muscle mass. Sodium 141 135 - 145 mmol/L [facility] Potassium 4.3 3.5 - 5.0 mmol/L [facility] Comment: Please note: ??Patients with WBC >100,00 0 may have falsely elevated Potassium levels. ??For accurate Potassium quantif ication in these patients send serum separator tube (gold top) for subsequent determinations. ??Contact the Clinical Chemistry Laboratory if there are any qu estions. Chloride 104 98 - 107 mmol/L [facility] CO2 23 22 - 31 mmol/L [facility] Anion Gap 14 5 - 15 mmol/L [facility] Calcium 9.0 8.5 - 10.5 mg/dL [facility] Total Protein 6.9 6.1 - 8.0 gm/dL [facility] Albumin 4.5 3.2 - 5.2 gm/dL [facility] AST 49 (H) 0 - 30 unit/L [facility] ALT 76 (H) 0 - 30 unit/L [facility] Alk Phos 124 (H) 40 - 104 unit/L [facility] Total Bilirubin 0.5 0.2 - 1.3 mg/dL [facility] Bili, Direct 0.1 0.0 - 0.3 mg/dL [facility] Estimated GFR >60 >=60 [facility] Comment: This estimated GFR (eGFR) value [...] the following links into your internet browser. [email or web address]/DHnkdep [email or web address]/DHMCnkf Specimen Anatomical Collection Method Collection Time Receive d Time (Source) Location / / Volume Laterality Blood specimen 10/30/2015 8:53 AM 016 (specimen) EDT 12:15 PM EDT Resulting Agency Comment Spec In Lab Lorri Moran MD CHEMISTRY ORDERABLES Performing Organization Address City/State/[place] [address] POCT urine dipstick (10/30/2015 8:05 AM EDT) P athologist Signature POC Sp [place] 1.020 1.002 - 1.030 POC pH, UA 5 5.0 - 8.5 POC Leuk, UA + Negative - Negative POC Nitrite, neg Negative - UA Negative POC Protein, neg Negative - UA Negative mg/dL POC Glucose, norm Normal - UA Normal mg/dL POC Ketone, UA neg Negative - Negative POC Urobil, UA norm 0.2 - 1.0 mg/dL POC Bili, UA + Negative - Negative POC Blood, UA Trace Negative - Negative aaron/uL Specimen (Source) Anatomical Collection Method Collection Time Re ceived Time Location / / Volume Laterality Urine specimen 10/30/2015 8:05 AM (specimen) EDT Lorri Moran MD POINT OF CARE TEST ORDERABLE S documented in this encounter Visit Diagnoses Diagnosis Acute abdomen Abdominal pain, unspecified site Gastroesophageal reflux disease without esophagitis Esophageal reflux documented in this encounter Care Teams Casting House Laborer Relationship Specialty Start Date End Date Allison Hector APRN PCP - General 04/22/14 06/27/[address] [facility] [address] [place] [address] documented as of this encounter
--- OUTSIDE RECORDS SUMMARY | 2021-12-28 04:10 | XMS_ITS | Encounter Summary ---
:1950 Author Organization [facility] [place] [address] Care Team Providers Name Role Phone Allison Granados APRN Primary Care Provider [phone] Reason for Visit Reason Onset Date Comments Medical Care Coordination 01/26/2016 Encounter Details Date Type Department Care Team Description 01/26/2016 [facility] [address] [place], [place] [id number] [place] [id number] Social History Tobacco Use Types Packs/Day Years Used Date Never Smoker Smokeless Tobacco: Never Used Alcohol Use Standard Drinks/Week Comments No 0 (1 standard drink = 0.6 oz pure alcoho l) Sex Assigned at Date Recorded Not on file documented as of this encounter Miscellaneous Notes Telephone Encounter - Brianna Vazquez RN - 01/26/2016 4:25 PM EDT Care Coordination Note - ORTIZ Lawson Transition of Care call to patient to f/u after ED visit ([facility]) on 01/22for chest pain. Ruled out by EKG and troponins (2). Her potassium was 3.4 and she states she was given some replacement in the ED. I spoke with her this afternoon. She feels fine. I have scheduled her for a f/u with Leta Granados APRN, next January 30. ED notes placed in Leta's mail folder. documented in this encounter Plan of Treatment Not on filedocumented as of this encounter Visit Diagnoses Not on filedocumented in this encounter Care Teams Spa Director Relationship Specialty Start Date End Date Allison Granados APRN PCP - General 04/22/14 06/27/[address] [facility] [address] [place] [address] documented as of this encounter
--- OUTSIDE RECORDS SUMMARY | 2021-12-28 04:10 | XMS_ITS | Encounter Summary ---
:1950 Author Organization [facility] [place] [address] Care Team Providers Name Role Phone Allison Hector APRN Primary Care Provider [phone] Reason for Visit Reason Onset Date Comments Medication Refill 10/09/2015 Encounter Details Date Type Department Care Team Description 10/09/2015 Refill Internal Medicine at [facility] Perri Alba RN [address] [place] [phone] Social History Tobacco Use Types Packs/Day Years Used Date Never Smoker Smokeless Tobacco: Never Used Alcohol Use Standard Drinks/Week Comments No 0 (1 standard drink = 0.6 oz pure alcoho l) Sex Assigned at Date Recorded Not on file documented as of this encounter Miscellaneous Notes Telephone Encounter - Perri Alba RN - 10/09/2015 11:12 AM EDT From: Elida M Tc To: Allison Hector APRN Sent: 10/09/2015 8:18 AM EDT Subject: Medication Renewal Request Original authorizing provider: ALLISON HECTOR APRN Elida Montez would like a refill of the following medications: rOPINIRole (REQUIP) 0.5 mg Tablet [ALLISON HECTOR APRN] Preferred pharmacy: [id number] - [address] Comment: documented in this encounter Plan of Treatment Not on filedocumented as of this encounter Visit Diagnoses Not on filedocumented in this encounter Care Teams Instructor Technical Training Relationship Specialty Start Date End Date Allison Hector APRN PCP - General 04/22/14 06/27/[address] [facility] [address] [place] [address] documented as of this encounter
--- OUTSIDE RECORDS SUMMARY | 2021-12-28 04:10 | XMS_ITS | Encounter Summary ---
:1950 Author Organization [facility] [place] [address] Care Team Providers Name Role Phone Allison Granados APRN Primary Care Provider [phone] Encounter Details Date Type Department Care Team Description 02/08/2016 Telephone [place] Medicine at [place] [address] RN [address] [place] [address] Social History Tobacco Use Types Packs/Day Years Used Date Never Smoker Smokeless Tobacco: Never Used Alcohol Use Standard Drinks/Week Comments No 0 (1 standard drink = 0.6 oz pure alcoho l) Sex Assigned at Date Recorded Not on file documented as of this encounter Miscellaneous Notes Telephone Encounter - Corin Mclean RN - 02/08/2016 12:39 PM EDT Patient calling; she had small BM with white stone about eraser-sized attached to the stool. Denies bleeding, pain, nausea, cramping. Denies any foods that could have been related. States she doesn'thave a gall bladder; it was removed years ago. Advised to call back if it recurs or if she develops any related symptoms like pain or bleeding. documented in this encounter Plan of Treatment Not on filedocumented as of this encounter Visit Diagnoses Not on filedocumented in this encounter Care Teams Metal Stud Framer Relationship Specialty Start Date End Date Allison Granados APRN PCP - General 04/22/14 06/27/[address] [facility] [address] [place] [address] documented as of this encounter
--- OUTSIDE RECORDS SUMMARY | 2021-12-28 04:10 | XMS_ITS | Encounter Summary ---
:1950 Author Organization [facility] Address [address] [place] [address] Care Team Providers Name Role Phone Allison Hector Kofif CM Primary Care Provider [phone] Reason for Visit Reason Comments Follow-up Encounter Details Date Type Department Care Team Description 12/13/2015 Office Visit Internal Medicine at Allison Hector Sy ncope, unspecified syncope type; Hayti Ho WSOILA Constipation, unspecified constipation t ype [address] [facility] [place] [address] GENERAL INTERNAL [phone] [address] [place], [place] [address] Social History Tobacco Use Types Packs/Day Years Used Date Never Smoker Smokeless Tobacco: Never Used Alcohol Use Standard Drinks/Week Comments No 0 (1 standard drink = 0.6 oz pure alcoho l) Sex Assigned at Date Recorded Not on file documented as of this encounter Last Filed Vital Signs Vital Sign Reading Time Taken Comments Blood Pressure 121/72 12/13/2015 8:30 AM EDT Pulse 55 12/13/2015 8:30 AM EDT Temperature 36.5 ??C (97.7 ??F) 12/13/2015 8:30 AM EDT Respiratory Rate 18 12/13/2015 8:30 AM EDT Oxygen Saturation 99% 12/13/2015 8:30 AM EDT Inhaled Oxygen Concentration - - Weight 57.9 kg (127 lb 9.6 oz) 12/13/2015 8:30 AM EDT Height - - Body Mass Index 24.51 11/03/2015 11:26 AM EDT documented in this encounter Patient Instructions Patient InstructionsAllison Hector APRN - 12/13/2015 8:58 AM EDT Constipation- take Miralax daily. - please get some Colace (docusate) and take 1-2 capsules per day to help as stool softner - if you are not having a lot of stool after doing this for a couple of days, you can try Senna, which is a laxative, and helps to make you go. Syncope- I have ordered the ziopatch for you. This will be set up through cardiology department. documented in this encounter Progress Notes Allison Hector APRN - 12/13/2015 8:40 AM EDT PCP: ALLISON HECTOR APRN Chief Complaint Patient presents with ??? Follow-up SUBJECTIVE: Elida Montez is a 65 y.o. female who presents for follow up for ER visit for syncope and abdominal pain. - no lightheadedness or dizziness. - She reports that her eyes feel achy. She is still getting intermittent sharp pains in the head. This has been about the same. It has not gotten worse. She denies change in vision. - still having intermittent upper abdominal pain. - review of discharge summary showed that she had significant amount of stool in colon that displaced diaphragm slightly. She reports only small bowel movements since her discharge. She has miralax that she got a couple of days ago, but has not started it yet. Review of Systems Constitutional: Negative for chills and fever. Eyes: Negative for pain, discharge and visual disturbance. Cardiovascular: Negative for chest pain and palpitations. Gastrointestinal: Positive for abdominal pain (not the same as prior to going into hospital). Neurological: Positive for headaches (pain on back of head from fall). Negative for dizziness and light-headedness. Allergies Allergen Reactions ??? Codeine Nausea And Vomiting Current Outpatient Prescriptions Medication Sig Dispense Refill ??? oxybutynin (DITROPAN-XL) 10 mg Tablet Extended Rel 24 hr Take 1 tablet by mouth daily. 30 tablet3 ??? SYMBICORT 160-4.5 mcg/actuation HFA Aerosol [...] K58.9 ??? Urinary frequency R35.0 OBJECTIVE: Vitals: 12/13/15 0830 BP: 121/72 BP Location (NBP): Left arm Patient Position: Sitting BP Cuff Sizes: Adult (25-34 cm) Pulse: 55 Resp: 18 Temp: 36.5 ??C (97.7 ??F) TempSrc: Oral SpO2: 99% Weight: 57.9 kg (127 lb 9.6 oz) PHYSICAL EXAM: Physical Exam Constitutional: She appears well-developed and well-nourished. HENT: Head: Normocephalic and atraumatic. Mouth/Throat: Oropharynx is clear and moist. Eyes: Conjunctivae are normal. Cardiovascular: Normal rate, regular rhythm and normal heart sounds. Pulmonary/Chest: Effort normal and breath sounds normal. Abdominal: Soft. Bowel sounds are normal. She exhibits no distension and no mass. There is tenderness (diffuse in all quadrants). There is no rebound and no guarding. Skin: Skin is warm and dry. No rash noted. Psychiatric: She has a normal mood and affect. Her behavior is normal. Judgment and thought content normal. ASSESSMENT & PLAN: Elida was seen today for follow-up . Diagnoses and all orders for this visit: Syncope, unspecified syncope type Orders: - Ziopatch; Future - given syncopal event, will do ziopatch to check for arrythmia Constipation, unspecified constipation type - CT showed significant amount of stool from [facility] (see scanned document). She has not had any large stools recently. Will try bowel regimen to see if will help with pain - patient has EGD scheduled in couple weeks. Patient Instructions Constipation- take Miralax daily. - please get some Colace (docusate) and take 1-2 capsules per day to help as stool softner - if you are not having a lot of stool after doing this for a couple of days, you can try Senna, which is a laxative, and helps to make you go. Syncope- I have ordered the ziopatch for you. This will be set up through cardiology department. documented in this encounter Plan of Treatment Not on filedocumented as of this encounter Results Ziopatch (12/13/2015 11:33 AM EDT) Specimen (Source) Anatomical Location Collection Method / Collectio n Time Received Time / Laterality Volume Narrative John Ayon MD - 01/07/2016 8:12 PM EDT Cardiac Electrophysiology Zio Monitor Study Initiated: ??13 December 2015 Duration: ?? 10 days 20 hours (after rem oval of artifact) Indication: Syncope and collapse Result: The overall sinus rhythm rate range was 46-139/minute, and averaged 73/minute. The predominant underlying rh ythm throughout the monitoring period was conducted sinus rhythm. The s lowest heart rates tended to occur overnight. No pauses >3 seconds were seen, and ther e was no type II second degree or third degree atrioventricular conduction block reported or observed. There was a <1.0% burden of isolated ect opic supraventricular beats detected, and rare couplets and triplets were detected as well. There were 9 supraventricular runs detected (the fa stest was 5 beats at a maximum rate of 214/minute, and the longest was for 9 beats seconds at a mean rate of 104/minute). There was a <1.0% burden of isolated ect opic ventricular beats detected, and no couplets nor triplets were detect ed. There were no ventricular tachycardia runs detected. The patient wrote in 4 diary entries (va familia noting chest pain or discomfort, and pain/tingling in the nec k or arm); sinus rhythm (63-99/minute) was present at the associ ated times specified. There were 7 patient-triggered events that correspond ed to sinus rhythm (52-102/minute). Conclusion: This monitor study was remarkable for si nus rhythm. No substantial abnormalities were identified during the ~11 days of monitoring other than rare ectopic beats. No clear rhythm abno rmality to explain syncope and collapse was identified. ____ Interpreted by John Ayon M.D. Lucio Montes De Oca MD CARDIAC SERVICES ORDERABLES documented in this encounter Visit Diagnoses Diagnosis Syncope, unspecified syncope type Constipation, unspecified constipation t ype Syncope, unspecified syncope type documented in this encounter Care Teams Funeral Prearrangement Counselor Relationship Specialty Start Date End Date Allison Hector APRN PCP - General 04/22/14 06/27/[address] [facility] [place] [address] documented as of this encounter
--- OUTSIDE RECORDS SUMMARY | 2021-12-28 04:10 | XMS_ITS | Encounter Summary ---
:1950 Author Organization [facility] [place] [address] Care Team Providers Name Role Phone Allison Hector APRN Primary Care Provider [phone] Reason for Visit Reason Comments Urinary Incontinence Consultation (Routine) - Closed Specialty Diagnoses / Procedures Referred By Contact Refer red To Contact Obstetrics and Diagnoses Urinary incontinence, unspecified type Allison Hector, [facility] Policy Writer 5l Gynecology [employer]SO[employer]PARER [facility] [address] [place] GENERAL INTERNAL [id number] [place] [address] Referral ID Status Reason Start Date Expiration Date Visits V isits Requested Authorized [id number] Closed Consult, 08/17/2015 08/16/2016 1 1 Test & Treat Encounter Details Date Type Department Care Team Description 11/03/2015 Office Visit Obstetrics and Ban Fofana, Urinary incontinence, unspecified type; Gynecology at [facility] [employer] AND OUTSOLE PREPARER Urinary frequency [facility] [address] OBSTETRICS & [id number] GYNECOLOGY [phone] [place], [place] [address] Social History Tobacco Use Types Packs/Day Years Used Date Never Smoker Smokeless Tobacco: Never Used Alcohol Use Standard Drinks/Week Comments No 0 (1 standard drink = 0.6 oz pure alcoho l) Sex Assigned at Date Recorded Not on file documented as of this encounter Last Filed Vital Signs Vital Sign Reading Time Taken Comments Blood Pressure 110/70 11/03/2015 11:26 AM EDT Pulse 64 11/03/2015 11:26 AM EDT Temperature - - Respiratory Rate - - Oxygen Saturation - - Inhaled Oxygen Concentration - - Weight 57.6 kg (127 lb) 11/03/2015 11:26 AM EDT Height 153.7 cm (5' 0.5) 11/03/2015 11:26 AM EDT Body Mass Index 24.39 11/03/2015 11:26 AM EDT documented in this encounter Progress Notes Ban Fofana APRN - 11/03/2015 12:28 PM EDT Female Pelvic Medicine and Reconstructive Surgery @ [facility] Patient Name: Elida Montez Patient Primary Care Provider: ALLISON HECTOR APRN Patient Active Problem List Diagnosis Code ??? Radiculopathy of lumbar region M54.16 ??? Renal mass N28.89 ??? Neck pain M54.2 ??? Asthma J45.909 ??? Health care maintenance Z00.00 ??? Pain in limb (LEG) M79.609 ??? Osteopenia M85.80 ??? Restless leg syndrome G25.81 ??? Low ferritin level R79.0 Chief Complaint: Urinary frequency. History of Present Illness: Ms. Montez is a 65 y.o. old para 3 woman, seen at the kind request of Dr. Allison Hector. She presents for evaluation and assessment of urinary frequency of few months duration. On review ofsymptoms, she has mixed incontinence, with frequency dominating consistent with over active bladder. Goals for this visit 1. Information and help Urinary tract history Patient with no history of recurrent urinary tract infection. Patient with one episode of pyelonephritis. Patient with no history of urinary tract abnormality. Patient with no history of nephrolithiasis. Patient with no history of hematuria. Bladder irritants: Fluid intake:water Caffeine intake: 2 cups a day, no soda Cigarette smoking (packs, time, if quit when): no Alcohol: 1 glass of wine every 6 months Bladder Function Urinary incontinence: yes No. episodes: daily Pad use (per day): 1-2 Pad type: pantyliner Daytime voids: 20+ Nocturia: 2 Previous urinary incontinence treatment (Medical/Behavioral/Surgical): no Storage symptoms x Urinary frequency Nocturia x Stress urinary incontinence - leakage with exertion, cough/sneeze x Urge urinary incontinence - leakage preceded immediately by urge to void Noctural enuresis - NOT IN ASSOCIATION WITH URGE Continuous urinary leakage Other: (e,g. giggle, intercourse-related) Bladder sensation Normal - aware of filling and increased sensation up to desire to void x Increased - feels an early and persistent need to void Reduced - aware of filling but NOT definite desire to void Absent - NO sensation of filling or need to void Non-specific - No specific bladder symptoms during filling or void Voiding symptoms None Slow stream Spraying Intermittent stream - stop/start on > 1 occasion during void Straining - muscular effort to initiate, maintain OR improve stream x Terminal dribble - prolonged final part of void ? Feeling of incomplete emptying Pelvic Organ Prolapse (POP) Any personally see or feel a vaginal bulge? no What precipitates prolapse or symptoms of prolapse? n/a Previous treatment for POP (physical therapy, pessary, surgery)?: n/a Bowel Function Fecal incontinence (yes/no): no Number of fecal incontinent episodes (day/week): none Number of bowel movements (day/week): daily Defecatory Dysfunction: Symptom Presence Symptom Presence NONE x Incomplete Emptying Straining Infrequent stools (<3 week) Splinting Abdominal discomfort Loose stools x Defecatory urgency Hard stools x Other IBS Sexual Function Active?: yes Pain with intercourse?: no If yes, insertional/Deep? n/a Desire to retain sexual function? yes No past medical history on file. No past surgical history on file. Outpatient Prescriptions Marked as Taking for the 11/03/15 encounter (Office Visit) with Ban Fofana APRN Medication Sig Dispense Refill ??? ibandronate (BONIVA) [...] mouth every other day.) 90 tablet 3 ??? Budesonide-Formoterol 160-4.5 mcg/actuation HFA Aerosol Inhaler Inhale 1 puff into the lungs 2 times daily. 1 Inhaler 12 Allergies Allergen Reactions ??? Codeine Nausea And Vomiting History Social History ??? Marital Status: Spouse Name: N/A Number of Children: N/A ??? Years of Education: N/A Occupational History ??? Not on file. Social History Main Topics ??? Smoking status: Never Smoker ??? Smokeless tobacco: Never Used ??? Alcohol Use: No ??? Drug Use: No ??? Sexual Activity: Yes Other Topics Concern ??? Not on file Social History Narrative She has a sister with history of Myasthenia Gravis. She cares for teenage foster child in her home. She lives in [place], [place]. Family History Problem Relation Age of Onset ??? Cerebrovascular Accident Mother ??? Coronary Artery Disease Mother ??? Asthma Mother ??? Coronary Artery Disease Father age 67 ??? Hypertension Brother ??? Cancer Maternal Aunt ??? Coronary Artery Disease Maternal Grandmother ??? Gallbladder Disease Mother ??? Hyperlipidemia Mother ??? Other Sister myasthenia gravis ??? Type 2 Diabetes Neg Hx ??? Lung Cancer Paternal Uncle ??? Cancer Maternal Aunt ??? Esophageal Cancer Maternal Grandfather ??? Cerebrovascular Accident Mother Family history: denies history of gynecologic cancer ROS: Review of all other systems negative except for those mentioned above or indicated below: System Symptom Presence Constitutional Weight Loss Weight gain Eyes History of glaucoma ENT/Mouth Mouth sores/Dry mouth Cardiovascular Chest pain Leg swelling Respiratory Wheezing asthma SOB asthma GI Nausea/vomiting Abdominal pain Sometimes? bowels Skin/Breast Breast masses Rash/ulcer Musculoskeletal Muscle weakness Trouble Walking Neurological Dizziness/falling Numbness Psychiatric Depression Anxiety Endocrine Abnormal thirst Hot flashes Hematologic Frequent bruising History of blood transfusions no Blood clots (DVT / PE) no Prior problems w/ anesthesia no Outside medical records reviewed: 195 pages in system- no recent entries that correspond to her recent symptoms of frequency. Data reviewed (images/urodynamic studies): To further delineate patient's urinary symptoms, a urine dip test and postvoid residual via bladder scanner were obtained. Results for orders placed or performed in visit on 11/03/15 POCT urine dipstick Result Value Ref Range POC Leuk, UA Neg. Negative - Negative POC Nitrite, UA Neg. Negative - Negative POC Blood, UA Neg. Negative - Negative aaron/uL Bladder Scanner Result Value Ref Range Bladder Scan (mL) 20 mL OBJECTIVE: BP 110/70 mmHg Pulse 64 Ht 153.7 cm (5' 0.5) Wt 57.607 kg (127 lb) BMI 24.39 kg/m2 General: normal appearing female, pleasant mood, normal speech Skin: skin of abdomen/pelvis normal Musculoskeletal: levator ani tone (0-5): 3, levator ani contraction (0-5): 3, 0 levator tenderness; lower extremity motor 5/5 bilaterally Pelvic: Cough stress test (empty supine): negative External Genitalia: Vulva, [employer] and Bartholin glands normal, urethra without tenderness or mass Vagina: With Valsalva, the anterior vaginal wall comes 2 cm above the hymen, the posterior vagina wall comes2 cm above the hymen, and the cervix/apex comes 8 cm above the hymen Atrophic epithelium (yes/no)?: yes Discharge?: no Cervix: normal Bimanual (uterus/adnexa): normal POP Q Measurements: Aa -2 Ba -2 C -8 GH 3/3 PB 4/4 TVL 10 Ap -2 Bp -2 D -9 Impression: Ms. Montez is a .65 y.o. woman with: ?? Good pelvic support, history consistent with over active bladder. Recommendations: I reviewed the anatomy and physiology of bladder. We discussed options for management including: Continued observation, pelvic floor exercises (supervised or unsupervised), pessary and/or surgery. Based on the patients expressed goals for management I have recommended the following: For her overactive bladder: We discussed conservative treatments for overactive bladder include dietary changes, decreased caffeine intake, weight loss, timed voids, and urge suppression strategies. We also discussed pelvic floormuscles exercises (Kegel exercises). She was given a three day bladder diary to complete and mail back. Trial of Mirabegron ( if covered) 25 mg for 1-2 months, follow up then to see if any improvement. I spent 50 minutes total with the patient, with 40 minutes of the time spent [id number] in discussing her diagnosis and reviewing options for treatment. (x) ACOG or other informational pamphlets given to patient BAN FOFANA APRN Division of Female Pelvic Medicine/Reconstructive Surgery CC: SOILA JOSHI documented in this encounter Plan of Treatment Not on filedocumented as of this encounter Procedures Procedure Name Priority Date/Time Associated Diagnosis Comme nts BLADDER SCANNER Routine 11/03/2015 Urinary incontinence, Res ults for this unspecified type procedure a re in the results section . POCT URINE DIPSTICK Routine 11/03/2015 Urinary incontinence, Results for this unspecified type procedure a re in the results section . documented in this encounter Results Bladder Scanner (11/03/2015) P athologist Signature Bladder Scan 20 mL (mL) Jerry Sierra MD UROLOGY ORDERABLES POCT urine dipstick (11/03/2015) P athologist Signature POC Leuk, UA Neg. Negative - Negative POC Nitrite, Neg. Negative - UA Negative POC Blood, UA Neg. Negative - Negative aaron/uL Jerry Sierra MD POINT OF CARE TEST ORDERABLE S documented in this encounter Visit Diagnoses Diagnosis Urinary incontinence, unspecified type Urinary frequency documented in this encounter Care Teams Crown Presser Relationship Specialty Start Date End Date Allison Hector APRN PCP - General 04/22/14 06/27/[address] [facility] [address] [place] [place] [address] [place] [address] documented as of this encounter
--- OUTSIDE RECORDS SUMMARY | 2021-12-28 04:10 | XMS_ITS | Encounter Summary ---
:1950 Author Organization [facility] [place] [address] Care Team Providers Name Role Phone Allison Granados APRN Primary Care Provider Reason for Visit Reason Onset Date Comments Follow-up 07/19/2016 Encounter Details Date Type Department Care Team Description 07/19/2016 Telephone Obstetrics and Gynecology at [place] [phone] Social History Tobacco Use Types Packs/Day Years Used Date Never Smoker Smokeless Tobacco: Never Used Alcohol Use Standard Drinks/Week Comments No 0 (1 standard drink = 0.6 oz pure alcoho l) Sex Assigned at Date Recorded Not on file documented as of this encounter Miscellaneous Notes Telephone Encounter - Allison Contreras RN - 07/19/2016 9:36 AM EST TELEPHONE NOTE Caller: Pt Reason for call: I had skin peel off and now very uncomfortable Assessment: Pt saw Liliam Valle ROUTER SETTER in 04/21 for vulvar pain. There was no diagnosis at that time. Ptwas told to do warm baths and apply vaseline to areas of soreness. Pt states last night after doing a bath, a piece of skin from the labia came off. Area is very jordan and sore. Has applied vaseline with no results of symptoms subsiding. Pt would like to seen. Plan/Instructions: Appt made for assessment. documented in this encounter Plan of Treatment Not on filedocumented as of this encounter Visit Diagnoses Not on filedocumented in this encounter Care Teams Flat Finisher Relationship Specialty Start Date End Date Allison Granados, MEDICAL EDUCATOR PCP - General 04/22/14 06/27/[address] [facility] [place] [address] documented as of this encounter
--- OUTSIDE RECORDS SUMMARY | 2021-12-28 04:10 | XMS_ITS | Encounter Summary ---
:1950 Author Organization [facility] [place] [address] Care Team Providers Name Role Phone Allison Hector APRN Primary Care Provider [phone] Reason for Referral Diagnostic Test (Routine) Specialty Diagnoses / Procedures Referred By Contact Refer red To Contact Radiology Diagnoses Renal mass Allison Hector, [facility] Rad Ct Scan Procedures CT Abdomen wwo Contrast CT Abdomen & Pelvis wwo Contrast (Generic) [place] [address] GENERAL INTERNAL Phone: [place] [address] Referral ID Status Reason Start Date Expiration Date Visits V isits Requested Authorized [id number] Specialty 05/13/2016 05/13/2017 1 1 Service Requested Reason for Visit Reason Comments Annual Wellness Visit Encounter Details Date Type Department Care Team Description 05/13/2016 Office Visit Internal Medicine Allison Hector are annual wellness visit, subsequent; at [facility] W, SOILA Gastroesophageal reflux disease without esophagitis; [address] [facility] MEDICAL Encounter for lipid screening for cardiovascular disease; [facility] DR Screening for diabetes mellitus; [place] [address] GENERAL INTERNAL Elevated TSH; [phone] Low ferritin; [place], [place] [address] Renal mass Social History Tobacco Use Types Packs/Day Years Used Date Never Smoker Smokeless Tobacco: Never Used Alcohol Use Standard Drinks/Week Comments No 0 (1 standard drink = 0.6 oz pure alcoho l) Sex Assigned at Date Recorded Not on file documented as of this encounter Last Filed Vital Signs Vital Sign Reading Time Taken Comments Blood Pressure 112/63 05/13/2016 7:47 AM EST Pulse 62 05/13/2016 7:47 AM EST Temperature - - Respiratory Rate - - Oxygen Saturation 100% 05/13/2016 7:47 AM EST Inhaled Oxygen Concentration - - Weight 53.9 kg (118 lb 12.8 oz) 05/13/2016 7:47 AM EST Height 154.9 cm (5' 1) 05/13/2016 7:47 AM EST Body Mass Index 22.45 05/13/2016 7:47 AM EST documented in this encounter Patient Instructions Patient InstructionsAllison Hector, CLIENT RELATIONSHIP EXECUTIVE - 05/13/2016 8:31 AM EST Images from the original note were not included. [facility] Well Visit, Over 65: Care Instructions Your [...] your chances of quitting for good. ?? Always wear sunscreen on exposed skin. Make sure to use a broad-spectrum sunscreen that has a sunprotection factor (SPF) of 30 or higher. Use it every day, even when it is cloudy. ?? See a dentist one or two [...] Where can you learn more? Visit our [facility] information library at [email or web address] You can also view health information on [employer], your personal patient account. Log in or sign up today. Enter K859 in the search box to learn more about Well Visit, Over 65: Care Instructions. ?? 2774-1042 [employer]. Care instructions adapted under license by [employer]. This care instruction is for use with your licensed healthcare professional. If you have questionsabout a medical condition or this instruction, always ask your healthcare professional. [employer] disclaims any warranty or liability for your use of this information. Content Version: 11.0.953830; Current as of: November 01, 2015 Health Maintenance Topic Date Due ??? Advance Directive 09/12/2003 ??? Breast Cancer Screen,every 2 yrs 03/06/2017 ??? Tetanus vaccine 09/16/2018 ??? Colonoscopy every 10 years 12/29/2018 ??? Pneumo vaccine (65+) Completed ??? Bone Density,female 65+ Completed ??? Hepatitis C screening (B. [phone]) Completed ??? Influenza (Flu) vaccine Completed ??? Tdap adult Completed ??? Zoster vaccine Completed [facility] Trochanteric Bursitis: Exercises Your Care Instructions Here [...] 4. Repeat 2 to 4 times. Double hjbg-fk-hzwds 1. Lie on your back with your [...] more? Visit our health information library at [email or web address] You can also view health information on Dom[employer], your personal patient account. Log in or sign up today. Enter N503 in the search box to learn more about Trochanteric Bursitis: Exercises. ?? 2922-4730 [employer]. Care instructions adapted under license by [facility]. This care instruction is for use with your licensed healthcare professional. If you have questionsabout a medical condition or this instruction, always ask your healthcare professional. [employer] disclaims any warranty or liability for your use of this information. Content Version: 11.0.958902; Current as of: November 27, 2015 [facility] Gastroesophageal Reflux Disease (GERD): Care Instructions Your Care Instructions Gastroesophageal reflux disease (GERD) is the backward flow of stomach acid into the esophagus. The esophagus is the tube that leads from your throat to your stomach. A one-way valve prevents the stomach acid from moving up into this tube. When you have GERD, this valve does not close tightly enough. If you have mild GERD symptoms including heartburn, you may be able to control the problem with antacids or crvr-qgc-synbicm medicine. Changing your diet, losing weight, and making other lifestyle changes can also help reduce symptoms. Follow-up care is a camacho part of your treatment and safety. Be sure to make and go to all appointments, and call your doctor if you are having problems. It???s also a good idea to know your test resultsand keep a list of the medicines you take. How can you care for yourself at home? ?? Take your medicines exactly as prescribed. Call your doctor if you think you are having a problemwith your medicine. ?? Your doctor may recommend nkay-ukd-mbfuewg medicine. For mild or occasional indigestion, antacids, such as Tums, Gaviscon, Mylanta, or Maalox, may help. Your doctor also may recommend aqbn-hlr-rnxrbce acid reducers, such as Pepcid AC, Tagamet HB, Zantac 75, or Prilosec. Read and follow all instructions on the label. If you use these medicines often, talk with your doctor. ?? Change your eating habits. ?? It???s best to eat several small meals instead of two or three large meals. ?? After you eat, wait 2 to 3 hours before you lie down. ?? Chocolate, mint, and alcohol can make GERD worse. ?? Spicy foods, foods that have a lot of acid (like tomatoes and oranges), and coffee can make GERD symptoms worse in some people. If your symptoms are worse after you eat a certain food, you may want to stop eating that food to see if your symptoms get better. ?? Do not smoke or chew tobacco. Smoking can make GERD worse. If you need help quitting, talk to your doctor about stop-smoking programs and medicines. These can increase your chances of quitting for good. ?? If you have GERD symptoms at night, raise the head of your bed 6 to 8 inches by putting the frameon blocks or placing a foam wedge under the head of your mattress. (Adding extra pillows does not work.) ?? Do not wear tight clothing around your middle. ?? Lose weight if you need to. Losing just 5 to 10 pounds can help. When should you call for help? Call your doctor now or seek immediate medical care if: ?? You have new or different belly pain. ?? Your stools are black and tarlike or have streaks of blood. Watch closely for changes in your health, and be sure to contact your doctor if: ?? Your symptoms have not improved after 2 days. ?? Food seems to catch in your throat or chest. Where can you learn more? Visit our health information library at [email or web address]/SM[employer]info You can also view health information on Dom[employer]ios, your personal patient account. Log in or sign up today. Enter T927 in the search box to learn more about Gastroesophageal Reflux Disease (GERD): Care Instructions. ?? 2656-0554 [employer]. Care instructions adapted under license by [facility]. This care instruction is for use with your licensed healthcare professional. If you have questionsabout a medical condition or this instruction, always ask your healthcare professional. [employer] disclaims any warranty or liability for your use of this information. Content Version: 11.0.306097; Current as of: May 26, 2015 documented in this encounter Progress Notes Allison Hector APRN - 05/13/2016 8:00 AM EST Patient seen for Annual Wellness visit. Self assessment of Health Status: (ie. patient feels well, concerned about..) AWV: [id number]/9 Other providers: Dr. Malave (optometry in [facility]) Suppliers: none IADLs/ADLs: no problems PC Q - ADLS/IADLS/FALL 05/13/2016 Activity - low level No, I do not have difficulty with these activities Fallen in last year No Difficulties with balance or walking No Falls/Safety: no falls or other issues Hearing difficulty: no Memory issues: no Advanced Care planning: Discussed today Depression- PHQ9 Questionnaires Data (Clinic and Pt Entered): Today's value PHQ-9 QUESTIONNAIRE (AMB) 05/13/2016 PHQ - 9 Score (Clinic) - Little interest or pleasure (Clinic) - Little interest or pleasure (Patient) Not at all Down, depressed, hopeless (Clinic) - Down, depressed, hopeless (Patient) Not at all Past/Family/Social History reviewed and documented below: Personalized health advice to beneficiary and referrals as appropriate: Osteopenia- on boniva and that is going well. Renal Mass- needs to be rechecked this year. Asthma- stable, has been doing ok Low Ferritin- Leg pain- she reports that the leg is bothering her more. The steroid injection helped for a short period of time. She reports that it bothers with sitting, walking and lying down. No numbness or tingling. GERD- on omeprazole Chest pain- has been waking her in the night from sleep. She had stress test in February that was normal. She was seen in Ed on 05/05/16 for severe chest pain. She has labs that were negative for trops. Labs did show an elevated TSH of 10.96. She reports that she has felt tired recently. Our last check in 2014 was normal. Chest pain returned that night, but then has not come back in last week. Review of Systems Constitutional: Positive for fatigue. Negative for chills and fever. Respiratory: Negative for cough and shortness of breath. Cardiovascular: Positive for chest pain (seen in ED, wakes at night). Musculoskeletal: Positive for gait problem (right lateral hip pain). Neurological: Negative for dizziness, light-headedness and headaches. [...] MOUTH AT NIGHT 270 tablet 3 ??? oxybutynin (DITROPAN-XL) 10 mg Tablet Extended [...] K58.9 ??? Urinary frequency R35.0 OBJECTIVE: Vitals: 05/13/16 0747 BP: 112/63 Pulse: 62 SpO2: 100% Weight: 53.9 kg (118 lb 12.8 oz) Height: 154.9 cm (5' 1) PHYSICAL EXAM: Physical Exam Constitutional: She is oriented to person, place, and time. She appears well- developed and well-nourished. HENT: Head: Normocephalic and atraumatic. Right Ear: Tympanic membrane, external ear and ear canal normal. Left Ear: Tympanic membrane, external ear and ear canal normal. Mouth/Throat: Oropharynx is clear and moist. Eyes: Conjunctivae are normal. Pupils are equal, round, and reactive to light. Right eye exhibits nodischarge. Left eye exhibits no discharge. Neck: Normal range of motion. Neck supple. No thyromegaly present. Cardiovascular: Normal rate, regular rhythm and normal heart sounds. Exam reveals no friction rub. No murmur heard. Pulmonary/Chest: Effort normal and breath sounds normal. She has no wheezes. She has no rales. She exhibits no tenderness. Abdominal: Soft. Bowel sounds are normal. She exhibits no distension and no mass. There is no tenderness. There is no rebound and no guarding. Musculoskeletal: Normal range of motion. Right hip: She exhibits tenderness (lateral hip, trochanteric bursa). She exhibits normal strength,no bony tenderness and no swelling. Neg SLR. Lymphadenopathy: She has no cervical adenopathy. Neurological: She is alert and oriented to person, place, and time. She displays normal reflexes. Nocranial nerve deficit. Coordination normal. Skin: Skin is warm and dry. No rash noted. Psychiatric: She has a normal mood and affect. Her behavior is normal. Judgment and thought content normal. ASSESSMENT & PLAN: Elida was seen today for annual wellness visit. Diagnoses and all orders for this visit: Medicare annual wellness visit, subsequent - doing well. Discussed advance directives. - will do fasting labs has not been done recently. Gastroesophageal reflux disease without esophagitis - chest pain improved with GI cocktail per ED note and stress echo has been negative. Likely GERD will switch to nexium to see if helps with symptoms. Will have her take before evening meal to see if helps overnight - esomeprazole (NEXIUM) 40 mg Capsule, Delayed Release(E.C.); Take 1 capsule by mouth daily. Take 30minutes before dinner. Encounter for lipid screening for cardiovascular disease - Lipid panel (fasting); Future Screening for diabetes mellitus - Glucose, fasting; Future Elevated TSH - levothyroxine (SYNTHROID) 50 mcg Tablet; Take 1 tablet by mouth daily. - TSH; Future - US Thyroid Soft Tissue; Future - outside TSH was elevated, will repeat today and start on levothyroxine. Will do repeat TSH in 4 weeks with ultrasound Low ferritin - Ferritin; Future - Iron and TIBC; Future Renal mass - CT Abdomen & Pelvis wwo Contrast (Generic); Future - will do annual CT of abdomen to monitor stability documented in this encounter Miscellaneous Notes Addendum Note - Ophelia Hall LNA - 05/13/2016 8:54 AM EST Addended by: OPHELIA HALL on: 05/13/2016 08:54 AM Modules accepted: Orders documented in this encounter Plan of Treatment Not on filedocumented as of this encounter Procedures Procedure Name Priority Date/Time Associated Diagnosis Comme nts IRON AND TIBC Routine 05/13/2016 9:30 AM Low ferritin Results for this EST procedure are i n the results section. T3 TOTAL Routine 05/13/2016 9:30 AM Results f or this EST procedure are i n the results section. TSH Routine 05/13/2016 9:30 AM Elevated TSH Results f or this EST procedure are i n the results section. T4, FREE Routine 05/13/2016 9:30 AM Results f or this EST procedure are i n the results section. GLUCOSE, FASTING Routine 05/13/2016 9:30 AM Screening for diab etes Results for this EST mellitus procedure are i n the results section. FERRITIN Routine 05/13/2016 9:30 AM Low ferritin Results f or this EST procedure are i n the results section. LIPID PANEL Routine 05/13/2016 9:30 AM Encounter for lipid Re sults for this (REFLEX DIRECT EST screening for procedure ar e in LDL) cardiovascular disease the r esults section. documented in this encounter Results US [...] 10:16 am) PATIENT INFO: ID #: ? [id number] ?: ??[birth year] (65 yrs) Name: ? ELIDA DINH ?Visit Date: 06/10/2016 09:10 am PERFORMED BY: Performed By: ? Angel Lloyd RDMS Attending: ?Senia DARDEN, Eric Faust Associate: ?Jim DARDEN, Vivi Crews Referred By: ?CORIN Villareal MD Secondary Phy.: ?? ALLISON Franks PRN Location: ? [place] SERVICE(S) PROVIDED: ??UTHYRD - Thyroid - [id number] ?[id number] INDICATIONS: ??elevated TSH at outside hospital, inc [...] 06/10/2016 10:16 am) PATIENT INFO: ID #: [id number] : [birth year] (65 y rs) Name: ELIDA DINH Visit Date: 06/10 09:10 am PERFORMED BY: Performed By: Angel Lloyd RDMS Attending: Isaiah Conn MD Associate: Jerry Fernandez MD Referred By: CORIN ENGEL MD Secondary Phy.: ALLISON HECTOR APRN Location: [place] SERVICE(S) PROVIDED: UTHYRD - Thyroid - [id number] INDICATIONS: elevated TSH at outside hospital, incre ased fatigue RIGHT LOBE: Date [...] Corin Engel MD IMG US GEN ORDERABLES CT Abdomen wwo Contrast (06/10/2016 8:25 AM EST) Anatomical Region Laterality Modality Abdomen Computed Tomography Specimen (Source) Anatomical Location Collection Method / Collectio n Time Received Time / Laterality Volume Impressions 06/10/2016 8:34 AM EST Bilateral renal cortical hypodense lesion stable in size and number since April 2014 suggestive of benign renal cysts. Narrative 06/10/2016 8:34 AM EST EXAMINATION: ??CT ABDOMEN WWO CONTRAST CLINICAL HISTORY: ??1 year follow up for renal mass left TECHNIQUE: Helical CT of the abdomen was performed prior to and following the intravenous administration of contrast. ??110 cc of Omnipaque 350 was given. COMPARISON: ??May 04, 2015 FINDINGS: Imaged portions of lung bases are normal . Liver: ??Visualized portions are normal Bile ducts: ??Nondilated. Gallbladder: ??Absent Pancreas: ??Normal Spleen: ??Normal. Previously noted hypod ense lesion not visualized. Adrenal: ??Normal. Kidneys: ??Stable size and number of griffin ateral renal cortical hypodense lesions. These have been stable in size and numbe r since initial CT scan of April 2014. Bowel: Nondilated, no inflammatory johnson es. Lymph nodes: ??No enlarged lymph nodes. Peritoneum: ??No ascites or free air, no fluid collection. Vasculature: Minor atherosclerotic disea se. Osseous structures: No suspicious lesion s. Procedure Note Lyn Gamble MD - 06/10/2016 EXAMINATION: CT ABDOMEN WWO CONTRAST CLINICAL HISTORY: 1 year follow up for r enal mass left TECHNIQUE: Helical CT of the abdomen was performed prior to and following the intravenous administration of contrast. 110 cc of Omnipaque 350 was given. COMPARISON: May 04, 2015 FINDINGS: Imaged portions of lung bases are normal . Liver: Visualized portions are normal Bile ducts: Nondilated. Gallbladder: Absent Pancreas: Normal Spleen: Normal. Previously noted hypoden se lesion not visualized. Adrenal: Normal. Kidneys: Stable size and number of bilat eral renal cortical hypodense lesions. These have been stable in size and numbe r since initial CT scan of April 2014. Bowel: Nondilated, no inflammatory johnson es. Lymph nodes: No enlarged lymph nodes. Peritoneum: No ascites or free air, no f luid collection. Vasculature: Minor atherosclerotic disea se. Osseous structures: No suspicious lesion s. IMPRESSION Bilateral renal cortical hypodense lesio n stable in size and number since April 2014 suggestive of benign renal cysts. Corin Engel MD IMG CT ORDERABLES T3 Total (05/13/2016 9:30 AM EST) athologist Signature T3, Total 133 75 - 170 [facility] LABORATORY Specimen Anatomical Collection Method Collection Time Receive d Time (Source) Location / / Volume Laterality Blood specimen Venous Draw / 05/13/2016 9:30 AM 2015 (specimen) Unknown EST 12:14 PM EST Resulting Agency Comment Spec In Lab Corin Engel MD CHEMISTRY ORDERABLES Performing Organization Address City/State/ZIP Code Phon e Number [address] T4, free (05/13/2016 9:30 AM EST) athologist Signature Free T4 1.07 0.93 - 1.70 [facility] LABORATORY Specimen Anatomical Collection Method Collection Time Receive d Time (Source) Location / / Volume Laterality Blood specimen Venous Draw / 05/13/2016 9:30 AM 2015 (specimen) Unknown EST 12:14 PM EST Resulting Agency Comment Spec In Lab Corin Engel MD CHEMISTRY ORDERABLES Performing Organization Address City/[facility] Phon e Number [address] Glucose, fasting (05/13/2016 9:30 AM EST) athologist Signature Glucose 93 65 - 99 DIXIE CORKY Fasting mg/dL [facility] [...] of Diabetes Mellitus, Position Statement from the [place] [employer]. ??Diabete s Care, Volume 33, Supplement 1, Jul 2009 Specimen Anatomical Collection Method Collection Time Receive d Time (Source) Location / / Volume Laterality Blood specimen 05/13/2016 9:30 AM 016 (specimen) EST 11:56 AM EST Resulting Agency Comment Spec In Lab Corin Engel MD CHEMISTRY ORDERABLES Performing Organization Address City/State/ZIP Code Phon e Number [address] Iron and TIBC (05/13/2016 9:30 AM EST) P athologist Signature Iron 142 30 - 150 DIXIE CORKY mcg/dL [facility] LABORATORY TIBC 307 250 - 450 [facility] LAB[facility]ATORY Iron Saturation 46 20 - 50 % [facility] LABORATORY Specimen Anatomical Collection Method Collection Time Receive d Time (Source) Location / / Volume Laterality Blood specimen 05/13/2016 9:30 AM 016 (specimen) EST 11:56 AM EST Resulting Agency Comment Spec In Lab Corin Engel MD CHEMISTRY ORDERABLES Performing Organization Address City/State/ZIP Code Phon e Number [address] Ferritin (05/13/2016 9:30 AM EST) P athologist Signature Ferritin 150 30 - 400 DIXIE CORKY ng/mL [facility] LABORATORY Comment: Pediatric reference ranges [place] [facility] [place] interpret with caution. Reference ranges for females greater celine n 50 years of age approach values for men, i.e., 30-400 ng/mL. Specimen Anatomical Collection Method Collection Time Receive d Time (Source) Location / / Volume Laterality Blood specimen 05/13/2016 9:30 AM 016 (specimen) EST 11:56 AM EST Resulting Agency Comment Spec In Lab Corin Engel MD CHEMISTRY ORDERABLES Performing Organization Address City/[facility]/ZIP Code Phon e Number [address] TSH (05/13/2016 9:30 AM EST) athologist Signature TSH 3.51 0.27 - 4.20 [facility] mcIU/mL [facility] LABORATORY Specimen Anatomical Collection Method Collection Time Receive d Time (Source) Location / / Volume Laterality Blood specimen 05/13/2016 9:30 AM 016 (specimen) EST 11:56 AM EST Resulting Agency Comment Spec In Lab Corin Engel MD CHEMISTRY ORDERABLES Performing Organization Address City/[facility] [place] [address] (ABNORMAL) Lipid panel (fasting) (05/13/2016 9:30 AM EST) athologist Signature Chol, Total 195 <=199 mg/dL [facility] LAB[facility] Comment: Recommendations of the NCEP Adult Treatm ent Panel for the following risk cutoff thresholds for the [place] populatio n: Desirable: <200 mg/dL Borderline High: 200-239 mg/dL High: > or = 240 mg/dL Triglycerides 94 <=149 mg/dL [facility] Comment: Reference Range: Normal triglycerides: ??<150 mg/dL Borderline high: ??150-199 mg/dL High: ??200-499 mg/dL Very high: ??>gp=755 mg/dL MORGAN 2001; 285(19):[phone] HDL 46 >=40 mg/dL [facility] LABORATORY Comment: Reference range: ??Low HDL: ?? < 40 mg/dL ??Normal: ?40-60 mg/dL ??Desirable: > 60 mg/dL MORGAN 2001; 285(19):[phone] LDL Cholesterol 130 (H) <=99 mg/dL [facility] LABORATORY Comment: Reference range: ?? Optimal: ?<100 mg/dL ?? Near Optimal/Above Optimal: ?? 100-1 29 mg/dL ?? Borderline high: ?130-159 mg/dL ?? High: ? 160-189 mg/dL ?? Very high: ?>ev=170 mg/dL [place]GAN 2001: 285(19):2070-8105 Chol/HDL Ratio 4.2 ratio [facility] Comment: A Cholesterol to HDL ratio below 4:1 is desirable. ??Studies suggest that increased CAD risk occurs at ratios abov e 5 for females and above 6 for men. ? [place] [employer] Association ??(htt p://www.americanheart.org) ? Olga Int Med, 1994; 121:641 ? AM J Med, 1998; 105(1A):48S Specimen Anatomical Collection Method Collection Time Receive d Time (Source) Location / / Volume Laterality Blood specimen 05/13/2016 9:30 AM 016 (specimen) EST 11:56 AM EST Resulting Agency Comment Spec In Lab Corin Engel MD CHEMISTRY ORDERABLES Performing Organization Address City/State/ZIP [place] [address] documented in this encounter Visit Diagnoses Diagnosis Medicare annual wellness visit, subseque nt Routine general medical examination at a health care facility Gastroesophageal reflux disease without esophagitis Esophageal reflux Encounter for lipid screening for cardio vascular disease Screening for diabetes mellitus Elevated TSH Other abnormal blood chemistry Low ferritin Other nonspecific findings on examinatio n of blood Renal mass Unspecified disorder of kidney and urete r Renal mass Unspecified disorder of kidney and urete r Elevated TSH Other abnormal blood chemistry documented in this encounter Care Teams Impression Printer Relationship Specialty Start Date End Date Allison Hector APRN PCP - General 04/22/14 06/27/[address] [facility] [place] [address] documented as of this encounter
--- OUTSIDE RECORDS SUMMARY | 2021-12-28 04:10 | XMS_ITS | Encounter Summary ---
:1950 Author Organization [facility] Address [facility] [place] [address] Care Team Providers Name Role Phone Allison Granados APRN Primary Care Provider [phone] Encounter Details Date Type Department Care Team Description 12/13/2015 Hospital Encounter Non-Invasive Lucio Montes De Oca, Sync ope, unspecified Cardiology Lab Amarilys DARDEN syncope type [facility] [address] [place], [place] [id number] [phone] Social History Tobacco Use Types Packs/Day Years [...] Name Priority Date/Time Associated Diagnosis Comme nts ZIOPATCH Routine 12/13/2015 11:33 AM Syncope, unspecified Results for this EDT syncope type procedure are i n the results section. documented in this encounter Results Ziopatch (12/13/2015 11:33 AM [...] patient wrote in 4 diary entries (va riably noting chest pain or discomfort, and pain/tingling [...] Visit Diagnoses Diagnosis Syncope, unspecified syncope type documented in this encounter Care Teams Patrol Lady Relationship Specialty Start Date End Date Allison Granados APRN PCP - General 04/22/14 06/27/[address] [facility] [place] [address] documented as of this encounter
--- OUTSIDE RECORDS SUMMARY | 2021-12-28 04:10 | XMS_ITS | Encounter Summary ---
:1950 Author Organization [facility] [place] [address] Care Team Providers Name Role Phone Allison Granados APRN Primary Care Provider Reason for Visit Reason Onset Date Comments Follow-up 11/30/2015 Encounter Details Date Type Department Care Team Description 11/30/2015 Telephone Obstetrics and Gynecology at Tiffany [place] [address] Social History Tobacco Use Types Packs/Day Years Used Date Never Smoker Smokeless Tobacco: Never Used Alcohol Use Standard Drinks/Week Comments No 0 (1 standard drink = 0.6 oz pure alcoho l) Sex Assigned at Date Recorded Not on file documented as of this encounter Miscellaneous Notes Telephone Encounter - Allison Contreras RN - 11/30/2015 11:05 AM EDT TELEPHONE NOTE Caller: Ruba Contreras RN Reason for call: Follow up phone call Assessment: Pt saw about 3 weeks for urge incontinence and was started on Oxybutynin XL5 mg. Pt states she is hardly leaking and if she does leak it is a small amount. Majority of the time she is able to make it to the BR. Emptying bladder completely. Slight dry mouth but uses products to help relieve symptoms. Pt interested in increasing dosage if possible. Plan/Instructions: Will review with regarding increasing dosage. Per , pt can increase her 5 mg to 2 tabs a day, if no increase of dry mouth can do script for 10 gm. Pt will call back with results. documented in this encounter Plan of Treatment Not on filedocumented as of this encounter Visit Diagnoses Not on filedocumented in this encounter Care Teams Composition Weatherboard Applier Relationship Specialty Start Date End Date Allison Granados, SOILA PCP - General 04/22/14 06/27/[address] [facility] [place] [address] documented as of this encounter
--- OUTSIDE RECORDS SUMMARY | 2021-12-28 04:10 | XMS_ITS | Encounter Summary ---
:1950 Author Organization [facility] [place] [address] Care Team Providers Name Role Phone Allison Granados APRN Primary Care Provider [phone] Reason for Visit Reason Onset Date Comments Medication Refill 11/01/2015 Encounter Details Date Type Department Care Team Description 11/01/2015 Refill Internal Medicine at [facility] [address] [place] [id number] Social History Tobacco Use Types Packs/Day Years [...] filedocumented in this encounter Care Teams Manager Deli Relationship Specialty Start Date End Date Allison Granados APRN PCP - General 04/22/14 06/27/21 [facility] [place] [address] documented as of this encounter
--- OUTSIDE RECORDS SUMMARY | 2021-12-28 04:10 | XMS_ITS | Encounter Summary ---
:1950 Author Organization [facility] [place] [address] Care Team Providers Name Role Phone Roberta Allison Rain APRN Primary Care Provider [phone] Reason for Visit Reason Comments Follow-up open sore Encounter Details Date Type Department Care Team Description 07/19/2016 Office Visit Obstetrics and Gynecology Remy Davis Vulvar lesion at [facility] D [facility] [place] [address] [place] [address] OBSTETRICS & [phone] GYNECOLOGY [place], [place] [address] (Wo rk) Social History Tobacco Use Types Packs/Day Years Used Date Never Smoker Smokeless Tobacco: Never Used Alcohol Use Standard Drinks/Week Comments No 0 (1 standard drink = 0.6 oz pure alcoho l) Sex Assigned at Date Recorded Not on file documented as of this encounter Last Filed Vital Signs Vital Sign Reading Time Taken Comments Blood Pressure 116/70 07/19/2016 12:45 PM EST Pulse 72 07/19/2016 12:45 PM EST Temperature 36.7 ??C (98.1 ??F) 07/19/2016 12:45 PM EST Respiratory Rate - - Oxygen Saturation 98% 07/19/2016 12:45 PM EST Inhaled Oxygen Concentration - - Weight 54 kg (119 lb) 07/19/2016 12:45 PM EST Height - - Body Mass Index 22.48 05/13/2016 7:47 AM EST documented in this encounter Progress Notes Marcella Davis CNM - 07/19/2016 1:00 PM EST Department of Machine Tester Established Patient - Follow up visit PCP: Allison Granados APRN Hotel Service Supervisor provider: Christianne Valle APRN Patient new to me Patient preferred way to be contacted: home # Elida Montez is a 65 y.o. year old woman who is here today for: vulvar sore Ms Montez was seen by Ms Valle on 04/22/16 for a complaint of vulvar sores of 1 month duration. She reported feeling a stabbing pain at times and at other times not as bad. On exam she was found to have a sl open abrasion on the R inner labia minora with possible hypopigmented changes and no loss of vulvar architecture. Dr Wen was in to evaluate the pt, unclear etiology. Yeast culture and HSV 1& 2 by PCR were sent, both came back negative. The pt was advised to use vaseline and soaks. She called today and this appt was made for her because last night after bathing a piece of skin from her labia came off, and it is red and even more sore. She says that after being seen in Apr her symptoms have not improved. She has had intermittent itching, irritation and soreness since the fall, and says vaseline helps for a minute but then stops helping. Her symptoms got worse last night after bathing then the piece of skin came off. She denies abnormal vaginal discharge, odor, dysuria, changes in bowel function, abdominal or pelvic pain. She denies using any OTC products except vaseline. She denies hx of any skin condition. Postmenopausal - no vaginal bleeding or spotting On partner, , rare sexual activity. Her PMHx is significant for osteopenia, on boniva; renal mass with followup planned; low ferritin level on iron supplementation; RLS on requip; gerd; hypothyroid; chest pain s/p nl stress test, followed by PCP. She has urinary urge incontinence and has seen Torrey Valle for that, has been on oxybutynin 10mg XL. She saw today that she does not think the oxybutynin is being absorbed because she sees the tablets in her stool. She would like to switch back to the 5 mg XL which she says worked better. 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 Asthma [...] pain ??? Radiculopathy of lumbar region ??? IBS (irritable bowel syndrome) ??? Urinary frequency No past medical history on file. Past Surgical History Procedure Laterality Date ??? Cholecystectomy, laparoscopic ??? Tonsillectomy and adenoidectomy ??? Cataract removal ??? Eye surgery macular hole ??? Pro upper gi endoscopy, diagnostic N/A 12/25/2015 EGD, UPPER GI ENDOSCOPY performed by Jeff Schneider MD at [facility] ENDOSCOPY SOCIAL/HEALTH RELATED HABITS: Social History Narrative She has a sister with history of Myasthenia Gravis. 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 Social History Substance Use Topics ??? Smoking status: Never Smoker ??? Smokeless tobacco: Never Used ??? Alcohol use No Current Outpatient Prescriptions on File Prior to Visit Medication Sig Dispense Refill ??? esomeprazole (NEXIUM) 40 mg Capsule, Delayed [...] mouth daily. (Patient not taking: Reported on 07/19/2016) 30 tablet 12 No current facility-administered medications on file prior to visit. Allergies Allergen Reactions ??? Codeine Nausea And Vomiting EXAM: problem focussed BP 116/70 Pulse 72 Temp 36.7 ??C (98.1 ??F) Wt 54 kg (119 lb) SpO2 98% BMI 22.48 kg/m2 General: well appearing woman in NAD Abdomen: soft, non-tender, no masses Pelvic exam: Vulva: Atrophic changes c/w postmenopausal status. Normal vulvar anatomy. On the lower aspect of theR inner labia minora there are two small (2-3 mm) oval very shallow ulcerations or abrasions with scant clear exudate. The top one has a bit of membrane over it. They do not extend into introitus or vagina. This is where the pt is feeling symptoms. No other lesions or ulcerations seen, no nodules, no excoriation, no fissuring, no white epithelium or other vulvar skin changes. Urethral meatus: wnl, BUS neg; atrophic changes c/w postmenopausal status. Vagina: pink, no visible lesions, scant discharge without odor Cervix: visualized, closed; no CMT, lesions, discharge Bimanual exam: deferred IMPRESSION: Postmenopausal woman with persistent vulvar lesion - very shallow ulceration v abrasion PLAN: I asked Dr Wen to examine the pt who did so and did not feel this was likely an ulcer, no clear etiology. She suggested biopsy today vs use clobetasol daily x a month and reevaluate, if persistent then biopsy. These options were discussed with the pt who opted to have a biopsy today. We discussed the process of biopsy and what to expect afterwards. Advised vaseline only until biopsy site heals. Vulvar biopsy: Prior to the start of the procedure, a time out was performed. I confirmed the patient's identity, intended procedure, and the availability of equipment needed. Emla cream applied to area for biopsy x 10-15 mins, followed by betadine wash, and installation of .5 - 1.0 cc of 1% lidocaine with 1/100,000epinephrine. 3.5 mm punch obtained, removed with pickups and scissors, bleeding controlled with nitrate stick and pressure with sterile 2x2. Sample sent to pathology. Will contact patient regarding biopsy results and make plan of care based on results. RV/call prn questions, concerns, problems. HSV 1 & 2 PCR was also obtained and sent. Will follow up with results. Addendum: HSV neg. Prescription for oxybutynin 5 mg XL was sent to her pharmacy per her request, #90 with 3 refills. Marcelal Davis CNM, MSN documented in this encounter Plan of Treatment Not on filedocumented as of this encounter Procedures Procedure Name Priority Date/Time Associated Diagnosis Comme nts SPECIMEN TO Routine 07/19/2016 3:33 PM Vulvar lesion Results for this PATHOLOGY (NON-OR) EST procedure are in the results section. HSV 1 AND 2 PCR Routine 07/19/2016 3:33 PM Vulvar lesion Resul ts for this EST procedure are i n the results section. SURGICAL PATHOLOGY Routine 07/19/2016 3:33 PM Res ults for this REPORT EST procedure are i n the results section. documented in this encounter Results Surgical Pathology Report (07/19/2016 3:33 PM EST) Component Value Ref Test Analysis Performed At [facility] Method Time Signature Surgical [id number] ?Location: [facility]L [facility] Report The signing pathologist has (i) examined the relevant preparation(s) for the [facility] specimen(s) and (ii) rendered or confirmed the diagnosis(es) . HOSPITAL LABORATORY . ?Surgic al Pathology DIAGNOSIS Vulvar lesion, right inner labium, biopsy: ?? Epidermal acanthosis and hyperkeratosis with focus ?? of ulceration and inflammation, cannot exclude ?? d-STEFF (see Discussion). CR-0 Electronically signed by: ??Cristino DARDEN, Danial Sanchez Verified: ??07/23/2016 ?Pathologist DISCUSSION The sections show epidermal acanthosis associated with hyperkeratosis and a focus of ulceration with surface fib rinopurulent exudate and acute and chronic inflammation. There is basal cell atypia associated with P53 basal cell nuclear immunoreactivity that is near contiguous. Th e possibility of d-STEFF (STEFF simplex) is not excluded. ??The PAS/fungal stain is negative. Ear ly changes of lichen sclerosus are not excluded. ADDITIONAL STUDIES Formalin-fixed, paraffin-emb edded tissue sections are studied using the Flashnotes system technique with appropriate positive and negative controls. Block ? Antibody ?Result (Degree of immu noreactivity) A-1 ?P53 ?Increased (near faith guous) IHC studies provide the path ologist with adjunctive diagnostic information. Antibody specificity has been verified by testing antibodies o n a series of in-house tissues with known immunohi stochemical performance characteristics. The clinical interpretation of any antib maeve positive staining or its absence is evaluated within the context of clinical pre sentation, morphology, ??histopathological criteria and other diagnostic tests. Special Stains: Formalin-fixed, paraffin-embedded tissue sections are studied with appropriate positive controls. Block ? Special Stain ? Result (Positive/Ne gative) A-1 ?PAS/Fungus ? Negative CLINICAL INFORMATION Specimen Submitted: A - Vulvar - inner R labia Clinical History: Vulvar burning, shallow area of ulceration or denuded Clinical Diagnosis: Uncertain SPECIMEN PROCESSING A - Labeled/Fixative: Patient demographics, formalin. Quantity/Size: One, 0.3 x 0.3 x 0.2 cm. Tissue Description: Slightly hemorrhagic, rubbery zepeda tissue fragment. Sections/Processing: (T1) ??ksb Specimen (Source) Anatomical Collection Method Collection Time Re ceived Time Location / / Volume Laterality 07/19/2016 3:33 PM EST Marcella Davis CN PATHOLOGY/CYTOLOGY ORDERABLE S Performing Organization Address City/[facility]/[place] [address] HSV 1 and 2 PCR (07/19/2016 3:33 PM EST) [facility] gist Method Time Signature HSV-1 PCR Not Detected Not Detected [facility] HSV-2 PCR Not Detected Not Detected [facility] HSV Source Vulval [facility] Comment: The only FDA approved specimen types for this assay are CSF and genital lesions. Specimen Anatomical Collection Method Collection Time Receive d Time (Source) Location / / Volume Laterality Specimen from 07/19/2016 3:33 PM 07/19/19 17 5:04 vulva (specimen) EST PM EST Resulting Agency Comment Spec In Lab Hina Wen MD MICROBIOLOGY - GENERAL ORDER SOURAV Performing Organization Address City/[facility]/[place] [address] Specimen to Pathology (NON-OR) (07/19/2016 3:33 PM EST) Specimen Anatomical Collection Method Collection Time Receive d Time (Source) Location / / Volume Laterality AP Specimen 07/19/2016 3:33 PM 7 3:33 EST PM EST Narrative [facility] - 07/19/2016 3:33 PM EST Specimen requisition ordered. ??Separate Pathology report to follow Hina Wen MD PATHOLOGY/CYTOLOGY ORDERABLE S Performing Organization Address City/[facility]/[place] [address] documented in this encounter Visit Diagnoses Diagnosis Vulvar lesion Other specified noninflammatory disorder of vulva and perineum documented in this encounter Care Teams Quality Liaison Relationship Specialty Start Date End Date Allison Granados APRN PCP - General 04/22/14 06/27/[address] [facility] [address] [place] [address] documented as of this encounter
--- OUTSIDE RECORDS SUMMARY | 2021-12-28 04:10 | XMS_ITS | Encounter Summary ---
:1950 Author Organization [place] [address] Care Team Providers Name Role Phone Allison Hector APRN Primary Care Provider [phone] Reason for Visit Reason Onset Date Comments Medication Refill 04/27/2016 Encounter Details Date Type Department Care Team Description 04/29/2016 Refill Internal Medicine at [facility] Perri Alba RN [address] [place] [address] [id number] Social History Tobacco Use Types Packs/Day Years Used Date Never Smoker Smokeless Tobacco: Never Used Alcohol Use Standard Drinks/Week Comments No 0 (1 standard drink = 0.6 oz pure alcoho l) Sex Assigned at Date Recorded Not on file documented as of this encounter Miscellaneous Notes Telephone Encounter - Perri Alba RN - 04/29/2016 10:15 AM EDT From: Elida Nikolay Tc To: Allison Hector APRN Sent: 04/27/2016 8:41 AM EDT Subject: Medication Renewal Request Original authorizing provider: ALLISON HECTOR APRN Elida Montez would like a refill of the following medications: albuterol (PROVENTIL HFA;VENTOLIN HFA;PROAIR) 90 mcg/actuation HFA Aerosol Inhaler [ALLISON W TAWNY, RESOURCE TEACHER] Preferred pharmacy: [id number] - [facility] [place] - [address] [facility] Comment: documented in this encounter Plan of Treatment Not on filedocumented as of this encounter Visit Diagnoses Not on filedocumented in this encounter Care Teams Wood Lather Relationship Specialty Start Date End Date Allison Hector, RESOURCE TEACHER PCP - General 04/22/14 06/27/[address] [facility] [address] [place] [address] documented as of this encounter
--- OUTSIDE RECORDS SUMMARY | 2021-12-28 04:10 | XMS_ITS | Encounter Summary ---
:1950 Author Organization [facility] [place] [address] Care Team Providers Name Role Phone Allison Granados APRN Primary Care Provider [phone] Reason for Visit Reason Onset Date Comments Medication Refill 06/27/2015 Encounter Details Date Type Department Care Team Description 06/27/2015 Refill Internal Medicine at [facility] Poly Mcpherson [address] [place] [address] [id number] Social History Tobacco Use Types Packs/Day Years Used Date Never Smoker Smokeless Tobacco: Never Used Alcohol Use Standard Drinks/Week Comments No 0 (1 standard drink = 0.6 oz pure alcoho l) Sex Assigned at Date Recorded Not on file documented as of this encounter Miscellaneous Notes Telephone Encounter - Poly Mcpherson - 06/27/2015 8:55 AM EST Patient didn't realize that she needed a new prescription, she went to refill and she is almost out. documented in this encounter Plan of Treatment Not on filedocumented as of this encounter Visit Diagnoses Not on filedocumented in this encounter Care Teams Fisher Trammel Net Relationship Specialty Start Date End Date Allison Granados APRN PCP - General 04/22/14 06/27/[address] [facility] [address] [place] [address] documented as of this encounter
--- OUTSIDE RECORDS SUMMARY | 2021-12-28 04:10 | XMS_ITS | Encounter Summary ---
:1950 Author Organization [facility] [place] [address] Care Team Providers Name Role Phone Allison Hector APRN Primary Care Provider Reason for Visit Reason Comments Vaginal Discharge vaginal irritation feels cu t Encounter Details Date Type Department Care Team Description 04/22/2016 Office Visit Obstetrics and Gynecology Mendy Valle APRN Vulvar pain at [facility] Marilyn espinal OBSTETRICS & [place] [address] [place] [address] [phone] (Wo rk) Social History Tobacco Use Types Packs/Day Years Used Date Never Smoker Smokeless Tobacco: Never Used Alcohol Use Standard Drinks/Week Comments No 0 (1 standard drink = 0.6 oz pure alcoho l) Sex Assigned at Date Recorded Not on file documented as of this encounter Last Filed Vital Signs Vital Sign Reading Time Taken Comments Blood Pressure 120/68 04/22/2016 2:37 PM EDT Pulse 60 04/22/2016 2:37 PM EDT Temperature - - Respiratory Rate 12 04/22/2016 2:37 PM EDT Oxygen Saturation - - Inhaled Oxygen Concentration - - Weight 53.5 kg (118 lb) 04/22/2016 2:37 PM EDT Height 152.4 cm (5') 04/22/2016 2:37 PM EDT Body Mass Index 23.05 04/22/2016 2:37 PM EDT documented in this encounter Progress Notes Mendy Valle, PRODUCTION ILLUSTRATOR - 04/22/2016 2:45 PM EDT Elida Montez [id number] ALLISON HECTOR, PRODUCTION ILLUSTRATOR 04/22/2016 Gynecologic Visit Patient Active Problem List Diagnosis Code ??? Radiculopathy of lumbar region M54.16 ??? Renal mass N28.89 ??? Neck pain M54.2 ??? Asthma J45.909 ??? Health care maintenance Z00.00 ??? Pain in limb (LEG) M79.609 ??? Osteopenia M85.80 ??? Restless leg syndrome G25.81 ??? Low ferritin level R79.0 ??? IBS (irritable bowel syndrome) K58.9 ??? Urinary frequency R35.0 SUBJECTIVE:. Elida Montezis a 65 y.o.woman who presents today for vulvar sores of one month duration. States can feel very painful at times- a stabbing pain and other times not as bad. Tried monistat and did not help. Using dove to wash with, nothing else, uses all free laundry detergent, no changes in medications, oxybutynin helping the urgency with one steady partner. Post menopausal with no bleeding since that time Outpatient Encounter Prescriptions as of 04/22/2016 Medication Sig Dispense Refill ??? rOPINIRole (REQUIP) 0.5 mg Tablet TAKE [...] every other day.) 90 tablet 3 No facility-administered encounter medications on file as of 04/22/2016. Allergies as of 04/22/2016 - Review Complete 04/22/2016 Allergen Reaction Noted ??? Codeine Nausea And Vomiting 03/04/2014 OBJECTIVE: BP 120/68 Pulse 60 Resp 12 Ht 152.4 cm (5') Wt 53.5 kg (118 lb) BMI 23.05 kg/m2 Exam: Vulva: one slightly open abrasion R inner labia minora with very subtle,possible hypopigmented changes, 2 red spots on L and at introital opening, no loss of architecture noted. Vagina: normal Cervix: normal ASSESSMENT: Soreness on inner labia minora for one month, intermittently PLAN: Yeast and HSV culture pending Had Dr. Wen check the area. Unclear etiology. Soaks and Vaseline for now, may try lidocaine ointment in future. Denies any lower back injuries documented in this encounter Plan of Treatment Not on filedocumented as of this encounter Procedures Procedure Name Priority Date/Time Associated Diagnosis Comme nts HSV 1 AND 2 PCR Routine 04/22/2016 4:17 PM Vulvar pain Result s for this EDT procedure are i n the results section. YEAST CULTURE Routine 04/22/2016 4:17 PM Vulvar pain Results for this EDT procedure are i n the results section. documented in this encounter Results Yeast culture Vaginal (04/22/2016 4:17 PM EDT) [facility] Method Time Signature Yeast Culture No Yeast [facility] LABORATORY Specimen Anatomical Collection Method Collection Time Receive d Time (Source) Location / / Volume Laterality Vaginal 04/22/2016 4:17 PM 6 4:17 EDT PM EDT Resulting Agency Comment Spec In Lab Hina Wen MD MICROBIOLOGY - GENERAL ORDER SOURAV Performing Organization Address City/[facility]/[place] [address] HSV 1 and 2 PCR (04/22/2016 4:17 PM EDT) [facility] Method Time Signature HSV-1 PCR Not Detected Not Detected [facility] HSV-2 PCR Not Detected Not Detected [facility] HSV Source Vaginal [facility] Comment: The only FDA approved specimen types for this assay are CSF and genital lesions. Specimen Anatomical Collection Method Collection Time Receive d Time (Source) Location / / Volume Laterality Vaginal 04/22/2016 4:17 PM 6 4:17 EDT PM EDT Resulting Agency Comment Spec In Lab Hina eWn MD MICROBIOLOGY - GENERAL ORDER SOURAV Performing Organization Address City/[facility]/[place] [address] documented in this encounter Visit Diagnoses Diagnosis Vulvar pain Unspecified symptom associated with fema le genital organs documented in this encounter Care Teams Drug Inspector Relationship Specialty Start Date End Date Allison Hector APRN PCP - General 04/22/14 06/27/[address] [facility] [place] [address] documented as of this encounter
--- OUTSIDE RECORDS SUMMARY | 2021-12-28 04:10 | XMS_ITS | Encounter Summary ---
:1950 Author Organization [facility] [place] [address] Care Team Providers Name Role Phone Allison Granados APRN Primary Care Provider [phone] Reason for Visit MRI/CAT Scan (Routine) - Closed Specialty Diagnoses / Procedures Referred By Contact Refer red To Contact Radiology Diagnoses Renal mass Lorri Moran MD [facility] Rad Ct Scan Procedures PRG CT SCAN ABDOMEN W/O&W CONTRAST [facility] GENERAL INTERNAL [place], [place] [phone] [place] [address] Referral ID Status Reason Start Date Expiration Date Visits Requ ested Visits Authorized [id number] Closed 05/03/2015 05/02/2016 1 1 Encounter Details Date Type Department Care Team Description 05/04/[address] [facility] [place] [facility] Lorri Moran MD Renal [place] [address] GENERAL INTERNAL [phone] [place], [place] [address] (Wo rk) Social History Tobacco Use Types Packs/Day Years Used Date Never Smoker Smokeless Tobacco: Never Used Alcohol Use Standard Drinks/Week Comments No 0 (1 standard drink = 0.6 oz pure alcoho l) Sex Assigned at Date Recorded Not on file documented as of this encounter Medications at Time of Discharge Medication Sig Dispensed Refills Start Date End Date albuterol (PROVENTIL Inhale 2 puffs into 1 Inhaler 3 201404/29/2016 HFA;VENTOLIN HFA;PROAIR) the lungs as 90 mcg/actuation HFA needed. Use with Aerosol Inhaler spacer rOPINIRole (REQUIP) 0.5 Take 3 tablets by 90 tablet 3 02/2106/27/2015 mg Tablet mouth nightly. ferrous sulfate 325 mg Take 1 tablet by 90 tablet 3 015 04/29/2016 (65 mg iron) Tablet, mouth daily. Delayed Release (E.C.) omeprazole (PRILOSEC) 20 Take 1 capsule by 30 capsule 11 11/0510/30/2015 mg Capsule, Delayed mouth daily. Release(E.C.)Indications: Gastroesophageal reflux disease without esophagitis Budesonide-Formoterol Inhale 1 puff into 1 Inhaler 12 201411/09/2015 160-4.5 mcg/actuation HFA the lungs 2 times Aerosol Inhaler daily. ibandronate (BONIVA) 150 Take 1 tablet by 1 tablet 12 10/2011/01/2015 mg Tablet mouth every 30 days. Take in AM with full glass of water, on an empty stomach. Do not lie down for 30 min. triamcinolone (KENALOG) Apply 1 Application 0 10/30/2015 0.1 % Cream topically as needed. documented as of this encounter Plan of Treatment Not on filedocumented as of this encounter Procedures Procedure Name Priority Date/Time Associated Diagnosis Comme nts CT ABDOMEN WWO Routine 05/04/2015 7:54 AM Renal mass Results for this CONTRAST EDT procedure are i n the results section. documented in this encounter Results CT abdomen with/WO contrast (05/04/2015 7:54 AM EDT) Anatomical Region Laterality Modality Abdomen Computed Tomography Specimen (Source) Anatomical Location Collection Method / Collectio n Time Received Time / Laterality Volume Impressions 05/04/2015 9:50 AM EDT IMPRESSION: 1. ??No change in the irregular low dens ity lesion in the left kidney since 2013. Recommend 1 year interval follow-up CT. 2. ??Stable well-circumscribed low-densi ty lesions in the left kidney, most consistent with renal cysts, the largest measuring 11 mm. 3. Stable low-density lesion within the right kidney, too small to characterize. 4. Stable sub-5 mm low-density splenic l esion, too small to characterize. I have personally reviewed the image(s) and the residents interpretation and agree with the findings, Juan lam at 05/04/2015 9:50 AM Narrative 05/04/2015 9:50 AM EDT EXAMINATION: ??CT ABDOMEN WITH/WO CONTRAST CLINICAL HISTORY: ??f/u left kidney lesi on TECHNIQUE: Helical CT of the abdomen was performed prior to and following the intravenous administration of contrast. ??110 cc of Omnipaque 350 was given. Oral contrast was administered. Coronal and s agittal reformatted images were obtained. COMPARISON: ??CT abdomen with and withou t contrast 10/05/[address] abdomen with and without 04/21/2014. FINDINGS: Partially visualized lung bases are kristian r. Liver: ??Liver is normal in size, contou r and attenuation. No focal hepatic lesions. Gallbladder surgically absent. No intrahepatic or extrahepatic biliary ductal dilatation. Pancreas and adrenal glands are within normal limits. Stable sub-5 mm low-density splenic lesion, too small to characterize. Right kidney: Stable 7 mm low-density le pato within the superior pole of the right kidney, too small to characterize. No hydronephrosis or renal calculi. Left kidney: Stable appearance of irregu lar, low-density 13 mm lesion on both the 90 second (series 4 image 25) and 5 minute (series 6 image 13) contrast delayed images, 11 mm left superior pole low-density lesion and multiple sub-5 mm low-density lesions. No hydronephrosi s or renal calculi. No dilated loops of large or small bowel . No inflammatory changes or bowel wall thickening. No enlarged abdominal lymph nodes. No free intraperitoneal air or intra-abdominal fluid collection. No jose ramon picious sclerotic or lytic osseous lesions. Minor atherosclerotic disease. Procedure Note Juan Cowan MD - 05/04/2015Form atting of this note might be different from the original. EXAMINATION: CT ABDOMEN WITH/WO CONTRAST CLINICAL HISTORY: f/u left kidney lesion TECHNIQUE: Helical CT of the abdomen was performed prior to and following the intravenous administration of contrast. 110 cc of Omnipaque 350 was given. Oral contrast was administered. Coronal and s agittal reformatted images were obtained. COMPARISON: CT abdomen with and without contrast 10/05/[address] abdomen with and without 04/21/2014. FINDINGS: Partially visualized lung bases are kristian r. Liver: Liver is normal in size, contour and attenuation. No focal hepatic lesions. Gallbladder surgically absent. No intrahepatic or extrahepatic biliary ductal dilatation. Pancreas and adrenal glands are within normal limits. Stable sub-5 mm low-density splenic lesion, too small to characterize. Right kidney: Stable 7 mm low-density le pato within the superior pole of the right kidney, too small to characterize. No hydronephrosis or renal calculi. Left kidney: Stable appearance of irregu lar, low-density 13 mm lesion on both the 90 second (series 4 image 25) and 5 minute (series 6 image 13) contrast delayed images, 11 mm left superior pole low-density lesion and multiple sub-5 mm low-density lesions. No hydronephrosi s or renal calculi. No dilated loops of large or small bowel . No inflammatory changes or bowel wall thickening. No enlarged abdominal lymph nodes. No free intraperitoneal air or intra-abdominal fluid collection. No jose ramon picious sclerotic or lytic osseous lesions. Minor atherosclerotic disease. IMPRESSION IMPRESSION: 1. No change in the irregular low densit y lesion in the left kidney since 2013. Recommend 1 year interval follow-up CT. 2. Stable well-circumscribed low-density lesions in the left kidney, most consistent with renal cysts, the largest measuring 11 mm. 3. Stable low-density lesion within the right kidney, too small to characterize. 4. Stable sub-5 mm low-density splenic l esion, too small to characterize. I have personally reviewed the image(s) and the residents interpretation and agree with the findings, Juan lam at 05/04/2015 9:50 AM Lorri Moran MD G CT ORDERABLES documented in this encounter Visit Diagnoses Diagnosis Renal mass Unspecified disorder of kidney and urete r documented in this encounter Administered Medications Inactive Administered Medications - up to 3 most recent administrations Medication Order MAR Action Action Date Dose Rate Site iohexol (OMNIPAQUE) 350 mg/mL Given 05/04/2015 7:54 AM EDT 38,50 0 mg solution 38,500 mg 38,500 mg (110 mL), Intravenous, ONCE PRN, 1 dose, Starting on Shannan 05/04/15 at 0753, Until Shannan 05/04/15 at 0754, Per Protocol, Routine documented in this encounter Care Teams Test Carrier Relationship Specialty Start Date End Date Allison Granados, COUNTER WEIGHER PCP - General 04/22/14 06/27/[address] [facility] [place] [address] documented as of this encounter
--- OUTSIDE RECORDS SUMMARY | 2021-12-28 04:10 | XMS_ITS | Encounter Summary ---
:1950 Author Organization [facility] [place] [address] Care Team Providers Name Role Phone Allison Hector APRN Primary Care Provider [phone] Reason for Visit Reason Comments Follow-up oab ditropan xl 10mg Encounter Details Date Type Department Care Team Description 01/01/2016 Office Visit Obstetrics and Mendy Valle, OAB (ov eractive Gynecology at [facility] BIOLOGICAL INSPECTOR bladder) [facility] [address] [place] OBSTETRICS & [address] GYNECOLOGY [phone] [place], [place] [address] Social History Tobacco Use Types Packs/Day Years Used Date Never Smoker Smokeless Tobacco: Never Used Alcohol Use Standard Drinks/Week Comments No 0 (1 standard drink = 0.6 oz pure alcoho l) Sex Assigned at Date Recorded Not on file documented as of this encounter Last Filed Vital Signs Vital Sign Reading Time Taken Comments Blood Pressure 116/66 01/01/2016 9:42 AM EDT Pulse 60 01/01/2016 9:42 AM EDT Temperature - - Respiratory Rate 12 01/01/2016 9:42 AM EDT Oxygen Saturation - - Inhaled Oxygen Concentration - - Weight 55.8 kg (123 lb) 01/01/2016 9:42 AM EDT Height 152.4 cm (5') 01/01/2016 9:42 AM EDT Body Mass Index 24.02 01/01/2016 9:42 AM EDT documented in this encounter Progress Notes Mendy Valle, BIOLOGICAL INSPECTOR - 01/01/2016 9:55 AM EDT Elida Montez [id number] ALLISON HECTOR, BIOLOGICAL INSPECTOR 01/01/2016 Gynecologic Visit Patient Active Problem List Diagnosis Code ??? Radiculopathy of lumbar region M54.16 ??? Renal mass N28.89 ??? Neck pain M54.2 ??? Asthma J45.909 ??? Health care maintenance Z00.00 ??? Pain in limb (LEG) M79.609 ??? Osteopenia M85.80 ??? Restless leg syndrome G25.81 ??? Low ferritin level R79.0 ??? IBS (irritable bowel syndrome) K58.9 ??? Urinary frequency R35.0 SUBJECTIVE: Elida Montezis a 65 y.o.woman who presents today for follow up of her over active bladder. She was started on oxybutynin 5 mg, then increased to 10 mg. Her bladder scan today is 0 cc. She has noted a dry mouth but is tolerating the side effects and would like to continue with this medication. Outpatient Encounter Prescriptions as of 01/01/2016 Medication Sig Dispense Refill ??? oxybutynin (DITROPAN-XL) [...] facility-administered encounter medications on file as of 01/01/2016. Allergies as of 01/01/2016 - Review Complete 01/01/2016 Allergen Reaction Noted ??? Codeine Nausea And Vomiting 03/04/2014 OBJECTIVE: BP 116/66 Pulse 60 Resp 12 Ht 152.4 cm (5') Wt 55.8 kg (123 lb) BMI 24.02 kg/m2 Exam was not done today. ASSESSMENT: Doing well with minimal leakage on Oxybutynin 10 mg daily, tolerating the side effects. PLAN: Continue with medications, RTC prn/ 1 year. documented in this encounter Plan of Treatment Not on filedocumented as of this encounter Procedures Procedure Name Priority Date/Time Associated Diagnosis Comme nts BLADDER SCANNER Routine 01/01/2016 OAB (overactive bladder) Results for this procedure are i n the results section . documented in this encounter Results Bladder Scanner (01/01/2016) P athologist Signature Bladder Scan 0 mL (mL) Hina Wen MD UROLOGY ORDERABLES documented in this encounter Visit Diagnoses Diagnosis OAB (overactive bladder) Hypertonicity of bladder documented in this encounter Care Teams Real Estate Legal Secretary Relationship Specialty Start Date End Date Allison Hector APRN PCP - General 04/22/14 06/27/21 [facility] [place] [address] documented as of this encounter
--- OUTSIDE RECORDS SUMMARY | 2021-12-28 04:10 | XMS_ITS | Encounter Summary ---
:1950 Author Organization [place] [address] Care Team Providers Name Role Phone Allison Granados TRANSPORT RN Primary Care Provider [phone] Reason for Referral Diagnostic Test (Emergency) - Closed Specialty Diagnoses / Procedures Referred By Contact Refer red To Contact Diagnoses Chest pain, unspecified type Allison Granados, [facility] Non-Inv Card Lab Procedures Echocardiogram Stress (Treadmill) [place] [address] GENERAL INTERNAL Phone: [facility] [place] [address] Referral ID Status Reason Start Date Expiration Date Visits V isits Requested Authorized [id number] Closed Specialty 01/31/2016 01/30/2017 1 1 Service Requested Reason for Visit Diagnostic Test (Emergency) - Closed Specialty Diagnoses / Procedures Referred By Contact Refer red To Contact Diagnoses Chest pain, unspecified type Allison Granados, [facility] Non-Inv Card Lab Procedures Echocardiogram Stress ([place]) [place] [address] GENERAL INTERNAL Phone: [place] [place] [address] Referral ID Status Reason Start Date Expiration Date Visits V isits Requested Authorized [id number] Closed Specialty 01/31/2016 01/30/2017 1 1 Service Requested Encounter Details Date Type Department Care Team Description 02/05/2016 Hospital Encounter Non-Invasive Lorri Moran, Chest pain, Cardiology Lab [facility] [place] unspecified type [facility] GENERAL [address] [place], [place] [address] [phone] Social History Tobacco Use Types Packs/Day Years Used Date Never Smoker Smokeless Tobacco: Never Used Alcohol Use Standard Drinks/Week Comments No 0 (1 standard drink = 0.6 oz pure alcoho l) Sex Assigned at Date Recorded Not on file documented as of this encounter Medications at Time of Discharge Medication Sig Dispensed Refills Start Date End Date oxybutynin (DITROPAN-XL) Take 1 tablet by 90 [...] Procedure Name Priority Date/Time Associated Comments Diagnosis STRESS ECHOCARDIOGRAM W STAT 02/05/2016 9:22 Chest pain, R esults for this LMTD SPECTRAL DOPP, AM EDT unspecified type proc edure are in COLOR DOPP the results section. documented in this encounter Results STRESS ECHOCARDIOGRAM W LMTD SPECTRAL DOPP, COLOR DOPP (02/05/2016 9:22 AM EDT) P athologist Signature EF 65 HEARTLAB SYSTEM Specimen (Source) Anatomical Location Collection Method / Collectio n Time Received Time / Laterality Volume 02/05/2016 Narrative HEARTLAB SYSTEM - 02/05/2016 1:27 PM EDT Procedure: ?Stress Echocardiogram Patient: ?ALLEGRA ADRIANTiny Link ? (Age): 1950(65y) Med Rec#: ? [id number] ?Sex: ?F ? [place] Loc: ? [facility] ?Ht / Wt: ??152.4(cm)/55.9( Pt. Loc: ?Echo Lab ?BSA: ?1.52 Study Date: ?? 02/05/2016 ?Pt. Type: Tape: ? Referring: Lorri Moran Referring: DARLENE Reading: Onesimo Kramer ([id number]) Dining Chair Seat Cushion Trimmer: Jesica Strickland Administrator Health Care Facility: [facility] Interpreting Fellow: Jadon Griffin Diagnosis: *ICD-10-PCS Chest pain, unspecified (R0 7.9) CPT Codes: *Stress Echo (25438) *Color Doppler (63389) *Doppler LTD (16108) *ECG Interpretation (95326) Stage ? BP ?HR ? Rest ?126/78 [...] E-wave Vmax ?0.8 ?m/sec ? MV deceleration prwq983.3 ? msec ? MV A-wave Vmax ?0.8 [...] ?Normal ?Normal ? Mid-Inferoseptal ?Normal ?Normal ? [place]-Septal ? Normal ?Normal ? [place]-Anterior ? Normal ?Normal ? [place]-Lateral ?Normal ?Normal ? [place]-Inferior ? Normal ?Normal ? [place]-Tip ?Normal ?Normal ? This report has been electronically sign ed by: _ Onesimo Kramer MD ? 02/05/2016 1 3:27:00 Images reviewed [facility] Procedure Note Onesimo Kramer MD - 02/05/2016Format ting of this note might be different from the original. Procedure: Stress Echocardiogram Patient: ALLEGRA JIMENEZ(Age): [birth year]65y) Med Rec#: [id number] Sex: F Site Loc: [facility] Ht / Wt: 152.4(cm)/55.9( Pt. Loc: Echo Lab BSA: 1.52 Study Date: 02/05/2016 Pt. Type: Tape: Referring: Lorri Moran Referring: DARLENE Reading: Onesimo Kramer ([id number]) Dining Chair Seat Cushion Trimmer: Jesica Strickland Administrator [facility] Care Facility: [facility] Interpreting Fellow: Jadon Griffin Diagnosis: *ICD-10-PCS Chest pain, unspecified (R0 7.9) CPT Codes: *Stress Echo (32879) *Color Doppler (07777) *Doppler LTD (05749) *ECG Interpretation (84257) Stage BP HR Rest 126/78 64 Peak [...] MV E-wave Vmax 0.8 m/sec MV deceleration lmqu537.3 msec MV A-wave Vmax 0.8 m/sec MV [...] Normal Mid-Inferior Normal Normal Mid-Inferoseptal Normal Normal [place]-Septal Normal Normal [place]-Anterior Normal Normal [place]-Lateral Normal Normal [place]-Inferior Normal Normal [place]-Tip Normal Normal This report has been electronically sign ed by: _ Onesimo Kramer MD 02/05/2016 13:27:0 0 Images reviewed and interpretation verif ied [facility] Cardiac Ultrasound Laboratory Lorri Moran MD ECHO ORDERABLES Performing Organization Address City/State/ZIP Code Phon e Number HEARTLAB SYSTEM documented in this encounter Visit Diagnoses Diagnosis Chest pain, unspecified type documented in this encounter Care Teams Slope Runner Relationship Specialty Start Date End Date Allison Granados APRN PCP - General 04/22/14 06/27/[address] [facility] [place] [address] documented as of this encounter
--- OUTSIDE RECORDS SUMMARY | 2021-12-28 04:10 | XMS_ITS | Encounter Summary ---
:1950 Author Organization [facility] [place] [address] Care Team Providers Name Role Phone Allison Granados APRN Primary Care Provider [phone] Encounter Details Date Type Department Care Team Description 02/01/2016 [facility]phone [facility] [address] [phone] Social History Tobacco Use Types Packs/Day Years Used Date Never Smoker Smokeless Tobacco: Never Used Alcohol Use Standard Drinks/Week Comments No 0 (1 standard drink = 0.6 oz pure alcoho l) Sex Assigned at Date Recorded Not on file documented as of this encounter Miscellaneous Notes Telephone Encounter - Lida Carney - 02/01/2016 11:07 AM EDT Patient returning phone call. Please call back. Telephone Encounter - Corin Harris CMA - 02/01/2016 10:57 AM EDT Left message for patient to call the [facility] at [phone]. Attempted to relay normal lab results. Telephone Encounter - Corin Harris CMA - 02/01/2016 10:56 AM EDT ----- Message from Allison Granados APRN sent at 02/01/2016 7:42 AM EDT ----- Labs normal. Sent to [place] to notify patient. documented in this encounter Plan of Treatment Not on filedocumented as of this encounter Visit Diagnoses Not on filedocumented in this encounter Care Teams Under Ground Miner Relationship Specialty Start Date End Date Allison Granados APRN PCP - General 04/22/14 06/27/[address] [facility] [address] [place] [place] [address] documented as of this encounter
--- OUTSIDE RECORDS SUMMARY | 2021-12-28 04:10 | XMS_ITS | Encounter Summary ---
:1950 Author Organization [facility] [place] [address] Care Team Providers Name Role Phone Allison Granados APRN Primary Care Provider [phone] Reason for Visit Reason Comments Medication Refill Encounter Details Date Type Department Care Team Description 11/09/2015 Refill Internal Medicine at [place] Allison Murphy, SOILA [facility] [place] [address] RD [phone] [place], [place] [address] (Wo rk) Social History Tobacco [...] on filedocumented in this encounter Care Teams Caustic Room Attendant Relationship Specialty Start Date End Date Allison Granados APRN PCP - General 04/22/14 06/27/21 [facility] [place] [address] documented as of this encounter
--- OUTSIDE RECORDS SUMMARY | 2021-12-28 04:10 | XMS_ITS | Encounter Summary ---
:1950 Author Organization [facility] [place] [address] Care Team Providers Name Role Phone Allison Granados APRN Primary Care Provider [phone] Encounter Details Date Type Department Care Team Description 05/28/2016 [facility] [address] [place] [address] Social History Tobacco Use Types Packs/Day Years Used Date Never Smoker Smokeless Tobacco: Never Used Alcohol Use Standard Drinks/Week Comments No 0 (1 standard drink = 0.6 oz pure alcoho l) Sex Assigned at Date Recorded Not on file documented as of this encounter Miscellaneous Notes Telephone Encounter - Corin Mclean RN - 05/28/2016 2:18 PM EST ED note from [facility] received. Patient seen by PCP after that and results reviewed. documented in this encounter Plan of Treatment Not on filedocumented as of this encounter Visit Diagnoses Not on filedocumented in this encounter Care Teams Melter Assistant Relationship Specialty Start Date End Date Allison Granados APRN PCP - General 04/22/14 06/27/[address] [facility] [address] [place] [address] documented as of this encounter
--- OUTSIDE RECORDS SUMMARY | 2021-12-28 04:10 | XMS_ITS | Encounter Summary ---
:1950 Author Organization [place] [address] Care Team Providers Name Role Phone Roberta Allison Rain APRN Primary Care Provider [phone] Encounter Details Date Type Department Care Team Description 12/25/2015 Hospital Encounter Gastroenterology at [facility] [place] [address] [place] [address] [facility] [place], [place] [address] Social History Tobacco Use Types [...] documented in this encounter Discharge Instructions Discharge InstructionsJamee Silva RN - 12/25/2015 7:57 AM EDT UPPER [...] better as expected. Friday-Friday Same Day Endo [phone] Otherwise contact [phone] and ask to speak to the reimbursement representative content production specialist Follow-up care is a camacho part of [...] UPPER GI ENDOSCOPY (12/25/2015 7:25 AM EDT) [facility] gist Method Time Signature UPPER GI [facility] ENDOSCOPY Endoscopy Patient Name: Elida Montez ? Procedure Date: 12/25/2015 7:25 AM ? Date of : 1950 ? Age: 65 ? Order #: [id number] ? Procedure: ? Upper GI endoscopy Indications: ? Abdominal pain Providers: ? Jeff Schneider MD, Janki Crews ? JENI Wayne, Juan Leoanrd MD: ?Allison Granados Medicines: ? Midazolam 3 [...] Volume Laterality 12/25/2015 7:25 AM EDT Allison Granados APRN GENERAL SURGICAL ORDERABLES Performing Organization Address City/State/ZIP Code Phon e Number [place] documented in this encounter Visit Diagnoses Not on filedocumented in this encounter Active and Recently Administered Medications Times are shown in EDT. PRN Medication Order 12/23/2015 12/24/2015 12/25/2015 fentaNYL 50 mcg/mL multi-dose injection (CANCELED) 0742 (Given - Provider: Janki Wayne RN)0745 (Given - Provider: Janki Wayne, EJNI)0748 (Given - Provider: Janki Wayne, RN) ONCE PRN, Starting 12/25/15 at 0742, Until 12/25/15 at 1023, Intra- Operative (Intra-Procedure), Routine midazolam (PF) (VERSED) 1 mg/mL multi-dose injection (CANCELED) 0742 (Given - Provider: Janki Wayne, JENI)0745 (Given - Provider: Janki Wayne, JENI)0748 (Given - Provider: Janki Wayne, RN) ONCE PRN, Starting 12/25/15 at 0742, Until 12/25/15 at 1023, Intra- Operative (Intra-Procedure), Routine documented in this encounter Care Teams Manager Technical Relationship Specialty Start Date End Date Allison Granados APRN PCP - General 04/22/14 06/27/[address] [facility] [address] [place] [address] documented as of this encounter
--- OUTSIDE RECORDS SUMMARY | 2021-12-28 04:10 | XMS_ITS | Encounter Summary ---
:1950 Author Organization [facility] [place] [address] Care Team Providers Name Role Phone Allison Hector APRN Primary Care Provider [phone] Reason for Visit Reason Onset Date Comments Medication Refill 11/09/2015 Encounter Details Date Type Department Care Team Description 11/09/2015 Refill Internal Medicine at [place] Allison Murphy APRN [facility] DR Gutierrez [facility] [place] [address] RD [phone] [place] [address] (Wo rk) Social History Tobacco Use Types Packs/Day Years Used Date Never Smoker Smokeless Tobacco: Never Used Alcohol Use Standard Drinks/Week Comments No 0 (1 standard drink = 0.6 oz pure alcoho l) Sex Assigned at Date Recorded Not on file documented as of this encounter Miscellaneous Notes Telephone Encounter - Corin Mclean RN - 11/09/2015 10:47 AM EDT From: Elida Montez To: Allison Hector APRN Sent: 11/09/2015 9:11 AM EDT Subject: Medication Renewal Request Original authorizing provider: SOILA JOSHI Nikolay Tc would like a refill of the following medications: Budesonide-Formoterol 160-4.5 mcg/actuation HFA Aerosol Inhaler [ALLISON HECTOR APRN] Preferred pharmacy: [phone] Comment: documented in this encounter Plan of Treatment Not on filedocumented as of this encounter Visit Diagnoses Not on filedocumented in this encounter Care Teams Housing Assistant Property Manager Relationship Specialty Start Date End Date Allison Hector APRN PCP - General 04/22/14 06/27/[address] [facility] [place] [address] documented as of this encounter
--- OUTSIDE RECORDS SUMMARY | 2021-12-28 04:10 | XMS_ITS | Encounter Summary ---
:1950 Author Organization [facility] [place] [address] Care Team Providers Name Role Phone Allison Granados APRN Primary Care Provider Encounter Details Date Type Department Care Team Description 07/24/2016 Telephone Obstetrics and Gynecology at [facility] [place] [address] OBSTETRICS & GYNECOLOGY [phone] [place], [place] [address] (Wo rk) Social History Tobacco Use Types Packs/Day Years Used Date Never Smoker Smokeless Tobacco: Never Used Alcohol Use Standard Drinks/Week Comments No 0 (1 standard drink = 0.6 oz pure alcoho l) Sex Assigned at Date Recorded Not on file documented as of this encounter Miscellaneous Notes Telephone Encounter - Marcella Davis CN - 07/24/2016 4:16 PM EST Department of trainmaster - Phone Note Elida Montez is a 65 y.o. year old woman who I saw on 07/19/16 for vulvar pain, was found to have area of shallow ulceration or erosion on lower aspect of inner R labia. I saw her with Dr Wen. A biopsy was done, and I called her today to discuss results. DIAGNOSIS Vulvar lesion, right inner labium, biopsy: Epidermal acanthosis and hyperkeratosis with focus??of ulceration and inflammation, cannot exclude d-STEFF (see Discussion). DISCUSSION The sections show epidermal acanthosis associated with hyperkeratosis and a focus of ulceration withsurface fibrinopurulent exudate and acute and chronic inflammation. There is basal cell atypia associated with P53 basal cell nuclear immunoreactivity that is near contiguous. The possibility of d-STEFF (STEFF simplex) is not excluded. The PAS/fungal stain is negative. Early changes of lichen sclerosus are not excluded. I discussed biopsy results with Dr Wen who feels that d-STEFF not likely, recommends clobetasol 0.05% ointment scant amt daily to affected area until reevaluation in 6-8 weeks. Discussed this plan with Elida who agrees. Discussed what clobetasol is, how it is used, discussed how to use scant amt daily. Prescription sent to her pharmacy. Will have psychiatric secretary contact her to set up follow up appt on day when Dr Wen is available. RV/call prn questions, concerns, problems. Current Outpatient Prescriptions on File Prior to Visit Medication Sig Dispense Refill ??? oxybutynin (DITROPAN-XL) 5 mg Tablet Extended Rel 24 hr Take 1 tablet by mouth daily. 90 tablet 3 ??? levothyroxine (SYNTHROID) 50 mcg Tablet Take 1 tablet by mouth daily. (Patient not taking: Reported on 07/19/2016) 30 tablet 12 ??? esomeprazole (NEXIUM) 40 mg Capsule, Delayed [...] 30 g 3 No current facility-administered medications on file prior to visit. Allergies Allergen Reactions ??? Codeine Nausea And Vomiting documented in this encounter Plan of Treatment Not on filedocumented as of this encounter Visit Diagnoses Not on filedocumented in this encounter Care Teams Environmental Monitoring Specialist Relationship Specialty Start Date End Date Allison Granados APRN PCP - General 04/22/14 06/27/21 [facility] [place] [address] documented as of this encounter
--- OUTSIDE RECORDS SUMMARY | 2021-12-28 04:10 | XMS_ITS | Encounter Summary ---
:1950 Author Organization [facility] [place] [address] Care Team Providers Name Role Phone Allison Granados APRN Primary Care Provider [phone] Encounter Details Date Type Department Care Team Description 11/27/2015 Telephone Internal Medicine at [place] Allison Murphy APRN [facility] DR Gutierrez [facility] [place] [address] [place] [address] [phone] (Wo rk) Social History Tobacco Use Types Packs/Day Years Used Date Never Smoker Smokeless Tobacco: Never Used Alcohol Use Standard Drinks/Week Comments No 0 (1 standard drink = 0.6 oz pure alcoho l) Sex Assigned at Date Recorded Not on file documented as of this encounter Miscellaneous Notes Telephone Encounter - Allison Granados APRN - 11/27/2015 2:37 PM EDT Called patient, abdominal pain is better, but labs were elevated. Would like her to come back to have labs rechecked to make sure that they are back to normal. documented in this encounter Plan of Treatment Not on filedocumented as of this encounter Results (ABNORMAL) Comprehensive metabolic panel (non-fasting) (11/28/2015 7:43 AM EDT) athologist Signature Glucose Lvl 91 65 - 199 [facility] mg/dL [facility] Comment: Diabetes: >=200 mg/dL plus symp toms BUN 13 8 - 18 mg/dL [facility] Creatinine 0.69 (L) 0.70 - 1.20 mg/dL [facility] Comment: Please note that the pediatric reference intervals supplied above were not validated at [facility]. Results from pediatri c patients should be interpreted in conjunction to the patient's age, height and muscle mass. Sodium 144 135 - 145 mmol/L [facility] Potassium 4.3 3.5 - 5.0 mmol/L [facility] Comment: Please note: ??Patients with WBC >100,00 0 may have falsely elevated Potassium levels. ??For accurate Potassium quantif ication in these patients send serum separator tube (gold top) for subsequent determinations. ??Contact the Clinical Chemistry Laboratory if there are any qu estions. Chloride 106 98 - 107 mmol/L [facility] CO2 22 22 - 31 mmol/L [facility] Anion Gap 16 (H) 5 - 15 mmol/L [facility] Calcium 9.3 8.5 - 10.5 mg/dL [facility] Total Protein 6.4 6.1 - 8.0 gm/dL [facility] Albumin 4.2 3.2 - 5.2 gm/dL [facility] AST 31 (H) 0 - 30 unit/L [facility] ALT 43 (H) 0 - 30 unit/L [facility] Alk Phos 74 40 - 104 unit/L [facility] Total Bilirubin 0.5 0.2 - 1.3 mg/dL [facility] Bili, Direct 0.1 0.0 - 0.3 mg/dL [facility] Estimated GFR >60 >=60 [facility] Comment: This estimated GFR (eGFR) [...] the following links into your internet browser. [email or web address] [email or web address] Specimen Anatomical Collection Method Collection Time Receive d Time (Source) Location / / Volume Laterality Blood specimen 11/28/2015 7:43 AM 016 (specimen) EDT 12:48 PM EDT Resulting Agency Comment Spec In Lab Corin Montoya MD CHEMISTRY ORDERABLES Performing Organization Address City/State/ZIP [place] [address] documented in this encounter Visit Diagnoses Diagnosis Elevated LFTs Other abnormal blood chemistry documented in this encounter Care Teams Toilet Attendant Relationship Specialty Start Date End Date Allison Granados APRN PCP - General 04/22/14 06/27/[address] [facility] [place] [address] documented as of this encounter
--- OUTSIDE RECORDS SUMMARY | 2021-12-28 04:10 | XMS_ITS | Encounter Summary ---
:1950 Author Organization [facility] Address [facility] [address] [place] [address] Care Team Providers Name Role Phone Allison Hector COMMERCIAL STRIPPER Primary Care Provider [phone] Reason for Visit Reason Comments Chest Pain Comes and goes, not having c hest pain right now. Right hip injection. Encounter Details Date Type Department Care Team Description 04/04/2016 Office Visit Internal Medicine Allison Hector anteric bursitis of right hip (Primary Dx); at [facility] WSOILA Need for prophylactic vaccination and in oculation against influenza; [address] [facility] Gastroesophage al reflux disease without esophagitis [facility] [place] [address] GENERAL INTERNAL [phone] [place], [place] [address] Social History Tobacco Use Types Packs/Day Years Used Date Never Smoker Smokeless Tobacco: Never Used Alcohol Use Standard Drinks/Week Comments No 0 (1 standard drink = 0.6 oz pure alcoho l) Sex Assigned at Date Recorded Not on file documented as of this encounter Last Filed Vital Signs Vital Sign Reading Time Taken Comments Blood Pressure 124/67 04/04/2016 8:17 AM EDT Pulse 67 04/04/2016 8:17 AM EDT Temperature 36.8 ??C (98.2 ??F) 04/04/2016 8:17 AM EDT Respiratory Rate 14 04/04/2016 8:17 AM EDT Oxygen Saturation 100% 04/04/2016 8:17 AM EDT Inhaled Oxygen Concentration - - Weight 55.1 kg (121 lb 6.4 oz) 04/04/2016 8:17 AM EDT Height - - Body Mass Index 23.71 01/01/2016 9:42 AM EDT documented in this encounter Progress Notes Allison Hector APRN - 04/04/2016 8:20 AM EDT Images from the original note were not included. PCP: ALLISON HECTOR APRN Chief Complaint Patient presents with ??? Chest Pain Comes and goes, not having chest pain right now. Right hip injection. SUBJECTIVE: Elida Montez is a 65 y.o. female who presents for follow up for chest pain and right lateral hip pain. She reports that about a week ago she woke up in morning with crushing chest pain. She took casey seltzer and sat up straight and it eventually went away. She has not had it since last week. Stressecho in February was fine. Lateral hip pain- continues to bother her. She has tried conservative management without improvement. She would like steroid injection for trochanteric bursitis. Review of Systems Constitutional: Negative for chills and fever. Respiratory: Negative for shortness of breath. Cardiovascular: Negative for chest pain and palpitations. Musculoskeletal: Positive for arthralgias (lateral right hip). Allergies Allergen Reactions ??? Codeine Nausea And [...] K58.9 ??? Urinary frequency R35.0 OBJECTIVE: Vitals: 04/04/16 0817 BP: 124/67 BP Location (NBP): Left arm Patient Position: Sitting BP Cuff Sizes: Adult (25-34 cm) Pulse: 67 Resp: 14 Temp: 36.8 ??C (98.2 ??F) TempSrc: Oral SpO2: 100% Weight: 55.1 kg (121 lb 6.4 oz) PHYSICAL EXAM: Physical Exam Constitutional: She is oriented to person, place, and time. She appears well- developed and well-nourished. HENT: Head: Normocephalic and atraumatic. Eyes: Conjunctivae are normal. No scleral icterus. Pulmonary/Chest: Effort normal. Musculoskeletal: Right hip: She exhibits tenderness. She exhibits normal range of motion, normal strength, no swelling and no deformity. Legs: Neurological: She is alert and oriented to person, place, and time. Skin: Skin is warm and dry. Psychiatric: She has a normal mood and affect. Her behavior is normal. Judgment and thought content normal. ASSESSMENT & PLAN: Elida was seen today for chest pain. Diagnoses and all orders for this visit: Trochanteric bursitis of right hip Discussed indications for procedure and expectations including risks and benefits. Verbal consent obtained. Skin prep with iodine swabs x3. Depomedrol 40 mg in 2 mL lidocaine was injected into right trochanteric bursa using 25 gauge 1 1/2 inch needle. The patient tolerated the procedure well. Insertion site was dressed with bandaid. Post-procedure expectations, wound care and activity restrictions were reviewed. Need for prophylactic vaccination and inoculation against influenza - FLU VACCINE, HIGH DOSE SPLIT PRESERVATIVE FREE IM Gastroesophageal reflux disease without esophagitis Other orders - methylPREDNISolone acetate (depo-MEDROL) injection 40 mg; Inject 1 mL into the muscle once. Depo-medrol: Lot # [id number] Exp: 12/2016 documented in this encounter Plan of Treatment Not on filedocumented as of this encounter Visit Diagnoses Diagnosis Trochanteric bursitis of right hip - Diana essie Enthesopathy of hip region Need for prophylactic vaccination and in oculation against influenza Gastroesophageal reflux disease without esophagitis Esophageal reflux documented in this encounter Administered Medications Inactive Administered Medications - up to 3 most recent administrations Medication Order MAR Action Action Date Dose Rate Site methylPREDNISolone acetate Given 04/04/2016 8:59 AM EDT 40 mg (depo-MEDROL) injection 40 mg 40 mg, Intramuscular, ONCE, 1 dose, On Shannan 04/04/16 at 0915, Routine documented in this encounter Care Teams Manager Sustainability Relationship Specialty Start Date End Date Allison Hector APRN PCP - General 04/22/14 06/27/[address] [facility] DR ROD INTERNAL [facility] [place] [id number] documented as of this encounter
--- OUTSIDE RECORDS SUMMARY | 2021-12-28 04:10 | XMS_ITS | Encounter Summary ---
:1950 Author Organization [facility] [address] Care Team Providers Name Role Phone Allison Hector APRN Primary Care Provider Reason for Referral Consultation (Routine) - Closed Specialty Diagnoses / Procedures Referred By Contact Refer red To Contact Obstetrics and Diagnoses Urinary incontinence, unspecified type Allison Hector, [facility] Clinical Informaticist 5l Gynecology CHARGE COORDINATOR Formerly [facility] [address] [place] GENERAL INTERNAL [id number] [place] [address] Referral ID Status Reason Start Date Expiration Date Visits V isits Requested Authorized [id number] Closed Consult, 08/17/2015 08/16/2016 1 1 Test & Treat Reason for Visit Reason Comments Cough cough comes and goes; pain i n right side; arthritis; bladder leakage. Encounter Details Date Type Department Care Team Description 08/17/2015 Office Visit Internal Medicine at Allison Hector inary incontinence, unspecified type (Primary Dx); Renny Rain APRN Other chest pain [address] [address] GENERAL INTERNAL [phone] [facility] [place] [address] (Wo rk) Social History Tobacco Use Types Packs/Day Years Used Date Never Smoker Smokeless Tobacco: Never Used Alcohol Use Standard Drinks/Week Comments No 0 (1 standard drink = 0.6 oz pure alcoho l) Sex Assigned at Date Recorded Not on file documented as of this encounter Last Filed Vital Signs Vital Sign Reading Time Taken Comments Blood Pressure 116/66 08/17/2015 2:23 PM EST right arm Pulse 73 08/17/2015 2:23 PM EST Temperature 36.9 ??C (98.4 ??F) 08/17/2015 2:23 PM EST Respiratory Rate 14 08/17/2015 2:23 PM EST Oxygen Saturation 98% 08/17/2015 2:23 PM EST Inhaled Oxygen Concentration - - Weight 58.7 kg (129 lb 6.4 oz) 08/17/2015 2:23 PM EST Height 154.3 cm (5' 0.75) 08/17/2015 2:23 PM EST Body Mass Index 24.65 08/17/2015 2:23 PM EST documented in this encounter Patient Instructions Patient InstructionsLacaAllison mckenna APRN - 08/17/2015 3:23 PM EST Chest wall pain- most likely muscle strain, recommended that she try aleve twice daily for the pain. documented in this encounter Progress Notes Allison Hector APRN - 08/17/2015 2:46 PM EST PCP: ALLISON HECTOR APRN Chief Complaint Patient presents with ??? Cough cough comes and goes; pain in right side; arthritis; bladder leakage. SUBJECTIVE: Elida Montez is a 64 y.o. female who presents for multiple concerns. She does not feel well today. She reports that her side/abdominal pain is worse recently. She said that it will get better for 2-3 days and then worse again. - not better or worse with eating. No known trauma. She has had unilateral right Side pain has gotten worse for the last couple of weeks. She has also developed some urinary incontinence. She reports that she will have to go to the bathroom frequently. No dysuria. She reports leakage with coughing/sneezing or just taking her dog for a walk. She has arthritis that was getting worse recently. She reports that it is worse recently. She has itin her fingers, arms and shoulders. Review of Systems Constitutional: Positive for fatigue. Negative for fever and chills. Respiratory: Positive for cough and shortness of breath. Gastrointestinal: Positive for abdominal pain. Neurological: Positive for light-headedness. Allergies Allergen Reactions ??? Codeine Nausea [...] Low ferritin level R79.0 OBJECTIVE: Filed Vitals: 08/17/15 1423 BP: 116/66 Pulse: 73 Temp: 36.9 ??C (98.4 ??F) TempSrc: Oral Resp: 14 Height: 154.3 cm (5' 0.75) Weight: 58.695 kg (129 lb 6.4 oz) SpO2: 98% PHYSICAL EXAM: Physical Exam Constitutional: She appears well-developed and well-nourished. HENT: Head: Normocephalic and atraumatic. Mouth/Throat: Oropharynx is clear and moist. Eyes: Conjunctivae are normal. Cardiovascular: Normal rate, regular rhythm and normal heart sounds. Pulmonary/Chest: Effort normal and breath sounds normal. She exhibits tenderness (Right anterior/lateral distal rib cage. Tender to palpation). Abdominal: Soft. Bowel sounds are normal. She [...] Diagnoses and all orders for this visit: Urinary incontinence, unspecified type Orders: - POCT urine dipstick - Referral to Urogynecology, some stress incontinence and concern for OAB - urine dip negative. Other chest pain Orders: - XR Chest Routine PA & Lateral; Future - will have done at outside hospital for ongoing chest discomfort - she has had RUQ ultrasound in past and labs; pain is more in lower chest wall to palpation - likely muscle strain documented in this encounter Plan of Treatment Scheduled Referrals Name Type Priority Associated Order Schedule Diagnoses Referral to Outpatient Referral Routine Urinary Ordered: Urogynecology Incontinence, 08/17/2015 Unspecified Type documented as of this encounter Procedures Procedure Name Priority Date/Time Associated Diagnosis Comme nts POCT URINE DIPSTICK Routine 08/17/2015 3:10 PM Urinary Re sults for this EST incontinence, procedure are in unspecified type the results section. documented in this encounter Results (ABNORMAL) POCT urine dipstick (08/17/2015 3:10 PM EST) P athologist Signature POC Sp [place] 1.015 1.002 - 1.030 POC pH, UA 6 5.0 - 8.5 POC Leuk, UA neg [...] Location / / Volume Laterality Urine specimen 08/17/2015 3:10 PM (specimen) EST Lucio Montes De Oca MD POINT OF CARE TEST ORDERABLE S documented in this encounter Visit Diagnoses Diagnosis Urinary incontinence, unspecified type - Primary Other chest pain documented in this encounter Care Teams Filter Tank Tender Helper Head Relationship Specialty Start Date End Date Allison Hector APRN PCP - General 04/22/14 06/27/[address] [facility] [address] [place] [address] documented as of this encounter
--- OUTSIDE RECORDS SUMMARY | 2021-12-28 04:10 | XMS_ITS | Encounter Summary ---
:1950 Author Organization [facility] [place] [address] Care Team Providers Name Role Phone Allison Hector APRN Primary Care Provider [phone] Reason for Visit Reason Onset Date Comments Medication Refill 04/27/2016 Encounter Details Date Type Department Care Team Description 04/29/2016 Refill Internal Medicine at [facility] Perri Alba RN [address] [place] [address] [id number] Social History Tobacco Use Types Packs/Day Years Used Date Never Smoker Smokeless Tobacco: Never Used Alcohol Use Standard Drinks/Week Comments No 0 (1 standard drink = 0.6 oz pure alcoho l) Sex Assigned at Date Recorded Not on file documented as of this encounter Miscellaneous Notes Telephone Encounter - Perri Alba RN - 04/29/2016 10:16 AM EDT From: Elida M Tc To: Allison Hector APRN Sent: 04/27/2016 8:42 AM EDT Subject: Medication Renewal Request Original authorizing provider: ALLISON HECTOR APRN Elida Montez would like a refill of the following medications: ferrous sulfate 325 mg (65 mg iron) Tablet, Delayed Release (E.C.) [ALLISON HECTOR APRN] Preferred pharmacy: [id number] - [place], [place] - [address] [place] [address] Comment: documented in this encounter Plan of Treatment Not on filedocumented as of this encounter Visit Diagnoses Not on filedocumented in this encounter Care Teams Chief Concierge Relationship Specialty Start Date End Date Allison Hector APRN PCP - General 04/22/14 06/27/[address] [facility] [place] [address] documented as of this encounter
--- OUTSIDE RECORDS SUMMARY | 2021-12-28 04:10 | XMS_ITS | Encounter Summary ---
:1950 Author Organization [facility] [place] [address] Care Team Providers Name Role Phone Allison Granados APRN Primary Care Provider [phone] Reason for Visit Reason Onset Date Comments Results 11/30/2015 Encounter Details Date Type Department Care Team Description 11/30/2015 Telephone Internal Medicine at [facility] Perri Alba RN Results [address] [place], [place] [id number] Social History Tobacco Use Types Packs/Day Years Used Date Never Smoker Smokeless Tobacco: Never Used Alcohol Use Standard Drinks/Week Comments No 0 (1 standard drink = 0.6 oz pure alcoho l) Sex Assigned at Date Recorded Not on file documented as of this encounter Miscellaneous Notes Telephone Encounter - Corin Mclean RN - 11/30/2015 10:08 AM EDT Message from Allison: Please call patient and tell her that her labs are almost completely back to normal. I would recommend f/u labs at her next visit with me in 3-6 months. (if she asks) She should still have EGD testing done that was previously scheduled. Informed patient of above message. Project Coordinator Rn will call for f/u appt. Telephone Encounter - Claudia Martinez - 11/30/2015 9:40 AM EDT Patient returning call to nurse. Attempted nurse, no answer. Please call patient back at [phone] Telephone Encounter - Perri Alba RN - 11/30/2015 9:03 AM EDT Please call patient and tell her that her labs are almost completely back to normal. I would recommend f/u labs at her next visit with me in 3-6 months. (if she asks) She should still have EGD testing done that was previously scheduled. ? Thanks, Leta documented in this encounter Plan of Treatment Not on filedocumented as of this encounter Visit Diagnoses Not on filedocumented in this encounter Care Teams Drafting Technician Relationship Specialty Start Date End Date Allison Granados APRN PCP - General 04/22/14 06/27/[address] [facility] [place] [address] documented as of this encounter
--- OUTSIDE RECORDS SUMMARY | 2021-12-28 04:10 | XMS_ITS | Encounter Summary ---
:1950 Author Organization [facility] [place] [address] Care Team Providers Name Role Phone Allison Granados APRN Primary Care Provider [phone] Encounter Details Date Type Department Care Team Description 11/28/2015 Laboratory Appointment Internal Medicine at [place] [address] [place] [address] Social History Tobacco Use Types [...] Procedure Name Priority Date/Time Associated Comments Diagnosis COMPREHENSIVE Routine 11/28/2015 7:43 AM Elevated LFTs Results for this METABOLIC PANEL EDT procedure ar e in (NON-FASTING) the results section. documented in this encounter Results (ABNORMAL) Comprehensive metabolic panel (non-fasting) (11/28/2015 7:43 AM EDT) P athologist Signature Glucose Lvl 91 65 - 199 [facility] mg/dL [facility] Comment: Diabetes: >=200 mg/dL plus symp toms BUN 13 8 - 18 mg/dL [facility] Creatinine 0.69 (L) 0.70 - 1.20 mg/dL [facility] Comment: Please note that the pediatric reference intervals supplied above were not validated at [facility]. Results from pediatri c patients should be interpreted in conjunction to the patient's age, height and muscle mass. Sodium 144 135 - 145 mmol/L [facility] Potassium 4.3 3.5 - 5.0 mmol/L [facility] Comment: Please note: ??Patients with WBC >100,00 0 may have falsely elevated Potassium levels. ??For accurate Potassium quantif ication in these patients send serum separator tube (gold top) for subsequent determinations. ??Contact the Clinical Chemistry Laboratory if there are any qu estions. Chloride 106 98 - 107 mmol/L [facility] CO2 22 22 - 31 mmol/L [facility] Anion Gap 16 (H) 5 - 15 mmol/L [facility] Calcium 9.3 8.5 - 10.5 mg/dL [facility] Total Protein 6.4 6.1 - 8.0 gm/dL [facility] Albumin 4.2 3.2 - 5.2 gm/dL [facility] AST 31 (H) 0 - 30 unit/L [facility] ALT 43 (H) 0 - 30 unit/L [facility] Alk Phos 74 40 - 104 unit/L [facility] Total Bilirubin 0.5 0.2 - 1.3 mg/dL [facility] Bili, Direct 0.1 0.0 - 0.3 mg/dL [facility] Estimated GFR >60 >=60 [facility] [...] the following links into your internet browser. http://[employer]DHnkdep http://[employer]DHMCnkf Specimen Anatomical Collection Method Collection Time Receive d Time (Source) Location / / Volume Laterality Blood specimen 11/28/2015 7:43 AM 016 (specimen) EDT 12:48 PM EDT Resulting Agency Comment Spec In Lab Corin Montoya MD CHEMISTRY ORDERABLES Performing Organization Address City/State/[place] [address] documented in this encounter Visit Diagnoses Diagnosis Elevated LFTs Other abnormal blood chemistry documented in this encounter Care Teams Collar Trimmer Relationship Specialty Start Date End Date Allison Granados APRN PCP - General 04/22/14 06/27/[address] [facility] [place] [address] documented as of this encounter
--- OUTSIDE RECORDS SUMMARY | 2021-12-28 04:10 | XMS_ITS | Encounter Summary ---
:1950 Author Organization [facility] [place] [address] Care Team Providers Name Role Phone Allison Hector POWERTRAIN CALIBRATION ENGINEER Primary Care Provider [phone] Reason for Visit Reason Comments Abnormal Labs Encounter Details Date Type Department Care Team Description 02/28/2016 Office Visit Internal Medicine at [place] RobertaCarl shannon, [address] POWERTRAIN CALIBRATION ENGINEER [address] [address] [facility] [address] [phone] [place], [place] [address] (Wo rk) Social History Tobacco Use Types Packs/Day Years Used Date Never Smoker Smokeless Tobacco: Never Used Alcohol Use Standard Drinks/Week Comments No 0 (1 standard drink = 0.6 oz pure alcoho l) Sex Assigned at Date Recorded Not on file documented as of this encounter Last Filed Vital Signs Vital Sign Reading Time Taken Comments Blood Pressure 108/60 02/28/2016 10:44 AM EDT Pulse 58 02/28/2016 10:44 AM EDT Temperature 36.7 ??C (98.1 ??F) 02/28/2016 10:44 AM EDT Respiratory Rate 12 02/28/2016 10:44 AM EDT Oxygen Saturation 99% 02/28/2016 10:44 AM EDT Inhaled Oxygen Concentration - - Weight 55.3 kg (122 lb) 02/28/2016 10:44 AM EDT Height - - Body Mass Index 23.83 01/01/2016 9:42 AM EDT documented in this encounter Patient Instructions Patient InstructionsPayalAllison jackson, SOILA - 02/28/2016 10:57 AM EDT Images from the original note were not included. [facility] Trochanteric Bursitis: Exercises Your Care Instructions Here [...] 4. Repeat 2 to 4 times. Double [id number] 1. Lie on your back with your [...] more? Visit our health information library at [email or web address] You can also view health information on [employer], your personal patient account. Log in or sign up today. Enter N503 in the search box to learn more about Trochanteric Bursitis: Exercises. ?? [id number] [employer]. Care instructions adapted under license by [facility]. This care instruction is for use with your licensed healthcare professional. If you have questionsabout a medical condition or this instruction, always ask your healthcare professional. [employer] disclaims any warranty or liability for your use of this information. Content Version: [id number]; Current as of: December 08, 2013 documented in this encounter Progress Notes Allison Hector APRN - 02/28/2016 10:40 AM EDT Images from the original note were not included. PCP: ALLISON HECTOR APRN Chief Complaint Patient presents with ??? Abnormal Labs SUBJECTIVE: Elida Montez is a 65 y.o. female who presents for follow up on abnormal labs (ALT/AST). She reports that she is more tired than usual, but also reports that her allergies have been acting up lately and are bothering her. - she has some lateral right hip pain. Hurts with certain movements. Review of Systems Constitutional: Positive for fatigue. Negative for chills and fever. Eyes: Positive for itching. Respiratory: Negative for shortness of breath. Allergic/Immunologic: Positive for environmental allergies. Allergies Allergen Reactions ??? Codeine Nausea And [...] syndrome) K58.9 ??? Urinary frequency R35.0 OBJECTIVE: There were no vitals filed for this visit. PHYSICAL EXAM: Physical Exam Constitutional: She is oriented to person, place, and time. She appears well- developed and well-nourished. No distress. HENT: Head: Normocephalic and atraumatic. Eyes: EOM are normal. Cardiovascular: Normal rate, regular rhythm and normal heart sounds. Pulmonary/Chest: Effort normal and breath sounds normal. Abdominal: Musculoskeletal: She exhibits tenderness (tenderness of the Right trocanteric bursa on palpation). Legs: Neurological: She is alert and oriented to person, place, and time. Skin: Skin is warm and dry. Psychiatric: She has a normal mood and affect. ASSESSMENT & PLAN: Elida was seen today for abnormal labs. Diagnoses and all orders for this visit: Elevated LFTs -abdominal pain has improved, still some RUQ tenderness. Will recheck her labs today. F/u for annualin couple of months - Comprehensive metabolic panel (non-fasting); Future - Comprehensive metabolic panel (non-fasting) - stable at this time. Trochanteric bursitis - discussed symptomatic treatment. Exercises given. documented in this encounter Plan of Treatment Not on filedocumented as of this encounter Procedures Procedure Name Priority Date/Time Associated Comments Diagnosis COMPREHENSIVE Routine 02/28/2016 11:29 Elevated LFTs Results f or this METABOLIC PANEL AM EDT procedure ar e in (NON-FASTING) the results section. documented in this encounter Results (ABNORMAL) Comprehensive metabolic panel (non-fasting) (02/28/2016 11:29 AM EDT) athologist Signature Glucose Lvl 89 65 - 199 [facility] mg/dL [facility] Comment: Diabetes: >=200 mg/dL plus symp toms BUN 16 8 - 18 mg/dL [facility] Creatinine 0.61 (L) 0.70 - 1.20 mg/dL [facility] Comment: Please note that the pediatric reference intervals supplied above were not validated at [facility]. Results from pediatri c patients should be interpreted in conjunction to the patient's age, height and muscle mass. Sodium 141 135 - 145 mmol/L [facility] [...] estions. Chloride 104 98 - 107 mmol/L [facility] CO2 24 22 - 31 mmol/L [facility] Anion Gap 13 5 - 15 mmol/L [facility] Calcium 9.1 8.5 - 10.5 mg/dL [facility] Total Protein 6.7 6.1 - 8.0 gm/dL [facility] Albumin 4.3 3.2 - 5.2 gm/dL [facility] AST 27 0 - 30 unit/L [facility] ALT 37 (H) 0 - 30 unit/L [facility] Alk Phos 69 40 - 104 unit/L [facility] Total Bilirubin 0.6 0.2 - 1.3 mg/dL [facility] Bili, Direct 0.1 0.0 - 0.3 mg/dL [facility] Estimated GFR >60 >=60 [facility] Comment: This estimated GFR [...] the following links into your internet browser. http://[employer]/DHnkdep [email or web address]/DHMCnkf Specimen Anatomical Collection Method Collection Time Receive d Time (Source) Location / / Volume Laterality Blood specimen 02/28/2016 11:29 6 6:33 (specimen) AM EDT PM EDT Resulting Agency Comment Spec In Lab Lorri Moran MD CHEMISTRY ORDERABLES Performing Organization Address City/State/[place] [address] documented in this encounter Visit Diagnoses Diagnosis Elevated LFTs Other abnormal blood chemistry documented in this encounter Care Teams C Consultant Relationship Specialty Start Date End Date Allison Hector APRN PCP - General 04/22/14 06/27/21 [facility] [address] [place] [place] [address] documented as of this encounter
--- OUTSIDE RECORDS SUMMARY | 2021-12-28 04:10 | XMS_ITS | Encounter Summary ---
:1950 Author Organization [facility] [place] [address] Care Team Providers Name Role Phone Allison Granados APRN Primary Care Provider [phone] Encounter Details Date Type Department Care Team Description 05/14/2016 [facility] [address] [place] [address] Social History Tobacco Use Types Packs/Day Years Used Date Never Smoker Smokeless Tobacco: Never Used Alcohol Use Standard Drinks/Week Comments No 0 (1 standard drink = 0.6 oz pure alcoho l) Sex Assigned at Date Recorded Not on file documented as of this encounter Miscellaneous Notes Telephone Encounter - Corin Mclean RN - 05/14/2016 10:40 AM EST TC to patient, informed of message from Allison Granados regarding the thyroid test results. Informed her that Allison does not recommend the ultrasound or the medication. She v/u and agreed. Telephone Encounter - Corin Mclean RN - 05/14/2016 10:39 AM EST ----- Message from Allison Granados APRN sent at 05/14/2016 8:35 AM EST ----- Please call patient and let her know that all her thyroid tests were normal. I do not think that she needs to start the thyroid medication at all and I think that we can cancel the ultrasound of her thyroid. We can still recheck the TSH when she has her CT done in 4 weeks, but I would not start the medication. ----- Message ----- From: Esteban, Lab In [facility] Sent: 05/13/2016 12:29 PM To: Allison Granados APRN documented in this encounter Plan of Treatment Not on filedocumented as of this encounter Visit Diagnoses Not on filedocumented in this encounter Care Teams Veneer Stock Layer Relationship Specialty Start Date End Date Allison Granados APRN PCP - General 04/22/14 06/27/[address] [facility] [address] [place] [address] documented as of this encounter
--- OUTSIDE RECORDS SUMMARY | 2021-12-28 04:10 | XMS_ITS | Encounter Summary ---
:1950 Author Organization [facility] Address [address] [place] [address] Care Team Providers Name Role Phone Allison Granados APRN Primary Care Provider [phone] Reason for Visit Reason Comments Annual Wellness Visit Results CT scan done this am Encounter Details Date Type Department Care Team Description 05/04/2015 Office Visit Internal Medicine at [facility] annual wellness visit, initial; Ferrum Ho Rain APRN Restless leg syndrome; [address] [facility] Elevated LFTs; [facility] Low magnesium levels; [place] [address] GENERAL INTERNAL Low ferritin; [phone] [facility] Needs flu shot; [place] [id number] Health care maintenance [phone] (Wo rk) Social History Tobacco Use Types Packs/Day Years Used Date Never Smoker Smokeless Tobacco: Never Used Alcohol Use Standard Drinks/Week Comments No 0 (1 standard drink = 0.6 oz pure alcoho l) Sex Assigned at Date Recorded Not on file documented as of this encounter Last Filed Vital Signs Vital Sign Reading Time Taken Comments Blood Pressure 118/74 05/04/2015 1:23 PM EDT Pulse 78 05/04/2015 1:23 PM EDT Temperature - - Respiratory Rate - - Oxygen Saturation 97% 05/04/2015 1:23 PM EDT Inhaled Oxygen Concentration - - Weight 60.8 kg (134 lb) 05/04/2015 1:23 PM EDT Height 154.3 cm (5' 0.75) 05/04/2015 1:23 PM EDT Body Mass Index 25.53 05/04/2015 1:23 PM EDT documented in this encounter Progress Notes Corin Harris CMA - 05/04/2015 2:21 PM EDT Flu vaccine screening checklist completed by:no 1) Is the person to be vaccinated sick today?:no 2) Does the person to be vaccinated have an allergy to eggs or to a component of the vaccine?no 3) Has the person to be vaccinated ever had a serious reaction to influenza vaccine in the past?no 4) Has the person to be vaccinated ever had Guillain-[place] syndrome?no Allison Roldan APRN - 05/04/2015 1:33 PM EDT Patient seen for Annual Wellness visit. Self assessment of Health Status: Doing well. AWV: [id number] Other providers: None at this time. Dr. Malave from [facility] for optometry. Suppliers: none IADLs/ADLs: no problems Falls/Safety: no falls or other issues Hearing difficulty: no Memory issues: no Advanced Care planning: Encouraged, will give new forms. Depression- PHQ9 Questionnaires Data (Clinic and Pt Entered): Today's value PHQ-9 QUESTIONNAIRE (AMB) 05/04/2015 PHQ - 9 Score (Clinic) 0 (No Depression) Little interest or pleasure (Clinic) Not at all Down, depressed, hopeless (Clinic) Not at all Past/Family/Social History reviewed and documented below: RLS- stable doing well with requip. Renal mass- no symptoms. CT showed stable lesions, recheck in one year. Asthma- doing well at this time. Using her inhalers. Needs refill on albuterol Osteopenia- on Boniva, tolerating it well. Low ferritin- on iron, will recheck today. GERD- taking omeprazole, well controlled. l Social History- she is working part-time 6 hours day, 4 days per week. She is doing well with that. DIET- good. EXERCISE- walking regularly. LIPID SCREENING- will order today COLONOSCOPY-is up to date PAP SMEAR-is up to date TDAP-is up to date FLU-is up to date SHINGLES- is up to date PNEUMOCOCCAL-is up to date History Smoking status ??? Never Smoker Smokeless tobacco ??? Never Used Review of Systems Constitutional: Negative for fever, chills, appetite change and fatigue. HENT: Negative for congestion, ear pain, sinus pressure and sneezing. Respiratory: Negative for cough and shortness of breath. Cardiovascular: Negative for chest pain and palpitations. Gastrointestinal: Negative for nausea, vomiting, abdominal pain, diarrhea, constipation, abdominal distention and rectal pain. Genitourinary: Negative for urgency, frequency, decreased urine volume, vaginal bleeding, vaginal discharge and difficulty urinating. Musculoskeletal: Negative for myalgias, neck pain and neck stiffness. Skin: Negative for color change and rash. Neurological: Negative for dizziness, syncope, light-headedness and headaches. Psychiatric/Behavioral: Negative for sleep disturbance (much improved) and dysphoric mood. The patient is not nervous/anxious. Patient Active Problem List Diagnosis Code ??? Radiculopathy of lumbar region M54.16 ??? Renal mass N28.89 ??? Neck pain M54.2 ??? Asthma J45.909 ??? Health care maintenance Z00.00 ??? Pain in limb (LEG) M79.609 ??? Osteopenia M85.80 ??? Restless leg syndrome G25.81 ??? Low ferritin level R79.0 Current Outpatient Prescriptions Medication Sig Dispense Refill ??? rOPINIRole (REQUIP) 0.5 mg Tablet Take 3 tablets by mouth nightly. 90 tablet 3 ??? ferrous sulfate 325 [...] Cream Apply 1 Application topically as needed. ??? albuterol (PROVENTIL HFA;VENTOLIN HFA) 90 mcg/actuation HFA Aerosol Inhaler Inhale 2 puffs into the lungs as needed. Use with spacer No current facility-administered medications for this visit. Allergies Allergen Reactions ??? Codeine Nausea And Vomiting Physical Exam: Filed Vitals: 05/04/15 1323 BP: 118/74 Pulse: 78 Height: 154.3 cm (5' 0.75) Weight: 60.782 kg (134 lb) SpO2: 97% Physical Exam Constitutional: She is oriented to [...] normal. Judgment and thought content normal. Assessment/Plan: Elida was seen today for annual wellness visit and results. Diagnoses and all orders for this visit: Medicare annual wellness visit, initial - overall healthy 64 year old female, sleeping much better and improved RLS symptoms Will recheck labs. She needs Hep B for new employment. Will check for history of antibodies to Hep B. She is unsure if vaccinated in the past. Restless leg syndrome - doing well. Will continue with requip at current dose. Elevated LFTs Orders: - Comprehensive metabolic panel (non-fasting); Future - Comprehensive metabolic panel (non-fasting) Low magnesium levels Orders: - Magnesium; Future - Magnesium Low ferritin Orders: - Iron and TIBC; Future - Ferritin - Iron and TIBC Needs flu shot Orders: - FLU VACCINE, HIGH DOSE SPLIT PRESERVATIVE FREE IM Health care maintenance Orders: - Hepatitis B Surface Antibody; Future - Hepatitis B Surface Antibody documented in this encounter Plan of Treatment Not on filedocumented as of this encounter Procedures Procedure Name Priority Date/Time Associated Comments Diagnosis IRON AND TIBC Routine 05/04/2015 4:33 PM Low ferritin Results for this EDT procedure are i n the results section. HEPATITIS B SURFACE Routine 05/04/2015 4:33 PM Health care Re sults for this ANTIBODY EDT maintenance procedure are i n the results section. MAGNESIUM Routine 05/04/2015 4:33 PM Low magnesium Results for this EDT levels procedure are i n the results section. FERRITIN Routine 05/04/2015 4:33 PM Low ferritin Results f or this EDT procedure are i n the results section. COMPREHENSIVE Routine 05/04/2015 4:33 PM Elevated LFTs Results for this METABOLIC PANEL EDT procedure ar e in (NON-FASTING) the results section. documented in this encounter Results Magnesium (05/04/2015 4:33 PM EDT) athologist Signature Magnesium 0.96 0.69 - 1.07 CERNER mmol/L [facility] Specimen Anatomical Collection Method Collection Time Receive d Time (Source) Location / / Volume Laterality Blood specimen 05/04/2015 4:33 PM 015 6:54 (specimen) EDT PM EDT Resulting Agency Comment Spec In Lab Lucio Montes De Oca MD CHEMISTRY ORDERABLES Performing Organization Address City/State/[place] [address] CERNER MILLENNIUM Ferritin (05/04/2015 4:33 PM EDT) athologist Signature Ferritin 66 30 - 400 CERNER ng/mL MILLENNIUM Comment: Pediatric reference ranges not verified at [facility], interpret with caution. Reference ranges for females greater celine n 50 years of age approach values for men, i.e., 30-400 ng/mL. Specimen Anatomical Collection Method Collection Time Receive d Time (Source) Location / / Volume Laterality Blood specimen 05/04/2015 4:33 PM 015 6:54 (specimen) EDT PM EDT Resulting Agency Comment Spec In Lab Lucio Montes De Oca MD CHEMISTRY ORDERABLES Performing Organization Address City/[facility]/ZIP Code Phon e Number [address] CERNER MILLENNIUM Iron and TIBC (05/04/2015 4:33 PM EDT) athologist Signature Iron 85 30 - 150 CERNER mcg/dL MILLENNIUM TIBC 319 250 - 450 CERNER mcg/dL MILLENNIUM Iron Saturation 27 20 - 50 % CERNER MILLENNIUM Specimen Anatomical Collection Method Collection Time Receive d Time (Source) Location / / Volume Laterality Blood specimen 05/04/2015 4:33 PM 015 6:54 (specimen) EDT PM EDT Resulting Agency Comment Spec In Lab Lucio Montes De Oca MD CHEMISTRY ORDERABLES Performing Organization Address City/[facility]/ZIP [facility] Phon e Number [address] CERNER MILLENNIUM (ABNORMAL) Comprehensive metabolic panel (non-fasting) (05/04/2015 4:33 PM EDT) athologist Signature Glucose Lvl 89 65 - 199 CERNER mg/dL MILLENNIUM Comment: Diabetes: >=200 mg/dL plus symp toms BUN 13 8 - 18 mg/dL CERNER MILLENNIUM Creatinine 0.65 (L) 0.70 - 1.20 mg/dL CERNER MILL ENNIUM Comment: Please note that the pediatric reference intervals supplied above were not validated at [facility]. Results from pediatri c patients should be interpreted in conjunction to the patient's age, height and muscle mass. Sodium 138 135 - 145 mmol/L CERNER GIAN NIUM Potassium 3.8 3.5 - 5.0 mmol/L CERNER GIAN NIUM Comment: Please note: ??Patients with WBC >100,00 0 may have falsely elevated Potassium levels. ??For accurate Potassium quantif ication in these patients send serum separator tube (gold top) for subsequent determinations. ??Contact the Clinical Chemistry Laboratory if there are any qu estions. Chloride 102 98 - 107 mmol/L CERNER MILLENN IUM CO2 22 22 - 31 mmol/L CERNER MILLENNI UM Anion Gap 14 5 - 15 mmol/L CERNER MILLENNIU M Calcium 8.9 8.5 - 10.5 mg/dL CERNER GIAN NIUM Total Protein 6.6 6.1 - 8.0 gm/dL CERNER MIL LENNIUM Albumin 4.1 3.2 - 5.2 gm/dL CERNER MILLENN IUM AST 26 0 - 30 unit/L CERNER MILLENNIU M ALT 42 (H) 0 - 30 unit/L CERNER MILLENNIU M Alk Phos 76 40 - 104 unit/L CERNER MILLENN IUM Total Bilirubin 0.5 0.2 - 1.3 mg/dL CERNER M ILLENNIUM Bili, Direct 0.1 0.0 - 0.3 mg/dL CERNER MILL ENNIUM Estimated GFR >60 >=60 CERNER MILLENNIU M Comment: This estimated GFR (eGFR) value was [...] the following links into your internet browser. [email or web address] [email or web address] Specimen Anatomical Collection Method Collection Time Receive d Time (Source) Location / / Volume Laterality Blood specimen 05/04/2015 4:33 PM 015 6:54 (specimen) EDT PM EDT Resulting Agency Comment Spec In Lab Lucio Montes De Oca MD CHEMISTRY ORDERABLES Performing Organization Address City/[facility]/ZIP Code Phon e Number [address] [facility] Hepatitis B Surface Antibody (05/04/2015 4:33 PM EDT) [facility] Method Time Signature HepB Surface Indeterminate [facility] Comment: Result rechecked. Expected Results: Vaccinated: Positive Unvaccinated: Negative Please note: A positive result for this assay is consistent with a concentration of anti-HBs antibodies >10 mIU/ml, which indicates that anti-HBs antibodies have been detected at levels consistent with protective immunity against HBV infection. Specimen Anatomical Collection Method Collection Time Receive d Time (Source) Location / / Volume Laterality Blood specimen 05/04/2015 4:33 PM 015 6:54 (specimen) EDT PM EDT Resulting Agency Comment Spec In Lab Lucio Montes De Oca MD IMMUNOLOGY ORDERABLES Performing Organization Address [facility] Phon e Number [address] [facility] documented in this encounter Visit Diagnoses Diagnosis Medicare annual wellness visit, initial Routine general medical examination at a health care facility Restless leg syndrome Restless legs syndrome (RLS) Elevated LFTs Other abnormal blood chemistry Low magnesium levels Disorders of magnesium metabolism Low ferritin Other nonspecific findings on examinatio n of blood Needs flu shot Need for prophylactic vaccination and in oculation against influenza Health care maintenance Unspecified general medical examination documented in this encounter Care Teams Talent Development Consultant Relationship Specialty Start Date End Date Allison Granados APRN PCP - General 04/22/14 06/27/[address] [facility] [address] [place] [address] documented as of this encounter
--- OUTSIDE RECORDS SUMMARY | 2021-12-28 04:10 | XMS_ITS | Encounter Summary ---
:1950 Author Organization [facility] [place] [address] Care Team Providers Name Role Phone Allison Granados [facility] Primary Care Provider [phone] Reason for Visit Reason Comments Referral Consultation (Routine) - Closed Specialty Diagnoses / Procedures Referred By Contact Refer red To Contact Endocrinology Diagnoses Multiple thyroid nodules Allison Granados, [facility] Endocrinology 3b PHONOGRAPH NEEDLE TIP [place]ER [place] [address] GENERAL INTERNAL Phone: [place] [address] Referral ID Status Reason Start Date Expiration Date Visits V isits Requested Authorized [id number] Closed Specialty 06/14/2016 06/14/2017 1 1 Service Requested Encounter Details Date Type Department Care Team Description 08/09/2016 Office Visit Endocrinology at [facility] Tova Gomez MD [facility] [place] [address] Rajendra'genaro [facility] Funmilayo Coto MD [facility] [place] [address] [place] [phone] Social History Tobacco Use Types Packs/Day Years Used Date Never Smoker Smokeless Tobacco: Never Used Alcohol Use Standard Drinks/Week Comments No 0 (1 standard drink = 0.6 oz pure alcoho l) Sex Assigned at Date Recorded Not on file documented as of this encounter Last Filed Vital Signs Vital Sign Reading Time Taken Comments Blood Pressure 134/63 08/09/2016 1:47 PM EST Pulse 62 08/09/2016 1:47 PM EST Temperature 36.5 ??C (97.7 ??F) 08/09/2016 1:47 PM EST Respiratory Rate - - Oxygen Saturation 99% 08/09/2016 1:47 PM EST Inhaled Oxygen Concentration - - Weight 53.5 kg (118 lb) 08/09/2016 1:47 PM EST Height 154.9 cm (5' 1) 08/09/2016 1:47 PM EST Body Mass Index 22.3 08/09/2016 1:47 PM EST documented in this encounter Patient Instructions Patient InstructionsFunmilayo Coto MD - 08/09/2016 2:00 PM EST Will check anti TPO level at PCP office. If they are+, you will need yearly TSH screen to monitor for low thyroid through your PCP Your nodules dont meet criteria for biopsy and may be followed with ultrasound in 1 year documented in this encounter Progress Notes Funmilayo Coto MD - 08/09/2016 2:00 PM EST Endocrine Outpatient Consult Patient seen in consultation at the request of: Reason for consult: Thyroid nodule Jagruti Dinh is a very pleasant 65 y.o. year old female Patient had been feeling tired and had TFTs and ultrasound showing multinodular goiter checked as outpatient. She was noted to have TSH of 10 in [facility] in May when admitted with chest pain. Reportedly negative work up. Follow up TSH was normal at 3 in 06/10/2016. History of H+N XRT exposure: No Family history of thyroid cancer: No Thyroid Compressive symptoms: Globus sensation: No Dysphagia: Occasional Dysphonia: No Dyspnea: No Symptoms of thyroid hormone excess / deficiency Heat intolerance: No Cold intolerance: No Diarrhea: No Constipation: Occasional Weight loss / gain: unintentional weight loss of 16 lbs over the past 1 year Anxiety: No Jitteriness: No Tremors: No Palpitations: No Difficulty concentrating: No Patient Active Problem List Diagnosis Code ??? Radiculopathy of lumbar region M54.16 ??? Renal mass N28.89 ??? Neck pain M54.2 ??? Asthma J45.909 ??? Health care maintenance Z00.00 ??? Pain in limb (LEG) M79.609 ??? Osteopenia M85.80 ??? Restless leg syndrome G25.81 ??? Low ferritin level R79.0 ??? IBS (irritable bowel syndrome) K58.9 ??? Urinary frequency R35.0 Family History negative for thyroid cancer Mom has hypothyroidism on meds Social History No smoking, alcohol or drug use Review of Systems See HPI. All other systems negative. Physical Exam Vitals: 08/09/16 1347 BP: 134/63 Pulse: 62 Temp: 36.5 ??C (97.7 ??F) GEN: A+O 3; WDWN; Comfortable; Mood and affect appropriate. EYES: DANIEL; No stare, no lid lag, no conjunctival injection NECK: Trachea midline, no neck masses; Thyroid not enlarged; Non-nodular; No cervical lymphadenopathy CHEST: Clear to auscultation; No dullness to percussion CV: Regular rate and rhythm; No murmurs rubs or gallops; no peripheral edema ABD: Soft and non-tender; No masses notes MSK: Normal gait and station; No clubbing or cyanosis of digits SKIN: Intact without lesions or rashes NEURO: CN II-XII grossly intact with normal coordination, muscle strength and tone; No tremor of outstretched hands; DTRs 2+ w/ normal relaxation phase US thyroid tissue 06/10/2016 RIGHT LOBE: Date L(cm) AP(cm) TV(cm) 06/10/16 3.5 1.7 1.8 06/10/16 1.1 0.8 ?? -------- Lesions: -------- # Date Location Description L AP TV (cm) 1 06/10/16 Mid Lobe Iso- to 0.5 0.5 0.6 hypoechoic, well circumscribed, peripheral vascularity # Date Location Description L AP TV (cm) 2 06/10/16 Upper pole Hypoechoic, 1.1 0.8 0.8 solid, non vascular, no ca++ ?? LEFT LOBE: Date L(cm) AP(cm) TV(cm) 06/10/16 3.1 1.9 1.5 ?? -------- Lesions: -------- # Date Location Description L AP TV (cm) 1 06/10/16 Mid Lobe Well- 1.4 1.0 1.5 circumscribed, solid with cystic components, peripheral vascularity 2 06/10/16 Lower Lobe Sponge like, 0.5 0.3 0.4 vascular 3 06/10/16 Lower Lobe Hypoechoic 0.5 0.3 0.6 ?? -------- ISTHMUS: -------- Measurement: 3.4 mm ?? Comment: Normal texture ?? LYMPH NODES: Multiple lymph nodes seen on the left, normal appearing, largest measuring 1.1 x 0.2 x 0.6 cm. Single node seen on right measuring 1.8 x 0.5 x 0.9 cm. ? IMPRESSION Ultrasound Dictation: Bilateral thyroid nodules as described above. FNA could be considered for the largest nodule on each side. I have personally reviewed the image(s) and the residents interpretation and agree with the findings, Isaiah Conn at 06/10/2016 10:10 AM THYROID ULTRASOUND: Indication: Thyroid nodule Date: 08/09/2016 Comparison: Real-time images of the thyroid gland were obtained during this examination. All measurements are given as AP x Transverse x Longitudinal. Right Lobe: The right lobe measures 1.5 x 1.58 x 2.94 with an echo-texture that is slightly heterogeneous. There is a solid iso-/hypo-echoic 0.5 x 0.6 x 0.5 cm nodule in the upper pole / midlobe with regularborders, no calcifications, and minimal peripheral vascularity. Left Lobe: The left lobe measures 1.6 x 1.76 x 3.1 cm with an echo-texture that is slightly heterogeneous. There is a solid spongiform left mid lobe 1 x 1.2 x 1.4 cm with regular borders, no calcifications, and minimal peripheral vascularity Isthmus: The isthmus measures 0.298 cm with an echo-texture that is heterogeneous. Lateral Neck: No abnormal masses or lymph nodes are seen in levels II- bilaterally. Images reviewed with the attending Dr. He prior to compiling this report Funmilayo Coto MD Endocrinology, Diabetes and Metabolism Fellow Results for JAGRUTI DINH ( ) as of 08/09/2016 14:39 Ref. Range 08/19/2014 09:34 05/13/2016 09:30 06/10/2016 10:01 T3, Total Latest Ref Range: 75 - 170 ng/dL 133 Free T4 Latest Ref Range: 0.93 - 1.70 ng/dL 1.07 TSH Latest Ref Range: 0.27 - 4.20 mcIU/mL 3.49 3.51 3.23 ASSESSMENT / PLAN: Thyroid Nodule Jagruti has 2 nodules- A right side solid iso-/hypo-echoic 0.5 x 0.6 x 0.5 cm Nodule and left side solid spongiform left mid lobe 1 x 1.2 x 1.4 cm. Neither meet WILLIAM biopsy critiera and will arrange f/u ultrasound in 1 year. Thyroid does look heterogeneous and patient may have underlying Hashimotos thyroiditis. She may benefit from regular TSH checks through PCP, to determine if TSH is elevating down the road and need for synthroid replacement later in life. Plan - f/u thyroid follow-up ultrasound with consideration of FNA biopsy should left sided nodule grow tolarger than 2cm. - f/u anti TPO levels during PCP visit. If positive, patient needs yearly TSH monitoring to screen for overt hypothyroidism This case was discussed with Dr He of Endocrinology. Funmilayo Coto MD Endocrine Fellow [phone] Tova He MD - 08/09/2016 2:00 PM EST I saw this patient with Dr. Coto. I reviewed the camacho portions of the history and physical exam, and reviewed pertinent lab data. I answered all patient questions. I was involved in all medical decision making and agree with this plan. TOVA HE MD [facility] Supervisorhealthcare corporate account director Section of Endocrinology [facility] documented in this encounter Plan of Treatment Not on filedocumented as of this encounter Results (ABNORMAL) Thyroid peroxidase antibody (08/13/2016 10:54 AM EST) P athologist Signature Thyroperox Ab 697 (H) <=34 IU/mL [facility] Specimen Anatomical Collection Method Collection Time Receive d Time (Source) Location / / Volume Laterality Blood specimen 08/13/2016 10:54 7 1:23 (specimen) AM EST PM EST Resulting Agency Comment Spec In Lab Tova He MD IMMUNOLOGY ORDERABLES Performing Organization Address City/State/[place] [address] documented in this encounter Visit Diagnoses Diagnosis Rajendra's thyroiditis Chronic lymphocytic thyroiditis documented in this encounter Care Teams Dump Operator Relationship Specialty Start Date End Date Allison Granados APRN PCP - General 04/22/14 06/27/[address] [facility] [place] [address] documented as of this encounter
--- OUTSIDE RECORDS SUMMARY | 2021-12-28 04:10 | XMS_ITS | Encounter Summary ---
:1950 Author Organization [facility] [place] [address] Care Team Providers Name Role Phone Allison Granados APRN Primary Care Provider [phone] Encounter Details Date Type Department Care Team Description 05/13/2016 Orders Only Internal Medicine at Allison Granados evated TSH (Primary [address], COLORIST FORMULATOR Dx) [address] [facility] [address] [place] [address] GENERAL INTERNAL [phone] [address] [place], [place] [address] (Wo rk) Social History Tobacco Use Types Packs/Day Years Used Date Never Smoker Smokeless Tobacco: Never Used Alcohol Use Standard Drinks/Week Comments No 0 (1 standard drink = 0.6 oz pure alcoho l) Sex Assigned at Date Recorded Not on file documented as of this encounter Plan of Treatment Not on filedocumented as of this encounter Visit Diagnoses Diagnosis Elevated TSH - Primary Other abnormal blood chemistry documented in this encounter Care Teams Rn Surgery Icu Relationship Specialty Start Date End Date Allison Granados APRN PCP - General 04/22/14 06/27/21 [facility] [place] [address] documented as of this encounter
--- OUTSIDE RECORDS SUMMARY | 2021-12-28 04:10 | XMS_ITS | Encounter Summary ---
:1950 Author Organization [facility] [place] [address] Care Team Providers Name Role Phone Allison Granados APRN Primary Care Provider [phone] Reason for Visit Reason Comments Medication Refill Encounter Details Date Type Department Care Team Description 02/21/2016 Refill Internal Medicine at [place] Allison Murphy, SO[facility] [place] [address] RD [phone] [place], [place] [address] (Wo rk) Social History Tobacco [...] on filedocumented in this encounter Care Teams Steam Gigger Relationship Specialty Start Date End Date Allison Granados APRN PCP - General 04/22/14 06/27/21 [facility] [place] [address] documented as of this encounter
--- OUTSIDE RECORDS SUMMARY | 2021-12-28 04:10 | XMS_ITS | Encounter Summary ---
:1950 Author Organization [facility] [place] [address] Care Team Providers Name Role Phone Allison Granados [facility] Primary Care Provider [phone] Reason for Referral Diagnostic Test (Routine) Specialty Diagnoses / Procedures Referred By Contact Refer red To Contact Radiology Diagnoses Renal mass Allison Granados [facility] Rad Ct Scan Procedures CT Abdomen wwo Contrast CT Abdomen & Pelvis wwo Contrast (Generic) [place] [address] GENERAL INTERNAL Phone: [place] [address] Referral ID Status Reason Start Date Expiration Date Visits V isits Requested Authorized [id number] Specialty 05/13/2016 05/13/2017 1 1 Service Requested Reason for Visit Diagnostic Test (Routine) Specialty Diagnoses / Procedures Referred By Contact Refer red To Contact Radiology Diagnoses Renal mass Allison Granados [facility] Rad Ct Scan Procedures CT Abdomen wwo Contrast CT Abdomen & Pelvis wwo Contrast (Generic) [place] [address] GENERAL INTERNAL Phone: [place] [address] Referral ID Status Reason Start Date Expiration Date Visits V isits Requested Authorized [id number] Specialty 05/13/2016 05/13/2017 1 1 Service Requested Encounter Details Date Type Department Care Team Description 06/10/[address] Scan at [facility] Corin Montoya, Renal mass [facility] Center MD Masters [facility] [place] [address] GENERAL INTERNAL [phone] [place], [place] [address] (Wo rk) Social History Tobacco [...] 20 Take 1 capsule by 60 capsule 10/0607/19/2016 mg Capsule, Delayed mouth 2 times [...] Diagnosis Comme nts CT ABDOMEN WWO Routine 06/10/2016 8:25 AM Renal mass Results for this CONTRAST EST procedure are i n the results section. documented in this encounter Results CT Abdomen wwo Contrast (06/10/2016 8:25 AM [...] 2014 suggestive of benign renal cysts. Corin Montoya MD IMG CT ORDERABLES documented in this encounter Visit Diagnoses Diagnosis Renal mass Unspecified disorder of kidney and urete r documented in this encounter Administered Medications Inactive Administered Medications - up to 3 most recent administrations Medication Order MAR Action Action Date Dose Rate Site iohexol (OMNIPAQUE) 350 mg/mL Given 06/10/2016 8:26 AM EST 35,00 0 mg solution 35,000 mg 35,000 mg (100 mL), Intravenous, ONCE PRN, 1 dose, Starting on 06/10/16 at 0805, Until Fri06/10/16 at 0826, Per Protocol, Warning Vesicant/Irritant Medication , Routine documented in this encounter Care Teams Capacitor Repairer Relationship Specialty Start Date End Date Allison Granados, PHYSICAL THERAPY ASSISTANT INSTRUCTOR PCP - General 04/22/14 06/27/[address] [facility] [address] [place] [address] documented as of this encounter
--- OUTSIDE RECORDS SUMMARY | 2021-12-28 04:11 | XMS_ITS | Encounter Summary ---
:1950 Author Organization [facility] [place] [address] Care Team Providers Name Role Phone Allison Granados APRN Primary Care Provider [phone] Reason for Visit Reason Comments Other Encounter Details Date Type Department Care Team Description 11/25/2014 Telephone Internal Medicine at [place] Allison Murphy APRN [facility] DR Gutierrez [facility] [place] [address] [place] [address] [phone] (Wo rk) Social History Tobacco Use Types Packs/Day Years Used Date Never Smoker Smokeless Tobacco: Never Used Alcohol Use Standard Drinks/Week Comments No 0 (1 standard drink = 0.6 oz pure alcoho l) Sex Assigned at Date Recorded Not on file documented as of this encounter Miscellaneous Notes Telephone Encounter - Allison Granados APRN - 11/25/2014 5:15 PM EDT Called patient at cell phone number to discuss results of ultrasound and labs. Patient to remain off of cymbalta. Will continue to investigate leg pain that is better with walking and ambulation and worse with sitting and lying down. documented in this encounter Plan of Treatment Not on filedocumented as of this encounter Visit Diagnoses Not on filedocumented in this encounter Care Teams Combination Welder Relationship Specialty Start Date End Date Allison Granados APRN PCP - General 04/22/14 06/27/[address] [facility] [address] [place] [address] documented as of this encounter
--- OUTSIDE RECORDS SUMMARY | 2021-12-28 04:11 | XMS_ITS | Encounter Summary ---
:1950 Author Organization [facility] [place] [address] Care Team Providers Name Role Phone Allison Granados APRN Primary Care Provider [phone] Encounter Details Date Type Department Care Team Description 08/19/2014 External Results Neurology at [facility] Reji Redding MD [facility] [place] [address] NEUROLOGY DEPT. [phone] [place], [place] [address] (Wo rk) Social History Tobacco [...] Name Priority Date/Time Associated Diagnosis Comme nts EMG SCAN Routine 08/19/2014 documented in this encounter Results Scan Doc: EMG (08/19/2014) Narrative This result has an attachment that is no t available. Reji Redding MD MEDIA MGR SCAN EXT ORDR/RSLT documented in this encounter Visit Diagnoses Not on filedocumented in this encounter Care Teams Field Hauler Relationship Specialty Start Date End Date Allison Granados APRN PCP - General 04/22/14 06/27/[address] [facility] [place] [address] documented as of this encounter
--- OUTSIDE RECORDS SUMMARY | 2021-12-28 04:11 | XMS_ITS | Encounter Summary ---
:1950 Author Organization [facility] [place] [address] Care Team Providers Name Role Phone Shireen Montoya MD Primary Care Provider Reason for Visit Reason Comments Back Pain Encounter Details Date Type Department Care Team Description 04/08/2014 Procedure visit Pain Management at [facility] iculopathy of [facility] MD August lumbar region (Primary [facility] [address] [place], [place] [phone] Social History Tobacco Use Types Packs/Day Years Used Date Never Smoker Smokeless Tobacco: Never Used Sex Assigned at Date Recorded Not on file documented as of this encounter Last Filed Vital Signs Vital Sign Reading Time Taken Comments Blood Pressure 114/73 04/08/2014 8:33 AM EDT Pulse 70 04/08/2014 8:33 AM EDT Temperature - - Respiratory Rate 16 04/08/2014 8:33 AM EDT Oxygen Saturation 98% 04/08/2014 8:33 AM EDT Inhaled Oxygen Concentration - - Weight 54.4 kg (120 lb) 04/08/2014 8:14 AM EDT Height 154.9 cm (5' 1) 04/08/2014 8:14 AM EDT Body Mass Index 22.67 04/08/2014 8:14 AM EDT documented in this encounter Patient Instructions Patient InstructionsNeva Dias RN - 04/08/2014 8:15 AM EDT Pain Management Center Discharge Instructions: You were seen by Dr. Marco Kingsley MD who performed lumbar epidural steroid injection. It is normal that the injection site will be sore for up to 48 hours. You may also experience mild stiffness in the joint near the injection site. [x] You may resume your normal activities: tomorrow. You may shower today. DO NOT tub bathe, use whirlpools, hot tubs or pool therapy for 2 days. Remove Band-Aid(s) later today/tomorrow. Do not drive until tomorrow. Use caution walking/climbing stairs as you may be unsteady on your feet. You may use your usual medications, including pain medications, as directed, unless otherwise instructed. You may use an ice pack as needed for the first 24 hours, on for 20 minutes then off for 20 minutes.Do not apply heat today. Attempt to empty your bladder 4-6 hours after your procedure. You received the following medications: Depo-Medrol 40 mg, Lidocaine and Omnipaque (contrast dye). During regular business hours, please phone the Pain Management Center at for appointments or with any questions or if the following or other troubling symptoms develop: 1) Prolonged dizziness or weakness (more than 1 day). 2) Localized swelling, redness or drainage at the injection site(s). 3) Temperature of 101 degrees that lasts for more than 4 hours. After 5 PM or on weekends, call and ask for Pain Clinic provider on-call. If you are unable to reach the Pain Management Center and have a complication, please call your Primary Care Provider or proceed to your local emergency department. Neva Dias RN Special instructions documented in this encounter Progress Notes Neva Dias RN - 04/08/2014 8:14 AM EDT Pre-Procedure Screening Questions: 1. Status: No 2. Patient states they have a hazmat cdl driver to transport after procedure? Yes 3. Patient taking antibiotics at present? No 4. NPO per Pain Management Center protocol? No 5. Patient diabetic: No 6. Patient routinely taking anticoagulants ? No Anticoagulant: Date Stopped: Current INR: Patient Vital Signs documented in Doc Flowsheets associated with this encounter. Patient Discharge Instructions were reviewed with patient and copy provided to patient. documented in this encounter Procedure Notes Marco Kingsley MD - 04/13/2014 11:45 AM EDTAssociated Order(s): EPIDURAL STEROID INJECTION Procedure(s): EPIDURAL STEROID INJECTION Pre-Procedure Diagnose(s): Radiculopathy of lumbar region EPIDURAL STEROID INJECTION Date of Service: 04/08/2014 Patient: Elida Montez Diagnosis: 1. Radiculopathy of lumbar region Today's Operative Note Elida Montez was greeted by the nurse who verified patients name and . Patient was then taken to the fluoroscopy suite. I first sat down with the patient and discussed the risks, benefits, side effects, and alternativesof this procedure including increased pain from the procedure, no pain relief, nerve damage, spinal headache. Female comprehended my conversation and accepts the risks and understands the goals of thisprocedure. All questions and concerns from the patient were addressed. There are no contraindications for today's procedure. The printed consent form was signed and witnessed. Standard time-out procedure was performed. Elida Montez was placed in the supine position with on the fluoroscopy table and automated blood pressure cuff and pulse oximeter applied. The skin entry point for entering/approaching the epidural space by a left L4-L5 and marked. Following thorough chlorhexadine preparation of the skin and draping and 1% lidocaine infiltration of the skin entry point and subcutaneous tissues, a 22 gauge Touhy needle was placed under fluoroscopic guidance and with loss of resistance technique into the epidural space. Needle tip placement and depth were aided and confirmed by fluoroscopy. There was no paresthesia or return of blood or CSF through the needle. 1 cc's of Omnipaque 240 was injected with clear epidural spread confirmed with fluoroscopy. 40 mg depomedrol With 2 cc of PFNS was injected. There was notany unusual discomfort expressed by Elida Montez. Elida Montez's vital signs were stable throughout the procedure and were as recorded in nursing records. Discharge plan: Patient will follow up as needed. Attestation: I performed this procedure myself without any assistance from a resident for a fellow. documented in this encounter Plan of Treatment Pending Results Name Type Priority Associated Diagnoses Date/Ti me XR Fluoro OR c-arm Imaging Routine 4 8:41 AM EDT storage only Scheduled Orders Name Type Priority Associated Diagnoses Order S chedule XR Fluoro OR c-arm Imaging Routine Once PRN (for Radiant storage only use) for 1 Occu rrences starting 2013 until 04/08/2014 documented as of this encounter Procedures Procedure Name Priority Date/Time Associated Diagnosis Comme nts EPIDURAL STEROID Routine 04/13/2014 11:53 Radiculopathy of Res ults for this INJECTION AM EDT lumbar region procedure are in the results section. documented in this encounter Results EPIDURAL STEROID INJECTION (04/13/2014 11:53 AM EDT) Narrative Marco Kingsley MD - 04/13/2014 11:53 AM EDT Marco Kingsley MD ? 04/13/2014 11:53 AM EPIDURAL STEROID INJECTION Date of Service: 04/08/2014 Patient: ??Elida Montez ?? Diagnosis: 1. Radiculopathy of lumbar region ?? Today's Operative Note Elida Montez was greeted by the nurse who verified patients name and . ??Patient was then taken t o the fluoroscopy suite. I first sat down with the patient and d iscussed the risks, benefits, side effects, and alternatives of this procedure including increased pain from the proced ure, no pain relief, nerve damage, spinal headache. ??Female comprehended my conversation and accepts the risks and u nderstands the goals of this procedure. All questions and concer ns from the patient were addressed. There are no contraindication s for today's procedure. The printed consent form was signed and witnessed. ??Standard time-out procedure was performed. Elida Montez was placed in the supine position with on the fluoroscopy table and automated blood pr essure cuff and pulse oximeter applied. ??The skin entry point for entering/approaching the epidural space by a left L4-L5 and torito orta. ??Following thorough chlorhexadine preparation of th e skin and draping and 1% lidocaine infiltration of the skin entry point and subcutaneous tissues, a 22 gauge Touhy needle was jennifer ben under fluoroscopic guidance and with loss of resistance erlin hnique into the epidural space. ??Needle tip placement and depth were aided and confirmed by fluoroscopy. There was no paresthesia or return of blood or CSF through the needle. 1 cc's of Omnipa que 240 was injected with clear epidural spread confirmed with flu oroscopy. 40 mg depomedrol ??With 2 cc of PFNS was injec reta. There was not any unusual discomfort expressed by Elida Montez. Elida Montez's vital signs were stabl e throughout the procedure and were as recorded in nursin g records. ?? Discharge plan: Patient will follow up a s needed. Attestation: I performed this procedure myself without any assistance from a resident for a fellow. Procedure Note Marco Kingsley MD - 04/13/2014 11:45 AM EDT EPIDURAL STEROID INJECTION Date of Service: 04/08/2014 Patient: Elida Montez Diagnosis: 1. Radiculopathy of lumbar region Today's Operative Note Elida Montez was greeted by the nurse who verified patients name and . Patient was then taken to the fluoroscopy suite. I first sat down with the patient and d iscussed the risks, benefits, side effects, and alternatives of this procedure including increased pain from the procedure, no pain relief, nerve damage, spinal headache. Female comprehended my conversation and accepts the risks and understands the goals of this procedure. All questions and concerns from the patient were addressed. There are no contraindications for today's procedure. The printed consent form was signed and witn essed. Standard time-out procedure was performed. Elida Montez was placed in the supine position with on the fluoroscopy table and automated blood pressure cuff and pulse oximeter applied. The skin entry point for entering/approaching the epidural space by a left L4-L5 and marked. Following thorough chl orhexadine preparation of the skin and draping and 1% lidocaine infiltration of the skin entry point and subcutaneous tissues, a 22 gauge Touhy needle was placed under fluoroscopic guidance and with loss of r esistance technique into the epidural space. Needle tip placement and depth were aided and confirmed by fluoroscopy. There was no paresthesia or return of blood or CSF through the needle. 1 cc's of Omnipaque 240 was injected with clear epidural spread confirmed with fluoroscopy. 40 mg depomedrol With 2 cc of PFNS was injected. There was not any unusual discomfort expressed by Elida Montez. Elida Montez's vital signs were stabl e throughout the procedure and were as recorded in nursing records. Discharge plan: Patient will follow up a s needed. Attestation: I performed this procedure myself without any assistance from a resident for a fellow. Marco Kingsley MD NEUROLOGY ORDERABLES documented in this encounter Visit Diagnoses Diagnosis Radiculopathy of lumbar region - Primary Thoracic or lumbosacral neuritis or radi culitis, unspecified documented in this encounter Administered Medications Inactive Administered Medications - up to 3 most recent administrations Medication Order MAR Action Action Date Dose Rate Site iohexol (OMNIPAQUE) injection 1 mL Given 04/08/2014 11:00 AM EDT 1 mL 1 mL, Other, ONCE, 1 dose, On Fri04/08/14 at 0000, 49 ml wasted, Routine methylPREDNISolone acetate (depo-MEDROL) Given 04/08/2014 11:00 AM EDT 40 mg injection 40 mg 40 mg, Epidural, ONCE, 1 dose, On Fri04/08/14 at 0000, Routine documented in this encounter Care Teams Manager Mass Relationship Specialty Start Date End Date Shireen Montoya MD PCP - General 05/29/10 04/21/14 [address] [place] [address] documented as of this encounter
--- OUTSIDE RECORDS SUMMARY | 2021-12-28 04:11 | XMS_ITS | Encounter Summary ---
:1950 Author Organization [facility] [place] [address] Care Team Providers Name Role Phone Allison Granados APRN Primary Care Provider [phone] Reason for Visit Reason Onset Date Comments Medication Problem 05/04/2014 Encounter Details Date Type Department Care Team Description 05/04/2014 [facility]ill [facility] [address] [place], [place] [id number] Social History Tobacco Use Types Packs/Day Years Used Date Never Smoker Smokeless Tobacco: Never Used Alcohol Use Standard Drinks/Week Comments No 0 (1 standard drink = 0.6 oz pure alcoho l) Sex Assigned at Date Recorded Not on file documented as of this encounter Miscellaneous Notes Telephone Encounter - Corin Mclean RN - 05/04/2014 9:02 AM EDT Patient did not take printed prescription yesterday. Redone and faxed. documented in this encounter Plan of Treatment Not on filedocumented as of this encounter Visit Diagnoses Not on filedocumented in this encounter Care Teams Knitting Machine Operator Helper Relationship Specialty Start Date End Date Allison Granados APRN PCP - General 04/22/14 06/27/[address] [facility] [address] [place] [address] documented as of this encounter
--- OUTSIDE RECORDS SUMMARY | 2021-12-28 04:11 | XMS_ITS | Encounter Summary ---
:1950 Author Organization [facility] [place] [address] Care Team Providers Name Role Phone Allison Hector APRN Primary Care Provider [phone] Reason for Referral Surgical (Routine) - Closed Specialty Diagnoses / Procedures Referred By Contact Refer red To Contact Orthopaedic Surgery / Diagnoses Bilateral lumbar radiculopathy Allison Hectorle [facility] [place] [facility] [address] [place] [id number] [place] [address] Referral ID Status Reason Start Date Expiration Date Visits V isits Requested Authorized [id number] Closed Consult, 07/11/2014 07/11/2015 1 1 Test & Treat Reason for Visit Reason Comments Leg Pain followup on Lyrica, stopped , made her feel sick,trouble sleeping Abdominal Pain followup on renal mass URI came down with it last week Cough Pharyngitis said it is a little sore thi s morning Encounter Details Date Type Department Care Team Description 07/11/2014 Follow-Up Internal Medicine at Allison Hector So re throat; [address], SOILA Renal mass; [address] [facility] [place]ilateral [place] [address] GENERAL INTERNAL [phone] [place] [address] (Wo rk) Social History Tobacco Use Types Packs/Day Years Used Date Never Smoker Smokeless Tobacco: Never Used Alcohol Use Standard Drinks/Week Comments No 0 (1 standard drink = 0.6 oz pure alcoho l) Sex Assigned at Date Recorded Not on file documented as of this encounter Last Filed Vital Signs Vital Sign Reading Time Taken Comments Blood Pressure 131/70 07/11/2014 9:18 AM EST Pulse 71 07/11/2014 9:18 AM EST Temperature 36.7 ??C (98.1 ??F) 07/11/2014 9:18 AM EST Respiratory Rate - - Oxygen Saturation 98% 07/11/2014 9:18 AM EST Inhaled Oxygen Concentration - - Weight 59.7 kg (131 lb 9.6 oz) 07/11/2014 9:18 AM EST Height 165.1 cm (5' 5) 07/11/2014 9:18 AM EST reported Body Mass Index 21.9 07/11/2014 9:18 AM EST documented in this encounter Progress Notes Allison Hector APRN - 07/11/2014 9:34 AM EST PCP: ALLISON HECTOR APRN Chief Complaint Patient presents with ??? Leg Pain followup on Lyrica, stopped , made her feel sick,trouble sleeping ??? Abdominal Pain followup on renal mass ??? URI came down with it last week ??? Cough ??? Pharyngitis said it is a little sore this morning SUBJECTIVE: Elida Montez is a 63 y.o. female who presents for follow up on her leg pain and for cold symptoms. Leg pain- it is keeping her awake. She reports that it is primarily into her achilles and her feet. She reports that she has to change position frequently. She feels that the pain is getting worse. - she has tried gabapentin, meloxicam, tramadol, lyrica, ropinerole, vicodin, dixilant , Naproxen as well, none of these have helped for this pain. She reports that it is a burning pain into the back of her heels. It did improve after the steriod injections in April. Gabapentin was not helpful or the lyrica. LLQ discomfort- it comes and goes and is improved with daily metamucil. Cough- ongoing for less than week. She woke with sore throat this morning. Her has some similar symptoms recently. Review of Systems Constitutional: Negative for fever, chills and fatigue. HENT: Positive for rhinorrhea, sinus pressure and sore throat. Negative for congestion and ear pain. Respiratory: Positive for cough. Negative for shortness of breath and wheezing. Cardiovascular: Negative for chest pain and palpitations. Gastrointestinal: Positive for abdominal pain (intermittent) and constipation. Negative for nausea, vomiting, diarrhea and blood in stool. Musculoskeletal: Positive for back pain (low back pain into hips, worse when having leg pain. Improved some with injections). Skin: Negative for rash. Neurological: Negative for weakness, light-headedness and headaches. Hematological: Negative for adenopathy. Allergies Allergen Reactions ??? Codeine Nausea And Vomiting Current Outpatient Prescriptions Medication Sig Dispense Refill ??? triamcinolone (KENALOG) 0.1 % Cream Apply 1 Application topically 2 times daily. ??? fluticasone-salmeterol (ADVAIR DISKUS) 250-50 mcg/dose Disk with Device Inhale 1 puff into the lungs 2 times daily. 3 Inhaler 3 ??? albuterol (PROVENTIL HFA;VENTOLIN HFA) 90 mcg/actuation HFA Aerosol Inhaler Inhale 2 puffs into the lungs as needed. Use with spacer ??? pregabalin (LYRICA) 75 mg Capsule Take 1 capsule by mouth 2 times daily. 90 tablet 1 ??? ESOMEPRAZOLE MAGNESIUM (NEXIUM ORAL) Take 1 tablet by mouth daily. Current Facility-Administered Medications Medication Dose Route Frequency Provider Last Rate Last Dose ??? iohexol (OMNIPAQUE) 350 mg iodine/mL injection 38,500 mg 110 mL Intravenous Once PRN Rodolfo Garner MD Patient Active Problem List Diagnosis Code ??? Radiculopathy of lumbar region 724.4 ??? Renal mass 593.9 ??? Neck pain 723.1 ??? Asthma 493.90 ??? Health care maintenance V70.0 OBJECTIVE: Filed Vitals: 07/11/14 0918 BP: 131/70 Pulse: 71 Temp: 36.7 ??C (98.1 ??F) Height: 165.1 cm (5' 5) Weight: 59.693 kg (131 lb 9.6 oz) SpO2: 98% PHYSICAL EXAM: Physical Exam Constitutional: She is oriented to person, place, and time. She appears well- developed and well-nourished. HENT: Head: Normocephalic and atraumatic. Right Ear: External ear normal. Left Ear: External ear normal. Nose: Nose normal. Mouth/Throat: Oropharynx is clear and moist. Eyes: Conjunctivae are normal. Pupils are equal, round, and reactive to light. Cardiovascular: Normal rate, regular rhythm and normal heart sounds. Pulmonary/Chest: Effort normal and breath sounds normal. No respiratory distress. She has no wheezes. She has no rales. Abdominal: Soft. Bowel sounds are normal. She exhibits no distension. There is no tenderness. There is no rebound and no guarding. Lymphadenopathy: She has no cervical adenopathy. Neurological: She is alert and oriented to person, place, and time. She has normal reflexes. Coordination normal. Skin: Skin is warm and dry. Psychiatric: She has a normal mood and affect. Vitals reviewed. ASSESSMENT & PLAN: Elida was seen today for leg pain, abdominal pain, uri, cough and pharyngitis. Diagnoses and associated orders for this visit: Sore throat - likely viral URI - symptomatic treatment continue to monitor and let us know if symptoms get worse or do not improve Renal mass - Urinalysis with microscopic - Basic Metabolic Panel (non-fasting); Future - Basic Metabolic Panel (non-fasting) Bilateral lumbar radiculopathy - Referral to Spine Center - for possible repeat steriod injection as first was helpful. - patient has stopped the lyrica at this time. documented in this encounter Plan of Treatment Scheduled Referrals Name Type Priority Associated Diagnoses Order S chedule Referral to Spine Outpatient Referral Routine Bilateral lumbar Ordered: Center radiculopathy 07/11/2014 documented as of this encounter Procedures Procedure Name Priority Date/Time Associated Comments Diagnosis URINALYSIS WITH Routine 07/11/2014 10:49 AM Renal mass Resul ts for this REFLEX CULTURE EST procedure are in the results section. BASIC METABOLIC Routine 07/11/2014 10:49 AM Renal mass Resul ts for this PANEL (NON-FASTING) EST procedur e are in the results section. documented in this encounter Results (ABNORMAL) Basic Metabolic Panel (non-fasting) (07/11/2014 10:49 AM EST) P athologist Signature Glucose Lvl 95 60 - 199 CERNER mg/dL MILLENNIUM Comment: Diabetes: >=200 mg/dL plus symp toms BUN 13 8 - 18 mg/dL CERNER MILLENNIUM Creatinine 0.63 (L) 0.70 - 1.20 mg/dL CERNER MILL ENNIUM Comment: Please note that the pediatric reference intervals supplied above were not validated at [facility]. Results from pediatri c patients should be interpreted in conjunction to the patient's age, height and muscle mass. Sodium 142 135 - 145 mmol/L CERNER GIAN NIUM Potassium 4.3 3.5 - 5.0 mmol/L CERNER GIAN NIUM Comment: Please note: ??Patients with WBC >100,00 0 may have falsely elevated Potassium levels. ??For accurate Potassium quantif ication in these patients send serum separator tube (gold top) for subsequent determinations. ??Contact the Clinical Chemistry Laboratory if there are any qu estions. Chloride 103 98 - 107 mmol/L CERNER MILLENN IUM CO2 26 22 - 31 mmol/L CERNER MILLENNI UM Anion Gap 13 5 - 15 mmol/L CERNER MILLENNIU M Calcium 9.3 8.5 - 10.5 mg/dL CERNER GIAN NIUM Estimated GFR >60 >=60 CERNER MILLENNIU M [...] the following links into your internet browser. [email or web address] Specimen Anatomical Collection Method Collection Time Receive d Time (Source) Location / / Volume Laterality Blood specimen 07/11/2014 10:49 5 (specimen) AM EST 12:06 PM EST Resulting Agency Comment Spec In Lab Corin Montoya MD CHEMISTRY ORDERABLES Performing Organization Address City/[facility]/[place]IP [place] [address] CERNER MILLENNIUM Urinalysis with microscopic (07/11/2014 10:49 AM EST) [facility] Method Time Signature Glucose UA Negative Negative CERNER mg/dL MILLENNIUM Protein UA Negative Negative CERNER mg/dL MILLENNIUM Bilirubin UA Negative Negative CERNER mg/dL MILLENNIUM Comment: Clinical correlation required for positi ve Urine Bilirubin results as false positive may occur with some drugs and d rug related products. If a false positive is suspected a serum total bili [place] should be considered if clinically indicated. Urobilinogen UA Normal Normal mg/dL CERNER MILL ENNIUM pH UA 6.0 5.0 - 8.0 CERNER MILLENNIUM Blood UA Negative Negative mg/dL CERNER MILLENNI UM Ketones UA Negative Negative mg/dL CERNER MILLENN IUM Nitrite UA Negative Negative CERNER MILLENNIUM Leukocytes UA Negative Negative mcL CERNER GIAN NIUM Appearance UA Clear Clear CERNER MILLENNIU M Spec [place] UA 1.010 1.002 - 1.030 CERNER MIL LENNIUM Color UA Straw Yellow CERNER MILLENNIUM RBC UA 1 0 - 4 /HPF CERNER MILLENNIUM WBC UA Not Present 0 - 5 /HPF CERNER MILLENNIUM Specimen Anatomical Collection Method Collection Time Receive d Time (Source) Location / / Volume Laterality Urine specimen 07/11/2014 10:49 5 (specimen) AM EST 12:06 PM EST Resulting Agency Comment Spec In Lab Corin Montoya MD URINE ORDERABLES Performing Organization Address City/[facility]/[place]IP [place] [address] CERNER MILLENNIUM documented in this encounter Visit Diagnoses Diagnosis Sore throat Acute pharyngitis Renal mass Unspecified disorder of kidney and urete r Bilateral lumbar radiculopathy documented in this encounter Care Teams Supervisor Insecticide Relationship Specialty Start Date End Date Allison Hector APRN PCP - General 04/22/14 06/27/21 [facility] [address] [place] [address] documented as of this encounter
--- OUTSIDE RECORDS SUMMARY | 2021-12-28 04:11 | XMS_ITS | Encounter Summary ---
:1950 Author Organization [facility] [place] [address] Care Team Providers Name Role Phone Shireen Montoya MD Primary Care Provider Reason for Visit Reason Comments Other follow up Encounter Details Date Type Department Care Team Description 04/04/2014 Follow-Up [facility] DR PENA Radidominique gonzalez of lumbar [place] Helen Jara, [facility] [facility] [facility] [place] [address] region (Primary Dx) [place] [address] Social History Tobacco Use Types Packs/Day Years Used Date Never Smoker Smokeless Tobacco: Never Used Sex Assigned at Date Recorded Not on file documented as of this encounter Last Filed Vital Signs Vital Sign Reading Time Taken Comments Blood Pressure 114/70 04/04/2014 5:00 PM EDT Pulse - - Temperature - - Respiratory Rate - - Oxygen Saturation - - Inhaled Oxygen Concentration - - Weight 54.4 kg (120 lb) 04/04/2014 5:00 PM EDT Height 154.9 cm (5' 1) 04/04/2014 5:00 PM EDT Body Mass Index 22.67 04/04/2014 5:00 PM EDT documented in this encounter Plan of Treatment Not on filedocumented as of this encounter Results CT abdomen with/WO contrast (04/21/2014 9:26 AM EDT) Anatomical Region Laterality Modality Abdomen Computed Tomography Specimen (Source) Anatomical Collection Method Collection Time Re ceived Time Location / / Volume Laterality 04/21/2014 9:26 AM EDT Narrative 04/21/2014 12:[address] Abdomen With & Without Contrast Clinical History lesion Left medial kidney Comparison None Technique Helical CT of the abdomen was performed in 3 phases. ??Intravenous contrast was administered, 110 mL Omnipaque 350. Findings NONCONTRAST Lung bases and visualized cardiac struct ures are within normal limits. No nephrolithiasis. Scattered calcificat ions seen within the abdominal aorta. No suspicious osseous lesions. ??Osteoph yte formation of the lower thoracic spine. WITH CONTRAST Right kidney: ??Subcentimeter low-densit y cystic lesion within the posterior upper pole, too small to characterize. ? ?No hydronephrosis. Left kidney: Irregularly-shaped 13 mm hy podense indeterminate central interpolar lesion subjacent to focal cor tical scarring. Given size and lobulated contour, we suspect peripheral artifact from volume averaging leading to pseudoenhancement. ??11 mm cystic les ion peripherally interpolar measuring fluid density, consistent with simple re nal cyst. ??No hydronephrosis. Visualized liver and spleen are normal. ??Post cholecystectomy. ??Pancreas and adrenal glands are normal. ??No free int raperitoneal fluid or air is seen no intra-abdominal lymphadenopathy. ??The b owel is of normal caliber without evidence of inflammation. ??Abdominal wa ll is within normal limits. Impression 13 mm indeterminate central interpolar l eft renal mass. Follow up in six months' time suggested. Peripheral left interpolar renal cyst. Indeterminate subcm right renal lesion p osterior upper pole right kidney. Film and interpretation reviewed by the attending Procedure Note Lyn Gamble MD - 04/21/[address] Abdomen With & Without Contrast Clinical History lesion Left medial kidney Comparison None Technique Helical CT of the abdomen was performed in 3 phases. Intravenous contrast was administered, 110 mL Omnipaque 350. Findings NONCONTRAST Lung bases and visualized cardiac struct ures are within normal limits. No nephrolithiasis. Scattered calcificat ions seen within the abdominal aorta. No suspicious osseous lesions. Osteophyt e formation of the lower thoracic spine. WITH CONTRAST Right kidney: Subcentimeter low-density cystic lesion within the posterior upper pole, too small to characterize. N o hydronephrosis. Left kidney: Irregularly-shaped 13 mm hy podense indeterminate central interpolar lesion subjacent to focal cor tical scarring. Given size and lobulated contour, we suspect peripheral artifact from volume averaging leading to pseudoenhancement. 11 mm cystic lesio n peripherally interpolar measuring fluid density, consistent with simple re nal cyst. No hydronephrosis. Visualized liver and spleen are normal. Post cholecystectomy. Pancreas and adrenal glands are normal. No free intra peritoneal fluid or air is seen no intra-abdominal lymphadenopathy. The bow el is of normal caliber without evidence of inflammation. Abdominal wall is within normal limits. Impression 13 mm indeterminate central interpolar l eft renal mass. Follow up in six months' time suggested. Peripheral left interpolar renal cyst. Indeterminate subcm right renal lesion p osterior upper pole right kidney. Film and interpretation reviewed by the attending Ilia Flores MD IMG CT ORDERABLES documented in this encounter Visit Diagnoses Diagnosis Radiculopathy of lumbar region - Primary Thoracic or lumbosacral neuritis or radi culitis, unspecified Radiculopathy of lumbar region Thoracic or lumbosacral neuritis or radi culitis, unspecified documented in this encounter Care Teams Director Sports Relationship Specialty Start Date End Date Shireen Montoya MD PCP - General 05/29/10 04/21/14 [address] [place] [address] documented as of this encounter
--- OUTSIDE RECORDS SUMMARY | 2021-12-28 04:11 | XMS_ITS | Encounter Summary ---
:1950 Author Organization [facility] Address [facility] [address] [place] [address] Care Team Providers Name Role Phone Roberta Allison Rain APRN Primary Care Provider [phone] Encounter Details Date Type Department Care Team Description 10/06/2014 Hospital Encounter XRay at [facility], DR PENA Osteopenia [address] [place] [address] Lorri Hardy MD [facility] [place] [place] [address] [place] [address] Social History Tobacco Use Types Packs/Day Years Used Date Never Smoker Smokeless Tobacco: Never Used Alcohol Use Standard Drinks/Week Comments No 0 (1 standard drink = 0.6 oz pure alcoho l) Sex Assigned at Date Recorded Not on file documented as of this encounter Medications at Time of Discharge Medication Sig Dispensed Refills Start Date End Date DULoxetine (CYMBALTA) 30 Take 2 capsules by 60 tablet 11 07/201412/01/2014 mg Capsule, Delayed mouth daily. Release(E.C.) triamcinolone (KENALOG) Apply 1 Application 0 10/30/2015 0.1 % Cream topically as needed. fluticasone-salmeterol Inhale 1 puff into 3 Inhaler 3 05/0310/19/2014 (ADVAIR DISKUS) 250-50 the lungs 2 times mcg/dose Disk with daily. Device ESOMEPRAZOLE MAGNESIUM Take 1 tablet by 0 01/23/2015 (NEXIUM ORAL) mouth daily. albuterol (PROVENTIL Inhale 2 puffs into 0 05/04/2015 HFA;VENTOLIN HFA) 90 the lungs as needed. mcg/actuation HFA Use with spacer Aerosol Inhaler documented as of this encounter Plan of Treatment Not on filedocumented as of this encounter Procedures Procedure Name Priority Date/Time Associated Diagnosis Comme nts DXA CENTRAL SPINE, Routine 10/06/2014 10:39 AM Osteopenia Re sults for this HIP, AND/OR WHOLE EDT procedure are in BODY (GENERIC) the results section. documented in this encounter Results Dexa central-spine, hip, and/or whole body (10/06/2014 10:39 AM EDT) Anatomical Region Laterality Modality C-spine, Hip N/A Radiographic Imaging Specimen (Source) Anatomical Collection Method Collection Time Re ceived Time Location / / Volume Laterality 10/06/2014 10:39 AM EDT Impressions 10/11/2014 4:39 PM EDT IMPRESSION: The measurements fulfill the WHO classi fication for osteoporosis. The fracture risk are increased. Consider serial foll ow-up to assess response to therapy. Estimating Fracture Risk: ? The relationship between bone mineral de nsity (BMD) and risk of fracture is well established. As BMD decreases, risk incr eases. Quantifying risk is difficult and is usually limited to estimation of the relative risk - a term which may have limited value when trying to discuss an individual's risk. Estimating the absolute risk for a patient requires an understanding of the incidence rate in a given population and consideration of mu ltiple, partially independent, risk factors in addition to BMD. ? The World Health Organization (WHO) has developed a fracture risk prediction tool that calculates a ten-year risk of major osteoporotic fracture based on femoral neck bone density measurements a nd nine clinical risk factors for individuals who have not been treated fo r osteoporosis. This is available through an interactive web-based [employer] ce (http://www.shef.ac.uk/FRAX/) and can be used to estimate a given patient's ab solute risk of major osteoporotic fracture or hip fracture over the next 1 0 years. These estimates may prove useful when discussing risk with a patie nt. It is important, however, to understand the tool's limitations and ho w a given individual's risk might differ from the tool's estimate. The tool does not take into account the dose-response associated with most risk factors. For e xample, the significant increase in risk associated with multiple prior fractures compared to a single prior fracture is not taken into account. Similarly, the l ocation of a previous fracture, the amount of glucocorticoids and number of cigarettes smoked are not considered. These limitations are discussed in a Fr equently Asked Questions section of the FRAX website which you are encouraged to review. ? DEXA data sheets with BMD measurements a nd plots are available in [employer] under the imaging tab. Paper copies will be sent to providers without E-DH access. If you have received this report without th e data sheet and do not have access to [employer], please contact Radiology Transcrip tion at [phone] Friday thru Friday 8am-4pm. Narrative 10/11/2014 4:39 PM EDT EXAMINATION: DXA CENTRAL-SPINE,HIP, AND/OR WHOLE BODY CLINICAL HISTORY: osteopenia From self reported history, there is ??p ast osteoporosis intervention with ? medication TECHNIQUE: Scans were acquired at the mbar spine, ?and left hip. COMPARISON: none FINDINGS: Lowest T-score at a diagnostic region of interest: T-score: -2.9, SHAMAR: Lumbar spine, WHO di agnosis: Osteoporosis Procedure Note Iris Rosenthal MD - 10/11/2014Formatt ing of this note might be different from the original. EXAMINATION: DXA CENTRAL-SPINE,HIP, AND/ OR WHOLE BODY CLINICAL HISTORY: osteopenia From self reported history, there is pas t osteoporosis intervention with medication TECHNIQUE: Scans were acquired at the brandt mbar spine, and left hip. COMPARISON: none FINDINGS: Lowest T-score at a diagnostic region of interest: T-score: -2.9, SHAMAR: Lumbar spine, WHO di agnosis: Osteoporosis IMPRESSION IMPRESSION: The measurements fulfill the WHO classi fication for osteoporosis. The fracture risk are increased. Consider serial foll ow-up to assess response to therapy. Estimating Fracture Risk: ? The relationship between bone mineral de nsity (BMD) and risk of fracture is well established. As BMD decreases, risk incr eases. Quantifying risk is difficult and is usually limited to estimation of the relative risk - a term which may have limited value when trying to discuss an individual's risk. Estimating the absolute risk for a patient requires an understanding of the incidence rate in a given population and consideration of mu ltiple, partially independent, risk factors in addition to BMD. ? The World Health Organization (WHO) has developed a fracture risk prediction tool that calculates a ten-year risk of major osteoporotic fracture based on femoral neck bone density measurements a nd nine clinical risk factors for individuals who have not been treated fo r osteoporosis. This is available through an interactive web-based interfa ce (http://www.shef.ac.uk/FRAX/) and can be used to estimate a given patient's ab solute risk of major osteoporotic fracture or hip fracture over the next 1 0 years. These estimates may prove useful when discussing risk with a patie nt. It is important, however, to understand the tool's limitations and ho w a given individual's risk might differ from the tool's estimate. The tool does not take into account the dose-response associated with most risk factors. For e xample, the significant increase in risk associated with multiple prior fractures compared to a single prior fracture is not taken into account. Similarly, the l ocation of a previous fracture, the amount of glucocorticoids and number of cigarettes smoked are not considered. These limitations are discussed in a Fr equently Asked Questions section of the FRAX website which you are encouraged to review. ? DEXA data sheets with BMD measurements a nd plots are available in [employer] under the imaging tab. Paper copies will be sent to providers without E-DH access. If you have received this report without th e data sheet and do not have access to [employer], please contact Radiology Transcrip tion at [phone] Friday thru Friday 8am-4pm. Lorri Moran MD IMG DEXA ORDERABLES documented in this encounter Visit Diagnoses Diagnosis Osteopenia Disorder of bone and cartilage, unspecif ied documented in this encounter Care Teams Market Research Associate Relationship Specialty Start Date End Date Allison Granados, SOILA PCP - General 04/22/14 06/27/[address] [facility] [address] [place] [address] documented as of this encounter
--- OUTSIDE RECORDS SUMMARY | 2021-12-28 04:11 | XMS_ITS | Encounter Summary ---
:1950 Author Organization [facility] [place] [address] Care Team Providers Name Role Phone Shireen Montoya MD Primary Care Provider Encounter Details Date Type Department Care Team Description 04/04/2014 Hospital Encounter Ultrasound at [facility] [place] [address] Social History Tobacco Use Types Packs/Day Years Used Date Never Smoker Smokeless Tobacco: Never Used Sex Assigned at Date Recorded Not on file documented as of this encounter Medications at Time of Discharge Medication Sig Dispensed Refills Start Date End Date ESOMEPRAZOLE MAGNESIUM Take 1 tablet by 0 01/23/2015 (NEXIUM ORAL) mouth daily. albuterol (PROVENTIL Inhale 2 puffs into 0 05/04/2015 HFA;VENTOLIN HFA) 90 the lungs as mcg/actuation HFA Aerosol needed. Use with Inhaler spacer fluticasone-salmeterol Inhale 1 puff into 0 05/03/2014 (ADVAIR DISKUS) 250-50 the lungs 2 times mcg/dose Disk with Device daily. documented as of this encounter Plan of Treatment Not on filedocumented as of this encounter Procedures Procedure Name Priority Date/Time Associated Comments Diagnosis US RETROPERITONEAL Routine 04/04/2014 3:45 Renal mass Result s for this COMPLETE PM EDT procedure are i n the results section. documented in this encounter Results US retroperitoneal complete (04/04/2014 3:45 PM EDT) Anatomical Region Laterality Modality Abdomen Ultrasound Specimen (Source) Anatomical Collection Method Collection Time Re ceived Time Location / / Volume Laterality 04/04/2014 3:45 PM EDT Narrative 04/04/2014 4:02 PM EDT Renal ?(Signed Final 04/04/2014 04:01 ? pm) Patient Info ID #: ? [id number] ?: ??[birth year] (63 yrs) Name: ? JAGRUTI DINH ?Visit Date: 04/04/2014 03:35 pm Performed By Performed By: ?Josselin Gallegos RDMS Associate: ? Barb DARDEN, Dane Attending: ? Breezy DARDEN, Oriana JDavie Referred By: ? JACQUELIN SANDY MD Service(s) Provided ??URETRO - Retroperitoneal Complete - 0 [id number] ? [id number] Indications ??mass noted left kidney on MRI Right Kidney Size (cm) ?L: ??10.3 Cortical Thickness: ?Normal Cortical Echogenicity: ?? Normal Hydronephrosis: ?No sonogr aphic evidence Left Kidney Size (cm) ?L: ??11.1 Cortical Thickness: ?Normal Cortical Echogenicity: ?? Normal Hydronephrosis: ?No sonogr aphic evidence Comment: ?Mid pole, lasteral simple cyst seen, measuring 1.0 ? cm, and tiny 0.5 cm L P cyst. Urinary Bladder Pre-void (cm) ? L: ??3.6 ? A P: ??1.1 ? TV: ??3.1 Vol (ml): ?6.4 Comment: ?Minimally distended, norm al contour Impression Ultrasound - ??Retroperitoneal Complete - Summary 1. ??Two tiny renal cysts in the LEFT k idney. 2. ??The lesion noted on MR is medial i n the Left kidney and therefore not well evaluated with u ltrasound. ??To gain complete and accurate evaluation o f the medial left renal tissue a Ct scan with and wi thout contrast is recommended. I ??viewed the images and agree with th e above interpretation. ?Oriana Tijerina MD Electronically Signed Final Report ?? 04:01 pm Film and interpretation reviewed by the attending Procedure Note Oriana Tijerina MD - 04/04/2014Forma tting of this note might be different from the original. Renal (Signed Final 04/04/2014 04:01 pm) Patient Info ID #: [id number] : [birth year] (63 y rs) Name: JAGRUTI DINH Visit Date: 014 03:35 pm Performed By Performed By: Josselin Gallegos RDMS Associate: Dane Day MD Attending: Oriana Tijerina MD Referred By: JACQUELIN SANDY MD Service(s) Provided URETRO - Retroperitoneal Complete - [phone] [id number] Indications mass noted left kidney on MRI Right Kidney Size (cm) L: 10.3 Cortical Thickness: Normal Cortical Echogenicity: Normal Hydronephrosis: No sonographic evidence Left Kidney Size (cm) L: 11.1 Cortical Thickness: Normal Cortical Echogenicity: Normal Hydronephrosis: No sonographic evidence Comment: Mid pole, lasteral simple cyst seen, measuring 1.0 cm, and tiny 0.5 cm LP cyst. Urinary Bladder Pre-void (cm) L: 3.6 AP: 1.1 TV: 3.1 Vol (ml): 6.4 Comment: Minimally distended, normal co ntour Impression Ultrasound - Retroperitoneal Complete - Summary 1. Two tiny renal cysts in the LEFT kid isabel. 2. The lesion noted on MR is medial in the Left kidney and therefore not well evaluated with u ltrasound. To gain complete and accurate evaluation o f the medial left renal tissue a Ct scan with and wi thout contrast is recommended. I viewed the images and agree with the above interpretation. Oriana Tijerina MD Electronically Signed Final Report 04/04 04:01 pm Film and interpretation reviewed by the attending Domingo Abdi MD IM US GEN ORDERABLES documented in this encounter Visit Diagnoses Diagnosis Renal mass Unspecified disorder of kidney and urete r documented in this encounter Care Teams Fitness Coordinator Relationship Specialty Start Date End Date Shireen Montoya MD PCP - General 05/29/10 04/21/14 [address] [place] [address] documented as of this encounter
--- OUTSIDE RECORDS SUMMARY | 2021-12-28 04:11 | XMS_ITS | Encounter Summary ---
:1950 Author Organization [place] [address] Care Team Providers Name Role Phone Roberta, Allison Rain APRN Primary Care Provider [phone] Encounter Details Date Type Department Care Team Description 02/21/2011 Orders Only XRay at [facility] Rvier Green MD [address] [place] [address] [place] [address] DIAGNOSIC RADIOLOGY [phone] [place], [place] [address] (Wo rk) Social History Tobacco Use Types Packs/Day Years Used Date Never Assessed Sex Assigned at Date Recorded Not on file documented as of this encounter Plan of Treatment Not on filedocumented as of this encounter Procedures Procedure Name Priority Date/Time Associated Diagnosis Comme nts FILM LIBRARY Routine 02/21/2011 11:15 AM Results for this STORAGE ONLY MAMMO EDT procedure are in the results section. documented in this encounter Results Film Library- Storage only Mammo (02/21/2011 11:15 AM EDT) Anatomical Region Laterality Modality Other Specimen (Source) Anatomical Collection Method Collection Time Re ceived Time Location / / Volume Laterality 02/21/2011 11:15 AM EDT Narrative 02/06/2015 11:29 AM EDT This is a Non-reportable exam Procedure Note BEVERLEY, UNSIGNED REPORT - 02/06/2015Formatt ing of this note might be different from the original. This is a Non-reportable exam River Green MD [facility] FILM LIBRARY ORDERABLES documented in this encounter Visit Diagnoses Not on filedocumented in this encounter Care Teams Trade Mark Examiner Relationship Specialty Start Date End Date Allison Granados, VERTICAL BORER PCP - General 04/22/14 06/27/21 [facility] [place] [address] documented as of this encounter
--- OUTSIDE RECORDS SUMMARY | 2021-12-28 04:11 | XMS_ITS | Encounter Summary ---
:1950 Author Organization [facility] [place] [address] Care Team Providers Name Role Phone Shireen Montoya MD Primary Care Provider Reason for Visit Reason Comments Other buttocks Other upper legs Encounter Details Date Type Department Care Team Description 03/04/2014 Office Visit [facility], Radicul opathy of lumbar [facility] region (Primary Dx) [facility] [place] [facility] [id number] [place] [address] [phone] Social History Tobacco Use Types Packs/Day Years Used Date Never Smoker Smokeless Tobacco: Never Used Sex Assigned at Date Recorded Not on file documented as of this encounter Last Filed Vital Signs Vital Sign Reading Time Taken Comments Blood Pressure 112/61 03/04/2014 8:11 AM EDT Pulse - - Temperature - - Respiratory Rate - - Oxygen Saturation - - Inhaled Oxygen Concentration - - Weight 55.3 kg (122 lb) 03/04/2014 8:11 AM EDT Height 154.9 cm (5' 1) 03/04/2014 8:11 AM EDT Body Mass Index 23.05 03/04/2014 8:11 AM EDT documented in this encounter Progress Notes [facility], [employer] BROKER ASSOCIATE - 03/04/2014 8:47 AM EDT Chief complaint: Chief Complaint Patient presents with ??? Other buttocks ??? Other upper legs History of present illness:This patient is a 63 y.o. female that presents to the spine center for 4 weeks of back and anterior leg pain to the feet. Symptoms started all of a sudden and have been getting worse. She says that her symptoms started about 6:30 at night and last all night and are about 10 on a scale of 10. Her symptoms lessen at about 2:00 when she sits down to watch some TV. There is no real numbness. She does soak a bathtub to try to alleviate her symptoms when she gets out of the tub her legs feel weak. Better she walks her sits or uses the tub it's worse with standing or lying. She does not sleep at night and she's not supple for the past 2 months since the pain started. She also walks her dog during the day. 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 She does not usetobacco or alcohol. Problem List: Patient Active Problem List Diagnosis Code ??? Radiculopathy of lumbar region 724.4 Review of Systems: Positive for GERD, positive for night sweats positive for urinary frequency particularly at night and leg movements. Negative for other GI, , constitutional symptoms Medications and allergies were reviewed and updated. Physical Examination: Since thin-appearing female age 63. [place] shoulders, hips, knees are grossly level to inspection she is not acutely tender points to the sacral area for area that is painful. Shesome mild pain in the buttocks. Her gait is nonantalgic and she can walk briefly on her heels and toes. She has good lumbar flexibility. She is normal strength, sensation, and reflexes. Dural tension signs are positive in femoral tension stretch left more so than right. Straight leg raises are negative. There are negative SI joint dysfunction tests Diagnostic data: There are no images to review but an MRI of the lumbar spine was ordered today appear Assessment: He has radicular findings consistent with an L4 or L5 radiculitis. Plan: She is going to have an MRI of the lumbar spine and followup with me afterwards to determine whether or not she should have a referral to physical therapy, referral for injection, referral to a surgeon. We will review her findings in detail and discuss this further at your followup appointment. All questions were answered today to I did give her a prescription for MOBIC to try in the meantime to add to the gabapentin that she is taking and the tramadol and I recommended that she increase her evening dose of gabapentin to 900 mg see if that will help her sleep in combination with the MOBIC. Since her symptoms started around 6:30 a recommended shaped the moment for him 5 with food. This note was written with voice recognition software documented in this encounter Plan of Treatment Not on filedocumented as of this encounter Results MRI lumbar spine without contrast (03/18/2014 3:08 PM EDT) Anatomical Region Laterality Modality L-spine Magnetic Resonance Specimen (Source) Anatomical Collection Method Collection Time Re ceived Time Location / / Volume Laterality 03/18/2014 3:08 PM EDT Narrative 03/18/2014 3:52 PM EDT Examination MR Lumbar Spine WO Clinical History back and leg pain Technique MRI of the lumbar spine was performed wi thout contrast Comparison NONE Findings There are 5 uns-mau-yvrvhlb lumbar type vertebrae. Alignment is normal; no spondylolisthesis. The regional bone mar row signal is heterogeneous with a more prominent at 11 millimeter round T1 and T2 hypointense lesion in the L2 vertebral body. ??The conus is normal in caliber and signal, terminating approximately L1-L2. No abdominal aortic aneurysm. Subcentimeter T2 hyperintense lesion and the left kidney likely reflect a simple renal cyst. Question round T2 hypointense lesion in the left renal parenchyma. Subcentimeter retroperitoneal lymph node s are noted. ?? Findings at individual levels: T12-L1: No spinal canal or neural forami nal stenosis. ?? L1-L2: No spinal canal or neural foramin al stenosis. ?? L2-L3: No spinal canal or neural foramin al stenosis. ?? L3-L4: No spinal canal or neural foramin al stenosis. Mild facet arthropathy. ?? L4-L5: Disc height loss with central dis c protrusion contributing to mild right subarticular recess narrowing. No signif icant central canal stenosis. Mild facet arthropathy without significant ne ural foraminal stenosis. ?? L5-S1: Small central disk protrusion wit h associated posterior annular fissure. No significant central canal stenosis. M oderate facet arthropathy without significant neural foraminal stenosis. ? ? Impression ? 1. L4-5 and L5-S1 disc herniation s without significant central canal or neural foraminal stenosis. Lower lumbar facet arthropathy, most advanced at L5-S1. ? 2. Heterogeneous marrow signal in the lumbar spine with scattered T1 and T2 hypointense marrow lesions. If there is no history of primary neoplasm, this most likely reflects osteoporosis with p atchy hematopoietic marrow. ? 3. Partially visualized T2 hyperi ntense lesion in the posterior mid left kidney. This could reflect artifact, hem orrhagic cyst or mass. ??Ultrasound may be helpful for further evaluation. ? 4. Small paraaortic retroperitone al lymph nodes. Comment: The following findings are so c ommon in people without low back pain that while we report their presence, the y must be interpreted with caution and in the context of the clinical situation . (Reference-Jarvik et al, Spine 2001) Findings: (prevalence in patients withou t low back pain), Disk degeneration (decreased T2 signal, height loss, bulge ) (91%), Disk T2-signal loss (83%), Disk height loss (56%), Disk bulge (64%) , Disk protrusion (32%), Annular fissure (38%). Procedure Note Patience Burleson MD - 03/18/2014Form atting of this note might be different from the original. Examination MR Lumbar Spine WO Clinical History back and leg pain Technique MRI of the lumbar spine was performed wi thout contrast Comparison NONE Findings There are 5 vey-nli-aulablz lumbar type vertebrae. Alignment is normal; no spondylolisthesis. The regional bone mar row signal is heterogeneous with a more prominent at 11 millimeter round T1 and T2 hypointense lesion in the L2 vertebral body. The conus is normal in c aliber and signal, terminating approximately L1-L2. No abdominal aortic aneurysm. Subcentimeter T2 hyperintense lesion and the left kidney likely reflect a simple renal cyst. Question round T2 hypointense lesion in the left renal parenchyma. Subcentimeter retroperitoneal lymph node s are noted. Findings at individual levels: T12-L1: No spinal canal or neural forami nal stenosis. L1-L2: No spinal canal or neural foramin al stenosis. L2-L3: No spinal canal or neural foramin al stenosis. L3-L4: No spinal canal or neural foramin al stenosis. Mild facet arthropathy. L4-L5: Disc height loss with central dis c protrusion contributing to mild right subarticular recess narrowing. No signif icant central canal stenosis. Mild facet arthropathy without significant ne ural foraminal stenosis. L5-S1: Small central disk protrusion wit h associated posterior annular fissure. No significant central canal stenosis. M oderate facet arthropathy without significant neural foraminal stenosis. Impression 1. L4-5 and L5-S1 disc herniations with out significant central canal or neural foraminal stenosis. Lower lumbar facet arthropathy, most advanced at L5-S1. 2. Heterogeneous marrow signal in the l umbar spine with scattered T1 and T2 hypointense marrow lesions. If there is no history of primary neoplasm, this most likely reflects osteoporosis with p atchy hematopoietic marrow. 3. Partially visualized T2 hyperintense lesion in the posterior mid left kidney. This could reflect artifact, hem orrhagic cyst or mass. Ultrasound may be helpful for further evaluation. 4. Small paraaortic retroperitoneal lym ph nodes. Comment: The following findings are so c ommon in people without low back pain that while we report their presence, the y must be interpreted with caution and in the context of the clinical situation . (Reference-Jarvik et al, Spine 2001) Findings: (prevalence in patients withou t low back pain), Disk degeneration (decreased T2 signal, height loss, bulge ) (91%), Disk T2-signal loss (83%), Disk height loss (56%), Disk bulge (64%) , Disk protrusion (32%), Annular fissure (38%). Domingo Abdi MD IMG MRI ORDERABLES documented in this encounter Visit Diagnoses Diagnosis Radiculopathy of lumbar region - Primary Thoracic or lumbosacral neuritis or radi culitis, unspecified Radiculopathy of lumbar region Thoracic or lumbosacral neuritis or radi culitis, unspecified documented in this encounter Care Teams Information Management Manager Relationship Specialty Start Date End Date Shireen Montoya MD PCP - General 05/29/10 04/21/14 [address] [place] [address] documented as of this encounter
--- OUTSIDE RECORDS SUMMARY | 2021-12-28 04:11 | XMS_ITS | Encounter Summary ---
:1950 Author Organization [facility] [place] [address] Care Team Providers Name Role Phone Shireen Montoya MD Primary Care Provider Encounter Details Date Type Department Care Team Description 03/09/2014 Telephone [facility] at [facility] [place] [address] Social History Tobacco Use Types Packs/Day Years Used Date Never Smoker Smokeless Tobacco: Never Used Sex Assigned at Date Recorded Not on file documented as of this encounter Miscellaneous Notes Telephone Encounter - Mendy Osullivan V - 03/09/2014 9:36 AM EDT Spoke to pt, let her know about her upcoming appts. documented in this encounter Plan of Treatment Not on filedocumented as of this encounter Visit Diagnoses Not on filedocumented in this encounter Care Teams Horse Show Manager Relationship Specialty Start Date End Date Shireen Montoya MD PCP - General 05/29/10 04/21/14 [address] [place] [address] documented as of this encounter
--- OUTSIDE RECORDS SUMMARY | 2021-12-28 04:11 | XMS_ITS | Encounter Summary ---
:1950 Author Organization [facility] [place] [address] Care Team Providers Name Role Phone Allison Granados APRN Primary Care Provider [phone] Reason for Referral Physical Therapy (Routine) - Closed Specialty Diagnoses / Procedures Referred By Contact Refer red To Contact Physical Therapy Diagnoses Bilateral lower extremity pain [facility] APRN [facility] [place], [place] [id number] [place] [phone] Referral ID Status Reason Start Date Expiration Date Visits V isits Requested Authorized [id number] Closed Evaluate and 07/14/2014 07/14/2015 12 12 Treat Consultation (Routine) - Closed Specialty Diagnoses / Procedures Referred By Contact Refer red To Contact Neurology Diagnoses Bilateral lower extremity pain [facility] APRN [facility] [address] [place] [address] [place] [address] Referral ID Status Reason Start Date Expiration Date Visits V isits Requested Authorized [id number] Closed Consult, 07/14/2014 07/14/2015 1 1 Test & Treat Reason for Visit Reason Comments Follow-up Discuss another injection Encounter Details Date Type Department Care Team Description 07/14/2014 Office Visit [facility] Bilater al [facility] CHILD CARE ASSOCIATE extremity pain [facility] [address] [place] [address] [place] [address] [phone] Social History Tobacco Use Types Packs/Day Years Used Date Never Smoker Smokeless Tobacco: Never Used Alcohol Use Standard Drinks/Week Comments No 0 (1 standard drink = 0.6 oz pure alcoho l) Sex Assigned at Date Recorded Not on file documented as of this encounter Last Filed Vital Signs Vital Sign Reading Time Taken Comments Blood Pressure - - Pulse - - Temperature - - Respiratory Rate - - Oxygen Saturation - - Inhaled Oxygen Concentration - - Weight 59.4 kg (131 lb) 07/14/2014 9:20 AM EST Height 154.9 cm (5' 1) 07/14/2014 9:20 AM EST Body Mass Index 24.75 07/14/2014 9:20 AM EST documented in this encounter Progress Notes [facility], SOILA - 07/14/2014 9:40 AM EST Chief complaint:bilateral leg symptoms it starts in the sole of the foot and radiate to the posterior calf and then up into the back and hip area. Sublective: Elida Montez is here to follow up after epidural injection April 08 for leg symptoms. Her response has been minimal. She had about 2 weeks of relief of some of her symptoms but they have recurred. She continues to also have some low back pain. .Medications and allergies were reviewed.Denies numbness, tingling, weakness Objective: Exam is not repeated. Imaging Revealsonly mild disc bulging at L4-5 without any evidence of significant foraminal or canal stenosis..she has easily palpable distal pulses and she can single leg heel raise walk on her heels and toes without any difficulty.she does have calf tenderness with compression Assessment:she also has some symptoms of restless leg syndrome. I am not convinced that her leg symptoms are coming from her back as there is no real evidence of stenosis and she had no real benefit from the steroid injection. Plan: for sure she is going to see a physical therapist to see if there is anything that we can do to alleviate her back pain and I'm going to refer her to neurology for an EMG and consult regarding restless leg syndrome and potentially other causes of her leg symptoms. documented in this encounter Plan of Treatment Scheduled Referrals Name Type Priority Associated Diagnoses Order S chedule Referral to Outpatient Referral Routine Bilateral lower Order ed: Neurology extremity pain 07/14/2014 Referral to Outpatient Referral Routine Bilateral lower Order ed: Physical Therapy extremity pain 5 documented as of this encounter Visit Diagnoses Diagnosis Bilateral lower extremity pain Pain in limb documented in this encounter Care Teams Clinical Trials Assistant Relationship Specialty Start Date End Date Allison Granados APRN PCP - General 04/22/14 06/27/[address] [facility] [address] [place] [address] documented as of this encounter
--- OUTSIDE RECORDS SUMMARY | 2021-12-28 04:11 | XMS_ITS | Encounter Summary ---
:1950 Author Organization [facility] [place] [address] Care Team Providers Name Role Phone Shireen Montoya MD Primary Care Provider Reason for Referral Consultation (Routine) - Closed Specialty Diagnoses / Procedures Referred By Contact Refer red To Contact Pain Management Diagnoses Radiculopathy of lumbar region [facility], SOILA [facility] [address] [place] [address] PAIN MEDICINE [place], [place] [id number] [place] [phone] Fax: Referral ID Status Reason Start Date Expiration Date Visits V isits Requested Authorized [id number] Closed Consult Only 03/23/2014 09/19/2014 1 1 Reason for Visit Reason Comments Low Back Pain With Radicular Pain to anterior thighs Encounter Details Date Type Department Care Team Description 03/23/2014 Follow-Up [facility], Radicul opathy of lumbar region (Primary Dx); [place] [facility] Renal mass [facility] [place] [address] PAIN MEDICINE [phone] [place], [place] [address] Social History Tobacco Use Types Packs/Day Years Used Date Never Smoker Smokeless Tobacco: Never Used Sex Assigned at Date Recorded Not on file documented as of this encounter Patient Instructions Patient InstructionsLaura Briceno LPN - 03/23/2014 10:29 AM EDT I would like you to sign up for myD-[facility], which will give you secure online access to your electronic medical record at [facility] and the ability to communicate with your health care team when and where it???s most convenient for you. With myD-H you will be able to: - look at parts of your medical record including test results and office notes - send and receive messages to/from me and your other providers - renew prescriptions - schedule appointments. To sign up, go to [email or web address] and click I have an activation code and follow the instructions. Here is your activation code: [email or web address] Expires: 05/07/2014 10:29 AM Remember, myD-H is NOT for urgent needs! Always dial 911 for medical emergencies. documented in this encounter Progress Notes [facility] APRN - 03/23/2014 10:40 AM EDT Subjective:Elida Dinh is here to review an MRI of the lumbar spine done to evaluate symptoms of back pain and bilateral anterior thigh pain. Since her last visit, symptoms have remained unchanged. She continues to have significant pain at night. She's not sleeping and walking the floor at night.. Medications and allergies were updated. She has no cancer history. She does have a history of arthritis and asthma. She has a family history of cancer but none in herself. Her pain since, asides midafternoon the returns in the evening and she has significant pain at rest. Objective: MRI of lumbar spine is reviewed in detail using the computer monitor. Findings were described in detail and explained to the patient's satisfaction. The findings are notable for mild degenerative changes worst at L4-5 where there is a bulging disc at L5-S1. There appears to be no significant nerve root impingement at either level and there is mild foraminal narrowing at L4-5. There is a hypointense lesion at L2 on both T1 and T2 sequences. There is also a hypointense lesion in the left kidney. And renal ultrasound is recommended.. The findings are somewhat consistent with Hersymptoms of back pain and bilateral anterior thigh pain.. Assessment: She has some mild narrowing at L4-5 which could contribute to her back pain and her leg symptoms. She also has this hypointense lesion at L2 and in the left kidney. He has no history of a primary cancer Plan: In view of Elida Dinh's symptoms of back pain and anterior thigh pain and findings of mild degenerative changes, hypointense lesion L2, hypointense lesion left kidney. We have discussed and agreed upon the following plan: She is going to have a renal ultrasound and followup with me afterwards. I'm scheduling her for an epidural steroid injection but I would like to review the renal ultrasound first. She would prefer that I do this and if there is any evidence of lesion I will refer her to neurology. I would like to followup with her in a different day because I don't typically read renal ultrasound and I would like to have the radiologist review it first.. documented in this encounter Plan of Treatment Scheduled Referrals Name Type Priority Associated Diagnoses Order S chedule Referral to Pain Outpatient Referral Routine Radiculopathy of Ordered: Clinic lumbar region 03/23/2014 documented as of this encounter Results US retroperitoneal complete (04/04/2014 3:45 PM EDT) Anatomical Region Laterality Modality Abdomen Ultrasound Specimen (Source) Anatomical Collection Method Collection Time Re ceived Time Location / / Volume Laterality 04/04/2014 3:45 PM EDT Narrative 04/04/2014 4:02 PM EDT Renal ?(Signed Final 04/04/2014 04:01 ? pm) Patient Info ID #: ? [id number] ?: ??[birth year] (63 yrs) Name: ? ELIDA DINH ?Visit Date: 04/04/2014 03:35 pm Performed By Performed By: ?El GONZALEZ, Josselin Associate: ? Barb DARDEN, Dane Attending: ? Breezy DARDEN, Oriana Ansari Referred By: ? HELEN JARA MD Service(s) Provided ??URETRO - Retroperitoneal Complete - [phone] [id number] ? [id number] Indications ??mass noted left kidney on MRI [...] I ??viewed the images and agree with gonzález shannon above interpretation. ?Oriana Tijerina MD Electronically Signed Final Report ?? 04:01 pm Film and interpretation reviewed by the attending Procedure Note Oriana Tijerina MD - 04/04/2014Forma tting of this note might be different from the original. Renal (Signed Final 04/04/2014 04:01 pm) Patient Info ID #: [id number] : [birth year] (63 y rs) Name: ELIDA DINH Visit Date: 014 03:35 pm Performed By Performed By: Josselin Gallegos RDMS Associate: Barb DARDEN, Dane Attending: Oriana Tijerina MD Referred By: HELEN JARA MD Service(s) Provided URETRO - Retroperitoneal Complete - [phone] [id number] Indications mass noted left kidney on MRI [...] reviewed by the attending Domingo Abdi MD IMG US GEN ORDERABLES documented in this encounter Visit Diagnoses Diagnosis Radiculopathy of lumbar region - Primary Thoracic or lumbosacral neuritis or radi culitis, unspecified Renal mass Unspecified disorder of kidney and urete r Renal mass Unspecified disorder of kidney and urete r documented in this encounter Care Teams Electronics Computer Mechanic Relationship Specialty Start Date End Date Shireen Montoya MD PCP - General 05/29/10 04/21/14 [address] [place] [address] documented as of this encounter
--- OUTSIDE RECORDS SUMMARY | 2021-12-28 04:11 | XMS_ITS | Encounter Summary ---
:1950 Author Organization [facility] [address] Care Team Providers Name Role Phone Shireen Montoya MD Primary Care Provider Encounter Details Date Type Department Care Team Description 04/05/2014 Telephone [facility] at [facility] [place] [address] Social History Tobacco Use Types Packs/Day Years Used Date Never Smoker Smokeless Tobacco: Never Used Sex Assigned at Date Recorded Not on file documented as of this encounter Miscellaneous Notes Telephone Encounter - Mendy Osullivan V - 04/07/2014 4:[address] safety questions entered documented in this encounter Plan of Treatment Not on filedocumented as of this encounter Visit Diagnoses Not on filedocumented in this encounter Care Teams Heater Worker Relationship Specialty Start Date End Date Shireen Montoya MD PCP - General 05/29/10 04/21/14 [address] [place] [address] documented as of this encounter
--- OUTSIDE RECORDS SUMMARY | 2021-12-28 04:11 | XMS_ITS | Encounter Summary ---
:1950 Author Organization [facility] Address [facility] [address] [place] [address] Care Team Providers Name Role Phone Allison Hector APRN Primary Care Provider [phone] Reason for Visit Reason Comments Gastroesophageal Reflux 2 week followup Insomnia stopped ambien, did not like it Encounter Details Date Type Department Care Team Description 12/19/2014 Follow-Up Internal Medicine at Allison Hector, Restless leg syndrome (Primary Dx); Renny Teague APRN Arthropathy of ankle and foot ; [address] [place] [address] GENERAL INTERNAL [phone] [place], [place] [address] (Wo rk) Social History Tobacco Use Types Packs/Day Years Used Date Never Smoker Smokeless Tobacco: Never Used Alcohol Use Standard Drinks/Week Comments No 0 (1 standard drink = 0.6 oz pure alcoho l) Sex Assigned at Date Recorded Not on file documented as of this encounter Last Filed Vital Signs Vital Sign Reading Time Taken Comments Blood Pressure 127/70 12/19/2014 9:18 AM EDT Pulse 69 12/19/2014 9:18 AM EDT Temperature 36.7 ??C (98.1 ??F) 12/19/2014 9:18 AM EDT Respiratory Rate - - Oxygen Saturation 99% 12/19/2014 9:18 AM EDT Inhaled Oxygen Concentration - - Weight 59.7 kg (131 lb 9.6 oz) 12/19/2014 9:18 AM EDT Height 154.9 cm (5' 1) 12/19/2014 9:18 AM EDT reported Body Mass Index 24.87 12/19/2014 9:18 AM EDT documented in this encounter Patient Instructions Patient InstructionsLaAllison jackson APRN - 12/19/2014 10:05 AM EDT Leg pain - Take magnesium tablet 120 mg/night. I would recommend magnesium glycinate if possible to help prevent stomach side effects. - Start the requip. F/u in about 4 weeks. documented in this encounter Progress Notes Allison Hector APRN - 12/19/2014 9:11 AM EDT PCP: ALLISON HECTOR APRN Chief Complaint Patient presents with ??? Gastroesophageal Reflux 2 week followup ??? Insomnia stopped ambien, did not like it SUBJECTIVE: Elida Montez is a 64 y.o. female who presents for follow up for her GERD and leg symptoms. GERD- at last visit we increase the omeprazole. She reports that it is much better with the omeprazole. It has helped. Headaches- She has had a few bad headaches. Insomnia- up much of the night with pain in her legs. Given prescription for ambien. _ she reports that she stopped the ambien because it was making her do weird things. - she has a had a lot of stress with her mother. Her mother's health is poor. She has CVA and strokerecently. Insomnia She is taking about an hour nap during the day and a couple of hours of sleep at night. She is still up much of the night pacing secondary to pain in her legs. She notices it more during the day as well if she is sitting for an extended period of time. Hand pain- it is a chronic ache in her hands. She reports that it is the whole hand. Some tingling in the the finger tips. Review of Systems Constitutional: Positive for fatigue. Negative for fever and chills. Gastrointestinal: Negative for nausea, vomiting and abdominal pain. Musculoskeletal: Positive for myalgias and arthralgias. Neurological: Positive for headaches. Psychiatric/Behavioral: Positive for sleep disturbance. Allergies Allergen Reactions ??? Codeine Nausea And Vomiting Current Outpatient Prescriptions Medication Sig Dispense Refill ??? omeprazole (PRILOSEC) 20 mg Capsule, Delayed [...] Apply 1 Application topically as needed. ??? ESOMEPRAZOLE MAGNESIUM (NEXIUM ORAL) Take 1 tablet by mouth daily. ??? albuterol (PROVENTIL HFA;VENTOLIN HFA) 90 mcg/actuation HFA Aerosol Inhaler Inhale 2 puffs into the lungs as needed. Use with spacer ??? rOPINIRole (REQUIP) 0.5 mg Tablet Take 1 tablet by mouth nightly. Take 0.25 mg nightly for 2 days, then 0.5 mg nightly x 1 week, and then 1 mg nightly x 1 week, then 1.5 mg nightly x 1 week, then 2mg nightly. 60 tablet 3 No current facility-administered medications for this visit. Patient Active Problem List Diagnosis Code ??? Radiculopathy of lumbar region 724.4 ??? Renal mass 593.9 ??? Neck pain 723.1 ??? Asthma 493.90 ??? Health care maintenance V70.0 ??? Pain in limb (LEG) 729.5 ??? Osteopenia 733.90 OBJECTIVE: Filed Vitals: 12/19/14 0918 BP: 127/70 Pulse: 69 Temp: 36.7 ??C (98.1 ??F) Height: 154.9 cm (5' 1) Weight: 59.693 kg (131 lb 9.6 oz) SpO2: 99% PHYSICAL EXAM: Physical Exam ASSESSMENT & PLAN: Elida was seen today for gastroesophageal reflux and insomnia. Diagnoses and associated orders for this visit: Restless leg syndrome - Iron and TIBC; Future - Ferritin; Future - reviewed old records and prior medications. She has been on klonopin, gabapentin, requip in the past. She was only on 1 mg requip nightly, will increase dose to 2 mg nightly with slow taper to see ifwill give some relief. Max dose is 4 mg daily - will recheck iron levels as well. - rOPINIRole (REQUIP) 0.5 mg Tablet; Take 1 tablet by mouth nightly. Take 0.25 mg nightly for 2 days, then 0.5 mg nightly x 1 week, and then 1 mg nightly x 1 week, then 1.5 mg nightly x 1 week, then 2 mg nightly. Arthropathy of ankle and foot - Iron and TIBC; Future Arthropathy - Ferritin; Future documented in this encounter Plan of Treatment Not on filedocumented as of this encounter Visit Diagnoses Diagnosis Restless leg syndrome - Primary Restless legs syndrome (RLS) Arthropathy of ankle and foot Unspecified arthropathy, ankle and foot Arthropathy Arthropathy, unspecified, site unspecifi ed documented in this encounter Care Teams Apns Relationship Specialty Start Date End Date Allison Hector APRN PCP - General 04/22/14 06/27/[address] [facility] [address] [place] [address] documented as of this encounter
--- OUTSIDE RECORDS SUMMARY | 2021-12-28 04:11 | XMS_ITS | Encounter Summary ---
:1950 Author Organization [facility] [place] [address] Care Team Providers Name Role Phone Allison Granados APRN Primary Care Provider [phone] Reason for Visit Reason Onset Date Comments Medication Refill 02/21/2015 Encounter Details Date Type Department Care Team Description 02/21/2015 Refill Internal Medicine at [facility] [address] [place] [address] Social History Tobacco Use Types Packs/Day Years [...] on filedocumented in this encounter Care Teams Mounter Smoking Pipe Relationship Specialty Start Date End Date Allison Granados APRN PCP - General 04/22/14 06/27/[address] [facility] [place] [address] documented as of this encounter
--- OUTSIDE RECORDS SUMMARY | 2021-12-28 04:11 | XMS_ITS | Encounter Summary ---
:1950 Author Organization [facility] [place] [address] Care Team Providers Name Role Phone Roberta, Allison Rain APRN Primary Care Provider [phone] Encounter Details Date Type Department Care Team Description 08/15/2010 Orders Only XRay at [facility] River Green MD [address] [place] [address] [place] [address] DIAGNOSIC RADIOLOGY [phone] [place], [place] [address] (Wo rk) Social History Tobacco Use Types Packs/Day Years Used Date Never Assessed Sex Assigned at Date Recorded Not on file documented as of this encounter Plan of Treatment Not on filedocumented as of this encounter Procedures Procedure Name Priority Date/Time Associated Diagnosis Comme nts FILM LIBRARY Routine 08/15/2010 11:15 AM Results for this STORAGE ONLY MAMMO EST procedure are in the results section. documented in this encounter Results Film Library- Storage only Mammo (08/15/2010 11:15 AM EST) Anatomical Region Laterality Modality Other Specimen (Source) Anatomical Collection Method Collection Time Re ceived Time Location / / Volume Laterality 08/15/2010 11:15 AM EST Narrative 02/06/2015 11:23 AM EDT This is a Non-reportable exam Procedure Note BEVERLEY, UNSIGNED REPORT - 02/06/2015Formatt ing of this note might be different from the original. This is a Non-reportable exam River Green MD [facility] FILM LIBRARY ORDERABLES documented in this encounter Visit Diagnoses Not on filedocumented in this encounter Care Teams Bariatric Nurse Relationship Specialty Start Date End Date Allison Granados, SOILA PCP - General 04/22/14 06/27/[address] [facility] [place] [address] documented as of this encounter
--- OUTSIDE RECORDS SUMMARY | 2021-12-28 04:11 | XMS_ITS | Encounter Summary ---
:1950 Author Organization [facility] [place] [address] Care Team Providers Name Role Phone Shireen Montoya MD Primary Care Provider Reason for Referral Physical Therapy (Routine) - Closed Specialty Diagnoses / Procedures Referred By Contact Refer red To Contact Physical Therapy Diagnoses Neck pain Helen Jara APRN [facility] Spine [facility] PAIN MEDICINE [id number] [place] [address] Referral ID Status Reason Start Date Expiration Date Visits V isits Requested Authorized [id number] Closed Evaluate and 04/21/2014 10/18/2014 12 12 Treat Reason for Visit Reason Comments Other follow up Encounter Details Date Type Department Care Team Description 04/21/2014 Office Visit [facility] at [facility] Renal m ass (Primary Dx); Nicolas CM Radiculopathy of lumbar region; [facility] [place] [facility] [place] PA[facility] MEDICINE [address] [place] [address] [phone] Social History Tobacco Use Types Packs/Day Years Used Date Never Smoker Smokeless Tobacco: Never Used Sex Assigned at Date Recorded Not on file documented as of this encounter Progress Notes Helen Jara APRN - 04/21/2014 12:03 PM EDT Chief complaint: Low back pain Subjective: Elida is here to followup on an epidural steroid injection which was done for her back symptoms. She had that done by Dr. Rivera in pain clinic in she's had a dramatic reduction in her backpain. She is also here to followup on the CT abdomen which was done after an incidental finding on her MRI of a atypical cyst in the left kidney. The renal ultrasound was inconclusive and the CT the abdomen was ordered for review. She does not have a primary care provider and so asked me to order it for her. She also complains of increasing neck pain that she is noticing now that her back doesn't hurt so much and she has burning feet at night Objective a reviewed her CT the abdomen with one of the neuroradiologists on the body team. The moreperipheral cyst and after looks like a cyst and the more central cyst looks like a little belated cyst however repeat imaging in 6 months was recommended. Regarding her neck pain, we briefly examined her neurologically and she has normal strength, sensation, and reflexes. There is no Zuniga or clonus she has bilateral positive Phalen's and Tinel's at the wrist. Assessment 1.: Likely left kidney cyst, repeat imaging ordered #2 low back pain improved after injection, #3 neck pain likely mechanical and #4 bilateral carpal tunnel syndrome Plan: Repeat a CT of the abdomen in 6 months. She would like to have this done here as well as she still doesn't have a PCP. #2 I've given her a copy of the telephone number to obtain a PCP here, #3 regarding her neck pain she will see a physical therapist, #4 regarding carpal tunnel syndrome she willobtain some bilateral wrist sprains and #5 she has gabapentin at home she is going to trial taking that at night to see if that helps her back pain, neck pain, carpal tunnel, burning feet. Followup will be after the [address] and regarding the other issues as needed. documented in this encounter Plan of Treatment Scheduled Referrals Name Type Priority Associated Diagnoses Order S chedule Referral to Outpatient Referral Routine Neck pain Ordered: Physical Therapy 04/21/2014 documented as of this encounter Visit Diagnoses Diagnosis Renal mass - Primary Unspecified disorder of kidney and urete r Radiculopathy of lumbar region Thoracic or lumbosacral neuritis or radi culitis, unspecified Neck pain Cervicalgia documented in this encounter Care Teams Manipulative Therapy Specialist Relationship Specialty Start Date End Date Shireen Montoya MD PCP - General 05/29/10 04/21/14 [address] [place] [address] documented as of this encounter
--- OUTSIDE RECORDS SUMMARY | 2021-12-28 04:11 | XMS_ITS | Encounter Summary ---
:1950 Author Organization [facility] [place] [address] Care Team Providers Name Role Phone Roberta, Allison Rain APRN Primary Care Provider [phone] Encounter Details Date Type Department Care Team Description 10/10/2006 Orders Only XRay at [facility] River Green MD [address] [place] [address] [place] [address] DIAGNOSIC RADIOLOGY [phone] [place], [place] [address] (Wo rk) Social History Tobacco Use Types Packs/Day Years Used Date Never Assessed Sex Assigned at Date Recorded Not on file documented as of this encounter Plan of Treatment Not on filedocumented as of this encounter Procedures Procedure Name Priority Date/Time Associated Diagnosis Comme nts FILM LIBRARY Routine 10/10/2006 11:15 AM Results for this STORAGE ONLY MAMMO EDT procedure are in the results section. documented in this encounter Results Film Library- Storage only Mammo (10/10/2006 11:15 AM EDT) Anatomical Region Laterality Modality Other Specimen (Source) Anatomical Collection Method Collection Time Re ceived Time Location / / Volume Laterality 10/10/2006 11:15 AM EDT Narrative 02/06/2015 11:21 AM EDT This is a Non-reportable exam Procedure Note BEVERLEY, UNSIGNED REPORT - 02/06/2015Formatt ing of this note might be different from the original. This is a Non-reportable exam River Green MD [facility] FILM LIBRARY ORDERABLES documented in this encounter Visit Diagnoses Not on filedocumented in this encounter Care Teams Industrial Economist Relationship Specialty Start Date End Date Allison Granados, ELECTRONIC SYSTEMS TECHNICIAN PCP - General 04/22/14 06/27/[address] [facility] [place] [address] documented as of this encounter
--- OUTSIDE RECORDS SUMMARY | 2021-12-28 04:11 | XMS_ITS | Encounter Summary ---
:1950 Author Organization [facility] Address [facility] [place] [address] Care Team Providers Name Role Phone Allison Hector ORGAN TUNER ELECTRONIC Primary Care Provider [phone] Reason for Visit Reason Comments Results CT.. spot on Kidney... Encounter Details Date Type Department Care Team Description 10/05/2014 Follow-Up Internal Medicine at Allison Hector Os teopenia; Celeste Ho Rain APRN Need for vaccination with 13-polyvalent pneumococcal conjugate vaccine; [address] [facility] [place] [address] GENERAL INTERNAL [phone] [place], [place] [address] (Wo rk) Social History Tobacco Use Types Packs/Day Years Used Date Never Smoker Smokeless Tobacco: Never Used Alcohol Use Standard Drinks/Week Comments No 0 (1 standard drink = 0.6 oz pure alcoho l) Sex Assigned at Date Recorded Not on file documented as of this encounter Last Filed Vital Signs Vital Sign Reading Time Taken Comments Blood Pressure 116/71 10/05/2014 10:15 AM EDT right ar m Pulse 85 10/05/2014 10:15 AM EDT Temperature 36.5 ??C (97.7 ??F) 10/05/2014 10:15 AM EDT Respiratory Rate 16 10/05/2014 10:15 AM EDT Oxygen Saturation 99% 10/05/2014 10:15 AM EDT Inhaled Oxygen Concentration - - Weight 58.1 kg (128 lb) 10/05/2014 10:15 AM EDT Height 154.9 cm (5' 1) 10/05/2014 10:15 AM EDT Body Mass Index 24.19 10/05/2014 10:15 AM EDT documented in this encounter Patient Instructions Patient InstructionsLaAllison jackson APRN - 10/05/2014 10:53 AM EDT - increase cymbalta to 60 mg daily. documented in this encounter Progress Notes Corin Mclean RN - 10/05/2014 10:50 AM EDT Prevnar-13 given left deltoid, info sheet given Allison Hector APRN - 10/05/2014 9:55 AM EDT PCP: ALLISON HECTOR APRN Chief Complaint Patient presents with ??? Results CT.. spot on Kidney... SUBJECTIVE: Elida Montez is a 64 y.o. female who presents for follow up for leg pain and renal mass. She had the Abdominal CT this morning for follow up on the renal mass. Leg pain- she reports that it is a little bit better. She has been taking the cymbalta for about a month and it has been effective. She still awakes at night with some bilateral ankle pain, but she is able to go back to sleep. She reports that she does not have the jumpy legs and pacing at night that she had in the past. Osteoporosis- she reports that she has had multiple fractures. - she has history of osteopenia since 2006. She is unsure when she stopped the fosamax. Review of Systems Constitutional: Negative for fever and chills. Respiratory: Negative for cough and shortness of breath. Allergies Allergen Reactions ??? Codeine Nausea And Vomiting Current Outpatient Prescriptions Medication Sig Dispense Refill ??? DULoxetine (CYMBALTA) 30 mg Capsule, Delayed Release(E.C.) Take 1 capsule by mouth daily. 30 tablet 11 ??? triamcinolone (KENALOG) 0.1 % Cream Apply 1 Application topically as needed. ??? fluticasone-salmeterol (ADVAIR DISKUS) 250-50 mcg/dose Disk with Device Inhale 1 puff into the lungs 2 times daily. 3 Inhaler 3 ??? ESOMEPRAZOLE MAGNESIUM (NEXIUM ORAL) Take 1 [...] V70.0 ??? Pain in limb (LEG) 729.5 OBJECTIVE: Filed Vitals: 10/05/14 1015 BP: 116/71 Pulse: 85 Temp: 36.5 ??C (97.7 ??F) TempSrc: Oral Resp: 16 Height: 154.9 cm (5' 1) Weight: 58.06 kg (128 lb) SpO2: 99% PHYSICAL EXAM: Physical Exam Constitutional: She is oriented to person, place, and time. She appears well- developed and well-nourished. HENT: Head: Normocephalic and atraumatic. Mouth/Throat: Oropharynx is clear and moist. No oropharyngeal exudate. Cardiovascular: Normal rate, regular rhythm and normal heart sounds. No murmur heard. Pulmonary/Chest: Effort normal and breath sounds normal. Musculoskeletal: Right ankle: Normal. Left ankle: Normal. Neurological: She is alert and oriented to person, place, and time. Skin: Skin is warm and dry. Psychiatric: She has a normal mood and affect. Her behavior is normal. Judgment and thought content normal. ASSESSMENT & PLAN: Elida was seen today for results. Diagnoses and associated orders for this visit: Osteopenia - Dexa central-spine, hip, and/or whole body; Future - will repeat dexa scan before considering further medications. Need for vaccination with 13-polyvalent pneumococcal conjugate vaccine - PNEUMOCOCCAL CONJUGATE VACCINE 13-VALENT Leg pain - Improved with cymbalta, will have increase to two tablets daily to see if symptoms improve. - DULoxetine (CYMBALTA) 30 mg Capsule, Delayed Release(E.C.); Take 2 capsules by mouth daily. Renal Mass - will f/u with patient when we have the results documented in this encounter Plan of Treatment Not on filedocumented as of this encounter Results Dexa central-spine, hip, and/or [...] measurements a nd plots are available in [employer] under the imaging tab. Paper copies will be sent to providers without E-DH access. If you have received this report without th e data sheet and do not have access to [employer], please contact Radiology Transcrip tion at [phone] Friday thru Friday 8am-4pm. Narrative 10/11/2014 4:39 [...] Scans were acquired at the mbar spine, and left hip. COMPARISON: none [...] This is available through an interactive web-based [employer] (http://www.shef.ac.uk/FRAX/) and can be used to [...] measurements a nd plots are available in [employer] under the imaging tab. Paper copies will be sent to providers without E-DH access. If you have received this report without th e data sheet and do not have access to [employer], please contact Radiology Transcrip tion at [phone] Friday thru Friday 8am-4pm. Lorri Moran MD IMG DEXA ORDERABLES documented in this encounter Visit Diagnoses Diagnosis Osteopenia Disorder of bone and cartilage, unspecif ied Need for vaccination with 13-polyvalent pneumococcal conjugate vaccine Health care maintenance Unspecified general medical examination Osteopenia Disorder of bone and cartilage, unspecif ied documented in this encounter Care Teams Pearl Hand Relationship Specialty Start Date End Date Allison Hector APRN PCP - General 04/22/14 06/27/[address] [facility] [address] [place] [address] documented as of this encounter
--- OUTSIDE RECORDS SUMMARY | 2021-12-28 04:11 | XMS_ITS | Encounter Summary ---
:1950 Author Organization [facility] [place] [address] Care Team Providers Name Role Phone Shireen Montoya MD Primary Care Provider Encounter Details Date Type Department Care Team Description 04/07/2014 Telephone Pain Management at [facility], [place] [address] Social History Tobacco Use Types Packs/Day Years Used Date Never Smoker Smokeless Tobacco: Never Used Sex Assigned at Date Recorded Not on file documented as of this encounter Miscellaneous Notes Telephone Encounter - Deandra Shepherd LPN - 04/07/2014 10:05 AM EDT Elida Montez :1950 Contact made with patient: I spoke to Ms. Montez at 10:05 AM regarding her upcoming lumbar epidural steroid injection scheduled on 04/08/14 (date) scheduled at 0830 (time) with Dr. Marco Kingsley MD. Medication and Allergy reconciliation: 1. Changes were made in the telephone encounter per patient; marked as reviewed, and closed. 2. Patient confirmed no IVP dye allergy. 3. Have you had any steroid injections anywhere in your body within the last two weeks? no Arrival time: The patient was instructed to arrive at 0800 (30 minutes prior to procedure start time - 60 minutes prior for RF patients with a pacemaker) on 04/08 (date of procedure). Senior Mechanical Designer: The patient was reminded that they need to have a stage driver accompany them to her procedure who will remain onsite. Antibiotics/Skin assessment/Illness symptoms/Pain level assessment : 1. The patient confirmed that she is not taking antibiotics at this time. 2. The patient confirmed that she does not have any rashes, blisters, or skin breakdown on their body. 3. The patient confirmed that she does not have any active infections. 4. The patient confirmed that she does not have any symptoms of illness: fever, chills, cold, flu, nausea, vomiting. 5. The patient confirmed that she isstill experiencing significant pain. (Significant pain is defined as interfering with performing ADL.) Pain and Anti-anxiety Medications: 1. Nerve Block Procedure Patients: Patient was instructed NOT to take their pain medications on the day of the procedure and anti-anxiety medications are part of their daily medication regiment; they can and should continue taking that medication. 2. All Other Procedure Patients: The patient was instructed that if they take daily pain or anti-anxiety medications, they can and should continue taking on the day of the procedure. Does patient have history of any diagnosed bleeding disorders: No Anticoagulants: No Implant: Patient has pacemaker/defibrillator: No Prior to checking in at [employer], please be sure to empty your bladder. Patient confirmed understanding that if they do not follow the above their instructions, their procedure is likely to be cancelled. Deandra Shepherd LPN documented in this encounter Plan of Treatment Not on filedocumented as of this encounter Visit Diagnoses Not on filedocumented in this encounter Care Teams Loan Servicing Officer Relationship Specialty Start Date End Date Shireen Montoya MD PCP - General 05/29/10 04/21/14 [address] [place] [address] documented as of this encounter
--- OUTSIDE RECORDS SUMMARY | 2021-12-28 04:11 | XMS_ITS | Encounter Summary ---
:1950 Author Organization [facility] Address [address] [place] [address] Care Team Providers Name Role Phone Allison Hector RESTORATIVE ART EMBALMER Primary Care Provider Reason for Visit Reason Comments Hernia right side of stomach, was h aving bowel movement, someting went up right side and can move it with hand Encounter Details Date Type Department Care Team Description 11/15/2014 Follow-Up Internal Medicine at Allison Hector, Right upper quadrant pain; [address] [place] [address] RESTORATIVE ART EMBALMER Pain in joint of left ankle or foot [address] [place] [address] GENERAL INTERNAL [phone] [place], [place] [address] (Wo rk) Social History Tobacco Use Types Packs/Day Years Used Date Never Smoker Smokeless Tobacco: Never Used Alcohol Use Standard Drinks/Week Comments No 0 (1 standard drink = 0.6 oz pure alcoho l) Sex Assigned at Date Recorded Not on file documented as of this encounter Last Filed Vital Signs Vital Sign Reading Time Taken Comments Blood Pressure 117/76 11/15/2014 10:45 AM EDT Pulse 79 11/15/2014 10:45 AM EDT Temperature 36.6 ??C (97.9 ??F) 11/15/2014 10:45 AM EDT Respiratory Rate - - Oxygen Saturation 97% 11/15/2014 10:45 AM EDT Inhaled Oxygen Concentration - - Weight 59.7 kg (131 lb 9.6 oz) 11/15/2014 10:45 AM EDT Height 154.9 cm (5' 1) 11/15/2014 10:45 AM EDT Body Mass Index 24.87 11/15/2014 10:45 AM EDT documented in this encounter Progress Notes Allison Hector APRN - 11/15/2014 10:48 AM EDT Images from the original note were not included. PCP: ALLISON HECTOR APRN Chief Complaint Patient presents with ??? Hernia right side of stomach, was having bowel movement, someting went up right side and can move it with hand SUBJECTIVE: Elida Montez is a 64 y.o. female who presents for right upper quadrant pain that has been oing for a few weeks. She reports that she has pain in her mid upper abdomen. She reports that it hurt when she went to the bathroom and when she bends over. Not associated with eating. She has history gallbladder surgery in the past. . She states that she can feel an area of discomfort. Pain is worse with bending over andimproved with straightening up. She reports that she will try to push or hold the area until it goesaway. She reports that she has had the pain for the last few weeks. - She has the pain every day. - improved with standing. Review of Systems Constitutional: Positive for diaphoresis (at night). Negative for fever and chills. Gastrointestinal: Positive for abdominal pain, constipation and abdominal distention. Negative for nausea, vomiting, diarrhea and blood in stool. - she reports that she wakes up and is soaked. - medications is not helping her legs. She reports that she is not sleeping well anymore. Allergies Allergen Reactions ??? Codeine Nausea And Vomiting Current Outpatient Prescriptions Medication Sig Dispense Refill ??? Budesonide-Formoterol 160-4.5 mcg/actuation HFA Aerosol Inhaler Inhale 1 puff into the lungs 2 times daily. 1 Inhaler 12 ??? ibandronate (BONIVA) 150 mg Tablet Take 1 tablet by mouth every 30 days. Take in AM with full glass of water, on an empty stomach. Do not lie down for 30 min. 1 tablet 12 ??? DULoxetine (CYMBALTA) 30 mg Capsule, Delayed Release(E.C.) Take 2 capsules by mouth daily. 60 tablet 11 ??? triamcinolone (KENALOG) 0.1 % [...] 729.5 ??? Osteopenia 733.90 OBJECTIVE: Filed Vitals: 11/15/14 1045 BP: 117/76 Pulse: 79 Temp: 36.6 ??C (97.9 ??F) Height: 154.9 cm (5' 1) Weight: 59.693 kg (131 lb 9.6 oz) SpO2: 97% PHYSICAL EXAM: Physical Exam Constitutional: She appears well-developed and well-nourished. HENT: Head: Normocephalic and atraumatic. Mouth/Throat: Oropharynx is clear and moist. Eyes: Conjunctivae are normal. Cardiovascular: Normal rate, regular rhythm and normal heart sounds. Pulmonary/Chest: Effort normal and breath sounds normal. Abdominal: Soft. Bowel sounds are normal. She exhibits no distension and no mass. There is no hepatosplenomegaly. There is tenderness in the right upper quadrant. There is no rebound, no guarding and no CVA tenderness. No hernia. Skin: Skin is warm and dry. No rash noted. Psychiatric: She has a normal mood and affect. Her behavior is normal. Judgment and thought content normal. ASSESSMENT & PLAN: Elida was seen today for hernia. Diagnoses and associated orders for this visit: Right upper quadrant pain - CBC (with Diff); Future - Comprehensive metabolic panel (non-fasting); Future - Lipase; Future - CBC (with Diff) - Comprehensive metabolic panel (non-fasting) - Lipase - Hemogram - Differential, Automated - considered imaging with US or CT, but patient recently had CT on October 05 and was stable - no pain at that time. - will check labs and if abnormal, will do further imaging Pain in joint of left ankle or foot - *XR generic ankle; Future - chronic leg pain that starts in left ankle and radiates, worse with resting; unable to sleep secondary to the pain. Addendum: - Labs showed elevated LFTs. Patient to stop cymbalta as has 1% risk of hepatitis - will check hepatitis labs, recheck LFts in few days and do RUQ US = patient in agreement with the plan. documented in this encounter Plan of Treatment Not on filedocumented as of this encounter Procedures Procedure Name Priority Date/Time Associated Comments Diagnosis HEMOGRAM STAT 11/15/2014 11:07 Right upper Results for this AM EDT quadrant pain procedure are in the results section. DIFFERENTIAL, STAT 11/15/2014 11:07 Right upper Results fo r this AUTOMATED AM EDT quadrant pain procedure are in the results section. CBC (WITH DIFF) STAT 11/15/2014 11:07 Right upper AM EDT quadrant pain LIPASE STAT 11/15/2014 11:07 Right upper Results for this AM EDT quadrant pain procedure are in the results section. COMPREHENSIVE STAT 11/15/2014 11:07 Right upper Results fo r this METABOLIC PANEL AM EDT quadrant pain procedure a re in (NON-FASTING) the results section. documented in this encounter Results (ABNORMAL) Differential, Automated (11/15/2014 11:07 AM EDT) [facility] gist Method Time Signature Neutrophils % 50.7 % CERNER MILLENNIUM Neutr Abs (ANC) 4.15 1.50 - CERNER 6.30 MILLENNIUM x10(3)/mcL Lymphocytes % 28.6 % CERNER MILLENNIUM Lymphocytes Abs 2.3 1.0 - 3.6 CERNER x10(3)/mcL MILLENNIUM Monocytes % 15.3 % CERNER MILLENNIUM Monocyte Abs 1.2 (H) 0.2 - 1.0 CERNER x10(3)/mcL MILLENNIUM Eosinophils % 3.7 % CERNER MILLENNIUM Eosinophils Abs 0.3 0.0 - 0.5 CERNER x10(3)/mcL MILLENNIUM Basophils % 1.1 % CERNER MILLENNIUM Basophils Abs 0.1 0.0 - 0.2 CERNER x10(3)/mcL MILLENNIUM Immature Gran % 0.60 % CERNER MILLENNIUM Comment: Immature granulocytes(IG's)percentage an d absolute count will include metamyelocytes, myelocytes, and promyelo cytes. Blood smears from CBCs yielding IG's will be scanned manually for concor dance. If this scan disagrees with the automated IG or if promyelocytes are not ed, a manual differential will be performed. Zena Gran Abs 0.05 0.00 - 0.05 x10(3)/mcL CER NER MILLENNIUM Specimen Anatomical Collection Method Collection Time Receive d Time (Source) Location / / Volume Laterality Blood specimen 11/15/2014 11:07 5 (specimen) AM EDT 12:57 PM EDT Resulting Agency Comment Spec In Lab Corin Montoya MD HEMATOLOGY ORDERABLES Performing Organization Address City/State/ZIP Code Phon e Number [place] [phone] CERNER MILLENNIUM (ABNORMAL) Hemogram (11/15/2014 11:07 AM EDT) P athologist Signature WBC 8.2 4.0 - 10.0 CERNER x10(3)/mcL MILLENNIUM RBC 5.19 3.93 - CERNER 5.22 MILLENNIUM x10(6)/mcL Hemoglobin 14.7 11.2 - CERNER 15.7 gm/dL MILLENNIUM Hematocrit 44.1 34.0 - CERNER 45.0 % MILLENNIUM MCV 85.0 79.0 - CERNER 94.0 fL MILLENNIUM MCH 28.3 26.6 - CERNER 32.2 pg MILLENNIUM MCHC 33.3 32.0 - CERNER 36.5 gm/dL MILLENNIUM Platelets 371 (H) 145 - 370 CERNER x10(3)/mcL MILLENNIUM RDWSD 47.9 (H) 35.0 - CERNER 46.0 fL MILLENNIUM RDWCV 15.4 (H) 10.9 - CERNER 14.4 % MILLENNIUM MPV 10.4 9.0 - 12.0 CERNER fL MILLENNIUM Specimen Anatomical Collection Method Collection Time Receive d Time (Source) Location / / Volume Laterality Blood specimen 11/15/2014 11:07 5 (specimen) AM EDT 12:57 PM EDT Resulting Agency Comment Spec In Lab Corin Montoya MD HEMATOLOGY ORDERABLES Performing Organization Address City/[facility]/[place]IP [place] [address] CERNER MILLENNIUM Lipase (11/15/2014 11:07 AM EDT) athologist Signature Lipase 18 0 - 60 CERNER unit/L MILLENNIUM Specimen Anatomical Collection Method Collection Time Receive d Time (Source) Location / / Volume Laterality Blood specimen 11/15/2014 11:07 5 (specimen) AM EDT 12:57 PM EDT Resulting Agency Comment Spec In Lab Corin Montoya MD CHEMISTRY ORDERABLES Performing Organization Address City/[facility] Phon e Number [address] CERNER MILLENNIUM (ABNORMAL) Comprehensive metabolic panel (non-fasting) (11/15/2014 11:07 AM EDT) athologist Signature Glucose Lvl 101 60 - 199 CERNER mg/dL MILLENNIUM Comment: Diabetes: >=200 mg/dL plus symp toms BUN 14 8 - 18 mg/dL CERNER MILLENNIUM Creatinine 0.71 0.70 - 1.20 mg/dL CERNER MILL ENNIUM Comment: Please note that the pediatric reference intervals supplied above were not validated at [facility]. Results from pediatri c patients should be interpreted in conjunction to the patient's age, height and muscle mass. Sodium 140 135 - 145 mmol/L CERNER GIAN NIUM Potassium 4.4 3.5 - 5.0 mmol/L CERNER GIAN NIUM Comment: Please note: ??Patients with WBC >100,00 0 may have falsely elevated Potassium levels. ??For accurate Potassium quantif ication in these patients send serum separator tube (gold top) for subsequent determinations. ??Contact the Clinical Chemistry Laboratory if there are any qu estions. Chloride 102 98 - 107 mmol/L CERNER MILLENN IUM CO2 23 22 - 31 mmol/L CERNER MILLENNI UM Anion Gap 15 5 - 15 mmol/L CERNER MILLENNIU M Calcium 9.1 8.5 - 10.5 mg/dL CERBANNER GIAN NIUM Total Protein 7.1 6.1 - 8.0 gm/dL CERBANNER MIL LENNIUM Albumin 4.3 3.2 - 5.2 gm/dL CERNER MILLENN IUM AST 42 (H) 0 - 30 unit/L CERNER MILLENNIU M ALT 62 (H) 0 - 30 unit/L CERNER MILLENNIU M Alk Phos 117 (H) 40 - 104 unit/L CERNER MILLENN IUM Total Bilirubin 0.8 0.2 - 1.3 mg/dL [facility] M ILLENNIUM Bili, Direct 0.1 0.0 - [...] the following links into your internet browser. [email or web address] [email or web address] Specimen Anatomical Collection Method Collection Time Receive d Time (Source) Location / / Volume Laterality Blood specimen 11/15/2014 11:07 5 (specimen) AM EDT 12:57 PM EDT Resulting Agency Comment Spec In Lab Corin Montoya MD CHEMISTRY ORDERABLES Performing Organization Address City/State/[place] [address] CERNER MILLENNIUM documented in this encounter Visit Diagnoses Diagnosis Right upper quadrant pain Abdominal pain, right upper quadrant Pain in joint of left ankle or foot Pain in joint, ankle and foot documented in this encounter Care Teams Redipper Relationship Specialty Start Date End Date Allison Hector, SOILA PCP - General 04/22/14 06/27/[address] [facility] [address] [place] [address] documented as of this encounter
--- OUTSIDE RECORDS SUMMARY | 2021-12-28 04:11 | XMS_ITS | Encounter Summary ---
:1950 Author Organization [facility] [place] [address] Care Team Providers Name Role Phone Allison Granados APRN Primary Care Provider [phone] Encounter Details Date Type Department Care Team Description 11/15/2014 Hospital Encounter XRay at [facility] Pain in joint of left [address] [place] [address] [place] [address] Social History Tobacco Use Types Packs/Day Years Used Date Never Smoker Smokeless Tobacco: Never Used Alcohol Use Standard Drinks/Week Comments No 0 (1 standard drink = 0.6 oz pure alcoho l) Sex Assigned at Date Recorded Not on file documented as of this encounter Medications at Time of Discharge Medication Sig Dispensed Refills Start Date End Date Budesonide-Formoterol Inhale 1 puff into 1 Inhaler 12 201411/09/2015 160-4.5 mcg/actuation the lungs 2 times HFA Aerosol Inhaler daily. ibandronate (BONIVA) 150 Take 1 tablet by 1 tablet 12 10/2011/01/2015 mg Tablet mouth every 30 days. Take in AM with full glass of water, on an empty stomach. Do not lie down for 30 min. DULoxetine (CYMBALTA) 30 Take 2 capsules by 60 tablet 07/201412/01/2014 mg Capsule, Delayed mouth daily. Release(E.C.) triamcinolone (KENALOG) Apply 1 Application 0 10/30/2015 0.1 % Cream topically as needed. ESOMEPRAZOLE MAGNESIUM Take 1 tablet by 0 01/23/2015 (NEXIUM ORAL) mouth daily. albuterol (PROVENTIL Inhale 2 puffs into 0 05/04/2015 HFA;VENTOLIN HFA) 90 the lungs as needed. mcg/actuation HFA Use with spacer Aerosol Inhaler documented as of this encounter Plan of Treatment Not on filedocumented as of this encounter Procedures Procedure Name Priority Date/Time Associated Diagnosis Comme nts XR ANKLE MINIMUM 3 Routine 11/15/2014 12:17 PM Re sults for this VIEWS EDT procedure are i n the results section. documented in this encounter Results XR ankle minimum 3 views (11/15/2014 12:17 PM EDT) Anatomical Region Laterality Modality Ankle N/A Radiographic Imaging Specimen (Source) Anatomical Collection Method Collection Time Re ceived Time Location / / Volume Laterality 11/15/2014 12:17 PM EDT Impressions 11/15/2014 1:56 PM EDT IMPRESSION: No acute osseous abnormalities. Narrative 11/15/2014 1:56 PM EDT EXAMINATION: ANKLE MIN 3 VIEWS/LEFT CLINICAL HISTORY: left ankle pain- worse at night, will wake from sleep TECHNIQUE: Frontal, oblique, and standin g weightbearing lateral views of the left foot. COMPARISON: None FINDINGS: Normal bony mineralization and alignment . Procedure Note River Green MD - 11/15/2014Format ting of this note might be different from the original. EXAMINATION: ANKLE MIN 3 VIEWS/LEFT CLINICAL HISTORY: left ankle pain- worse at night, will wake from sleep TECHNIQUE: Frontal, oblique, and standin g weightbearing lateral views of the left foot. COMPARISON: None FINDINGS: Normal bony mineralization and alignment . IMPRESSION IMPRESSION: No acute osseous abnormalities. Corin Montoya MD IMG DX ORDERABLES documented in this encounter Visit Diagnoses Diagnosis Pain in joint of left ankle or foot Pain in joint, ankle and foot documented in this encounter Care Teams Machinery Engineer Relationship Specialty Start Date End Date Allison Granados APRN PCP - General 04/22/14 06/27/[address] [facility] [address] [place] [address] documented as of this encounter
--- OUTSIDE RECORDS SUMMARY | 2021-12-28 04:11 | XMS_ITS | Encounter Summary ---
:1950 Author Organization [facility] [place] [address] Care Team Providers Name Role Phone Allison Hector APRN Primary Care Provider [phone] Reason for Visit Reason Comments Referral sleep study, have not been genaro koroma Encounter Details Date Type Department Care Team Description 09/02/2014 Office Visit Internal Medicine at RobertaAllison shannon count [facility] W, SOILA bilateral legs [address] [place] [address] GENERAL INTERNAL [phone] [facility], [place] [address] (Wo rk) Social History Tobacco Use Types Packs/Day Years Used Date Never Smoker Smokeless Tobacco: Never Used Alcohol Use Standard Drinks/Week Comments No 0 (1 standard drink = 0.6 oz pure alcoho l) Sex Assigned at Date Recorded Not on file documented as of this encounter Last Filed Vital Signs Vital Sign Reading Time Taken Comments Blood Pressure 121/71 09/02/2014 1:55 PM EST Pulse 88 09/02/2014 1:55 PM EST Temperature 36.7 ??C (98 ??F) 09/02/2014 1:55 PM EST Respiratory Rate - - Oxygen Saturation 98% 09/02/2014 1:55 PM EST Inhaled Oxygen Concentration - - Weight 59.4 kg (131 lb) 09/02/2014 1:55 PM EST Height 154.9 cm (5' 1) 09/02/2014 1:55 PM EST Body Mass Index 24.75 09/02/2014 1:55 PM EST documented in this encounter Progress Notes Allison Hector APRN - 09/02/2014 2:14 PM EST PCP: ALLISON HECTOR APRN Chief Complaint Patient presents with ??? Referral sleep study, have not been sleeping SUBJECTIVE: Elida Montez is a 63 y.o. female who presents for difficulty with sleeping. She reports that she sleeps for about an hour and then she wakes up. She states that she does no feel that she is concerned about driving for long distances. - She is able to fall asleep. She reports that it is the pain in her feet and legs that wake her up. She may take a nap during the day. She will then walk around the house. She will do stuff around thehouse and read. She reports that she is able to put up with the pain during the day, but at the night. Review of Systems Constitutional: Negative for fever and chills. Musculoskeletal: Positive for myalgias. Negative for back pain, gait problem and neck pain. Neurological: Negative for dizziness and light-headedness. Psychiatric/Behavioral: Positive for sleep disturbance (secondary to leg pain). Allergies Allergen Reactions ??? Codeine Nausea And Vomiting Current Outpatient Prescriptions Medication Sig Dispense Refill ??? amitriptyline (ELAVIL) 10 mg Tablet Take 1 tablet by mouth nightly. May increase to 2 tablet at bedtime in 1 week. 60 tablet 2 ??? triamcinolone (KENALOG) 0.1 % Cream Apply [...] the lungs as needed. Use with spacer Current Facility-Administered Medications Medication Dose Route Frequency [...] in limb (LEG) 729.5 OBJECTIVE: Filed Vitals: 09/02/14 1355 BP: 121/71 Pulse: 88 Temp: 36.7 ??C (98 ??F) Height: 154.9 cm (5' 1) Weight: 59.421 kg (131 lb) SpO2: 98% PHYSICAL EXAM: Physical Exam Constitutional: She is oriented to person, place, and time. She appears well- developed and well-nourished. HENT: Head: Normocephalic and atraumatic. Eyes: Conjunctivae are normal. No scleral icterus. Cardiovascular: Normal rate, regular rhythm, normal heart sounds and intact distal pulses. Pulses: Dorsalis pedis pulses are 2+ on the right side, and 2+ on the left side. Posterior tibial pulses are 2+ on the right side, and 2+ on the left side. Pulmonary/Chest: Effort normal. Neurological: She is alert and oriented to person, place, and time. Skin: Skin is warm and dry. Psychiatric: She has a normal mood and affect. Her behavior is normal. Judgment and thought content normal. ASSESSMENT & PLAN: Elida was seen today for referral. Diagnoses and associated orders for this visit: Paresthesia of bilateral legs - Patient has been seen by neurology and ortho for problem in past - do not think that it is related to restless leg. Will try patient on cymbalta as lyrica and gabapentin have not been helpful in the past. - if cymbalta is not effective will consider referral to sleep medicine. - DULoxetine (CYMBALTA) 30 mg Capsule, Delayed Release(E.C.); Take 1 capsule by mouth daily. documented in this encounter Plan of Treatment Not on filedocumented as of this encounter Visit Diagnoses Diagnosis Paresthesia of bilateral legs Disturbance of skin sensation documented in this encounter Care Teams Stone Gang Sawyer Relationship Specialty Start Date End Date Allison Hector APRN PCP - General 04/22/14 06/27/[address] [facility] [place] [address] documented as of this encounter
--- OUTSIDE RECORDS SUMMARY | 2021-12-28 04:11 | XMS_ITS | Encounter Summary ---
:1950 Author Organization [facility] [place] [address] Care Team Providers Name Role Phone Shireen Montoya MD Primary Care Provider Encounter Details Date Type Department Care Team Description 04/08/2014 Telephone Spine Center at [facility] [place] [address] Social History Tobacco Use Types Packs/Day Years Used Date Never Smoker Smokeless Tobacco: Never Used Sex Assigned at Date Recorded Not on file documented as of this encounter Miscellaneous Notes Telephone Encounter - Mendy Osullivan V - 04/08/2014 8:39 AM EDT Spoke to pt, let her know about her upcoming appts. documented in this encounter Plan of Treatment Not on filedocumented as of this encounter Visit Diagnoses Not on filedocumented in this encounter Care Teams Intake Specialist Relationship Specialty Start Date End Date Shireen Montoya MD PCP - General 05/29/10 04/21/14 [address] [place] [address] documented as of this encounter
--- OUTSIDE RECORDS SUMMARY | 2021-12-28 04:11 | XMS_ITS | Encounter Summary ---
:1950 Author Organization [facility] [place] [address] Care Team Providers Name Role Phone Allison Hector APRN Primary Care Provider [phone] Reason for Visit Reason Onset Date Comments Prior Authorization 10/17/2014 Encounter Details Date Type Department Care Team Description 10/17/2014 Telephone Internal Medicine at [place] Deena Vora Prior Authorization [address] [place] [address] Social History Tobacco Use Types Packs/Day Years Used Date Never Smoker Smokeless Tobacco: Never Used Alcohol Use Standard Drinks/Week Comments No 0 (1 standard drink = 0.6 oz pure alcoho l) Sex Assigned at Date Recorded Not on file documented as of this encounter Miscellaneous Notes Addendum Note - Allison Hector APRN - 10/20/2014 11:39 AM EDT Addended by: ALLISON HECTOR on: 10/20/2014 11:39 AM Modules accepted: Orders Addendum Note - Corin Mclean RN - 10/19/2014 11:13 AM EDT Addended by: CORIN MCLEAN on: 10/19/2014 11:13 AM Modules accepted: Orders, Medications Telephone Encounter - Corin Mclean RN - 10/19/2014 11:04 AM EDT Patient informed of non-coverage of Advair and Actonel. She is agreeable with alternatives of symbicort and Boniva. Prescriptions forwarded to Allison Hector. Telephone Encounter - Corin Mclean RN - 10/18/2014 3:50 PM EDT TC to [facility]. Accepted alternatives will be reviewed with provider. Telephone Encounter - Corin Mclean RN - 10/18/2014 3:11 PM EDT TC to [facility]. Advair and risedronate not covered. Pharmacist will fax information. Telephone Encounter - Corin Mclean RN - 10/17/2014 2:49 PM EDT TC to [facility] to request PA information Telephone Encounter - Deena Montez - 10/17/2014 2:13 PM EDT Pt needs a prior auth for her advair and her risedronate. documented in this encounter Plan of Treatment Not on filedocumented as of this encounter Visit Diagnoses Not on filedocumented in this encounter Care Teams Computer Service Technician Relationship Specialty Start Date End Date Allison Hector APRN PCP - General 04/22/14 06/27/[address] [facility] [address] [place] [address] documented as of this encounter
--- OUTSIDE RECORDS SUMMARY | 2021-12-28 04:11 | XMS_ITS | Encounter Summary ---
:1950 Author Organization [facility] [place] [address] Care Team Providers Name Role Phone Roberta, Allison Rain APRN Primary Care Provider [phone] Encounter Details Date Type Department Care Team Description 03/02/2008 Orders Only XRay at [facility] River Green MD [address] [place] [address] [place] [address] DIAGNOSIC RADIOLOGY [phone] [place], [place] [address] (Wo rk) Social History Tobacco Use Types Packs/Day Years Used Date Never Assessed Sex Assigned at Date Recorded Not on file documented as of this encounter Plan of Treatment Not on filedocumented as of this encounter Procedures Procedure Name Priority Date/Time Associated Diagnosis Comme nts FILM LIBRARY Routine 03/02/2008 11:15 AM Results for this STORAGE ONLY MAMMO EDT procedure are in the results section. documented in this encounter Results Film Library- Storage only Mammo (03/02/2008 11:15 AM EDT) Anatomical Region Laterality Modality Other Specimen (Source) Anatomical Collection Method Collection Time Re ceived Time Location / / Volume Laterality 03/02/2008 11:15 AM EDT Narrative 02/06/2015 11:22 AM EDT This is a Non-reportable exam Procedure Note BEVERLEY, UNSIGNED REPORT - 02/06/2015Formatt ing of this note might be different from the original. This is a Non-reportable exam River Green MD [facility] [place] FILM LIBRARY ORDERABLES documented in this encounter Visit Diagnoses Not on filedocumented in this encounter Care Teams Relocation Associate Relationship Specialty Start Date End Date [place] Granados, RECORD RETRIEVAL SPECIALIST PCP - General 04/22/14 06/27/[address] [facility] [place] [address] documented as of this encounter
--- OUTSIDE RECORDS SUMMARY | 2021-12-28 04:11 | XMS_ITS | Encounter Summary ---
:1950 Author Organization [facility] [place] [address] Care Team Providers Name Role Phone Roberta, [place] Rain APRN Primary Care Provider [phone] Encounter Details Date Type Department Care Team Description 11/12/2012 Orders Only XRay at [facility] River Green MD [address] [place] [address] [place] [address] DIAGNOSIC RADIOLOGY [phone] [place], [place] [address] (Wo rk) Social History Tobacco Use Types Packs/Day Years Used Date Never Assessed Sex Assigned at Date Recorded Not on file documented as of this encounter Plan of Treatment Not on filedocumented as of this encounter Procedures Procedure Name Priority Date/Time Associated Diagnosis Comme nts FILM LIBRARY Routine 11/12/2012 11:15 AM Results for this STORAGE ONLY MAMMO EDT procedure are in the results section. documented in this encounter Results Film Library- Storage only Mammo (11/12/2012 11:15 AM EDT) Anatomical Region Laterality Modality Other Specimen (Source) Anatomical Collection Method Collection Time Re ceived Time Location / / Volume Laterality 11/12/2012 11:15 AM EDT Narrative 02/06/2015 11:31 AM EDT This is a Non-reportable exam Procedure Note BEVERLEY, UNSIGNED REPORT - 02/06/2015Formatt ing of this note might be different from the original. This is a Non-reportable exam River Green MD [facility] [place] FILM LIBRARY ORDERABLES documented in this encounter Visit Diagnoses Not on filedocumented in this encounter Care Teams Special Services Agent Relationship Specialty Start Date End Date [place] Granados, FUDGE CANDY MAKER PCP - General 04/22/14 06/27/[address] [facility] [place] [address] documented as of this encounter
--- OUTSIDE RECORDS SUMMARY | 2021-12-28 04:11 | XMS_ITS | Encounter Summary ---
:1950 Author Organization [facility] [place] [address] Care Team Providers Name Role Phone [place] Granados APRN Primary Care Provider [phone] Reason for Visit Reason Onset Date Comments Results 05/18/2014 Encounter Details Date Type Department Care Team Description 05/18/2014 Telephone Internal Medicine at [facility] Deena Vora Results [address] [place], [place] [id number] Social History Tobacco Use Types Packs/Day Years Used Date Never Smoker Smokeless Tobacco: Never Used Alcohol Use Standard Drinks/Week Comments No 0 (1 standard drink = 0.6 oz pure alcoho l) Sex Assigned at Date Recorded Not on file documented as of this encounter Miscellaneous Notes Telephone Encounter - Corin Mclean RN - 05/18/2014 11:49 AM EST Labs reviewed with patient. Tried Lyrica, and had heartburn so bad night and day despite tums etc she stopped it; wanted Leta to know. Telephone Encounter - Deena Montez - 05/18/2014 10:26 AM EST Pt would like the results of her lab test. documented in this encounter Plan of Treatment Not on filedocumented as of this encounter Visit Diagnoses Not on filedocumented in this encounter Care Teams Sports Medicine Coordinator Relationship Specialty Start Date End Date [place] Granados APRN PCP - General 04/22/14 06/27/[address] [facility] [place] [address] documented as of this encounter
--- OUTSIDE RECORDS SUMMARY | 2021-12-28 04:11 | XMS_ITS | Encounter Summary ---
:1950 Author Organization [facility] [place] [address] Care Team Providers Name Role Phone Roberta, [place] Rain APRN Primary Care Provider [phone] Encounter Details Date Type Department Care Team Description 08/22/2010 Orders Only XRay at [facility] River Green MD [address] [place] [address] [place] [address] DIAGNOSIC RADIOLOGY [phone] [place], [place] [address] (Wo rk) Social History Tobacco Use Types Packs/Day Years Used Date Never Assessed Sex Assigned at Date Recorded Not on file documented as of this encounter Plan of Treatment Not on filedocumented as of this encounter Procedures Procedure Name Priority Date/Time Associated Diagnosis Comme nts FILM LIBRARY Routine 08/22/2010 11:15 AM Results for this STORAGE ONLY MAMMO EST procedure are in the results section. documented in this encounter Results Film Library- Storage only Mammo (08/22/2010 11:15 AM EST) Anatomical Region Laterality Modality Other Specimen (Source) Anatomical Collection Method Collection Time Re ceived Time Location / / Volume Laterality 08/22/2010 11:15 AM EST Narrative 02/06/2015 11:25 AM EDT This is a Non-reportable exam Procedure Note BEVERLEY, UNSIGNED REPORT - 02/06/2015Formatt ing of this note might be different from the original. This is a Non-reportable exam River Green MD [facility] [place] [place] FILM LIBRARY ORDERABLES documented in this encounter Visit Diagnoses Not on filedocumented in this encounter Care Teams Assistant Passenger Locomotive Engineer Relationship Specialty Start Date End Date [place] Granados, SOILA PCP - General 04/22/14 06/27/[address] [facility] [place] [address] documented as of this encounter
--- OUTSIDE RECORDS SUMMARY | 2021-12-28 04:11 | XMS_ITS | Encounter Summary ---
:1950 Author Organization [facility] Address [address] [place] [address] Care Team Providers Name Role Phone [place] Hector SOILA Primary Care Provider [phone] Reason for Visit Reason Comments Establish Care Encounter Details Date Type Department Care Team Description 05/03[facility] W, PAD ASSEMBLER Abdominal discomfort; [facility] Radiculo drake of lumbar region; [facility] DR Encounter [place] [address] GENERAL INTERNAL [phone] MED[place], [place] [address] Social History Tobacco Use Types Packs/Day Years Used Date Never Smoker Smokeless Tobacco: Never Used Alcohol Use Standard Drinks/Week Comments No 0 (1 standard drink = 0.6 oz pure alcoho l) Sex Assigned at Date Recorded Not on file documented as of this encounter Last Filed Vital Signs Vital Sign Reading Time Taken Comments Blood Pressure 114/62 05/03/2014 10:37 AM EDT Pulse 66 05/03/2014 10:37 AM EDT Temperature 36.7 ??C (98.1 ??F) 05/03/2014 10:37 AM EDT Respiratory Rate - - Oxygen Saturation 98% 05/03/2014 10:37 AM EDT Inhaled Oxygen Concentration - - Weight 57 kg (125 lb 9.6 oz) 05/03/2014 10:37 AM EDT Height 153.7 cm (5' 0.5) 05/03/2014 10:37 AM EDT Body Mass Index 24.13 05/03/2014 10:37 AM EDT documented in this encounter Progress Notes [place] Hector APRN - 05/03/2014 10:41 AM EDT PCP: ALL[place] HECTOR APRN SUBJECTIVE: 63 y.o. female presents to [facility]. She reports that she had a physical with her previous provider within the last year. She states that she thinks that it was before she turned 63 (review of her old records indicates that it was n 09/15/13). Leg Pain- she reports that she has been having ongoing upper leg discomfort for months. She states that she tried tramadol and gabapentin in the past and that it did not seem to help much. She states that the area is painful to touch, and that at night it will become jumpy. She reports that it is improved with warm soaks in the tub. She reports some prickly and burning sensation in her feet as well. She was seen in the spine center and had an injection into her back. She reports that this did helpher symptoms. She reports that they are coming back though. She did not notice an improvement with the burning on the bottom of her feet with the injection. Renal cyst- incidental finding on imagine of her back. Recommendation was to repeat imaging in 6 months. Hand tingling- has been wearing splints with some improvement. Sleep: She feels tired most of the time. She states that at night she is only able to sleep about 2-3 hours at night. She states that she will fall asleep during the day and wake up. Patient is unsure of recent screenings. Awaiting old records. Review of Systems Constitutional: Negative for fever, chills, appetite change and fatigue. HENT: Negative for ear pain, congestion, sneezing, neck pain, neck stiffness and sinus pressure. Respiratory: Negative for cough and shortness of breath. Cardiovascular: Negative for chest pain (occasional, not associated with exertion, intermittent. ) and palpitations (she thinks that she has history of this in the past. ). Gastrointestinal: Negative for nausea, vomiting, abdominal pain (occasional, unsure if related to needing to go to the bathroom. ), diarrhea, constipation (takes wheat cereal and that helps. She statesthat metamucel gives diarrhea. ), abdominal distention and rectal pain. Genitourinary: Positive for frequency (feels that cannot empty her bladder at times. ). Negative fordysuria, urgency, hematuria, vaginal bleeding, vaginal discharge and vaginal pain. Musculoskeletal: Positive for myalgias. Negative for arthralgias and gait problem. Skin: Negative for color change, rash and wound. Neurological: Negative for dizziness, seizures, syncope, light-headedness and headaches. Psychiatric/Behavioral: Negative for sleep disturbance and dysphoric mood. The patient is not nervous/anxious. History Smoking status ??? Never Smoker Smokeless tobacco ??? Never Used Patient Active Problem List Diagnosis Code ??? Radiculopathy of lumbar region 724.4 ??? Renal mass 593.9 ??? Neck pain 723.1 Allergies Allergen Reactions ??? Codeine Nausea And Vomiting Physical Exam: Filed Vitals: 05/03/14 1037 BP: 114/62 Pulse: 66 Temp: 36.7 ??C (98.1 ??F) Height: 153.7 cm (5' 0.5) Weight: 56.972 kg (125 lb 9.6 oz) SpO2: 98% General: alert, oriented, no acute distress ENT: TMs normal. No sinus tenderness. Nasal mucosa pink and moist. Pharynx without erythema, exudate, or enlarged tonsils. NECK: soft and supple, no lymphadenopathy. Heart: RRR S1S2 nl, no murmurs, no carotid bruits, no pretibial edema LUNGS: CTA bilat, no crackles or wheezes ABDOMEN: nl bowel sounds, soft, non-tender, non-distended, no masses, organomegaly, CVA tenderness MSK: ROM/strength equal and nl x 4 extremities; TENDERNESS TO PALPATION OF ANTERIOR THIGHS BILATERALLY NEURO: CN II-XII grossly intact. DTR's 2+/4+, symmetrical; strength nl x 4 extremities. Gait nl, negative Romberg. Assessment/Plan: Elida was seen today for establish care. Diagnoses and associated orders for this visit: Renal mass - Comprehensive metabolic panel (non-fasting); Future - Urinalysis with microscopic - Comprehensive metabolic panel (non-fasting) - will do imaging again in 6 months Abdominal discomfort - Comprehensive metabolic panel (non-fasting); Future - Comprehensive metabolic panel (non-fasting) Radiculopathy of lumbar region - patient to f/u for repeat injection into spine as this helped with symptoms in the past. - will try patient on lyrica to see if will help with pain as gabapentin was not effective. Patient in agreement with the plan Encounter to establish care - patient to sign record release, will review old labs. If pain not improving will consider further lab testing, such as ESR, CRP etc - patient to f/u in about 3 months, sooner if acute concerns. documented in this encounter Plan of Treatment Not on filedocumented as of this encounter Procedures Procedure Name Priority Date/Time Associated Comments Diagnosis COMPREHENSIVE Routine 05/03/2014 3:45 PM Renal mass Results for this METABOLIC PANEL EDT Abdominal procedure ar e in (NON-FASTING) discomfort the results section. URINALYSIS WITH REFLEX Routine 05/03/2014 3:44 PM Renal mass Results for this CULTURE EDT procedure are i n the results section. documented in this encounter Results (ABNORMAL) Comprehensive metabolic panel (non-fasting) (05/03/2014 3:45 PM EDT) P athologist Signature Glucose Lvl 84 60 - 199 CERNER mg/dL MILLENNIUM Comment: Diabetes: >=200 mg/dL plus symp toms BUN 14 8 - 18 mg/dL CERNER MILLENNIUM Creatinine 0.69 (L) 0.70 - 1.20 mg/dL CERNER MILL ENNIUM Comment: Please note that the pediatric reference intervals supplied above were not validated at [facility]. Results from pediatri c patients should be interpreted in conjunction to the patient's age, height and muscle mass. Sodium 142 135 - 145 mmol/L CERNER GIAN NIUM Potassium 3.9 3.5 - 5.0 mmol/L CERNER GIAN NIUM Comment: Please note: ??Patients with WBC >100,00 0 may have falsely elevated Potassium levels. ??For accurate Potassium quantif ication in these patients send serum separator tube (gold top) for subsequent determinations. ??Contact the Clinical Chemistry Laboratory if there are any qu estions. Chloride 102 98 - 107 mmol/L CERNER MILLENN IUM CO2 27 22 - 31 mmol/L CERNER MILLENNI UM Anion Gap 13 5 - 15 mmol/L CERNER MILLENNIU M Calcium 9.5 8.5 - 10.5 mg/dL CERNER GIAN NIUM Total Protein 6.6 6.4 - 8.3 gm/dL CERNER MIL LENNIUM Albumin 4.2 3.2 - 5.2 gm/dL CERNER MILLENN IUM AST 25 0 - 30 unit/L CERNER MILLENNIU M ALT 31 (H) 0 - 30 unit/L CERNER MILLENNIU M Alk Phos 93 40 - 104 unit/L CERNER MILLENN IUM Total Bilirubin 0.8 0.2 - 1.3 mg/dL CERNER M ILLENNIUM [...] the following links into your internet browser. [email or web address] Specimen Anatomical Collection Method Collection Time Receive d Time (Source) Location / / Volume Laterality Blood specimen 05/03/2014 3:45 PM 014 5:58 (specimen) EDT PM EDT Resulting Agency Comment Spec In Lab Lucio Montes De Oca MD CHEMISTRY ORDERABLES Performing Organization Address City/State/[place] [address] CERNER MILLENNIUM (ABNORMAL) Urinalysis with microscopic (05/03/2014 3:44 PM EDT) [facility] Method Time Signature Glucose UA Negative Negative [...] Negative mcL CERNER GIAN NIUM Appearance UA Hazy (A) Clear CERNER MILLENNIU M Spec [place] UA 1.015 1.002 - 1.030 CERNER MIL LENNIUM Color UA Yellow Yellow CERNER MILLENNIUM RBC UA 1 0 - 4 /HPF CERNER MILLENNIUM WBC UA 1 0 - 5 /HPF CERNER MILLENNIUM CaOx Abby UA Rare (A) None /HPF CERNER MILLENNIUM Specimen Anatomical Collection Method Collection Time Receive d Time (Source) Location / / Volume Laterality Urine specimen 05/03/2014 3:44 PM 014 5:58 (specimen) EDT PM EDT Resulting Agency Comment Spec In Lab Lucio Montes De Oca MD URINE ORDERABLES Performing Organization Address City/State/[place] [address] [facility] documented in this encounter Visit Diagnoses Diagnosis Renal mass Unspecified disorder of kidney and urete r Abdominal discomfort Abdominal pain, unspecified site Radiculopathy of lumbar region Thoracic or lumbosacral neuritis or radi culitis, unspecified Encounter to establish care Other reasons for seeking consultation documented in this encounter Care Teams Energy Efficiency Engineer Relationship Specialty Start Date End Date [place] Hector APRN PCP - General 04/22/14 06/27/21 [facility] [address] [place] [address] documented as of this encounter
--- OUTSIDE RECORDS SUMMARY | 2021-12-28 04:11 | XMS_ITS | Encounter Summary ---
:1950 Author Organization [facility] Address [facility] [address] [place] [address] Care Team Providers Name Role Phone [place] Hector APRN Primary Care Provider [phone] Reason for Visit Reason Onset Date Comments New Medication Request 01/24/2015 Encounter Details Date Type Department Care Team Description 01/24/2015 Telephone Internal Medicine at [place] Hector, New Medication Request [facility] PACKAGING OPERATOR [address] [place] [address] GENERAL INTERNAL [phone] MED-[place]ME [place], [place] [address] (Wo rk) Social History Tobacco Use Types Packs/Day Years Used Date Never Smoker Smokeless Tobacco: Never Used Alcohol Use Standard Drinks/Week Comments No 0 (1 standard drink = 0.6 oz pure alcoho l) Sex Assigned at Date Recorded Not on file documented as of this encounter Miscellaneous Notes Addendum Note - [place] Hector APRN - 01/25/2015 2:32 PM EDT Addended by: ALL[place] HECTOR on: 01/25/2015 02:32 PM Modules accepted: Orders Addendum Note - Corin Mclean RN - 01/24/2015 10:29 AM EDT Addended by: CORIN MCLEAN on: 01/24/2015 10:29 AM Modules accepted: Orders Telephone Encounter - Doris Hawthorne - 01/24/2015 9:55 AM EDT Patient is calling stating she needs [facility] Thank you. Telephone Encounter - [place] Hector APRN - 01/24/2015 8:24 AM EDT Spoke with patient about ferritin level being low. Recommended ferrous sulfate tablet 325 mg one tablet daily. Will recheck at f/u visit. documented in this encounter Plan of Treatment Not on filedocumented as of this encounter Visit Diagnoses Diagnosis Restless leg syndrome Restless legs syndrome (RLS) documented in this encounter Care Teams Shear Assembler Relationship Specialty Start Date End Date [place] Hector APRN PCP - General 04/22/14 06/27/[address] [facility] [address] [place] [address] documented as of this encounter
--- OUTSIDE RECORDS SUMMARY | 2021-12-28 04:11 | XMS_ITS | Encounter Summary ---
:1950 Author Organization [facility] [place] [address] Care Team Providers Name Role Phone Shireen Montoya MD Primary Care Provider Encounter Details Date Type Department Care Team Description 04/21/[address] Scan at [facility], [facility] [place] [address] Social History Tobacco Use Types Packs/Day Years [...] Diagnosis Comme nts CT ABDOMEN WWO Routine 04/21/2014 9:26 AM Radiculopathy of Res ults for this CONTRAST EDT lumbar region procedure are in the [...] interpretation reviewed by the attending Procedure Note Lny Gamble MD - 04/21/[address] Abdomen [...] Date Dose Rate Site iohexol (OMNIPAQUE) 350 mg Given 04/21/2014 9:32 AM EDT 38,500 m g iodine/mL injection 38,500 mg 38,500 mg (110 mL), Intravenous, ONCE PRN, 1 dose, Starting on Shannan 04/21/14 at 0932, Until Shannan 04/21/14 at 0932, Per Protocol, Routine documented in this encounter Care Teams Lacquer Sprayer Relationship Specialty Start Date End Date Shireen Montoya MD PCP - General 05/29/10 04/21/14 [address] [place] [address] documented as of this encounter
--- OUTSIDE RECORDS SUMMARY | 2021-12-28 04:11 | XMS_ITS | Encounter Summary ---
:1950 Author Organization [place] [address] Care Team Providers Name Role Phone Roberta, [place] Rain APRN Primary Care Provider [phone] Encounter Details Date Type Department Care Team Description 08/22/2010 Orders Only XRay at [facility] River Green MD [address] [place] [address] [place] [address] DIAGNOSIC RADIOLOGY [phone] [place], [place] [address] (Wo rk) Social History Tobacco Use Types Packs/Day Years Used Date Never Assessed Sex Assigned at Date Recorded Not on file documented as of this encounter Plan of Treatment Not on filedocumented as of this encounter Procedures Procedure Name Priority Date/Time Associated Diagnosis Comme nts FILM LIBRARY Routine 08/22/2010 12:45 PM Results for this STORAGE ONLY MAMMO EST procedure are in the results section. documented in this encounter Results Film Library- Storage only Mammo (08/22/2010 12:45 PM EST) Anatomical Region Laterality Modality Other Specimen (Source) Anatomical Collection Method Collection Time Re ceived Time Location / / Volume Laterality 08/22/2010 12:45 PM EST Narrative 03/02/2015 1:00 PM EDT This is a Non-reportable exam Procedure Note BEVERLEY, UNSIGNED REPORT - 03/02/2015Formatt ing of this note might be different from the original. This is a Non-reportable exam River Green MD [facility] FILM LIBRARY ORDERABLES documented in this encounter Visit Diagnoses Not on filedocumented in this encounter Care Teams Grain Manager Relationship Specialty Start Date End Date [place] Granados, SOILA PCP - General 04/22/14 06/27/[address] [facility] [place] [address] documented as of this encounter
--- OUTSIDE RECORDS SUMMARY | 2021-12-28 04:11 | XMS_ITS | Encounter Summary ---
:1950 Author Organization [facility] [place] [address] Care Team Providers Name Role Phone Allison Granados APRN Primary Care Provider [phone] Encounter Details Date Type Department Care Team Description 11/24/2014 Hospital Encounter Laboratory Lorri Moran, Abdominal pain, RUQ [facility] (right upper [address] ONE MEDICAL quadrant) [facility] [id number] GENERAL INTERNAL [phone] MED-[place], [place] [address] Social History Tobacco Use Types [...] Budesonide-Formoterol Inhale 1 puff into 1 Inhaler 201411/09/2015 160-4.5 mcg/actuation the lungs 2 times HFA Aerosol Inhaler daily. ibandronate (BONIVA) 150 Take 1 tablet by 1 tablet 10/2011/01/2015 mg Tablet mouth every 30 days. [...] Name Priority Date/Time Associated Diagnosis Comme nts HEPATITIS C Routine 11/24/2014 10:11 AM Abdominal pain, RUQ R esults for this ANTIBODY EDT (right upper procedure are i n quadrant) the results section. HEPATITIS A Routine 11/24/2014 10:11 AM Results for this ANTIBODY, TOTAL EDT procedure ar e in the results section. HEPATITIS B SURFACE Routine 11/24/2014 10:11 AM Abdominal pain , RUQ Results for this ANTIBODY EDT (right upper procedure are i n quadrant) the results section. HEPATITIS B SURFACE Routine 11/24/2014 10:11 AM Abdominal pain , RUQ Results for this ANTIGEN EDT (right upper procedure are i n quadrant) the results section. HEPATIC FUNCTION Routine 11/24/2014 10:11 AM Abdominal pain, R UQ Results for this PANEL EDT (right upper procedure are i n quadrant) the results section. documented in this encounter Results Hepatitis A Antibody, Total (11/24/2014 10:11 AM EDT) Analysis Performed At Patho logist Time Signature Hepatitis A Ab Negative Negative CERNER Total [facility] Specimen Anatomical Collection Method Collection Time Receive d Time (Source) Location / / Volume Laterality Blood specimen 11/24/2014 10:11 5 (specimen) AM EDT 10:31 AM EDT Resulting Agency Comment Spec In Lab Lorri Moran MD IMMUNOLOGY ORDERABLES Performing Organization Address City/State/[place] [address] CERNER MILLENNIUM (ABNORMAL) Hepatic Function Panel (11/24/2014 10:11 AM EDT) P athologist Signature Total Protein 7.3 6.1 - 8.0 CERNER gm/dL MILLENNIUM Albumin 4.3 3.2 - 5.2 CERNER gm/dL MILLENNIUM AST 46 (H) 0 - 30 CERNER unit/L MILLENNIUM ALT 76 (H) 0 - 30 CERNER unit/L MILLENNIUM Alk Phos 116 (H) 40 - 104 CERNER unit/L MILLENNIUM Total 0.9 0.2 - 1.3 CERNER Bilirubin mg/dL [facility] Bili, Direct 0.1 0.0 - 0.3 CERNER mg/dL MILLENNIUM Specimen Anatomical Collection Method Collection Time Receive d Time (Source) Location / / Volume Laterality Blood specimen 11/24/2014 10:11 5 (specimen) AM EDT 10:31 AM EDT Resulting Agency Comment Spec In Lab Lorri Moran MD CHEMISTRY ORDERABLES Performing Organization Address City/[facility] Code Phon e Number [address] CERNER MILLENNIUM Hepatitis B Surface Antigen (11/24/2014 10:11 AM EDT) Analysis Performed At [facility] HepB Surface Negative Negative [facility] Specimen Anatomical Collection Method Collection Time Receive d Time (Source) Location / / Volume Laterality Blood specimen 11/24/2014 10:11 5 (specimen) AM EDT 10:31 AM EDT Resulting Agency Comment Spec In Lab Lorri Moran MD CHEMISTRY ORDERABLES Performing Organization Address City/[facility] Phon e Number [address] CERNER MILLENNIUM Hepatitis B Surface Antibody (11/24/2014 10:11 AM EDT) Analysis Performed At [facility] HepB Surface Positive CERNER Ab MILLENNIUM Comment: Expected Results: Vaccinated: Positive Unvaccinated: Negative Please note: A positive result for this assay is consistent with a concentration of anti-HBs antibodies >10 mIU/ml, which indicates that anti-HBs antibodies have been detected at levels consistent with protective immunity against HBV infection. Specimen Anatomical Collection Method Collection Time Receive d Time (Source) Location / / Volume Laterality Blood specimen 11/24/2014 10:11 5 (specimen) AM EDT 10:31 AM EDT Resulting Agency Comment Spec In Lab Lorri Moran MD IMMUNOLOGY ORDERABLES Performing Organization Address City/[facility]/ZIP Code Phon e Number [address] [facility] Hepatitis C Antibody (11/24/2014 10:11 AM EDT) Analysis Performed At Patho logist Time Signature Hepatitis C Ab Negative Negative CERNER [facility] Specimen Anatomical Collection Method Collection Time Receive d Time (Source) Location / / Volume Laterality Blood specimen 11/24/2014 10:11 5 (specimen) AM EDT 10:31 AM EDT Resulting Agency Comment Spec In Lab Lorri Moran MD IMMUNOLOGY ORDERABLES Performing Organization Address City/[facility]/ZIP Code Phon e Number [address] [facility] documented in this encounter Visit Diagnoses Diagnosis Abdominal pain, RUQ (right upper quadran t) Abdominal pain, right upper quadrant documented in this encounter Care Teams Latent Print Examiner Relationship Specialty Start Date End Date Allison Granados APRN PCP - General 04/22/14 06/27/[address] [facility] [address] [place] [address] documented as of this encounter
--- OUTSIDE RECORDS SUMMARY | 2021-12-28 04:11 | XMS_ITS | Encounter Summary ---
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 Renal mass; [address] [place] [address] GENERAL INTERNAL [phone] MED-[place], [place] [address] (Wo rk) Social History Tobacco Use Types Packs/Day Years Used Date Never Smoker Smokeless Tobacco: Never Used Alcohol Use Standard Drinks/Week Comments No 0 (1 standard drink = 0.6 oz pure alcoho l) Sex Assigned at Date Recorded Not on file documented as of this encounter Last Filed Vital Signs Vital Sign Reading Time Taken Comments Blood Pressure 112/64 01/23/2015 8:56 AM EDT Pulse 63 01/23/2015 8:56 AM EDT Temperature 36.6 ??C (97.9 ??F) 01/23/2015 8:56 AM EDT Respiratory Rate - - Oxygen Saturation 96% 01/23/2015 8:56 AM EDT Inhaled Oxygen Concentration - - Weight 59.5 kg (131 lb 3.2 oz) 01/23/2015 8:56 AM EDT Height 154.9 cm (5' 1) 01/23/2015 8:56 AM EDT reported Body Mass Index 24.79 01/23/2015 8:56 AM EDT documented in this encounter Progress Notes Allison Hector APRN - 01/23/2015 9:45 AM EDT PCP: ALLISON HECTOR APRN Chief Complaint Patient presents with ??? Medication Check followup on meds for her restless legs, says much better ??? Other taking 3 tabs at night 1.5, different dose than med list says SUBJECTIVE: Elida Montez is a 64 y.o. female who presents for follow up on her restless leg syndrome. - She is sleeping better. She is taking 1.5 mg daily. - she is doing well with the 3 pills. - She can stay in bed all night and get up to go the bathroom. - she is taking the magnesium tablet daily as well. She takes after supper to help with her - her mother had - Her mother had major surgery on her arm as complication of the cardiac cath through her right arm. Review of Systems Constitutional: Negative for fever, chills and fatigue. Respiratory: Negative for cough, shortness of breath and wheezing. Cardiovascular: Negative for chest pain, palpitations and [...] week, then 2mg nightly. 60 tablet 3 ??? omeprazole (PRILOSEC) 20 mg [...] 729.5 ??? Osteopenia 733.90 OBJECTIVE: Filed Vitals: 01/23/15 0856 BP: 112/64 Pulse: 63 Temp: 36.6 ??C (97.9 ??F) Height: 154.9 cm (5' 1) Weight: 59.512 kg (131 lb 3.2 oz) SpO2: 96% PHYSICAL EXAM: Physical Exam Constitutional: She is [...] & PLAN: Elida was seen today for medication check and other. Diagnoses and associated orders for this visit: Restless leg syndrome - improved with requip. Will continue with current dose of 1.5 mg daily. - will still check iron levels to see if contributing to her symptoms. - Ferritin; Future - Iron and TIBC; Future - Ferritin - Iron and TIBC Renal mass - CT abdomen with/WO contrast; Future - will do in April prior to f/u visit. Will see patient later that day. Arthropathy - Ferritin; Future - Iron and TIBC; Future - Ferritin - Iron and TIBC Janet Bunch - 01/23/2015 9:42 AM EDT ESTABLISHED PATIENT VISIT Chief Complaint Patient presents with ??? Medication Check followup on meds for her restless legs, says much better ??? Other taking 3 tabs at night 1.5, different dose than med list says Pt is a 64 y.o. who presents for follow up visit for chronic leg pain and restless leg syndrome. Reports she is feeling much better. Was titrating the ropinirole up to 2 mg - notes that at 1.5 she finally felt the pain go away; at 2 mg she felt very groggy, so she went back down to 1.5mg and has stayed at that level. Pt states she is now sleeping most nights. She still has nights when she wakes up inthe middle of the night and cannot go back to sleep but it is not because of pain and she is able tostay in bed and rest. States that her has told her she snores. Does not feel short of breathwhen she wakes up. Does not sleep on multiple pillows. Denies swelling in her legs, chest pains, cough. ROS: see HPI Patient Active Problem List Diagnosis ??? Osteopenia ??? Pain in limb (LEG) Bilateral radiates UP from soles to back ??? Asthma ??? Health care maintenance Pap- last done 08/03/10 Colonoscopy- done 12/29/08 Mammogram- 11/12/12 Tdap- 09/16/08 Pneumovax- 08/12/2006, 09/15/13 Prevnar- 10/05/14 ??? Neck pain ??? Renal mass ??? Radiculopathy of lumbar region Current Outpatient Prescriptions on File Prior to Visit Medication Sig Dispense Refill ??? rOPINIRole (REQUIP) 0.5 mg Tablet Take 1 tablet by mouth nightly. Take 0.25 mg nightly for 2 days, then 0.5 mg nightly x 1 week, and then 1 mg nightly x 1 week, then 1.5 mg nightly x 1 week, then 2mg nightly. 60 tablet 3 ??? omeprazole (PRILOSEC) 20 mg [...] Apply 1 Application topically as needed. ??? [DISCONTINUED] ESOMEPRAZOLE MAGNESIUM (NEXIUM ORAL) Take 1 tablet by mouth daily. ??? albuterol (PROVENTIL HFA;VENTOLIN HFA) 90 mcg/actuation HFA Aerosol Inhaler Inhale 2 puffs into the lungs as needed. Use with spacer No current facility-administered medications on file prior [...] child in her home. She lives in [place], [place]. Physical Exam: BP 112/64 Pulse 63 Temp(Src) 36.6 ??C (97.9 ??F) Ht 154.9 cm (5' 1) Wt 59.512 kg (131 lb 3.2 oz) BMI 24.80 kg/m2 SpO2 96% General - AAOx3, pleasant, no acute distress. Lungs - Clear to auscultation bilaterally. Heart - RRR, S1,S2, no audible murmur, gallop or rub. Extremities - No clubbing, cyanosis or edema. Pulses intact. Assessment and Plan: Elida was seen today for medication check and other. Diagnoses and associated orders for this visit: Restless leg syndrome: Much improved on slightly higher dose of ropinirole, and sleep is significantly better as well. Would still like to obtain iron studies to rule out as cause/contributor to restless leg syndrome, and continue management otherwise as before. - Ferritin - Iron and TIBC - Continue 1.5 mg ropinirole at night Difficulty falling asleep: Somewhat better with improved leg symptoms although still waking up at night. Pt endorsed a lot of stress related to illness in the family (her mother has been ill and in/outof the hospital for a few months), which may be contributing. Currently no sx BOBBY other than snoring. - Encouraged good sleep hygiene - Monitor snoring and cardiac s/sx - Reassess at next visit Renal mass: found incidentally, stable on f/u imaging. Scheduled f/u CT for 04/2015 - CT abdomen with/WO contrast; Future F/u in 3 months or sooner as needed. Janet Bunch, MS4 documented in this encounter Plan of Treatment Not on filedocumented as of this encounter Procedures Procedure Name Priority Date/Time Associated Diagnosis Comme nts IRON AND TIBC Routine 01/23/2015 10:32 AM Restless leg syndrome Results for this EDT Arthropathy procedure are i n the results section . FERRITIN Routine 01/23/2015 10:32 AM Restless leg syndrome Results for this EDT Arthropathy procedure are i n the results section . documented in this encounter Results CT abdomen [...] at 05/04/2015 9:50 AM Lorri Moran MD IMG CT ORDERABLES (ABNORMAL) Iron and TIBC (01/23/2015 10:32 AM EDT) P athologist Signature Iron 51 30 - 150 CERNER mcg/dL MILLENNIUM TIBC 395 250 - 450 CERNER mcg/dL MILLENNIUM Iron Saturation 13 (L) 20 - 50 % CERNER MILLENNIUM Specimen Anatomical Collection Method Collection Time Receive d Time (Source) Location / / Volume Laterality Blood specimen 01/23/2015 10:32 5 6:24 (specimen) AM EDT PM EDT Resulting Agency Comment Spec In Lab Lorri Moran MD CHEMISTRY ORDERABLES Performing Organization Address City/[facility]/[place]IP [place] [address] CERNER MICHELENNIUM (ABNORMAL) Ferritin (01/23/2015 10:32 AM EDT) athologist Signature Ferritin 17 (L) 30 - 400 CERNER ng/mL [facility] Comment: Pediatric reference ranges not verified at [facility], interpret with caution. Reference ranges for females greater celine n 50 years of age approach values for men, i.e., 30-400 ng/mL. Specimen Anatomical Collection Method Collection Time Receive d Time (Source) Location / / Volume Laterality Blood specimen 01/23/2015 10:32 5 6:27 (specimen) AM EDT PM EDT Resulting Agency Comment Spec In Lab Lorri Moran MD CHEMISTRY ORDERABLES Performing Organization Address City/[facility]/ZIP Code Phon e Number [address] SHASHA MORALESIUM documented in this encounter Visit Diagnoses Diagnosis Restless leg syndrome - Primary Restless legs syndrome (RLS) Renal mass Unspecified disorder of kidney and urete r Arthropathy Arthropathy, unspecified, site unspecifi ed Renal mass Unspecified disorder of kidney and urete r documented in this encounter Care Teams Cold Meat Chef Relationship Specialty Start Date End Date Allison Hector APRN PCP - General 04/22/14 06/27/[address] [facility] [place] [address] documented as of this encounter
--- OUTSIDE RECORDS SUMMARY | 2021-12-28 04:11 | XMS_ITS | Encounter Summary ---
:1950 Author Organization [facility] [place] [address] Care Team Providers Name Role Phone Roberta Allison Rain APRN Primary Care Provider [phone] Encounter Details Date Type Department Care Team Description 10/05/[address] Scan at [facility], DR CONV Renal mass [facility] Ilia Flores MD [facility] [place] [address] [place] [phone] Social History Tobacco Use Types Packs/Day [...] Diagnosis Comme nts CT ABDOMEN WWO Routine 10/05/2014 7:31 AM Results for this CONTRAST EDT procedure are i n the results section. documented in this encounter Results CT abdomen with/WO contrast (10/05/2014 7:31 AM EDT) Anatomical Region Laterality Modality Abdomen Computed Tomography Specimen (Source) Anatomical Collection Method Collection Time Re ceived Time Location / / Volume Laterality 10/05/2014 7:31 AM EDT Impressions 10/05/2014 10:49 AM EDT IMPRESSION: Stable size of irregular, complex low de nsity lesion of the left kidney. Suggest interval follow-up. This report was reviewed by Juan aaron at 10/05/2014 10:44 AM Film and interpretation reviewed by the attending Narrative 10/05/2014 10:49 AM EDT EXAMINATION: ??CT Abdomen With and Without Contrast CLINICAL HISTORY: ??central cyst left ki dney compre to earlier ct to classify CT 04/21/2014 compare TECHNIQUE: Helical CT of the abdomen was performed prior to and following the intravenous administration of contrast. ??110 cc of Omnipaque 350 was given. Oral contrast was administered. COMPARISON: ??04/21/2014 CT abdomen FINDINGS: NONCONTRAST Visualized lung bases are within normal limits. Surgical clips in the gallbladder fossa. No urolithiasis is se en. Mild atherosclerotic changes within the abdominal aorta. POSTCONTRAST Symmetric nephrograms. Right kidney: Stable appearance of 7 mm hypodense lesion within the superior pole, which is too small to further rand acterize. Kidney is of normal size. No hydronephrosis. Left kidney: Stable size of irregular, e nhancing central interpolar left renal lesion, measuring 13 mm. Stable size and appearance of 12 mm renal cyst. There is a subcentimeter hypodense lesion with in the renal cortex, which is stable and too small to characterize. Kidneys of no rmal size. No hydronephrosis. Liver: ??Normal. Bile ducts: ??Nondilated. Gallbladder: ??Postcholecystectomy. Pancreas: ??Normal. Spleen: ??Normal. Adrenal: ??Normal. Bowel: Nondilated, no inflammatory johnson es. Lymph nodes: ??Prominent, but not pathol ogically enlarged, aortocaval lymph node on series 4 image 31, which is stable in size when compared to prior study. Peritoneum: ??No ascites, free air, or f luid collection.. Vasculature: ??Mild Arthrosclerotic olivera ges. Osseous structures: No suspicious lesion s. Procedure Note Juan Cowan MD - 10/05/2014Form atting of this note might be different from the original. EXAMINATION: CT Abdomen With and Without Contrast CLINICAL HISTORY: central cyst left kidn ey compre to earlier ct to classify CT 04/21/2014 compare TECHNIQUE: Helical CT of the abdomen was performed prior to and following the intravenous administration of contrast. 110 cc of Omnipaque 350 was given. Oral contrast was administered. COMPARISON: 04/21/2014 CT abdomen FINDINGS: NONCONTRAST Visualized lung bases are within normal limits. Surgical clips in the gallbladder fossa. No urolithiasis is se en. Mild atherosclerotic changes within the abdominal aorta. POSTCONTRAST Symmetric nephrograms. Right kidney: Stable appearance of 7 mm hypodense lesion within the superior pole, which is too small to further rand acterize. Kidney is of normal size. No hydronephrosis. Left kidney: Stable size of irregular, e nhancing central interpolar left renal lesion, measuring 13 mm. Stable size and appearance of 12 mm renal cyst. There is a subcentimeter hypodense lesion with in the renal cortex, which is stable and too small to characterize. Kidneys of no rmal size. No hydronephrosis. Liver: Normal. Bile ducts: Nondilated. Gallbladder: Postcholecystectomy. Pancreas: Normal. Spleen: Normal. Adrenal: Normal. Bowel: Nondilated, no inflammatory johnson es. Lymph nodes: Prominent, but not patholog ically enlarged, aortocaval lymph node on series 4 image 31, which is stable in size when compared to prior study. Peritoneum: No ascites, free air, or flu id collection.. Vasculature: Mild Arthrosclerotic change s. Osseous structures: No suspicious lesion s. IMPRESSION IMPRESSION: Stable size of irregular, complex low de nsity lesion of the left kidney. Suggest interval follow-up. This report was reviewed by Juan aaron at 10/05/2014 10:44 AM Film and interpretation reviewed by the attending Ilia Flores MD IMG CT ORDERABLES documented in this encounter Visit Diagnoses Diagnosis Renal mass Unspecified disorder of kidney and urete r documented in this encounter Administered Medications Inactive Administered Medications - up to 3 most recent administrations Medication Order MAR Action Action Date Dose Rate Site iohexol (OMNIPAQUE) 350 mg/mL Given 10/05/2014 7:24 AM EDT 38,50 0 mg solution 38,500 mg 38,500 mg (110 mL), Intravenous, ONCE PRN, 1 dose, Starting on Fri10/05/14 at 0723, Until Fri10/05/14 at 0724, Per Protocol, Routine documented in this encounter Care Teams Bit Setter Relationship Specialty Start Date End Date Allison Granados APRN PCP - General 04/22/14 06/27/[address] [facility] [address] [place] [address] documented as of this encounter
--- OUTSIDE RECORDS SUMMARY | 2021-12-28 04:11 | XMS_ITS | Encounter Summary ---
:1950 Author Organization [facility] [place] [address] Care Team Providers Name Role Phone Allison Hector APRN Primary Care Provider [phone] Reason for Visit Reason Comments Other Encounter Details Date Type Department Care Team Description 11/15/2014 Telephone Internal Medicine at [place] Allison Murphy APRN [facility] DR Gutierrez [facility] [place] [address] [place] [address] [phone] (Wo rk) Social History Tobacco Use Types Packs/Day Years Used Date Never Smoker Smokeless Tobacco: Never Used Alcohol Use Standard Drinks/Week Comments No 0 (1 standard drink = 0.6 oz pure alcoho l) Sex Assigned at Date Recorded Not on file documented as of this encounter Miscellaneous Notes Telephone Encounter - Allison Hector APRN - 11/15/2014 3:27 PM EDT Unable to add on hepatitis panel. - documented in this encounter Plan of Treatment Not on filedocumented as of this encounter Results (ABNORMAL) Hepatic Function Panel (11/24/2014 10:11 AM [...] 0.9 0.2 - 1.3 CERNER Bilirubin mg/dL MILLENNIUM Bili, Direct 0.1 0.0 - 0.3 CERNER mg/dL MILLENNIUM Specimen Anatomical Collection Method Collection Time Receive d Time (Source) Location / / Volume Laterality Blood specimen 11/24/2014 10:11 5 (specimen) AM EDT 10:31 AM EDT Resulting Agency Comment Spec In Lab Lorri Moran MD CHEMISTRY ORDERABLES Performing Organization Address City/[facility]/ZIP Code Phon e Number [address] CERNER MILLENNIUM Hepatitis B Surface Antigen (11/24/2014 10:11 AM EDT) Analysis Performed At [facility] Signature HepB Surface Negative Negative CERNER Ag MILLENNIUM Specimen Anatomical Collection Method Collection Time Receive d Time (Source) Location / / Volume Laterality Blood specimen 11/24/2014 10:11 5 (specimen) AM EDT 10:31 AM EDT Resulting Agency Comment Spec In Lab Lorri Moran MD CHEMISTRY ORDERABLES Performing Organization Address City/[facility] Phon e Number [address] CERNER MILLENNIUM Hepatitis B Surface Antibody (11/24/2014 10:11 AM EDT) Analysis Performed At [facility] Time Signature HepB Surface Positive CERNER Ab MILLENNIUM Comment: [...] Organization Address City/State/ZIP Code Phon e Number [address] [facility] Hepatitis C Antibody (11/24/2014 10:11 AM EDT) Analysis Performed At [facility]o logist Time Signature Hepatitis C Ab Negative Negative [facility] Specimen Anatomical Collection Method Collection Time Receive d Time (Source) Location / / Volume Laterality Blood specimen 11/24/2014 10:11 5 (specimen) AM EDT 10:31 AM EDT Resulting Agency Comment Spec In Lab Lorri Moran MD IMMUNOLOGY ORDERABLES Performing Organization Address City/[facility]/ZIP Code Phon e Number [address] [facility] US abdomen limited (11/24/2014 9:49 AM EDT) Anatomical Region Laterality Modality Abdomen Ultrasound Specimen (Source) Anatomical Collection Method Collection Time Re ceived Time Location / / Volume Laterality 11/24/2014 9:49 AM EDT Narrative 11/24/2014 9:55 AM EDT Abdominal ?(Signed Final 11/24/2014 09:54 ? am) Patient Info ID #: ? [id number] ?: ??[birth year] (64 yrs) Name: ? JAGRUTI DINH ?Visit Date: 11/24/2014 09:42 am Performed By Performed By: ?Katy Ibrahim RDMS Attending: ? Horace DARDEN, David Broderick Referred By: ? ALLISON DAVENPORT Service(s) Provided ??UABDLIM - Abdominal Limited Survey Si ngle ? [id number] ??Organ or Quadrant - [id number] Indications ??significant RUQ pain and elevated LFT s ----- Liver ----- Right Lobe Length: ?? 12.0 ?? cm Echogenicity/Echotexture: ?? Normal Comment: ?Echogenic shadowing foci sally hepatis area 6mm. Gallbladder Cholelithiasis: ?Surgically abse nt Biliary Tract Intrahepatic Ducts: ?? Normal Extrahepatic Ducts: ?? Normal Common Duct Size: ? 3.0 ? mm -------- Pancreas -------- Head: ? Normal Tail: ? Poorly visua lized due to overlying bowel Body: ? Normal Right Kidney Size (cm) ?L: ??10.2 Cortical Thickness: ?Normal Cortical Echogenicity: ?? Normal Hydronephrosis: ?No sonogr aphic evidence ----- Aorta ----- Comment: ?Normal in caliber where v isualized --- IVC --- Normal in caliber where visualized. Impression Ultrasound - Abdomen Limited - Summary Normal RUQ ultrasound exam, except for s/p cholecystectomy. I ??viewed the images and agree with gonzález white interpretation. ? Nikolay Coreas Electronically Signed Final Report ?? 09:54 am Procedure Note David Vu MD - 11/24/2014Formatt ing of this note might be different from the original. Abdominal (Signed Final 11/24/2014 09:5 4 am) Patient Info ID #: [id number] : [birth year] (64 y rs) Name: JAGRUTI DINH Visit Date: 015 09:42 am Performed By Performed By: Katy Ibrahim RDMS Attending: David Vu MD Referred By: ALLISON HECTOR APRN Service(s) Provided UABDLIM - Abdominal Limited Survey [place] [id number] Organ or Quadrant - [id number] Indications significant RUQ pain and elevated LFTs ----- Liver ----- Right Lobe Length: 12.0 cm Echogenicity/Echotexture: Normal Comment: Echogenic shadowing foci sally hepatis area 6mm. Gallbladder Cholelithiasis: Surgically absent Biliary Tract Intrahepatic Ducts: Normal Extrahepatic Ducts: Normal Common Duct Size: 3.0 mm -------- Pancreas -------- Head: Normal Tail: Poorly visualized due to overlyin g bowel Body: Normal Right Kidney Size (cm) L: 10.2 Cortical Thickness: Normal Cortical Echogenicity: Normal Hydronephrosis: No sonographic evidence ----- Aorta ----- Comment: Normal in caliber where visual ized --- IVC --- Normal in caliber where visualized. Impression Ultrasound - Abdomen Limited - Summary Normal RUQ ultrasound exam, except for s/p cholecystectomy. I viewed the images and agree with the above interpretation. David Vu MD Electronically Signed Final Report 11/24 09:54 am Lorri Moran MD IMG US GEN ORDERABLES documented in this encounter Visit Diagnoses Diagnosis Abdominal pain, RUQ (right upper quadran t) - Primary Abdominal pain, right upper quadrant Abdominal pain, RUQ (right upper quadran t) Abdominal pain, right upper quadrant documented in this encounter Care Teams Tour Narrator Relationship Specialty Start Date End Date Allsion Hector APRN PCP - General 04/22/14 06/27/[address] [facility] [address] ROD INTERNAL [facility] [place] [address] documented as of this encounter
--- OUTSIDE RECORDS SUMMARY | 2021-12-28 04:11 | XMS_ITS | Encounter Summary ---
:1950 Author Organization [facility] [place] [address] Care Team Providers Name Role Phone Allison Granados APRN Primary Care Provider [phone] Encounter Details Date Type Department Care Team Description 01/23/2015 Orders Only [facility] Medicine at [place] [address] FLOOR CARE TECHNICIAN [address] [facility] [place] [address] [phone] [place], [place] [address] (Wo rk) Social History Tobacco [...] on filedocumented in this encounter Care Teams Machinist General Relationship Specialty Start Date End Date Allison Granados APRN PCP - General 04/22/14 06/27/[address] [facility] [place] [address] documented as of this encounter
--- OUTSIDE RECORDS SUMMARY | 2021-12-28 04:11 | XMS_ITS | Encounter Summary ---
:1950 Author Organization [facility] [place] [address] Care Team Providers Name Role Phone Allison Granados APRN Primary Care Provider [phone] Encounter Details Date Type Department Care Team Description 08/19/2014 Office Visit [place]rology [place] [facility] [place]ji Redding, Paresthesia of [facility] [place] [address] NEUROLOGY DEPT. [phone] [place], [place] [address] Social History Tobacco Use Types Packs/Day Years Used Date Never Smoker Smokeless Tobacco: Never Used Alcohol Use Standard Drinks/Week Comments No 0 (1 standard drink = 0.6 oz pure alcoho l) Sex Assigned at Date Recorded Not on file documented as of this encounter Last Filed Vital Signs Vital Sign Reading Time Taken Comments Blood Pressure 127/80 08/19/2014 8:12 AM EST Pulse 79 08/19/2014 8:12 AM EST Temperature - - Respiratory Rate - - Oxygen Saturation - - Inhaled Oxygen Concentration - - Weight 59 kg (130 lb) 08/19/2014 8:12 AM EST Height 154.9 cm (5' 1) 08/19/2014 8:12 AM EST Body Mass Index 24.56 08/19/2014 8:12 AM EST documented in this encounter Progress Notes Reji Redding MD - 08/19/2014 9:19 AM EST I was asked to see Elida Montez at the request of Helen Jara A.P.R.N. for EMG nerve conduction studies for the evaluation of bilateral leg pain and paresthesias. Elida is a 63-year-old female who states she has had a long history of restless leg symptoms since she was in her 20s. She has tried multiple medications over the years, which she has not found helpful including Lyrica, meloxicam, naproxen, and gabapentin, tramadol, ropinirole, and even hydrocodone. She said with those symptoms typically it was worse in the evening or at night and if she would walk around it would ease it off. She would get some different sensations up and down her legs, but not really in her feet. She said things seemed to change last summer and she started having significant burning pain in her feet. She would at times feel it radiating up the back of her leg up to the gluteal region. She had some intermittent back pain. [facility] She had a lumbar epidural steroid injection, which she found helped the back pain, but she did not really feel it helped her burning feet symptoms. She denies any similar burning in her hands, although does get some general aching in her hands. She denies any significant bladder complaints. She does mention some chronic constipation. She denies any sweating changes. She denies any weakness in her legs. She denies any balance complaints. Past Medical History: Includes history of restless leg syndrome, as per history of presenting illness. History of renal cyst, left kidney. Medications 08/19/14 4113 Medication Sig Taking? triamcinolone (KENALOG) 0.1 % Cream Apply 1 Application topically as needed. Yes fluticasone-salmeterol (ADVAIR DISKUS) 250-50 mcg/dose Disk with Device Inhale 1 puff into the lungs2 times daily. Yes ESOMEPRAZOLE MAGNESIUM (NEXIUM ORAL) Take 1 tablet by mouth daily. Yes albuterol (PROVENTIL HFA;VENTOLIN HFA) 90 mcg/actuation HFA Aerosol Inhaler Inhale 2 puffs into the lungs as needed. Use with spacer Yes amitriptyline (ELAVIL) 10 mg Tablet Take 1 tablet by mouth nightly. May increase to 2 tablet at bedtime in 1 week. Allergies Allergen Reactions ??? Codeine Nausea And Vomiting Family History: She does not really know her family history, of note. Social History: She lives with her . 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 She does not smoke; does not drink alcohol. Review of Systems: As per history of presenting illness, otherwise negative; although, she has had significant impairment of sleep due to the pain. She said she often only gets a few hours of sleep at night. In general she appears in no distress. HEENT: Mucous membranes are moist. Sclerae are anicteric. Oropharynx is clear. Cardiovascular: Heart has a regular rate and rhythm, S1 S2, no murmurs, no peripheral edema. Respiratory: Lungs are clear to auscultation bilaterally. Musculoskeletal: See neurological exam. Skin: No rashes. Neurological: Mental status: She is alert, oriented, and attentive to questions. Speech is fluent, goal directed, and no dysarthria. Cranial nerve testing II through XII is intact including extraocular muscles intact. Motor exam: There is no muscle atrophy or fasciculations. Tone is normal. Power is 5 out of 5 throughout. Reflexes are 2+ throughout. Sensory exam is notable for only slight vibratory sense loss in the toes, normal temperature and pinprick in the feet and lower extremities. Gait is normal. Romberg is negative. Laboratory Data: She did have comprehensive metabolic panel in April that was unremarkable. Glucose was not fasting, but it was 84. EMG Nerve Conduction Studies: Please see report for complete data. Left tibial and motor studies and left sural sensory study are within clear normal limits. Left peroneal and tibial F waves are normal. EMG of left lower extremity for tibialis anterior, medial head of gastroc, vastus lateralis, iliopsoas, and tibialis posterior showed no active denervation and normal motor unit action potentials. Assessment: EMG nerve conduction studies are normal and do not demonstrate electrophysiologic evidence of a generalized peripheral neuropathy or left lumbosacral radiculopathy. With respect to the patient's chronic burning pain in her feet and nocturnal symptoms that would be atypical for restless leg syndrome. It does seem like she has had some symptoms of restless leg syndrome over the years with some of her calf and leg discomforts. Of note, she did not really respond to any particular medications for restless leg syndrome. As for the burning pain in her feet radiating up, it does not suggest it is related to her spine. She has had lumbosacral MRI, which I did review and that was unrevealing. This could be a small fiber peripheral neuropathy not picked up on nerve conduction studies, as the distribution mainly in her feet does suggest that possibility. Plan: We discussed further testing. It is reasonable to obtain B12, TSH, serum protein electrophoresis for screen for small fiber peripheral neuropathy. We discussed diabetic screening. She can follow up with her PCP in that regard. We also discussed the possibility of a skin biopsy to evaluate for small fiber peripheral neuropathy. 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 I would not recommend that at this point. We also discussed the possibility of underlying restless leg syndrome and she could always discuss with her PCP about a sleep study to try to obtain further evidence for that. Of note, she has tried multiple medications for that specifically over the years and has not found it helpful. We discussed symptomatic treatment for her burning pain in her feet particularly at night. It is reasonable to try low dose amitriptyline, cautiously 10 mg at night. She can increase to 20 in about a week and see how she does. We discussed possible side effects including dry mouth, fatigue, and sedation. She will stop the medications if she has any difficulties. She can then follow up with her PCP and further titration can be done slowly up to 50 mg as tolerated depending on her course. We discussed the possibility, if needed, of retrying the gabapentin just for the burning dysesthesias in her feet. She has some reservations about it. She did not find that it was helpful for her other symptoms. It could though be retried in the future. No further neurological followup has been made; I can see her in the future if needed. documented in this encounter Plan of Treatment Not on filedocumented as of this encounter Procedures Procedure Name Priority Date/Time Associated Diagnosis Comme nts TSH Routine 08/19/2014 9:34 AM Paresthesia of Results for this EST bilateral legs procedure are in the results section. PROTEIN Routine 08/19/2014 9:34 AM Paresthesia of Results for this ELECTROPHORESIS, EST bilateral legs procedure are in SERUM the results section. VITAMIN B12 Routine 08/19/2014 9:34 AM Paresthesia of Results for this EST bilateral legs procedure are in the results section. documented in this encounter Results Vitamin B12 (08/19/2014 9:34 AM EST) P athologist Signature Vitamin B-12 [phone] - 974 CERNER pg/mL MILLENNIUM Specimen Anatomical Collection Method Collection Time Receive d Time (Source) Location / / Volume Laterality Blood specimen 08/19/2014 9:34 AM 015 9:39 (specimen) EST AM EST Resulting Agency Comment Spec In Lab Reji Redding MD CHEMISTRY ORDERABLES Performing Organization Address City/[facility] Code Phon e Number [address] CERNER MILLENNIUM Protein Electrophoresis, serum (08/19/2014 9:34 AM EST) Patholo gist Method Time Signature Total Prot 6.7 6.4 - 8.3 CERNER Elec gm/dL MILLENNIUM Albumin Elect 4.44 3.60 - 6.00 CERNER gm/dL MILLENNIUM Alpha1-Globul 0.17 0.10 - 0.30 CERNER in gm/dL MILLENNIUM Alpha2-Globul 0.70 0.40 - 0.90 CERNER in gm/dL MILLENNIUM Beta Globulin 0.74 0.50 - 1.00 CERNER gm/dL MILLENNIUM Gamma 0.66 0.50 - 1.30 CERNER Globulin gm/dL MILLENNIUM M1 Band None None CERNER Detected Detected MILLENNIUM gm/dL Scan See Note CERNER MILLENNIUM Comment: Please see scanned report in Ch art Review under the [facility] Laboratory Heading. Specimen Anatomical Collection Method Collection Time Receive d Time (Source) Location / / Volume Laterality Blood specimen 08/19/2014 9:34 AM 015 9:39 (specimen) EST AM EST Narrative This result has an attachment that is no t available. Resulting Agency Comment Spec In Lab Reji Redding MD CHEMISTRY ORDERABLES Performing Organization Address City/[facility] [place] [address] CERNER MILLENNIUM TSH (08/19/2014 9:34 AM EST) P athologist Signature TSH 3.49 0.27 - 4.20 CERNER mcIU/mL MILLENNIUM Specimen Anatomical Collection Method Collection Time Receive d Time (Source) Location / / Volume Laterality Blood specimen 08/19/2014 9:34 AM 015 9:39 (specimen) EST AM EST Resulting Agency Comment Spec In Lab Reji Redding MD CHEMISTRY ORDERABLES Performing Organization Address City/State/ZIP Code Phon e Number [address] CERNER MILLENNIUM documented in this encounter Visit Diagnoses Diagnosis Paresthesia of bilateral legs Disturbance of skin sensation documented in this encounter Care Teams Business Technology Professor Relationship Specialty Start Date End Date Allison Granados APRN PCP - General 04/22/14 06/27/[address] [facility] [address] [place] [place] [address] documented as of this encounter
--- OUTSIDE RECORDS SUMMARY | 2021-12-28 04:11 | XMS_ITS | Encounter Summary ---
:1950 Author Organization [place] [address] Care Team Providers Name Role Phone Allison Granados APRN Primary Care Provider [phone] Reason for Visit Reason Comments Other Encounter Details Date Type Department Care Team Description 10/17/2014 Telephone Internal Medicine at [place] Allison Murphy, SAMPLING THEORY TEACHER [facility] DR Gutierrez [facility] [place] [address] [place] [address] [phone] (Wo rk) Social History Tobacco Use Types Packs/Day Years Used Date Never Smoker Smokeless Tobacco: Never Used Alcohol Use Standard Drinks/Week Comments No 0 (1 standard drink = 0.6 oz pure alcoho l) Sex Assigned at Date Recorded Not on file documented as of this encounter Miscellaneous Notes Telephone Encounter - Allison Granados APRN - 10/17/2014 8:55 AM EDT Discussed results of CT of kidney and Dexa scan. - Will repeat kidney test in 6 months, and then if no change one year after that. - Dexa shows osteopenia, will start on actonel if insurance will cover. She preferred not restartingfosamax. Would like to try weekly dose, willing to do daily if not covered by insurance. documented in this encounter Plan of Treatment Not on filedocumented as of this encounter Visit Diagnoses Not on filedocumented in this encounter Care Teams Bottle Labeler Relationship Specialty Start Date End Date Allison Granados APRN PCP - General 04/22/14 06/27/[address] [facility] [address] [place] [address] documented as of this encounter
--- OUTSIDE RECORDS SUMMARY | 2021-12-28 04:11 | XMS_ITS | Encounter Summary ---
:1950 Author Organization [facility] [place] [address] Care Team Providers Name Role Phone Allison Hector APRN Primary Care Provider [phone] Reason for Visit Reason Comments Headache had for last 4 5 days Gastroesophageal Reflux at least once a day Insomnia up and down all night Encounter Details Date Type Department Care Team Description 12/01/2014 Office Visit Internal Medicine Allison Hector oesophageal reflux disease without esophagitis; at [facility] SOILA Rain Insomnia, unspecified [address] [facility] [place] [address] GENERAL INTERNAL [phone] [facility], [place] [address] Social History Tobacco Use Types Packs/Day Years Used Date Never Smoker Smokeless Tobacco: Never Used Alcohol Use Standard Drinks/Week Comments No 0 (1 standard drink = 0.6 oz pure alcoho l) Sex Assigned at Date Recorded Not on file documented as of this encounter Last Filed Vital Signs Vital Sign Reading Time Taken Comments Blood Pressure 121/79 12/01/2014 7:50 AM EDT Pulse 78 12/01/2014 7:50 AM EDT Temperature 36.7 ??C (98 ??F) 12/01/2014 7:50 AM EDT Respiratory Rate - - Oxygen Saturation 98% 12/01/2014 7:50 AM EDT Inhaled Oxygen Concentration - - Weight 59.7 kg (131 lb 9.6 oz) 12/01/2014 7:50 AM EDT Height 154.9 cm (5' 1) 12/01/2014 7:50 AM EDT Body Mass Index 24.87 12/01/2014 7:50 AM EDT documented in this encounter Progress Notes Allison Hector APRN - 12/01/2014 7:48 AM EDT PCP: ALLISON HECTOR APRN Chief Complaint Patient presents with ??? Headache had for last 4 5 days ??? Gastroesophageal Reflux at least once a day ??? Insomnia up and down all night SUBJECTIVE: Elida Montez is a 64 y.o. female who presents for follow up for GERD. - She reports that she has had constant reflux. She reports that she is vomiting. - She reports that her legs are bothering her all of the time. - She reports that it is worse at night - She has tried Tums. - She reports that it is in the upper legs and her lower back for the last couple of weeks. Insomnia- - She reports that the upper right quadrant pain has improved. It is not as sore as it was in the past. Review of Systems Constitutional: Positive for fatigue. Negative for fever and chills. Respiratory: Positive for cough. Negative for shortness of breath. Cardiovascular: Negative for chest pain and palpitations. Gastrointestinal: Positive for abdominal pain. Musculoskeletal: Positive for myalgias, back pain and arthralgias. Negative for gait problem. Allergies Allergen Reactions [...] 729.5 ??? Osteopenia 733.90 OBJECTIVE: Filed Vitals: 12/01/14 0750 BP: 121/79 Pulse: 78 Temp: 36.7 ??C (98 ??F) Height: 154.9 cm (5' 1) Weight: 59.693 kg (131 lb 9.6 oz) SpO2: 98% PHYSICAL EXAM: Physical Exam Constitutional: She is oriented to person, place, and time. She appears well- developed and well-nourished. HENT: Head: Atraumatic. Right Ear: Tympanic membrane and ear canal normal. Left Ear: Tympanic membrane and ear canal normal. Eyes: Conjunctivae are normal. Pupils are equal, round, and reactive to light. Cardiovascular: Normal rate, regular rhythm and normal heart sounds. Pulmonary/Chest: Effort normal and breath sounds normal. No respiratory distress. She has no wheezes. She has no rales. Abdominal: Soft. Bowel sounds are normal. She exhibits no distension and no mass. There is tenderness (RUQ, improved from last visit). There is no rebound and no guarding. Neurological: She is alert and oriented to person, place, and time. Skin: Skin is warm and dry. Psychiatric: She has a normal mood and affect. ASSESSMENT & PLAN: Elida was seen today for headache, gastroesophageal reflux and insomnia. Diagnoses and associated orders for this visit: Gastroesophageal reflux disease without esophagitis - omeprazole (PRILOSEC) 20 mg Capsule, Delayed Release(E.C.); Take 1 capsule by mouth daily. - f/u in 2 weeks Insomnia, unspecified - zolpidem (AMBIEN) 5 mg Tablet; Take 1 tablet by mouth nightly as needed for Sleep. documented in this encounter Plan of Treatment Not on filedocumented as of this encounter Visit Diagnoses Diagnosis Gastroesophageal reflux disease without esophagitis Esophageal reflux Insomnia, unspecified documented in this encounter Care Teams Welder And Fitter Relationship Specialty Start Date End Date Allison Hector APRN PCP - General 04/22/14 06/27/[address] [facility] [address] ROD INTERNAL [facility] [place] [address] documented as of this encounter
--- OUTSIDE RECORDS SUMMARY | 2021-12-28 04:11 | XMS_ITS | Encounter Summary ---
:1950 Author Organization [facility] [place] [address] Care Team Providers Name Role Phone Shireen Montoya MD Primary Care Provider Encounter Details Date Type Department Care Team Description 03/18/2014 [place] En[place] [facility] [place], [facility] [place] [address] Radiculopathy [facility] Domingo Abdi MD [facility] [place] [address] [place] [phone] Social History Tobacco Use Types Packs/Day Years Used Date Never Smoker Smokeless Tobacco: Never Used Sex Assigned at Date Recorded Not on file documented as of this encounter Medications at Time of Discharge Medication Sig Dispensed Refills Start Date End Date albuterol (PROVENTIL Inhale 2 puffs into 0 05/04/2015 HFA;VENTOLIN HFA) 90 the lungs as needed. mcg/actuation HFA Aerosol Use with spacer Inhaler fluticasone-salmeterol Inhale 1 puff into 0 05/03/2014 (ADVAIR DISKUS) 250-50 the lungs 2 times mcg/dose Disk with Device daily. documented as of this encounter Plan of Treatment Not on filedocumented as of this encounter Procedures Procedure Name Priority Date/Time Associated Diagnosis Comme nts MRI LUMBAR SPINE Routine 03/18/2014 3:08 PM Radiculopathy of R esults for this WITHOUT CONTRAST EDT lumbar region procedure are in the results section. documented in this encounter Results MRI lumbar spine without [...] contrast Comparison NONE Findings There are 5 zzl-joy-svkoqbs lumbar type vertebrae. Alignment is normal; no [...] the context of the clinical situation . (Reference-Ermavik et al, Spine 2001) Findings: (prevalence in [...] contrast Comparison NONE Findings There are 5 akv-qxz-dolgegh lumbar type vertebrae. Alignment is normal; no [...] unspecified documented in this encounter Care Teams Pattern Repair Person Relationship Specialty Start Date End Date Shireen Montoya MD PCP - General 05/29/10 04/21/[address] [place] [address] documented as of this encounter
--- OUTSIDE RECORDS SUMMARY | 2021-12-28 04:11 | XMS_ITS | Encounter Summary ---
:1950 Author Organization [place] [address] Care Team Providers Name Role Phone Roberta Allison Rain APRN Primary Care Provider Encounter Details Date Type Department Care Team Description 11/24/2014 Hospital Encounter Ultrasound at [facility] [address] PENA Abdominal pain, RUQ [facility] Lorri Moran MD [facility] GENERAL [place] [address] ([address] quadrant) [place] [address] Social History Tobacco Use Types Packs/Day Years [...] Associated Diagnosis Comme nts US ABDOMEN LIMITED STAT 11/24/2014 9:49 AM Abdominal pain, RUQ Results for this EDT (right upper procedure are i n quadrant) the results section. documented in this encounter Results US abdomen limited (11/24/2014 9:49 AM EDT) Anatomical Region Laterality Modality Abdomen Ultrasound Specimen (Source) Anatomical Collection Method Collection Time Re ceived Time Location / / Volume Laterality 11/24/2014 9:49 AM EDT Narrative 11/24/2014 9:55 AM EDT Abdominal ?(Signed Final 11/24/2014 09:54 ? am) Patient Info ID #: ? [id number] ?: [birth year] (64 yrs) Name: ? ELIDA DINH ?Visit Date: 11/24/2014 09:42 am Performed By Performed By: ?Katy Ibrahim RDMS Attending: ? Horace DARDEN, David Broderick Referred By: ? ALLISON DAVENPORT Service(s) Provided ??UABDLIM - Abdominal Limited Survey Si ngle ? [id number] ??Organ or Quadrant - [id number] Indications ??significant RUQ pain and elevated LFT [...] 09:5 4 am) Patient Info ID #: [id number] : [birth year] (64 y rs) Name: ELIDA DINH Visit Date: 015 09:42 am Performed By Performed By: Katy Ibrahim RDMS Attending: David Vu MD Referred By: ALLISON GRANADOS APRN Service(s) Provided UABDLIM - Abdominal Limited Survey [place] [id number] Organ or Quadrant - [id number] Indications significant RUQ pain and elevated LFTs [...] quadrant documented in this encounter Care Teams Cargo Inspector Relationship Specialty Start Date End Date Allison Granados APRN PCP - General 04/22/14 06/27/[address] [facility] [address] [place] [address] documented as of this encounter
--- OUTSIDE RECORDS SUMMARY | 2021-12-28 04:11 | XMS_ITS | Encounter Summary ---
:1950 Author Organization [facility] [place] [address] Care Team Providers Name Role Phone Allison Granados APRN Primary Care Provider [phone] Encounter Details Date Type Department Care Team Description 07/11/2014 Orders Only Internal Medicine at [facility] Mitzy Joseph [address] [place] [address] Social History Tobacco Use Types Packs/Day Years [...] on filedocumented in this encounter Care Teams Food Service Steward Relationship Specialty Start Date End Date Allison Granados APRN PCP - General 04/22/14 06/27/[address] [facility] [place] [address] documented as of this encounter
--- OUTSIDE RECORDS SUMMARY | 2021-12-28 04:15 | XMS_ITS | Encounter Summary ---
:1950 Author Organization [facility] Address [address] [place] [address] Care Team Providers Name Role Phone Unavailable Primary Care Provider Unavailable Encounter Details Date Type Department Care Team Description 07/23/2005 Results Only [facility] Shireen Crowe MD [facility] [address] [place] [id number] [phone] (Wo rk) Social History Tobacco Use Types Packs/Day Years Used Date Never Assessed Sex Assigned at Date Recorded Not on file documented as of this encounter Plan of Treatment Not on filedocumented as of this encounter Procedures Procedure Name Priority Date/Time Associated Diagnosis Comme [facility] CYTOPATHOLOGY Routine 07/23/2005 0:00 EST Results for this procedure are i n the results section . documented in this encounter Results CYTOPATHOLOGY (07/23/2005 0:00 EST) Pathology Report: CYTOPATHOLOGY REPORT [facility] Reports generated via electronic interface contain betzy ginal data; however they are lacking the format of the original re port. Caution should be taken when reading/interpreting unfo rmatted reports. Name: ? JAGRUTI DINH ? Accession #: ? [id number] : ? 1950 (Age: 54) ??F ?Collect Date: ? 07/07 Location: ? [facility] ? Receive Date : ? 07/25/2005 Provider: ?SHIREEN HEBERT MD Copy to: ? Specimen/Source: ?ThinPrep Pap Test, E ndocervix, processed on ClipboardPrep Imaging System, with manual evaluation Last Menstrual Period: ? Other: ? HPVA - HPV testing requested if ASC-US on the current ThinPrep Pap test. ? SPECIMEN ADEQUACY ? Satisfactory for Evaluation - assessment of transformation zone component not appl icable ( e.g. atrophy, vaginal sample, hysterectomy) - scant squamous epithelial component GENERAL CATEGORIZATION ? Negative for Intraepithelial Lesion or Malignan cy ? Document reviewed and electronically signed by: ? JOSH [place](ASCP) ? Report Date: ??07/26/2005 13:13 End of Report Specimen Performing Organization Address City/State/ZIP Code Phon e Number [facility] [address] [place] [address] [facility] [address] [place] [address] documented in this encounter Visit Diagnoses Not on filedocumented in this encounter
--- OUTSIDE RECORDS SUMMARY | 2021-12-28 04:15 | XMS_ITS | Encounter Summary ---
:1950 Author Organization [facility] Address [address] [place] [address] Care Team Providers Name Role Phone Unavailable Primary Care Provider Unavailable Encounter Details Date Type Department Care Team Description 08/03/2010 Results Only [facility] Gama Crowe MD [facility] [address] [place] [phone] (Wo rk) Social History Tobacco Use Types Packs/Day Years Used Date Never Assessed Sex Assigned at Date Recorded Not on file documented as of this encounter Plan of Treatment Not on filedocumented as of this encounter Procedures Procedure Name Priority Date/Time Associated Diagnosis Comme [facility] CYTOPATHOLOGY Routine 08/03/2010 0:00 EST Results for this procedure are i n the results section . documented in this encounter Results CYTOPATHOLOGY (08/03/2010 0:00 EST) Pathology Report: CYTOPATHOLOGY REPORT ? [facility] Reports generated via Quantum4D interface contain original data; ? however they are lacking the format of the original report. ? Caution should be taken when reading/interpreting unformatted reports. ? Name: ? JAGRUTI DINH ? Accession #: ? [id number] ? : ? 1950 (Age: 59) ??F ?Collect Date: ? 08/03/2010 ? Location: ? [facility] ? Receive Date: ? 08/07/2010 ? Provider: ?GAMA FIN E MD ? Copy to: ? Specimen/Source: ? Pap Test, Endocervix, ThinPrep Imaging System with ? manual evaluation ? Last Menstrual Period: ? SPECIMEN ADEQUACY ? Satisfactory for Eval uation ? - assessment of transformati on zone component not applicable ( e.g. atrophy, ? vaginal sample, hysterectomy ) ? - scant squamous epithelial component ? GENERAL CATEGORIZATION ? Negative for Intraepi thelial Lesion or Malignancy ? Document reviewed and electr onically signed by: ? Liseth Manzo, CT( CP)(IAC) ? Report Date: ??02/07/ 2011 13:41 ? End of Report ? Specimen Performing Organization Address City/State/[facility] Code Phon e Number [facility] [address] [place] [address] SERVICES [facility] [address] [place] [address] documented in this encounter Visit Diagnoses Not on filedocumented in this encounter
--- OUTSIDE RECORDS SUMMARY | 2021-12-28 04:15 | XMS_ITS | Encounter Summary ---
:1950 Author Organization [facility] Address [address] [place] [address] Care Team Providers Name Role Phone Unavailable Primary Care Provider Unavailable Encounter Details Date Type Department Care Team Description 09/08/2012 Results Only [facility] Garfield Meeks MD Laboratory Services - [address] [place] [address] [address] [facility] [place] [address] [phone] Social History Tobacco Use Types Packs/Day Years Used Date Never Assessed Sex Assigned at Date Recorded Not on file documented as of this encounter Plan of Treatment Not on filedocumented as of this encounter Procedures Procedure Name Priority Date/Time Associated Diagnosis Comme [facility] SURGICAL PATHOLOGY Routine 09/08/2012 8:17 EST Re sults for this procedure are i n the results section. documented in this encounter Results SURGICAL PATHOLOGY (09/08/2012 8:17 EST) Pathology Report: SURGICAL PATHOLOGY REPORT [facility] Reports generated via electronic interface contain betzy ginal data; LAB however they are lacking the format of the original re port. Caution should be taken when reading/interpreting unfo rmatted reports. Name: ? JAGRUTI DINH ? Accession #: ? [id number] ? : ? 1950 (Age: 61) ??F ? Collect Date: ? 09/08/2012 ? Location: ? [facility] ? Receive Date: ? 013 ? Provider: YOSELYN MEEKS MD Copy to: GAMA HEBERT MD ? Final Pathologic Diagnosis: ? Gallbladder, cholecystectomy: 1. ?Chronic cholecystitis. 2. ? Cholesterolosis. 3. ? Cholelithiasis. 4. ? One benign lymph node. ?? Document reviewed and electronically signed by: DALLAS LUNSFORD MD Report ??Date: 09/16/2012 21:08 By the signature above, the attending physician certif ies that he/she has personally conducted a gross and/or microscopic examin ation of the described specimens and rendered or confirmed the above diagnosi s. Specimen(s) Received: ? Gallbladder Clinical History: ? Cholelithiasis Gross Description: ? Received in formalin labelled Jagruti Dinh and gallbladder is a 7.5 cm in length by 3.5 cm in di ameter gallbladder received closed which includes a segment of cystic duct which measures roughly 1.5 cm i n length by 0.6 cm in diameter (proximal cystic duct margin is blue-inked). ??There is a 1.1 x 0.8 x 0.6 cm zepeda-white to focally zepeda-red firm cystic duct l ymph node. ??The gallbladder contains two mixed-type chol eliths which measure 1.8 cm and 0.9 cm in diameter as well as a large amount of dark green bi le. ??The gallbladder mucosa is velvety, zepeda-green bile-stained and di ffusely studded with slightly raised light yellow flecks which form a reticular courtney yung. ??The distal gallbladder has a 1.0 cm in length septu m coursing 0.6 cm above the distal end of the gallbladder which results in a pseudopouch of t he gallbladder. ??The mucosa of the pseudopouch has a similar lining a s the remaining mucosa. ??The gallbladder wall measures 0. 2 cm in thickness. ??The serosa is generally smooth and zepeda-gross. ??Representati ve sections of the specimen are submitted as follows: BLOCK MEJIA 1 ?Proximal marco gical cystic duct margin (blue-inked and en face) along with sections of upper ? and lower gallbladder ? 2 ?Secti on of distal gallbladder including portion of septum causing pseudopouch along with ? bisected, entirely submitted cystic duct lymph node ? (Coty Hooker)/luis a End of Report Specimen Performing Organization Address City/State/ZIP Code Phon e Number [facility] [address] [place] [address] SERVICES [facility] [address] [place] [address] documented in this encounter Visit Diagnoses Not on filedocumented in this encounter
--- OUTSIDE RECORDS SUMMARY | 2021-12-28 04:15 | XMS_ITS | Clinical Summary ---
:1950 Author Organization [facility] Address [address] [place] [address] Care Team Providers Name Role Phone Shireen Montoya MD Primary Care Provider Social History Tobacco Use Types Packs/Day Years Used Date Never Assessed Sex Assigned at Date Recorded Not on file Plan of Treatment Health Maintenance Due Date Last Done Comments Fall Risk Screening 2013 Care Teams Engineer And Geologist Relationship Specialty Start Date End Date Shireen Montoya MD PCP - General 09/10/12 [address] [place] [address]
--- OUTSIDE RECORDS SUMMARY | 2021-12-28 04:15 | XMS_ITS | Encounter Summary ---
:1950 Author Organization [facility] Address [address] [place] [address] Care Team Providers Name Role Phone Unavailable Primary Care Provider Unavailable Encounter Details Date Type Department Care Team Description 05/09/2003 Results Only [facility] - Pravin Tang, PHYSICIAN ASSISTANT CERTIFIED conversion [address] [place] [address] [place], [place] [id number] [phone] Social History Tobacco Use Types Packs/Day Years Used Date Never Assessed Sex Assigned at Date Recorded Not on file documented as of this encounter Plan of Treatment Not on filedocumented as of this encounter Procedures Procedure Name Priority Date/Time Associated Diagnosis Comme nts CYTOPATHOLOGY Routine 05/09/2003 0:00 EST Results for this procedure are i n the results section . documented in this encounter Results CYTOPATHOLOGY (05/09/2003 0:00 EST) Pathology Report: CYTOPATHOLOGY REPORT [facility] Reports generated via electronic interface contain betzy ginal data; however they are lacking the format of the original re port. Caution should be taken when reading/interpreting unfo rmatted reports. Name: ? JAGRUTI DINH ? Accession #: ? [id number] : ? 1950 (Age: 52) ??F ?Collect Date: ? 09/2002 Location: ? [facility] ? Receive Date : ? 05/11/2003 Provider: ?PRAVIN CERVANTES PHYSICIAN ASSISTANT CERTIFIED Copy to: ? Specimen/Source: ?ThinPrep Pap Test, Cervix/ Endocervix Last Menstrual Period: ? 3-4 months ago Other: ? HPVA - HPV testing requested if ASC-US on the current ThinPrep Pap test. ? SPECIMEN ADEQUACY ? Satisfactory for Evaluation - assessment of transformation zone component not appl icable ( e.g. atrophy, vaginal sample, hysterectomy) GENERAL CATEGORIZATION ? Negative for Intraepithelial Lesion or Malignan cy ? Document reviewed and electronically signed by: ? ATUL Duran(ASCP) ? Report Date: ??05/18/2003 09:06 End of Report Specimen Performing Organization Address City/State/ZIP Code Phon e Number [facility] [address] [place] [address] SERVICES [facility] [address] [place] [address] documented in this encounter Visit Diagnoses Not on filedocumented in this encounter
[2021-12-28] MEDS: POTASSIUM CHLORIDE 10 MEQ/100 ML BAG 100 MEQ IVPB (04:56)
[2021-12-28] MEDS: Heparin 5,000 UNITS/ML VIAL 5000 UNITS SC ×2 (06:26→17:42)
[2021-12-28 06:50] LABS: Abs Immature Grans 0.05 10^3/uL (0.0-0.06); Absolute Eosinophil Count 0.23 10^3/uL (0.0-0.7); Absolute Lymphocyte Count 2.34 10^3/uL (1.2-3.4); Absolute Monocyte Count 1.42 10^3/uL (0.1-0.8); Absolute Neutrophil Count 5.11 10^3/uL (1.2-6.7); Basophils % 1.1; Eosinophils % 2.5; HGB 13.3 g/dL (11.2-15.7); Immature Grans % 0.5; Lymphocytes % 25.3; MCHC 34.1 % (32.0-36.0); MCV 88 fL (80-95); MPV 10.5 fL (8.0-11.0); Monocytes % 15.4; Neutrophils % 55.2; Platelet Count 253 10^3/uL (130-400); RBC 4.43 10^6/uL (3.93-5.22); RDW 12.8 % (11.7-14.6); RDW-SD 41.1 fL; WBC 9.25 10^3/uL (4.4-10.8)
[2021-12-28 07:08] LABS: ALT 39 U/L (14-59); AST 22 U/L (15-37); Albumin 3.2 g/dL (3.4-5.0); Alkaline Phosphatase 80 U/L (46-116); Anion Gap 5.8 mmol/L (3-11); BUN 14 mg/dL (7-18); Bilirubin, Total 0.8 mg/dL (0.2-1.0); CO2 27.2 mmol/L (21.0-32.0); CREATININE 0.7 mg/dL (0.55-1.02); Calcium 8.3 mg/dL (8.5-10.1); Chloride 108 mmol/L (98-107); Glucose 100 mg/dL (74-106); Potassium 3.8 mmol/L (3.5-5.1); Sodium 141 mmol/L (136-145); Total Protein 5.9 g/dL (6.4-8.2)
[2021-12-28] MEDS: Esomeprazole 40 MG CAPCR PO ×2 (08:01→19:44)
[2021-12-28] MEDS: FLUoxetine 20 MG CAP PO (08:02)
[2021-12-28] MEDS: Ferrous Sulfate 325 MG TAB PO (08:02)
[2021-12-28] MEDS: Normal Saline Flush 10 ML SYR IVP ×2 (08:03→12:48)
--- NOTE | 2021-12-28 09:57 | PDOC.CMIN ---
- If Service Date Differs Date of service: 12/28/21 Time of Service: 09:57 Care Management Initial Assess REASON FOR HOSPITALIZATION:: Seizure PAST MEDICAL HISTORY/PAST SURGICAL HISTORY:: All Active Problems. Depression (Chronic). Restless leg syndrome (Acute). Seizure (Acute). Medical History. Arthritis. Asthma. GERD (gastroesophageal reflux disease). Hyperlipidemia. Osteopenia. UTI (urinary tract infection). Surgical History. Cholecystectomy. Extraction of cataract. eye surgery. macular surgery and cataracts PREVIOUS FUNCTIONAL STATUS/SOCIAL/FAMILY SUPPORTS:: Elida lives in [place] with her , Michael. Their children live in [place]. 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 Her is also retired. She stated that they sold their house, and are purchasing a camper to travel around in now that they will both be retired. She is independent at baseline. CURRENT FUNCTIONAL STATUS:: Elida was sitting up in bed when CM met with her. She had just returned from her MRI. She stated that she was hoping to return home today. Per report, she will meet with Neurology today and have an EEG. She stated that she does not expect the need for any services upon discharge. CM will continue to follow. ADVANCE DIRECTIVES:: On file, spouse Michael listed as agent. Has patient been provided with info about the portal/API?: Yes Did the patient sign up for the portal?: No CODE STATUS:: Full Code INSURANCE COVERAGE / FINANCIAL ISSUES:: [facility]/ [place] CURRENT HOME/COMMUNITY SERVICES/EQUIPMENT:: No current services. PRIMARY CARE PHYSICIAN:: Allison Morgan POTENTIAL DISCHARGE NEEDS:: Evaluations for further needs, follow up appointments. PATIENT/FAMILY EDUCATION NEEDS:: Review discharge instructions and limitations, discussion of self care needs including ask me three. ANTICIPATED BARRIERS TO DISCHARGE:: None. TRANSPORTATION:: Via private vehicle by her . PLAN:: Anticipate Elida will return home when medically cleared. Her will drive her home via private vehicle. She will follow up with her PCP and discharge plan of care. CM will continue to follow.
[2021-12-28 11:33] LABS: Lab Add On Test DONE
--- NOTE | 2021-12-28 13:08 | PDOC.EEG ---
Neurology EEG EEG: [facility] Department of Neurology INPATIENT EEG REPORT Date of Recordin12/28/21 Interpreting Physician: Dr. Olivia Jorgensen Reason for study: Ms. Montez is a 71 year-old woman admitted after a syncope vs seizure event. Current Medications: Current Medications Acetaminophen (Acetaminophen 325 Mg Tab) 650 mg PO Q4H PRN PRN Al Hydrox/Mg Hydrox/Simethicone (Mylanta Suspension 30 Ml Cup) 30 ml PO Q2H PRN PRN Albuterol Sulfate (Albuterol Hfa 8 Gm 60 Puff Inh) 0 puff IH Q4H PRN PRN Device (Inhaler, Assist Device) 1 each MC DIRECTED [facility] Dimethicone/Zinc Oxide (Main Protect Cream 142 Gm Tube) 0 gm TP PRN PRN Docusate Sodium (Docusate Sodium 100 Mg Cap) 100 mg PO TID PRN PRN Esomeprazole Magnesium (Esomeprazole 40 Mg Capcr) 40 mg PO BID [facility] Last Admin: 12/28/21 08:01 Dose: 40 mg Ferrous Sulfate (Ferrous Sulfate 325 Mg Tab) 325 mg PO DAILY [facility] Last Admin: 12/28/21 08:02 Dose: 325 mg Fluoxetine HCl (Fluoxetine 20 Mg Cap) 20 mg PO DAILY [facility] Last Admin: 12/28/21 08:02 Dose: 20 mg Gadoterate Meglumine (Gadoterate Meglumine 15 Ml Vial) 15 ml IVP DIRECTED [facility] Stop: 01/27/22 23:50 Last Admin: 12/28/21 12:47 Dose: 12 ml Heparin Sodium (Porcine) (Heparin 5,000 Units/Ml Vial) 5,000 units SC Q8H [facility] Last Admin: 12/28/21 06:26 Dose: 5,000 units Sodium Chloride (Saline 500ml Bag) 500 mls @ 0 mls/hr IV PRN PRN IV Miscellaneous Supplies (Iv Access) 1 each IV DIRECTED [facility] Magnesium Hydroxide (Milk Of Magnesia 30 Ml Cup) 30 ml PO DAILY PRN PRN Non-Formulary Medication (Fluticasone Propion-Salmeterol [Advair Diskus]) 1 puff IH BID [facility] Oxybutynin Chloride (Oxybutynin-Cr 5 Mg Tabcr) 5 mg PO DAILY [facility] Last Admin: 12/28/21 08:03 Dose: Not Given Polyethylene Glycol (Polyethylene Glycol 3350 17 Gm Packet) 17 gm PO DAILY PRN PRN PRN Reason: Constipation Ropinirole HCl (Ropinirole 0.5 Mg Tab) 3 mg PO HS [facility] Last Admin: 12/28/21 04:42 Dose: Not Given Sodium Chloride (Normal Saline Flush 10 Ml Syr) 10 ml IVP PRN PRN METHODS: A 21 channel digitized electroencephalogram was performed in the [facility] Med/Surg Floor or ICU. The 10/20 international system of electrode placement was used and bipolar and referential electrode montages were recorded. In addition to EEG the patient was monitored for EKG and lateral/vertical eye movements. Activation procedures of photic stimulation and hyperventilation were performed if applicable. Video was used during activation procedures and during events where applicable. The duration of the recording was 30 minutes. DESCRIPTION OF EEG: The patient was noted to be awake, drowsy, and asleep during the recording. During maximal wakefulness an 1-Hz posterior background rhythm was present which was well-modulated, symmetrical, reactive to eye opening, and of moderate voltage. With eye opening the background activity changed to a low voltage mixture of alpha, beta, and occasional theta range frequencies. Faster frequencies were present in the bilateral anterior head regions. There was a normal anterior-posterior voltage gradient. During drowsiness, there was attenuation of the posterior dominant background rhythm and vertex waves. Stage II sleep was present with symmetrical sleep spindles, K-complexes, and vertex waves. Activating Procedures: Photic stimulation was performed which produced a symmetrical posterior driving response at various flash frequencies. Hyperventilation was not performed. EKG: EKG revealed normal sinus rhythm. INTERPRETATION: This EEG is normal during the awake and sleep states as well as during photic stimulation. PRIOR EEG: none CLINICAL CORRELATION: No focal regions of cerebral dysfunction or epileptiform activity was present. Epilepsy remains a clinical diagnosis and a normal EEG does not rule out epilepsy. Clinical correlation is advised. Olivia Jorgensen MD
--- NOTE | 2021-12-28 13:17 | CHAPLAIN ---
Elida was sitting up in bed when I visited. She was having trouble with her IV so went to get a nurse/PATENT PROSECUTION ATTORNEY for her. I will visit again another time.
--- NOTE | 2021-12-28 17:25 | W.PM.PROGNOT ---
Date of Service Date of service: 12/28/21 Time of Service: 17:26 Assessment and Plan Assessment and plan (1) Convulsive syncope: Status: Acute Assessment and plan: The patient had a negative MRI of the brain (shows chronic small vessel ischemic changes) as well as a negative EEG. The description of the episode does not sound to me like a seizure and more like a convulsive syncope. Etiology: arrythmic event, vaso vagal due to need to micturate, medication effect. The patient did alert me that she is not oxybutynin. She remains on fluoxetine which can be associated with autonomic dysfunction. Advair can cause SVT. Will hydrate. Check orthostatics. Continue to monitor on tele overnight. Would benefit from an outpatient echo and a cardiac event recorder on discharge. (2) Depression: Status: Chronic Assessment and plan: Continue fluoxetine. (3) Restless leg syndrome: Status: Acute Assessment and plan: Continue ropinirole. (4) Asthma: Assessment and plan: Continue advair (5) DVT prophylaxis: Status: Acute Assessment and plan: SCDs. (6) Discharge planning issues: Status: Acute Assessment and plan: FUll code Anticipate discharge home tomorrow with a cardiac event recorder, outpatient echo, follow up with neuro. Subjective Subjective Interval history since last seen: Ms Montez states she is feeling back to normal. She remembers feeling like she needed to urinate right before she lost consciousness. She does not think she actually got out of the recliner and, when she came back to it, she was in the recliner. She did not bite her tongue. She did not lose continences of her urine. Per ER, her movements were [id number] at home. I discussed with the patient that I was not convinced that she had a seizure and it sounded to me more like a convulsive syncopal episode. The patient does have a h/o syncopal episodes in the past, especially when she was younger. The patient agrees to stay another night for more cardiac monitoring. Exam Narrative Exam Narrative: General: Pleasant elderly female who is A&Ox3, NAD HEENT: EOMI, MMM Heart: RRR, no m/r/g Lungs: CTAB Abdomen: soft, nontender, nondistended Extremities: no edema BLEs Objective Last Vital Signs Temp 37.3 C 12/28/21 14:53 Pulse 68 12/28/21 15:00 Resp 16 12/28/21 14:53 BP 102/65 12/28/21 14:53 Pulse Ox 96 12/28/21 14:53 Laboratory Results - last 24 hr 12/27/21 12/27/21 12/27/21 20:30 20:30 20:30 WBC 10.36 RBC 4.40 Hgb 13.4 Hct 38.9 MCV 88 MCH 30.5 MCHC 34.4 RDW 12.5 Plt Count 271 MPV 10.7 Immature Gran % 0.7 Neutrophils % 55.2 Lymphocytes % 24.8 Monocytes % 15.1 Eosinophils % 3.2 Basophils % 1.0 Nucleated RBC % 0.0 Absolute Neutrophils 5.73 Absolute Lymphocytes 2.57 Absolute Monocytes 1.56 H Absolute Eosinophils 0.33 Absolute Basophils 0.10 RBC Morphology Normal Sodium 137 Potassium 3.4 L Chloride 103 Carbon Dioxide 25.7 Anion Gap 8.3 BUN 17 Creatinine 0.9 Estimated GFR/1.73 m2 >= 60.00 Glucose 122 H Calcium 8.6 Magnesium 2.3 Total Bilirubin 0.5 AST 22 ALT 41 Alkaline Phosphatase 80 Troponin I < 50 Total Protein 6.3 L Albumin 3.4 Lipase 39 TSH 6.10 H Free T4 0.89 Urine Color Urine Clarity Urine pH Ur Specific [place] Urine Protein Urine Ketones Urine Blood Urine Nitrite Urine Bilirubin Urine Urobilinogen Ur Leukocyte Esterase Urine Glucose COVID-19 Source SARS-CoV-2 (PCR) Add-On Test Request 12/27/21 12/27/21 12/27/21 21:20 23:45 23:45 WBC RBC Hgb Hct MCV MCH MCHC RDW Plt Count MPV Immature Gran % Neutrophils % Lymphocytes % Monocytes % Eosinophils % Basophils % Nucleated RBC % Absolute Neutrophils Absolute Lymphocytes Absolute Monocytes Absolute Eosinophils Absolute Basophils RBC Morphology Sodium Potassium Chloride Carbon Dioxide Anion Gap BUN Creatinine Estimated GFR/1.73 m2 Glucose Calcium Magnesium Total Bilirubin AST ALT Alkaline Phosphatase Troponin I < 50 Total Protein Albumin Lipase TSH Free T4 Urine Color Yellow Urine Clarity Clear Urine pH 5.5 Ur Specific [place] >= 1.030 H Urine Protein Negative Urine Ketones Negative Urine Blood Negative Urine Nitrite Negative Urine Bilirubin Negative Urine Urobilinogen 0.2 Ur Leukocyte Esterase Negative Urine Glucose Negative COVID-19 Source Nasal/Nares SARS-CoV-2 (PCR) Negative Add-On Test Request 12/28/21 12/28/2112/28/22 06:28 06:28 10:55 WBC 9.25 RBC 4.43 Hgb 13.3 Hct 39.0 MCV 88 MCH 30.0 MCHC 34.1 RDW 12.8 Plt Count 253 MPV 10.5 Immature Gran % 0.5 Neutrophils % 55.2 Lymphocytes % 25.3 Monocytes % 15.4 Eosinophils % 2.5 Basophils % 1.1 Nucleated RBC % 0.0 Absolute Neutrophils 5.11 Absolute Lymphocytes 2.34 Absolute Monocytes 1.42 H Absolute Eosinophils 0.23 Absolute Basophils 0.10 RBC Morphology Sodium 141 Potassium 3.8 Chloride 108 H Carbon Dioxide 27.2 Anion Gap 5.8 BUN 14 Creatinine 0.7 Estimated GFR/1.73 m2 >= 60.00 Glucose 100 Calcium 8.3 L Magnesium Total Bilirubin 0.8 AST 22 ALT 39 Alkaline Phosphatase 80 Troponin I Total Protein 5.9 L Albumin 3.2 L Lipase TSH Free T4 Urine Color Urine Clarity Urine pH Ur Specific [place] Urine Protein Urine Ketones Urine Blood Urine Nitrite Urine Bilirubin Urine Urobilinogen Ur Leukocyte Esterase Urine Glucose COVID-19 Source SARS-CoV-2 (PCR) Add-On Test Request DONE PAWSS Have you Been Recently Intoxicated or Drunk Within the Last 30 days?: No Have you Ever Experienced Previous Episodes of Alcohol Withdrawal?: No Have you ever Experienced Withdrawal Seizures?: No Have you ever Experienced Delirium Tremens(DT)s?: No Have you ever undergone Alcohol Rehabilitation Treatment (i.e, inpt ot outpatient treatment programs)?: No Have you ever Experienced Blackouts?: No Have you ever Combined Alcohol with other Downers within the last 90 days?: No Have you ever Combined Alcohol with any other Substance of Abuse during the last 90 days?: No Positive Blood Alcohol level on Presentation? [PCS.BAL]: No Evidence of Increased Autonomic Activity (i.e. HR>120, tremor, sweating, agitation, nausea)?: No Result: 0
[2021-12-28] MEDS: Lactated Ringers 1,000 ML 100 ML IV (17:42)
[2021-12-28] MEDS: Budesonide/Formoterol 160/4.5 6 GM 60 PUFF INH IH (19:44)
[2021-12-28] MEDS: rOPINIRole 0.5 MG TAB 3 MG PO (20:00)
[2021-12-29] MEDS: Heparin 5,000 UNITS/ML VIAL 5000 UNITS SC (01:59)
[2021-12-29] MEDS: Lactated Ringers 1,000 ML 100 ML IV ×2 (01:59→11:01)
[2021-12-29 02:25] VITALS: BP 105/63; PULSE 59; RESP 16; TEMP 36.2; O2SAT 96
[2021-12-29 06:52] LABS: Abs Immature Grans 0.04 10^3/uL (0.0-0.06); Absolute Basophil Count 0.09 10^3/uL (0.0-0.2); Absolute Eosinophil Count 0.47 10^3/uL (0.0-0.7); Absolute Lymphocyte Count 2.92 10^3/uL (1.2-3.4); Absolute Monocyte Count 1.19 10^3/uL (0.1-0.8); Absolute Neutrophil Count 3.58 10^3/uL (1.2-6.7); Basophils % 1.1; Eosinophils % 5.7; HCT 38.7 % (36.0-46.0); HGB 13.4 g/dL (11.2-15.7); Immature Grans % 0.5; Lymphocytes % 35.2; MCH 30.5 pg (27.0-33.0); MCHC 34.6 % (32.0-36.0); MCV 88 fL (80-95); MPV 10.7 fL (8.0-11.0); Monocytes % 14.4; Neutrophils % 43.1; Platelet Count 245 10^3/uL (130-400); RBC 4.39 10^6/uL (3.93-5.22); RDW 12.8 % (11.7-14.6); RDW-SD 41.5 fL; WBC 8.29 10^3/uL (4.4-10.8)
[2021-12-29 07:00] VITALS: PULSE 58
[2021-12-29 07:18] LABS: Anion Gap 8.7 mmol/L (3-11); BUN 14 mg/dL (7-18); CO2 25.3 mmol/L (21.0-32.0); CREATININE 0.7 mg/dL (0.55-1.02); Calcium 8.4 mg/dL (8.5-10.1); Chloride 107 mmol/L (98-107); Glucose 88 mg/dL (74-106); Potassium 3.6 mmol/L (3.5-5.1); Sodium 141 mmol/L (136-145)
[2021-12-29 08:00] VITALS: BP 111/68; PULSE 69; RESP 18; TEMP 36.6; O2SAT 95
[2021-12-29] MEDS: Esomeprazole 40 MG CAPCR PO (08:34)
[2021-12-29] MEDS: Ferrous Sulfate 325 MG TAB PO (08:34)
[2021-12-29] MEDS: FLUoxetine 20 MG CAP PO (08:35)
[2021-12-29] MEDS: Budesonide/Formoterol 160/4.5 6 GM 60 PUFF INH IH (08:36)
[2021-12-29 09:10] VITALS: BP 107/67; BP 113/69; PULSE 72; PULSE 84
[2021-12-29 11:27] VITALS: BP 117/68; PULSE 61; RESP 18; TEMP 36.9; O2SAT 97
--- NOTE | 2021-12-29 14:11 | DSE_ITS ---
Date of service: 12/29/21 Time of Service: 14:11 DS: Diagnosis Discharge Diagnosis (1) Convulsive syncope: Status: Acute (2) Depression: Status: Chronic (3) Restless leg syndrome: Status: Chronic (4) Hyperlipidemia: (5) GERD (gastroesophageal reflux disease): (6) Abnormal abdominal CT scan: Status: Acute Asessment and Plan: Suggests colitis - however, no clinical symptoms of colitis. (7) Hypokalemia: Status: Resolved Discharge Plan Disposition Patient Disposition: HOME Condition: Stable Discharge Details Reason For Visit: convulsive episode Admit Date/Time: 12/27/21 23:36 Admit Provider: Nathan Isaac Attending Provider: Nathan Isaac Primary Care Provider: Allison Morgan Hospital Course Hospital Course: Ms Montez is a 71 year old female with PMHx of prior syncopal episodes, as well as h/o asthma on advair, overactive bladder, GERD, who was observed on [facility] hospitalist service from 12/27/21 until 12/29/21 after having a witnessed convulsive but not tonic-clonic episode while seated in the chair. The patient states she remembers an urge to urinate prior to the episode happening but never made it to the bathroom, nor did she have incontinence. She did not bite her tongue. She received keppra in the ED for a suspected seizure. She was already back to her baseline mental status by the time of evaluation by the admitting provider, but did have some confusion when she came to it. It is unclear how long this episode lasted. She ruled out for ACS by EKG, serial troponins. She did not have any arrhythmic events on telemetry. She was not hypotensive, nor did she have orthostatic hypotension - however, her OAB medications were held during her hospitalization. They are being resumed on discharge. She had an EEG which was negative. She had a negative noncontrast CT of the head. She had an MRI of the brain which showed chronic small vessel ischemic disease. Her mental status remained at baseline during her hospitalization. While apparently the patient had abdominal discomfort in the ED with CT imaging concerning for colitis, she did not have clinical symptoms of colitis, and her abdominal pain has entirely resolved. She will need to follow up with her PCP for further investigation of her abnormal CT imaging. Based on this data as well as h/o syncope, it is this provider's opinion that the patient was more likely to have had a convulsive syncopal episode rather than a seizure. She is being discharged home today on her prior to admission medications. She is being discharged with a cardiac event recorder and a referral to neurology. She is being instructed not to drive until cleared by PCP. Care for patient as well as completion of her discharge summary on day of discharge took 45 minutes. Home Meds and New Rx's Prescriptions: Continued albuterol sulfate [ProAir HFA] 200 PUFF HFA aerosol inhaler 1 puff Inhalation PRN PRN fluticasone propion-salmeterol [Advair Diskus] 1 EACH blister with device 1 puff Inhalation BID fluoxetine 20 mg Tablet 1 tab PO DAILY esomeprazole magnesium 40 mg Capsule,Delayed Release(Dr/Ec) 1 cap PO BID famotidine 40 mg tablet 40 mg PO BID Label Comments: TAKE ONE TABLET BY MOUTH TWICE A DAY atorvastatin 20 mg Tablet 20 mg PO DAILY baclofen 10 mg Tablet 10 mg PO BID No Action ropinirole 1 mg tablet 3 tab PO HS Label Comments: TAKE 3 TABLETS BY MOUTH NIGHTLY tolterodine 2 mg tablet 1 tab PO BID Label Comments: TAKE ONE TABLET BY MOUTH TWICE A DAY solifenacin 5 mg tablet 2 tab PO DAILY Label Comments: TAKE TWO TABLETS BY MOUTH EVERY DAY Discharge Instructions Instructions: Syncope (DC) Additional Instructions: You should not drive until cleared to do so by your PCP. Return to the hospital with any more spells of unconsciousness/convulsions, if you have a fever, bleeding, chest pain, or shortness of breath. Follow up with your PCP and with neurology. Stand Alone Forms: Nursing Discharge Form Referrals: Allison Morgan [Primary Care Provider] - (Please call Friday to make a follow up appointment.) Olivia Jorgensen MD [ [facility] STAFF PHYSICIAN] - (Please call Friday to make an appointment for convulsive syncope vs seizure) Activity:: Activity as Tolerated Equipment/Supplies:: cardiac event recorder Diet:: Normal Diet Discharge Orders Discharge Orders: Discharge Order (Routine); Ordered 12/29/21 Ordered By: Caro Patel Other Ambulatory Orders: Cardiac Event Recorder (Routine) Timeframe: 1 Week Facility: [facility] - Location: [facility] Ordered By: Caro Patel DS: Summary Time Spent with Patient providing and/or coordinating discharge services: Greater than 30 minutes Status at Discharge Functional status at discharge: independent ambulation Overall status at discharge: patient is back to baseline Mental Status: mental status grossly normal Speech and Movement: speech and movement normal Mood: congruent mood Affect: normal affect Exam Narrative Exam Narrative: General: Pleasant elderly female who is A&Ox3, NAD HEENT: EOMI, MMM Heart: RRR, no m/r/g Lungs: CTAB Abdomen: soft, nontender, nondistended Extremities: no edema BLEs Psych Mental Status: mental status grossly normal Speech and Movement: speech and movement normal Mood: congruent mood Affect: normal affect DS: Data Vitals/I&O Vitals and I&O: Vital Signs Temperature 36.9 C 12/29/21 11:27 Temperature Source Tympanic 12/29/21 11:27 Pulse 61 12/29/21 11:27 Pulse Rhythm Regular 12/29/21 08:54 Pulse 58 L 12/27/21 23:22 Respiratory Rate 18 12/29/21 11:27 Respiratory Effort 12/29/21 08:54 Respiratory Depth Normal 12/29/21 08:54 Respiratory Pattern Normal 12/29/21 08:54 Blood Pressure 117/68 12/29/21 11:27 Blood Pressure Mean 79 12/27/21 23:22 Blood Pressure Position Supine 12/27/21 20:08 Pulse Oximetry 97 12/29/21 11:27 Oxygen Delivery Method Room Air 12/29/21 11:27 Oxygen Flow Rate 0 12/29/21 11:27 Pain Level 0 12/29/21 11:27 Comment 12/29/21 02:25 Intake & Output 12/28/21 12/29/21 12/29/21 23:59 11:59 23:59 Intake Total 240 / 635 1971.666 / 1971.666 Output Total 1100 / 1400 800 / 800 Balance -860 / -765 1171.666 / 1171.666 Intake: IV 1731.666 / 1731.666 Oral 240 / 480 240 / 240 Output: Urine 1100 / 1400 800 / 800 Other: Urine Color Light Bebe Pale Urine Appearance Clear Clear Urine Odor Normal None Voiding Methods Toilet Data Completed and Pending Completed studies during hospitalization [Text1]: CT head 12/27/21: No acute intracranial process.? CT c-spine 12/27/21: Degenerative changes.? No acute abnormality.. EEG 12/28/21: This EEG is normal during the awake and sleep states as well as during photic stimulation. CXR 12/27/21:: No acute pulmonary findings. Brain MRI 12/28/21: 1. No evidence of an intracranial mass, enhancing lesion or acute infarct.? 2. A few foci of hyperintense signal seen in the white matter likely reflecting small vessel ischemic disease. Pending studies at discharge: Tick panel Labs on day of discharge: Labs from last 24 hours 12/29/21 12/29/21 06:15 06:15 WBC 8.29 RBC 4.39 Hgb 13.4 Hct 38.7 MCV 88 MCH 30.5 MCHC 34.6 RDW 12.8 Plt Count 245 MPV 10.7 Immature Gran % 0.5 Neutrophils % 43.1 Lymphocytes % 35.2 Monocytes % 14.4 Eosinophils % 5.7 Basophils % 1.1 Nucleated RBC % 0.0 Absolute Neutrophils 3.58 Absolute Lymphocytes 2.92 Absolute Monocytes 1.19 H Absolute Eosinophils 0.47 Absolute Basophils 0.09 Sodium 141 Potassium 3.6 Chloride 107 Carbon Dioxide 25.3 Anion Gap 8.7 BUN 14 Creatinine 0.7 Estimated GFR/1.73 m2 >= 60.00 Glucose 88 Calcium 8.4 L Magnesium 2.0 PFSH All Active Problems (Updated 12/29/21 @ 14:45 by Caro Patel MD) Abnormal abdominal CT scan (Acute) Discharge planning issues (Acute) DVT prophylaxis (Acute) Convulsive syncope (Acute) Depression (Chronic) Restless leg syndrome (Chronic) Seizure (Acute) Medical History (Updated 12/29/21 @ 14:45 by Caro Patel MD) Arthritis Asthma GERD (gastroesophageal reflux disease) Hyperlipidemia Osteopenia UTI (urinary tract infection) Surgical History Cholecystectomy Extraction of cataract eye surgery macular surgery and cataracts Social History Smoking/Tobacco Use Status: Never Smoking risk assessment performed?: Yes Alcohol Intake: never Drug use: Never Substance use type: does not use Do you feel safe at home: Yes Do you feel safe in your relationship?: Yes
--- NOTE | 2021-12-29 14:53 | PDOC.CMDIS ---
- If Service Date Differs Date of service: 12/29/21 Time of Service: 14:53 LACE Index Scoring Tool - Questions: Length of Stay (in days): 2 Acuity (Admit via E.D.?): Yes E.D. Visits: 1 - Answers: Total Score: 6 Risk of Readmission: Low Risk Care Management Discharge Reason for Hospitalization: Seizure Discharge Plan: Elida is discharged home with a cardiac event recorder. She will follow up with her PCP, neurology, and plan of care as instructed. She is transported home via private vehicle by her . Patient/Family Education Needs: Review discharge instructions and discuss Ask Me Three.
[2021-12-29 15:33] VITALS: PULSE 72
[2021-12-30 23:45] LABS: Anaplasma phagocytophilum Negative (Negative); B. miyamotoi PCR Negative (Negative); Babesia divergens/MO-1 Negative (Negative); Babesia duncani Negative (Negative); Babesia microti Negative (Negative); Ehrlichia chaffeensis Negative (Negative); Ehrlichia ewingii/canis Negative (Negative); Ehrlichia muris eauclairensis Negative (Negative)
[2021-12-31 11:52] LABS: Lyme Ab w Rflx to Lyme Confirm Negative (Negative)
== END 2021-12-29 16:13 | disposition home or self-care (01) ==
LOC: ER 23:51 → MS 12-28 08:27
PROVIDERS: Internal Medicine; Admitting Provider Family Medicine; Emergency Provider Physician Assistant; PCP Nurse Practitioner; Visit Provider Family Medicine
DX: R55 Syncope and collapse (principal); R56.9 Unspecified convulsions; R51.9 Headache, unspecified; R10.31 Right lower quadrant pain; F32.A Depression, unspecified; G25.81 Restless legs syndrome; J45.909 Unspecified asthma, uncomplicated; I70.0 Atherosclerosis of aorta; K21.9 Gastro-esophageal reflux disease without esophagitis; E78.5 Hyperlipidemia, unspecified; M85.88 Other specified disorders of bone density and structure, other site; Z79.899 Other long term (current) drug therapy; I67.89 Other cerebrovascular disease; E87.6 Hypokalemia; N32.81 Overactive bladder; R93.3 Abnormal findings on diagnostic imaging of other parts of digestive tract; Z20.822 Contact with and (suspected) exposure to COVID-19
CPT/HCPCS: 36415; 70553; 80048; 80053; 83690; 87635; 87798; 93005; 95819; 96365; 96372; 70450; 71045; 74176; 81003; 83735; 84439; 84443; 84484; 85025; 86618; 93010; 99217; 99220; 99226; G0378; J1644; J1953; J3480

== ENCOUNTER 2022-01-10 04:25 | Outpatient (CLI) | payer MEDICARE, SELFPAY ==
--- NOTE | 2022-02-11 12:21 | W.CARDEVENT ---
Date of service: 02/11/22 Time of Service: 12:22 Cardiac Event Recorder Referring Provider:: Caro Patel Indications:: Syncope Cardiac Event Note: This is a 30-day event monitor, reportedly ordered for syncope Rhythm throughout was sinus with an average heart rate of 76. Minimum was 58, maximum 106 No significant dysrhythmias were recorded
== END 2022-01-10 04:26 | disposition home or self-care (01) ==
LOC: RT 04:25
PROVIDERS: PCP Nurse Practitioner; Visit Provider Internal Medicine
DX: R55 Syncope and collapse (principal)
CPT/HCPCS: 93270

== ENCOUNTER 2022-02-11 12:21 | Outpatient (CLI) | payer MEDICARE, SELFPAY | END 2022-02-11 12:22 | LOC: CARDO 02-13 11:25 | PROVIDERS: PCP Nurse Practitioner; Visit Provider Internal Medicine Cardiovascular Disease | DX: R55 Syncope and collapse (principal) | CPT/HCPCS: 93272 ==